=== PATIENT | male | born 1960 | race Caucasian/White ===

== ENCOUNTER 2016-02-14 21:49 | Inpatient (IN) | payer OTHER ==
[2016-02-14] MEDS ORDERED: ALBUTEROL SO4 2.5/IPRATROPIUM 0.5 INH SOL 3 ML VIAL.NEB. NEB ONE ×2 (21:53→22:20)
--- NOTE | 2016-02-14 22:08 | PDOC ---
History of Present Illness - General History Source: Patient, EMS Exam Limitations: No Limitations - History of Present Illness Initial Comments: 02/14/16 22:11 The patient is a 55 year old male, with a significant past medical history of CHF, a-fib, "blood clot on heart", CAD, ASHD, Non-ischemic CMP, cardiomegaly, diabetes, diverticulitis, CKD, CRI, HTN, HLD and cirrhosis, who presents to the emergency department with shortness of breath and urinary retention for a couple of days. He notes that the shortness of breath has been worsening. On route EMS administered 3 duonebs. He notes that he has been compliant with his diuretics. The patient denies chest pain, headache and dizziness. Denies fever, chills, nausea, vomit, diarrhea and constipation. Denies dysuria, frequency and hematuria. Allergies: Ciprofloxacine Past surgical history: Right foot debridement Social history: No alcohol, tobacco or drug use reported Cardiology - Dr. Ho <Mario Alberto Martins - Last Filed: 02/14/16 22:11> - General History Source: Patient <Randa Carteran - Last Filed: 02/14/16 22:50> - General Chief Complaint: Respiratory Distress Stated Complaint: S.O.B. Time Seen by Provider: 02/14/16 22:05 Past History <Mario Alberto Martins - Last Filed: 02/14/16 22:11> - Past Medical History Anemia: No Asthma: No Cancer: No Cardiac Disorders: Yes (a-fib, "blood clot on heart", CAD, ASHD, Non-ichemic CMP , cardiomegaly) CVA: Yes (/15(ischemic), 5/15(leftside occipital hemmorrage)-right peripheral impair) COPD: No CHF: Yes Dementia: No Diabetes: Yes (IDDM) GI Disorders: Yes (DIVERTICULOSIS, spleenic abcess) Disorders: Yes (CKD, CRI) HTN: Yes Hypercholesterolemia: Yes Liver Disease: Yes (CIRRHOSIS) Suicide Attempt (Hx): No Seizures: No Thyroid Disease: No - Surgical History Orthopedic Surgery: Yes (RT FOOT debridements) - Immunization History Immunization Up to Date: Yes - Psycho/Social/Smoking Cessation Hx Anxiety: No Suicidal Ideation: No Smoking History: Never smoked Have you smoked in the past 12 months: No Hx Alcohol Use: Yes (socailly) Drug/Substance Use Hx: No Substance Use Type: None Hx Substance Use Treatment: No <Mario Alberto Carter - Last Filed: 02/14/16 22:50> - Past Medical History Allergies/Adverse Reactions: Allergies Allergy/AdvReac Type Severity Reaction Status Date / Time ciprofloxacin [From Cipro] Allergy Severe Rash Verified 02/14/16 22:01 ciprofloxacin HCl Allergy Severe Rash Verified 02/14/16 22:01 [From Cipro] Home Medications: Ambulatory Orders Insulin (Novolog) [Novolog Flexpen -] 4 units SQ AC #1 pen 09/07/14 Atorvastatin Ca [Lipitor] 10 mg PO HS #30 tablet 02/26/15 Hydralazine HCl [Apresoline -] 100 mg PO TID #90 tablet 02/26/15 Insulin (Levemir) [Levemir Vial] 28 units SQ HS #7 ml 02/26/15 Isosorbide Mononitrate [Imdur -] 60 mg PO BID #60 tab.sr.24h 02/26/15 Metoprolol Succinate [Toprol XL -] 150 mg PO BID #60 tab.sr.24h 02/26/15 Amlodipine Besylate [Norvasc -] 5 mg PO DAILY #30 tablet 10/29/15 Apixaban [Eliquis -] 5 mg PO BID #60 tablet 10/29/15 Amoxicillin/Potassium Clav [Augmentin 875-125 Tablet] 1 each PO BID #8 tablet Clindamycin [Cleocin -] 300 mg PO Q6HPO #16 capsule 12/20/15 Torsemide [Demadex] 60 mg PO DAILY #90 tablet 12/20/15 Review of Systems - Review of Systems Able to Perform ROS?: Yes Comments:: 02/14/16 22:11 GENERAL/CONSTITUTIONAL: No fever or chills. No weakness. HEAD, EYES, EARS, NOSE AND THROAT: No change in vision. No ear pain or discharge. No sore throat. CARDIOVASCULAR: +Shortness of breath. No chest pain RESPIRATORY: No cough, wheezing, or hemoptysis. GASTROINTESTINAL: No nausea, vomiting, diarrhea or constipation. GENITOURINARY: +Urinary retention. No dysuria, frequency MUSCULOSKELETAL: No joint or muscle swelling or pain. No neck or back pain. SKIN: No rash NEUROLOGIC: No headache, vertigo, loss of consciousness, or change in strength/ sensation. ENDOCRINE: No increased thirst. No abnormal weight change HEMATOLOGIC/LYMPHATIC: No anemia, easy bleeding, or history of blood clots. ALLERGIC/IMMUNOLOGIC: No hives or skin allergy. <Mario Alberto Martins - Last Filed: 02/14/16 22:11> *Physical Exam - Vital Signs Last Vital Signs Temp Pulse Resp BP Pulse Ox 97.6 F 122 H 30 H 166/144 96 02/14/16 22:01 02/14/16 22:01 02/14/16 22:01 02/14/16 22:01 02/14/16 22:01 - Physical Exam Comments: 02/14/16 22:11 GENERAL: Awake, alert, and fully oriented, in no acute distress HEAD: No signs of trauma, normocephalic, atraumatic EYES: PERRLA, EOMI, sclera anicteric, conjunctiva clear ENT: Auricles normal inspection, hearing grossly normal, nares patent, oropharynx clear without exudates. Moist mucosa NECK: Normal ROM, supple, no lymphadenopathy, JVD, or masses LUNGS: +Wheezing, crackles. Speaks full sentences HEART: +Tachycardia. Normal S1 and S2, no murmurs, rubs or gallops, peripheral pulses normal and equal bilaterally. ABDOMEN: Soft, distended and obese. Nontender, normoactive bowel sounds. No guarding, no rebound. No masses EXTREMITIES: +Lower extremity 2+ pitting edema bilaterally. Normal range of motion. No clubbing or cyanosis. NEUROLOGICAL: Cranial nerves II through XII grossly intact. Normal speech, no focal sensorimotor deficits SKIN: Warm, Dry, normal turgor, no rashes or lesions noted. <Mario Alberto Martins - Last Filed: 02/14/16 22:11> - Vital Signs Last Vital Signs Temp Pulse Resp BP Pulse Ox 97.6 F 122 H 30 H 166/144 96 02/14/16 22:01 02/14/16 22:01 02/14/16 22:01 02/14/16 22:01 02/14/16 22:01 <Mario Alberto Carter - Last Filed: 02/14/16 22:50> ED Treatment Course - LABORATORY CBC & Chemistry Diagram: 02/14/16 22:10 02/14/16 22:10 <Mario Alberto Carter - Last Filed: 02/14/16 22:50> *DC/Admit/Observation/Transfer - Attestations Scribe Attestion: 02/14/16 22:12 Documentation prepared by Mario Alberto Martins, acting as medical artist for Mario Alberto Carter DO <Mario Alberto Martins - Last Filed: 02/14/16 22:11> - Discharge Dispostion Admit: Yes <Mario Alberto Carter - Last Filed: 02/14/16 22:50> Diagnosis at time of Disposition: atrial fibrillation CHF (congestive heart failure) Qualifiers: Congestive heart failure type: unspecified congestive heart failure type Congestive heart failure chronicity: acute on chronic Qualified Code(s): I50.9 - Heart failure, unspecified - Discharge Dispostion Condition at time of disposition: Stable - Referrals Referrals: Mika Ho MD [Primary Care Provider] -
[2016-02-14] MEDS ORDERED: FUROSEMIDE 40 MG/4 ML INJECTABLE VIAL IVPUSH ONE ×2 (22:13→23:45)
[2016-02-14] MEDS ORDERED: FUROSEMIDE 40 MG/4 ML INJECTABLE VIAL ONE ×2 (22:20→23:51)
[2016-02-14 22:25] LABS: BASOPHIL 1.1 % (0-2.0); EOSINOPHIL 2.3 % (0-4.5); MCH 27.2 pg (25.7-33.7); MEAN CELL VOLUME 87.9 fl (80-96); MEAN PLT VOLUME 8.1 fl (7.5-11.1); NEUTROPHILS 74.4 % (42.8-82.8); PLATELET COUNT 220 K/MM3 (134-434); RDW 17.8 % (11.9-15.9); WHITE BLOOD COUNT 9.9 K/mm3 (4.0-10.0)
[2016-02-14 22:35] LABS: INR 1.37 (0.82-1.09); PROTHROMBIN TIME (PATIENT) 15.2 SEC (9.98-11.88)
[2016-02-14 22:46] LABS: ALBUMIN 2.5 g/dl (3.4-5.0); BILIRUBIN,TOTAL 0.7 mg/dL (0.2-1.0); CALCIUM 7.8 mg/dL (8.5-10.1); CREATININE 2.6 mg/dL (0.7-1.3); TOT PROT 6.8 g/dl (6.4-8.2)
[2016-02-14 22:47] LABS: MAGNESIUM 2.2 mg/dL (1.8-2.4)
[2016-02-14] MEDS ORDERED: dilTIAZem HCL 50 MG/10 ML - 10 ML VIAL IVPUSH ONE (23:20)
[2016-02-14] MEDS ORDERED: dilTIAZem HCL 125 MG/25 ML - 25 ML VIAL ONE (23:29)
[2016-02-15 00:41] LABS: PH,URINE 5.5 (5.0-8.0); URINE APPEARANCE CLEAR; URINE BILIRUBIN NEGATIVE (NEGATIVE); URINE COLOR LT. YELLOW; URINE GLUCOSE (UA) NEGATIVE (NEGATIVE); URINE KETONE NEGATIVE (NEGATIVE); URINE LEUK ESTERASE NEGATIVE (NEGATIVE); URINE NITRITE NEGATIVE (NEGATIVE); URINE UROBILINOGEN 0.2 E.U/dl E.U./dl (0.2-1.0)
[2016-02-15 00:52] LABS: URINE BLOOD 2+ (NEGATIVE); URINE PROTEIN 2+ (NEGATIVE)
[2016-02-15] MEDS ORDERED: dilTIAZem HCL 50 MG/10 ML - 10 ML VIAL IVPUSH ONE (00:56)
[2016-02-15 01:17] LABS: URINE BACTERIA RARE /hpf (NONE SEEN); URINE MUCUS RARE; URINE RBC 1 /hpf (0-3); URINE WBC 2 /hpf (3-5)
[2016-02-15] MEDS ORDERED: FUROSEMIDE 40 MG/4 ML INJECTABLE VIAL IVPUSH ONE (02:07)
[2016-02-15] MEDS ORDERED: ACETAMINOPHEN 325 MG TABLET (FP) PO PRN (02:20)
[2016-02-15] MEDS ORDERED: FUROSEMIDE 40 MG/4 ML INJECTABLE VIAL ONE (02:21)
[2016-02-15] MEDS ORDERED: KETOROLAC TROMETHAMINE 30 MG/1 ML VIAL IVPUSH ONE (02:54)
[2016-02-15] MEDS ORDERED: KETOROLAC TROMETHAMINE 30 MG/1 ML VIAL ONE (02:57)
[2016-02-15] MEDS ORDERED: NITROGLYCERIN 2% OINTMENT - 1GM PACKET TD ONE (03:46)
[2016-02-15 03:59] LABS: TROPONIN I 0.14 ng/ml (0.00-0.05)
[2016-02-15] MEDS ORDERED: ENALAPRILAT DIHYDRATE 2.5 MG/2 ML VIAL IVPB ONE ×2 (04:08→04:09)
[2016-02-15 06:23] VITALS: BMI 48.0
[2016-02-15] MEDS: hydrALAZINE HCL 50 MG TABLET (FP) PO SCH ×3 (06:35→21:28)
[2016-02-15] MEDS: INSULIN (NOVOLOG) ASPART 100 UNITS/ML 10ML VIAL SQ SCH ×3 (06:35→18:04)
[2016-02-15] MEDS ORDERED: METOPROLOL SUCCINATE 100 MG TAB.SR.24H (FP) PO ONE ×2 (08:53→21:20)
[2016-02-15] MEDS ORDERED: METOPROLOL SUCCINATE 50 MG TAB.SR.24H (FP) ONE ×2 (08:54→21:20)
--- NOTE | 2016-02-15 09:12 | CONSULT ---
Cardiology Consult (text) - Consultation Consultation Note: CC: sob HPI: 55 yo with h/o afib with prior ?embolic CVA 05/2014 ([facility]) right visual field cut , syncope 09/19 with ICH at that time vs other entity on MRI and recurrent syncope 12/2015 (unclear etiology), Non-ischemic cardiomyopathy dx 07/2013 at [facility], HTN, HPL, Rt carotid stenosis, IDDM, RLE cellulitis s/p debridement , MSSA bacteremia 10/2015, DAMIAN not on home cpap, ckd, who presents with sob. +worsening dyspnea and orthopnea for the past month. + abdominal distension, pannus edema and weight gain. Last d/c weight 355 lbs, now 384 lbs. Has been adherent with torsemide 60 mg/ day, but states over the past month has not been making much urine. States erythema/edema of lower extremities is stable. + dizziness worsening lately, difficulty with ambulation due to dizziness has been very sedentary recently. No transient neurologic symptoms. s/p duobnebs No cp, palps, claudication, bleeding. No f/c/s, n/v/d, visual disturbances, nasal congestion, headache. Sees dr cohen for cardio but very poor f/u and med compliance. Past Medical History: per hpi Past Surgical History: per hpi Social hx: Former smoker, no etoh or illicits Family Disease History: Heart Disease: Mother ([place] 60's) ros: per hpi Home Medications - Allergies Allergies/Adverse Reactions: Allergies Allergy/AdvReac Type Severity Reaction Status Date / Time ciprofloxacin [From Cipro] Allergy Severe Rash Verified 02/24/15 08:23 ciprofloxacin HCl Allergy Severe Rash Verified 02/24/15 08:23 [From Cipro] Ambulatory Orders Insulin (Novolog) [Novolog Flexpen -] 4 units SQ AC #1 pen 09/07/14 Atorvastatin Ca [Lipitor] 10 mg PO HS #30 tablet 02/26/15 Hydralazine HCl [Apresoline -] 100 mg PO TID #90 tablet 02/26/15 Insulin (Levemir) [Levemir Vial] 28 units SQ HS #7 ml 02/26/15 Isosorbide Mononitrate [Imdur -] 60 mg PO BID #60 tab.sr.24h 02/26/15 Metoprolol Succinate [Toprol XL -] 150 mg PO BID #60 tab.sr.24h 02/26/15 Amlodipine Besylate [Norvasc -] 5 mg PO DAILY #30 tablet 10/29/15 Apixaban [Eliquis -] 5 mg PO BID #60 tablet 10/29/15 Torsemide [Demadex] 60 mg PO DAILY #90 tablet 12/20/15 Current Medications Acetaminophen (Tylenol -) 650 mg PO Q6H PRN PRN Reason: FEVER OR PAIN Albuterol/Ipratropium (Duoneb -) 1 amp NEB Q4H PRN PRN Reason: SHORTNESS OF BREATH Amlodipine Besylate (Norvasc -) 5 mg PO DAILY [facility] Apixaban (Eliquis -) 5 mg PO BID [facility] Atorvastatin Calcium (Lipitor -) 10 mg PO HS [facility] Hydralazine HCl (Apresoline -) 100 mg PO TID [facility] Last Admin: 02/15/16 06:35 Dose: 100 mg Insulin Aspart (Novolog Vial) 4 units SQ TIDAC [facility] Last Admin: 02/15/16 06:35 Dose: 4 units Insulin Detemir (Levemir Vial) 28 units SQ HS [facility] Isosorbide Mononitrate (Imdur -) 60 mg PO BID [facility] Metoprolol Succinate 100 mg/ (Metoprolol Succinate 50 mg) 150 mg PO BID [facility] Torsemide (Demadex -) 60 mg PO DAILY [facility] Vital Signs - 24 hr 02/14/16 02/14/16 02/14/16 22:01 23:02 23:30 Temperature 97.6 F Pulse Rate 122 H Pulse Rate [ 145 H Right Radial] Respiratory 30 H 22 Rate Blood Pressure 166/144 Blood Pressure 196/135 [Left Arm] O2 Sat by Pulse 96 97 100 Oximetry (%) 02/15/16 02/15/16 02/15/16 00:11 01:11 02:07 Temperature Pulse Rate Pulse Rate [ 128 H 133 H 119 H Right Radial] Respiratory 20 22 22 Rate Blood Pressure Blood Pressure 169/132 195/135 162/120 [Left Arm] O2 Sat by Pulse 100 100 100 Oximetry (%) 02/15/16 02/15/16 02/15/16 03:46 04:03 04:50 Temperature Pulse Rate Pulse Rate [ 108 H 97 H 114 H Right Radial] Respiratory 20 20 20 Rate Blood Pressure Blood Pressure 162/121 148/116 124/100 [Left Arm] O2 Sat by Pulse 97 98 99 Oximetry (%) 02/15/16 02/15/16 06:23 06:25 Temperature 98 F Pulse Rate 112 H Pulse Rate [ Right Radial] Respiratory 20 Rate Blood Pressure 127/83 Blood Pressure [Left Arm] O2 Sat by Pulse 99 97 Oximetry (%) Intake & Output 02/13/16 02/14/16 02/15/16 02/16/16 07:59 07:59 07:59 07:59 Intake Total 250 Balance 250 Weight 384 lb 5 oz Constitutional: Yes: No Distress, Obese Eyes: No: Sclera Icterus HENT: No: Nasal Congestion Respiratory: Yes: bibasilar rales. No: Accessory Muscle Use Gastrointestinal: Yes: Normal Bowel Sounds. obese No: Distention, Hepatomegaly, Palpable Mass, tenderness Cardiovascular: Yes: Irregular Rate and Rhythm JVD: tds Carotid Bruit: No PMI: Non-Displaced Heart Sounds: Yes: nl, S1, S2. No: Gallop Murmur: No: Systolic Murmur, Diastolic Murmur Musculoskeletal: Yes: Other (No kyphosis) Extremities: erythema and skin excoriations Edema: trace to LE, erythema and edema of dependent pannus. Peripheral Pulses: 2+ Left Carotid, 2+ Right Carotid, diminshed dp/pt Integumentary: No: Jaundice diaphoresis Neurological: Yes: Alert, Oriented (x3) Psychiatric: No: Agitated CBC, BMP 02/14/16 22:10 02/15/16 03:05 Laboratory Tests 12/11/15 02/14/16 02/14/16 16:00 22:10 22:10 INR 1.37 H Magnesium Total Bilirubin 0.7 D AST 67 H D ALT 60 D Alkaline Phosphatase 197 H D Creatine Kinase Creatine Kinase Index CK-MB (CK-2) Troponin I B-Natriuretic Peptide 65695.80 H Albumin 2.5 L 02/14/16 02/15/16 22:10 03:05 INR Magnesium 2.2 Total Bilirubin AST ALT Alkaline Phosphatase Creatine Kinase 523 H D Creatine Kinase Index 1.7 CK-MB (CK-2) 8.920 H Troponin I 0.14 H D B-Natriuretic Peptide 79344.15 H Albumin EKG: afib, VR 118 bpm. RAD. No acute ischemic changes. Similar to priors except for rate. tele: afib, HR 110's. . CXR: Mild bilateral increased interstitial lung markings, limited evaluation of left lung base (underexposure). Echo 10/2015: Moderately decreased LV function (global). Nl RV size/fn. 1+ MR. mild-mod TR. mild ao dilation. Trivial effusion. cath 06/2013: 60-70 rpl1, 80-90 d1, subtotal om1 MIBI 08/2014 (pers): no STs; no ischemia seen; predominantly fixed medium-sized inferior/basal inferolat/apico-inferior defect c/w diaphragm attenuation; EF 46% 55 yo with h/o afib with prior ?embolic CVA 05/2014 ([facility]) right visual field cut , syncope 09/19 with ICH at that time vs other entity on MRI and recurrent syncope 12/2015 (unclear etiology), Non-ischemic cardiomyopathy dx 07/2013 at [facility], HTN, HPL, Rt carotid stenosis, IDDM, RLE cellulitis s/p debridement , MSSA bacteremia 10/2015, DAMIAN not on home cpap, ckd, who presents with sob/ RVR. acute systolic HF exacerbation, NICM - Last d/c weight 355 lbs and discharged on torsemide 60 qd. In past was diuresed with IV lasix 80 iv bid, would initiate. Close monitoring of creatinine which has been labile with diuresis in past. (Needs follow up labs today) - Exacerbation may be related to RVR on presentation. - Daily standing weights, strict i/o's and daily bmp. -cont home LV dysfxn regimen: bb, imdur/hydralazine (not on kaylan/arb 2/2 ckd) - worsened dizziness, ? poor cardiac output vs. uncontrolled weights vs. orthostasis. Reevaluate symptoms with diuresis and improved heart rate control. - repeat echo. 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 Contrast enhancing lesion seen 06/19 and the prior heme on MRI were in same location and was thought to be most likely 2/2 post CVA hemorrhagic conversion (i.e. without hi risk for recurrent ICH). Less likely low-grade glioma, which would have very low risk of bleeding if AC resumed--hence the recs at that time were for usual AC considerations for his afib, no special precautions (pt failed repeatedly to f/u with neuro as outpatient, and then worsening renal fxn made him hi risk for morena when here last time). -warfarin changed to eliquis on past admits due to pt's repeated refusal to f/u with cardiology or have reliable INRs and make rec'd coumadin dose change, with worrisome CHADS-VASC 6 = estimated risk 9-10%/year, and hence concern he will stroke again on warfarin. - Now, however, with worsened renal function. Would transition to heparin drip until direction of renal function is clarified. -Currently not rate controlled, but just received first dose of home toprol this morning. Con't home regimen toprol 150 mg bid, and monitor for improvement in rate control. cad : -managed medically, no angina/ACS/ischemia since -Here with mild elevation in troponin in setting of elevated CK, HF exacerbation and CKD. Would trend enzymes. If has upward trend, would consider stress testing to risk stratify and treatment as NSTEMI. Repeat echo. - continue home statin, bb, imdur, hydralazine - Con't to defer ASA as pt with stable CAD in past and also on AC (and ? incr'd risk for ICH) R carotid stenosis: -ADRIENNE with PSV in high 200s cm/sec here, suspicious for >70% stenosis per radiology report -vascular surgery c/s on prior admit felt stenosis is at MOST 70% (deferred further imaging with contrast due to low GFR). Recommended deferring CEA unless imaging suggested >80% stenosis, or if he developed symptoms/acute cerebrovascular event. Syncope, ? CVA/TIA (recurrent) - Previously pt had episodes of orthostatic hypotension sec to bp meds and diuretics. - similar symptoms at time of possible hemorrhagic CVA in 2014 (collapsed at home then), see discussion below. - had transient neurologic symptoms (speech disturbance) in 12/2015 but not thought to have had TIA per neuro. - Now with recurrent dizziness, but without neurologic symptoms/deficits. Con' t to monitor. CKD: - prior baseline creat ranged 1.5-2.2. s/p GILLES 10/21--went home with creat 2.8 and in 12/2015 creatine stable around 2.5-2.6, possible new baseline. - monitor with diuresis. htn: - h/o recurrent orthostatic hypotension symptoms and falls at home had complicated aggressive tx targets in the past. - Hypertensive on presentation. Would resume home regimen amlodipine 5 mg/day, Hydralazine 100 mg PO TID, Isosorbide Mononitrate 60 mg PO BID, Metoprolol Succinate 150 mg PO BID and monitor. thoracic aorta aneurysm: - mod dilated aortic root (mild on most recent echo) - cont BB as doing morbid obesity, ? DAMIAN: -suspected DAMIAN, positive study in past but he has refused f/u or tx. bipap per pmd.
[2016-02-15] MEDS ORDERED: TORSEMIDE 20 MG TABLET (FP) PO SCH (10:00)
[2016-02-15] MEDS ORDERED: METOPROLOL SUCCINATE 100 MG TAB.SR.24H (FP) PO SCH (10:00)
[2016-02-15] MEDS ORDERED: APIXABAN 5 MG TABLET PO SCH (10:00)
[2016-02-15] MEDS: ISOSORBIDE MONONITRATE 60 MG TAB.SR.24H (FP) PO SCH ×2 (10:06→21:29)
[2016-02-15] MEDS: amLODIPine BESYLATE 5 MG TABLET (FP) PO SCH (10:06)
[2016-02-15] MEDS: METOPROLOL SUCCINATE 100 MG, METOPROLOL SUCCINATE 50 MG PO SCH ×2 (10:06→21:28)
[2016-02-15] MEDS: ALBUTEROL SO4 2.5/IPRATROPIUM 0.5 INH SOL 3 ML VIAL.NEB. NEB PRN (15:16)
[2016-02-15] MEDS: FUROSEMIDE 40 MG/4 ML INJECTABLE VIAL IVPUSH SCH (15:44)
[2016-02-15 16:50] LABS: ALBUMIN 2.3 g/dl (3.4-5.0); BILIRUBIN,TOTAL 0.8 mg/dL (0.2-1.0); CALCIUM 7.3 mg/dL (8.5-10.1); CREATININE 2.7 mg/dL (0.7-1.3); TOT PROT 6.5 g/dl (6.4-8.2)
[2016-02-15 16:52] LABS: TROPONIN I 0.15 ng/ml (0.00-0.05)
--- NOTE | 2016-02-15 17:37 | HP ---
Admitting History and Physical - Primary Care Physician PCP: Seamus Calderon - Admission Chief Complaint: sob History of Present Illness: The patient is a 55 year old male, with a significant past medical history of CHF, a-fib, "blood clot on heart", CAD, ASHD, Non-ischemic CMP, cardiomegaly, diabetes, diverticulitis, CKD, CRI, HTN, HLD and cirrhosis, who presents to the emergency department with shortness of breath and urinary retention for a couple of days. He notes that the shortness of breath has been worsening. On route EMS administered 3 duonebs. He notes that he has been compliant with his diuretics. - Past Medical History HEAD OF ACQUISITIONS: Yes: CVA (On 06/02/14 while in [facility]; right visual field cut), Other (hemorrhagic post. circualtion cerebral infarction while on anticoagulation therapy.) Cardiovascular: Yes: AFIB (Last dose Xarelto about two weeks ago; on heparin drip thru 06/11/14), CHF (Systolic), HTN, Hyperlipdemia, Other (Non-ischemic cardiomyopathy diagnosed 07/19 at [facility]) Pulmonary: Yes: Sleep Apnea (Not on home CPAP) Renal/: Yes: Renal Inusuff Infectious Disease: Yes: Other (right foot abcess) Endocrine: Yes: Diabetes Mellitus - Past Surgical History Past Surgical History: Yes: None - Smoking History Smoking history: Never smoked Have you smoked in the past 12 months: No - Alcohol/Substance Use Hx Alcohol Use: Yes (SOCIALLY) History of Substance Use: reports: None Home Medications - Allergies Allergies/Adverse Reactions: Allergies Allergy/AdvReac Type Severity Reaction Status Date / Time ciprofloxacin [From Cipro] Allergy Severe Rash Verified 02/14/16 22:01 ciprofloxacin HCl Allergy Severe Rash Verified 02/14/16 22:01 [From Cipro] - Home Medications Home Medications: Ambulatory Orders Insulin (Novolog) [Novolog Flexpen -] 4 units SQ AC #1 pen 09/07/14 Atorvastatin Ca [Lipitor] 10 mg PO HS #30 tablet 02/26/15 Hydralazine HCl [Apresoline -] 100 mg PO TID #90 tablet 02/26/15 Insulin (Levemir) [Levemir Vial] 28 units SQ HS #7 ml 02/26/15 Isosorbide Mononitrate [Imdur -] 60 mg PO BID #60 tab.sr.24h 02/26/15 Metoprolol Succinate [Toprol XL -] 150 mg PO BID #60 tab.sr.24h 02/26/15 Amlodipine Besylate [Norvasc -] 5 mg PO DAILY #30 tablet 10/29/15 Apixaban [Eliquis -] 5 mg PO BID #60 tablet 10/29/15 Torsemide [Demadex] 60 mg PO DAILY #90 tablet 12/20/15 Family Disease History - Family Disease History Family Disease History: Heart Disease: Mother ([place] 60's) Review of Systems - Review of Systems Respiratory: reports: SOB Physical Examination Vital Signs: Vital Signs Temperature 98.4 F 02/15/16 14:20 Pulse Rate 106 H 02/15/16 14:20 Respiratory Rate 18 02/15/16 14:20 Blood Pressure 140/70 02/15/16 14:20 O2 Sat by Pulse Oximetry (%) 95 02/15/16 09:00 Constitutional: Yes: No Distress Neck: Yes: Supple Cardiovascular: Yes: Regular Rate and Rhythm Respiratory: Yes: Rhonchi Gastrointestinal: Yes: Normal Bowel Sounds Edema: LLE: 1+, RLE: 1+ Neurological: Yes: Alert, Oriented Labs: CBC, BMP 02/15/16 15:45 Problem List - Problems (1) CHF (congestive heart failure) Assessment/Plan: on diuretic continue other meds Code(s): I50.9 - HEART FAILURE, UNSPECIFIED Qualifiers: Congestive heart failure type: unspecified congestive heart failure type Congestive heart failure chronicity: acute on chronic Qualified Code(s ): I50.9 - Heart failure, unspecified (2) Hyperlipemia Assessment/Plan: on meds stable Code(s): E78.5 - HYPERLIPIDEMIA, UNSPECIFIED (3) Uncontrolled diabetes mellitus Assessment/Plan: on insulin, bgms will check hgb a1c Code(s): E11.65 - TYPE 2 DIABETES MELLITUS WITH HYPERGLYCEMIA (4) atrial fibrillation Assessment/Plan: on anticoagulation (5) Acute on chronic renal failure Code(s): N17.9 - ACUTE KIDNEY FAILURE, UNSPECIFIED N18.9 - CHRONIC KIDNEY DISEASE, UNSPECIFIED Assessment/Plan Laboratory Tests 02/14/16 02/14/16 02/14/16 22:10 22:10 22:10 WBC 9.9 D RBC 5.14 D Hgb 14.0 D Hct 45.2 D MCV 87.9 MCHC 31.0 L RDW 17.8 H Plt Count 220 MPV 8.1 Neutrophils % 74.4 Lymphocytes % 11.6 D Monocytes % 10.6 H Eosinophils % 2.3 D Basophils % 1.1 INR 1.37 H Sodium 137 Potassium 4.2 D Chloride 103 Carbon Dioxide 25 D Anion Gap 9 BUN 40 H D Creatinine 2.6 H Creat Clearance w eGFR 25.95 POC Glucometer Random Glucose 175 H Calcium 7.8 L Magnesium Total Bilirubin 0.7 D AST 67 H D ALT 60 D Alkaline Phosphatase 197 H D Creatine Kinase Creatine Kinase Index CK-MB (CK-2) CK-MB (CK-2) Rel Index Troponin I B-Natriuretic Peptide Total Protein 6.8 Albumin 2.5 L Urine Color Urine Appearance Urine pH Ur Specific [place] Urine Protein Urine Glucose (UA) Urine Ketones Urine Blood Urine Nitrite Urine Bilirubin Urine Urobilinogen Ur Leukocyte Esterase Urine RBC Urine WBC Ur Epithelial Cells Urine Bacteria Urine Mucus 02/14/16 02/15/16 02/15/16 22:10 00:02 03:05 WBC RBC Hgb Hct MCV MCHC RDW Plt Count MPV Neutrophils % Lymphocytes % Monocytes % Eosinophils % Basophils % INR Sodium Potassium Chloride Carbon Dioxide Anion Gap BUN Creatinine Creat Clearance w eGFR POC Glucometer Random Glucose Calcium Magnesium 2.2 Total Bilirubin AST ALT Alkaline Phosphatase Creatine Kinase 523 H D Creatine Kinase Index 1.7 CK-MB (CK-2) 8.920 H CK-MB (CK-2) Rel Index Troponin I 0.14 H D B-Natriuretic Peptide 02021.15 H Total Protein Albumin Urine Color Lt. yellow Urine Appearance Clear Urine pH 5.5 Ur Specific [place] 1.025 Urine Protein 2+ H Urine Glucose (UA) Negative Urine Ketones Negative Urine Blood 2+ H Urine Nitrite Negative Urine Bilirubin Negative Urine Urobilinogen 0.2 e.u/dl Ur Leukocyte Esterase Negative Urine RBC 1 Urine WBC 2 Ur Epithelial Cells Rare Urine Bacteria Rare Urine Mucus Rare 02/15/16 02/15/16 02/15/16 03:05 03:05 06:11 WBC RBC Hgb Hct MCV MCHC RDW Plt Count MPV Neutrophils % Lymphocytes % Monocytes % Eosinophils % Basophils % INR Sodium Potassium 4.0 Chloride Carbon Dioxide Anion Gap BUN Creatinine Creat Clearance w eGFR POC Glucometer 138 Random Glucose Calcium Magnesium Total Bilirubin AST ALT Alkaline Phosphatase Creatine Kinase Creatine Kinase Index CK-MB (CK-2) CK-MB (CK-2) Rel Index Cancelled Troponin I B-Natriuretic Peptide Total Protein Albumin Urine Color Urine Appearance Urine pH Ur Specific [place] Urine Protein Urine Glucose (UA) Urine Ketones Urine Blood Urine Nitrite Urine Bilirubin Urine Urobilinogen Ur Leukocyte Esterase Urine RBC Urine WBC Ur Epithelial Cells Urine Bacteria Urine Mucus 02/15/16 02/15/16 02/15/16 11:41 15:45 15:45 WBC RBC Hgb Hct MCV MCHC RDW Plt Count MPV Neutrophils % Lymphocytes % Monocytes % Eosinophils % Basophils % INR Sodium 139 Potassium 3.9 Chloride 103 Carbon Dioxide 26 Anion Gap 10 BUN 40 H Creatinine 2.7 H Creat Clearance w eGFR 24.84 POC Glucometer 118 Random Glucose 138 H D Calcium 7.3 L Magnesium Total Bilirubin 0.8 AST 61 H ALT 50 Alkaline Phosphatase 170 H Creatine Kinase 523 H Creatine Kinase Index CK-MB (CK-2) CK-MB (CK-2) Rel Index Cancelled Troponin I 0.15 H B-Natriuretic Peptide Total Protein 6.5 Albumin 2.3 L Urine Color Urine Appearance Urine pH Ur Specific [place] Urine Protein Urine Glucose (UA) Urine Ketones Urine Blood Urine Nitrite Urine Bilirubin Urine Urobilinogen Ur Leukocyte Esterase Urine RBC Urine WBC Ur Epithelial Cells Urine Bacteria Urine Mucus 02/15/16 18:27 WBC RBC Hgb Hct MCV MCHC RDW Plt Count MPV Neutrophils % Lymphocytes % Monocytes % Eosinophils % Basophils % INR Sodium Potassium Chloride Carbon Dioxide Anion Gap BUN Creatinine Creat Clearance w eGFR POC Glucometer 165 Random Glucose Calcium Magnesium Total Bilirubin AST ALT Alkaline Phosphatase Creatine Kinase Creatine Kinase Index CK-MB (CK-2) CK-MB (CK-2) Rel Index Troponin I B-Natriuretic Peptide Total Protein Albumin Urine Color Urine Appearance Urine pH Ur Specific [place] Urine Protein Urine Glucose (UA) Urine Ketones Urine Blood Urine Nitrite Urine Bilirubin Urine Urobilinogen Ur Leukocyte Esterase Urine RBC Urine WBC Ur Epithelial Cells Urine Bacteria Urine Mucus Active Medications Generic Name Dose Route Start Last Admin Trade Name Freq PRN Reason Stop Dose Admin Acetaminophen 650 mg 02/15/16 02:20 Tylenol - PO Q6H PRN FEVER OR PAIN Albuterol/Ipratropium 1 amp 02/15/16 02:22 02/15/16 15:16 Duoneb - NEB 1 amp Q4H PRN Administration SHORTNESS OF BREATH Amlodipine Besylate 5 mg 02/15/16 10:00 02/15/16 10:06 Norvasc - PO 5 mg DAILY ANURADHA Administration Atorvastatin Calcium 10 mg 02/15/16 22:00 Lipitor - PO HS ANURADHA Furosemide 80 mg 02/15/16 14:00 02/15/16 15:44 Lasix Injection - IVPUSH 80 mg BID@0600,1400 ANURADHA Administration Heparin Sodium (Porcine) 1,000 unit 02/15/16 18:13 Heparin - IVPUSH PRN PRN Heparin Heparin Sodium (Porcine) 5,000 unit 02/15/16 18:13 Heparin - IVPUSH PRN PRN Heparin Hydralazine HCl 100 mg 02/15/16 06:00 02/15/16 15:44 Apresoline - PO 100 mg TID [facility] Administration Heparin Sodium (Porcine) 25, 500 mls @ 20 mls/hr 02/15/16 18:15 000 unit/ Sodium Chloride IV TITR [facility] Protocol 1,000 UNIT/HR Insulin Aspart 4 units 02/15/16 07:00 02/15/16 11:43 Novolog Vial SQ Not Given TIDAC [facility] Insulin Detemir 28 units 02/15/16 22:00 Levemir Vial SQ HS [facility] Isosorbide Mononitrate 60 mg 02/15/16 10:00 02/15/16 10:06 Imdur - PO 60 mg BID ANURADHA Administration Metoprolol Succinate 100 mg/ 150 mg 02/15/16 10:00 02/15/16 10:06 Metoprolol Succinate 50 mg PO 150 mg BID ANURADHA Administration 1.chf on diuretics and cardiac meds 2.uncontrolled dm on insulin will check hgba1c 3.afib on iv heparin 4.ckd monitor renal function 5.htn 6.morbid obesity [place] on bipap at night
--- NOTE | 2016-02-15 18:10 | EKG ---
Test Reason : Blood Pressure : / mmHG Vent. Rate : 118 BPM Atrial Rate : 202 BPM P-R Int : 000 ms QRS Dur : 096 ms QT Int : 352 ms P-R-T Axes : 000 165 102 degrees QTc Int : 493 ms ATRIAL FIBRILLATION WITH RAPID VENTRICULAR RESPONSE POOR R WAVE PROGRESSION WHEN COMPARED WITH ECG OF 11-DEC-2015 15:55, VENT. RATE HAS INCREASED Confirmed by JAZ COKER MD ([id number]) on 02/15/2016 6:09:39 PM Referred By: Confirmed By:JAZ COKER MD
[2016-02-15] MEDS: INSULIN DETEMIR 100 UNITS/ML MDV SQ SCH (21:26)
[2016-02-15] MEDS: ATORVASTATIN CA 10 MG TABLET (FP) PO SCH (21:28)
[2016-02-15 23:24] LABS: INR 1.47 (0.82-1.09); PROTHROMBIN TIME (PATIENT) 16.3 SEC (9.98-11.88)
[2016-02-15 23:26] LABS: ACTIVATED PTT 33.3 SECONDS (26.9-34.4)
[2016-02-16] MEDS: HEPARIN - 25,000 UNIT in SODIUM CHLORIDE 495 ML IV SCH ×2 (00:47→14:40)
[2016-02-16] MEDS: hydrALAZINE HCL 50 MG TABLET (FP) PO SCH ×3 (06:40→21:57)
[2016-02-16] MEDS: FUROSEMIDE 40 MG/4 ML INJECTABLE VIAL IVPUSH SCH ×2 (06:43→15:46)
[2016-02-16] MEDS: INSULIN (NOVOLOG) ASPART 100 UNITS/ML 10ML VIAL SQ SCH ×3 (06:44→18:47)
[2016-02-16 08:20] LABS: ALBUMIN 2.4 g/dl (3.4-5.0); BILIRUBIN,TOTAL 0.9 mg/dL (0.2-1.0); CALCIUM 7.4 mg/dL (8.5-10.1); CREATININE 2.9 mg/dL (0.7-1.3); TOT PROT 6.6 g/dl (6.4-8.2)
[2016-02-16] MEDS: ALBUTEROL SO4 2.5/IPRATROPIUM 0.5 INH SOL 3 ML VIAL.NEB. NEB PRN ×3 (08:58→17:42)
[2016-02-16 09:53] LABS: TROPONIN I 0.14 ng/ml (0.00-0.05)
--- NOTE | 2016-02-16 10:17 | PN ---
Progress Note (short form) - Note Progress Note: s: still sob but better, no cp palps dizzy o: Vital Signs Period Temp Pulse Resp BP Sys/Perez Pulse Ox Last 24 Hr 97.9 F-98.5 F 101-120 18-20 104-140/68-98 95 Constitutional: Yes: No Distress, Obese Eyes: No: Sclera Icterus Respiratory: Yes: bibasilar rales. No: Accessory Muscle Use Gastrointestinal: Yes: Normal Bowel Sounds. obese No: Distention, Hepatomegaly, Palpable Mass, tenderness Cardiovascular: Yes: Irregular Rate and Rhythm JVD: tds Heart Sounds: Yes: nl, S1, S2. No: Gallop Murmur: No: Systolic Murmur, Diastolic Murmur Extremities: erythema and skin excoriations Edema: trace LE, erythema and edema Integumentary: No: Jaundice diaphoresis Neurological: Yes: Alert, Oriented (x3) Psychiatric: No: Agitated Current Medications Generic Name Dose Route Start Last Admin Trade Name Freq PRN Reason Stop Dose Admin Acetaminophen 650 mg 02/15/16 02:20 Tylenol - PO Q6H PRN FEVER OR PAIN Albuterol/Ipratropium 1 amp 02/15/16 02:22 02/16/16 08:58 Duoneb - NEB 1 amp Q4H PRN Administration SHORTNESS OF BREATH Amlodipine Besylate 5 mg 02/15/16 10:00 02/15/16 10:06 Norvasc - PO 5 mg DAILY ANURADHA Administration Atorvastatin Calcium 10 mg 02/15/16 22:00 02/15/16 21:28 Lipitor - PO 10 mg HS ANURADHA Administration Furosemide 80 mg 02/15/16 14:00 02/16/16 06:43 Lasix Injection - IVPUSH 80 mg BID@0600,1400 ANURADHA Administration Heparin Sodium (Porcine) 1,000 unit 02/15/16 18:13 Heparin - IVPUSH PRN PRN Heparin Heparin Sodium (Porcine) 5,000 unit 02/15/16 18:13 Heparin - IVPUSH PRN PRN Heparin Hydralazine HCl 100 mg 02/15/16 06:00 02/16/16 06:40 Apresoline - PO 100 mg TID ANURADHA Administration Heparin Sodium (Porcine) 25, 500 mls @ 20 mls/hr 02/15/16 18:15 02/16/16 00:47 000 unit/ Sodium Chloride IV 20 mls/hr TITR ANURADHA Administration Protocol 1,000 UNIT/HR Insulin Aspart 4 units 02/15/16 07:00 02/16/16 06:44 Novolog Vial SQ Not Given TIDAC ANURADHA Insulin Detemir 28 units 02/15/16 22:00 02/15/16 21:26 Levemir Vial SQ 28 unit HS ANURADHA Administration Isosorbide Mononitrate 60 mg 02/15/16 10:00 02/15/16 21:29 Imdur - PO 60 mg BID ANURADHA Administration Metoprolol Succinate 100 mg/ 150 mg 02/15/16 10:00 02/15/16 21:28 Metoprolol Succinate 50 mg PO 150 mg BID ANURADHA Administration CBC, BMP 02/14/16 22:10 02/16/16 05:35 EKG: afib, VR 118 bpm. RAD. No acute ischemic changes. Similar to priors except for rate. tele: afib, HR controlled CXR: Mild bilateral increased interstitial lung markings, limited evaluation of left lung base (underexposure). Echo 10/2015: Moderately decreased LV function (global). Nl RV size/fn. 1+ MR. mild-mod TR. mild ao dilation. Trivial effusion. cath 06/2013: 60-70 rpl1, 80-90 d1, subtotal om1 MIBI 08/2014 (pers): no STs; no ischemia seen; predominantly fixed medium-sized inferior/basal inferolat/apico-inferior defect c/w diaphragm attenuation; EF 46% a/p: 55 yo with h/o afib with prior ?embolic CVA 05/2014 ([facility]) right visual field cut, syncope 09/19 with ICH at that time vs other entity on MRI and recurrent syncope 12/2015 (unclear etiology), Non-ischemic cardiomyopathy dx 2013 at [facility], HTN, HPL, Rt carotid stenosis, IDDM, RLE cellulitis s/p debridement, MSSA bacteremia 10/2015, DAMIAN not on home cpap, ckd, who presents with sob/RVR. acute systolic HF exacerbation, NICM - Last d/c weight 355 lbs and discharged on torsemide 60 qd. Here with vol overload again, in past was diuresed with IV lasix 80 iv bid, cont same for now. - Exacerbation may be related to RVR on presentation. - Daily standing weights, strict i/o's and daily bmp. - cont home LV dysfxn regimen: bb, imdur/hydralazine (not on kaylan/arb 2/2 ckd) - worsened dizziness, ? poor cardiac output vs. uncontrolled weights vs. orthostasis. Reevaluate symptoms with diuresis and improved heart rate control. - repeat echo Afib, h/o ischemic cva 05/20, - hemorrhagic CVA 06/19 (Imaging read as ICH or mass lesion): - case discussed with neuro in detail on prior admissions. Contrast enhancing lesion seen 06/19 and the prior heme on MRI were in same location and was thought to be most likely 2/2 post CVA hemorrhagic conversion (i.e. without hi risk for recurrent ICH). Less likely low-grade glioma, which would have very low risk of bleeding if AC resumed--hence the recs at that time were for usual AC considerations for his afib, no special precautions (pt failed repeatedly to f/u with neuro as outpatient, and then worsening renal fxn made him hi risk for morena when here last time). -warfarin changed to eliquis on past admits due to pt's repeated refusal to f/u with cardiology or have reliable INRs and make rec'd coumadin dose change, with worrisome CHADS-VASC 6 = estimated risk 9-10%/year, and hence concern he will stroke again on warfarin. - Now, however, with worsened renal function. Would transition to heparin drip until direction of renal function is clarified. - Con't home regimen toprol 150 mg bid, rate improved on tele overnight cad: -managed medically, no angina/ACS/ischemia since -Here with borderline elevation in troponin, flat trend, likely not acs, instead due to HF exacerbation and gilles/CKD. - continue home statin, bb, imdur, hydralazine - Con't to defer ASA as pt with stable CAD in past and also on AC (and ? incr'd risk for ICH) R carotid stenosis: -ADRIENNE with PSV in high 200s cm/sec here, suspicious for >70% stenosis per radiology report -vascular surgery c/s on prior admit felt stenosis is at MOST 70% (deferred further imaging with contrast due to low GFR). Recommended deferring CEA unless imaging suggested >80% stenosis, or if he developed symptoms/acute cerebrovascular event. Syncope, ? CVA/TIA (recurrent) - Previously pt had episodes of orthostatic hypotension sec to bp meds and diuretics. - similar symptoms at time of possible hemorrhagic CVA in 2014 (collapsed at home then), see discussion below. - had transient neurologic symptoms (speech disturbance) in 12/2015 but not thought to have had TIA per neuro. - Now with recurrent dizziness, but without neurologic symptoms/deficits. Con' t to monitor. CKD: - prior baseline creat ranged 1.5-2.2. s/p GILLES 10/21--went home with creat 2.8 and in 12/2015 creatine stable around 2.5-2.6, possible new baseline. - monitor with diuresis. htn: - h/o recurrent orthostatic hypotension symptoms and falls at home had complicated aggressive tx targets in the past. - cont home regimen amlodipine 5 mg/day, Hydralazine 100 mg PO TID, Isosorbide Mononitrate 60 mg PO BID, Metoprolol Succinate 150 mg PO BID and monitor. thoracic aorta aneurysm: - mod dilated aortic root (mild on most recent echo) - cont BB, bp control as doing morbid obesity, ? DAMIAN: -suspected DAMIAN, positive study in past but he has refused f/u or tx.
[2016-02-16] MEDS ORDERED: METOPROLOL SUCCINATE 100 MG TAB.SR.24H (FP) PO ONE ×2 (10:59→21:51)
[2016-02-16] MEDS ORDERED: METOPROLOL SUCCINATE 50 MG TAB.SR.24H (FP) ONE ×2 (10:59→21:52)
[2016-02-16] MEDS: METOPROLOL SUCCINATE 100 MG, METOPROLOL SUCCINATE 50 MG PO SCH ×2 (11:03→21:57)
[2016-02-16] MEDS: ISOSORBIDE MONONITRATE 60 MG TAB.SR.24H (FP) PO SCH ×2 (11:04→21:57)
[2016-02-16] MEDS: amLODIPine BESYLATE 5 MG TABLET (FP) PO SCH (11:04)
--- NOTE | 2016-02-16 11:23 | CONSULT ---
Consult - text type - Consultation Consultation Note: Renal Consult for CKD/Fluid Overload This is a 55 year old Gentleman with PMhx of CKD stage 4, CHF, Hypertension, DM , Afib, Intra-cranial hemorrhage, Obstructive sleep apnea who presented with complaints of sob and urinary retention with BUN/Cr of 41/2.9. Pt states that he continues to have sob at this time. + Non-productive cough. No fever or chills. No N/V/D. States that he feels like is is retaining urine in his bladder. Denies any history of BPH. Pt currently on IV lasix. PMhx: as above Allergies: NKDA Family Hx: NC Social Hx: NO T/A/D ROS: as per HPI, all other pertinent ros negative Home Meds: Medication Instructions Recorded Insulin (Novolog) [Novolog Flexpen 4 units SQ AC #1 pen 09/07/14 -] Atorvastatin Ca [Lipitor] 10 mg PO HS #30 tablet 02/26/15 Hydralazine HCl [Apresoline -] 100 mg PO TID #90 tablet 02/26/15 Insulin (Levemir) [Levemir Vial] 28 units SQ HS #7 ml 02/26/15 Isosorbide Mononitrate [Imdur -] 60 mg PO BID #60 tab.sr.24h 02/26/15 Metoprolol Succinate [Toprol XL -] 150 mg PO BID #60 tab.sr.24h 02/26/15 Amlodipine Besylate [Norvasc -] 5 mg PO DAILY #30 tablet 10/29/15 Apixaban [Eliquis -] 5 mg PO BID #60 tablet 10/29/15 Torsemide [Demadex] 60 mg PO DAILY #90 tablet 12/20/15 Vital Signs Temperature 97.9 F 02/16/16 02:00 Pulse Rate 120 H 02/16/16 11:03 Respiratory Rate 20 02/16/16 06:00 Blood Pressure 104/68 02/16/16 08:37 O2 Sat by Pulse Oximetry (%) 94 L 02/16/16 11:03 Intake & Output 02/13/16 02/14/16 02/15/16 02/16/16 23:59 23:59 23:59 23:59 Intake Total 950 Output Total 300 Balance 650 Weight 420 lb 384 lb 5 oz 283 lb 12.8 oz Gen: NAD, on NC. Awake and alert HEENT: NC/AT, MMM, No JVD CVS: RRR, No M/R Lungs: CTA, no rales or wheeze Abd: Soft NT/ND Ext: 2+ edema in LE, + erythema. No tenderness : No overt bladder distension Neuro: AAOx3, no focal defects CBC, BMP 02/14/16 22:10 02/16/16 05:35 Laboratory Tests 02/15/16 00:02 Urine Protein 2+ H Urine Blood 2+ H Current Medications Acetaminophen (Tylenol -) 650 mg PO Q6H PRN PRN Reason: FEVER OR PAIN Albuterol/Ipratropium (Duoneb -) 1 amp NEB Q4H PRN PRN Reason: SHORTNESS OF BREATH Last Admin: 02/16/16 08:58 Dose: 1 amp Amlodipine Besylate (Norvasc -) 5 mg PO DAILY [facility] Last Admin: 02/16/16 11:04 Dose: 5 mg Atorvastatin Calcium (Lipitor -) 10 mg PO HS [facility] Last Admin: 02/15/16 21:28 Dose: 10 mg Furosemide (Lasix Injection -) 80 mg IVPUSH BID@0600,1400 [facility] Last Admin: 02/16/16 06:43 Dose: 80 mg Heparin Sodium (Porcine) (Heparin -) 1,000 unit IVPUSH PRN PRN PRN Reason: Heparin Heparin Sodium (Porcine) (Heparin -) 5,000 unit IVPUSH PRN PRN PRN Reason: Heparin Hydralazine HCl (Apresoline -) 100 mg PO TID [facility] Last Admin: 02/16/16 06:40 Dose: 100 mg Heparin Sodium (Porcine) 25, (000 unit/ Sodium Chloride) 500 mls @ 20 mls/hr IV TITR ANURADHA; 1,000 UNIT/HR PRN Reason: Protocol Last Admin: 02/16/16 00:47 Dose: 20 mls/hr Insulin Aspart (Novolog Vial) 4 units SQ TIDAC [facility] Last Admin: 02/16/16 06:44 Dose: Not Given Insulin Detemir (Levemir Vial) 28 units SQ HS [facility] Last Admin: 02/15/16 21:26 Dose: 28 unit Isosorbide Mononitrate (Imdur -) 60 mg PO BID [facility] Last Admin: 02/16/16 11:04 Dose: 60 mg Metoprolol Succinate 100 mg/ (Metoprolol Succinate 50 mg) 150 mg PO BID ANURADHA Last Admin: 02/16/16 11:03 Dose: 150 mg A/P 55 year old Gentleman with PMhx of CKD stage 4, CHF, Hypertension, DM, Intra- cranial hemorrhage, Obstructive sleep apnea who presented with complaints of sob and urinary retention with BUN/Cr of 41/2.9. #Worsening CKD in setting of CHF/DM Cr near the same values that he had been in 2016 Check bladder scan to r/o retention No overt uremia, electrolytes imbalance to warrant dialysis at this time continue IV diuretics as per Cardiology Trend BUN/Cr and electrolytes Dose all meds for Cr Cl ~25 avoid IV contrast, NSAIDS, Fleet enemas pt would benifit from DENISSE/ARB but will likely decrease GFR. Can attempt to start once off IV diuretics #Acute Systolic HF/Afib continue diuretics as per cardiology on Heparin gtt for A/C #Insulin dependent DM Check Hgb A1C continue insulin #Hypertension BP acceptable on Imdur, Metoprolol, amlodipine Thank you Will follow Steven Wyatt DO
[2016-02-16] MEDS: HEPARIN NA (PORCINE) 5,000 UNITS/ML 1ML VIAL IVPUSH PRN (14:41)
--- NOTE | 2016-02-16 19:07 | PN ---
Progress Note, Physician - Current Medication List Current Medications: Active Medications Acetaminophen (Tylenol -) 650 mg PO Q6H PRN PRN Reason: FEVER OR PAIN Albuterol/Ipratropium (Duoneb -) 1 amp NEB Q4H PRN PRN Reason: SHORTNESS OF BREATH Last Admin: 02/16/16 17:42 Dose: 1 amp Amlodipine Besylate (Norvasc -) 5 mg PO DAILY [facility] Last Admin: 02/16/16 11:04 Dose: 5 mg Atorvastatin Calcium (Lipitor -) 10 mg PO HS [facility] Last Admin: 02/15/16 21:28 Dose: 10 mg Furosemide (Lasix Injection -) 80 mg IVPUSH BID@0600,1400 [facility] Last Admin: 02/16/16 15:46 Dose: 80 mg Heparin Sodium (Porcine) (Heparin -) 1,000 unit IVPUSH PRN PRN PRN Reason: Heparin Heparin Sodium (Porcine) (Heparin -) 5,000 unit IVPUSH PRN PRN PRN Reason: Heparin Last Admin: 02/16/16 14:41 Dose: 5,000 unit Hydralazine HCl (Apresoline -) 100 mg PO TID [facility] Last Admin: 02/16/16 14:39 Dose: 100 mg Heparin Sodium (Porcine) 25, (000 unit/ Sodium Chloride) 500 mls @ 20 mls/hr IV TITR [facility]URADHA; 1,000 UNIT/HR PRN Reason: Protocol Last Admin: 02/16/16 14:40 Dose: 23 mls/hr Insulin Aspart (Novolog Vial) 4 units SQ TIDAC [facility] Last Admin: 02/16/16 18:47 Dose: Not Given Insulin Detemir (Levemir Vial) 28 units SQ HS [facility] Last Admin: 02/15/16 21:26 Dose: 28 unit Isosorbide Mononitrate (Imdur -) 60 mg PO BID [facility] Last Admin: 02/16/16 11:04 Dose: 60 mg Metoprolol Succinate 100 mg/ (Metoprolol Succinate 50 mg) 150 mg PO BID [facility] Last Admin: 02/16/16 11:03 Dose: 150 mg - Objective Vital Signs: Vital Signs Temperature 99.2 F 02/16/16 16:07 Pulse Rate 106 H 02/16/16 16:07 Respiratory Rate 20 02/16/16 16:07 Blood Pressure 130/82 02/16/16 16:07 O2 Sat by Pulse Oximetry (%) 94 L 02/16/16 11:03 Constitutional: Yes: No Distress HENT: Yes: Atraumatic Neck: Yes: Supple Cardiovascular: Yes: Regular Rate and Rhythm Respiratory: Yes: CTA Bilaterally Gastrointestinal: Yes: Normal Bowel Sounds Extremities: Yes: WNL Neurological: Yes: Alert, Oriented Labs: CBC, BMP 02/16/16 05:35 INR, PTT INR 1.47 (0.82-1.09) H 02/15/16 23:00 Problem List - Problems (1) CHF (congestive heart failure) Code(s): I50.9 - HEART FAILURE, UNSPECIFIED Qualifiers: Congestive heart failure type: unspecified congestive heart failure type Congestive heart failure chronicity: acute on chronic Qualified Code(s ): I50.9 - Heart failure, unspecified (2) Hyperlipemia Code(s): E78.5 - HYPERLIPIDEMIA, UNSPECIFIED (3) Uncontrolled diabetes mellitus Code(s): E11.65 - TYPE 2 DIABETES MELLITUS WITH HYPERGLYCEMIA (5) Acute on chronic renal failure Code(s): N17.9 - ACUTE KIDNEY FAILURE, UNSPECIFIED N18.9 - CHRONIC KIDNEY DISEASE, UNSPECIFIED Assessment/Plan 1.chf on diuretics and cardiac meds 2.uncontrolled dm on insulin will check hgba1c 3.afib on iv heparin 4.ckd monitor renal function 5.htn 6.morbid obesity [place] on bipap at night dvt ppx
[2016-02-16] MEDS: ATORVASTATIN CA 10 MG TABLET (FP) PO SCH (21:58)
[2016-02-16] MEDS: INSULIN DETEMIR 100 UNITS/ML MDV SQ SCH (21:58)
[2016-02-17] MEDS: ALBUTEROL SO4 2.5/IPRATROPIUM 0.5 INH SOL 3 ML VIAL.NEB. NEB PRN (00:42)
[2016-02-17] MEDS ORDERED: DEXTROSE 50%-WATER 50 ML VIAL IVPUSH ONE (02:00)
[2016-02-17] MEDS ORDERED: ALBUTEROL SO4 0.083% IH SOL 2.5 MG/3 ML VIAL.NEB. NEB ONE (02:01)
--- NOTE | 2016-02-17 02:07 | HOSP ---
Addendum entered and electronically signed by India Brown RES 02/17/16 06: 10: patient feels better after after lasix Addendum entered and electronically signed by India Brown RES 02/17/16 03: 18: upon reassessing patient, glucose 130 but symptoms persist. will order trop, abg , cxr and lasix 40 iv as well a s bipap. this may be CHF exaerbation fluid overload complication Original Note: Subjective - Review of Symptoms Events since last encounter: patient lethargic and diaphoretic Subjective: pateint foind to be lethargic and diaphoretic, not complaining of any sob, cough , chest pain, palpitations,, h/a, abd pain, n/v, dizziness. afebrile and hemodynamically stable. O2 sat 998% on supplemental o2 2L. RRR, no evente on tele aside from baseline sinus tach and occasional PVC. EKG obtained no change from baseline. fingerstick glucose 60. apaprently patient given 10 U a few hours ago for glucose >400. gave him 2 cups of juice with sugar, repeat glucose 63, symptoms remain. will give 1 amp D50. General: Yes: Fatigue HEENT: No: Head Aches, Visual Changes Pulmonary: No: Dyspnea, Cough, Pleuritic Chest Pain Cardiovascular: No: Chest Pain, Palpitations, Light Headedness Gastrointestinal: No: Nausea, Vomiting, Abdominal Pain, Diarrhea, Constipation Musculoskeletal: No: Back Pain Neurological: No: Weakness, Numbness, Confusion Physical Examination Vital Signs: Vital Signs Temperature 98.5 F 02/16/16 21:00 Pulse Rate 107 H 02/16/16 21:00 Respiratory Rate 18 02/16/16 21:00 Blood Pressure 120/84 02/16/16 21:00 O2 Sat by Pulse Oximetry (%) 96 02/16/16 22:00 Constitutional: Yes: Calm, Diaphoresis, Obese Eyes: Yes: PERRL HENT: Yes: Atraumatic, Normocephalic Neck: Yes: Supple Cardiovascular: Yes: Tachycardia, S1, S2, Other (regular rythm) Respiratory: Yes: Rhonchi (diffuse) Gastrointestinal: Yes: Normal Bowel Sounds, Soft, Abdomen, Obese Labs: CBC, BMP 02/16/16 05:35 Hospitalist Encounter Assessment: lethargy and diaphoresis -likely due to hypoglycemia gluc=63; prior gluc >400 -ekg unchanged from prior -no acute events on TELE -i amp d50 -albuterol neb stat -supplemental O2 venturi mask Visit type - Emergency Visit Emergency Visit: No - New Patient This patient is new to me today: Yes Date on this admission: 02/17/16 - Critical Care Critical Care patient: No
[2016-02-17] MEDS ORDERED: FUROSEMIDE 40 MG/4 ML INJECTABLE VIAL IVPUSH ONE ×2 (03:03→03:05)
[2016-02-17 03:17] LABS: ARTERIAL BLOOD GAS BASE EXCESS -1.7 meq/l (-2-2); ARTERIAL BLOOD GAS HCO3 25.7 meq/L (22-26); ARTERIAL BLOOD GAS pH 7.28 (7.35-7.45)
--- NOTE | 2016-02-17 03:17 | HOSP ---
Subjective - Review of Symptoms Subjective: Pt. seen at bedside for shortness of breath and diaphoresis Physical: VS: Vital Signs Period Temp Pulse Resp BP Sys/Perez Pulse Ox Last 24 Hr 98.0 F-99.2 F 101-120 18-20 104-150/68-98 94-96 GEN: Mild distress CARD: IRRR S1, S2 RESP: Coarse Bilateral Crackles all Kelly ABD: BSX4 EXT: +3 Pitting Edema, erythmatous, bilateral and equal in size A/P.) Acute systolic Congestive Heart Failure Exacerbation - Lasix 40 Stat - BIPAP - ABG - Repeat CXR - Troponin/ EKG- Reviewed prolonged QtC 523 - Will Monitor closely for respiratory changes Physical Examination Vital Signs: Vital Signs Temperature 98.5 F 02/16/16 21:00 Pulse Rate 107 H 02/16/16 21:00 Respiratory Rate 18 02/16/16 21:00 Blood Pressure 120/84 02/16/16 21:00 O2 Sat by Pulse Oximetry (%) 96 02/16/16 22:00 Labs: CBC, BMP 02/16/16 05:35
[2016-02-17 03:19] LABS: ALLENS TEST POSITIVE; ART PUNCT SITE RIGHT RADIAL; LPM/O2% 100%; PT. ON O2? YES; TYPE OF O2 NON REBREATHER
[2016-02-17 03:20] LABS: ARTERIAL BLD GAS O2 SATURATION 99.7 % (90-98.9)
[2016-02-17] MEDS: hydrALAZINE HCL 50 MG TABLET (FP) PO SCH ×4 (06:26→22:07)
[2016-02-17] MEDS: FUROSEMIDE 40 MG/4 ML INJECTABLE VIAL IVPUSH SCH ×2 (06:27→14:52)
[2016-02-17] MEDS: INSULIN (NOVOLOG) ASPART 100 UNITS/ML 10ML VIAL SQ SCH ×3 (06:28→17:26)
[2016-02-17 07:39] LABS: BASOPHIL 0.6 % (0-2.0); MCH 27.7 pg (25.7-33.7); MCHC 31.3 g/dl (32.0-35.9); MEAN CELL VOLUME 88.4 fl (80-96); MEAN PLT VOLUME 7.8 fl (7.5-11.1); NEUTROPHILS 78.2 % (42.8-82.8); PLATELET COUNT 208 K/MM3 (134-434); RDW 17.7 % (11.9-15.9); WHITE BLOOD COUNT 7.9 K/mm3 (4.0-10.0)
[2016-02-17 08:20] LABS: ALBUMIN 2.5 g/dl (3.4-5.0); BILIRUBIN,TOTAL 0.8 mg/dL (0.2-1.0); CALCIUM 7.4 mg/dL (8.5-10.1); CREATININE 2.8 mg/dL (0.7-1.3); MAGNESIUM 2.1 mg/dL (1.8-2.4); PHOSPHOROUS 4.9 mg/dL (2.5-4.9); TOT PROT 6.8 g/dl (6.4-8.2)
[2016-02-17 08:23] LABS: TROPONIN I 0.09 ng/ml (0.00-0.05)
[2016-02-17] MEDS ORDERED: METOPROLOL SUCCINATE 50 MG TAB.SR.24H (FP) ONE ×2 (09:01→21:56)
[2016-02-17] MEDS ORDERED: METOPROLOL SUCCINATE 100 MG TAB.SR.24H (FP) PO ONE ×2 (09:01→21:56)
--- NOTE | 2016-02-17 10:05 | PN ---
Progress Note (short form) - Note Progress Note: s: overnight had sob, improved after iv lasix, this AM feeling better, mild sob. no cp palps dizzy o: Vital Signs Period Temp Pulse Resp BP Sys/Perez Pulse Ox Last 24 Hr 98.0 F-99.2 F 100-120 18-24 120-150/70-84 94-98 Constitutional: Yes: No Distress, Obese Eyes: No: Sclera Icterus Respiratory: Yes: bibasilar rales. No: Accessory Muscle Use Gastrointestinal: Yes: Normal Bowel Sounds. obese No: Distention, Hepatomegaly, Palpable Mass, tenderness Cardiovascular: Yes: Irregular Rate and Rhythm JVD: tds Heart Sounds: Yes: nl, S1, S2. No: Gallop Murmur: No: Systolic Murmur, Diastolic Murmur Extremities: erythema and skin excoriations Edema: trace LE, erythema and edema Integumentary: No: Jaundice diaphoresis Neurological: Yes: Alert, Oriented (x3) Psychiatric: No: Agitated Current Medications Generic Name Dose Route Start Last Admin Trade Name Freq PRN Reason Stop Dose Admin Acetaminophen 650 mg 02/15/16 02:20 Tylenol - PO Q6H PRN FEVER OR PAIN Albuterol/Ipratropium 1 amp 02/15/16 02:22 02/17/16 00:42 Duoneb - NEB 1 amp Q4H PRN Administration SHORTNESS OF BREATH Amlodipine Besylate 5 mg 02/15/16 10:00 02/16/16 11:04 Norvasc - PO 5 mg DAILY [facility] Administration Atorvastatin Calcium 10 mg 02/15/16 22:00 02/16/16 21:58 Lipitor - PO 10 mg HS [facility] Administration Furosemide 80 mg 02/15/16 14:00 02/17/16 06:27 Lasix Injection - IVPUSH 40 mg BID@0600,1400 [facility] Administration Heparin Sodium (Porcine) 1,000 unit 02/15/16 18:13 Heparin - IVPUSH PRN PRN Heparin Heparin Sodium (Porcine) 5,000 unit 02/15/16 18:13 02/16/16 14:41 Heparin - IVPUSH 5,000 unit PRN PRN Administration Heparin Hydralazine HCl 100 mg 02/15/16 06:00 02/17/16 06:51 Apresoline - PO 100 mg TID [facility] Administration Heparin Sodium (Porcine) 25, 500 mls @ 20 mls/hr 02/15/16 18:15 02/16/16 14:40 000 unit/ Sodium Chloride IV 23 mls/hr TITR [facility]UR[facility] Administration Protocol 1,000 UNIT/HR Insulin Aspart 4 units 02/15/16 07:00 02/17/16 06:28 Novolog Vial SQ Not Given TIDAC [facility] Insulin Detemir 28 units 02/15/16 22:00 02/16/16 21:58 Levemir Vial SQ 28 unit HS [facility] Administration Isosorbide Mononitrate 60 mg 02/15/16 10:00 02/16/16 21:57 Imdur - PO 60 mg BID [facility] Administration Metoprolol Succinate 100 mg/ 150 mg 02/15/16 10:00 02/16/16 21:57 Metoprolol Succinate 50 mg PO 150 mg BID [facility] Administration CBC, BMP 02/17/16 05:35 02/17/16 05:35 tele: afib, HR controlled CXR: Mild bilateral increased interstitial lung markings, limited evaluation of left lung base (underexposure). Echo 10/2015: Moderately decreased LV function (global). Nl RV size/fn. 1+ MR. mild-mod TR. mild ao dilation. Trivial effusion. echo 02/2016: tds; mod-sev dec lvef, global hk, nl rv, mod kortney, mild-mod tr, rvsp 30-40, ao root 4.5 cm cath 06/2013: 60-70 rpl1, 80-90 d1, subtotal om1 MIBI 08/2014 (pers): no STs; no ischemia seen; predominantly fixed medium-sized inferior/basal inferolat/apico-inferior defect c/w diaphragm attenuation; EF 46% a/p: 55 yo with h/o afib with prior ?embolic CVA 05/2014 ([facility]) right visual field cut, syncope 09/19 with ICH at that time vs other entity on MRI and recurrent syncope 12/2015 (unclear etiology), Non-ischemic cardiomyopathy dx 2013 at [facility], HTN, HPL, Rt carotid stenosis, IDDM, RLE cellulitis s/p debridement, MSSA bacteremia 10/2015, DAMIAN not on home cpap, ckd, who presents with sob/RVR. acute systolic HF exacerbation, NICM - Last d/c weight 355 lbs and discharged on torsemide 60 qd. Here with vol overload again, in past was diuresed with IV lasix 80 iv bid, cont same for now , cr stable, sob better. Overnight had sob that resolved with additional iv lasix. No signs acs and cxr w/o sig chf now. - Exacerbation may be related to RVR on presentation. - Daily standing weights, strict i/o's and daily bmp. - cont home LV dysfxn regimen: bb, imdur/hydralazine (not on kaylan/arb 2/2 ckd) - worsened dizziness, ? poor cardiac output vs. uncontrolled weights vs. orthostasis. Reevaluate symptoms with diuresis and improved heart rate control. 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 Contrast enhancing lesion seen 06/19 and the prior heme on MRI were in same location and was thought to be most likely 2/2 post CVA hemorrhagic conversion (i.e. without hi risk for recurrent ICH). Less likely low-grade glioma, which would have very low risk of bleeding if AC resumed--hence the recs at that time were for usual AC considerations for his afib, no special precautions (pt failed repeatedly to f/u with neuro as outpatient, and then worsening renal fxn made him hi risk for morena when here last time). -warfarin changed to eliquis on past admits due to pt's repeated refusal to f/u with cardiology or have reliable INRs and make rec'd coumadin dose change, with worrisome CHADS-VASC 6 = estimated risk 9-10%/year, and hence concern he will stroke again on warfarin. - Now, however, with worsened renal function. Would cont heparin drip until renal function stabilizes back to his baseline. - Con't home regimen toprol 150 mg bid, rate controlled on tele. cad: -managed medically, no angina/ACS/ischemia since -Here with borderline elevation in troponin, flat trend, likely not acs, instead due to HF exacerbation and gilles/CKD. - continue home statin, bb, imdur, hydralazine - Con't to defer ASA as pt with stable CAD in past and also on AC (and ? incr'd risk for ICH) R carotid stenosis: -ADRIENNE with PSV in high 200s cm/sec here, suspicious for >70% stenosis per radiology report -vascular surgery c/s on prior admit felt stenosis is at MOST 70% (deferred further imaging with contrast due to low GFR). Recommended deferring CEA unless imaging suggested >80% stenosis, or if he developed symptoms/acute cerebrovascular event. Syncope, ? CVA/TIA (recurrent) - Previously pt had episodes of orthostatic hypotension sec to bp meds and diuretics. - similar symptoms at time of possible hemorrhagic CVA in 2014 (collapsed at home then), see discussion below. - had transient neurologic symptoms (speech disturbance) in 12/2015 but not thought to have had TIA per neuro. - Now with recurrent dizziness, but without neurologic symptoms/deficits. Con' t to monitor. CKD: - prior baseline creat ranged 1.5-2.2. s/p GILLES 10/21--went home with creat 2.8 and in 12/2015 creatine stable around 2.5-2.6, possible new baseline. - monitor with diuresis htn: - h/o recurrent orthostatic hypotension symptoms and falls at home had complicated aggressive tx targets in the past. - cont home regimen amlodipine 5 mg/day, Hydralazine 100 mg PO TID, Isosorbide Mononitrate 60 mg PO BID, Metoprolol Succinate 150 mg PO BID and monitor. thoracic aorta aneurysm: - mod dilated aortic root, chronic finding - cont BB, bp control as doing morbid obesity, ? DAMIAN: -suspected DAMIAN, positive study in past but he has refused f/u or tx.
[2016-02-17] MEDS: HEPARIN NA (PORCINE) 5,000 UNITS/ML 1ML VIAL IVPUSH PRN ×3 (10:27→22:31)
[2016-02-17] MEDS: METOPROLOL SUCCINATE 100 MG, METOPROLOL SUCCINATE 50 MG PO SCH ×2 (10:28→22:08)
[2016-02-17] MEDS: amLODIPine BESYLATE 5 MG TABLET (FP) PO SCH (10:28)
[2016-02-17] MEDS: ISOSORBIDE MONONITRATE 60 MG TAB.SR.24H (FP) PO SCH ×2 (10:28→22:08)
[2016-02-17] MEDS: HEPARIN - 25,000 UNIT in SODIUM CHLORIDE 495 ML IV SCH ×3 (10:29→22:29)
--- NOTE | 2016-02-17 16:36 | EKG ---
Test Reason : Blood Pressure : / mmHG Vent. Rate : 100 BPM Atrial Rate : 111 BPM P-R Int : 000 ms QRS Dur : 106 ms QT Int : 406 ms P-R-T Axes : 000 159 155 degrees QTc Int : 523 ms ATRIAL FIBRILLATION WITH PREMATURE VENTRICULAR OR ABERRANTLY CONDUCTED COMPLEXES RIGHT AXIS DEVIATION PROLONGED QT ABNORMAL ECG WHEN COMPARED WITH ECG OF 14-FEB-2016 22:06, NO SIGNIFICANT CHANGE WAS FOUND Confirmed by BETH RUIZ MD ([id number]) on 02/17/2016 4:35:53 PM Referred By: Confirmed By:BETH RUIZ MD
--- NOTE | 2016-02-17 18:14 | PN ---
Progress Note (short form) - Note Progress Note: Renal Follow up for CKD/Volume Overload Pt seen and examined at the bedside overnight events noted pt reports shortness of breath is improved no chest pain good urine output Vital Signs Temperature 98.0 F 02/17/16 17:00 Pulse Rate 98 H 02/17/16 17:00 Respiratory Rate 18 02/17/16 17:00 Blood Pressure 127/84 02/17/16 17:00 O2 Sat by Pulse Oximetry (%) 96 02/17/16 09:00 Intake & Output 02/14/16 02/15/16 02/16/16 02/17/16 23:59 23:59 23:59 23:59 Intake Total 950 840 Output Total 300 500 800 Balance 650 340 -800 Weight 420 lb 384 lb 5 oz 383 lb 12.8 oz Gen: NAD, on NC. Awake and alert HEENT: NC/AT, MMM, No JVD CVS: RRR, No M/R Lungs: CTA, no rales or wheeze Abd: Soft NT/ND Ext: 2+ edema in LE, + erythema. No tenderness : No overt bladder distension Neuro: AAOx3, no focal defects CBC, BMP 02/17/16 05:35 02/17/16 05:35 Laboratory Tests 02/17/16 02/17/16 02/17/16 05:35 12:30 12:30 Calcium 7.4 L Phosphorus 4.9 Magnesium 2.1 Albumin 2.5 L U Random Total Protein Ur Random Sodium 72 Ur Random Urea Nitrogn Urine Creatinine 27.4 02/17/16 02/17/16 12:30 12:30 Calcium Phosphorus Magnesium Albumin U Random Total Protein 97 H Ur Random Sodium Ur Random Urea Nitrogn 292 Urine Creatinine Current Medications Acetaminophen (Tylenol -) 650 mg PO Q6H PRN PRN Reason: FEVER OR PAIN Albuterol/Ipratropium (Duoneb -) 1 amp NEB Q4H PRN PRN Reason: SHORTNESS OF BREATH Last Admin: 02/17/16 00:42 Dose: 1 amp Amlodipine Besylate (Norvasc -) 5 mg PO DAILY [facility] Last Admin: 02/17/16 10:28 Dose: 5 mg Atorvastatin Calcium (Lipitor -) 10 mg PO HS [facility] Last Admin: 02/16/16 21:58 Dose: 10 mg Furosemide (Lasix Injection -) 80 mg IVPUSH BID@0600,1400 [facility] Last Admin: 02/17/16 14:52 Dose: 80 mg Heparin Sodium (Porcine) (Heparin -) 1,000 unit IVPUSH PRN PRN PRN Reason: Heparin Last Admin: 02/17/16 16:49 Dose: 1,000 unit Heparin Sodium (Porcine) (Heparin -) 5,000 unit IVPUSH PRN PRN PRN Reason: Heparin Last Admin: 02/16/16 14:41 Dose: 5,000 unit Hydralazine HCl (Apresoline -) 100 mg PO TID [facility] Last Admin: 02/17/16 14:52 Dose: 100 mg Heparin Sodium (Porcine) 25, (000 unit/ Sodium Chloride) 500 mls @ 20 mls/hr IV TITR ANURADHA; 1,000 UNIT/HR PRN Reason: Protocol Last Admin: 02/17/16 16:50 Dose: 27 mls/hr Insulin Aspart (Novolog Vial) 4 units SQ TIDAC [facility] Last Admin: 02/17/16 17:26 Dose: 4 units Insulin Detemir (Levemir Vial) 28 units SQ HS [facility] Last Admin: 02/16/16 21:58 Dose: 28 unit Isosorbide Mononitrate (Imdur -) 60 mg PO BID [facility] Last Admin: 02/17/16 10:28 Dose: 60 mg Metoprolol Succinate 100 mg/ (Metoprolol Succinate 50 mg) 150 mg PO BID [facility] Last Admin: 02/17/16 10:28 Dose: 150 mg A/P 55 year old Gentleman with PMhx of CKD stage 4, CHF, Hypertension, DM, Intra- cranial hemorrhage, Obstructive sleep apnea who presented with complaints of sob and urinary retention with BUN/Cr of 41/2.9. #Worsening CKD in setting of CHF/DM Renal function stable at this time UA with 2+ protein, UPCR is 3.5 Proteinuria likey from DM but will check SPEP/UPEP, ANNETTA Renal US pending Agree with continue Lasix IV BID Trend daily weights, BUN/Cr, electrolytes #Acute Systolic HF/Afib continue diuretics as per cardiology on Heparin gtt for A/C #Insulin dependent DM Check Hgb A1C continue insulin #Hypertension BP acceptable on Imdur, Metoprolol, amlodipine Thank you Will follow Steven Wyatt DO
--- NOTE | 2016-02-17 19:43 | PN ---
Progress Note, Physician History of Present Illness: stable last night events noted - Current Medication List Current Medications: Active Medications Acetaminophen (Tylenol -) 650 mg PO Q6H PRN PRN Reason: FEVER OR PAIN Albuterol/Ipratropium (Duoneb -) 1 amp NEB Q4H PRN PRN Reason: SHORTNESS OF BREATH Last Admin: 02/17/16 00:42 Dose: 1 amp Amlodipine Besylate (Norvasc -) 5 mg PO DAILY [facility] Last Admin: 02/17/16 10:28 Dose: 5 mg Atorvastatin Calcium (Lipitor -) 10 mg PO HS [facility] Last Admin: 02/16/16 21:58 Dose: 10 mg Furosemide (Lasix Injection -) 80 mg IVPUSH BID@0600,1400 [facility] Last Admin: 02/17/16 14:52 Dose: 80 mg Heparin Sodium (Porcine) (Heparin -) 1,000 unit IVPUSH PRN PRN PRN Reason: Heparin Last Admin: 02/17/16 16:49 Dose: 1,000 unit Heparin Sodium (Porcine) (Heparin -) 5,000 unit IVPUSH PRN PRN PRN Reason: Heparin Last Admin: 02/16/16 14:41 Dose: 5,000 unit Hydralazine HCl (Apresoline -) 100 mg PO TID [facility] Last Admin: 02/17/16 14:52 Dose: 100 mg Heparin Sodium (Porcine) 25, (000 unit/ Sodium Chloride) 500 mls @ 20 mls/hr IV TITR ANURADHA; 1,000 UNIT/HR PRN Reason: Protocol Last Admin: 02/17/16 16:50 Dose: 27 mls/hr Insulin Aspart (Novolog Vial) 4 units SQ TIDAC [facility] Last Admin: 02/17/16 17:26 Dose: 4 units Insulin Detemir (Levemir Vial) 28 units SQ HS [facility] Last Admin: 02/16/16 21:58 Dose: 28 unit Isosorbide Mononitrate (Imdur -) 60 mg PO BID [facility] Last Admin: 02/17/16 10:28 Dose: 60 mg Metoprolol Succinate 100 mg/ (Metoprolol Succinate 50 mg) 150 mg PO BID [facility] Last Admin: 02/17/16 10:28 Dose: 150 mg - Objective Vital Signs: Vital Signs Temperature 97.9 F 02/17/16 15:19 Pulse Rate 98 H 02/17/16 15:19 Respiratory Rate 22 02/17/16 15:19 Blood Pressure 143/84 02/17/16 15:19 O2 Sat by Pulse Oximetry (%) 96 02/17/16 09:00 Constitutional: Yes: No Distress HENT: Yes: Atraumatic Neck: Yes: Supple Cardiovascular: Yes: Regular Rate and Rhythm Respiratory: Yes: CTA Bilaterally Gastrointestinal: Yes: Normal Bowel Sounds Extremities: Yes: WNL Neurological: Yes: Alert, Oriented Labs: CBC, BMP 02/17/16 05:35 02/17/16 05:35 INR, PTT INR 1.47 (0.82-1.09) H 02/15/16 23:00 Problem List - Problems (1) CHF (congestive heart failure) Code(s): I50.9 - HEART FAILURE, UNSPECIFIED Qualifiers: Congestive heart failure type: unspecified congestive heart failure type Congestive heart failure chronicity: acute on chronic Qualified Code(s ): I50.9 - Heart failure, unspecified (2) Hyperlipemia Code(s): E78.5 - HYPERLIPIDEMIA, UNSPECIFIED (3) Uncontrolled diabetes mellitus Code(s): E11.65 - TYPE 2 DIABETES MELLITUS WITH HYPERGLYCEMIA (5) Acute on chronic renal failure Code(s): N17.9 - ACUTE KIDNEY FAILURE, UNSPECIFIED N18.9 - CHRONIC KIDNEY DISEASE, UNSPECIFIED Assessment/Plan 1.chf on diuretics and cardiac meds 2.uncontrolled dm on insulin will check hgba1c 3.afib on iv heparin 4.ckd monitor renal function 5.htn 6.morbid obesity [place] on bipap at night sob resolved, pt clinically better
[2016-02-17] MEDS: ATORVASTATIN CA 10 MG TABLET (FP) PO SCH (22:08)
[2016-02-17] MEDS: INSULIN DETEMIR 100 UNITS/ML MDV SQ SCH (22:08)
[2016-02-18] MEDS: INSULIN (NOVOLOG) ASPART 100 UNITS/ML 10ML VIAL SQ SCH ×3 (06:26→17:32)
[2016-02-18] MEDS: FUROSEMIDE 40 MG/4 ML INJECTABLE VIAL IVPUSH SCH ×2 (06:33→13:45)
[2016-02-18] MEDS: hydrALAZINE HCL 50 MG TABLET (FP) PO SCH ×3 (06:33→22:20)
[2016-02-18 07:05] LABS: BASOPHIL 0.4 % (0-2.0); EOSINOPHIL 1.2 % (0-4.5); MCH 28.4 pg (25.7-33.7); MCHC 32.5 g/dl (32.0-35.9); MEAN CELL VOLUME 87.6 fl (80-96); MEAN PLT VOLUME 8.3 fl (7.5-11.1); NEUTROPHILS 65.9 % (42.8-82.8); PLATELET COUNT 203 K/MM3 (134-434); RDW 17.2 % (11.9-15.9); WHITE BLOOD COUNT 8.1 K/mm3 (4.0-10.0)
[2016-02-18 07:20] LABS: ALBUMIN 2.5 g/dl (3.4-5.0); CALCIUM 7.5 mg/dL (8.5-10.1); CREATININE 2.9 mg/dL (0.7-1.3)
[2016-02-18 07:22] LABS: BILIRUBIN,TOTAL 0.7 mg/dL (0.2-1.0); TOT PROT 6.5 g/dl (6.4-8.2)
[2016-02-18 09:05] LABS: MAGNESIUM 2.1 mg/dL (1.8-2.4); PHOSPHOROUS 4.5 mg/dL (2.5-4.9)
[2016-02-18] MEDS ORDERED: METOPROLOL SUCCINATE 50 MG TAB.SR.24H (FP) ONE ×2 (09:53→22:16)
[2016-02-18] MEDS ORDERED: METOPROLOL SUCCINATE 100 MG TAB.SR.24H (FP) PO ONE ×2 (09:53→22:16)
[2016-02-18] MEDS: ISOSORBIDE MONONITRATE 60 MG TAB.SR.24H (FP) PO SCH ×2 (10:02→22:20)
[2016-02-18] MEDS: METOPROLOL SUCCINATE 100 MG, METOPROLOL SUCCINATE 50 MG PO SCH ×2 (10:02→22:20)
[2016-02-18] MEDS: HEPARIN - 25,000 UNIT in SODIUM CHLORIDE 495 ML IV SCH (10:03)
[2016-02-18] MEDS: amLODIPine BESYLATE 5 MG TABLET (FP) PO SCH (10:03)
[2016-02-18] MEDS: ALBUTEROL SO4 2.5/IPRATROPIUM 0.5 INH SOL 3 ML VIAL.NEB. NEB PRN ×2 (10:45→22:05)
--- NOTE | 2016-02-18 11:28 | PN ---
Progress Note (short form) - Note Progress Note: s: mild sob but improving. no cp palps dizzy o: Vital Signs Period Temp Pulse Resp BP Sys/Perez Pulse Ox Last 24 Hr 97.4 F-98.0 F 68-98 18-22 104-153/49-84 96-98 Constitutional: Yes: No Distress, Obese Eyes: No: Sclera Icterus Respiratory: Yes: bibasilar rales. No: Accessory Muscle Use Gastrointestinal: Yes: Normal Bowel Sounds. obese No: Distention, Hepatomegaly, Palpable Mass, tenderness Cardiovascular: Yes: Irregular Rate and Rhythm JVD: tds Heart Sounds: Yes: nl, S1, S2. No: Gallop Murmur: No: Systolic Murmur, Diastolic Murmur Extremities: erythema and skin excoriations Edema: trace LE, erythema and edema Integumentary: No: Jaundice diaphoresis Neurological: Yes: Alert, Oriented (x3) Psychiatric: No: Agitated Current Medications Generic Name Dose Route Start Last Admin Trade Name Freq PRN Reason Stop Dose Admin Acetaminophen 650 mg 02/15/16 02:20 Tylenol - PO Q6H PRN FEVER OR PAIN Albuterol/Ipratropium 1 amp 02/15/16 02:22 02/17/16 00:42 Duoneb - NEB 1 amp Q4H PRN Administration SHORTNESS OF BREATH Amlodipine Besylate 5 mg 02/15/16 10:00 02/18/16 10:03 Norvasc - PO 5 mg DAILY ANURADHA Administration Apixaban 5 mg 02/18/16 11:30 Eliquis - PO BID ANURADHA Atorvastatin Calcium 10 mg 02/15/16 22:00 02/17/16 22:08 Lipitor - PO 10 mg HS ANURADHA Administration Furosemide 80 mg 02/15/16 14:00 02/18/16 06:33 Lasix Injection - IVPUSH 80 mg BID@0600,1400 ANURADHA Administration Hydralazine HCl 100 mg 02/15/16 06:00 02/18/16 06:33 Apresoline - PO 100 mg TID ANURADHA Administration Insulin Aspart 4 units 02/15/16 07:00 02/18/16 06:26 Novolog Vial SQ Not Given TIDAC ANURADHA Insulin Detemir 28 units 02/15/16 22:00 02/17/16 22:08 Levemir Vial SQ Not Given HS ANURADHA Isosorbide Mononitrate 60 mg 02/15/16 10:00 02/18/16 10:02 Imdur - PO 60 mg BID ANURADHA Administration Metoprolol Succinate 100 mg/ 150 mg 02/15/16 10:00 02/18/16 10:02 Metoprolol Succinate 50 mg PO 150 mg BID ANURADHA Administration CBC, BMP 02/18/16 05:35 02/18/16 05:35 tele: afib, HR controlled, nsvt 5 beats CXR: Mild bilateral increased interstitial lung markings, limited evaluation of left lung base (underexposure). Echo 10/2015: Moderately decreased LV function (global). Nl RV size/fn. 1+ MR. mild-mod TR. mild ao dilation. Trivial effusion. echo 02/2016: tds; mod-sev dec lvef, global hk, nl rv, mod kortney, mild-mod tr, rvsp 30-40, ao root 4.5 cm cath 06/2013: 60-70 rpl1, 80-90 d1, subtotal om1 MIBI 08/2014 (pers): no STs; no ischemia seen; predominantly fixed medium-sized inferior/basal inferolat/apico-inferior defect c/w diaphragm attenuation; EF 46% a/p: 55 yo with h/o afib with prior ?embolic CVA 05/2014 ([facility]) right visual field cut, syncope 09/19 with ICH at that time vs other entity on MRI and recurrent syncope 12/2015 (unclear etiology), Non-ischemic cardiomyopathy dx 2013 at [facility], HTN, HPL, Rt carotid stenosis, IDDM, RLE cellulitis s/p debridement, MSSA bacteremia 10/2015, DAMIAN not on home cpap, ckd, who presents with sob/RVR. acute systolic HF exacerbation, NICM - Last d/c weight 355 lbs and discharged on torsemide 60 qd. Here with vol overload again on IV lasix 80 iv bid, cont same for now, cr stable, sob improving - now that cr stable will dc hep gtt and change back to home eliquis to avoid excess ivfs while diuresing - Daily standing weights, strict i/o's and daily bmp. 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 Contrast enhancing lesion seen 06/19 and the prior heme on MRI were in same location and was thought to be most likely 2/2 post CVA hemorrhagic conversion (i.e. without hi risk for recurrent ICH). Less likely low-grade glioma, which would have very low risk of bleeding if AC resumed--hence the recs at that time were for usual AC considerations for his afib, no special precautions (pt failed repeatedly to f/u with neuro as outpatient, and then worsening renal fxn made him hi risk for morena when here last time). -warfarin changed to eliquis on past admits due to pt's repeated refusal to f/u with cardiology or have reliable INRs and make rec'd coumadin dose change, with worrisome CHADS-VASC 6 = estimated risk 9-10%/year, and hence concern he will stroke again on warfarin. - now that cr stable will dc hep gtt and change back to home eliquis to avoid excess ivfs while diuresing - Con't home regimen toprol 150 mg bid, rate controlled on tele. cad: -managed medically, no angina/ACS/ischemia since -Here with borderline elevation in troponin, flat trend, likely not acs, instead due to HF exacerbation and gilles/CKD. - continue home statin, bb, imdur, hydralazine - Con't to defer ASA as pt with stable CAD in past and also on AC (and ? incr'd risk for ICH) R carotid stenosis: -ADRIENNE with PSV in high 200s cm/sec here, suspicious for >70% stenosis per radiology report -vascular surgery c/s on prior admit felt stenosis is at MOST 70% (deferred further imaging with contrast due to low GFR). Recommended deferring CEA unless imaging suggested >80% stenosis, or if he developed symptoms/acute cerebrovascular event. Syncope, ? CVA/TIA (recurrent) - Previously pt had episodes of orthostatic hypotension sec to bp meds and diuretics. - similar symptoms at time of possible hemorrhagic CVA in 2014 (collapsed at home then), see discussion below. - had transient neurologic symptoms (speech disturbance) in 12/2015 but not thought to have had TIA per neuro. - Now with recurrent dizziness, but without neurologic symptoms/deficits. Con' t to monitor. CKD: - prior baseline creat ranged 1.5-2.2. s/p GILLES 10/21--went home with creat 2.8 and in 12/2015 creatine stable around 2.5-2.6, possible new baseline. - monitor with diuresis htn: - h/o recurrent orthostatic hypotension symptoms and falls at home had complicated aggressive tx targets in the past. - cont home regimen amlodipine 5 mg/day, Hydralazine 100 mg PO TID, Isosorbide Mononitrate 60 mg PO BID, Metoprolol Succinate 150 mg PO BID and monitor. thoracic aorta aneurysm: - mod dilated aortic root, chronic finding - cont BB, bp control as doing morbid obesity, ? DAMIAN: -suspected DAMIAN, positive study in past but he has refused f/u or tx.
[2016-02-18] MEDS: APIXABAN 5 MG TABLET PO SCH ×2 (11:54→22:20)
--- NOTE | 2016-02-18 12:23 | PN ---
Progress Note (short form) - Note Progress Note: Renal Follow up for CKD/Volume Overload Pt seen and examined at the bedside says he feels better today had mild sob no chest pain LE swelling feels better Vital Signs Temperature 98 F 02/18/16 09:00 Pulse Rate 92 H 02/18/16 10:20 Respiratory Rate 18 02/18/16 09:00 Blood Pressure 104/52 02/18/16 09:00 O2 Sat by Pulse Oximetry (%) 98 02/18/16 10:20 Intake & Output 02/15/16 02/16/16 02/17/16 02/18/16 23:59 23:59 23:59 23:59 Intake Total 950 840 600 620 Output Total 598 610 4001 Balance 650 340 -600 620 Weight 384 lb 5 oz 383 lb 12.8 oz 383 lb 9.6 oz Gen: NAD, on NC. Awake and alert CVS: RRR, No M/R Lungs: CTA, no rales or wheeze Abd: Soft NT/ND Ext: 2+ edema in LE, + erythema. No tenderness CBC, BMP 02/18/16 05:35 02/18/16 05:35 Current Medications Acetaminophen (Tylenol -) 650 mg PO Q6H PRN PRN Reason: FEVER OR PAIN Albuterol/Ipratropium (Duoneb -) 1 amp NEB Q4H PRN PRN Reason: SHORTNESS OF BREATH Last Admin: 02/17/16 00:42 Dose: 1 amp Amlodipine Besylate (Norvasc -) 5 mg PO DAILY [facility] Last Admin: 02/18/16 10:03 Dose: 5 mg Apixaban (Eliquis -) 5 mg PO BID [facility] Last Admin: 02/18/16 11:54 Dose: 5 mg Atorvastatin Calcium (Lipitor -) 10 mg PO HS [facility] Last Admin: 02/17/16 22:08 Dose: 10 mg Furosemide (Lasix Injection -) 80 mg IVPUSH BID@0600,1400 [facility] Last Admin: 02/18/16 06:33 Dose: 80 mg Hydralazine HCl (Apresoline -) 100 mg PO TID [facility] Last Admin: 02/18/16 06:33 Dose: 100 mg Insulin Aspart (Novolog Vial) 4 units SQ TIDAC [facility] Last Admin: 02/18/16 11:53 Dose: 4 units Insulin Detemir (Levemir Vial) 28 units SQ HS [facility] Last Admin: 02/17/16 22:08 Dose: Not Given Isosorbide Mononitrate (Imdur -) 60 mg PO BID [facility] Last Admin: 02/18/16 10:02 Dose: 60 mg Metoprolol Succinate 100 mg/ (Metoprolol Succinate 50 mg) 150 mg PO BID [facility] Last Admin: 02/18/16 10:02 Dose: 150 mg A/P 55 year old Gentleman with PMhx of CKD stage 4, CHF, Hypertension, DM, Intra- cranial hemorrhage, Obstructive sleep apnea who presented with complaints of sob and urinary retention with BUN/Cr of 41/2.9. #Worsening CKD in setting of CHF/DM Renal function stable at this time UA with 2+ protein, UPCR is 3.5 Proteinuria likey from DM, SPEP/ANNETTA collected - results pending continue Lasix IV BID Trend daily weights, BUN/Cr, electrolytes #Acute Systolic HF/Afib continue diuretics as per cardiology on Heparin gtt for A/C #Insulin dependent DM Check Hgb A1C continue insulin #Hypertension BP acceptable on Imdur, Metoprolol, amlodipine Thank you Will follow Steven Wyatt DO
--- NOTE | 2016-02-18 19:39 | PN ---
Progress Note, Physician - Current Medication List Current Medications: Active Medications Acetaminophen (Tylenol -) 650 mg PO Q6H PRN PRN Reason: FEVER OR PAIN Albuterol/Ipratropium (Duoneb -) 1 amp NEB Q4H PRN PRN Reason: SHORTNESS OF BREATH Last Admin: 02/18/16 10:45 Dose: 1 amp Amlodipine Besylate (Norvasc -) 5 mg PO DAILY [facility] Last Admin: 02/18/16 10:03 Dose: 5 mg Apixaban (Eliquis -) 5 mg PO BID [facility] Last Admin: 02/18/16 11:54 Dose: 5 mg Atorvastatin Calcium (Lipitor -) 10 mg PO HS [facility] Last Admin: 02/17/16 22:08 Dose: 10 mg Furosemide (Lasix Injection -) 80 mg IVPUSH BID@0600,1400 [facility] Last Admin: 02/18/16 13:45 Dose: 80 mg Hydralazine HCl (Apresoline -) 100 mg PO TID [facility] Last Admin: 02/18/16 13:46 Dose: 100 mg Insulin Aspart (Novolog Vial) 4 units SQ TIDAC [facility] Last Admin: 02/18/16 17:32 Dose: Not Given Insulin Detemir (Levemir Vial) 28 units SQ [facility] Last Admin: 02/17/16 22:08 Dose: Not Given Isosorbide Mononitrate (Imdur -) 60 mg PO BID [facility] Last Admin: 02/18/16 10:02 Dose: 60 mg Metoprolol Succinate 100 mg/ (Metoprolol Succinate 50 mg) 150 mg PO BID [facility] Last Admin: 02/18/16 10:02 Dose: 150 mg - Objective Vital Signs: Vital Signs Temperature 98.2 F 02/18/16 15:30 Pulse Rate 96 H 02/18/16 15:30 Respiratory Rate 20 02/18/16 15:30 Blood Pressure 133/66 02/18/16 15:30 O2 Sat by Pulse Oximetry (%) 98 02/18/16 10:20 Labs: CBC, BMP 02/18/16 05:35 02/18/16 05:35 INR, PTT INR 1.47 (0.82-1.09) H 02/15/16 23:00
[2016-02-18] MEDS: ATORVASTATIN CA 10 MG TABLET (FP) PO SCH (22:20)
[2016-02-18] MEDS: INSULIN DETEMIR 100 UNITS/ML MDV SQ SCH (22:23)
[2016-02-19] MEDS: INSULIN (NOVOLOG) ASPART 100 UNITS/ML 10ML VIAL SQ SCH ×3 (06:51→18:05)
[2016-02-19] MEDS: FUROSEMIDE 40 MG/4 ML INJECTABLE VIAL IVPUSH SCH ×2 (06:51→13:51)
[2016-02-19] MEDS: hydrALAZINE HCL 50 MG TABLET (FP) PO SCH ×3 (06:51→22:02)
[2016-02-19 08:11] LABS: BASOPHIL 0.9 % (0-2.0); EOSINOPHIL 2.2 % (0-4.5); MCHC 32.1 g/dl (32.0-35.9); MEAN CELL VOLUME 87.1 fl (80-96); MEAN PLT VOLUME 8.2 fl (7.5-11.1); NEUTROPHILS 65.4 % (42.8-82.8); PLATELET COUNT 215 K/MM3 (134-434); RDW 17.2 % (11.9-15.9); WHITE BLOOD COUNT 8.5 K/mm3 (4.0-10.0)
[2016-02-19] MEDS ORDERED: METOPROLOL SUCCINATE 100 MG TAB.SR.24H (FP) PO ONE ×2 (10:07→21:31)
[2016-02-19] MEDS ORDERED: METOPROLOL SUCCINATE 50 MG TAB.SR.24H (FP) ONE ×2 (10:07→21:32)
[2016-02-19] MEDS: ISOSORBIDE MONONITRATE 60 MG TAB.SR.24H (FP) PO SCH ×2 (10:16→22:02)
[2016-02-19] MEDS: amLODIPine BESYLATE 5 MG TABLET (FP) PO SCH (10:16)
[2016-02-19] MEDS: APIXABAN 5 MG TABLET PO SCH ×2 (10:16→22:02)
[2016-02-19] MEDS: METOPROLOL SUCCINATE 100 MG, METOPROLOL SUCCINATE 50 MG PO SCH ×2 (10:16→22:03)
[2016-02-19 12:16] LABS: ALBUMIN 2.6 g/dl (3.4-5.0); BILIRUBIN,TOTAL 0.7 mg/dL (0.2-1.0); CREATININE 3.1 mg/dL (0.7-1.3); TOT PROT 6.7 g/dl (6.4-8.2)
--- NOTE | 2016-02-19 13:00 | PN ---
Progress Note, Physician History of Present Illness: Breathing improved Diuresing Tele: Afib at 81 - Current Medication List Current Medications: Active Medications Acetaminophen (Tylenol -) 650 mg PO Q6H PRN PRN Reason: FEVER OR PAIN Albuterol/Ipratropium (Duoneb -) 1 amp NEB Q4H PRN PRN Reason: SHORTNESS OF BREATH Last Admin: 02/18/16 22:05 Dose: 1 amp Amlodipine Besylate (Norvasc -) 5 mg PO DAILY [facility] Last Admin: 02/19/16 10:16 Dose: 5 mg Apixaban (Eliquis -) 5 mg PO BID [facility] Last Admin: 02/19/16 10:16 Dose: 5 mg Atorvastatin Calcium (Lipitor -) 10 mg PO [facility] Last Admin: 02/18/16 22:20 Dose: 10 mg Furosemide (Lasix Injection -) 80 mg IVPUSH BID@0600,1400 [facility] Last Admin: 02/19/16 06:51 Dose: 80 mg Hydralazine HCl (Apresoline -) 100 mg PO TID [facility] Last Admin: 02/19/16 06:51 Dose: 100 mg Insulin Aspart (Novolog Vial) 4 units SQ TIDAC [facility] Last Admin: 02/19/16 06:51 Dose: Not Given Insulin Detemir (Levemir Vial) 28 units SQ [facility] Last Admin: 02/18/16 22:23 Dose: Not Given Isosorbide Mononitrate (Imdur -) 60 mg PO BID [facility] Last Admin: 02/19/16 10:16 Dose: 60 mg Metoprolol Succinate 100 mg/ (Metoprolol Succinate 50 mg) 150 mg PO BID [facility] Last Admin: 02/19/16 10:16 Dose: 150 mg - Objective Vital Signs: Vital Signs Temperature 97.4 F L 02/19/16 01:00 Pulse Rate 70 02/19/16 05:00 Respiratory Rate 20 02/19/16 05:00 Blood Pressure 120/65 02/19/16 05:00 O2 Sat by Pulse Oximetry (%) 97 02/18/16 21:00 Constitutional: Yes: Well Nourished Eyes: Yes: WNL HENT: Yes: WNL Neck: Yes: WNL Cardiovascular: Yes: Pulse Irregular Respiratory: Yes: WNL Gastrointestinal: Yes: WNL Edema: Yes Edema: LLE: 2+, RLE: 2+ Labs: CBC, BMP 02/19/16 05:35 02/19/16 10:20 INR, PTT INR 1.47 (0.82-1.09) H 02/15/16 23:00 Assessment/Plan a/p: 55 yo with h/o afib with prior ?embolic 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 acute systolic HF exacerbation, NICM - Last d/c weight 355 lbs and discharged on torsemide 60 qd. Here with vol overload again on IV lasix 80 iv bid, cont same for now, cr stable, sob improving - now that cr stable will dc hep gtt and change back to home eliquis to avoid excess ivfs while diuresing - Daily standing weights, strict i/o's and daily bmp. 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 Contrast enhancing lesion seen 06/19 and the prior heme on MRI were in same location and was thought to be most likely 2/2 post CVA hemorrhagic conversion (i.e. without hi risk for recurrent ICH). Less likely low-grade glioma, which would have very low risk of bleeding if AC resumed--hence the recs at that time were for usual AC considerations for his afib, no special precautions (pt failed repeatedly to f/u with neuro as outpatient, and then worsening renal fxn made him hi risk for morena when here last time). -warfarin changed to eliquis on past admits due to pt's repeated refusal to f/u with cardiology or have reliable INRs and make rec'd coumadin dose change, with worrisome CHADS-VASC 6 = estimated risk 9-10%/year, and hence concern he will stroke again on warfarin. - now that cr stable on Eliquis - Con't home regimen toprol 150 mg bid, rate controlled on tele. cad: -managed medically, no angina/ACS/ischemia since -Here with borderline elevation in troponin, flat trend, likely not acs, instead due to HF exacerbation and gilles/CKD. - continue home statin, bb, imdur, hydralazine - Con't to defer ASA as pt with stable CAD in past and also on AC (and ? incr'd risk for ICH) R carotid stenosis: -ADRIENNE with PSV in high 200s cm/sec here, suspicious for >70% stenosis per radiology report -vascular surgery c/s on prior admit felt stenosis is at MOST 70% (deferred further imaging with contrast due to low GFR). Recommended deferring CEA unless imaging suggested >80% stenosis, or if he developed symptoms/acute cerebrovascular event. Syncope, ? CVA/TIA (recurrent) - Previously pt had episodes of orthostatic hypotension sec to bp meds and diuretics. - similar symptoms at time of possible hemorrhagic CVA in 2014 (collapsed at home then), see discussion below. - had transient neurologic symptoms (speech disturbance) in 12/2015 but not thought to have had TIA per neuro. - Now with recurrent dizziness, but without neurologic symptoms/deficits. Con' t to monitor. CKD: - prior baseline creat ranged 1.5-2.2. s/p GILLES 10/21--went home with creat 2.8 and in 12/2015 creatine stable around 2.5-2.6, possible new baseline. - monitor with diuresis htn: - h/o recurrent orthostatic hypotension symptoms and falls at home had complicated aggressive tx targets in the past. - cont home regimen amlodipine 5 mg/day, Hydralazine 100 mg PO TID, Isosorbide Mononitrate 60 mg PO BID, Metoprolol Succinate 150 mg PO BID and monitor. thoracic aorta aneurysm: - mod dilated aortic root, chronic finding - cont BB, bp control as doing morbid obesity, ? DAMIAN: -suspected DAMIAN, positive study in past but he has refused f/u or tx.
--- NOTE | 2016-02-19 14:01 | PN ---
Progress Note (short form) - Note Progress Note: Renal Follow up for CKD/Volume Overload Pt seen and examined at the bedside still has sob and jacome Vital Signs Temperature 97.0 F L 02/19/16 09:00 Pulse Rate 88 02/19/16 09:00 Respiratory Rate 18 02/19/16 09:00 Blood Pressure 144/79 02/19/16 09:00 O2 Sat by Pulse Oximetry (%) 97 02/18/16 21:00 Intake & Output 02/16/16 02/17/16 02/18/16 02/19/16 23:59 23:59 23:59 23:59 Intake Total 679 858 2649 Output Total 500 1200 1300 Balance 340 -600 -80 Weight 383 lb 12.8 oz 383 lb 9.6 oz 384 lb Gen: NAD, on NC. Awake and alert CVS: RRR, No M/R Lungs: CTA, no rales or wheeze Abd: Soft NT/ND Ext: 2+ edema in LE, + erythema. No tenderness CBC, BMP 02/19/16 05:35 02/19/16 10:20 Laboratory Tests 02/19/16 05:35 Sodium 134 L Potassium 3.8 Chloride 101 Carbon Dioxide 24 Anion Gap 9 BUN 49 H Creatinine 3.1 H Current Medications Acetaminophen (Tylenol -) 650 mg PO Q6H PRN PRN Reason: FEVER OR PAIN Albuterol/Ipratropium (Duoneb -) 1 amp NEB Q4H PRN PRN Reason: SHORTNESS OF BREATH Last Admin: 02/18/16 22:05 Dose: 1 amp Amlodipine Besylate (Norvasc -) 5 mg PO DAILY [facility] Last Admin: 02/19/16 10:16 Dose: 5 mg Apixaban (Eliquis -) 5 mg PO BID [facility] Last Admin: 02/19/16 10:16 Dose: 5 mg Atorvastatin Calcium (Lipitor -) 10 mg PO HS [facility] Last Admin: 02/18/16 22:20 Dose: 10 mg Furosemide (Lasix Injection -) 80 mg IVPUSH BID@0600,1400 [facility] Last Admin: 02/19/16 13:51 Dose: 80 mg Hydralazine HCl (Apresoline -) 100 mg PO TID [facility] Last Admin: 02/19/16 13:51 Dose: 100 mg Insulin Aspart (Novolog Vial) 4 units SQ TIDAC [facility] Last Admin: 02/19/16 13:52 Dose: Not Given Insulin Detemir (Levemir Vial) 28 units SQ HS [facility] Last Admin: 02/18/16 22:23 Dose: Not Given Isosorbide Mononitrate (Imdur -) 60 mg PO BID [facility] Last Admin: 02/19/16 10:16 Dose: 60 mg Metoprolol Succinate 100 mg/ (Metoprolol Succinate 50 mg) 150 mg PO BID [facility] Last Admin: 02/19/16 10:16 Dose: 150 mg A/P 55 year old Gentleman with PMhx of CKD stage 4, CHF, Hypertension, DM, Intra- cranial hemorrhage, Obstructive sleep apnea who presented with complaints of sob and urinary retention with BUN/Cr of 41/2.9. #Worsening CKD in setting of CHF/DM BUN/cr slightly elevated continue lasix as pt is still volume overlaoded trend bUN/Cr #Acute Systolic HF/Afib continue diuretics as per cardiology on Heparin gtt for A/C #Hypertension BP acceptable on Imdur, Metoprolol, amlodipine Thank you Will follow Steven Wyatt DO
--- NOTE | 2016-02-19 16:13 | PN ---
Progress Note, Physician History of Present Illness: stable, no jacome or so - Current Medication List Current Medications: Active Medications Acetaminophen (Tylenol -) 650 mg PO Q6H PRN PRN Reason: FEVER OR PAIN Albuterol/Ipratropium (Duoneb -) 1 amp NEB Q4H PRN PRN Reason: SHORTNESS OF BREATH Last Admin: 02/18/16 22:05 Dose: 1 amp Amlodipine Besylate (Norvasc -) 5 mg PO DAILY [facility] Last Admin: 02/19/16 10:16 Dose: 5 mg Apixaban (Eliquis -) 5 mg PO BID [facility] Last Admin: 02/19/16 10:16 Dose: 5 mg Atorvastatin Calcium (Lipitor -) 10 mg PO HS [facility] Last Admin: 02/18/16 22:20 Dose: 10 mg Furosemide (Lasix Injection -) 80 mg IVPUSH BID@0600,1400 [facility] Last Admin: 02/19/16 13:51 Dose: 80 mg Hydralazine HCl (Apresoline -) 100 mg PO TID [facility] Last Admin: 02/19/16 13:51 Dose: 100 mg Insulin Aspart (Novolog Vial) 4 units SQ TIDAC [facility] Last Admin: 02/19/16 13:52 Dose: Not Given Insulin Detemir (Levemir Vial) 28 units SQ [facility] Last Admin: 02/18/16 22:23 Dose: Not Given Isosorbide Mononitrate (Imdur -) 60 mg PO BID [facility] Last Admin: 02/19/16 10:16 Dose: 60 mg Metoprolol Succinate 100 mg/ (Metoprolol Succinate 50 mg) 150 mg PO BID [facility] Last Admin: 02/19/16 10:16 Dose: 150 mg - Objective Vital Signs: Vital Signs Temperature 98.1 F 02/19/16 14:11 Pulse Rate 86 02/19/16 14:11 Respiratory Rate 20 02/19/16 14:11 Blood Pressure 123/74 02/19/16 14:11 O2 Sat by Pulse Oximetry (%) 97 02/18/16 21:00 Constitutional: Yes: No Distress Eyes: Yes: Conjunctiva Clear Cardiovascular: Yes: Regular Rate and Rhythm Respiratory: Yes: CTA Bilaterally Gastrointestinal: Yes: Normal Bowel Sounds Extremities: Yes: WNL Neurological: Yes: Alert, Oriented Labs: CBC, BMP 02/19/16 05:35 02/19/16 10:20 INR, PTT INR 1.47 (0.82-1.09) H 02/15/16 23:00 Problem List - Problems (1) CHF (congestive heart failure) Code(s): I50.9 - HEART FAILURE, UNSPECIFIED Qualifiers: Congestive heart failure type: unspecified congestive heart failure type Congestive heart failure chronicity: acute on chronic Qualified Code(s ): I50.9 - Heart failure, unspecified (2) Hyperlipemia Code(s): E78.5 - HYPERLIPIDEMIA, UNSPECIFIED (3) Uncontrolled diabetes mellitus Code(s): E11.65 - TYPE 2 DIABETES MELLITUS WITH HYPERGLYCEMIA (5) Acute on chronic renal failure Code(s): N17.9 - ACUTE KIDNEY FAILURE, UNSPECIFIED N18.9 - CHRONIC KIDNEY DISEASE, UNSPECIFIED Assessment/Plan 1.chf on diuretics and cardiac meds 2.uncontrolled dm on insulin will check hgba1c 3.afib on iv heparin 4.ckd monitor renal function..cr getting worse slowly 5.htn 6.morbid obesity [place] on bipap at night sob resolved, pt clinically better
[2016-02-19] MEDS: ALBUTEROL SO4 2.5/IPRATROPIUM 0.5 INH SOL 3 ML VIAL.NEB. NEB PRN (21:50)
[2016-02-19] MEDS: INSULIN DETEMIR 100 UNITS/ML MDV SQ SCH (22:03)
[2016-02-19] MEDS: ATORVASTATIN CA 10 MG TABLET (FP) PO SCH (22:03)
[2016-02-20] MEDS: INSULIN (NOVOLOG) ASPART 100 UNITS/ML 10ML VIAL SQ SCH ×3 (06:44→17:26)
[2016-02-20] MEDS: hydrALAZINE HCL 50 MG TABLET (FP) PO SCH ×3 (06:44→23:03)
[2016-02-20] MEDS: FUROSEMIDE 40 MG/4 ML INJECTABLE VIAL IVPUSH SCH ×2 (06:44→13:41)
[2016-02-20 08:05] LABS: BASOPHIL 0.4 % (0-2.0); EOSINOPHIL 2.8 % (0-4.5); MCH 27.8 pg (25.7-33.7); MCHC 31.9 g/dl (32.0-35.9); MEAN CELL VOLUME 87.3 fl (80-96); MEAN PLT VOLUME 8.2 fl (7.5-11.1); NEUTROPHILS 70.4 % (42.8-82.8); PLATELET COUNT 227 K/MM3 (134-434); RDW 17.3 % (11.9-15.9); WHITE BLOOD COUNT 9.2 K/mm3 (4.0-10.0)
[2016-02-20 08:16] LABS: CALCIUM 8.1 mg/dL (8.5-10.1); CREATININE 3.3 mg/dL (0.7-1.3); MAGNESIUM 2.3 mg/dL (1.8-2.4); PHOSPHOROUS 4.9 mg/dL (2.5-4.9)
[2016-02-20] MEDS ORDERED: METOPROLOL SUCCINATE 100 MG TAB.SR.24H (FP) PO ONE ×2 (08:59→23:01)
[2016-02-20] MEDS ORDERED: METOPROLOL SUCCINATE 50 MG TAB.SR.24H (FP) ONE ×2 (08:59→23:02)
[2016-02-20] MEDS: ISOSORBIDE MONONITRATE 60 MG TAB.SR.24H (FP) PO SCH ×2 (09:52→23:03)
[2016-02-20] MEDS: APIXABAN 5 MG TABLET PO SCH ×2 (09:52→23:03)
[2016-02-20] MEDS: amLODIPine BESYLATE 5 MG TABLET (FP) PO SCH (09:53)
[2016-02-20] MEDS: METOPROLOL SUCCINATE 100 MG, METOPROLOL SUCCINATE 50 MG PO SCH ×2 (09:53→23:03)
--- NOTE | 2016-02-20 11:17 | PN ---
Progress Note, Physician Chief Complaint: No events overnight Tele: Afib at 83 Breathing improving - Current Medication List Current Medications: Active Medications Acetaminophen (Tylenol -) 650 mg PO Q6H PRN PRN Reason: FEVER OR PAIN Albuterol/Ipratropium (Duoneb -) 1 amp NEB Q4H PRN PRN Reason: SHORTNESS OF BREATH Last Admin: 02/19/16 21:50 Dose: 1 amp Amlodipine Besylate (Norvasc -) 5 mg PO DAILY [facility] Last Admin: 02/20/16 09:53 Dose: 5 mg Apixaban (Eliquis -) 5 mg PO BID [facility] Last Admin: 02/20/16 09:52 Dose: 5 mg Atorvastatin Calcium (Lipitor -) 10 mg PO HS [facility] Last Admin: 02/19/16 22:03 Dose: 10 mg Furosemide (Lasix Injection -) 80 mg IVPUSH BID@0600,1400 [facility] Last Admin: 02/20/16 06:44 Dose: 80 mg Hydralazine HCl (Apresoline -) 100 mg PO TID [facility] Last Admin: 02/20/16 06:44 Dose: 100 mg Insulin Aspart (Novolog Vial) 4 units SQ TIDAC [facility] Last Admin: 02/20/16 06:44 Dose: Not Given Insulin Detemir (Levemir Vial) 28 units SQ [facility] Last Admin: 02/19/16 22:03 Dose: Not Given Isosorbide Mononitrate (Imdur -) 60 mg PO BID [facility] Last Admin: 02/20/16 09:52 Dose: 60 mg Metoprolol Succinate 100 mg/ (Metoprolol Succinate 50 mg) 150 mg PO BID [facility] Last Admin: 02/20/16 09:53 Dose: 150 mg - Objective Vital Signs: Vital Signs Temperature 97 F L 02/20/16 10:00 Pulse Rate 89 02/20/16 10:00 Respiratory Rate 18 02/20/16 10:00 Blood Pressure 109/61 02/20/16 10:00 O2 Sat by Pulse Oximetry (%) 95 02/19/16 21:00 Constitutional: Yes: No Distress, Calm Eyes: Yes: WNL HENT: Yes: WNL, Rhinnorhea Cardiovascular: Yes: Pulse Irregular Respiratory: Yes: Regular, CTA Bilaterally Gastrointestinal: Yes: WNL Extremities: Yes: WNL Edema: Yes Edema: LLE: 1+, RLE: 1+ Labs: CBC, BMP 02/20/16 05:35 02/20/16 05:35 INR, PTT INR 1.47 (0.82-1.09) H 02/15/16 23:00 Assessment/Plan a/p: 55 yo with h/o afib with prior ?embolic CVA 05/2014 ([facility]) right visual field cut, syncope 09/19 with ICH at that time vs other entity on MRI and recurrent syncope 12/2015 (unclear etiology), Non-ischemic cardiomyopathy dx 2013 at [facility], HTN, HPL, Rt carotid stenosis, IDDM, RLE cellulitis s/p debridement, MSSA bacteremia 10/2015, DAMIAN not on home cpap, ckd, who presents with sob/RVR. acute systolic HF exacerbation, NICM - Last d/c weight 355 lbs and discharged on torsemide 60 qd. Here with vol overload again on IV lasix 80 iv bid, cont same for now, cr stable, sob improving - now that cr stable will dc hep gtt and change back to home eliquis to avoid excess ivfs while diuresing - Daily standing weights, strict i/o's and daily bmp. 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 Contrast enhancing lesion seen 06/19 and the prior heme on MRI were in same location and was thought to be most likely 2/2 post CVA hemorrhagic conversion (i.e. without hi risk for recurrent ICH). Less likely low-grade glioma, which would have very low risk of bleeding if AC resumed--hence the recs at that time were for usual AC considerations for his afib, no special precautions (pt failed repeatedly to f/u with neuro as outpatient, and then worsening renal fxn made him hi risk for morena when here last time). -warfarin changed to eliquis on past admits due to pt's repeated refusal to f/u with cardiology or have reliable INRs and make rec'd coumadin dose change, with worrisome CHADS-VASC 6 = estimated risk 9-10%/year, and hence concern he will stroke again on warfarin. - now that cr stable on Eliquis - Con't home regimen toprol 150 mg bid, rate controlled on tele. cad: -managed medically, no angina/ACS/ischemia since -Here with borderline elevation in troponin, flat trend, likely not acs, instead due to HF exacerbation and gilles/CKD. - continue home statin, bb, imdur, hydralazine - Con't to defer ASA as pt with stable CAD in past and also on AC (and ? incr'd risk for ICH) R carotid stenosis: -ADRIENNE with PSV in high 200s cm/sec here, suspicious for >70% stenosis per radiology report -vascular surgery c/s on prior admit felt stenosis is at MOST 70% (deferred further imaging with contrast due to low GFR). Recommended deferring CEA unless imaging suggested >80% stenosis, or if he developed symptoms/acute cerebrovascular event. Syncope, ? CVA/TIA (recurrent) - Previously pt had episodes of orthostatic hypotension sec to bp meds and diuretics. - similar symptoms at time of possible hemorrhagic CVA in 2014 (collapsed at home then), see discussion below. - had transient neurologic symptoms (speech disturbance) in 12/2015 but not thought to have had TIA per neuro. - Now with recurrent dizziness, but without neurologic symptoms/deficits. Con' t to monitor. CKD: - prior baseline creat ranged 1.5-2.2. s/p GILLES 10/21--went home with creat 2.8 and in 12/2015 creatine stable around 2.5-2.6, possible new baseline. - monitor with diuresis htn: - h/o recurrent orthostatic hypotension symptoms and falls at home had complicated aggressive tx targets in the past. - cont home regimen amlodipine 5 mg/day, Hydralazine 100 mg PO TID, Isosorbide Mononitrate 60 mg PO BID, Metoprolol Succinate 150 mg PO BID and monitor. thoracic aorta aneurysm: - mod dilated aortic root, chronic finding - cont BB, bp control as doing morbid obesity, ? DAMIAN: -suspected DAMIAN, positive study in past but he has refused f/u or tx.
--- NOTE | 2016-02-20 14:08 | PN ---
Progress Note, Physician History of Present Illness: stable, no jacome or sob - Current Medication List Current Medications: Active Medications Acetaminophen (Tylenol -) 650 mg PO Q6H PRN PRN Reason: FEVER OR PAIN Albuterol/Ipratropium (Duoneb -) 1 amp NEB Q4H PRN PRN Reason: SHORTNESS OF BREATH Last Admin: 02/19/16 21:50 Dose: 1 amp Amlodipine Besylate (Norvasc -) 5 mg PO DAILY [facility] Last Admin: 02/20/16 09:53 Dose: 5 mg Apixaban (Eliquis -) 5 mg PO BID [facility] Last Admin: 02/20/16 09:52 Dose: 5 mg Atorvastatin Calcium (Lipitor -) 10 mg PO [facility] Last Admin: 02/19/16 22:03 Dose: 10 mg Furosemide (Lasix Injection -) 80 mg IVPUSH BID@0600,1400 [facility] Last Admin: 02/20/16 13:41 Dose: 80 mg Hydralazine HCl (Apresoline -) 100 mg PO TID [facility] Last Admin: 02/20/16 13:41 Dose: 100 mg Insulin Aspart (Novolog Vial) 4 units SQ TIDAC [facility] Last Admin: 02/20/16 12:16 Dose: Not Given Insulin Detemir (Levemir Vial) 28 units SQ [facility] Last Admin: 02/19/16 22:03 Dose: Not Given Isosorbide Mononitrate (Imdur -) 60 mg PO BID [facility] Last Admin: 02/20/16 09:52 Dose: 60 mg Metoprolol Succinate 100 mg/ (Metoprolol Succinate 50 mg) 150 mg PO BID [facility] Last Admin: 02/20/16 09:53 Dose: 150 mg - Objective Vital Signs: Vital Signs Temperature 97 F L 02/20/16 10:00 Pulse Rate 89 02/20/16 10:00 Respiratory Rate 18 02/20/16 10:00 Blood Pressure 109/61 02/20/16 10:00 O2 Sat by Pulse Oximetry (%) 94 L 02/20/16 09:00 Constitutional: Yes: No Distress HENT: Yes: Atraumatic Neck: Yes: Supple Cardiovascular: Yes: Regular Rate and Rhythm Respiratory: Yes: CTA Bilaterally Gastrointestinal: Yes: Normal Bowel Sounds Extremities: Yes: WNL Neurological: Yes: Alert, Oriented Labs: CBC, BMP 02/20/16 05:35 02/20/16 05:35 INR, PTT INR 1.47 (0.82-1.09) H 02/15/16 23:00 Problem List - Problems (1) CHF (congestive heart failure) Code(s): I50.9 - HEART FAILURE, UNSPECIFIED Qualifiers: Congestive heart failure type: unspecified congestive heart failure type Congestive heart failure chronicity: acute on chronic Qualified Code(s ): I50.9 - Heart failure, unspecified (2) Hyperlipemia Code(s): E78.5 - HYPERLIPIDEMIA, UNSPECIFIED (3) Uncontrolled diabetes mellitus Code(s): E11.65 - TYPE 2 DIABETES MELLITUS WITH HYPERGLYCEMIA (5) Acute on chronic renal failure Code(s): N17.9 - ACUTE KIDNEY FAILURE, UNSPECIFIED N18.9 - CHRONIC KIDNEY DISEASE, UNSPECIFIED Assessment/Plan 1.chf on diuretics and cardiac meds 2.uncontrolled dm on insulin will check hgba1c 3.afib on iv heparin 4.ckd monitor renal function..cr getting worse slowly 5.htn 6.morbid obesity [place] on bipap at night sob resolved, pt clinically better
[2016-02-20] MEDS: ALBUTEROL SO4 2.5/IPRATROPIUM 0.5 INH SOL 3 ML VIAL.NEB. NEB PRN (22:40)
[2016-02-20] MEDS: INSULIN DETEMIR 100 UNITS/ML MDV SQ SCH (23:00)
[2016-02-20] MEDS: ATORVASTATIN CA 10 MG TABLET (FP) PO SCH (23:03)
[2016-02-21] MEDS: hydrALAZINE HCL 50 MG TABLET (FP) PO SCH ×3 (06:45→22:14)
[2016-02-21] MEDS: FUROSEMIDE 40 MG/4 ML INJECTABLE VIAL IVPUSH SCH ×2 (07:22→14:37)
[2016-02-21] MEDS: INSULIN (NOVOLOG) ASPART 100 UNITS/ML 10ML VIAL SQ SCH ×3 (07:23→17:38)
[2016-02-21 07:46] LABS: MCH 27.9 pg (25.7-33.7); MCHC 32.2 g/dl (32.0-35.9); MEAN CELL VOLUME 86.5 fl (80-96); MEAN PLT VOLUME 8.3 fl (7.5-11.1); PLATELET COUNT 215 K/MM3 (134-434); RDW 16.9 % (11.9-15.9); WHITE BLOOD COUNT 9.6 K/mm3 (4.0-10.0)
[2016-02-21 08:14] LABS: CALCIUM 8.2 mg/dL (8.5-10.1); MAGNESIUM 2.2 mg/dL (1.8-2.4)
[2016-02-21] MEDS ORDERED: METOPROLOL SUCCINATE 50 MG TAB.SR.24H (FP) ONE ×2 (08:42→21:23)
[2016-02-21] MEDS ORDERED: METOPROLOL SUCCINATE 100 MG TAB.SR.24H (FP) PO ONE ×2 (08:42→21:23)
[2016-02-21] MEDS: ISOSORBIDE MONONITRATE 60 MG TAB.SR.24H (FP) PO SCH ×2 (09:25→22:14)
[2016-02-21] MEDS: amLODIPine BESYLATE 5 MG TABLET (FP) PO SCH (09:25)
[2016-02-21] MEDS: APIXABAN 5 MG TABLET PO SCH ×2 (09:25→22:14)
[2016-02-21] MEDS: METOPROLOL SUCCINATE 100 MG, METOPROLOL SUCCINATE 50 MG PO SCH ×2 (09:26→22:15)
--- NOTE | 2016-02-21 10:03 | PN ---
Progress Note (short form) - Note Progress Note: Renal Follow up for CKD/Volume Overload Pt seen and examined at the bedside no acute complaints feels better + CALDERON no chest pain Vital Signs Temperature 98.4 F 02/21/16 06:00 Pulse Rate 85 02/21/16 06:00 Respiratory Rate 20 02/21/16 06:00 Blood Pressure 138/75 02/21/16 06:00 O2 Sat by Pulse Oximetry (%) 92 L 02/20/16 21:00 Intake & Output 02/18/16 02/19/16 02/20/16 02/21/16 23:59 23:59 23:59 23:59 Intake Total 1220 Output Total 1300 2250 Balance -80 -2250 Weight 383 lb 9.6 oz 384 lb 380 lb 9.6 oz 376 lb Gen: NAD, on NC. Awake and alert CVS: RRR, No M/R Lungs: CTA, no rales or wheeze Abd: Soft NT/ND Ext: 2+ edema in LE, + erythema. No tenderness CBC, BMP 02/21/16 05:35 02/21/16 05:35 Current Medications Acetaminophen (Tylenol -) 650 mg PO Q6H PRN PRN Reason: FEVER OR PAIN Albuterol/Ipratropium (Duoneb -) 1 amp NEB Q4H PRN PRN Reason: SHORTNESS OF BREATH Last Admin: 02/20/16 22:40 Dose: 1 amp Amlodipine Besylate (Norvasc -) 5 mg PO DAILY [facility] Last Admin: 02/21/16 09:25 Dose: 5 mg Apixaban (Eliquis -) 5 mg PO BID [facility] Last Admin: 02/21/16 09:25 Dose: 5 mg Atorvastatin Calcium (Lipitor -) 10 mg PO HS [facility] Last Admin: 02/20/16 23:03 Dose: 10 mg Furosemide (Lasix Injection -) 80 mg IVPUSH BID@0600,1400 [facility] Last Admin: 02/21/16 07:22 Dose: 80 mg Hydralazine HCl (Apresoline -) 100 mg PO TID [facility] Last Admin: 02/21/16 06:45 Dose: 100 mg Insulin Aspart (Novolog Vial) 4 units SQ TIDAC [facility] Last Admin: 02/21/16 07:23 Dose: Not Given Insulin Detemir (Levemir Vial) 28 units SQ HS [facility] Last Admin: 02/20/16 23:00 Dose: Not Given Isosorbide Mononitrate (Imdur -) 60 mg PO BID [facility] Last Admin: 02/21/16 09:25 Dose: 60 mg Metoprolol Succinate 100 mg/ (Metoprolol Succinate 50 mg) 150 mg PO BID [facility] Last Admin: 02/21/16 09:26 Dose: 150 mg A/P 55 year old Gentleman with PMhx of CKD stage 4, CHF, Hypertension, DM, Intra- cranial hemorrhage, Obstructive sleep apnea who presented with complaints of sob and urinary retention with BUN/Cr of 41/2.9. #Worsening CKD in setting of CHF/DM Renal function essentially unchanged this admission despite being worse then baseline could continue IV lasix to acheive evolemia trend BUN/cr, electrolytes #Acute Systolic HF/Afib continue diuretics as per cardiology no on Eliquis #Hypertension BP acceptable on Imdur, Metoprolol, amlodipine Thank you Will follow Steven Wyatt DO
[2016-02-21] MEDS: ALBUTEROL SO4 2.5/IPRATROPIUM 0.5 INH SOL 3 ML VIAL.NEB. NEB PRN (10:35)
--- NOTE | 2016-02-21 12:13 | PN ---
Progress Note, Physician History of Present Illness: No events Feels breathing is getting better Tele: Afib at 89/min - Current Medication List Current Medications: Active Medications Acetaminophen (Tylenol -) 650 mg PO Q6H PRN PRN Reason: FEVER OR PAIN Albuterol/Ipratropium (Duoneb -) 1 amp NEB Q4H PRN PRN Reason: SHORTNESS OF BREATH Last Admin: 02/21/16 10:35 Dose: 1 amp Amlodipine Besylate (Norvasc -) 5 mg PO DAILY [facility] Last Admin: 02/21/16 09:25 Dose: 5 mg Apixaban (Eliquis -) 5 mg PO BID [facility] Last Admin: 02/21/16 09:25 Dose: 5 mg Atorvastatin Calcium (Lipitor -) 10 mg PO [facility] Last Admin: 02/20/16 23:03 Dose: 10 mg Furosemide (Lasix Injection -) 80 mg IVPUSH BID@0600,1400 [facility] Last Admin: 02/21/16 07:22 Dose: 80 mg Hydralazine HCl (Apresoline -) 100 mg PO TID [facility] Last Admin: 02/21/16 06:45 Dose: 100 mg Insulin Aspart (Novolog Vial) 4 units SQ TIDAC [facility] Last Admin: 02/21/16 11:55 Dose: Not Given Insulin Detemir (Levemir Vial) 28 units SQ [facility] Last Admin: 02/20/16 23:00 Dose: Not Given Isosorbide Mononitrate (Imdur -) 60 mg PO BID [facility] Last Admin: 02/21/16 09:25 Dose: 60 mg Metoprolol Succinate 100 mg/ (Metoprolol Succinate 50 mg) 150 mg PO BID [facility] Last Admin: 02/21/16 09:26 Dose: 150 mg - Objective Vital Signs: Vital Signs Temperature 97.8 F 02/21/16 10:00 Pulse Rate 94 H 02/21/16 10:35 Respiratory Rate 18 02/21/16 10:00 Blood Pressure 160/100 02/21/16 10:00 O2 Sat by Pulse Oximetry (%) 95 02/21/16 10:35 Constitutional: Yes: No Distress Eyes: Yes: WNL HENT: Yes: WNL Neck: Yes: WNL Cardiovascular: Yes: WNL, Pulse Irregular Respiratory: Yes: WNL Gastrointestinal: Yes: WNL Edema: Yes Edema: LLE: 2+, RLE: 2+ Labs: CBC, BMP 02/21/16 05:35 02/21/16 05:35 INR, PTT INR 1.47 (0.82-1.09) H 02/15/16 23:00 Assessment/Plan a/p: 55 yo with h/o afib with prior ?embolic 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 acute systolic HF exacerbation, NICM - Here with vol overload again on IV lasix 80 iv bid, cont same for now, cr stable at 3, sob improving - Daily standing weights, strict i/o's and daily bmp. 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 Contrast enhancing lesion seen 06/19 and the prior heme on MRI were in same location and was thought to be most likely 2/2 post CVA hemorrhagic conversion (i.e. without hi risk for recurrent ICH). Less likely low-grade glioma, which would have very low risk of bleeding if AC resumed--hence the recs at that time were for usual AC considerations for his afib, no special precautions (pt failed repeatedly to f/u with neuro as outpatient, and then worsening renal fxn made him hi risk for morena when here last time). -warfarin changed to eliquis on past admits due to pt's repeated refusal to f/u with cardiology or have reliable INRs and make rec'd coumadin dose change, with worrisome CHADS-VASC 6 = estimated risk 9-10%/year, and hence concern he will stroke again on warfarin. - now that cr stable on Eliquis 5 (Has low CrCl but Weight >60kg) - Con't home regimen toprol 150 mg bid, rate controlled on tele. cad: -managed medically, no angina/ACS/ischemia since -Here with borderline elevation in troponin, flat trend, likely not acs, instead due to HF exacerbation and gilles/CKD. - continue home statin, bb, imdur, hydralazine - Con't to defer ASA as pt with stable CAD in past and also on AC (and ? incr'd risk for ICH) R carotid stenosis: -ADRIENNE with PSV in high 200s cm/sec here, suspicious for >70% stenosis per radiology report -vascular surgery c/s on prior admit felt stenosis is at MOST 70% (deferred further imaging with contrast due to low GFR). Recommended deferring CEA unless imaging suggested >80% stenosis, or if he developed symptoms/acute cerebrovascular event. Syncope, ? CVA/TIA (recurrent) - Previously pt had episodes of orthostatic hypotension sec to bp meds and diuretics. - similar symptoms at time of possible hemorrhagic CVA in 2014 (collapsed at home then), see discussion below. - had transient neurologic symptoms (speech disturbance) in 12/2015 but not thought to have had TIA per neuro. - Now with recurrent dizziness, but without neurologic symptoms/deficits. Con' t to monitor. CKD: - prior baseline creat ranged 1.5-2.2. s/p GILLES 10/21--went home with creat 2.8 and in 12/2015 creatine stable around 2.5-2.6, possible new baseline. - currently 3, continue to monitor with diuresis
--- NOTE | 2016-02-21 19:05 | PN ---
Progress Note, Physician History of Present Illness: stable, no jacome or sob - Current Medication List Current Medications: Active Medications Acetaminophen (Tylenol -) 650 mg PO Q6H PRN PRN Reason: FEVER OR PAIN Albuterol/Ipratropium (Duoneb -) 1 amp NEB Q4H PRN PRN Reason: SHORTNESS OF BREATH Last Admin: 02/21/16 10:35 Dose: 1 amp Amlodipine Besylate (Norvasc -) 5 mg PO DAILY [facility] Last Admin: 02/21/16 09:25 Dose: 5 mg Apixaban (Eliquis -) 5 mg PO BID [facility] Last Admin: 02/21/16 09:25 Dose: 5 mg Atorvastatin Calcium (Lipitor -) 10 mg PO [facility] Last Admin: 02/20/16 23:03 Dose: 10 mg Furosemide (Lasix Injection -) 80 mg IVPUSH BID@0600,1400 [facility] Last Admin: 02/21/16 14:37 Dose: 80 mg Hydralazine HCl (Apresoline -) 100 mg PO TID [facility] Last Admin: 02/21/16 14:37 Dose: 100 mg Insulin Aspart (Novolog Vial) 4 units SQ TIDAC [facility] Last Admin: 02/21/16 17:38 Dose: Not Given Insulin Detemir (Levemir Vial) 28 units SQ [facility] Last Admin: 02/20/16 23:00 Dose: Not Given Isosorbide Mononitrate (Imdur -) 60 mg PO BID [facility] Last Admin: 02/21/16 09:25 Dose: 60 mg Metoprolol Succinate 100 mg/ (Metoprolol Succinate 50 mg) 150 mg PO BID [facility] Last Admin: 02/21/16 09:26 Dose: 150 mg - Objective Vital Signs: Vital Signs Temperature 97.9 F 02/21/16 17:00 Pulse Rate 82 02/21/16 17:00 Respiratory Rate 20 02/21/16 17:00 Blood Pressure 156/102 02/21/16 17:00 O2 Sat by Pulse Oximetry (%) 95 02/21/16 10:35 Constitutional: Yes: No Distress HENT: Yes: Atraumatic Neck: Yes: Supple Cardiovascular: Yes: Regular Rate and Rhythm Respiratory: Yes: CTA Bilaterally Gastrointestinal: Yes: Normal Bowel Sounds Extremities: Yes: WNL Neurological: Yes: Alert, Oriented Labs: CBC, BMP 02/21/16 05:35 02/21/16 05:35 INR, PTT INR 1.47 (0.82-1.09) H 02/15/16 23:00 Problem List - Problems (1) CHF (congestive heart failure) Code(s): I50.9 - HEART FAILURE, UNSPECIFIED Qualifiers: Congestive heart failure type: unspecified congestive heart failure type Congestive heart failure chronicity: acute on chronic Qualified Code(s ): I50.9 - Heart failure, unspecified (2) Hyperlipemia Code(s): E78.5 - HYPERLIPIDEMIA, UNSPECIFIED (3) Uncontrolled diabetes mellitus Code(s): E11.65 - TYPE 2 DIABETES MELLITUS WITH HYPERGLYCEMIA (5) Acute on chronic renal failure Code(s): N17.9 - ACUTE KIDNEY FAILURE, UNSPECIFIED N18.9 - CHRONIC KIDNEY DISEASE, UNSPECIFIED Assessment/Plan 1.chf on diuretics and cardiac meds 2.uncontrolled dm on insulin will check hgba1c 3.afib on iv heparin 4.ckd monitor renal function..cr better today 5.htn 6.morbid obesity [place] on bipap at night sob resolved, pt clinically better
[2016-02-21] MEDS: INSULIN DETEMIR 100 UNITS/ML MDV SQ SCH (22:14)
[2016-02-21] MEDS: ATORVASTATIN CA 10 MG TABLET (FP) PO SCH (22:15)
[2016-02-22 00:07] LABS: A/G RATIO 0.6 (0.7-1.7); ALBUMIN 2.5 g/dL (2.9-4.4); GLOBULIN, TOTAL 3.9 g/dL (2.2-3.9); M-SPIKE Not Observed g/dL (Not Observed); TOTAL PROTEIN 6.4 g/dL (6.0-8.5)
[2016-02-22] MEDS: INSULIN (NOVOLOG) ASPART 100 UNITS/ML 10ML VIAL SQ SCH ×3 (06:24→17:17)
[2016-02-22] MEDS: hydrALAZINE HCL 50 MG TABLET (FP) PO SCH ×3 (06:28→21:48)
[2016-02-22] MEDS: FUROSEMIDE 40 MG/4 ML INJECTABLE VIAL IVPUSH SCH ×2 (06:28→14:50)
[2016-02-22] MEDS ORDERED: METOPROLOL SUCCINATE 50 MG TAB.SR.24H (FP) ONE ×2 (08:19→21:10)
[2016-02-22] MEDS ORDERED: METOPROLOL SUCCINATE 100 MG TAB.SR.24H (FP) PO ONE ×2 (08:19→21:10)
[2016-02-22 08:35] LABS: CALCIUM 8.5 mg/dL (8.5-10.1); CREATININE 2.8 mg/dL (0.7-1.3)
--- NOTE | 2016-02-22 09:22 | PN ---
Progress Note (short form) - Note Progress Note: CC: systolic HF exacerbation S: No events. SOB still not at baseline. Still with improvement with nebs. no cp, palps, dizziness. Current Medications Acetaminophen (Tylenol -) 650 mg PO Q6H PRN PRN Reason: FEVER OR PAIN Albuterol/Ipratropium (Duoneb -) 1 amp NEB Q4H PRN PRN Reason: SHORTNESS OF BREATH Last Admin: 02/21/16 10:35 Dose: 1 amp Amlodipine Besylate (Norvasc -) 5 mg PO DAILY [facility] Last Admin: 02/21/16 09:25 Dose: 5 mg Apixaban (Eliquis -) 5 mg PO BID [facility] Last Admin: 02/21/16 22:14 Dose: 5 mg Atorvastatin Calcium (Lipitor -) 10 mg PO HS [facility] Last Admin: 02/21/16 22:15 Dose: 10 mg Furosemide (Lasix Injection -) 80 mg IVPUSH BID@0600,1400 [facility] Last Admin: 02/22/16 06:28 Dose: 80 mg Hydralazine HCl (Apresoline -) 100 mg PO TID [facility] Last Admin: 02/22/16 06:28 Dose: 100 mg Insulin Aspart (Novolog Vial) 4 units SQ TIDAC [facility] Last Admin: 02/22/16 06:24 Dose: Not Given Insulin Detemir (Levemir Vial) 28 units SQ HS [facility] Last Admin: 02/21/16 22:14 Dose: Not Given Isosorbide Mononitrate (Imdur -) 60 mg PO BID [facility] Last Admin: 02/21/16 22:14 Dose: 60 mg Metoprolol Succinate 100 mg/ (Metoprolol Succinate 50 mg) 150 mg PO BID [facility] Last Admin: 02/21/16 22:15 Dose: 150 mg - Objective Vital Signs: Vital Signs - 24 hr 02/21/16 02/21/16 02/21/16 10:00 10:35 14:35 Temperature 97.8 F 98 F Pulse Rate 80 94 H 89 Respiratory 18 20 Rate Blood Pressure 160/100 141/78 O2 Sat by Pulse 95 Oximetry (%) 02/21/16 02/21/16 02/22/16 17:00 21:00 01:00 Temperature 97.9 F 98.0 F 97.8 F Pulse Rate 82 86 95 H Respiratory 20 20 20 Rate Blood Pressure 156/102 134/70 127/63 O2 Sat by Pulse 92 L Oximetry (%) 02/22/16 06:00 Temperature 98.0 F Pulse Rate 86 Respiratory 20 Rate Blood Pressure 135/70 O2 Sat by Pulse Oximetry (%) Constitutional: Yes: No Distress Eyes: Yes: WNL HENT: Yes: WNL Neck: Yes: WNL Cardiovascular: Yes: WNL, Pulse Irregular Respiratory: Yes: diffuse exp wheezes. Gastrointestinal: Yes: WNL Edema: trace LE erythema. Labs: CBC, BMP 02/21/16 05:35 02/22/16 05:35 tele: afib, HR controlled CXR: Mild bilateral increased interstitial lung markings, limited evaluation of left lung base (underexposure). Echo 10/2015: Moderately decreased LV function (global). Nl RV size/fn. 1+ MR. mild-mod TR. mild ao dilation. Trivial effusion. echo 02/2016: tds; mod-sev dec lvef, global hk, nl rv, mod kortney, mild-mod tr, rvsp 30-40, ao root 4.5 cm cath 06/2013: 60-70 rpl1, 80-90 d1, subtotal om1 MIBI 08/2014 (pers): no STs; no ischemia seen; predominantly fixed medium-sized inferior/basal inferolat/apico-inferior defect c/w diaphragm attenuation; EF 46% Assessment/Plan a/p: 55 yo with h/o afib with prior ?embolic CVA 05/2014 ([facility]) right visual field cut, syncope 09/19 with ICH at that time vs other entity on MRI and recurrent syncope 12/2015 (unclear etiology), Non-ischemic cardiomyopathy dx 2013 at [facility], HTN, HPL, Rt carotid stenosis, IDDM, RLE cellulitis s/p debridement, MSSA bacteremia 10/2015, DAMIAN not on home cpap, ckd, who presents with sob/RVR. acute systolic HF exacerbation, NICM - Here with vol overload again on IV lasix 80 iv bid, cont same for now, cr improving, sob improving. - Daily standing weights, strict i/o's and daily bmp. 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 Contrast enhancing lesion seen 06/19 and the prior heme on MRI were in same location and was thought to be most likely 2/2 post CVA hemorrhagic conversion (i.e. without hi risk for recurrent ICH). Less likely low-grade glioma, which would have very low risk of bleeding if AC resumed--hence the recs at that time were for usual AC considerations for his afib, no special precautions (pt failed repeatedly to f/u with neuro as outpatient, and then worsening renal fxn made him hi risk for morena when here last time). -warfarin changed to eliquis on past admits due to pt's repeated refusal to f/u with cardiology or have reliable INRs and make rec'd coumadin dose change, with worrisome CHADS-VASC 6 = estimated risk 9-10%/year, and hence concern he will stroke again on warfarin. - Had been switched to heparin drip due to renal function, now back on eliquis to avoid extra volume while diuresing. Con't Eliquis 5 (Has low CrCl but Weight >60kg) - Con't home regimen toprol 150 mg bid, rate controlled on tele. cad: -managed medically, no angina/ACS/ischemia since -Here with borderline elevation in troponin, flat trend, likely not acs, instead due to HF exacerbation and gilles/CKD. - continue home statin, bb, imdur, hydralazine - Con't to defer ASA as pt with stable CAD in past and also on AC (and ? incr'd risk for ICH) R carotid stenosis: -ADRIENNE with PSV in high 200s cm/sec here, suspicious for >70% stenosis per radiology report -vascular surgery c/s on prior admit felt stenosis is at MOST 70% (deferred further imaging with contrast due to low GFR). Recommended deferring CEA unless imaging suggested >80% stenosis, or if he developed symptoms/acute cerebrovascular event. Syncope, ? CVA/TIA (recurrent) - Previously pt had episodes of orthostatic hypotension sec to bp meds and diuretics. - similar symptoms at time of possible hemorrhagic CVA in 2014 (collapsed at home then), see discussion below. - had transient neurologic symptoms (speech disturbance) in 12/2015 but not thought to have had TIA per neuro. - Now with recurrent dizziness, but without neurologic symptoms/deficits. Improved with diuresis. Ao dilation - Con't bb. Routine outpatient surveillance CKD: - prior baseline creat ranged 1.5-2.2. s/p GILLES 10/21--went home with creat 2.8 and in 12/2015 creatine stable around 2.5-2.6, possible new baseline. - continue to monitor with diuresis
[2016-02-22] MEDS: amLODIPine BESYLATE 5 MG TABLET (FP) PO SCH (10:20)
[2016-02-22] MEDS: ISOSORBIDE MONONITRATE 60 MG TAB.SR.24H (FP) PO SCH ×2 (10:20→21:49)
[2016-02-22] MEDS: APIXABAN 5 MG TABLET PO SCH ×2 (10:20→22:20)
[2016-02-22] MEDS: METOPROLOL SUCCINATE 100 MG, METOPROLOL SUCCINATE 50 MG PO SCH ×2 (10:20→21:48)
--- NOTE | 2016-02-22 12:47 | PN ---
Progress Note (short form) - Note Progress Note: Renal Follow up for CKD/Volume Overload Pt seen and examined at the bedside feels better breathing not at baseline yet Vital Signs Temperature 98.2 F 02/22/16 10:00 Pulse Rate 96 H 02/22/16 12:13 Respiratory Rate 16 02/22/16 10:00 Blood Pressure 146/96 02/22/16 10:00 O2 Sat by Pulse Oximetry (%) 96 02/22/16 12:13 Intake & Output 02/19/16 02/20/16 02/21/16 02/22/16 23:59 23:59 23:59 23:59 Intake Total 400 0 Output Total 2250 800 600 Balance -2250 -400 -600 Weight 384 lb 380 lb 9.6 oz 376 lb 369 lb 8 oz Gen: NAD, on NC. Awake and alert CVS: RRR, No M/R Lungs: CTA, no rales or wheeze Abd: Soft NT/ND Ext: 2+ edema in LE, + erythema. No tenderness CBC, BMP 02/21/16 05:35 02/22/16 05:35 Current Medications Acetaminophen (Tylenol -) 650 mg PO Q6H PRN PRN Reason: FEVER OR PAIN Albuterol/Ipratropium (Duoneb -) 1 amp NEB Q4H PRN PRN Reason: SHORTNESS OF BREATH Last Admin: 02/21/16 10:35 Dose: 1 amp Amlodipine Besylate (Norvasc -) 5 mg PO DAILY [facility] Last Admin: 02/22/16 10:20 Dose: 5 mg Apixaban (Eliquis -) 5 mg PO BID [facility] Last Admin: 02/22/16 10:20 Dose: 5 mg Atorvastatin Calcium (Lipitor -) 10 mg PO HS [facility] Last Admin: 02/21/16 22:15 Dose: 10 mg Furosemide (Lasix Injection -) 80 mg IVPUSH BID@0600,1400 [facility] Last Admin: 02/22/16 06:28 Dose: 80 mg Hydralazine HCl (Apresoline -) 100 mg PO TID [facility] Last Admin: 02/22/16 06:28 Dose: 100 mg Insulin Aspart (Novolog Vial) 4 units SQ TIDAC [facility] Last Admin: 02/22/16 12:10 Dose: Not Given Insulin Detemir (Levemir Vial) 28 units SQ [facility] Last Admin: 02/21/16 22:14 Dose: Not Given Isosorbide Mononitrate (Imdur -) 60 mg PO BID [facility] Last Admin: 02/22/16 10:20 Dose: 60 mg Metoprolol Succinate 100 mg/ (Metoprolol Succinate 50 mg) 150 mg PO BID [facility] Last Admin: 02/22/16 10:20 Dose: 150 mg A/P 55 year old Gentleman with PMhx of CKD stage 4, CHF, Hypertension, DM, Intra- cranial hemorrhage, Obstructive sleep apnea who presented with complaints of sob and urinary retention with BUN/Cr of 41/2.9. #Worsening CKD in setting of CHF/DM Renal function stable continue IV lasix BID trend renal function and electrolytes #Acute Systolic HF/Afib continue diuretics as per cardiology no on Eliquis #Hypertension BP acceptable on Imdur, Metoprolol, amlodipine Steven Wyatt DO
--- NOTE | 2016-02-22 19:43 | PN ---
Progress Note, Physician History of Present Illness: stable, no jacome or sob - Current Medication List Current Medications: Active Medications Acetaminophen (Tylenol -) 650 mg PO Q6H PRN PRN Reason: FEVER OR PAIN Albuterol/Ipratropium (Duoneb -) 1 amp NEB Q4H PRN PRN Reason: SHORTNESS OF BREATH Last Admin: 02/21/16 10:35 Dose: 1 amp Amlodipine Besylate (Norvasc -) 5 mg PO DAILY [facility] Last Admin: 02/22/16 10:20 Dose: 5 mg Apixaban (Eliquis -) 5 mg PO BID [facility] Last Admin: 02/22/16 10:20 Dose: 5 mg Atorvastatin Calcium (Lipitor -) 10 mg PO HS [facility] Last Admin: 02/21/16 22:15 Dose: 10 mg Furosemide (Lasix Injection -) 80 mg IVPUSH BID@0600,1400 [facility] Last Admin: 02/22/16 14:50 Dose: 80 mg Hydralazine HCl (Apresoline -) 100 mg PO TID [facility] Last Admin: 02/22/16 14:50 Dose: 100 mg Insulin Aspart (Novolog Vial) 4 units SQ TIDAC [facility] Last Admin: 02/22/16 17:17 Dose: Not Given Insulin Detemir (Levemir Vial) 28 units SQ [facility] Last Admin: 02/21/16 22:14 Dose: Not Given Isosorbide Mononitrate (Imdur -) 60 mg PO BID [facility] Last Admin: 02/22/16 10:20 Dose: 60 mg Metoprolol Succinate 100 mg/ (Metoprolol Succinate 50 mg) 150 mg PO BID [facility] Last Admin: 02/22/16 10:20 Dose: 150 mg - Objective Vital Signs: Vital Signs Temperature 97.5 F L 02/22/16 14:00 Pulse Rate 97 H 02/22/16 15:30 Respiratory Rate 18 02/22/16 14:00 Blood Pressure 155/87 02/22/16 15:30 O2 Sat by Pulse Oximetry (%) 97 02/22/16 15:00 Constitutional: Yes: No Distress HENT: Yes: Atraumatic Cardiovascular: Yes: Regular Rate and Rhythm Respiratory: Yes: CTA Bilaterally Gastrointestinal: Yes: Normal Bowel Sounds Extremities: Yes: WNL Neurological: Yes: Alert, Oriented Labs: CBC, BMP 02/21/16 05:35 02/22/16 05:35 INR, PTT INR 1.47 (0.82-1.09) H 02/15/16 23:00 Problem List - Problems (1) CHF (congestive heart failure) Code(s): I50.9 - HEART FAILURE, UNSPECIFIED Qualifiers: Congestive heart failure type: unspecified congestive heart failure type Congestive heart failure chronicity: acute on chronic Qualified Code(s ): I50.9 - Heart failure, unspecified (2) Hyperlipemia Code(s): E78.5 - HYPERLIPIDEMIA, UNSPECIFIED (3) Uncontrolled diabetes mellitus Code(s): E11.65 - TYPE 2 DIABETES MELLITUS WITH HYPERGLYCEMIA (5) Acute on chronic renal failure Code(s): N17.9 - ACUTE KIDNEY FAILURE, UNSPECIFIED N18.9 - CHRONIC KIDNEY DISEASE, UNSPECIFIED Assessment/Plan 1.chf on diuretics and cardiac meds 2.uncontrolled dm on insulin will check hgba1c 3.afib on iv heparin 4.ckd monitor renal function..cr better today 5.htn 6.morbid obesity [place] on bipap at night sob resolved, pt clinically better
[2016-02-22] MEDS ORDERED: PT OWN MED DRAWER 7, Y5N ONE (21:11)
[2016-02-22] MEDS: INSULIN DETEMIR 100 UNITS/ML MDV SQ SCH (21:29)
[2016-02-22] MEDS: ATORVASTATIN CA 10 MG TABLET (FP) PO SCH (21:49)
[2016-02-23] MEDS: FUROSEMIDE 40 MG/4 ML INJECTABLE VIAL IVPUSH SCH ×2 (06:01→15:14)
[2016-02-23] MEDS: hydrALAZINE HCL 50 MG TABLET (FP) PO SCH ×3 (06:01→21:41)
[2016-02-23] MEDS: INSULIN (NOVOLOG) ASPART 100 UNITS/ML 10ML VIAL SQ SCH ×3 (06:12→17:54)
[2016-02-23 08:00] LABS: CALCIUM 8.4 mg/dL (8.5-10.1); MAGNESIUM 2.2 mg/dL (1.8-2.4)
[2016-02-23 08:01] LABS: CREATININE 2.9 mg/dL (0.7-1.3)
[2016-02-23] MEDS ORDERED: METOPROLOL SUCCINATE 50 MG TAB.SR.24H (FP) ONE ×2 (10:53→21:07)
[2016-02-23] MEDS ORDERED: METOPROLOL SUCCINATE 100 MG TAB.SR.24H (FP) PO ONE ×2 (10:53→21:07)
[2016-02-23] MEDS ORDERED: PT OWN MED DRAWER 7, Y5N ONE ×2 (10:53→21:08)
[2016-02-23] MEDS: ISOSORBIDE MONONITRATE 60 MG TAB.SR.24H (FP) PO SCH ×2 (10:55→21:42)
[2016-02-23] MEDS: METOPROLOL SUCCINATE 100 MG, METOPROLOL SUCCINATE 50 MG PO SCH ×2 (10:55→21:42)
[2016-02-23] MEDS: amLODIPine BESYLATE 5 MG TABLET (FP) PO SCH (10:55)
[2016-02-23] MEDS: APIXABAN 5 MG TABLET PO SCH ×2 (10:56→21:41)
--- NOTE | 2016-02-23 12:00 | PN ---
Progress Note (short form) - Note Progress Note: s: sob and le edema improving. no cp palps dizzy o: Vital Signs Period Temp Pulse Resp BP Sys/Perez Pulse Ox Last 24 Hr 97.2 F-97.9 F 84-100 18-20 127-155/68-114 93-97 Constitutional: Yes: No Distress, Obese Eyes: No: Sclera Icterus Respiratory: Yes: bibasilar rales. No: Accessory Muscle Use Gastrointestinal: Yes: Normal Bowel Sounds. obese No: Distention, Hepatomegaly, Palpable Mass, tenderness Cardiovascular: Yes: Irregular Rate and Rhythm JVD: tds Heart Sounds: Yes: nl, S1, S2. No: Gallop Murmur: No: Systolic Murmur, Diastolic Murmur Extremities: erythema and skin excoriations Edema: trace LE, erythema and edema Integumentary: No: Jaundice diaphoresis Neurological: Yes: Alert, Oriented (x3) Psychiatric: No: Agitated Current Medications Generic Name Dose Route Start Last Admin Trade Name Freq PRN Reason Stop Dose Admin Acetaminophen 650 mg 02/15/16 02:20 Tylenol - PO Q6H PRN FEVER OR PAIN Albuterol/Ipratropium 1 amp 02/15/16 02:22 02/21/16 10:35 Duoneb - NEB 1 amp Q4H PRN Administration SHORTNESS OF BREATH Amlodipine Besylate 5 mg 02/15/16 10:00 02/23/16 10:55 Norvasc - PO 5 mg DAILY [facility] Administration Apixaban 5 mg 02/18/16 12:00 02/23/16 10:56 Eliquis - PO 5 mg BID [facility] Administration Atorvastatin Calcium 10 mg 02/15/16 22:00 02/22/16 21:49 Lipitor - PO 10 mg HS [facility] Administration Furosemide 80 mg 02/15/16 14:00 02/23/16 06:01 Lasix Injection - IVPUSH 80 mg BID@0600,1400 [facility] Administration Hydralazine HCl 100 mg 02/15/16 06:00 02/23/16 06:01 Apresoline - PO 100 mg TID [facility] Administration Insulin Aspart 4 units 02/15/16 07:00 02/23/16 06:12 Novolog Vial SQ Not Given TIDAC [facility] Insulin Detemir 28 units 02/15/16 22:02/22/16 21:29 Levemir Vial SQ Not Given HS [facility] Isosorbide Mononitrate 60 mg 02/15/16 10:00 02/23/16 10:55 Imdur - PO 60 mg BID [facility] Administration Metoprolol Succinate 100 mg/ 150 mg 02/15/16 10:00 02/23/16 10:55 Metoprolol Succinate 50 mg PO 150 mg BID [facility] Administration CBC, BMP 02/21/16 05:35 02/23/16 05:35 Echo 10/2015: Moderately decreased LV function (global). Nl RV size/fn. 1+ MR. mild-mod TR. mild ao dilation. Trivial effusion. echo 02/2016: tds; mod-sev dec lvef, global hk, nl rv, mod kortney, mild-mod tr, rvsp 30-40, ao root 4.5 cm cath 06/2013: 60-70 rpl1, 80-90 d1, subtotal om1 MIBI 08/2014 (pers): no STs; no ischemia seen; predominantly fixed medium-sized inferior/basal inferolat/apico-inferior defect c/w diaphragm attenuation; EF 46% a/p: 55 yo with h/o afib with prior ?embolic CVA 05/2014 ([facility]) right visual field cut, syncope 09/19 with ICH at that time vs other entity on MRI and recurrent syncope 12/2015 (unclear etiology), Non-ischemic cardiomyopathy dx 2013 at [facility], HTN, HPL, Rt carotid stenosis, IDDM, RLE cellulitis s/p debridement, MSSA bacteremia 10/2015, DAMIAN not on home cpap, ckd, who presents with sob/RVR. acute systolic HF exacerbation, NICM - Here with vol overload, on IV lasix 80 iv bid, cont same for now, wt improving , sob improving, cr stable - Daily standing weights, strict i/o's and daily bmp. 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 Contrast enhancing lesion seen 06/19 and the prior heme on MRI were in same location and was thought to be most likely 2/2 post CVA hemorrhagic conversion (i.e. without hi risk for recurrent ICH). Less likely low-grade glioma, which would have very low risk of bleeding if AC resumed--hence the recs at that time were for usual AC considerations for his afib, no special precautions (pt failed repeatedly to f/u with neuro as outpatient, and then worsening renal fxn made him hi risk for morena when here last time). -warfarin changed to eliquis on past admits due to pt's repeated refusal to f/u with cardiology or have reliable INRs and make rec'd coumadin dose change, with worrisome CHADS-VASC 6 = estimated risk 9-10%/year, and hence concern he will stroke again on warfarin. - Had been switched to heparin drip due to renal function, now back on eliquis to avoid extra volume while diuresing. Con't Eliquis 5 (Has low CrCl but Weight >60kg) - Con't home regimen toprol 150 mg bid, rate controlled cad: -managed medically, no angina/ACS/ischemia since -Here with borderline elevation in troponin, flat trend, likely not acs, instead due to HF exacerbation and gilles/CKD. - continue home statin, bb, imdur, hydralazine - Con't to defer ASA as pt with stable CAD in past and also on AC (and ? incr'd risk for ICH) R carotid stenosis: -ADRIENNE with PSV in high 200s cm/sec here, suspicious for >70% stenosis per radiology report -vascular surgery c/s on prior admit felt stenosis is at MOST 70% (deferred further imaging with contrast due to low GFR). Recommended deferring CEA unless imaging suggested >80% stenosis, or if he developed symptoms/acute cerebrovascular event. Syncope, ? CVA/TIA (recurrent) - Previously pt had episodes of orthostatic hypotension sec to bp meds and diuretics. - similar symptoms at time of possible hemorrhagic CVA in 2014 (collapsed at home then), see discussion below. - had transient neurologic symptoms (speech disturbance) in 12/2015 but not thought to have had TIA per neuro. - Now with recurrent dizziness, but without neurologic symptoms/deficits. Improved with diuresis. Ao dilation - Con't bb. Routine outpatient surveillance CKD: - prior baseline creat ranged 1.5-2.2. s/p GILLES 10/21--went home with creat 2.8 and in 12/2015 creatine stable around 2.5-2.6, possible new baseline. - continue to monitor with diuresis
--- NOTE | 2016-02-23 13:26 | PN ---
Progress Note (short form) - Note Progress Note: Renal Follow up for CKD/Volume Overload Pt seen and examined at the bedside no complaints reports some wheezing no [place]DERON Vital Signs Temperature 97.2 F L 02/23/16 05:02 Pulse Rate 84 02/23/16 10:26 Respiratory Rate 20 02/23/16 05:02 Blood Pressure 143/93 02/23/16 05:02 O2 Sat by Pulse Oximetry (%) 93 L 02/23/16 10:44 Intake & Output 02/20/16 02/21/16 02/22/16 02/23/16 23:59 23:59 23:59 23:59 Intake Total 400 240 50 Output Total 2250 800 600 300 Balance -2250 -400 -360 -250 Weight 380 lb 9.6 oz 376 lb 369 lb 8 oz 359 lb 6 oz Gen: NAD, on NC. Awake and alert CVS: RRR, No M/R Lungs: CTA, no rales or wheeze Abd: Soft NT/ND Ext: 1+ edema in LE, + erythema. No tenderness CBC, BMP 02/21/16 05:35 02/23/16 05:35 Current Medications Acetaminophen (Tylenol -) 650 mg PO Q6H PRN PRN Reason: FEVER OR PAIN Albuterol/Ipratropium (Duoneb -) 1 amp NEB Q4H PRN PRN Reason: SHORTNESS OF BREATH Last Admin: 02/21/16 10:35 Dose: 1 amp Amlodipine Besylate (Norvasc -) 5 mg PO DAILY [facility] Last Admin: 02/23/16 10:55 Dose: 5 mg Apixaban (Eliquis -) 5 mg PO BID [facility] Last Admin: 02/23/16 10:56 Dose: 5 mg Atorvastatin Calcium (Lipitor -) 10 mg PO HS [facility] Last Admin: 02/22/16 21:49 Dose: 10 mg Furosemide (Lasix Injection -) 80 mg IVPUSH BID@0600,1400 [facility] Last Admin: 02/23/16 06:01 Dose: 80 mg Hydralazine HCl (Apresoline -) 100 mg PO TID [facility] Last Admin: 02/23/16 06:01 Dose: 100 mg Insulin Aspart (Novolog Vial) 4 units SQ TIDAC [facility] Last Admin: 02/23/16 06:12 Dose: Not Given Insulin Detemir (Levemir Vial) 28 units SQ [facility] Last Admin: 02/22/16 21:29 Dose: Not Given Isosorbide Mononitrate (Imdur -) 60 mg PO BID [facility] Last Admin: 02/23/16 10:55 Dose: 60 mg Metoprolol Succinate 100 mg/ (Metoprolol Succinate 50 mg) 150 mg PO BID [facility] Last Admin: 02/23/16 10:55 Dose: 150 mg A/P 55 year old Gentleman with PMhx of CKD stage 4, CHF, Hypertension, DM, Intra- cranial hemorrhage, Obstructive sleep apnea who presented with complaints of sob and urinary retention with BUN/Cr of 41/2.9. #CKD in setting of CHF/DM with nephrotic proteinuria Renal function stable while on IV diuretics ANNETTA negative, SPEP negative for M-spike continue lasix as per cardiology continue to trend renal function and electrolytes can consider addition of DENISSE and ARB once of IV lasix #Acute Systolic HF/Afib continue diuretics as per cardiology no on Eliquis #Hypertension BP acceptable on Imdur, Metoprolol, amlodipine Steven Wyatt DO
[2016-02-23 14:16] LABS: GAMMA GLOBULIN % 22.4 % (.); M-SPIKE, % Not Observed % (Not Observed)
[2016-02-23] MEDS ORDERED: INSULIN (NOVOLOG) ASPART 100 UNITS/ML 10ML VIAL ONE (17:52)
--- NOTE | 2016-02-23 18:22 | PN ---
Progress Note, Physician History of Present Illness: stable, no jacome or sob - Current Medication List Current Medications: Active Medications Acetaminophen (Tylenol -) 650 mg PO Q6H PRN PRN Reason: FEVER OR PAIN Albuterol/Ipratropium (Duoneb -) 1 amp NEB Q4H PRN PRN Reason: SHORTNESS OF BREATH Last Admin: 02/21/16 10:35 Dose: 1 amp Amlodipine Besylate (Norvasc -) 5 mg PO DAILY [facility] Last Admin: 02/23/16 10:55 Dose: 5 mg Apixaban (Eliquis -) 5 mg PO BID [facility] Last Admin: 02/23/16 10:56 Dose: 5 mg Atorvastatin Calcium (Lipitor -) 10 mg PO HS [facility] Last Admin: 02/22/16 21:49 Dose: 10 mg Furosemide (Lasix Injection -) 80 mg IVPUSH BID@0600,1400 [facility] Last Admin: 02/23/16 15:14 Dose: 80 mg Hydralazine HCl (Apresoline -) 100 mg PO TID [facility] Last Admin: 02/23/16 15:08 Dose: 100 mg Insulin Aspart (Novolog Vial) 4 units SQ TIDAC [facility] Last Admin: 02/23/16 17:54 Dose: 4 units Insulin Detemir (Levemir Vial) 28 units SQ [facility] Last Admin: 02/22/16 21:29 Dose: Not Given Isosorbide Mononitrate (Imdur -) 60 mg PO BID [facility] Last Admin: 02/23/16 10:55 Dose: 60 mg Metoprolol Succinate 100 mg/ (Metoprolol Succinate 50 mg) 150 mg PO BID [facility] Last Admin: 02/23/16 10:55 Dose: 150 mg - Objective Vital Signs: Vital Signs Temperature 98.7 F 02/23/16 18:10 Pulse Rate 85 02/23/16 18:10 Respiratory Rate 20 02/23/16 18:10 Blood Pressure 107/61 02/23/16 18:10 O2 Sat by Pulse Oximetry (%) 92 L 02/23/16 18:08 Constitutional: Yes: No Distress Eyes: Yes: Occular Prosthesis Neck: Yes: Supple Cardiovascular: Yes: Regular Rate and Rhythm Respiratory: Yes: Rhonchi Gastrointestinal: Yes: Normal Bowel Sounds Extremities: Yes: WNL Neurological: Yes: Alert, Oriented Labs: CBC, BMP 02/21/16 05:35 02/23/16 05:35 INR, PTT INR 1.47 (0.82-1.09) H 02/15/16 23:00 Problem List - Problems (1) CHF (congestive heart failure) Code(s): I50.9 - HEART FAILURE, UNSPECIFIED Qualifiers: Congestive heart failure type: unspecified congestive heart failure type Congestive heart failure chronicity: acute on chronic Qualified Code(s ): I50.9 - Heart failure, unspecified (2) Hyperlipemia Code(s): E78.5 - HYPERLIPIDEMIA, UNSPECIFIED (3) Uncontrolled diabetes mellitus Code(s): E11.65 - TYPE 2 DIABETES MELLITUS WITH HYPERGLYCEMIA (5) Acute on chronic renal failure Code(s): N17.9 - ACUTE KIDNEY FAILURE, UNSPECIFIED N18.9 - CHRONIC KIDNEY DISEASE, UNSPECIFIED Assessment/Plan 1.chf on diuretics and cardiac meds 2.uncontrolled dm on insulin will check hgba1c 3.afib on iv heparin 4.ckd monitor renal function..cr better today 5.htn 6.morbid obesity [place] on bipap at night sob resolved, pt clinically better DC PLANNING NEED TO IF WE CAN SWITCH HIM TO PO DIURETIC AND DC HOME
[2016-02-23] MEDS: ATORVASTATIN CA 10 MG TABLET (FP) PO SCH (21:42)
[2016-02-23] MEDS: INSULIN DETEMIR 100 UNITS/ML MDV SQ SCH (21:43)
[2016-02-24] MEDS: FUROSEMIDE 40 MG/4 ML INJECTABLE VIAL IVPUSH SCH ×2 (06:24→14:53)
[2016-02-24] MEDS: hydrALAZINE HCL 50 MG TABLET (FP) PO SCH ×3 (06:26→22:23)
[2016-02-24] MEDS: INSULIN (NOVOLOG) ASPART 100 UNITS/ML 10ML VIAL SQ SCH ×3 (06:27→17:40)
[2016-02-24 07:19] LABS: BASOPHIL 0.8 % (0-2.0); EOSINOPHIL 3.5 % (0-4.5); MCH 27.8 pg (25.7-33.7); MCHC 32.1 g/dl (32.0-35.9); MEAN CELL VOLUME 86.6 fl (80-96); MEAN PLT VOLUME 8.8 fl (7.5-11.1); NEUTROPHILS 72.4 % (42.8-82.8); PLATELET COUNT 250 K/MM3 (134-434); RDW 17.5 % (11.9-15.9); WHITE BLOOD COUNT 11.5 K/mm3 (4.0-10.0)
[2016-02-24 07:39] LABS: CALCIUM 8.4 mg/dL (8.5-10.1); CREATININE 2.7 mg/dL (0.7-1.3); MAGNESIUM 2.2 mg/dL (1.8-2.4); PHOSPHOROUS 3.5 mg/dL (2.5-4.9)
[2016-02-24] MEDS ORDERED: METOPROLOL SUCCINATE 100 MG TAB.SR.24H (FP) PO ONE ×2 (09:27→20:39)
[2016-02-24] MEDS ORDERED: METOPROLOL SUCCINATE 50 MG TAB.SR.24H (FP) ONE ×2 (09:27→20:39)
[2016-02-24] MEDS: METOPROLOL SUCCINATE 100 MG, METOPROLOL SUCCINATE 50 MG PO SCH ×2 (09:36→22:23)
[2016-02-24] MEDS: ISOSORBIDE MONONITRATE 60 MG TAB.SR.24H (FP) PO SCH ×2 (09:37→22:22)
[2016-02-24] MEDS: amLODIPine BESYLATE 5 MG TABLET (FP) PO SCH (09:37)
[2016-02-24] MEDS: APIXABAN 5 MG TABLET PO SCH ×2 (09:37→22:22)
--- NOTE | 2016-02-24 11:17 | PN ---
Progress Note (short form) - Note Progress Note: s: sob and le edema improving. no cp palps dizzy o: Vital Signs Period Temp Pulse Resp BP Sys/Perez Pulse Ox Last 24 Hr 98.1 F-98.8 F 83-96 20-20 107-142/61-77 90-93 Constitutional: Yes: No Distress, Obese Eyes: No: Sclera Icterus Respiratory: Yes: bibasilar rales. No: Accessory Muscle Use Gastrointestinal: Yes: Normal Bowel Sounds. obese No: Distention, Hepatomegaly, Palpable Mass, tenderness Cardiovascular: Yes: Irregular Rate and Rhythm JVD: tds Heart Sounds: Yes: nl, S1, S2. No: Gallop Murmur: No: Systolic Murmur, Diastolic Murmur Extremities: erythema and skin excoriations Edema: trace LE, erythema and edema Integumentary: No: Jaundice diaphoresis Neurological: Yes: Alert, Oriented (x3) Psychiatric: No: Agitated Current Medications Generic Name Dose Route Start Last Admin Trade Name Freq PRN Reason Stop Dose Admin Acetaminophen 650 mg 02/15/16 02:20 Tylenol - PO Q6H PRN FEVER OR PAIN Albuterol/Ipratropium 1 amp 02/15/16 02:22 02/21/16 10:35 Duoneb - NEB 1 amp Q4H PRN Administration SHORTNESS OF BREATH Amlodipine Besylate 5 mg 02/15/16 10:00 02/24/16 09:37 Norvasc - PO 5 mg DAILY ANURADHA Administration Apixaban 5 mg 02/18/16 12:00 02/24/16 09:37 Eliquis - PO 5 mg BID ANURADHA Administration Atorvastatin Calcium 10 mg 02/15/16 22:00 02/23/16 21:42 Lipitor - PO 10 mg HS ANURADHA Administration Furosemide 80 mg 02/15/16 14:00 02/24/16 06:24 Lasix Injection - IVPUSH 80 mg BID@0600,1400 ANURADHA Administration Hydralazine HCl 100 mg 02/15/16 06:00 02/24/16 06:26 Apresoline - PO 100 mg TID ANURADHA Administration Insulin Aspart 4 units 02/15/16 07:00 02/24/16 06:27 Novolog Vial SQ Not Given TIDAC [facility] Insulin Detemir 28 units 02/15/16 22:00 02/23/16 21:43 Levemir Vial SQ Not Given HS ANURADHA Isosorbide Mononitrate 60 mg 02/15/16 10:00 02/24/16 09:37 Imdur - PO 60 mg BID ANURADHA Administration Metoprolol Succinate 100 mg/ 150 mg 02/15/16 10:00 02/24/16 09:36 Metoprolol Succinate 50 mg PO 150 mg BID ANURADHA Administration CBC, BMP 02/24/16 06:00 02/24/16 06:00 Echo 10/2015: Moderately decreased LV function (global). Nl RV size/fn. 1+ MR. mild-mod TR. mild ao dilation. Trivial effusion. echo 02/2016: tds; mod-sev dec lvef, global hk, nl rv, mod kortney, mild-mod tr, rvsp 30-40, ao root 4.5 cm cath 06/2013: 60-70 rpl1, 80-90 d1, subtotal om1 MIBI 08/2014 (pers): no STs; no ischemia seen; predominantly fixed medium-sized inferior/basal inferolat/apico-inferior defect c/w diaphragm attenuation; EF 46% a/p: 55 yo with h/o afib with prior ?embolic CVA 05/2014 ([facility]) right visual field cut, syncope 09/19 with ICH at that time vs other entity on MRI and recurrent syncope 12/2015 (unclear etiology), Non-ischemic cardiomyopathy dx 2013 at [facility], HTN, HPL, Rt carotid stenosis, IDDM, RLE cellulitis s/p debridement, MSSA bacteremia 10/2015, DAMIAN not on home cpap, ckd, who presents with sob/RVR. acute systolic HF exacerbation, NICM - Here with vol overload, on IV lasix 80 iv bid, cont same for now, wt improving , sob improving, cr stable. Appears to be approaching baseline wt, if wt w/o sig change tomorrow will change to po diuretic. - Daily standing weights, strict i/o's and daily bmp. 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 Contrast enhancing lesion seen 06/19 and the prior heme on MRI were in same location and was thought to be most likely 2/2 post CVA hemorrhagic conversion (i.e. without hi risk for recurrent ICH). Less likely low-grade glioma, which would have very low risk of bleeding if AC resumed--hence the recs at that time were for usual AC considerations for his afib, no special precautions (pt failed repeatedly to f/u with neuro as outpatient, and then worsening renal fxn made him hi risk for morena when here last time). -warfarin changed to eliquis on past admits due to pt's repeated refusal to f/u with cardiology or have reliable INRs and make rec'd coumadin dose change, with worrisome CHADS-VASC 6 = estimated risk 9-10%/year, and hence concern he will stroke again on warfarin. - Had been switched to heparin drip due to renal function, now back on eliquis to avoid extra volume while diuresing. Con't Eliquis 5 (Has low CrCl but Weight >60kg) - Con't home regimen toprol 150 mg bid, rate controlled cad: -managed medically, no angina/ACS/ischemia since -Here with borderline elevation in troponin, flat trend, likely not acs, instead due to HF exacerbation and gilles/CKD. - continue home statin, bb, imdur, hydralazine - Con't to defer ASA as pt with stable CAD in past and also on AC (and ? incr'd risk for ICH) R carotid stenosis: -ADRIENNE with PSV in high 200s cm/sec here, suspicious for >70% stenosis per radiology report -vascular surgery c/s on prior admit felt stenosis is at MOST 70% (deferred further imaging with contrast due to low GFR). Recommended deferring CEA unless imaging suggested >80% stenosis, or if he developed symptoms/acute cerebrovascular event. Syncope, ? CVA/TIA (recurrent) - Previously pt had episodes of orthostatic hypotension sec to bp meds and diuretics. - similar symptoms at time of possible hemorrhagic CVA in 2014 (collapsed at home then), see discussion below. - had transient neurologic symptoms (speech disturbance) in 12/2015 but not thought to have had TIA per neuro. - Now with recurrent dizziness, but without neurologic symptoms/deficits. Improved with diuresis. Ao dilation - Con't bb. Routine outpatient surveillance CKD: - prior baseline creat ranged 1.5-2.2. s/p GILLES 10/21--went home with creat 2.8 and in 12/2015 creatine stable around 2.5-2.6, possible new baseline. - continue to monitor with diuresis
--- NOTE | 2016-02-24 14:42 | PN ---
Progress Note (short form) - Note Progress Note: Renal Follow up for CKD/Volume Overload Pt seen and examined at the bedside no complaints denies any sob or chest pain Vital Signs Temperature 98.8 F 02/24/16 09:40 Pulse Rate 83 02/24/16 10:30 Respiratory Rate 20 02/24/16 09:40 Blood Pressure 115/71 02/24/16 09:40 O2 Sat by Pulse Oximetry (%) 93 L 02/24/16 10:30 Intake & Output 02/21/16 02/22/16 02/23/16 02/24/16 23:59 23:59 23:59 23:59 Intake Total 400 240 570 50 Output Total 800 600 300 Balance -400 -360 270 50 Weight 376 lb 369 lb 8 oz 359 lb 6 oz 359 lb 14.4 oz Gen: NAD, on NC. Awake and alert CVS: RRR, No M/R Lungs: CTA, no rales or wheeze Abd: Soft NT/ND Ext: 1+ edema in LE, + erythema. No tenderness CBC, BMP 02/24/16 06:00 02/24/16 06:00 Current Medications Acetaminophen (Tylenol -) 650 mg PO Q6H PRN PRN Reason: FEVER OR PAIN Albuterol/Ipratropium (Duoneb -) 1 amp NEB Q4H PRN PRN Reason: SHORTNESS OF BREATH Last Admin: 02/21/16 10:35 Dose: 1 amp Amlodipine Besylate (Norvasc -) 5 mg PO DAILY [facility] Last Admin: 02/24/16 09:37 Dose: 5 mg Apixaban (Eliquis -) 5 mg PO BID [facility] Last Admin: 02/24/16 09:37 Dose: 5 mg Atorvastatin Calcium (Lipitor -) 10 mg PO HS [facility] Last Admin: 02/23/16 21:42 Dose: 10 mg Furosemide (Lasix Injection -) 80 mg IVPUSH BID@0600,1400 [facility] Last Admin: 02/24/16 06:24 Dose: 80 mg Hydralazine HCl (Apresoline -) 100 mg PO TID [facility] Last Admin: 02/24/16 06:26 Dose: 100 mg Insulin Aspart (Novolog Vial) 4 units SQ TIDAC [facility] Last Admin: 02/24/16 12:06 Dose: 4 units Insulin Detemir (Levemir Vial) 28 units SQ HS [facility] Last Admin: 02/23/16 21:43 Dose: Not Given Isosorbide Mononitrate (Imdur -) 60 mg PO BID [facility] Last Admin: 02/24/16 09:37 Dose: 60 mg Metoprolol Succinate 100 mg/ (Metoprolol Succinate 50 mg) 150 mg PO BID [facility] Last Admin: 02/24/16 09:36 Dose: 150 mg A/P 55 year old Gentleman with PMhx of CKD stage 4, CHF, Hypertension, DM, Intra- cranial hemorrhage, Obstructive sleep apnea who presented with complaints of sob and urinary retention with BUN/Cr of 41/2.9. #CKD in setting of CHF/DM with nephrotic proteinuria Renal function stable/slighly improved volume status much improved and weight is stable over the past 48 hours can resume Torsemide 60mg Daily (home dose) ANNETTA negative, No m-spike noted on SPEP Proteinuria likely due to Diabetic Nephropathy would benefit form DENISSE/ARB if renal function stable can reacess as outpatient #Acute Systolic HF/Afib consider changing diuretics to Torsemide 60mg Daily #Hypertension BP acceptable on Imdur, Metoprolol, amlodipine Pt to follow up in our office for management of ckd as outpatient Steven Wyatt DO
--- NOTE | 2016-02-24 16:28 | PN ---
Progress Note, Physician History of Present Illness: feeling good - Current Medication List Current Medications: Active Medications Acetaminophen (Tylenol -) 650 mg PO Q6H PRN PRN Reason: FEVER OR PAIN Albuterol/Ipratropium (Duoneb -) 1 amp NEB Q4H PRN PRN Reason: SHORTNESS OF BREATH Last Admin: 02/21/16 10:35 Dose: 1 amp Amlodipine Besylate (Norvasc -) 5 mg PO DAILY [facility] Last Admin: 02/24/16 09:37 Dose: 5 mg Apixaban (Eliquis -) 5 mg PO BID [facility] Last Admin: 02/24/16 09:37 Dose: 5 mg Atorvastatin Calcium (Lipitor -) 10 mg PO HS [facility] Last Admin: 02/23/16 21:42 Dose: 10 mg Furosemide (Lasix Injection -) 80 mg IVPUSH BID@0600,1400 [facility] Last Admin: 02/24/16 14:53 Dose: 80 mg Hydralazine HCl (Apresoline -) 100 mg PO TID [facility] Last Admin: 02/24/16 14:53 Dose: 100 mg Insulin Aspart (Novolog Vial) 4 units SQ TIDAC [facility] Last Admin: 02/24/16 12:06 Dose: 4 units Insulin Detemir (Levemir Vial) 28 units SQ [facility] Last Admin: 02/23/16 21:43 Dose: Not Given Isosorbide Mononitrate (Imdur -) 60 mg PO BID [facility] Last Admin: 02/24/16 09:37 Dose: 60 mg Metoprolol Succinate 100 mg/ (Metoprolol Succinate 50 mg) 150 mg PO BID [facility] Last Admin: 02/24/16 09:36 Dose: 150 mg - Objective Vital Signs: Vital Signs Temperature 98.4 F 02/24/16 14:55 Pulse Rate 77 02/24/16 14:55 Respiratory Rate 20 02/24/16 14:55 Blood Pressure 140/68 02/24/16 14:55 O2 Sat by Pulse Oximetry (%) 93 L 02/24/16 10:30 Constitutional: Yes: No Distress HENT: Yes: Atraumatic Neck: Yes: Supple Cardiovascular: Yes: Regular Rate and Rhythm Respiratory: Yes: CTA Bilaterally Gastrointestinal: Yes: Normal Bowel Sounds Extremities: Yes: WNL Neurological: Yes: Alert, Oriented Labs: CBC, BMP 02/24/16 06:00 02/24/16 06:00 INR, PTT INR 1.47 (0.82-1.09) H 02/15/16 23:00 Problem List - Problems (1) CHF (congestive heart failure) Code(s): I50.9 - HEART FAILURE, UNSPECIFIED Qualifiers: Congestive heart failure type: unspecified congestive heart failure type Congestive heart failure chronicity: acute on chronic Qualified Code(s ): I50.9 - Heart failure, unspecified (2) Hyperlipemia Code(s): E78.5 - HYPERLIPIDEMIA, UNSPECIFIED (3) Uncontrolled diabetes mellitus Code(s): E11.65 - TYPE 2 DIABETES MELLITUS WITH HYPERGLYCEMIA (5) Acute on chronic renal failure Code(s): N17.9 - ACUTE KIDNEY FAILURE, UNSPECIFIED N18.9 - CHRONIC KIDNEY DISEASE, UNSPECIFIED Assessment/Plan 1.chf on diuretics and cardiac meds 2.uncontrolled dm on insulin will check hgba1c 3.afib on iv heparin 4.ckd monitor renal function..cr better today 5.htn 6.morbid obesity [place] on bipap at night sob resolved, pt clinically better DC PLANNING NEED TO KNOW IF WE CAN SWITCH HIM TO PO DIURETIC AND DC HOME
[2016-02-24] MEDS: ATORVASTATIN CA 10 MG TABLET (FP) PO SCH (22:21)
[2016-02-24] MEDS: INSULIN DETEMIR 100 UNITS/ML MDV SQ SCH (22:24)
[2016-02-25] MEDS: hydrALAZINE HCL 50 MG TABLET (FP) PO SCH ×2 (06:00→14:51)
[2016-02-25] MEDS: INSULIN (NOVOLOG) ASPART 100 UNITS/ML 10ML VIAL SQ SCH ×3 (06:10→12:28)
[2016-02-25] MEDS ORDERED: METOPROLOL SUCCINATE 50 MG TAB.SR.24H (FP) ONE (09:36)
[2016-02-25] MEDS ORDERED: METOPROLOL SUCCINATE 100 MG TAB.SR.24H (FP) PO ONE (09:36)
[2016-02-25] MEDS: APIXABAN 5 MG TABLET PO SCH (09:43)
[2016-02-25] MEDS: amLODIPine BESYLATE 5 MG TABLET (FP) PO SCH (09:44)
[2016-02-25] MEDS: METOPROLOL SUCCINATE 100 MG, METOPROLOL SUCCINATE 50 MG PO SCH (09:44)
[2016-02-25] MEDS: ISOSORBIDE MONONITRATE 60 MG TAB.SR.24H (FP) PO SCH (09:45)
[2016-02-25] MEDS ORDERED: TORSEMIDE 20 MG TABLET (FP) PO SCH (10:00)
--- NOTE | 2016-02-25 12:04 | PN ---
Progress Note (short form) - Note Progress Note: s: no cp palps dizzy sob; feels at baseline, ready to go home o: Vital Signs Period Temp Pulse Resp BP Sys/Perez Pulse Ox Last 24 Hr 98.2 F-98.7 F 77-91 20-20 116-152/63-92 93-97 Constitutional: Yes: No Distress, Obese Eyes: No: Sclera Icterus Respiratory: Yes: bibasilar rales. No: Accessory Muscle Use Gastrointestinal: Yes: Normal Bowel Sounds. obese No: Distention, Hepatomegaly, Palpable Mass, tenderness Cardiovascular: Yes: Irregular Rate and Rhythm JVD: tds Heart Sounds: Yes: nl, S1, S2. No: Gallop Murmur: No: Systolic Murmur, Diastolic Murmur Extremities: erythema and skin excoriations Edema: no le edema Integumentary: No: Jaundice diaphoresis Neurological: Yes: Alert, Oriented (x3) Psychiatric: No: Agitated Current Medications Generic Name Dose Route Start Last Admin Trade Name Freq PRN Reason Stop Dose Admin Acetaminophen 650 mg 02/15/16 02:20 Tylenol - PO Q6H PRN FEVER OR PAIN Albuterol/Ipratropium 1 amp 02/15/16 02:22 02/21/16 10:35 Duoneb - NEB 1 amp Q4H PRN Administration SHORTNESS OF BREATH Amlodipine Besylate 5 mg 02/15/16 10:00 02/25/16 09:44 Norvasc - PO 5 mg DAILY ANURADHA Administration Apixaban 5 mg 02/18/16 12:00 02/25/16 09:43 Eliquis - PO 5 mg BID ANURADHA Administration Atorvastatin Calcium 10 mg 02/15/16 22:00 02/24/16 22:21 Lipitor - PO 10 mg HS ANURADHA Administration Hydralazine HCl 100 mg 02/15/16 06:00 02/25/16 06:00 Apresoline - PO 100 mg TID ANURADHA Administration Insulin Aspart 4 units 02/15/16 07:00 02/25/16 06:10 Novolog Vial SQ 4 units TIDAC ANURADHA Administration Insulin Detemir 28 units 02/15/16 22:00 02/24/16 22:24 Levemir Vial SQ 28 unit HS ANURADHA Administration Isosorbide Mononitrate 60 mg 02/15/16 10:00 02/25/16 09:45 Imdur - PO 60 mg BID ANURADHA Administration Metoprolol Succinate 100 mg/ 150 mg 02/15/16 10:00 02/25/16 09:44 Metoprolol Succinate 50 mg PO 150 mg BID ANURADHA Administration Torsemide 60 mg 02/25/16 10:00 02/25/16 09:40 Demadex - PO Not Given DAILY ANURADHA CBC, BMP 02/24/16 06:00 02/24/16 06:00 Echo 10/2015: Moderately decreased LV function (global). Nl RV size/fn. 1+ MR. mild-mod TR. mild ao dilation. Trivial effusion. echo 02/2016: tds; mod-sev dec lvef, global hk, nl rv, mod kortney, mild-mod tr, rvsp 30-40, ao root 4.5 cm cath 06/2013: 60-70 rpl1, 80-90 d1, subtotal om1 MIBI 08/2014 (pers): no STs; no ischemia seen; predominantly fixed medium-sized inferior/basal inferolat/apico-inferior defect c/w diaphragm attenuation; EF 46% a/p: 55 yo with h/o afib with prior ?embolic CVA 05/2014 ([facility]) right visual field cut, syncope 09/19 with ICH at that time vs other entity on MRI and recurrent syncope 12/2015 (unclear etiology), Non-ischemic cardiomyopathy dx 2013 at [facility], HTN, HPL, Rt carotid stenosis, IDDM, RLE cellulitis s/p debridement, MSSA bacteremia 10/2015, DAMIAN not on home cpap, ckd, who presents with sob/RVR. 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 Contrast enhancing lesion seen 06/19 and the prior heme on MRI were in same location and was thought to be most likely 2/2 post CVA hemorrhagic conversion (i.e. without hi risk for recurrent ICH). Less likely low-grade glioma, which would have very low risk of bleeding if AC resumed--hence the recs at that time were for usual AC considerations for his afib, no special precautions (pt failed repeatedly to f/u with neuro as outpatient, and then worsening renal fxn made him hi risk for morena when here last time). -warfarin changed to eliquis on past admits due to pt's repeated refusal to f/u with cardiology or have reliable INRs and make rec'd coumadin dose change, with worrisome CHADS-VASC 6 = estimated risk 9-10%/year, and hence concern he will stroke again on warfarin. - Had been switched to heparin drip due to renal function, now back on eliquis to avoid extra volume while diuresing. Con't Eliquis 5 (Has low CrCl but Weight >60kg) - Con't home regimen toprol 150 mg bid, rate controlled cad: -managed medically, no angina/ACS/ischemia since -Here with borderline elevation in troponin, flat trend, likely not acs, instead due to HF exacerbation and gilles/CKD. - continue home statin, bb, imdur, hydralazine - Con't to defer ASA as pt with stable CAD in past and also on AC (and ? incr'd risk for ICH) R carotid stenosis: -ADRIENNE with PSV in high 200s cm/sec here, suspicious for >70% stenosis per radiology report -vascular surgery c/s on prior admit felt stenosis is at MOST 70% (deferred further imaging with contrast due to low GFR). Recommended deferring CEA unless imaging suggested >80% stenosis, or if he developed symptoms/acute cerebrovascular event. Syncope, ? CVA/TIA (recurrent) - Previously pt had episodes of orthostatic hypotension sec to bp meds and diuretics. - similar symptoms at time of possible hemorrhagic CVA in 2014 (collapsed at home then), see discussion below. - had transient neurologic symptoms (speech disturbance) in 12/2015 but not thought to have had TIA per neuro. - Now with recurrent dizziness, but without neurologic symptoms/deficits. Improved with diuresis. Ao dilation - Con't bb. Routine outpatient surveillance CKD: - prior baseline creat ranged 1.5-2.2. s/p GILLES 10/21--went home with creat 2.8 and in 12/2015 creatine stable around 2.5-2.6, possible new baseline. - continue to monitor with diuresis cardiac hou stable for dc, pt instructed to f/u with cardiology
--- NOTE | 2016-02-25 12:28 | PN ---
Progress Note (short form) - Note Progress Note: Renal Follow up for CKD/Volume Overload Pt seen and examined at the bedside no complaints for discharge home today Vital Signs Temperature 98.7 F 02/25/16 09:49 Pulse Rate 86 02/25/16 09:49 Respiratory Rate 20 02/25/16 09:49 Blood Pressure 116/63 02/25/16 09:49 O2 Sat by Pulse Oximetry (%) 97 02/25/16 10:48 Intake & Output 02/22/16 02/23/16 02/24/16 02/25/16 23:59 23:59 23:59 23:59 Intake Total 240 570 50 Output Total 386 315 9085 400 Balance -360 270 -950 -400 Weight 369 lb 8 oz 359 lb 6 oz 359 lb 14.4 oz 349 lb 1.6 oz Gen: NAD, on NC. Awake and alert CVS: RRR, No M/R Lungs: CTA, no rales or wheeze Abd: Soft NT/ND Ext: 1+ edema in LE, + erythema. No tenderness CBC, BMP 02/24/16 06:00 02/24/16 06:00 Current Medications Acetaminophen (Tylenol -) 650 mg PO Q6H PRN PRN Reason: FEVER OR PAIN Albuterol/Ipratropium (Duoneb -) 1 amp NEB Q4H PRN PRN Reason: SHORTNESS OF BREATH Last Admin: 02/21/16 10:35 Dose: 1 amp Amlodipine Besylate (Norvasc -) 5 mg PO DAILY [facility] Last Admin: 02/25/16 09:44 Dose: 5 mg Apixaban (Eliquis -) 5 mg PO BID [facility] Last Admin: 02/25/16 09:43 Dose: 5 mg Atorvastatin Calcium (Lipitor -) 10 mg PO HS [facility] Last Admin: 02/24/16 22:21 Dose: 10 mg Hydralazine HCl (Apresoline -) 100 mg PO TID [facility] Last Admin: 02/25/16 06:00 Dose: 100 mg Insulin Aspart (Novolog Vial) 4 units SQ TIDAC [facility] Last Admin: 02/25/16 06:10 Dose: 4 units Insulin Detemir (Levemir Vial) 28 units SQ [facility] Last Admin: 02/24/16 22:24 Dose: 28 unit Isosorbide Mononitrate (Imdur -) 60 mg PO BID [facility] Last Admin: 02/25/16 09:45 Dose: 60 mg Metoprolol Succinate 100 mg/ (Metoprolol Succinate 50 mg) 150 mg PO BID [facility] Last Admin: 02/25/16 09:44 Dose: 150 mg Torsemide (Demadex -) 60 mg PO DAILY [facility] Last Admin: 02/25/16 09:40 Dose: Not Given A/P 55 year old Gentleman with PMhx of CKD stage 4, CHF, Hypertension, DM, Intra- cranial hemorrhage, Obstructive sleep apnea who presented with complaints of sob and urinary retention with BUN/Cr of 41/2.9. #CKD in setting of CHF/DM with nephrotic proteinuria Renal function and volume status improved ok for discharge on oral torsemide to follow up in our office for CKD follow up #Acute Systolic HF/Afib on Oral torsemide #Hypertension BP acceptable on Imdur, Metoprolol, amlodipine Steven Wyatt DO
[2016-02-25 17:09] VITALS: BP 143/76; PULSE 95; TEMP 98.7
--- NOTE | 2016-02-25 17:30 | DS ---
Physical Examination Vital Signs: Vital Signs Temperature 98.7 F 02/25/16 17:08 Pulse Rate 95 H 02/25/16 17:08 Respiratory Rate 20 02/25/16 17:08 Blood Pressure 143/76 02/25/16 17:08 O2 Sat by Pulse Oximetry (%) 94 L 02/25/16 17:28 Constitutional: Yes: No Distress HENT: Yes: Atraumatic Neck: Yes: Supple Cardiovascular: Yes: Regular Rate and Rhythm Respiratory: Yes: CTA Bilaterally Gastrointestinal: Yes: Normal Bowel Sounds Extremities: Yes: WNL Neurological: Yes: Alert, Oriented Labs: CBC, BMP 02/24/16 06:00 02/24/16 06:00 Discharge Summary Reason For Visit: AFIB/CHF Current Active Problems CHF (congestive heart failure) (Acute) History of CVA with residual deficit (Chronic) Hyperlipemia (Chronic) Splenic abscess (Chronic) Uncontrolled diabetes mellitus (Chronic) atrial fibrillation (Chronic) - Instructions Referrals: Mika Ho MD [Primary Care Provider] - Disposition: HOME - Home Medications Comprehensive Discharge Medication List: Ambulatory Orders Insulin (Novolog) [Novolog Flexpen -] 4 units SQ AC #1 pen 09/07/14 Atorvastatin Ca [Lipitor] 10 mg PO HS #30 tablet 02/26/15 Hydralazine HCl [Apresoline -] 100 mg PO TID #90 tablet 02/26/15 Insulin (Levemir) [Levemir Vial] 28 units SQ HS #7 ml 02/26/15 Isosorbide Mononitrate [Imdur -] 60 mg PO BID #60 tab.sr.24h 02/26/15 Metoprolol Succinate [Toprol XL -] 150 mg PO BID #60 tab.sr.24h 02/26/15 Amlodipine Besylate [Norvasc -] 5 mg PO DAILY #30 tablet 10/29/15 Apixaban [Eliquis -] 5 mg PO BID #60 tablet 10/29/15 Torsemide [Demadex -] 60 mg PO DAILY #90 tablet 12/20/15 stable to be dc home continue home meds
== END 2016-02-25 17:50 | disposition home or self-care (01) | DRG 194 ==
LOC: JER 21:49 → UNDOADMIN 23:37 → JERBED 23:37 → J4W 02-15 06:04 → J7W 02-22 13:29
PROVIDERS: ADMIT Internal Medicine; ATTEND Internal Medicine
PROC: 5A09457 Assistance with Respiratory Ventilation, 24-96 Consecutive Hours, Continuous Positive Airway Pressure (ICD-10-PCS; principal; 2016-02-17)
DX: I13.0 Hypertensive heart and chronic kidney disease with heart failure and stage 1 through stage 4 chronic kidney disease, or unspecified chronic kidney disease (principal); I25.10 Atherosclerotic heart disease of native coronary artery without angina pectoris; I48.91 Unspecified atrial fibrillation; E11.9 Type 2 diabetes mellitus without complications; E78.5 Hyperlipidemia, unspecified; I71.2 Thoracic aortic aneurysm, without rupture; I65.21 Occlusion and stenosis of right carotid artery; I42.8 Other cardiomyopathies; G47.39 Other sleep apnea; E11.65 Type 2 diabetes mellitus with hyperglycemia; E66.01 Morbid (severe) obesity due to excess calories; Z68.41 Body mass index [BMI] 40.0-44.9, adult; Z71.3 Dietary counseling and surveillance; R33.8 Other retention of urine; N18.9 Chronic kidney disease, unspecified; I50.21 Acute systolic (congestive) heart failure; N17.9 Acute kidney failure, unspecified; L03.115 Cellulitis of right lower limb; Z86.73 Personal history of transient ischemic attack (TIA), and cerebral infarction without residual deficits; Z79.4 Long term (current) use of insulin
CPT/HCPCS: 36415; 36600; 71010-TC; 80048; 80053; 81003; 81015; 82550; 82553; 82570; 82803; 83735; 83880; 84100; 84132; 84155; 84156; 84157; 84165; 84300; 84484; 84540; 85025; 85027; 85610; 85730; 86038; 93005; 93010; 93306-TC; 94640; 94660; 99284-25; J1644

== ENCOUNTER 2016-03-26 01:25 | Inpatient (IN) | payer OTHER ==
[2016-03-26 01:48] LABS: EOSINOPHIL 2.3 % (0-4.5)
[2016-03-26 01:50] VITALS: BMI 42.5
[2016-03-26 01:51] LABS: BASOPHIL 1.3 % (0-2.0); MCH 28.1 pg (25.7-33.7); MCHC 32.3 g/dl (32.0-35.9); MEAN CELL VOLUME 86.9 fl (80-96); MEAN PLT VOLUME 7.8 fl (7.5-11.1); NEUTROPHILS 79.9 % (42.8-82.8); PLATELET COUNT 217 K/MM3 (134-434); RDW 17.9 % (11.9-15.9); WHITE BLOOD COUNT 14.9 K/mm3 (4.0-10.0)
[2016-03-26 02:00] LABS: INR 1.21 (0.82-1.09); PROTHROMBIN TIME (PATIENT) 13.4 SEC (9.98-11.88)
[2016-03-26 02:10] LABS: ALBUMIN 2.5 g/dl (3.4-5.0); BILIRUBIN,TOTAL 0.9 mg/dL (0.2-1.0); CREATININE 2.2 mg/dL (0.7-1.3); TOT PROT 6.8 g/dl (6.4-8.2)
[2016-03-26 02:13] LABS: TROPONIN I 0.09 ng/ml (0.00-0.05)
[2016-03-26] MEDS ORDERED: FUROSEMIDE 40 MG/4 ML INJECTABLE VIAL IVPUSH ONE (02:54)
--- NOTE | 2016-03-26 02:54 | PDOC ---
[id number] No Limitations - History of Present Illness Initial Comments: 03/26/16 03:03 The patient is a 55 year old male with a significant past medical history of diabetes, CHF, AFib, arteriosclerotic heart disease, cardiomegaly, diverticulitis, chronic renal insufficiency, chronic kidney disease, hypertension, and hyperlipidemia, presenting to the Emergency Department with chest pain and urinary retention. The patient reports that about 5 hours ago he started to experience a stiffness in his chest. He admits that he has previously had similar pain. He also reports that his urination started to slow down yesterday, and that he has not been able to urinate today. He states that he is on water pills. He admits that he has previously had similar urinary retention. The patient denies dysuria, or hematuria. Patient denies nausea, vomiting, and diarrhea. Patient denies palpitations, diaphoresis, and shortness of breath. Patient denies fever, chills, and cough. Scrap Hooker: Dr. Ho <Rama Alvarez - Last Filed: 03/26/16 03:03> <Lizeth Arriola - Last Filed: 03/26/16 21:37> - General Chief Complaint: Shortness of Breath Stated Complaint: CHEST TIGHTNESS, SOB Time Seen by Provider: 03/26/16 02:02 Past History <Rama Alvarez - Last Filed: 03/26/16 03:03> - Past Medical History Anemia: No Asthma: No Cancer: No Cardiac Disorders: Yes (a-fib, "blood clot on heart", CAD, ASHD, Non-ichemic CMP , cardiomegaly) CVA: Yes (05/20(ischemic), 06/19(leftside occipital hemmorrage)-right peripheral impair) COPD: No CHF: Yes Dementia: No Diabetes: Yes (IDDM) GI Disorders: Yes (DIVERTICULOSIS, spleenic abcess) Disorders: Yes (CKD, CRI) HTN: Yes Hypercholesterolemia: Yes Liver Disease: Yes (CIRRHOSIS) Suicide Attempt (Hx): No Seizures: No Thyroid Disease: No - Surgical History Orthopedic Surgery: Yes (RT FOOT debridements) - Immunization History Immunization Up to Date: Yes - Psycho/Social/Smoking Cessation Hx Anxiety: No Suicidal Ideation: No Smoking History: Never smoked Have you smoked in the past 12 months: No Hx Alcohol Use: Yes (SOCIALLY) Drug/Substance Use Hx: No Substance Use Type: None Hx Substance Use Treatment: No <Lizeth Arriola - Last Filed: 03/26/16 21:37> - Past Medical History Allergies/Adverse Reactions: Allergies Allergy/AdvReac Type Severity Reaction Status Date / Time ciprofloxacin [From Cipro] Allergy Severe Rash Verified 03/26/16 01:37 ciprofloxacin HCl Allergy Severe Rash Verified 03/26/16 01:37 [From Cipro] Home Medications: Ambulatory Orders Insulin (Novolog) [Novolog Flexpen -] 4 units SQ AC #1 pen 09/07/14 Atorvastatin Ca [Lipitor] 10 mg PO HS #30 tablet 02/26/15 Hydralazine HCl [Apresoline -] 100 mg PO TID #90 tablet 02/26/15 Insulin (Levemir) [Levemir Vial] 28 units SQ HS #7 ml 02/26/15 Isosorbide Mononitrate [Imdur -] 60 mg PO BID #60 tab.sr.24h 02/26/15 Metoprolol Succinate [Toprol XL -] 150 mg PO BID #60 tab.sr.24h 02/26/15 Amlodipine Besylate [Norvasc -] 5 mg PO DAILY #30 tablet 10/29/15 Apixaban [Eliquis -] 5 mg PO BID #60 tablet 10/29/15 Torsemide [Demadex -] 60 mg PO DAILY #90 tablet 12/20/15 Review of Systems - Review of Systems Able to Perform ROS?: Yes Comments:: 03/26/16 03:03 GENERAL/CONSTITUTIONAL: No fever or chills. No weakness. HEAD, EYES, EARS, NOSE AND THROAT: No change in vision. No ear pain or discharge. No sore throat. CARDIOVASCULAR: + chest tightness. No shortness of breath. RESPIRATORY: No cough, wheezing, or hemoptysis. GASTROINTESTINAL: No nausea, vomiting, diarrhea or constipation. GENITOURINARY: + urinary retention. No dysuria, frequency, or hematuria. MUSCULOSKELETAL: No joint or muscle swelling or pain. No neck or back pain. SKIN: No rash NEUROLOGIC: No headache, vertigo, loss of consciousness, or change in strength/ sensation. ENDOCRINE: No increased thirst. No abnormal weight change. HEMATOLOGIC/LYMPHATIC: No anemia, easy bleeding, or history of blood clots. ALLERGIC/IMMUNOLOGIC: No hives or skin allergy. <Rama Alvarez - Last Filed: 03/26/16 03:03> *Physical Exam - Vital Signs Last Vital Signs Temp Pulse Resp BP Pulse Ox 97.8 F 111 H 28 H 148/115 97 03/26/16 01:37 03/26/16 01:37 03/26/16 01:37 03/26/16 01:37 03/26/16 01:37 - Physical Exam Comments: 03/26/16 03:04 GENERAL: Very obese. Awake, alert, and fully oriented, in no acute distress HEAD: No signs of trauma EYES: Limited vision in right visual field (chronic). PERRLA, EOMI, sclera anicteric, conjunctiva clear ENT: Auricles normal inspection, hearing grossly normal, nares patent, oropharynx clear without exudates. Moist mucosa NECK: Normal ROM, supple, no lymphadenopathy, JVD, or masses LUNGS: Breath sounds equal, clear to auscultation bilaterally. No wheezes, and no crackles HEART: Regular rate and rhythm, normal S1 and S2, no murmurs, rubs or gallops ABDOMEN: RUQ tenderness to palpation. Soft, normoactive bowel sounds. No guarding, no rebound. No masses EXTREMITIES: 2+ pitting edema and rash to shins bilaterally. Normal range of motion. No clubbing or cyanosis. NEUROLOGICAL: Cranial nerves II through XII grossly intact. Normal speech, normal gait SKIN: Warm, Dry, lesions noted. <Rama Alvarez - Last Filed: 03/26/16 03:03> - Vital Signs Last Vital Signs Temp Pulse Resp BP Pulse Ox 97.8 F 111 H 28 H 148/115 97 03/26/16 01:37 03/26/16 01:37 03/26/16 01:37 03/26/16 01:37 03/26/16 01:37 <Lizeth Arriola - Last Filed: 03/26/16 21:37> ED Treatment Course - LABORATORY CBC & Chemistry Diagram: 03/26/16 01:42 03/26/16 01:42 - ADDITIONAL ORDERS Additional order review: Laboratory Results 03/26/16 03/26/16 01:42 01:42 INR 1.21 H Sodium 137 Potassium 3.7 Chloride 104 Carbon Dioxide 22 D Anion Gap 11 BUN 32 H D Creatinine 2.2 H Creat Clearance w eGFR 31.47 Random Glucose 202 H D Calcium 8.0 L Total Bilirubin 0.9 D AST 20 D ALT 12 D Alkaline Phosphatase 169 H D Creatine Kinase 129 Troponin I 0.09 H B-Natriuretic Peptide 32350.04 H Total Protein 6.8 Albumin 2.5 L 03/26/16 01:42 RBC 4.76 MCV 86.9 MCHC 32.3 RDW 17.9 H MPV 7.8 D Neutrophils % 79.9 Lymphocytes % 10.3 Monocytes % 6.2 Eosinophils % 2.3 Basophils % 1.3 <Rama Alvarez - Last Filed: 03/26/16 03:03> - LABORATORY CBC & Chemistry Diagram: 03/26/16 08:30 03/26/16 08:30 - ADDITIONAL ORDERS Additional order review: Laboratory Results 03/26/16 03/26/16 01:42 01:42 INR 1.21 H Sodium 137 Potassium 3.7 Chloride 104 Carbon Dioxide 22 D Anion Gap 11 BUN 32 H D Creatinine 2.2 H Creat Clearance w eGFR 31.47 Random Glucose 202 H D Calcium 8.0 L Total Bilirubin 0.9 D AST 20 D ALT 12 D Alkaline Phosphatase 169 H D Creatine Kinase 129 Troponin I 0.09 H B-Natriuretic Peptide 62376.04 H Total Protein 6.8 Albumin 2.5 L 03/26/16 01:42 RBC 4.76 MCV 86.9 MCHC 32.3 RDW 17.9 H MPV 7.8 D Neutrophils % 79.9 Lymphocytes % 10.3 Monocytes % 6.2 Eosinophils % 2.3 Basophils % 1.3 - RADIOLOGY Radiology Studies Ordered: Category Date Time Status CHEST X-RAY PORTABLE* [RAD] Stat Radiology 03/26/16 02:06 Ordered <Lizeth Arriola - Last Filed: 03/26/16 21:37> Medical Decision Making - Medical Decision Making 03/26/16 21:30 Pt comes with worsening SOB; states that he can't breathe at home. He has CHF exacerbation. Chronic renal issues, + troponin secondary to the elevated BUN/ Cr. Pt has CXR that is consistent with pulm HTN. Pt is afebrile; Pt has no chest pain. He is dehydrated, as he has not been eating well. States that he usually eats healthfully and limits his sodium intake, but ate a handful of pizza bites that were very salty and feels that it was enough to result in CHF exacerbation. Pt received Diltiazem IVP for rapid afib; gentle hydration for worsening BUN/CR and tachycardia. Also received 80mg lasix IVP and he has been urinating and appears more comfortable that he did on arrival. His oxygen saturation is excellent on 2 L NC. Pt will be admitted to the telemetry unit for rapid afib; SOB; CHF exacerbation ; r/o GA, etc. <Lizeth Arriola - Last Filed: 03/26/16 21:37> *DC/Admit/Observation/Transfer - Attestations Scribe Attestion: 03/26/16 03:07 Documentation prepared by Rama Alvarez, acting as lead medical technologist for Lizeth Arriola MD. <Rama Alvarez - Last Filed: 03/26/16 03:03> - Discharge Dispostion Admit: Yes <Lizeth Arriola - Last Filed: 03/26/16 21:37> Diagnosis at time of Disposition: atrial fibrillation, CHF (congestive heart failure), Pulmonary hypertension, Dyspnea on exertion, Shortness of breath, Acute renal failure - Referrals
[2016-03-26] MEDS ORDERED: SODIUM CHLORIDE 0.9% 500 ML INFUS.BAG IV ONE (02:55)
[2016-03-26] MEDS ORDERED: dilTIAZem HCL 50 MG/10 ML - 10 ML VIAL IVPUSH ONE (02:56)
[2016-03-26] MEDS ORDERED: dilTIAZem HCL 125 MG/25 ML - 25 ML VIAL ONE (03:06)
[2016-03-26] MEDS ORDERED: FUROSEMIDE 40 MG/4 ML INJECTABLE VIAL ONE ×2 (03:06→14:03)
[2016-03-26] MEDS ORDERED: SODIUM CHLORIDE 250 ML IV STA (04:33)
--- NOTE | 2016-03-26 05:12 | HP ---
CHIEF COMPLAINT: SOB, Chest Pain, Difficulty Urinating PCP: Dr. Yamile Will HISTORY OF PRESENT ILLNESS: This is a 55 y/o male with a past medical history of DM, CHF, Afib (on Eliquis) , ASHD, Cardiomegaly, CVA (R- residual), CKD, HTN, HLD, Cirrhosis. Who presents to the emergency department with difficulty breathing, L-sided chest pain, increased swelling to his lower legs since 8pm last night. Patient also reports a decrease in urine flow since Sunday, then doubling up on his Torsemide with no relief. Patient reports recent admission last month for CHF. Patient reports improvement in his breathing since getting the IV diuretics in the ED, currently denies CP. Patient denies fever, chills, cough, AP, N/V,D, constipation. ER course was notable for: (1) Chest Xray- Fluid Overload (2) BNP (3) EKG Afib with RVR 111 bpm given Cardizem in ED rate now 90's Recent Travel: None PAST MEDICAL HISTORY: See HPI PAST SURGICAL HISTORY: None Social History: Smoking: Never Alcohol: Former Drugs: None Family History: Mother: Heart Disease (In 60's) Allergies ciprofloxacin [From Cipro] Allergy (Severe, Verified 03/26/16 01:37) Rash ciprofloxacin HCl [From Cipro] Allergy (Severe, Verified 03/26/16 01:37) Rash HOME MEDICATIONS: Home Medications Medication Instructions Recorded Insulin (Novolog) [Novolog Flexpen 4 units SQ AC #1 pen 09/07/14 -] Atorvastatin Ca [Lipitor] 10 mg PO HS #30 tablet 02/26/15 Hydralazine HCl [Apresoline -] 100 mg PO TID #90 tablet 02/26/15 Insulin (Levemir) [Levemir Vial] 28 units SQ HS #7 ml 02/26/15 Isosorbide Mononitrate [Imdur -] 60 mg PO BID #60 tab.sr.24h 02/26/15 Metoprolol Succinate [Toprol XL -] 150 mg PO BID #60 tab.sr.24h 02/26/15 Amlodipine Besylate [Norvasc -] 5 mg PO DAILY #30 tablet 10/29/15 Apixaban [Eliquis -] 5 mg PO BID #60 tablet 10/29/15 Torsemide [Demadex -] 60 mg PO DAILY #90 tablet 12/20/15 REVIEW OF SYSTEMS CONSTITUTIONAL: Absent: fever, chills, diaphoresis, generalized weakness, malaise, loss of appetite, weight change HEENT: Absent: rhinorrhea, nasal congestion, throat pain, throat swelling, difficulty swallowing, mouth swelling, ear pain, eye pain, visual changes CARDIOVASCULAR: chest pain Absent: syncope, palpitations, irregular heart rate, lightheadedness, peripheral edema RESPIRATORY: shortness of breath, dyspnea with exertion, orthopnea, Absent: cough, wheezing, stridor, hemoptysis GASTROINTESTINAL: Absent: abdominal pain, abdominal distension, nausea, vomiting, diarrhea, constipation, melena, hematochezia GENITOURINARY: oliguria Absent: dysuria, frequency, urgency, hesitancy, hematuria, flank pain, genital pain MUSCULOSKELETAL: Absent: myalgia, arthralgia, joint swelling, back pain, neck pain SKIN: Absent: rash, itching, pallor HEMATOLOGIC/IMMUNOLOGIC: Absent: easy bleeding, easy bruising, lymphadenopathy, frequent infections ENDOCRINE: Absent: unexplained weight gain, unexplained weight loss, heat intolerance, cold intolerance NEUROLOGIC: Absent: headache, focal weakness or paresthesias, dizziness, unsteady gait, seizure, mental status changes, bladder or bowel incontinence PSYCHIATRIC: Absent: anxiety, depression, suicidal or homicidal ideation, hallucinations. PHYSICAL EXAMINATION Vital Signs - 24 hr 03/26/16 01:37 Temperature 97.8 F Pulse Rate 111 H Respiratory 28 H Rate Blood Pressure 148/115 O2 Sat by Pulse 97 Oximetry (%) GENERAL: Awake, alert, and fully oriented, Morbidly Obese, in no acute distress. HEAD: Normal with no signs of trauma. EYES: Pupils equal, round and reactive to light, extraocular movements intact, sclera anicteric, conjunctiva clear. No lid lag. EARS, NOSE, THROAT: Ears normal, nares patent, oropharynx clear without exudates. Moist mucous membranes. NECK: Normal range of motion, supple without lymphadenopathy, JVD, or masses. LUNGS: Breath sounds diminished bilaterally at bases. No wheezes, and no crackles. No accessory muscle use. HEART: Irregular rate and rhythm, normal S1 and S2 without murmur, rub or gallop. ABDOMEN: Soft, obese nontender, not distended, normoactive bowel sounds, no guarding, no rebound, no masses. No hepatomegaly or splenomegaly. MUSCULOSKELETAL: Normal range of motion at all joints. No bony deformities or tenderness. No CVA tenderness. UPPER EXTREMITIES: 2+ pulses, warm, well-perfused. No cyanosis. No clubbing. Cap refill <2 seconds. No peripheral edema. LOWER EXTREMITIES: 2+ pulses, warm, well-perfused. No calf tenderness. +2 peripheral edema bilaterally . NEUROLOGICAL: Cranial nerves II-XII intact. Normal speech. Gait not observed. PSYCHIATRIC: Cooperative. Good eye contact. Appropriate mood and affect. SKIN: Warm, dry, normal turgor, no rashes. Erythema to both lower legs, scabbed , diabetic ulcers noted to right toes #2,#3 noted. Laboratory Results - last 24 hr 03/26/16 03/26/16 03/26/16 01:42 01:42 01:42 WBC 14.9 H RBC 4.76 Hgb 13.4 Hct 41.4 MCV 86.9 MCHC 32.3 RDW 17.9 H Plt Count 217 MPV 7.8 D Neutrophils % 79.9 Lymphocytes % 10.3 Monocytes % 6.2 Eosinophils % 2.3 Basophils % 1.3 INR 1.21 H Sodium 137 Potassium 3.7 Chloride 104 Carbon Dioxide 22 D Anion Gap 11 BUN 32 H D Creatinine 2.2 H Creat Clearance w eGFR 31.47 Random Glucose 202 H D Calcium 8.0 L Total Bilirubin 0.9 D AST 20 D ALT 12 D Alkaline Phosphatase 169 H D Creatine Kinase 129 Troponin I 0.09 H B-Natriuretic Peptide 12507.04 H Total Protein 6.8 Albumin 2.5 L ASSESSMENT/PLAN: This is a 55 y/o male with a PMHx of: CHF, Afib (Eliquis), CHF, ASHD, Cardiomegaly, DM, CKD,HTN, HLD, CVA (R- sided residual), Cirrhosis. Presents to the ED with Difficulty Breathing, Chest Pain. Admitted for Acute CHF Exacerbation, Chest Pain, Afib w RVR for further evaluation of their emergent condition. Plan: 1. CHF Exacerbation - Acute on Chronic HF - Tele monitoring - Lasix given in ED - Appreciate Cardiology Consult - Continue Lasix IV - Strict INOs - Daily Weights - Continue home meds 2. Chest Pain - Tele Monitoring - Trop I slightly elevated - Serial Enzymes - EKG reviewed - Asa 3. Afib With RVR - Continue Eliquis - [id number] Score 5 - Continue home meds 4. CKD - Cr 2.2 at baseline - Monitor renal function - Consider Nephrology Consult 5. HTN - Continue home meds 6. HLD - continue home med 7. CVA - Continue to monitor and treat with interventions accordingly - Fall precautions 8. Diabetes Mellitus - BGMs - ISS 9. FEN - Fluid Restriction < 1L - Replete lytes prn - Low Na, 1800 ADA Diet 10 DVT prophylaxis - Continue Eliquis Code Status: Full Code Problem List - Problem (1) Acute exacerbation of CHF (congestive heart failure) Code(s): I50.9 - HEART FAILURE, UNSPECIFIED (2) Systolic and diastolic CHF, acute on chronic Code(s): I50.43 - ACUTE ON CHRONIC COMBINED SYSTOLIC AND DIASTOLIC HRT FAIL (3) Acute on chronic renal failure Code(s): N17.9 - ACUTE KIDNEY FAILURE, UNSPECIFIED N18.9 - CHRONIC KIDNEY DISEASE, UNSPECIFIED (4) CKD (chronic kidney disease) Code(s): N18.9 - CHRONIC KIDNEY DISEASE, UNSPECIFIED (5) Pulmonary hypertension Code(s): I27.2 - OTHER SECONDARY PULMONARY HYPERTENSION (6) History of CVA with residual deficit Code(s): I69.30 - UNSPECIFIED SEQUELAE OF CEREBRAL INFARCTION (7) Diabetes mellitus Code(s): E11.9 - TYPE 2 DIABETES MELLITUS WITHOUT COMPLICATIONS (8) Gout Code(s): M10.9 - GOUT, UNSPECIFIED (9) Hypertension Code(s): I10 - ESSENTIAL (PRIMARY) HYPERTENSION (10) Insulin dependent diabetes mellitus Code(s): E11.9 - TYPE 2 DIABETES MELLITUS WITHOUT COMPLICATIONS Z79.4 - [employer] (CURRENT) USE OF INSULIN (11) DVT prophylaxis Code(s): [id number] - Visit type - Emergency Visit Emergency Visit: Yes ED Registration Date: 03/26/16 Care time: The patient presented to the Emergency Department on the above date and was hospitalized for further evaluation of their emergent condition. - New Patient This patient is new to me today: Yes Date on this admission: 03/26/16 - Critical Care Critical Care patient: No
[2016-03-26 08:56] LABS: BASOPHIL 0.2 % (0-2.0); EOSINOPHIL 2.1 % (0-4.5); MCH 28.4 pg (25.7-33.7); MCHC 32.4 g/dl (32.0-35.9); MEAN CELL VOLUME 87.7 fl (80-96); MEAN PLT VOLUME 7.8 fl (7.5-11.1); NEUTROPHILS 78.3 % (42.8-82.8); PLATELET COUNT 214 K/MM3 (134-434); RDW 18.2 % (11.9-15.9); WHITE BLOOD COUNT 12.9 K/mm3 (4.0-10.0)
[2016-03-26 09:21] LABS: MAGNESIUM 1.9 mg/dL (1.8-2.4)
[2016-03-26 09:27] LABS: CREATININE 2.4 mg/dL (0.7-1.3); PHOSPHOROUS 3.4 mg/dL (2.5-4.9); TROPONIN I 0.1 ng/ml (0.00-0.05)
[2016-03-26] MEDS: ISOSORBIDE MONONITRATE 60 MG TAB.SR.24H (FP) PO SCH ×2 (09:43→21:57)
[2016-03-26] MEDS: APIXABAN 5 MG TABLET PO SCH ×2 (09:43→21:57)
[2016-03-26] MEDS: amLODIPine BESYLATE 5 MG TABLET (FP) PO SCH (09:44)
[2016-03-26] MEDS: METOPROLOL SUCCINATE 100 MG TAB.SR.24H (FP) PO SCH ×2 (09:47→21:58)
[2016-03-26 10:02] LABS: URINE APPEARANCE CLEAR; URINE BILIRUBIN NEGATIVE (NEGATIVE); URINE BLOOD NEGATIVE (NEGATIVE); URINE COLOR LTYELLOW; URINE GLUCOSE (UA) 1+ (NEGATIVE); URINE KETONE NEGATIVE (NEGATIVE); URINE LEUK ESTERASE NEGATIVE (NEGATIVE); URINE NITRITE NEGATIVE (NEGATIVE); URINE PROTEIN 3+ (NEGATIVE); URINE UROBILINOGEN NEGATIVE E.U./dl (0.2-1.0)
[2016-03-26 10:12] LABS: URINE HYALINE CAST 1 /lpf; URINE RBC 1 /hpf (0-3); URINE WBC 1 /hpf (3-5)
--- NOTE | 2016-03-26 11:15 | CON.CARD ---
Cardiology Consult (text) - Consultation Consultation Note: CC: sob HPI: 55 yo with h/o afib with prior ?embolic CVA 05/2014 ([facility]) right visual field cut, syncope 09/19 with ICH at that time vs other entity on MRI and recurrent syncope 12/2015 (unclear etiology), Non-ischemic cardiomyopathy dx 2013 at [facility], HTN, HPL, Rt carotid stenosis, IDDM, RLE cellulitis s/p debridement, MSSA bacteremia 10/2015, DAMIAN not on home cpap, ckd, who presents with sob. Admitted here last month for chf and diuresed and discharged home. [place] well at home for past month then yesterday noticed he was not making much urine so took extra diuretic dose but still no improvement and felt sob so came to ER. Past 30 days had been feeling well until this. No cp, palps, dizzy, loc , pnd, orthopnea. LE edema had been stable, a little worse past 2 days per pt. Sees dr cohen for cardio but poor f/u, compliance. Past Medical History: per hpi Past Surgical History: per hpi Social hx: Former smoker, no etoh or illicits Family Disease History: Heart Disease: Mother (in 60's) ros: per hpi; no fever, nvd, cough, nasal congestion, river, vision changes, muscle pain, gib, hematuria, dysuria meds: Home Medications Medication Instructions Recorded Insulin (Novolog) [Novolog Flexpen 4 units SQ AC #1 pen 09/07/14 -] Atorvastatin Ca [Lipitor] 10 mg PO HS #30 tablet 02/26/15 Hydralazine HCl [Apresoline -] 100 mg PO TID #90 tablet 02/26/15 Insulin (Levemir) [Levemir Vial] 28 units SQ HS #7 ml 02/26/15 Isosorbide Mononitrate [Imdur -] 60 mg PO BID #60 tab.sr.24h 02/26/15 Metoprolol Succinate [Toprol XL -] 150 mg PO BID #60 tab.sr.24h 02/26/15 Amlodipine Besylate [Norvasc -] 5 mg PO DAILY #30 tablet 10/29/15 Apixaban [Eliquis -] 5 mg PO BID #60 tablet 10/29/15 Torsemide [Demadex -] 60 mg PO DAILY #90 tablet 12/20/15 pe: Vital Signs Period Temp Pulse Resp BP Sys/Perez Pulse Ox Last 24 Hr 97.8 F-98.0 F 108-113 19-28 148-158/89-115 97-100 Constitutional: Yes: No Distress, Obese Eyes: No: Sclera Icterus HENT: No: Nasal Congestion Respiratory: cta bl nl eff No: Accessory Muscle Use Gastrointestinal: Yes: Normal Bowel Sounds. obese No: Distention, Hepatomegaly, Palpable Mass, tenderness Cardiovascular: Yes: Irregular Rate and Rhythm JVD: tds Carotid Bruit: No PMI: Non-Displaced Heart Sounds: Yes: nl, S1, S2. No: Gallop Murmur: No: Systolic Murmur, Diastolic Murmur Edema: trace LE bl, erythema of shins bl Peripheral Pulses: pos dp pt no carotid bruits Integumentary: No: Jaundice diaphoresis Neurological: Yes: Alert, Oriented (x3) Psychiatric: No: Agitated Laboratory Last Values WBC 12.9 K/mm3 (4.0-10.0) H 03/26/16 08:30 RBC 4.74 M/mm3 (4.00-5.60) 03/26/16 08:30 Hgb 13.5 GM/dL (11.7-16.9) 03/26/16 08:30 Hct 41.6 % (35.4-49) 03/26/16 08:30 MCV 87.7 fl (80-96) 03/26/16 08:30 MCHC 32.4 g/dl (32.0-35.9) 03/26/16 08:30 RDW 18.2 % (11.9-15.9) H 03/26/16 08:30 Plt Count 214 K/MM3 (134-434) 03/26/16 08:30 MPV 7.8 fl (7.5-11.1) 03/26/16 08:30 Neutrophils % 78.3 % (42.8-82.8) 03/26/16 08:30 Lymphocytes % 12.8 % (8-40) D 03/26/16 08:30 Monocytes % 6.6 % (3.8-10.2) 03/26/16 08:30 Eosinophils % 2.1 % (0-4.5) 03/26/16 08:30 Basophils % 0.2 % (0-2.0) 03/26/16 08:30 INR 1.21 (0.82-1.09) H 03/26/16 01:42 Sodium 139 mmol/L (136-145) 03/26/16 08:30 Potassium 3.5 mmol/L (3.5-5.1) 03/26/16 08:30 Chloride 104 mmol/L (98-107) 03/26/16 08:30 Carbon Dioxide 25 mmol/L (21-32) 03/26/16 08:30 Anion Gap 10 (8-16) 03/26/16 08:30 BUN 33 mg/dL (7-18) H 03/26/16 08:30 Creatinine 2.4 mg/dL (0.7-1.3) H 03/26/16 08:30 Creat Clearance w eGFR 31.47 (>60) 03/26/16 01:42 Random Glucose 181 mg/dL (74-106) H 03/26/16 08:30 Hemoglobin A1c % 8.4 % (4.8-6.0) H D 03/26/16 08:30 Calcium 8.0 mg/dL (8.5-10.1) L 03/26/16 08:30 Phosphorus 3.4 mg/dL (2.5-4.9) 03/26/16 08:30 Magnesium 1.9 mg/dL (1.8-2.4) 03/26/16 08:30 Total Bilirubin 0.9 mg/dL (0.2-1.0) D 03/26/16 01:42 AST 20 U/L (15-37) D 03/26/16 01:42 ALT 12 U/L (12-78) D 03/26/16 01:42 Alkaline Phosphatase 169 U/L (45-117) H D 03/26/16 01:42 Creatine Kinase 112 IU/L (39-308) 03/26/16 08:30 Troponin I 0.10 ng/ml (0.00-0.05) H 03/26/16 08:30 B-Natriuretic Peptide 13525.04 pg/ml (5-125) H 03/26/16 01:42 Total Protein 6.8 g/dl (6.4-8.2) 03/26/16 01:42 Albumin 2.5 g/dl (3.4-5.0) L 03/26/16 01:42 Triglycerides 104 mg/dL (35-160) D 03/26/16 08:30 Cholesterol 142 mg/dL (50-200) D 03/26/16 08:30 Total LDL Cholesterol 104 mg/dL (5-100) H D 03/26/16 08:30 HDL Cholesterol 38 mg/dL (40-60) L D 03/26/16 08:30 Urine Color Ltyellow 03/26/16 09:40 Urine Appearance Clear 03/26/16 09:40 Urine pH 5.0 (5.0-8.0) 03/26/16 09:40 Ur Specific [place] 1.008 (1.001-1.035) 03/26/16 09:40 Urine Protein 3+ (NEGATIVE) H 03/26/16 09:40 Urine Glucose (UA) 1+ (NEGATIVE) H 03/26/16 09:40 Urine Ketones Negative (NEGATIVE) 03/26/16 09:40 Urine Blood Negative (NEGATIVE) 03/26/16 09:40 Urine Nitrite Negative (NEGATIVE) 03/26/16 09:40 Urine Bilirubin Negative (NEGATIVE) 03/26/16 09:40 Urine Urobilinogen Negative E.U./dl (0.2-1.0) 03/26/16 09:40 Ur Leukocyte Esterase Negative (NEGATIVE) 03/26/16 09:40 Urine RBC 1 /hpf (0-3) 03/26/16 09:40 Urine WBC 1 /hpf (3-5) 03/26/16 09:40 Hyaline Casts 1 /lpf 03/26/16 09:40 EKG 03/25/16: afib, vr 111, nonspecific tw changes, no st changes CXR: congestion, infiltrates Echo 10/2015: Moderately decreased LV function (global). Nl RV size/fn. 1+ MR. mild-mod TR. mild ao dilation. Trivial effusion. cath 06/2013: 60-70 rpl1, 80-90 d1, subtotal om1 MIBI 08/2014 (pers): no STs; no ischemia seen; predominantly fixed medium-sized inferior/basal inferolat/apico-inferior defect c/w diaphragm attenuation; EF 46% a/p: 55 yo with h/o afib with prior ?embolic CVA 05/2014 ([facility]) right visual field cut, syncope 09/19 with ICH at that time vs other entity on MRI and recurrent syncope 12/2015 (unclear etiology), Non-ischemic cardiomyopathy dx 2013 at [facility], HTN, HPL, Rt carotid stenosis, IDDM, RLE cellulitis s/p debridement, MSSA bacteremia 10/2015, DAMIAN not on home cpap, ckd, who presents with sob. sob, possible acute systolic HF exacerbation, NICM - admitted last month for chf and diuresed to wt in 340s. Had been feeling well for a whole month on torsemide 60 until day before admit when he noticed decreased UOP and sob. Here in ER his wt is at baseline and does not appear grossly vol overloaded. Can continue with trial of iv lasix 80 bid which has diruesed him well in past. If no improvement with lasix would consider alternative diagnosis, infection w/u. 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 Contrast enhancing lesion seen 06/19 and the prior heme on MRI were in same location and was thought to be most likely 2/2 post CVA hemorrhagic conversion (i.e. without hi risk for recurrent ICH). Less likely low-grade glioma, which would have very low risk of bleeding if AC resumed--hence the recs at that time were for usual AC considerations for his afib, no special precautions (pt failed repeatedly to f/u with neuro as outpatient, and then worsening renal fxn made him hi risk for morena when here last time). -warfarin changed to eliquis on past admits due to pt's repeated refusal to f/u with cardiology or have reliable INRs and make rec'd coumadin dose change, with worrisome CHADS-VASC 6 = estimated risk 9-10%/year, and hence concern he will stroke again on warfarin. - now on eliquis - Con't home regimen toprol 150 mg bid, rate controlled, monitor on tele cad: -managed medically, no angina/ACS/ischemia since -Here with borderline elevation in troponin, flat trend, consistent with prior baseline values. no signs acs, instead likely due to CHF and CKD. -continue home statin, bb, imdur, hydralazine -con't to defer ASA as pt with stable CAD in past and also on AC R carotid stenosis: -ADRIENNE with PSV in high 200s cm/sec here, suspicious for >70% stenosis per radiology report -vascular surgery c/s on prior admit felt stenosis is at MOST 70% (deferred further imaging with contrast due to low GFR). Recommended deferring CEA unless imaging suggested >80% stenosis, or if he developed symptoms/acute cerebrovascular event. Syncope, ? CVA/TIA (recurrent) - Previously pt had episodes of orthostatic hypotension sec to bp meds and diuretics. - similar symptoms at time of possible hemorrhagic CVA in 2014 (collapsed at home then), see discussion below. - had transient neurologic symptoms (speech disturbance) in 12/2015 but not thought to have had TIA per neuro. - Now with recurrent dizziness, but without neurologic symptoms/deficits. Improved with diuresis. Ao dilation - Con't bb. Routine outpatient surveillance CKD: - baseline cr 2.5-2.6 - stable, continue to monitor with diuresis
[2016-03-26] MEDS ORDERED: FUROSEMIDE 40 MG/4 ML INJECTABLE VIAL IVPUSH SCH (14:00)
[2016-03-26] MEDS: FUROSEMIDE 40 MG/4 ML INJECTABLE VIAL IVPUSH SCH (14:02)
[2016-03-26] MEDS: hydrALAZINE HCL 50 MG TABLET (FP) PO SCH ×2 (14:02→21:57)
[2016-03-26 14:52] LABS: TROPONIN I 0.09 ng/ml (0.00-0.05)
--- NOTE | 2016-03-26 15:48 | PN ---
Physical Exam: SUBJECTIVE: Patient seen and examined sitting on edge of bed. Complaining of SOB. Has been urinating since given lasix in ED. OBJECTIVE: Vital Signs Period Temp Pulse Resp BP Sys/Perez Pulse Ox Last 24 Hr 98.0 F 106-113 18-20 147-158/72-111 95-100 GENERAL: The patient is awake, alert, and fully oriented, in no acute distress. HEAD: Normal with no signs of trauma. EYES: PERRL, extraocular movements intact, sclera anicteric, conjunctiva clear. No ptosis. LUNGS: Decreased breath sounds RLL, no rhonchi, no wheezing no accessory muscle use. HEART: Irregular, S1, S2 without murmur, rub or gallop. ABDOMEN: Soft, nontender, nondistended, normoactive bowel sounds, no guarding, no rebound EXTREMITIES: 2+ pulses, warm, well-perfused, no edema. Fungal toenails. NEUROLOGICAL: Cranial nerves II through XII grossly intact. Normal speech, gait not observed. PSYCH: Normal mood, normal affect. SKIN: Warm, dry, normal turgor, no rashes or lesions noted Laboratory Results - last 24 hr 03/26/16 03/26/16 03/26/16 08:30 08:30 08:30 WBC 12.9 H RBC 4.74 Hgb 13.5 Hct 41.6 MCV 87.7 MCHC 32.4 RDW 18.2 H Plt Count 214 MPV 7.8 Neutrophils % 78.3 Lymphocytes % 12.8 D Monocytes % 6.6 Eosinophils % 2.1 Basophils % 0.2 Sodium 139 Potassium 3.5 Chloride 104 Carbon Dioxide 25 Anion Gap 10 BUN 33 H Creatinine 2.4 H Random Glucose 181 H Hemoglobin A1c % 8.4 H D Calcium 8.0 L Phosphorus 3.4 Magnesium 1.9 Creatine Kinase 112 Troponin I 0.10 H Triglycerides 104 D Cholesterol 142 D Total LDL Cholesterol 104 H D HDL Cholesterol 38 L D Urine Color Urine Appearance Urine pH Ur Specific [place] Urine Protein Urine Glucose (UA) Urine Ketones Urine Blood Urine Nitrite Urine Bilirubin Urine Urobilinogen Ur Leukocyte Esterase Urine RBC Urine WBC Hyaline Casts 03/26/16 03/26/16 09:40 14:20 WBC RBC Hgb Hct MCV MCHC RDW Plt Count MPV Neutrophils % Lymphocytes % Monocytes % Eosinophils % Basophils % Sodium Potassium Chloride Carbon Dioxide Anion Gap BUN Creatinine Random Glucose Hemoglobin A1c % Calcium Phosphorus Magnesium Creatine Kinase 106 Troponin I 0.09 H Triglycerides Cholesterol Total LDL Cholesterol HDL Cholesterol Urine Color Ltyellow Urine Appearance Clear Urine pH 5.0 Ur Specific [place] 1.008 Urine Protein 3+ H Urine Glucose (UA) 1+ H Urine Ketones Negative Urine Blood Negative Urine Nitrite Negative Urine Bilirubin Negative Urine Urobilinogen Negative Ur Leukocyte Esterase Negative Urine RBC 1 Urine WBC 1 Hyaline Casts 1 Active Medications Generic Name Dose Route Start Last Admin Trade Name Brianna PRN Reason Stop Dose Admin Amlodipine Besylate 5 mg 03/26/16 10:00 03/26/16 09:44 Norvasc - PO 5 mg DAILY ANURADHA Administration Apixaban 5 mg 03/26/16 10:00 03/26/16 09:43 Eliquis - PO 5 mg BID ANURADHA Administration Atorvastatin Calcium 10 mg 03/26/16 22:00 Lipitor - PO HS ANURADHA Furosemide 80 mg 03/26/16 14:00 03/26/16 14:02 Lasix Injection - IVPUSH 80 mg BID@0600,1400 ANURADHA Administration Hydralazine HCl 100 mg 03/26/16 14:00 03/26/16 14:02 Apresoline - PO 100 mg TID ANURADHA Administration Isosorbide Mononitrate 60 mg 03/26/16 10:00 03/26/16 09:43 Imdur - PO 60 mg BID ANURADHA Administration Metoprolol Succinate 150 mg 03/26/16 10:00 03/26/16 09:47 Toprol Xl - PO 150 mg BID ANURADHA Administration Imaging EKG 03/25/16: afib, vr 111, nonspecific tw changes, no st changes CXR 03/26/16: progressive congestive changes, possible infiltrates Echo 10/2015: Moderately decreased LV function (global). Nl RV size/fn. 1+ MR. mild-mod TR. mild ao dilation. Trivial effusion. Cath 06/2013: 60-70 rpl1, 80-90 d1, subtotal om1 MIBI 08/2014 (pers): no STs; no ischemia seen; predominantly fixed medium-sized inferior/basal inferolat/apico-inferior defect c/w diaphragm attenuation; EF 46% ASSESSMENT/PLAN The patient is a 54 year-old man with a PMH of HTN, HLD, atrial fibrillation, CVA (05/2013), ICH, right carotid artery stenosis, systolic heart failure, NICM , IDDM, chronic kidney disease, cervical spine DDD, DAMIAN, and gout. Admitted for SOB, decreased UOP, and bilateral LE edema. Acute on chronic systolic heart failure NICM --CXR shows progressive congestive changes since last admission in February 2016 --lasix IV 80mg BID --daily weights, strict I&Os --continue Toprol XL, amlodipine, hydralazine, isosorbide Bacterial Pneumonia --CXR shows RLL infiltrate --afebrile, but mild leukocytosis --start Zosyn (day #1) and IV clinda (day #1) Atrial fib on anticoagulation --rate 110's; continue Toprol XL, amlodipine --high CHADS-VASC score of 6 and patient's CVA in 05/2013 occurred while off a/c for a surgical procedure; of concern is that patient likely had ICH in 2014; nevertheless, decision has been made by treating team during previous admissions to continue patient on anticoagulation; continue Eliquis h/o CVA --ischemic CVA 05/2013 --possible hemorrhagic CVA 06/19 CAD --flat trending troponins --continue Lipitor, Toprol XL, isosorbide, hydralazine --no ASA Right carotid artery stenosis --vascular surgery c/s on prior admit, no surgical intervention --continue Lipitor CKD --Cr 2.4 which is baseline --avoid ACEI/ARB --monitor closely while diuresing Onychomycosis --Nystatin cream between toes F/E/N Fluids: PO intake adequate Electrolytes: replete as indicated Nutrition: low sodium DVT prophylaxis: on Eliquis, oob, ambulation Dispo: continues to require inpatient care. Full Code. Visit type - Emergency Visit Emergency Visit: Yes ED Registration Date: 03/26/16 Care time: The patient presented to the Emergency Department on the above date and was hospitalized for further evaluation of their emergent condition. - New Patient This patient is new to me today: Yes Date on this admission: 03/26/16 - Critical Care Critical Care patient: No
--- NOTE | 2016-03-26 17:10 | CONSULT ---
Consult Consult Specialty:: infectious diseases Reason for Consultation:: pna - History of Present Illness Chief Complaint: sob History of Present Illness: 55 y/o male with a past medical history of DM, CHF, Afib (on Eliquis), ASHD, Cardiomegaly, CVA (R- residual), CKD, HTN, HLD, Cirrhosis. Who presents to the emergency department with difficulty breathing, L-sided chest pain, increased swelling to his lower legs since 8pm last night. Patient also reports a decrease in urine flow since Sunday, then doubling up on his Torsemide with no relief. Patient reports recent admission last month for CHF patient was given iv diuretics in the ER according to the patient cardiology evaluated the patient and according to them his symptoms were not due to chf that was what the patient was told patient known to me from previous admission patient feels better now but still sob - History Source History Provided By: Patient Limitations to Obtaining History: No Limitations - Past Medical History [employer]: Yes: CVA (On 06/02/14 while in [facility]; right visual field cut), Other (hemorrhagic post. circualtion cerebral infarction while on anticoagulation therapy.) Cardio/Vascular: Yes: AFIB (Last dose Xarelto about two weeks ago; on heparin drip thru 06/11/14), CHF (Systolic), HTN, Hyperlipdemia, Other (Non-ischemic cardiomyopathy diagnosed 07/19 at [facility]) Pulmonary: Yes: Sleep Apnea (Not on home CPAP) Renal/: Yes: Renal Inusuff Infectious Disease: Yes: Other (right foot abcess) Endocrine: Yes: Diabetes Mellitus - Past Surgical History Past Surgical History: Yes: None - Alcohol/Substance Use Hx Alcohol Use: Yes (SOCIALLY) History of Substance Use: reports: None - Smoking History Smoking history: Never smoked Have you smoked in the past 12 months: No Home Medications - Allergies Allergies/Adverse Reactions: Allergies Allergy/AdvReac Type Severity Reaction Status Date / Time ciprofloxacin [From Cipro] Allergy Severe Rash Verified 03/26/16 01:37 ciprofloxacin HCl Allergy Severe Rash Verified 03/26/16 01:37 [From Cipro] - Home Medications Home Medications: Ambulatory Orders Insulin (Novolog) [Novolog Flexpen -] 4 units SQ AC #1 pen 09/07/14 Atorvastatin Ca [Lipitor] 10 mg PO HS #30 tablet 02/26/15 Hydralazine HCl [Apresoline -] 100 mg PO TID #90 tablet 02/26/15 Insulin (Levemir) [Levemir Vial] 28 units SQ HS #7 ml 02/26/15 Isosorbide Mononitrate [Imdur -] 60 mg PO BID #60 tab.sr.24h 02/26/15 Metoprolol Succinate [Toprol XL -] 150 mg PO BID #60 tab.sr.24h 02/26/15 Amlodipine Besylate [Norvasc -] 5 mg PO DAILY #30 tablet 10/29/15 Apixaban [Eliquis -] 5 mg PO BID #60 tablet 10/29/15 Torsemide [Demadex -] 60 mg PO DAILY #90 tablet 12/20/15 Family Disease History - Family Disease History Family Disease History: Heart Disease: Mother ([place] 60's) Review of Systems - Review of Systems Constitutional: reports: No Symptoms Eyes: reports: No Symptoms HENT: reports: No Symptoms Neck: reports: No Symptoms Cardiovascular: reports: Shortness of Breath Respiratory: reports: SOB, SOB on Exertion Gastrointestinal: reports: No Symptoms Genitourinary: reports: No Symptoms Musculoskeletal: reports: No Symptoms Integumentary: reports: No Symptoms Neurological: reports: No Symptoms Endocrine: reports: No Symptoms Hematology/Lymphatic: reports: No Symptoms Psychiatric: reports: No Symptoms Physical Exam Vital Signs: Vital Signs Temperature 98.0 F 03/26/16 09:12 Pulse Rate 106 H 03/26/16 12:23 Respiratory Rate 18 03/26/16 12:23 Blood Pressure 147/72 03/26/16 12:23 O2 Sat by Pulse Oximetry (%) 95 03/26/16 12:23 Constitutional: Yes: Mild Distress, Obese Eyes: Yes: Conjunctiva Clear HENT: Yes: Atraumatic Neck: Yes: Supple, Trachea Midline Cardiovascular: Yes: Pulse Irregular Respiratory: Yes: Regular, Poor Air Entry (on both lower lobes) Musculoskeletal: Yes: WNL Extremities: Yes: WNL Neurological: Yes: Alert, Oriented Psychiatric: Yes: Alert, Oriented Labs: CBC, BMP 03/26/16 08:30 03/26/16 08:30 Imaging - Results Chest X-ray: Report Reviewed, Image Reviewed Assessment/Plan 1. CHF Exacerbation 2. Chest Pain 3. Afib With RVR 4. CKD 5. HTN 6. HLD 7. CVA 8 PNA after looking at the xray and cardiac thought process i think patient has pna plan will start patient on abx will see how patient does rst as per cardio and pul
[2016-03-26] MEDS ORDERED: PIPERACILLIN/TAZOB 3.375 GM/50 ML PRE-DOCKED IVPB SCH (18:00)
[2016-03-26] MEDS ORDERED: CLINDAMYCIN IVPB 300 MG in DEXTROSE 5%-WATER - 48 ML IVPB SCH (18:00)
[2016-03-26] MEDS: PIPERACILLIN/TAZOB 3.375 GM 50 ML IVPB SCH (18:29)
[2016-03-26] MEDS: CLINDAMYCIN 300 MG PREMIX IVPB 50 ML IVPB SCH (18:54)
[2016-03-26] MEDS: ATORVASTATIN CA 10 MG TABLET (FP) PO SCH (21:58)
[2016-03-26] MEDS: NYSTATIN 100,000 UNIT/GM TOPICAL CREAM 15 GM TUBE TP SCH (22:00)
--- NOTE | 2016-03-27 00:41 | EKG ---
Test Reason : Blood Pressure : / mmHG Vent. Rate : 111 BPM Atrial Rate : 129 BPM P-R Int : 000 ms QRS Dur : 104 ms QT Int : 392 ms P-R-T Axes : 000 256 155 degrees QTc Int : 533 ms ATRIAL FIBRILLATION WITH RAPID VENTRICULAR RESPONSE NONSPECIFIC T WAVE ABNORMALITY PROLONGED QT ABNORMAL ECG WHEN COMPARED WITH ECG OF 17-FEB-2016 01:39, NO SIGNIFICANT CHANGE WAS FOUND Confirmed by JAZ COKER MD ([id number]) on 03/27/2016 12:41:35 AM Referred By: Confirmed By:JAZ COKER MD
[2016-03-27] MEDS: CLINDAMYCIN 300 MG PREMIX IVPB 50 ML IVPB SCH ×3 (01:00→18:28)
[2016-03-27] MEDS: PIPERACILLIN/TAZOB 3.375 GM 50 ML IVPB SCH ×3 (01:19→18:28)
[2016-03-27] MEDS: hydrALAZINE HCL 50 MG TABLET (FP) PO SCH ×3 (06:14→21:13)
[2016-03-27] MEDS: FUROSEMIDE 40 MG/4 ML INJECTABLE VIAL IVPUSH SCH ×2 (06:14→13:26)
[2016-03-27 07:14] LABS: BASOPHIL 0.8 % (0-2.0); EOSINOPHIL 2.7 % (0-4.5); MCH 28.2 pg (25.7-33.7); MCHC 32.3 g/dl (32.0-35.9); MEAN CELL VOLUME 87.2 fl (80-96); PLATELET COUNT 219 K/MM3 (134-434); WHITE BLOOD COUNT 13.1 K/mm3 (4.0-10.0)
[2016-03-27 07:42] LABS: ALBUMIN 2.5 g/dl (3.4-5.0); PHOSPHOROUS 4.3 mg/dL (2.5-4.9)
[2016-03-27 07:44] LABS: BILIRUBIN,TOTAL 1.5 mg/dL (0.2-1.0); CALCIUM 8.2 mg/dL (8.5-10.1); CREATININE 2.6 mg/dL (0.7-1.3); MAGNESIUM 2.1 mg/dL (1.8-2.4); TOT PROT 6.5 g/dl (6.4-8.2)
--- NOTE | 2016-03-27 09:49 | PN ---
Progress Note (short form) - Note Progress Note: s: no cp palps dizzy; sob present but better today o: Vital Signs Period Temp Pulse Resp BP Sys/Perez Pulse Ox Last 24 Hr 97.4 F-98.4 F 90-110 18-18 111-151/67-90 95-96 Constitutional: Yes: No Distress, Obese Eyes: No: Sclera Icterus Respiratory: cta bl nl eff No: Accessory Muscle Use Gastrointestinal: Yes: Normal Bowel Sounds. obese No: Distention, Hepatomegaly, Palpable Mass, tenderness Cardiovascular: Yes: Irregular Rate and Rhythm JVD: tds Heart Sounds: Yes: nl, S1, S2. No: Gallop Murmur: No: Systolic Murmur, Diastolic Murmur Edema: trace LE bl, erythema of shins bl Integumentary: No: Jaundice diaphoresis Neurological: Yes: Alert, Oriented (x3) Psychiatric: No: Agitated Current Medications Generic Name Dose Route Start Last Admin Trade Name Freq PRN Reason Stop Dose Admin Amlodipine Besylate 5 mg 03/26/16 10:00 03/26/16 09:44 Norvasc - PO 5 mg DAILY ANURADHA Administration Apixaban 5 mg 03/26/16 10:00 03/26/16 21:57 Eliquis - PO 5 mg BID ANURADHA Administration Atorvastatin Calcium 10 mg 03/26/16 22:00 03/26/16 21:58 Lipitor - PO 10 mg HS ANURADHA Administration Furosemide 80 mg 03/26/16 14:00 03/27/16 06:14 Lasix Injection - IVPUSH 80 mg BID@0600,1400 ANURADHA Administration Hydralazine HCl 100 mg 03/26/16 14:00 03/27/16 06:14 Apresoline - PO 100 mg TID ANURADHA Administration Piperacillin Sod/Tazobactam Sod 50 mls @ 100 mls/hr 03/26/16 18:00 03/27/16 01: 19 Zosyn 3.375gm Ivpb (Pre-Docked) IVPB 100 mls/hr Q8H-IV ANURADHA Administration Protocol Clindamycin Phosphate 50 mls @ 100 mls/hr 03/26/16 18:00 03/27/16 01:00 Cleocin 300 Mg Premix Ivpb IVPB 100 mls/hr Q8H-IV ANURADHA Administration Isosorbide Mononitrate 60 mg 03/26/16 10:00 03/26/16 21:57 Imdur - PO 60 mg BID ANURADHA Administration Metoprolol Succinate 150 mg 03/26/16 10:00 03/26/16 21:58 Toprol Xl - PO 150 mg BID ANURADHA Administration Nystatin 1 applic 03/26/16 22:00 03/26/16 22:00 Mycostatin Cream - TP 1 applic BID ANURADHA Administration CBC, BMP 03/27/16 05:35 03/27/16 05:35 EKG 03/25/16: afib, vr 111, nonspecific tw changes, no st changes CXR: congestion, infiltrates Echo 10/2015: Moderately decreased LV function (global). Nl RV size/fn. 1+ MR. mild-mod TR. mild ao dilation. Trivial effusion. cath 06/2013: 60-70 rpl1, 80-90 d1, subtotal om1 MIBI 08/2014 (pers): no STs; no ischemia seen; predominantly fixed medium-sized inferior/basal inferolat/apico-inferior defect c/w diaphragm attenuation; EF 46% tele: afib, rate controlled a/p: 55 yo with h/o afib with prior ?embolic CVA 05/2014 ([facility]) right visual field cut, syncope 09/19 with ICH at that time vs other entity on MRI and recurrent syncope 12/2015 (unclear etiology), Non-ischemic cardiomyopathy dx 2013 at [facility], HTN, HPL, Rt carotid stenosis, IDDM, RLE cellulitis s/p debridement, MSSA bacteremia 10/2015, DAMIAN not on home cpap, ckd, who presents with sob. sob, acute systolic HF exacerbation (NICM), PNA - admitted last month for chf and diuresed to wt in 340s. Had been feeling well for a whole month on torsemide 60 until day before admit when he noticed decreased UOP and sob. Here in ER his wt is at baseline and does not appear grossly vol overloaded. Can continue with trial of iv lasix 80 bid which has diruesed him well in past. Also getting abx for PNA. 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 Contrast enhancing lesion seen 06/19 and the prior heme on MRI were in same location and was thought to be most likely 2/2 post CVA hemorrhagic conversion (i.e. without hi risk for recurrent ICH). Less likely low-grade glioma, which would have very low risk of bleeding if AC resumed--hence the recs at that time were for usual AC considerations for his afib, no special precautions (pt failed repeatedly to f/u with neuro as outpatient, and then worsening renal fxn made him hi risk for morena when here last time). -warfarin changed to eliquis on past admits due to pt's repeated refusal to f/u with cardiology or have reliable INRs and make rec'd coumadin dose change, with worrisome CHADS-VASC 6 = estimated risk 9-10%/year, and hence concern he will stroke again on warfarin. - now on eliquis - Con't home regimen toprol 150 mg bid, rate controlled, monitor on tele cad: -managed medically, no angina/ACS/ischemia since -Here with borderline elevation in troponin, flat trend, consistent with prior baseline values. no signs acs, instead likely due to CHF and CKD. -continue home statin, bb, imdur, hydralazine -con't to defer ASA as pt with stable CAD in past and also on AC R carotid stenosis: -ADRIENNE with PSV in high 200s cm/sec here, suspicious for >70% stenosis per radiology report -vascular surgery c/s on prior admit felt stenosis is at MOST 70% (deferred further imaging with contrast due to low GFR). Recommended deferring CEA unless imaging suggested >80% stenosis, or if he developed symptoms/acute cerebrovascular event. Syncope, ? CVA/TIA (recurrent) - Previously pt had episodes of orthostatic hypotension sec to bp meds and diuretics. - similar symptoms at time of possible hemorrhagic CVA in 2014 (collapsed at home then), see discussion below. - had transient neurologic symptoms (speech disturbance) in 12/2015 but not thought to have had TIA per neuro. - Now with recurrent dizziness, but without neurologic symptoms/deficits. Improved with diuresis. Ao dilation - Con't bb. Routine outpatient surveillance CKD: - baseline cr 2.5-2.6 - stable, continue to monitor with diuresis
[2016-03-27] MEDS: METOPROLOL SUCCINATE 100 MG TAB.SR.24H (FP) PO SCH ×2 (10:45→21:00)
[2016-03-27] MEDS: amLODIPine BESYLATE 5 MG TABLET (FP) PO SCH (10:45)
[2016-03-27] MEDS: NYSTATIN 100,000 UNIT/GM TOPICAL CREAM 15 GM TUBE TP SCH ×2 (10:46→21:13)
[2016-03-27] MEDS: APIXABAN 5 MG TABLET PO SCH ×2 (10:46→21:00)
[2016-03-27] MEDS: ISOSORBIDE MONONITRATE 60 MG TAB.SR.24H (FP) PO SCH ×2 (10:46→21:00)
--- NOTE | 2016-03-27 13:08 | PN ---
Progress Note, Physician History of Present Illness: still sob but feels much better - Current Medication List Current Medications: Active Medications Amlodipine Besylate (Norvasc -) 5 mg PO DAILY [facility] Last Admin: 03/27/16 10:45 Dose: 5 mg Apixaban (Eliquis -) 5 mg PO BID [facility] Last Admin: 03/27/16 10:46 Dose: 5 mg Atorvastatin Calcium (Lipitor -) 10 mg PO HS [facility] Last Admin: 03/26/16 21:58 Dose: 10 mg Furosemide (Lasix Injection -) 80 mg IVPUSH BID@0600,1400 [facility] Last Admin: 03/27/16 06:14 Dose: 80 mg Hydralazine HCl (Apresoline -) 100 mg PO TID [facility] Last Admin: 03/27/16 06:14 Dose: 100 mg Piperacillin Sod/Tazobactam Sod (Zosyn 3.375gm Ivpb (Pre-Docked)) 50 mls @ 100 mls/hr IVPB Q8H-IV [facility] PRN Reason: Protocol Last Admin: 03/27/16 10:45 Dose: 100 mls/hr Clindamycin Phosphate (Cleocin 300 Mg Premix Ivpb) 50 mls @ 100 mls/hr IVPB Q8H -IV [facility] Last Admin: 03/27/16 10:45 Dose: 100 mls/hr Isosorbide Mononitrate (Imdur -) 60 mg PO BID [facility] Last Admin: 03/27/16 10:46 Dose: 60 mg Metoprolol Succinate (Toprol Xl -) 150 mg PO BID [facility] Last Admin: 03/27/16 10:45 Dose: 150 mg Nystatin (Mycostatin Cream -) 1 applic TP BID [facility] Last Admin: 03/27/16 10:46 Dose: 1 applic - Objective Vital Signs: Vital Signs Temperature 97.5 F L 03/27/16 10:00 Pulse Rate 105 H 03/27/16 10:00 Respiratory Rate 18 03/27/16 10:00 Blood Pressure 124/55 03/27/16 10:00 O2 Sat by Pulse Oximetry (%) 96 03/26/16 21:00 Constitutional: Yes: No Distress, Calm Cardiovascular: Yes: Pulse Irregular Respiratory: Yes: Regular, Poor Air Entry Gastrointestinal: Yes: Normal Bowel Sounds, Soft Edema: LLE: 1+, RLE: 1+ Neurological: Yes: Alert, Oriented Psychiatric: Yes: Alert Labs: CBC, BMP 03/27/16 05:35 03/27/16 05:35 INR, PTT INR 1.21 (0.82-1.09) H 03/26/16 01:42 Assessment/Plan 1. CHF Exacerbation 2. Chest Pain 3. Afib With RVR 4. CKD 5. HTN 6. HLD 7. CVA 8 PNA 9 leukocytosis plan continue abx wbc still on higher side once patient is stable will deescalate incentive jackson
--- NOTE | 2016-03-27 13:16 | PN ---
Physical Exam: SUBJECTIVE: Patient seen and examined at bedside. AAOx3. Pt. states that he feels like he is breathing better today and he is able to lie down at a 50 degree angle. Pt. states he is able to walk down the hallway without becoming SOB. Pt. states he is making "a lot" of urine. No other complaints at this time. Denies chest pain, SOB, dyspnea OBJECTIVE: Vital Signs Period Temp Pulse Resp BP Sys/Perez Pulse Ox Last 24 Hr 97.4 F-98.4 F 90-110 18-18 111-151/55-90 96 GENERAL: The patient is awake, alert, and fully oriented, in no acute distress. HEAD: Normal with no signs of trauma. EYES: PERRL, extraocular movements intact, sclera anicteric, conjunctiva clear. No ptosis. ENT: Ears normal, nares patent, oropharynx clear without exudates, moist mucous membranes. NECK: Trachea midline, full range of motion, supple. LUNGS: Breath sounds diminished at the bases. No wheezes, no crackles, no accessory muscle use. HEART: Irregular rate and rhythm, S1, S2 without murmur, rub or gallop. ABDOMEN: Soft, nontender, nondistended, normoactive bowel sounds, no guarding, no rebound, no hepatosplenomegaly, no masses. EXTREMITIES: 2+ pulses, warm, well-perfused, 2+ pitting edema. NEUROLOGICAL: Cranial nerves II through XII grossly intact. Normal speech, gait not observed. PSYCH: Normal mood, normal affect. SKIN: Warm, dry, normal turgor, no rashes or lesions noted Laboratory Results - last 24 hr 03/26/16 03/27/16 03/27/16 14:20 05:35 05:35 WBC 13.1 H RBC 4.60 Hgb 13.0 Hct 40.1 MCV 87.2 MCHC 32.3 RDW 18.0 H Plt Count 219 MPV 8.0 Neutrophils % 79.0 Lymphocytes % 9.1 D Monocytes % 8.4 Eosinophils % 2.7 Basophils % 0.8 D Sodium 140 Potassium 3.4 L Chloride 102 Carbon Dioxide 27 Anion Gap 11 BUN 37 H Creatinine 2.6 H Creat Clearance w eGFR 25.95 Random Glucose 135 H D Calcium 8.2 L Phosphorus 4.3 D Magnesium 2.1 Total Bilirubin 1.5 H D AST 17 ALT 11 L Alkaline Phosphatase 148 H Creatine Kinase 106 Troponin I 0.09 H Total Protein 6.5 Albumin 2.5 L Active Medications Generic Name Dose Route Start Last Admin Trade Name Brianna PRN Reason Stop Dose Admin Amlodipine Besylate 5 mg 03/26/16 10:00 03/27/16 10:45 Norvasc - PO 5 mg DAILY ANURADHA Administration Apixaban 5 mg 03/26/16 10:00 03/27/16 10:46 Eliquis - PO 5 mg BID ANURADHA Administration Atorvastatin Calcium 10 mg 03/26/16 22:00 03/26/16 21:58 Lipitor - PO 10 mg HS ANURADHA Administration Furosemide 80 mg 03/26/16 14:00 03/27/16 06:14 Lasix Injection - IVPUSH 80 mg BID@0600,1400 ANURADHA Administration Hydralazine HCl 100 mg 03/26/16 14:00 03/27/16 06:14 Apresoline - PO 100 mg TID ANURADHA Administration Piperacillin Sod/Tazobactam Sod 50 mls @ 100 mls/hr 03/26/16 18:00 03/27/16 10: 45 Zosyn 3.375gm Ivpb (Pre-Docked) IVPB 100 mls/hr Q8H-IV ANURADHA Administration Protocol Clindamycin Phosphate 50 mls @ 100 mls/hr 03/26/16 18:00 03/27/16 10:45 Cleocin 300 Mg Premix Ivpb IVPB 100 mls/hr Q8H-IV ANURADHA Administration Isosorbide Mononitrate 60 mg 03/26/16 10:00 03/27/16 10:46 Imdur - PO 60 mg BID ANRUADHA Administration Metoprolol Succinate 150 mg 03/26/16 10:00 03/27/16 10:45 Toprol Xl - PO 150 mg BID ANURADHA Administration Nystatin 1 applic 03/26/16 22:00 03/27/16 10:46 Mycostatin Cream - TP 1 applic BID ANURADHA Administration ASSESSMENT/PLAN: Pt. is a 55 y/o male who has a PMH of IDDM, CHF, Afib, CAD, CVA (Ischemic 05/20, hemorrhagic (?) 06/19), CKD, renal insufficiency, HTN, hyperlipidemia, cirrhosis who was admitted on 03/26/16 for PNA and CHF exacerbation. Acute on chronic systolic heart failure -- clinically improved, less SOB, resolving lower extremity edema; will follow elevated bili 1.5 likely secondary to hepatocongestion -- Continue with high dose Lasix for diuresis, aware of mild bump in Cr 2.4-->2.6 but still at baseline function -- Continue with amlodipine, metoprolol, hydralazine -- Sodium restricted diet -- Daily weights -- Strict I&O's Atrial Fibrillation on Anticoagulation -- rate in 100s, continue with Metoprolol for rate control -- CHADS-VASc2 score 6. High risk for future event. -- Given history of stroke while off anticoagulation, will continue anticoagulation and monitor. Continue Eliquis for anticoagulation. CAD --flat trending troponins likely secondary to CHF --continue Torpol XL, amlodipine, Lipitor --per cardiology, no indication for ASA at this time since CAD stable and on a/c HTN --continue Toprol, amlodipine, hydralazine. Hyperlipidemia -- Continue atorvastatin Bacterial hospital acquired pneumonia -- Pt. has been admitted to the hospital within the past month. -- CXR shows RLL pneumonia, mild leukocytosis of 13.1 today. -- Will treat with broad spectrum antibiotics to cover hospital acquired pneumonia. -- Continue with IV Clindamycin (day 2) and IV Zosyn (day 2) IDDM -- Random glucose this morning 135 -- Re-started on home dose Levemir 28units -- Novolog sliding scale coverage -- Finger sticks at night and before meals. CKD -- BUN is 37 up from, Cr is 2.6 up from 2.4 yesterday -- Baseline Cr is 2.5-2.6 -- Will continue with diuresis at this time. Hypkalemia --repleted History of ischemic CVA (05/20), possible hemorrhagic stroke (06/19) --stable, no acute issues F/E/N 1. Fluids PO as tolerated 2. Replenish electrolytes as needed 3. Low salt diet DVT prophlyaxis: Pt is on Eliquis, OOB with walking Dispo: Pt. continues to require inpatient care. Full code status. Visit type - Emergency Visit Emergency Visit: Yes ED Registration Date: 03/26/16 Care time: The patient presented to the Emergency Department on the above date and was hospitalized for further evaluation of their emergent condition. - New Patient This patient is new to me today: Yes Date on this admission: 03/27/16 - Critical Care Critical Care patient: No
--- NOTE | 2016-03-27 14:07 | CONSULT ---
Consult Consult Specialty:: Nephrology ( Drs. Aragon/ Edmundo) Reason for Consultation:: Many thanks for this consult referral. 55 y/o male with very complex medical problems, admitted with chest pain and the finding of Plneumonia. He has long standing hx of DM2, CHF, Hypertension, A Fib, CKD3, CVA , with right sided weakness, Hyperlipidemia. The patient has never been seen by a Rig Site Engineer in the past. Has profound Hematuria. - History Source History Provided By: Patient, Medical Record - Past Medical History LANDSCAPER: Yes: CVA (On 06/02/14 while in [facility]; right visual field cut), Other (hemorrhagic post. circualtion cerebral infarction while on anticoagulation therapy.) Cardio/Vascular: Yes: AFIB (Last dose Xarelto about two weeks ago; on heparin drip thru 06/11/14), CHF (Systolic), HTN, Hyperlipdemia, Other (Non-ischemic cardiomyopathy diagnosed 07/19 at [facility]) Pulmonary: Yes: Sleep Apnea (Not on home CPAP) Renal/: Yes: Renal Failure, Renal Inusuff, Other (Frequent urination) Infectious Disease: Yes: Other (right foot abcess) Endocrine: Yes: Diabetes Mellitus - Alcohol/Substance Use Hx Alcohol Use: Yes (SOCIALLY) History of Substance Use: reports: None - Smoking History Smoking history: Never smoked Have you smoked in the past 12 months: No - Social History Usual Living Arrangement: Alone ADL: Independent Home Medications - Allergies Allergies/Adverse Reactions: Allergies Allergy/AdvReac Type Severity Reaction Status Date / Time ciprofloxacin [From Cipro] Allergy Severe Rash Verified 03/26/16 01:37 ciprofloxacin HCl Allergy Severe Rash Verified 03/26/16 01:37 [From Cipro] - Home Medications Home Medications: Ambulatory Orders Insulin (Novolog) [Novolog Flexpen -] 4 units SQ AC #1 pen 09/07/14 Atorvastatin Ca [Lipitor] 10 mg PO HS #30 tablet 02/26/15 Hydralazine HCl [Apresoline -] 100 mg PO TID #90 tablet 02/26/15 Insulin (Levemir) [Levemir Vial] 28 units SQ HS #7 ml 02/26/15 Isosorbide Mononitrate [Imdur -] 60 mg PO BID #60 tab.sr.24h 02/26/15 Metoprolol Succinate [Toprol XL -] 150 mg PO BID #60 tab.sr.24h 02/26/15 Amlodipine Besylate [Norvasc -] 5 mg PO DAILY #30 tablet 10/29/15 Apixaban [Eliquis -] 5 mg PO BID #60 tablet 10/29/15 Torsemide [Demadex -] 60 mg PO DAILY #90 tablet 12/20/15 Family Disease History - Family Disease History Family Disease History: Heart Disease: Mother ([place] 60's) Review of Systems - Review of Systems Constitutional: reports: Weakness Cardiovascular: reports: Chest Pain, Edema, Palpitations, Shortness of Breath Respiratory: reports: Cough, Orthopnea, Snoring, Wheezing Gastrointestinal: reports: Bloating Genitourinary: reports: Frequency, Other (Nocturia) Physical Exam Vital Signs: Vital Signs Temperature 97.5 F L 03/27/16 10:00 Pulse Rate 105 H 03/27/16 10:00 Respiratory Rate 18 03/27/16 10:00 Blood Pressure 124/55 03/27/16 10:00 O2 Sat by Pulse Oximetry (%) 96 03/26/16 21:00 Constitutional: Yes: Well Nourished, Calm HENT: Yes: Atraumatic, Normocephalic Neck: Yes: Trachea Midline Cardiovascular: Yes: Pulse Irregular, S1, S2, S4 Respiratory: Yes: Diminished, Poor Air Entry Gastrointestinal: Yes: Soft, Abdomen, Obese Musculoskeletal: Yes: Back Pain, Joint Stiffness, Joint Swelling Extremities: Yes: Erythema (Both LE) Edema: Yes Edema: LLE: 2+, RLE: 2+ Neurological: Yes: Alert, Oriented Psychiatric: Yes: Alert, Oriented Labs: CBC, BMP 03/27/16 05:35 03/27/16 05:35 Problem List - Problems (1) Acute exacerbation of CHF (congestive heart failure) Code(s): I50.9 - HEART FAILURE, UNSPECIFIED (2) Acute renal failure Code(s): N17.9 - ACUTE KIDNEY FAILURE, UNSPECIFIED (3) CHF (congestive heart failure) Code(s): I50.9 - HEART FAILURE, UNSPECIFIED Qualifiers: (4) Shortness of breath Code(s): R06.02 - SHORTNESS OF BREATH (5) Acute on chronic renal failure Code(s): N17.9 - ACUTE KIDNEY FAILURE, UNSPECIFIED N18.9 - CHRONIC KIDNEY DISEASE, UNSPECIFIED (6) Anasarca Code(s): R60.1 - GENERALIZED EDEMA (7) Atrial fibrillation Code(s): I48.91 - UNSPECIFIED ATRIAL FIBRILLATION (8) Chest pain Code(s): R07.9 - CHEST PAIN, UNSPECIFIED (9) Diabetes mellitus Code(s): E11.9 - TYPE 2 DIABETES MELLITUS WITHOUT COMPLICATIONS (10) Diabetic foot ulcer Code(s): E11.621 - TYPE 2 DIABETES MELLITUS WITH FOOT ULCER L97.509 - NON-PRESSURE CHRONIC ULCER OTH PRT UNSP FOOT W UNSP SEVERITY Qualifiers: Diabetes mellitus type: type 2 Laterality: right Qualified Code(s) : E11.621 - Type 2 diabetes mellitus with foot ulcer; L97.509 - Non-pressure chronic ulcer of other part of unspecified foot with unspecified severity (11) Edema Code(s): R60.9 - EDEMA, UNSPECIFIED (12) Fever and chills Code(s): R50.9 - FEVER, UNSPECIFIED (13) Hypertension Code(s): I10 - ESSENTIAL (PRIMARY) HYPERTENSION (14) Morbid obesity with BMI of 45.0-49.9, adult Code(s): Z68.42 - BODY MASS INDEX (BMI) 45.0-49.9, ADULT (15) New onset atrial fibrillation Code(s): I48.91 - UNSPECIFIED ATRIAL FIBRILLATION (16) Proteinuria Code(s): R80.9 - PROTEINURIA, UNSPECIFIED (17) Systolic CHF, acute on chronic Code(s): I50.23 - ACUTE ON CHRONIC SYSTOLIC (CONGESTIVE) HEART FAILURE (18) Uncontrolled hypertension Code(s): I10 - ESSENTIAL (PRIMARY) HYPERTENSION (19) CKD (chronic kidney disease) Code(s): N18.9 - CHRONIC KIDNEY DISEASE, UNSPECIFIED Assessment/Plan 55 y/o male admitted with Acute chest pain. 1. Known to have coronary artery disease. 2. Congestive heart failute, slowly resoving. 3. Advanced Chronic Kidney disease, most likely due to Microvascular Renal disease ( Diabetes/ Hypertension) 4. Acute superimposed Renal failure can not be ruled out due to unstable hemodynamic factors. 5. Urinary frequency and marked nocturia. Need to r/o outlet obstruction. 6. Mild Hypokalemia may be diuretic mediated. Plan: Basic w/u as ordered. Renal and Pelvic imaging. Will monitor the renal functions closely. Will give oral KCl supplements. Will also check Serum Mg. Thanks again. Veronique Aragon MD
[2016-03-27] MEDS: POTASSIUM CHLORIDE TABS 20 MEQ TABLET.ER (FP) PO SCH ×2 (14:24→21:00)
[2016-03-27] MEDS ORDERED: PT OWN MED DRAWER 7, Y5N ONE (18:19)
[2016-03-27] MEDS: INSULIN SLIDING SCALE (NOVOLOG) 1 VIAL SQ SCH ×2 (18:28→21:03)
[2016-03-27] MEDS: ATORVASTATIN CA 10 MG TABLET (FP) PO SCH (21:00)
[2016-03-27] MEDS: INSULIN DETEMIR 100 UNITS/ML MDV SQ SCH (21:12)
[2016-03-28] MEDS ORDERED: PT OWN MED DRAWER 7, Y5N ONE (01:03)
[2016-03-28] MEDS: CLINDAMYCIN 300 MG PREMIX IVPB 50 ML IVPB SCH ×3 (01:07→17:10)
[2016-03-28] MEDS: PIPERACILLIN/TAZOB 3.375 GM 50 ML IVPB SCH ×3 (01:07→17:10)
[2016-03-28] MEDS: INSULIN SLIDING SCALE (NOVOLOG) 1 VIAL SQ SCH ×4 (06:19→21:36)
[2016-03-28] MEDS: FUROSEMIDE 40 MG/4 ML INJECTABLE VIAL IVPUSH SCH (06:20)
[2016-03-28] MEDS: hydrALAZINE HCL 50 MG TABLET (FP) PO SCH ×3 (06:20→21:36)
[2016-03-28 07:14] LABS: BASOPHIL 0.8 % (0-2.0); EOSINOPHIL 3.4 % (0-4.5); MCH 28.8 pg (25.7-33.7); MCHC 32.8 g/dl (32.0-35.9); MEAN CELL VOLUME 87.6 fl (80-96); NEUTROPHILS 75.2 % (42.8-82.8); PLATELET COUNT 225 K/MM3 (134-434); RDW 18.1 % (11.9-15.9); WHITE BLOOD COUNT 13.6 K/mm3 (4.0-10.0)
[2016-03-28 08:12] LABS: ALBUMIN 2.5 g/dl (3.4-5.0); FREE T4 1.27 ng/dl (0.76-1.16); MAGNESIUM 2.1 mg/dL (1.8-2.4)
[2016-03-28 08:28] LABS: PHOSPHOROUS 4.6 mg/dL (2.5-4.9); TOT PROT 6.2 g/dl (6.4-8.2)
[2016-03-28] MEDS: ISOSORBIDE MONONITRATE 60 MG TAB.SR.24H (FP) PO SCH ×2 (09:14→21:35)
[2016-03-28] MEDS: APIXABAN 5 MG TABLET PO SCH ×2 (09:14→21:36)
[2016-03-28] MEDS: METOPROLOL SUCCINATE 100 MG TAB.SR.24H (FP) PO SCH ×2 (09:14→21:35)
[2016-03-28] MEDS: NYSTATIN 100,000 UNIT/GM TOPICAL CREAM 15 GM TUBE TP SCH ×2 (09:15→21:36)
[2016-03-28] MEDS: amLODIPine BESYLATE 5 MG TABLET (FP) PO SCH (09:15)
[2016-03-28] MEDS: TAMSULOSIN HCL 0.4 MG CAP.ER.24H (FP) PO SCH (11:34)
--- NOTE | 2016-03-28 11:59 | PN ---
Progress Note (short form) - Note Progress Note: CC: sob s: no cp palps dizzy; sob back to baseline. orthopnea resolved. no bleeding o: Current Medications Amlodipine Besylate (Norvasc -) 5 mg PO DAILY [facility] Last Admin: 03/28/16 09:15 Dose: 5 mg Apixaban (Eliquis -) 5 mg PO BID [facility] Last Admin: 03/28/16 09:14 Dose: 5 mg Atorvastatin Calcium (Lipitor -) 10 mg PO HS [facility] Last Admin: 03/27/16 21:00 Dose: 10 mg Furosemide (Lasix Injection -) 80 mg IVPUSH BID@0600,1400 [facility] Last Admin: 03/28/16 06:20 Dose: 80 mg Hydralazine HCl (Apresoline -) 100 mg PO TID [facility] Last Admin: 03/28/16 06:20 Dose: 100 mg Piperacillin Sod/Tazobactam Sod (Zosyn 3.375gm Ivpb (Pre-Docked)) 50 mls @ 100 mls/hr IVPB Q8H-IV [facility] PRN Reason: Protocol Last Admin: 03/28/16 09:14 Dose: 100 mls/hr Clindamycin Phosphate (Cleocin 300 Mg Premix Ivpb) 50 mls @ 100 mls/hr IVPB Q8H -IV [facility] Last Admin: 03/28/16 09:15 Dose: 100 mls/hr Insulin Aspart (Novolog Vial Sliding Scale -) 1 vial SQ ACHS [facility] PRN Reason: Protocol Last Admin: 03/28/16 11:34 Dose: Not Given Insulin Detemir (Levemir Vial) 28 units SQ HS [facility] Last Admin: 03/27/16 21:12 Dose: 28 units Isosorbide Mononitrate (Imdur -) 60 mg PO BID [facility] Last Admin: 03/28/16 09:14 Dose: 60 mg Metoprolol Succinate (Toprol Xl -) 150 mg PO BID [facility] Last Admin: 03/28/16 09:14 Dose: 150 mg Nystatin (Mycostatin Cream -) 1 applic TP BID [facility] Last Admin: 03/28/16 09:15 Dose: 1 applic Tamsulosin HCl (Flomax -) 0.4 mg PO DAILY@0830 [facility] Last Admin: 03/28/16 11:34 Dose: 0.4 mg Vital Signs - 24 hr 03/27/16 03/27/16 03/27/16 14:35 18:00 21:00 Temperature 98.0 F 97.6 F Pulse Rate 98 H 101 H Respiratory 20 19 Rate Blood Pressure 121/68 160/85 O2 Sat by Pulse 96 Oximetry (%) 03/27/16 03/28/16 03/28/16 22:00 01:47 06:00 Temperature 98.8 F 97.4 F L 97 F L Pulse Rate 97 H 102 H 99 H Respiratory 18 18 20 Rate Blood Pressure 132/59 104/54 145/94 O2 Sat by Pulse Oximetry (%) 03/28/16 03/28/16 03/28/16 07:50 08:00 10:59 Temperature 98 F Pulse Rate 94 H 112 H Respiratory 22 22 Rate Blood Pressure 113/85 O2 Sat by Pulse 95 94 L Oximetry (%) Intake & Output 03/26/16 03/27/16 03/28/16 03/29/16 07:59 07:59 07:59 07:59 Intake Total 670 740 245 Output Total 1000 Balance 670 -260 245 Weight 340 lb 340 lb 339 lb 9.6 oz Constitutional: Yes: No Distress, Obese Eyes: No: Sclera Icterus Respiratory: cta bl nl eff No: Accessory Muscle Use Gastrointestinal: Yes: Normal Bowel Sounds. obese No: Distention, Hepatomegaly, Palpable Mass, tenderness Cardiovascular: Yes: Irregular Rate and Rhythm JVD: tds Heart Sounds: Yes: nl, S1, S2. No: Gallop Murmur: No: Systolic Murmur, Diastolic Murmur Edema: trace LE bl, erythema of shins bl Integumentary: No: Jaundice diaphoresis Neurological: Yes: Alert, Oriented (x3) Psychiatric: No: Agitated CBC, BMP 03/28/16 05:35 03/28/16 05:35 Laboratory Tests 03/28/16 05:35 Magnesium 2.1 Total Bilirubin 1.0 D AST 15 ALT 11 L Alkaline Phosphatase 144 H Albumin 2.5 L Free T4 1.27 H EKG 03/25/16: afib, vr 111, nonspecific tw changes, no st changes CXR: congestion, infiltrates repeat CXR 03/28 images and report reviewed. No infiltrates per report ,but by my review with increased markings and fluid in fissure. Difficult to assess bases but may have small bilateral effusion. However, overall improved from CXR on admission. Echo 10/2015: Moderately decreased LV function (global). Nl RV size/fn. 1+ MR. mild-mod TR. mild ao dilation. Trivial effusion. cath 06/2013: 60-70 rpl1, 80-90 d1, subtotal om1 MIBI 08/2014 (pers): no STs; no ischemia seen; predominantly fixed medium-sized inferior/basal inferolat/apico-inferior defect c/w diaphragm attenuation; EF 46% tele: afib, rate controlled 90's- low 100's. Rare brief RVR. no significant pauses. a/p: 55 yo with h/o afib with prior ?embolic CVA 05/2014 ([facility]) right visual field cut, syncope 09/19 with ICH at that time vs other entity on MRI and recurrent syncope 12/2015 (unclear etiology), Non-ischemic cardiomyopathy dx 2013 at [facility], HTN, HPL, Rt carotid stenosis, IDDM, RLE cellulitis s/p debridement, MSSA bacteremia 10/2015, DAMIAN not on home cpap, ckd, who presents with sob. sob, acute systolic HF exacerbation (NICM), PNA - admitted last month for chf and diuresed to wt in 340s. Had been feeling well for a whole month on torsemide 60 until day before admit when he noticed decreased UOP and sob. Here in ER his wt is at baseline and does not appear grossly vol overloaded. Given trial of iv lasix 80 bid which has diruesed him well in past. Also getting abx for PNA. - 03/28: CXR still with possible mild congestion, but significantly improved. LFT's normalizing and creatinine now worsened. Will switch to PO regimen. will try slightly higher dose of torsemide (80 mg daily.) - monitor Cr, daily standing weights and bmp. - cont home LV dysfxn regimen: bb, imdur/hydralazine (not on kaylan/arb 2/2 ckd) - mgm't of pna per pmd/ID. 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 Contrast enhancing lesion seen 06/19 and the prior heme on MRI were in same location and was thought to be most likely 2/2 post CVA hemorrhagic conversion (i.e. without hi risk for recurrent ICH). Less likely low-grade glioma, which would have very low risk of bleeding if AC resumed--hence the recs at that time were for usual AC considerations for his afib, no special precautions (pt failed repeatedly to f/u with neuro as outpatient, and then worsening renal fxn made him hi risk for morena when here last time). -warfarin changed to eliquis on past admits due to pt's repeated refusal to f/u with cardiology or have reliable INRs and make rec'd coumadin dose change, with worrisome CHADS-VASC 6 = estimated risk 9-10%/year, and hence concern he will stroke again on warfarin. - now on eliquis - recurrent episodes of worsening kidney function > 2.5 (eliquis not typically used in this setting). But b/c of limited other options for AC will continue unless renal consult feels that it is unsafe. No signs of bleeding. - Con't home regimen toprol 150 mg bid, rate controlled, monitor on tele cad: -managed medically, no angina/ACS/ischemia since -Here with borderline elevation in troponin, flat trend, consistent with prior baseline values. no signs acs, instead likely due to CHF and CKD. -continue home statin, bb, imdur, hydralazine -con't to defer ASA as pt with stable CAD in past and also on AC R carotid stenosis: -ADRIENNE with PSV in high 200s cm/sec here, suspicious for >70% stenosis per radiology report -vascular surgery c/s on prior admit felt stenosis is at MOST 70% (deferred further imaging with contrast due to low GFR). Recommended deferring CEA unless imaging suggested >80% stenosis, or if he developed symptoms/acute cerebrovascular event. Ao dilation - Con't bb. Routine outpatient surveillance CKD: - baseline cr 2.5-2.6 - slight worsening, diuresis plan as mentioned above. Renal following.
--- NOTE | 2016-03-28 12:19 | PN ---
Physical Exam: SUBJECTIVE: Patient seen and examined bedside. Pt. reports he is feeling much better and that his breathing has improved. OBJECTIVE: Vital Signs Period Temp Pulse Resp BP Sys/Perez Pulse Ox Last 24 Hr 97 F-98.8 F 94-112 18- 104-160/54-94 94-96 GENERAL: The patient is awake, alert, and fully oriented, in no acute distress. HEAD: Normal with no signs of trauma. EYES: PERRL, extraocular movements intact, sclera anicteric, conjunctiva clear. No ptosis. ENT: Ears normal, nares patent, oropharynx clear without exudates, moist mucous membranes. NECK: Trachea midline, full range of motion, supple. LUNGS: RLL breath sounds are distant. Clear to auscultation bilaterally, no wheezes, no crackles, no accessory muscle use. HEART: Irregular rate and rhythm, S1, S2 without murmur, rub or gallop. ABDOMEN: Soft, nontender, nondistended, normoactive bowel sounds, no guarding, no rebound, no hepatosplenomegaly, no masses. EXTREMITIES: 2+ pulses, warm, well-perfused, trace pedal edema. Chronic venous stasis changes. NEUROLOGICAL: Cranial nerves II through XII grossly intact. Normal speech, gait not observed. PSYCH: Normal mood, normal affect. SKIN: Warm, dry, normal turgor, no rashes or lesions noted Laboratory Results - last 24 hr 03/27/16 03/27/16 03/28/16 17:25 21:02 04:58 WBC RBC Hgb Hct MCV MCHC RDW Plt Count MPV Neutrophils % Lymphocytes % Monocytes % Eosinophils % Basophils % Sodium Potassium Chloride Carbon Dioxide Anion Gap BUN Creatinine Creat Clearance w eGFR POC Glucometer 160 189 111 Random Glucose Calcium Phosphorus Magnesium Total Bilirubin AST ALT Alkaline Phosphatase Total Protein Albumin Free T4 03/28/16 03/28/16 03/28/16 05:35 05:35 11:34 WBC 13.6 H RBC 4.50 Hgb 12.9 Hct 39.4 MCV 87.6 MCHC 32.8 RDW 18.1 H Plt Count 225 MPV 8.0 Neutrophils % 75.2 Lymphocytes % 10.5 Monocytes % 10.1 Eosinophils % 3.4 Basophils % 0.8 Sodium 141 Potassium 3.8 Chloride 105 Carbon Dioxide 25 Anion Gap 11 BUN 40 H Creatinine 3.0 H Creat Clearance w eGFR 22.00 POC Glucometer 137 Random Glucose 99 D Calcium 8.0 L Phosphorus 4.6 Magnesium 2.1 Total Bilirubin 1.0 D AST 15 ALT 11 L Alkaline Phosphatase 144 H Total Protein 6.2 L Albumin 2.5 L Free T4 1.27 H Active Medications Generic Name Dose Route Start Last Admin Trade Name Brianna PRN Reason Stop Dose Admin Amlodipine Besylate 5 mg 03/26/16 10:00 03/28/16 09:15 Norvasc - PO 5 mg DAILY ANURADHA Administration Apixaban 5 mg 03/26/16 10:00 03/28/16 09:14 Eliquis - PO 5 mg BID ANURADHA Administration Atorvastatin Calcium 10 mg 03/26/16 22:00 03/27/16 21:00 Lipitor - PO 10 mg HS ANURADHA Administration Furosemide 80 mg 03/26/16 14:00 03/28/16 06:20 Lasix Injection - IVPUSH 80 mg BID@0600,1400 ANURADHA Administration Hydralazine HCl 100 mg 03/26/16 14:00 03/28/16 06:20 Apresoline - PO 100 mg TID ANURADHA Administration Piperacillin Sod/Tazobactam Sod 50 mls @ 100 mls/hr 03/26/16 18:00 03/28/16 09: 14 Zosyn 3.375gm Ivpb (Pre-Docked) IVPB 100 mls/hr Q8H-IV AUNRAD[facility] Administration Protocol Clindamycin Phosphate 50 mls @ 100 mls/hr 03/26/16 18:00 03/28/16 09:15 Cleocin 300 Mg Premix Ivpb IVPB 100 mls/hr Q8H-IV ANURADHA Administration Insulin Aspart 1 vial 03/27/16 16:30 03/28/16 11:34 Novolog Vial Sliding Scale - SQ Not Given ACHS [facility] Protocol Insulin Detemir 28 units 03/27/16 22:00 03/27/16 21:12 Levemir Vial SQ 28 units HS ANURADHA Administration Isosorbide Mononitrate 60 mg 03/26/16 10:00 03/28/16 09:14 Imdur - PO 60 mg BID ANURADHA Administration Metoprolol Succinate 150 mg 03/26/16 10:00 03/28/16 09:14 Toprol Xl - PO 150 mg BID ANURAHDA Administration Nystatin 1 applic 03/26/16 22:00 03/28/16 09:15 Mycostatin Cream - TP 1 applic BID ANURADHA Administration Tamsulosin HCl 0.4 mg 03/28/16 11:15 03/28/16 11:34 Flomax - PO 0.4 mg DAILY@0830 ANURADHA Administration ASSESSMENT/PLAN: Imaging: CXR 03/26/16: Worsening progressive bilateral pulmonary and pleural changes. Large heart. Unfolded aorta CXR 03/28/16: No evidence of active pulmonary disease Pt. is a 55 y/o male who has a PMH of IDDM, CHF, Afib, CAD, CVA (Ischemic 05/20, hemorrhagic (?) 06/19), CKD, renal insufficiency, HTN, hyperlipidemia, cirrhosis who was admitted on 03/26/16 for PNA and CHF exacerbation. Acute on chronic systolic heart failure (NICM) -- Clinically improved, less SOB, resolving lower extremity edema; Bili today is 1.0 down from yesterday (1.5) -- Bump past baseline in Cr, 2.6 --> 3.0 today. Bun 40 up from 35. Cardiology consult appreciated. Will switch IV lasix back to PO torsemide. -- Will continue to monitor kidney function. --Continue with amlodipine, metoprolol, hydralazine. -- Sodium restricted diet -- Daily weights -- Strict I&O's Bacterial hospital acquired pneumonia -- Pt. has been admitted to the hospital within the past month. -- CXR on 03/26/16 shows RLL pneumonia. -- CXR today shows no evidence of active pulmonary disease. -- Will consult with ID to see if we can switch to PO antibiotics at this time, or if we can stop them all together. Pts leukocytosis appears to be chronic. -- Will treat with broad spectrum antibiotics to cover hospital acquired pneumonia. -- Continue with IV Clindamycin (day 2) and IV Zosyn (day 2) Atrial Fibrillation on Anticoagulation -- Rate in 100s, continue with Metoprolol for rate control -- CHADS-VASc2 score 6. High risk for future event. -- Given history of stroke while off anticoagulation, will continue anticoagulation and monitor. Continue Eliquis for anticoagulation. CAD --flat trending troponins likely secondary to CHF --continue Torpol XL, amlodipine, Lipitor --per cardiology, no indication for ASA at this time since CAD stable and on a/c HTN --continue Toprol, amlodipine, hydralazine. Hyperlipidemia -- Continue atorvastatin IDDM -- Random glucose this morning 135 -- Re-started on home dose Levemir 28units -- Novolog sliding scale coverage -- Finger sticks at night and before meals. CKD -- BUN is 40 up from 37, Cr is 3.0 up from 2.6 yesterday. Cr has been trending upward slowly since admission. Possibly d/t lasix, possibly s/e of Zosyn. -- Baseline Cr is 2.5-2.6 -- Will consider diuresis as listed above. -- Will continue to monitor. Hypkalemia -- Repleted History of ischemic CVA (05/20), possible hemorrhagic stroke (06/19) --stable, no acute issues F/E/N 1. Fluids PO as tolerated 2. Replenish electrolytes as needed 3. Low salt diet DVT prophlyaxis: Pt is on Eliquis, OOB with walking Dispo: Pt. continues to require inpatient care. Full code status. Visit type - Emergency Visit Emergency Visit: Yes ED Registration Date: 03/26/16 Care time: The patient presented to the Emergency Department on the above date and was hospitalized for further evaluation of their emergent condition. - New Patient This patient is new to me today: Yes Date on this admission: 03/28/16 - Critical Care Critical Care patient: No - Discharge Referral Referred to [facility] Med P.C.: No
--- NOTE | 2016-03-28 14:35 | PN ---
Progress Note (short form) - Note Progress Note: Renal Follow up for GILLES/CKD Pt seen and examined at the bedside No acute complaints today reports that breathing is much improved no cough, chest pain, fever, chlls, Abd pain Vital Signs Temperature 98 F 03/28/16 07:50 Pulse Rate 112 H 03/28/16 10:59 Respiratory Rate 22 03/28/16 08:00 Blood Pressure 113/85 03/28/16 07:50 O2 Sat by Pulse Oximetry (%) 94 L 03/28/16 10:59 Gen: NAD, awake and alert CVS: RRR NO M/R Lungs: CTA Abd: soft NT/ND, Obese Ezt: Trace to 1+ edema in LE CBC, BMP 03/28/16 05:35 03/28/16 05:35 Laboratory Tests 03/28/16 05:35 Calcium 8.0 L Phosphorus 4.6 Magnesium 2.1 Albumin 2.5 L Current Medications Amlodipine Besylate (Norvasc -) 5 mg PO DAILY [facility] Last Admin: 03/28/16 09:15 Dose: 5 mg Apixaban (Eliquis -) 5 mg PO BID [facility] Last Admin: 03/28/16 09:14 Dose: 5 mg Atorvastatin Calcium (Lipitor -) 10 mg PO HS [facility] Last Admin: 03/27/16 21:00 Dose: 10 mg Hydralazine HCl (Apresoline -) 100 mg PO TID [facility] Last Admin: 03/28/16 14:29 Dose: 100 mg Piperacillin Sod/Tazobactam Sod (Zosyn 3.375gm Ivpb (Pre-Docked)) 50 mls @ 100 mls/hr IVPB Q8H-IV [facility] PRN Reason: Protocol Last Admin: 03/28/16 09:14 Dose: 100 mls/hr Clindamycin Phosphate (Cleocin 300 Mg Premix Ivpb) 50 mls @ 100 mls/hr IVPB Q8H -IV [facility] Last Admin: 03/28/16 09:15 Dose: 100 mls/hr Insulin Aspart (Novolog Vial Sliding Scale -) 1 vial SQ ACHS [facility] PRN Reason: Protocol Last Admin: 03/28/16 11:34 Dose: Not Given Insulin Detemir (Levemir Vial) 28 units SQ HS [facility] Last Admin: 03/27/16 21:12 Dose: 28 units Isosorbide Mononitrate (Imdur -) 60 mg PO BID [facility] Last Admin: 03/28/16 09:14 Dose: 60 mg Metoprolol Succinate (Toprol Xl -) 150 mg PO BID [facility] Last Admin: 03/28/16 09:14 Dose: 150 mg Nystatin (Mycostatin Cream -) 1 applic TP BID [facility] Last Admin: 03/28/16 09:15 Dose: 1 applic Tamsulosin HCl (Flomax -) 0.4 mg PO DAILY@0830 [facility] Last Admin: 03/28/16 11:34 Dose: 0.4 mg Torsemide (Demadex -) 80 mg PO DAILY [facility] A/P 55 year old Gentleman with PMhx of CKD Stage 4, CHF, Afib, CAD, Diverticulitis, HTN, HlD presentd with CP/SOB with BUN/Cr of 55 year old male with a significant past medical history of diabetes, CHF, AFib , arteriosclerotic heart disease, cardiomegaly, diverticulitis, chronic renal insufficiency, chronic kidney disease, hypertension, and hyperlipidemia, presenting to the Emergency Department with chest pain and urinary retention. 32 /2.2. #CKD with Chronic Volume overload and proteinuria Cr up trended to 3 with IV diuresis Volume status is improved now compared to prior admissions Conisder switching Lasix back to Torsemide PO Avoid NSAIDs, Nephrotoxinss #CHF Volume status is improved continue diuretics Trend daily weights Cardiology following #Suspected PNA Continue Emperic Abx Thank you Steven Wyatt DO
--- NOTE | 2016-03-28 15:09 | PN ---
Progress Note, Physician History of Present Illness: patient says doing much better breathing much better feels good - Current Medication List Current Medications: Active Medications Amlodipine Besylate (Norvasc -) 5 mg PO DAILY [facility] Last Admin: 03/28/16 09:15 Dose: 5 mg Apixaban (Eliquis -) 5 mg PO BID [facility] Last Admin: 03/28/16 09:14 Dose: 5 mg Atorvastatin Calcium (Lipitor -) 10 mg PO HS [facility] Last Admin: 03/27/16 21:00 Dose: 10 mg Hydralazine HCl (Apresoline -) 100 mg PO TID [facility] Last Admin: 03/28/16 14:29 Dose: 100 mg Piperacillin Sod/Tazobactam Sod (Zosyn 3.375gm Ivpb (Pre-Docked)) 50 mls @ 100 mls/hr IVPB Q8H-IV [facility] PRN Reason: Protocol Last Admin: 03/28/16 09:14 Dose: 100 mls/hr Clindamycin Phosphate (Cleocin 300 Mg Premix Ivpb) 50 mls @ 100 mls/hr IVPB Q8H -IV [facility] Last Admin: 03/28/16 09:15 Dose: 100 mls/hr Insulin Aspart (Novolog Vial Sliding Scale -) 1 vial SQ ACHS [facility] PRN Reason: Protocol Last Admin: 03/28/16 11:34 Dose: Not Given Insulin Detemir (Levemir Vial) 28 units SQ [facility] Last Admin: 03/27/16 21:12 Dose: 28 units Isosorbide Mononitrate (Imdur -) 60 mg PO BID [facility] Last Admin: 03/28/16 09:14 Dose: 60 mg Metoprolol Succinate (Toprol Xl -) 150 mg PO BID [facility] Last Admin: 03/28/16 09:14 Dose: 150 mg Nystatin (Mycostatin Cream -) 1 applic TP BID [facility] Last Admin: 03/28/16 09:15 Dose: 1 applic Tamsulosin HCl (Flomax -) 0.4 mg PO DAILY@0830 [facility] Last Admin: 03/28/16 11:34 Dose: 0.4 mg Torsemide (Demadex -) 80 mg PO DAILY [facility] - Objective Vital Signs: Vital Signs Temperature 98 F 03/28/16 07:50 Pulse Rate 92 H 03/28/16 14:01 Respiratory Rate 22 03/28/16 14:01 Blood Pressure 113/71 03/28/16 14:01 O2 Sat by Pulse Oximetry (%) 94 L 03/28/16 10:59 Constitutional: Yes: No Distress, Calm Cardiovascular: Yes: Regular Rate and Rhythm Respiratory: Yes: Regular, Poor Air Entry Gastrointestinal: Yes: Normal Bowel Sounds, Soft Musculoskeletal: Yes: WNL Extremities: Yes: WNL Edema: LLE: 1+, RLE: 1+ Integumentary: Yes: WNL Neurological: Yes: Alert, Oriented Psychiatric: Yes: Alert, Oriented Labs: CBC, BMP 03/28/16 05:35 03/28/16 05:35 INR, PTT INR 1.21 (0.82-1.09) H 03/26/16 01:42 Assessment/Plan 1. CHF Exacerbation 2. Chest Pain 3. Afib With RVR 4. CKD 5. HTN 6. HLD 7. CVA 8 PNA 9 leukocytosis plan continue abx wbc still on higher side incentive spior chest physio
[2016-03-28 16:57] LABS: EOSINOPHIL 3.4 % (0-4.5); MCH 28.7 pg (25.7-33.7); MCHC 32.8 g/dl (32.0-35.9); MEAN CELL VOLUME 87.5 fl (80-96); MEAN PLT VOLUME 8.1 fl (7.5-11.1); NEUTROPHILS 74.4 % (42.8-82.8); PLATELET COUNT 256 K/MM3 (134-434); RDW 18.9 % (11.9-15.9); WHITE BLOOD COUNT 12.5 K/mm3 (4.0-10.0)
[2016-03-28 17:33] LABS: URINE CREATININE 34.2 mg/dL
[2016-03-28] MEDS: INSULIN DETEMIR 100 UNITS/ML MDV SQ SCH (21:36)
[2016-03-28] MEDS: ATORVASTATIN CA 10 MG TABLET (FP) PO SCH (21:36)
[2016-03-29] MEDS ORDERED: PT OWN MED DRAWER 7, Y5N ONE ×3 (00:50→17:22)
[2016-03-29] MEDS: PIPERACILLIN/TAZOB 3.375 GM 50 ML IVPB SCH (01:02)
[2016-03-29] MEDS: CLINDAMYCIN 300 MG PREMIX IVPB 50 ML IVPB SCH ×3 (01:02→18:09)
[2016-03-29] MEDS: hydrALAZINE HCL 50 MG TABLET (FP) PO SCH ×3 (06:18→23:10)
[2016-03-29] MEDS: INSULIN SLIDING SCALE (NOVOLOG) 1 VIAL SQ SCH ×3 (06:18→23:10)
[2016-03-29 07:40] LABS: CALCIUM 8.1 mg/dL (8.5-10.1); CREATININE 3.2 mg/dL (0.7-1.3)
[2016-03-29 08:23] LABS: BASOPHIL 0.7 % (0-2.0); EOSINOPHIL 3.5 % (0-4.5); MCH 28.4 pg (25.7-33.7); MCHC 32.1 g/dl (32.0-35.9); MEAN CELL VOLUME 88.3 fl (80-96); MEAN PLT VOLUME 8.2 fl (7.5-11.1); NEUTROPHILS 75.8 % (42.8-82.8); PLATELET COUNT 217 K/MM3 (134-434); RDW 18.3 % (11.9-15.9); WHITE BLOOD COUNT 12.5 K/mm3 (4.0-10.0)
[2016-03-29] MEDS ORDERED: TORSEMIDE 20 MG TABLET (FP) PO SCH (10:00)
--- NOTE | 2016-03-29 10:35 | PN ---
Progress Note (short form) - Note Progress Note: s: no cp palps dizzy; sob resolved, feels well walking in halls o: Vital Signs Period Temp Pulse Resp BP Sys/Perez Pulse Ox Last 24 Hr 98.0 F-98.4 F 83-112 18-22 109-136/56-83 93-95 Constitutional: Yes: No Distress, Obese Eyes: No: Sclera Icterus Respiratory: cta bl nl eff No: Accessory Muscle Use Gastrointestinal: Yes: Normal Bowel Sounds. obese No: Distention, Hepatomegaly, Palpable Mass, tenderness Cardiovascular: Yes: Irregular Rate and Rhythm JVD: tds Heart Sounds: Yes: nl, S1, S2. No: Gallop Murmur: No: Systolic Murmur, Diastolic Murmur Edema: trace LE bl, erythema of shins bl Integumentary: No: Jaundice diaphoresis Neurological: Yes: Alert, Oriented (x3) Psychiatric: No: Agitated Current Medications Generic Name Dose Route Start Last Admin Trade Name Freq PRN Reason Stop Dose Admin Amlodipine Besylate 5 mg 03/26/16 10:00 03/28/16 09:15 Norvasc - PO 5 mg DAILY ANURADHA Administration Apixaban 5 mg 03/26/16 10:00 03/28/16 21:36 Eliquis - PO 5 mg BID ANURADHA Administration Atorvastatin Calcium 10 mg 03/26/16 22:00 03/28/16 21:36 Lipitor - PO 10 mg HS ANURADHA Administration Hydralazine HCl 100 mg 03/26/16 14:00 03/29/16 06:18 Apresoline - PO 100 mg TID ANURADHA Administration Piperacillin Sod/Tazobactam Sod 50 mls @ 100 mls/hr 03/26/16 18:00 03/29/16 01: 02 Zosyn 3.375gm Ivpb (Pre-Docked) IVPB 100 mls/hr Q8H-IV ANURADHA Administration Protocol Clindamycin Phosphate 50 mls @ 100 mls/hr 03/26/16 18:00 03/29/16 01:02 Cleocin 300 Mg Premix Ivpb IVPB 100 mls/hr Q8H-IV ANURADHA Administration Insulin Aspart 1 vial 03/27/16 16:30 03/29/16 06:18 Novolog Vial Sliding Scale - SQ Not Given ACHS ANURADHA Protocol Insulin Detemir 28 units 03/27/16 22:00 03/28/16 21:36 Levemir Vial SQ 28 units HS ANURADHA Administration Isosorbide Mononitrate 60 mg 03/26/16 10:00 03/28/16 21:35 Imdur - PO 60 mg BID ANURADHA Administration Metoprolol Succinate 150 mg 03/26/16 10:00 03/28/16 21:35 Toprol Xl - PO 150 mg BID ANURADHA Administration Nystatin 1 applic 03/26/16 22:00 03/28/16 21:36 Mycostatin Cream - TP 1 applic BID ANURADHA Administration Tamsulosin HCl 0.4 mg 03/28/16 11:15 03/28/16 11:34 Flomax - PO 0.4 mg DAILY@0830 ANURADHA Administration Torsemide 80 mg 03/29/16 10:00 Demadex - PO DAILY ANURADHA CBC, BMP 03/29/16 06:30 03/29/16 05:35 EKG 03/25/16: afib, vr 111, nonspecific tw changes, no st changes CXR: congestion, infiltrates Echo 10/2015: Moderately decreased LV function (global). Nl RV size/fn. 1+ MR. mild-mod TR. mild ao dilation. Trivial effusion. cath 06/2013: 60-70 rpl1, 80-90 d1, subtotal om1 MIBI 08/2014 (pers): no STs; no ischemia seen; predominantly fixed medium-sized inferior/basal inferolat/apico-inferior defect c/w diaphragm attenuation; EF 46% tele: afib, rate controlled a/p: 55 yo with h/o afib with prior ?embolic CVA 05/[address] [facility]) right visual field cut, syncope 09/19 with ICH at that time vs other entity on MRI and recurrent syncope 12/2015 (unclear etiology), Non-ischemic cardiomyopathy dx 2013 at [place], HTN, HPL, Rt carotid stenosis, IDDM, RLE cellulitis s/p debridement, MSSA bacteremia 10/2015, DAMIAN not on home cpap, ckd, who presents with sob. sob, acute systolic HF exacerbation (NICM), PNA - admitted last month for chf and diuresed to wt in 340s. Had been feeling well for a whole month on torsemide 60 until day before admit when he noticed decreased UOP and sob. Here in ER his wt is at baseline and does not appear grossly vol overloaded. Given trial of iv lasix 80 bid which has diruesed him well in past. Also getting abx for PNA. - 03/28: CXR still with possible mild congestion, but significantly improved. LFT's normalizing and creatinine now worsened. Will switch to PO regimen. will try slightly higher dose of torsemide (80 mg daily.) - 03/29: cont po torsemide - cont home LV dysfxn regimen: bb, imdur/hydralazine (not on kaylan/arb 2/2 ckd) - mgm't of pna per pmd/ID. 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 Contrast enhancing lesion seen 06/19 and the prior heme on MRI were in same location and was thought to be most likely 2/2 post CVA hemorrhagic conversion (i.e. without hi risk for recurrent ICH). Less likely low-grade glioma, which would have very low risk of bleeding if AC resumed--hence the recs at that time were for usual AC considerations for his afib, no special precautions (pt failed repeatedly to f/u with neuro as outpatient, and then worsening renal fxn made him hi risk for morena when here last time). -warfarin changed to eliquis on past admits due to pt's repeated refusal to f/u with cardiology or have reliable INRs and make rec'd coumadin dose change, with worrisome CHADS-VASC 6 = estimated risk 9-10%/year, and hence concern he will stroke again on warfarin. - now on eliquis - Con't home regimen toprol 150 mg bid, rate controlled, can dc tele cad: -managed medically, no angina/ACS/ischemia since -Here with borderline elevation in troponin, flat trend, consistent with prior baseline values. no signs acs, instead likely due to CHF and CKD. -continue home statin, bb, imdur, hydralazine -con't to defer ASA as pt with stable CAD in past and also on AC R carotid stenosis: -ADRIENNE with PSV in high 200s cm/sec here, suspicious for >70% stenosis per radiology report -vascular surgery c/s on prior admit felt stenosis is at MOST 70% (deferred further imaging with contrast due to low GFR). Recommended deferring CEA unless imaging suggested >80% stenosis, or if he developed symptoms/acute cerebrovascular event. Ao dilation - Con't bb. Routine outpatient surveillance CKD: - baseline cr 2.5-2.6 - slight worsening with iv lasix here, now off iv diuretic and on po torsemide
[2016-03-29] MEDS: ISOSORBIDE MONONITRATE 60 MG TAB.SR.24H (FP) PO SCH ×2 (10:52→23:11)
[2016-03-29] MEDS: TAMSULOSIN HCL 0.4 MG CAP.ER.24H (FP) PO SCH (10:53)
[2016-03-29] MEDS: APIXABAN 5 MG TABLET PO SCH ×2 (10:53→23:11)
[2016-03-29] MEDS: amLODIPine BESYLATE 5 MG TABLET (FP) PO SCH (10:54)
[2016-03-29] MEDS: METOPROLOL SUCCINATE 100 MG TAB.SR.24H (FP) PO SCH ×2 (10:54→23:10)
[2016-03-29] MEDS ORDERED: INSULIN (NOVOLOG) ASPART 100 UNITS/ML 10ML VIAL ONE (12:23)
--- NOTE | 2016-03-29 13:28 | PN ---
Physical Exam: SUBJECTIVE: Patient seen and examined at bedside. Pt. states he is feeling well and has no complaints. OBJECTIVE: Vital Signs Period Temp Pulse Resp BP Sys/Perez Pulse Ox Last 24 Hr 98.0 F-98.4 F 83-94 18-22 109-136/56-83 93-95 GENERAL: The patient is awake, alert, and fully oriented, in no acute distress. HEAD: Normal with no signs of trauma. EYES: PERRL, extraocular movements intact, sclera anicteric, conjunctiva clear. No ptosis. ENT: Ears normal, nares patent, oropharynx clear without exudates, moist mucous membranes. NECK: Trachea midline, full range of motion, supple. LUNGS: Breath sounds equal, clear to auscultation bilaterally, no wheezes, no crackles, no accessory muscle use. HEART: Irregular rate and rhythm. S1, S2 without murmur, rub or gallop. ABDOMEN: Soft, nontender, nondistended, normoactive bowel sounds, no guarding, no rebound, no hepatosplenomegaly, no masses. EXTREMITIES: 2+ pulses, warm, well-perfused, no edema. NEUROLOGICAL: Cranial nerves II through XII grossly intact. Normal speech, gait not observed. PSYCH: Normal mood, normal affect. SKIN: Warm, dry, normal turgor, no rashes or lesions noted Laboratory Results - last 24 hr 03/28/16 03/28/16 03/28/16 05:35 15:30 16:30 WBC 12.5 H RBC 4.42 Hgb 12.7 Hct 38.7 MCV 87.5 MCHC 32.8 RDW 18.9 H Plt Count 256 MPV 8.1 Neutrophils % 74.4 Lymphocytes % 11.2 Monocytes % 10.0 Eosinophils % 3.4 Basophils % 1.0 Sodium Potassium Chloride Carbon Dioxide Anion Gap BUN Creatinine POC Glucometer Random Glucose Calcium Free T3 2.0 Total T3 81.00 U Random Total Protein 159 H Ur Random Urea Nitrogn 252 Urine Creatinine 34.2 03/28/16 03/28/16 03/29/16 17:09 21:30 05:35 WBC RBC Hgb Hct MCV MCHC RDW Plt Count MPV Neutrophils % Lymphocytes % Monocytes % Eosinophils % Basophils % Sodium 139 Potassium 3.8 Chloride 102 Carbon Dioxide 26 Anion Gap 11 BUN 45 H Creatinine 3.2 H POC Glucometer 152 128 Random Glucose 117 H Calcium 8.1 L Free T3 Total T3 U Random Total Protein Ur Random Urea Nitrogn Urine Creatinine 03/29/16 03/29/16 03/29/16 05:58 06:30 12:19 WBC 12.5 H RBC 4.42 Hgb 12.5 Hct 39.0 MCV 88.3 MCHC 32.1 RDW 18.3 H Plt Count 217 MPV 8.2 Neutrophils % 75.8 Lymphocytes % 10.7 Monocytes % 9.3 Eosinophils % 3.5 Basophils % 0.7 Sodium Potassium Chloride Carbon Dioxide Anion Gap BUN Creatinine POC Glucometer 113 167 Random Glucose Calcium Free T3 Total T3 U Random Total Protein Ur Random Urea Nitrogn Urine Creatinine Active Medications Generic Name Dose Route Start Last Admin Trade Name Freq PRN Reason Stop Dose Admin Amlodipine Besylate 5 mg 03/26/16 10:00 03/29/16 10:54 Norvasc - PO 5 mg DAILY ANURADHA Administration Amoxicillin/Clavulanate Potassium 1 tab 03/29/16 17:30 Augmentin - 875mg Tablet PO BIDWM ANURADHA Apixaban 5 mg 03/26/16 10:00 03/29/16 10:53 Eliquis - PO 5 mg BID ANURADHA Administration Atorvastatin Calcium 10 mg 03/26/16 22:00 03/28/16 21:36 Lipitor - PO 10 mg HS ANURADHA Administration Hydralazine HCl 100 mg 03/26/16 14:00 03/29/16 06:18 Apresoline - PO 100 mg TID ANURADHA Administration Clindamycin Phosphate 50 mls @ 100 mls/hr 03/26/16 18:00 03/29/16 11:11 Cleocin 300 Mg Premix Ivpb IVPB 100 mls/hr Q8H-IV ANURADHA Administration Insulin Aspart 1 vial 03/27/16 16:30 03/29/16 12:24 Novolog Vial Sliding Scale - SQ 2 units ACHS ANURADHA Administration Protocol Insulin Detemir 28 units 03/27/16 22:00 03/28/16 21:36 Levemir Vial SQ 28 units HS ANURADHA Administration Isosorbide Mononitrate 60 mg 03/26/16 10:00 03/29/16 10:52 Imdur - PO 60 mg BID ANURADHA Administration Metoprolol Succinate 150 mg 03/26/16 10:00 03/29/16 10:54 Toprol Xl - PO 150 mg BID ANURADHA Administration Nystatin 1 applic 03/26/16 22:00 03/28/16 21:36 Mycostatin Cream - TP 1 applic BID ANURADHA Administration Tamsulosin HCl 0.4 mg 03/28/16 11:15 03/29/16 10:53 Flomax - PO 0.4 mg DAILY@0830 ANURADHA Administration Torsemide 80 mg 03/29/16 10:00 03/29/16 10:51 Demadex - PO 80 mg DAILY ANURADHA Administration ASSESSMENT/PLAN: Imaging: CXR 03/26/16: Worsening progressive bilateral pulmonary and pleural changes. Large heart. Unfolded aorta CXR 03/28/16: No evidence of active pulmonary disease Pt. is a 55 y/o male who has a PMH of IDDM, CHF, Afib, CAD, CVA (Ischemic 05/20, hemorrhagic (?) 06/19), CKD, renal insufficiency, HTN, hyperlipidemia, cirrhosis who was admitted on 03/26/16 for PNA and CHF exacerbation. Acute on chronic systolic heart failure (NICM) -- Clinically improved, less SOB, resolving lower extremity edema; Bili today is 1.0 down from yesterday (1.5) -- Bump past baseline in Cr, 3.0 --> 3.2 today. Bun 45 up from 40. Pt. has resumed PO torsimide. -- Will d/c zosyn at this time d/t worsening kidney function. Will switch pt. to po Augmentin. -- Will continue to monitor kidney function. -- Continue with amlodipine, metoprolol, hydralazine. -- Sodium restricted diet -- Daily weights -- Strict I&O's Bacterial hospital acquired pneumonia -- Pt. has been admitted to the hospital within the past month. -- CXR on 03/26/16 shows RLL pneumonia. -- CXR today shows no evidence of active pulmonary disease. -- ID following. D/t kidney function, pt switched to all PO antibiotics at this time. Pts leukocytosis appears to be chronic. -- Will treat with broad spectrum antibiotics to cover hospital acquired pneumonia. -- Continue with IV Clindamycin (day 3). D/C IV Zosyn (day 2) d/t worsening kidney function. Will start PO Augmentin. Atrial Fibrillation on Anticoagulation -- Rate in 100s, continue with Metoprolol for rate control -- CHADS-VASc2 score 6. High risk for future event. -- Given history of stroke while off anticoagulation, will continue anticoagulation and monitor. Continue Eliquis for anticoagulation. CAD --flat trending troponins likely secondary to CHF --continue Torpol XL, amlodipine, Lipitor --per cardiology, no indication for ASA at this time since CAD stable and on a/c HTN --continue Toprol, amlodipine, hydralazine. Hyperlipidemia -- Continue atorvastatin IDDM -- Random glucose this morning 135 -- Home dose Levemir 28units -- Novolog sliding scale coverage -- Finger sticks at night and before meals. CKD -- BUN is 45 up from 40, Cr is 3.2 up from 3.0 yesterday. Cr has been trending upward slowly since admission. Possibly d/t lasix, possibly s/e of Zosyn. -- Baseline Cr is 2.5-2.6 -- Will consider diuresis as listed above. Hypkalemia -- Repleted History of ischemic CVA (05/20), possible hemorrhagic stroke (06/19) --stable, no acute issues F/E/N 1. Fluids PO as tolerated 2. Replenish electrolytes as needed 3. Low salt diet DVT prophlyaxis: Pt is on Eliquis, OOB and walking Dispo: Pt. continues to require inpatient care. Full code status. Visit type - Emergency Visit Emergency Visit: Yes ED Registration Date: 03/26/16 Care time: The patient presented to the Emergency Department on the above date and was hospitalized for further evaluation of their emergent condition. - New Patient This patient is new to me today: No - Critical Care Critical Care patient: No - Discharge Referral Referred to [facility] Med P.C.: No
[2016-03-29] MEDS: NYSTATIN 100,000 UNIT/GM TOPICAL CREAM 15 GM TUBE TP SCH ×2 (15:37→23:11)
--- NOTE | 2016-03-29 16:17 | PN ---
Progress Note, Physician History of Present Illness: doing well no issues breathing well - Current Medication List Current Medications: Active Medications Amlodipine Besylate (Norvasc -) 5 mg PO DAILY [facility] Last Admin: 03/29/16 10:54 Dose: 5 mg Amoxicillin/Clavulanate Potassium (Augmentin - 500mg Tablet) 1 tab PO BIDWM [facility] Apixaban (Eliquis -) 5 mg PO BID [facility] Last Admin: 03/29/16 10:53 Dose: 5 mg Atorvastatin Calcium (Lipitor -) 10 mg PO HS [facility] Last Admin: 03/28/16 21:36 Dose: 10 mg Hydralazine HCl (Apresoline -) 100 mg PO TID [facility] Last Admin: 03/29/16 15:36 Dose: 100 mg Clindamycin Phosphate (Cleocin 300 Mg Premix Ivpb) 50 mls @ 100 mls/hr IVPB Q8H -IV [facility] Last Admin: 03/29/16 11:11 Dose: 100 mls/hr Insulin Aspart (Novolog Vial Sliding Scale -) 1 vial SQ [facility] PRN Reason: Protocol Last Admin: 03/29/16 12:24 Dose: 2 units Insulin Detemir (Levemir Vial) 28 units SQ [facility] Last Admin: 03/28/16 21:36 Dose: 28 units Isosorbide Mononitrate (Imdur -) 60 mg PO BID [facility] Last Admin: 03/29/16 10:52 Dose: 60 mg Metoprolol Succinate (Toprol Xl -) 150 mg PO BID [facility] Last Admin: 03/29/16 10:54 Dose: 150 mg Nystatin (Mycostatin Cream -) 1 applic TP BID [facility] Last Admin: 03/29/16 15:37 Dose: 1 applic Tamsulosin HCl (Flomax -) 0.4 mg PO DAILY@0830 [facility] Last Admin: 03/29/16 10:53 Dose: 0.4 mg Torsemide (Demadex -) 80 mg PO DAILY [facility] Last Admin: 03/29/16 10:51 Dose: 80 mg - Objective Vital Signs: Vital Signs Temperature 97.9 F 03/29/16 14:28 Pulse Rate 91 H 03/29/16 14:28 Respiratory Rate 20 03/29/16 14:28 Blood Pressure 98/60 03/29/16 14:28 O2 Sat by Pulse Oximetry (%) 95 03/29/16 08:38 Constitutional: Yes: No Distress, Calm Cardiovascular: Yes: Regular Rate and Rhythm Respiratory: Yes: Regular, Poor Air Entry Gastrointestinal: Yes: Normal Bowel Sounds, Soft Musculoskeletal: Yes: WNL Extremities: Yes: WNL Edema: LLE: Trace, RLE: Trace Integumentary: Yes: WNL Neurological: Yes: Alert, Oriented Psychiatric: Yes: Alert, Oriented Labs: CBC, BMP 03/29/16 06:30 03/29/16 05:35 INR, PTT INR 1.21 (0.82-1.09) H 03/26/16 01:42 Assessment/Plan 1. CHF Exacerbation 2. Chest Pain 3. Afib With RVR 4. CKD 5. HTN 6. HLD 7. CVA 8 PNA 9 leukocytosis plan stop all abx watch the patient
--- NOTE | 2016-03-29 17:07 | PN ---
Progress Note (short form) - Note Progress Note: Renal Follow up for GILLES/CKD Pt seen and examined in the solarium no acute complaints no chest pain or sob LE edema improved Good urine output Vital Signs Temperature 97.9 F 03/29/16 14:28 Pulse Rate 91 H 03/29/16 14:28 Respiratory Rate 20 03/29/16 14:28 Blood Pressure 98/60 03/29/16 14:28 O2 Sat by Pulse Oximetry (%) 95 03/29/16 08:38 Intake & Output 03/26/16 03/27/16 03/28/16 03/29/16 23:59 23:59 23:59 23:59 Intake Total 949 302 3353 380 Output Total 1000 Balance 310 -30 1450 380 Weight 340 lb 340 lb 339 lb 9.6 oz 341 lb 9.6 oz Gen: NAD, awake and alert CVS: RRR NO M/R Lungs: CTA Abd: soft NT/ND, Obese Ezt: Trace to 1+ edema in LE CBC, BMP 03/29/16 06:30 03/29/16 05:35 Current Medications Amlodipine Besylate (Norvasc -) 5 mg PO DAILY [facility] Last Admin: 03/29/16 10:54 Dose: 5 mg Amoxicillin/Clavulanate Potassium (Augmentin - 500mg Tablet) 1 tab PO BIDWM ANURADHA Apixaban (Eliquis -) 5 mg PO BID [facility] Last Admin: 03/29/16 10:53 Dose: 5 mg Atorvastatin Calcium (Lipitor -) 10 mg PO HS [facility] Last Admin: 03/28/16 21:36 Dose: 10 mg Hydralazine HCl (Apresoline -) 100 mg PO TID [facility] Last Admin: 03/29/16 15:36 Dose: 100 mg Clindamycin Phosphate (Cleocin 300 Mg Premix Ivpb) 50 mls @ 100 mls/hr IVPB Q8H -IV [facility] Last Admin: 03/29/16 11:11 Dose: 100 mls/hr Insulin Aspart (Novolog Vial Sliding Scale -) 1 vial SQ ACHS [facility] PRN Reason: Protocol Last Admin: 03/29/16 12:24 Dose: 2 units Insulin Detemir (Levemir Vial) 28 units SQ HS [facility] Last Admin: 03/28/16 21:36 Dose: 28 units Isosorbide Mononitrate (Imdur -) 60 mg PO BID [facility] Last Admin: 03/29/16 10:52 Dose: 60 mg Metoprolol Succinate (Toprol Xl -) 150 mg PO BID [facility] Last Admin: 03/29/16 10:54 Dose: 150 mg Nystatin (Mycostatin Cream -) 1 applic TP BID [facility] Last Admin: 03/29/16 15:37 Dose: 1 applic Tamsulosin HCl (Flomax -) 0.4 mg PO DAILY@0830 [facility] Last Admin: 03/29/16 10:53 Dose: 0.4 mg Torsemide (Demadex -) 80 mg PO DAILY [facility] Last Admin: 03/29/16 10:51 Dose: 80 mg A/P 55 year old Gentleman with PMhx of CKD Stage 4, CHF, Afib, CAD, Diverticulitis, HTN, HlD presentd with CP/SOB with BUN/Cr of 55 year old male with a significant past medical history of diabetes, CHF, AFib , arteriosclerotic heart disease, cardiomegaly, diverticulitis, chronic renal insufficiency, chronic kidney disease, hypertension, and hyperlipidemia, presenting to the Emergency Department with chest pain and urinary retention. 32 /2.2. #CKD with Chronic Volume overload and proteinuria Cr contining to uptrend pt now off IV diuretics, on oral torsemide if BUN/Cr worsen by tomorrow dayna would consider hold diuretics for one day and then resuing at home dose or lower as volume status is significantly improved no indication for dialysis Trend BUN/Cr #CHF Volume status is improved continue diuretics as per cardiology Trend daily weights Cardiology following #Suspected PNA Continue Emperic Abx Thank you Steven Wyatt DO
[2016-03-29] MEDS ORDERED: AMOX TR/POT CLAV 875MG/125MG TABLETS (FP) PO SCH ×2 (17:30→22:00)
[2016-03-29] MEDS: AMOX TR/POT CLAV 500MG/125MG TABLETS (FP) PO SCH (18:09)
[2016-03-29] MEDS: ATORVASTATIN CA 10 MG TABLET (FP) PO SCH (23:11)
[2016-03-29] MEDS: INSULIN DETEMIR 100 UNITS/ML MDV SQ SCH (23:11)
[2016-03-30] MEDS ORDERED: PT OWN MED DRAWER 7, Y5N ONE ×3 (02:16→16:40)
[2016-03-30] MEDS: CLINDAMYCIN 300 MG PREMIX IVPB 50 ML IVPB SCH ×2 (02:23→09:45)
[2016-03-30] MEDS: INSULIN SLIDING SCALE (NOVOLOG) 1 VIAL SQ SCH ×4 (06:18→21:36)
[2016-03-30] MEDS: hydrALAZINE HCL 50 MG TABLET (FP) PO SCH ×3 (06:20→21:31)
[2016-03-30 08:10] LABS: CREATININE 3.4 mg/dL (0.7-1.3); MAGNESIUM 2.3 mg/dL (1.8-2.4); PHOSPHOROUS 5.7 mg/dL (2.5-4.9)
[2016-03-30] MEDS: AMOX TR/POT CLAV 500MG/125MG TABLETS (FP) PO SCH (09:40)
[2016-03-30] MEDS: TAMSULOSIN HCL 0.4 MG CAP.ER.24H (FP) PO SCH (09:40)
[2016-03-30] MEDS: ISOSORBIDE MONONITRATE 60 MG TAB.SR.24H (FP) PO SCH ×2 (09:40→21:31)
[2016-03-30] MEDS: METOPROLOL SUCCINATE 100 MG TAB.SR.24H (FP) PO SCH ×2 (09:40→21:32)
[2016-03-30] MEDS: APIXABAN 5 MG TABLET PO SCH ×2 (09:40→21:32)
[2016-03-30] MEDS: amLODIPine BESYLATE 5 MG TABLET (FP) PO SCH (09:40)
[2016-03-30] MEDS: NYSTATIN 100,000 UNIT/GM TOPICAL CREAM 15 GM TUBE TP SCH ×2 (09:41→21:37)
--- NOTE | 2016-03-30 10:18 | PN ---
Progress Note (short form) - Note Progress Note: s: no cp palps dizzy; sob resolved, feels well walking in halls o: Vital Signs Period Temp Pulse Resp BP Sys/Perez Pulse Ox Last 24 Hr 97.7 F-98.8 F 86-93 18-20 98-132/60-85 96-98 Constitutional: Yes: No Distress, Obese Eyes: No: Sclera Icterus Respiratory: cta bl nl eff No: Accessory Muscle Use Gastrointestinal: Yes: Normal Bowel Sounds. obese No: Distention, Hepatomegaly, Palpable Mass, tenderness Cardiovascular: Yes: Irregular Rate and Rhythm JVD: tds Heart Sounds: Yes: nl, S1, S2. No: Gallop Murmur: No: Systolic Murmur, Diastolic Murmur Edema: trace LE bl, erythema of shins bl Integumentary: No: Jaundice diaphoresis Neurological: Yes: Alert, Oriented (x3) Psychiatric: No: Agitated Current Medications Generic Name Dose Route Start Last Admin Trade Name Freq PRN Reason Stop Dose Admin Amlodipine Besylate 5 mg 03/26/16 10:00 03/30/16 09:40 Norvasc - PO 5 mg DAILY ANURADHA Administration Amoxicillin/Clavulanate Potassium 1 tab 03/29/16 17:30 03/30/16 09:40 Augmentin - 500mg Tablet PO 1 tab BIDWM ANURADHA Administration Apixaban 5 mg 03/26/16 10:00 03/30/16 09:40 Eliquis - PO 5 mg BID ANURADHA Administration Atorvastatin Calcium 10 mg 03/26/16 22:00 03/29/16 23:11 Lipitor - PO 10 mg HS ANURADHA Administration Hydralazine HCl 100 mg 03/26/16 14:00 03/30/16 06:20 Apresoline - PO 100 mg TID ANURADHA Administration Clindamycin Phosphate 50 mls @ 100 mls/hr 03/26/16 18:00 03/30/16 09:45 Cleocin 300 Mg Premix Ivpb IVPB 100 mls/hr Q8H-IV ANURADHA Administration Insulin Aspart 1 vial 03/27/16 16:30 03/30/16 06:18 Novolog Vial Sliding Scale - SQ Not Given ACHS ANURADHA Protocol Insulin Detemir 28 units 03/27/16 22:00 03/29/16 23:11 Levemir Vial SQ 28 units HS ANURADHA Administration Isosorbide Mononitrate 60 mg 03/26/16 10:00 03/30/16 09:40 Imdur - PO 60 mg BID ANURADHA Administration Metoprolol Succinate 150 mg 03/26/16 10:00 03/30/16 09:40 Toprol Xl - PO 150 mg BID ANURADHA Administration Nystatin 1 applic 03/26/16 22:00 03/30/16 09:41 Mycostatin Cream - TP 1 applic BID ANURADHA Administration Tamsulosin HCl 0.4 mg 03/28/16 11:15 03/30/16 09:40 Flomax - PO 0.4 mg DAILY@0830 ANURADHA Administration CBC, BMP 03/29/16 06:30 03/30/16 05:35 EKG 03/25/16: afib, vr 111, nonspecific tw changes, no st changes CXR: congestion, infiltrates Echo 10/2015: Moderately decreased LV function (global). Nl RV size/fn. 1+ MR. mild-mod TR. mild ao dilation. Trivial effusion. 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 sob, acute systolic HF exacerbation (NICM), PNA - admitted last month for chf and diuresed to wt in 340s. Had been feeling well for a whole month on torsemide 60 until day before admit when he noticed decreased UOP and sob. Here in ER his wt is at baseline and does not appear grossly vol overloaded. Given trial of iv lasix 80 bid which has diruesed him well in past. Also getting abx for PNA. - 03/28: CXR still with possible mild congestion, but significantly improved. LFT's normalizing and creatinine now worsened. Will switch to PO regimen. will try slightly higher dose of torsemide (80 mg daily.) - 03/29: cont po torsemide - 03/30: cr rising again so will hold torsemide for now (did not get today). Monitor cr, when back to baseline will resume prior torsemide 60 mg po qd - cont home LV dysfxn regimen: bb, imdur/hydralazine (not on kaylan/arb 2/2 ckd) - mgm't of pna per pmd/ID. 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 Contrast enhancing lesion seen 06/19 and the prior heme on MRI were in same location and was thought to be most likely 2/2 post CVA hemorrhagic conversion (i.e. without hi risk for recurrent ICH). Less likely low-grade glioma, which would have very low risk of bleeding if AC resumed--hence the recs at that time were for usual AC considerations for his afib, no special precautions (pt failed repeatedly to f/u with neuro as outpatient, and then worsening renal fxn made him hi risk for morena when here last time). -warfarin changed to eliquis on past admits due to pt's repeated refusal to f/u with cardiology or have reliable INRs and make rec'd coumadin dose change, with worrisome CHADS-VASC 6 = estimated risk 9-10%/year, and hence concern he will stroke again on warfarin. - now on eliquis - Con't home regimen toprol 150 mg bid, rate controlled, can dc tele cad: -managed medically, no angina/ACS/ischemia since -Here with borderline elevation in troponin, flat trend, consistent with prior baseline values. no signs acs, instead likely due to CHF and CKD. -continue home statin, bb, imdur, hydralazine -con't to defer ASA as pt with stable CAD in past and also on AC R carotid stenosis: -ADRIENNE with PSV in high 200s cm/sec here, suspicious for >70% stenosis per radiology report -vascular surgery c/s on prior admit felt stenosis is at MOST 70% (deferred further imaging with contrast due to low GFR). Recommended deferring CEA unless imaging suggested >80% stenosis, or if he developed symptoms/acute cerebrovascular event. Ao dilation - Con't bb. Routine outpatient surveillance CKD: - baseline cr 2.5-2.6 - plan as above - renal following as well
--- NOTE | 2016-03-30 12:32 | PN ---
Physical Exam: SUBJECTIVE: Patient seen and examined bedside. Pt. reports he feels well and has no current complaints. OBJECTIVE: Vital Signs Period Temp Pulse Resp BP Sys/Perez Pulse Ox Last 24 Hr 97.7 F-98.8 F 86-93 18-20 98-132/60-85 96-98 GENERAL: The patient is awake, alert, and fully oriented, in no acute distress. HEAD: Normal with no signs of trauma. EYES: PERRL, extraocular movements intact, sclera anicteric, conjunctiva clear. No ptosis. ENT: Ears normal, nares patent, oropharynx clear without exudates, moist mucous membranes. NECK: Trachea midline, full range of motion, supple. LUNGS: Breath sounds equal, mild bibasilar crackles. No wheezes, no accessory muscle use. HEART: Irregular rate and rhythm, S1, S2 without murmur, rub or gallop. ABDOMEN: Soft, nontender, nondistended, normoactive bowel sounds, no guarding, no rebound, no hepatosplenomegaly, no masses. EXTREMITIES: 2+ pulses, warm, well-perfused, no edema. NEUROLOGICAL: Cranial nerves II through XII grossly intact. Normal speech, gait not observed. PSYCH: Normal mood, normal affect. SKIN: Warm, dry, normal turgor, no rashes or lesions noted Laboratory Results - last 24 hr 03/29/16 03/29/16 03/29/16 12:19 17:16 23:06 Sodium Potassium Chloride Carbon Dioxide Anion Gap BUN Creatinine POC Glucometer 167 145 158 Random Glucose Calcium Phosphorus Magnesium 03/30/16 03/30/16 03/30/16 05:35 06:17 11:10 Sodium 140 Potassium 4.0 Chloride 103 Carbon Dioxide 25 Anion Gap 12 BUN 51 H Creatinine 3.4 H POC Glucometer 106 131 Random Glucose 106 Calcium 8.0 L Phosphorus 5.7 H D Magnesium 2.3 Active Medications Generic Name Dose Route Start Last Admin Trade Name Freq PRN Reason Stop Dose Admin Amlodipine Besylate 5 mg 03/26/16 10:00 03/30/16 09:40 Norvasc - PO 5 mg DAILY ANURADHA Administration Amoxicillin/Clavulanate Potassium 1 tab 03/29/16 17:30 03/30/16 09:40 Augmentin - 500mg Tablet PO 1 tab BIDWM ANURADHA Administration Apixaban 5 mg 03/26/16 10:00 03/30/16 09:40 Eliquis - PO 5 mg BID ANURADHA Administration Atorvastatin Calcium 10 mg 03/26/16 22:00 03/29/16 23:11 Lipitor - PO 10 mg HS ANURADHA Administration Hydralazine HCl 100 mg 03/26/16 14:00 03/30/16 06:20 Apresoline - PO 100 mg TID ANURADHA Administration Clindamycin Phosphate 50 mls @ 100 mls/hr 03/26/16 18:00 03/30/16 09:45 Cleocin 300 Mg Premix Ivpb IVPB 100 mls/hr Q8H-IV ANURADHA Administration Insulin Aspart 1 vial 03/27/16 16:30 03/30/16 06:18 Novolog Vial Sliding Scale - SQ Not Given [facility] Protocol Insulin Detemir 28 units 03/27/16 22:00 03/29/16 23:11 Levemir Vial SQ 28 units HS ANURADHA Administration Isosorbide Mononitrate 60 mg 03/26/16 10:00 03/30/16 09:40 Imdur - PO 60 mg BID ANURADHA Administration Metoprolol Succinate 150 mg 03/26/16 10:00 03/30/16 09:40 Toprol Xl - PO 150 mg BID ANURADHA Administration Nystatin 1 applic 03/26/16 22:00 03/30/16 09:41 Mycostatin Cream - TP 1 applic BID ANURADHA Administration Tamsulosin HCl 0.4 mg 03/28/16 11:15 03/30/16 09:40 Flomax - PO 0.4 mg DAILY@0830 ANURADHA Administration ASSESSMENT/PLAN: Imaging: CXR 03/26/16: Worsening progressive bilateral pulmonary and pleural changes. Large heart. Unfolded aorta CXR 03/28/16: No evidence of active pulmonary disease Pt. is a 55 y/o male who has a PMH of IDDM, CHF, Afib, CAD, CVA (Ischemic 05/20, hemorrhagic (?) 06/19), CKD, renal insufficiency, HTN, hyperlipidemia, cirrhosis who was admitted on 03/26/16 for PNA and CHF exacerbation. Acute on chronic systolic heart failure (NICM) -- Clinically improved, less SOB, resolving lower extremity edema. -- Creatinine continues to rise; Per cardiology, holding PO torsimide. Cr, 3.2--> 3.4 today. Bun 50 up from 45. -- Continue with amlodipine, metoprolol, hydralazine. -- Daily weights up 4 kgs today. Fluid restrict, 1L per 24 hrs. Bacterial hospital acquired pneumonia -- Pt. is afebrile; leukocytosis appears to be chronic -- Course of zosyn completed (3 days). -- IV Clindamycin switched to PO clindamycin. Discussed with Dr. Anderson, will continue clinamycin through 04/01/16. Stopped PO Augmentin 500. Atrial Fibrillation on Anticoagulation -- Rate controlled, continue with Metoprolol. -- CHADS-VASc2 score 6. High risk for future event. -- Continue Eliquis for anticoagulation. CAD --flat trending troponins likely secondary to CHF --continue Torpol XL, amlodipine, Lipitor --per cardiology, no indication for ASA at this time since CAD stable and on a/c HTN --continue Toprol, amlodipine, hydralazine. Hyperlipidemia -- Continue atorvastatin IDDM -- Continue Home dose Levemir 28units -- Novolog sliding scale coverage CKD -- Baseline Cr is 2.5-2.6, 2.8 on admission; steadily trending up. 3.4 today. -- All diuretics on hold -- Renal following Hypokalemia -- Resolved History of ischemic CVA (05/20), possible hemorrhagic stroke (06/19) --stable, no acute issues F/E/N 1. Fluids: 1L daily fluid restriction 2. Replenish electrolytes as needed 3. Low salt diet DVT prophlyaxis: Pt is on Eliquis, OOB with walking Dispo: Pt. continues to require inpatient care. Full code status. Visit type - Emergency Visit Emergency Visit: Yes ED Registration Date: 03/26/16 Care time: The patient presented to the Emergency Department on the above date and was hospitalized for further evaluation of their emergent condition. - New Patient This patient is new to me today: No - Critical Care Critical Care patient: No - Discharge Referral Referred to [facility] Med P.C.: No
--- NOTE | 2016-03-30 13:52 | PN ---
Progress Note (short form) - Note Progress Note: Renal Follow up for GILLES/CKD Pt seen and examined at the bedside no acute complaints no sob, chest pain able to ambulate w/o difficulty Diuretics held this am Vital Signs Temperature 97.9 F 03/30/16 05:00 Pulse Rate 86 03/30/16 05:00 Respiratory Rate 19 03/30/16 05:00 Blood Pressure 132/71 03/30/16 05:00 O2 Sat by Pulse Oximetry (%) 98 03/30/16 06:00 Intake & Output 03/27/16 03/28/16 03/29/16 03/30/16 23:59 23:59 23:59 23:59 Intake Total 970 1450 860 550 Output Total 1000 Balance -30 1450 860 550 Weight 340 lb 339 lb 9.6 oz 341 lb 9.6 oz 349 lb 8 oz Gen: NAD, awake and alert CVS: RRR NO M/R Lungs: CTA Abd: soft NT/ND, Obese Ezt: Trace to 1+ edema in LE CBC, BMP 03/29/16 06:30 03/30/16 05:35 Laboratory Tests 03/30/16 05:35 Calcium 8.0 L Phosphorus 5.7 H D Magnesium 2.3 Current Medications Amlodipine Besylate (Norvasc -) 5 mg PO DAILY [facility] Last Admin: 03/30/16 09:40 Dose: 5 mg Amoxicillin/Clavulanate Potassium (Augmentin - 500mg Tablet) 1 tab PO BIDWM ANURADHA Last Admin: 03/30/16 09:40 Dose: 1 tab Apixaban (Eliquis -) 5 mg PO BID ANURADHA Last Admin: 03/30/16 09:40 Dose: 5 mg Atorvastatin Calcium (Lipitor -) 10 mg PO HS [facility] Last Admin: 03/29/16 23:11 Dose: 10 mg Hydralazine HCl (Apresoline -) 100 mg PO TID [facility] Last Admin: 03/30/16 06:20 Dose: 100 mg Clindamycin Phosphate (Cleocin 300 Mg Premix Ivpb) 50 mls @ 100 mls/hr IVPB Q8H -IV ANURADHA Last Admin: 03/30/16 09:45 Dose: 100 mls/hr Insulin Aspart (Novolog Vial Sliding Scale -) 1 vial SQ ACHS [facility] PRN Reason: Protocol Last Admin: 03/30/16 12:30 Dose: Not Given Insulin Detemir (Levemir Vial) 28 units SQ HS [facility] Last Admin: 03/29/16 23:11 Dose: 28 units Isosorbide Mononitrate (Imdur -) 60 mg PO BID [facility] Last Admin: 03/30/16 09:40 Dose: 60 mg Metoprolol Succinate (Toprol Xl -) 150 mg PO BID [facility] Last Admin: 03/30/16 09:40 Dose: 150 mg Nystatin (Mycostatin Cream -) 1 applic TP BID [facility] Last Admin: 03/30/16 09:41 Dose: 1 applic Tamsulosin HCl (Flomax -) 0.4 mg PO DAILY@0830 [facility] Last Admin: 03/30/16 09:40 Dose: 0.4 mg A/P 55 year old Gentleman with PMhx of CKD Stage 4, CHF, Afib, CAD, Diverticulitis, HTN, HlD presentd with CP/SOB with BUN/Cr of 55 year old male with a significant past medical history of diabetes, CHF, AFib , arteriosclerotic heart disease, cardiomegaly, diverticulitis, chronic renal insufficiency, chronic kidney disease, hypertension, and hyperlipidemia, presenting to the Emergency Department with chest pain and urinary retention. 32 /2.2. #CKD with Chronic Volume overload and proteinuria Renal function worsening with aggressive diuretics hold diuretics today trend renal function pt will need maintenance diureitcs but at lower dose #CHF Volume status is improved holding diuretics at the present time Trend daily weights Cardiology following #Suspected PNA Continue Emperic Abx #Hyperphosphatemia low phos diet Thank you Steven Wyatt DO
--- NOTE | 2016-03-30 15:34 | PN ---
Progress Note, Physician History of Present Illness: doing well no issues breathing well creatinine still high - Current Medication List Current Medications: Active Medications Amlodipine Besylate (Norvasc -) 5 mg PO DAILY [facility] Last Admin: 03/30/16 09:40 Dose: 5 mg Amoxicillin/Clavulanate Potassium (Augmentin - 500mg Tablet) 1 tab PO BIDWM [facility] Last Admin: 03/30/16 09:40 Dose: 1 tab Apixaban (Eliquis -) 5 mg PO BID [facility] Last Admin: 03/30/16 09:40 Dose: 5 mg Atorvastatin Calcium (Lipitor -) 10 mg PO HS [facility] Last Admin: 03/29/16 23:11 Dose: 10 mg Hydralazine HCl (Apresoline -) 100 mg PO TID [facility] Last Admin: 03/30/16 14:42 Dose: 100 mg Clindamycin Phosphate (Cleocin 300 Mg Premix Ivpb) 50 mls @ 100 mls/hr IVPB Q8H -IV [facility] Last Admin: 03/30/16 09:45 Dose: 100 mls/hr Insulin Aspart (Novolog Vial Sliding Scale -) 1 vial SQ [facility] PRN Reason: Protocol Last Admin: 03/30/16 12:30 Dose: Not Given Insulin Detemir (Levemir Vial) 28 units SQ [facility] Last Admin: 03/29/16 23:11 Dose: 28 units Isosorbide Mononitrate (Imdur -) 60 mg PO BID [facility] Last Admin: 03/30/16 09:40 Dose: 60 mg Metoprolol Succinate (Toprol Xl -) 150 mg PO BID [facility] Last Admin: 03/30/16 09:40 Dose: 150 mg Nystatin (Mycostatin Cream -) 1 applic TP BID [facility] Last Admin: 03/30/16 09:41 Dose: 1 applic Tamsulosin HCl (Flomax -) 0.4 mg PO DAILY@0830 [facility] Last Admin: 03/30/16 09:40 Dose: 0.4 mg - Objective Vital Signs: Vital Signs Temperature 97.9 F 03/30/16 05:00 Pulse Rate 86 03/30/16 05:00 Respiratory Rate 19 03/30/16 05:00 Blood Pressure 132/71 03/30/16 05:00 O2 Sat by Pulse Oximetry (%) 98 03/30/16 06:00 Constitutional: Yes: No Distress, Calm Cardiovascular: Yes: Regular Rate and Rhythm Respiratory: Yes: Regular, CTA Bilaterally Gastrointestinal: Yes: Normal Bowel Sounds, Soft Musculoskeletal: Yes: WNL Extremities: Yes: WNL Neurological: Yes: Alert, Oriented Psychiatric: Yes: Alert Labs: CBC, BMP 03/29/16 06:30 03/30/16 05:35 INR, PTT INR 1.21 (0.82-1.09) H 03/26/16 01:42 Assessment/Plan 1. CHF Exacerbation 2. Chest Pain 3. Afib With RVR 4. CKD 5. HTN 6. HLD 7. CVA 8 PNA 9 leukocytosis plan stable off of abx continue to monitor renal renal on board
[2016-03-30] MEDS ORDERED: CLINDAMYCIN HCL 150 MG CAPSULE (FP) PO ONE (20:00)
[2016-03-30] MEDS: ATORVASTATIN CA 10 MG TABLET (FP) PO SCH (21:31)
[2016-03-30] MEDS: INSULIN DETEMIR 100 UNITS/ML MDV SQ SCH (21:32)
[2016-03-31] MEDS ORDERED: PT OWN MED DRAWER 7, Y5N ONE ×2 (05:41→11:36)
[2016-03-31] MEDS: hydrALAZINE HCL 50 MG TABLET (FP) PO SCH ×3 (05:45→21:15)
[2016-03-31] MEDS: INSULIN SLIDING SCALE (NOVOLOG) 1 VIAL SQ SCH ×5 (06:08→21:16)
[2016-03-31 07:52] LABS: CALCIUM 7.8 mg/dL (8.5-10.1); CREATININE 3.5 mg/dL (0.7-1.3); MAGNESIUM 2.4 mg/dL (1.8-2.4); PHOSPHOROUS 5.7 mg/dL (2.5-4.9)
[2016-03-31] MEDS: amLODIPine BESYLATE 5 MG TABLET (FP) PO SCH (09:34)
[2016-03-31] MEDS: METOPROLOL SUCCINATE 100 MG TAB.SR.24H (FP) PO SCH ×2 (09:34→21:15)
[2016-03-31] MEDS: APIXABAN 5 MG TABLET PO SCH ×2 (09:35→21:30)
[2016-03-31] MEDS: TAMSULOSIN HCL 0.4 MG CAP.ER.24H (FP) PO SCH (09:35)
[2016-03-31] MEDS: NYSTATIN 100,000 UNIT/GM TOPICAL CREAM 15 GM TUBE TP SCH ×2 (09:35→21:31)
[2016-03-31] MEDS: ISOSORBIDE MONONITRATE 60 MG TAB.SR.24H (FP) PO SCH ×2 (09:35→21:16)
--- NOTE | 2016-03-31 11:02 | PN ---
Progress Note (short form) - Note Progress Note: s: no cp palps dizzy; sob resolved, feels well walking in halls o: Vital Signs Period Temp Pulse Resp BP Sys/Perez Pulse Ox Last 24 Hr 97.0 F-98 F 81-93 18-20 105-126/45-81 96-98 Constitutional: Yes: No Distress, Obese Eyes: No: Sclera Icterus Respiratory: cta bl nl eff No: Accessory Muscle Use Gastrointestinal: Yes: Normal Bowel Sounds. obese No: Distention, Hepatomegaly, Palpable Mass, tenderness Cardiovascular: Yes: Irregular Rate and Rhythm JVD: tds Heart Sounds: Yes: nl, S1, S2. No: Gallop Murmur: No: Systolic Murmur, Diastolic Murmur Edema: trace LE bl, erythema of shins bl Integumentary: No: Jaundice diaphoresis Neurological: Yes: Alert, Oriented (x3) Psychiatric: No: Agitated Current Medications Generic Name Dose Route Start Last Admin Trade Name Freq PRN Reason Stop Dose Admin Amlodipine Besylate 5 mg 03/26/16 10:00 03/31/16 09:34 Norvasc - PO 5 mg DAILY ANURADHA Administration Apixaban 5 mg 03/26/16 10:00 03/31/16 09:35 Eliquis - PO 5 mg BID ANURADHA Administration Atorvastatin Calcium 10 mg 03/26/16 22:00 03/30/16 21:31 Lipitor - PO 10 mg HS ANURADHA Administration Clindamycin HCl 300 mg 03/31/16 08:00 Cleocin - PO 04/01/16 22:01 TID ANURADHA Hydralazine HCl 100 mg 03/26/16 14:00 03/31/16 05:45 Apresoline - PO 100 mg TID ANURADHA Administration Insulin Aspart 1 vial 03/27/16 16:30 03/31/16 06:08 Novolog Vial Sliding Scale - SQ Not Given [facility] Protocol Insulin Detemir 28 units 03/27/16 22:00 03/30/16 21:32 Levemir Vial SQ 28 units HS ANURADHA Administration Isosorbide Mononitrate 60 mg 03/26/16 10:00 03/31/16 09:35 Imdur - PO 60 mg BID ANURADHA Administration Metoprolol Succinate 150 mg 03/26/16 10:00 03/31/16 09:34 Toprol Xl - PO 150 mg BID ANURADHA Administration Nystatin 1 applic 03/26/16 22:00 03/31/16 09:35 Mycostatin Cream - TP 1 applic BID ANURADHA Administration Tamsulosin HCl 0.4 mg 03/28/16 11:15 03/31/16 09:35 Flomax - PO 0.4 mg DAILY@0830 ANURADHA Administration CBC, BMP 03/29/16 06:30 03/31/16 05:35 EKG 03/25/16: afib, vr 111, nonspecific tw changes, no st changes CXR: congestion, infiltrates Echo 10/2015: Moderately decreased LV function (global). Nl RV size/fn. 1+ MR. mild-mod TR. mild ao dilation. Trivial effusion. cath 06/2013: 60-70 rpl1, 80-90 d1, subtotal om1 MIBI 08/2014 (pers): no STs; no ischemia seen; predominantly fixed medium-sized inferior/basal inferolat/apico-inferior defect c/w diaphragm attenuation; EF 46% tele: afib, rate controlled a/p: 55 yo with h/o afib with prior ?embolic CVA 05/2014 ([facility]) right visual field cut, syncope 09/19 with ICH at that time vs other entity on MRI and recurrent syncope 12/2015 (unclear etiology), Non-ischemic cardiomyopathy dx 2013 at [facility], HTN, HPL, Rt carotid stenosis, IDDM, RLE cellulitis s/p debridement, MSSA bacteremia 10/2015, DAMIAN not on home cpap, ckd, who presents with sob. sob, acute systolic HF exacerbation (NICM), PNA - admitted last month for chf and diuresed to wt in 340s. Had been feeling well for a whole month on torsemide 60 until day before admit when he noticed decreased UOP and sob. Here in ER his wt is at baseline and does not appear grossly vol overloaded. Given trial of iv lasix 80 bid which has diruesed him well in past. Also getting abx for PNA. - 03/28: CXR still with possible mild congestion, but significantly improved. LFT's normalizing and creatinine now worsened. Will switch to PO regimen. will try slightly higher dose of torsemide (80 mg daily.) - 03/29: cont po torsemide - 03/30-: cr remains elevated so will cont to hold diuretic for now. Monitor cr, when back to baseline will resume prior torsemide 60 mg po qd - cont home LV dysfxn regimen: bb, imdur/hydralazine (not on kaylan/arb 2/2 ckd) - mgm't of pna per pmd/ID. 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 Contrast enhancing lesion seen 06/19 and the prior heme on MRI were in same location and was thought to be most likely 2/2 post CVA hemorrhagic conversion (i.e. without hi risk for recurrent ICH). Less likely low-grade glioma, which would have very low risk of bleeding if AC resumed--hence the recs at that time were for usual AC considerations for his afib, no special precautions (pt failed repeatedly to f/u with neuro as outpatient, and then worsening renal fxn made him hi risk for morena when here last time). -warfarin changed to eliquis on past admits due to pt's repeated refusal to f/u with cardiology or have reliable INRs and make rec'd coumadin dose change, with worrisome CHADS-VASC 6 = estimated risk 9-10%/year, and hence concern he will stroke again on warfarin. - now on eliquis - Con't home regimen toprol 150 mg bid, rate controlled, can dc tele cad: -managed medically, no angina/ACS/ischemia since -Here with borderline elevation in troponin, flat trend, consistent with prior baseline values. no signs acs, instead likely due to CHF and CKD. -continue home statin, bb, imdur, hydralazine -con't to defer ASA as pt with stable CAD in past and also on AC R carotid stenosis: -ADRIENNE with PSV in high 200s cm/sec here, suspicious for >70% stenosis per radiology report -vascular surgery c/s on prior admit felt stenosis is at MOST 70% (deferred further imaging with contrast due to low GFR). Recommended deferring CEA unless imaging suggested >80% stenosis, or if he developed symptoms/acute cerebrovascular event. Ao dilation - Con't bb. Routine outpatient surveillance CKD: - baseline cr 2.5-2.6 - plan as above - renal following as well
[2016-03-31] MEDS: CLINDAMYCIN HCL 150 MG CAPSULE (FP) PO SCH ×3 (11:54→21:15)
--- NOTE | 2016-03-31 12:40 | PN ---
Progress Note (short form) - Note Progress Note: Renal Follow up for GILLES/CKD Pt seen and examined at the bedside no acute complaints no sob or chest pain weight remain elevated Vital Signs Temperature 97.5 F L 03/31/16 06:00 Pulse Rate 74 03/31/16 11:38 Respiratory Rate 18 03/31/16 06:00 Blood Pressure 105/45 03/31/16 06:00 O2 Sat by Pulse Oximetry (%) 96 03/31/16 11:38 Intake & Output 03/28/16 03/29/16 03/30/16 03/31/16 23:59 23:59 23:59 23:59 Intake Total 6666 698 4173 130 Balance 5851 934 0156 130 Weight 339 lb 9.6 oz 341 lb 9.6 oz 347 lb 348 lb 3.2 oz Gen: NAD, awake and alert CVS: RRR NO M/R Lungs: CTA Abd: soft NT/ND, Obese Ezt: Trace to 1+ edema in LE CBC, BMP 03/29/16 06:30 03/31/16 05:35 Current Medications Amlodipine Besylate (Norvasc -) 5 mg PO DAILY [facility] Last Admin: 03/31/16 09:34 Dose: 5 mg Apixaban (Eliquis -) 5 mg PO BID [facility] Last Admin: 03/31/16 09:35 Dose: 5 mg Atorvastatin Calcium (Lipitor -) 10 mg PO HS [facility] Last Admin: 03/30/16 21:31 Dose: 10 mg Clindamycin HCl (Cleocin -) 300 mg PO TID [facility] Stop: 04/01/16 22:01 Last Admin: 03/31/16 11:54 Dose: 300 mg Hydralazine HCl (Apresoline -) 100 mg PO TID [facility] Last Admin: 03/31/16 05:45 Dose: 100 mg Insulin Aspart (Novolog Vial Sliding Scale -) 1 vial SQ [facility] PRN Reason: Protocol Last Admin: 03/31/16 11:54 Dose: Not Given Insulin Detemir (Levemir Vial) 28 units SQ [facility] Last Admin: 03/30/16 21:32 Dose: 28 units Isosorbide Mononitrate (Imdur -) 60 mg PO BID [facility] Last Admin: 03/31/16 09:35 Dose: 60 mg Metoprolol Succinate (Toprol Xl -) 150 mg PO BID [facility] Last Admin: 03/31/16 09:34 Dose: 150 mg Nystatin (Mycostatin Cream -) 1 applic TP BID [facility] Last Admin: 03/31/16 09:35 Dose: 1 applic Tamsulosin HCl (Flomax -) 0.4 mg PO DAILY@0830 [facility] Last Admin: 03/31/16 09:35 Dose: 0.4 mg A/P 55 year old Gentleman with PMhx of CKD Stage 4, CHF, Afib, CAD, Diverticulitis, HTN, HlD presentd with CP/SOB with BUN/Cr of 55 year old male with a significant past medical history of diabetes, CHF, AFib , arteriosclerotic heart disease, cardiomegaly, diverticulitis, chronic renal insufficiency, chronic kidney disease, hypertension, and hyperlipidemia, presenting to the Emergency Department with chest pain and urinary retention. 32 /2.2. #CKD with Chronic Volume overload and proteinuria Renal function worse then baseline continue to hold diuretics at this time #CHF Volume status is improved holding diuretics at the present time, restart with improvement in renal function Trend daily weights Cardiology following #Suspected PNA Continue Emperic Abx #Hyperphosphatemia low phos diet Thank you Steven Wyatt DO
--- NOTE | 2016-03-31 14:18 | PN ---
Physical Exam: SUBJECTIVE: Patient seen and examined bedside. Pt. states that he is feeling well this morning. Reports feeling short of breath while sleeping last night while laying down. He was able to catch his breath after sitting for a period of time wearing O2. He was able to return to bed to sleep the rest of the evening. Currently denying SOB, wheezing, dyspnea. He denies SOB with walking. OBJECTIVE: Vital Signs Period Temp Pulse Resp BP Sys/Perez Pulse Ox Last 24 Hr 97.0 F-98 F 74-93 18-20 105-137/45-92 95-98 GENERAL: The patient is awake, alert, and fully oriented, in no acute distress. HEAD: Normal with no signs of trauma. EYES: PERRL, extraocular movements intact, sclera anicteric, conjunctiva clear. No ptosis. ENT: Ears normal, nares patent, oropharynx clear without exudates, moist mucous membranes. NECK: Trachea midline, full range of motion, supple. LUNGS: Breath sounds equal, clear to auscultation bilaterally, no wheezes, no crackles, no accessory muscle use. HEART: Irregular rate and rhythm, S1, S2 without murmur, rub or gallop. ABDOMEN: Soft, nontender, nondistended, normoactive bowel sounds, no guarding, no rebound, no hepatosplenomegaly, no masses. EXTREMITIES: Trace-1+ pedal edema. 2+ pulses, warm, well-perfused.. NEUROLOGICAL: Cranial nerves II through XII grossly intact. Normal speech, gait not observed. PSYCH: Normal mood, normal affect. SKIN: Warm, dry, normal turgor, no rashes or lesions noted Laboratory Results - last 24 hr 03/30/16 03/30/16 03/31/16 16:36 21:28 05:35 Sodium 139 Potassium 4.3 Chloride 103 Carbon Dioxide 24 Anion Gap 12 BUN 57 H Creatinine 3.5 H POC Glucometer 186 150 Random Glucose 109 H Calcium 7.8 L Phosphorus 5.7 H Magnesium 2.4 03/31/16 03/31/16 05:39 11:39 Sodium Potassium Chloride Carbon Dioxide Anion Gap BUN Creatinine POC Glucometer 129 120 Random Glucose Calcium Phosphorus Magnesium Active Medications Generic Name Dose Route Start Last Admin Trade Name Freq PRN Reason Stop Dose Admin Amlodipine Besylate 5 mg 03/26/16 10:00 03/31/16 09:34 Norvasc - PO 5 mg DAILY ANURADHA Administration Apixaban 5 mg 03/26/16 10:00 03/31/16 09:35 Eliquis - PO 5 mg BID ANURADHA Administration Atorvastatin Calcium 10 mg 03/26/16 22:00 03/30/16 21:31 Lipitor - PO 10 mg HS ANURADHA Administration Clindamycin HCl 300 mg 03/31/16 08:00 03/31/16 11:54 Cleocin - PO 04/01/16 22:01 300 mg TID ANURADHA Administration Hydralazine HCl 100 mg 03/26/16 14:00 03/31/16 05:45 Apresoline - PO 100 mg TID ANURADHA Administration Insulin Aspart 1 vial 03/27/16 16:30 03/31/16 11:54 Novolog Vial Sliding Scale - SQ Not Given [facility] Protocol Insulin Detemir 28 units 03/27/16 22:00 03/30/16 21:32 Levemir Vial SQ 28 units HS ANURADHA Administration Isosorbide Mononitrate 60 mg 03/26/16 10:00 03/31/16 09:35 Imdur - PO 60 mg BID ANURADHA Administration Metoprolol Succinate 150 mg 03/26/16 10:00 03/31/16 09:34 Toprol Xl - PO 150 mg BID ANURADHA Administration Nystatin 1 applic 03/26/16 22:00 03/31/16 09:35 Mycostatin Cream - TP 1 applic BID ANURADHA Administration Tamsulosin HCl 0.4 mg 03/28/16 11:15 03/31/16 09:35 Flomax - PO 0.4 mg DAILY@0830 ANURADHA Administration ASSESSMENT/PLAN: Imaging: CXR 03/26/16: Worsening progressive bilateral pulmonary and pleural changes. Large heart. Unfolded aorta CXR 03/28/16: No evidence of active pulmonary disease Pt. is a 55 y/o male who has a PMH of IDDM, CHF, Afib, CAD, CVA (Ischemic 05/20, hemorrhagic (?) 06/19), CKD, renal insufficiency, HTN, hyperlipidemia, cirrhosis who was admitted on 03/26/16 for PNA and CHF exacerbation. Acute on chronic systolic heart failure (NICM) -- Clinically improved, less SOB, trace lower extremity edema. -- Creatinine continues to rise; Per renal, holding PO torsimide (day 2). Cr , 3.4--> 3.5 today. Bun 57 up from 45. -- Continue with amlodipine, metoprolol, hydralazine. -- Daily weights up .5 kgs today. 157 kgs --> 157.5kgs today. Continue to fluid restrict, 1L per 24 hrs. CKD -- Baseline Cr is 2.5-2.6, 2.8 on admission; steadily trending up. 3.5 today. -- All diuretics on hold -- Renal following -- Can consider discharge when Cr. begins to drop. Bacterial hospital acquired pneumonia -- Pt. is afebrile; leukocytosis appears to be chronic -- Course of zosyn completed (3 days). -- Continue PO clindamycin (day 6). Discussed with Dr. Anderson, will continue clinamycin through 04/01/16. Atrial Fibrillation on Anticoagulation -- Rate well controlled in the 70's, continue with Metoprolol. -- CHADS-VASc2 score 6. High risk for future event. -- Continue Eliquis for anticoagulation. CAD --flat trending troponins likely secondary to CHF --continue Torpol XL, amlodipine, Lipitor --per cardiology, no indication for ASA at this time since CAD stable and on a/c HTN --continue Toprol, amlodipine, hydralazine. Hyperlipidemia -- Continue atorvastatin IDDM -- Continue Home dose Levemir 28units -- Novolog sliding scale coverage Hypokalemia -- Resolved History of ischemic CVA (05/20), possible hemorrhagic stroke (06/19) --stable, no acute issues F/E/N 1. Fluids: 1L daily fluid restriction 2. Replenish electrolytes as needed 3. Low salt diet DVT prophlyaxis: Pt is on Eliquis, OOB with walking Dispo: Pt. continues to require inpatient care. Full code status. Visit type - Emergency Visit Emergency Visit: Yes ED Registration Date: 03/26/16 Care time: The patient presented to the Emergency Department on the above date and was hospitalized for further evaluation of their emergent condition. - New Patient This patient is new to me today: No - Critical Care Critical Care patient: No - Discharge Referral Referred to [facility] Med P.C.: No
--- NOTE | 2016-03-31 16:48 | PN ---
Progress Note, Physician History of Present Illness: patient with resp issues difficulty breathing on ventimask now feels better - Current Medication List Current Medications: Active Medications Amlodipine Besylate (Norvasc -) 5 mg PO DAILY [facility] Last Admin: 03/31/16 09:34 Dose: 5 mg Apixaban (Eliquis -) 5 mg PO BID [facility] Last Admin: 03/31/16 09:35 Dose: 5 mg Atorvastatin Calcium (Lipitor -) 10 mg PO [facility] Last Admin: 03/30/16 21:31 Dose: 10 mg Clindamycin HCl (Cleocin -) 300 mg PO TID [facility] Stop: 04/01/16 22:01 Last Admin: 03/31/16 14:37 Dose: Not Given Hydralazine HCl (Apresoline -) 100 mg PO TID [facility] Last Admin: 03/31/16 15:09 Dose: 100 mg Insulin Aspart (Novolog Vial Sliding Scale -) 1 vial SQ [facility] PRN Reason: Protocol Last Admin: 03/31/16 11:54 Dose: Not Given Insulin Detemir (Levemir Vial) 28 units SQ [facility] Last Admin: 03/30/16 21:32 Dose: 28 units Isosorbide Mononitrate (Imdur -) 60 mg PO BID [facility] Last Admin: 03/31/16 09:35 Dose: 60 mg Metoprolol Succinate (Toprol Xl -) 150 mg PO BID [facility] Last Admin: 03/31/16 09:34 Dose: 150 mg Nystatin (Mycostatin Cream -) 1 applic TP BID [facility] Last Admin: 03/31/16 09:35 Dose: 1 applic Tamsulosin HCl (Flomax -) 0.4 mg PO DAILY@0830 [facility] Last Admin: 03/31/16 09:35 Dose: 0.4 mg - Objective Vital Signs: Vital Signs Temperature 97.8 F 03/31/16 15:17 Pulse Rate 84 03/31/16 15:17 Respiratory Rate 22 03/31/16 15:17 Blood Pressure 141/68 03/31/16 15:17 O2 Sat by Pulse Oximetry (%) 96 03/31/16 11:38 Constitutional: Yes: No Distress, Calm, Obese Cardiovascular: Yes: Regular Rate and Rhythm Respiratory: Yes: Regular, On Venti-Mask, Poor Air Entry Gastrointestinal: Yes: Normal Bowel Sounds, Soft Extremities: Yes: WNL Edema: LLE: Trace, RLE: Trace Neurological: Yes: Alert, Oriented Labs: CBC, BMP 03/29/16 06:30 03/31/16 05:35 INR, PTT INR 1.21 (0.82-1.09) H 03/26/16 01:42 Assessment/Plan 1. CHF Exacerbation 2. Chest Pain 3. Afib With RVR 4. CKD 5. HTN 6. HLD 7. CVA 8 PNA 9 leukocytosis plan continue to monitor resp status pul on board close watch
[2016-03-31] MEDS: PIPERACILLIN/TAZOB 3.375 GM 50 ML IVPB SCH (18:50)
[2016-03-31] MEDS: ATORVASTATIN CA 10 MG TABLET (FP) PO SCH (21:15)
[2016-03-31] MEDS: INSULIN DETEMIR 100 UNITS/ML MDV SQ SCH (21:17)
[2016-04-01] MEDS: CLINDAMYCIN HCL 150 MG CAPSULE (FP) PO SCH ×2 (05:52→14:32)
[2016-04-01] MEDS: hydrALAZINE HCL 50 MG TABLET (FP) PO SCH ×3 (05:52→21:58)
[2016-04-01] MEDS: INSULIN SLIDING SCALE (NOVOLOG) 1 VIAL SQ SCH ×4 (06:00→22:00)
[2016-04-01 08:12] LABS: CALCIUM 8.3 mg/dL (8.5-10.1); CREATININE 3.4 mg/dL (0.7-1.3); MAGNESIUM 2.5 mg/dL (1.8-2.4); PHOSPHOROUS 5.3 mg/dL (2.5-4.9)
[2016-04-01] MEDS: TAMSULOSIN HCL 0.4 MG CAP.ER.24H (FP) PO SCH (08:43)
[2016-04-01] MEDS ORDERED: PT OWN MED DRAWER 7, Y5N ONE (09:03)
[2016-04-01] MEDS: METOPROLOL SUCCINATE 100 MG TAB.SR.24H (FP) PO SCH ×2 (09:04→21:59)
[2016-04-01] MEDS: amLODIPine BESYLATE 5 MG TABLET (FP) PO SCH (09:04)
[2016-04-01] MEDS: ISOSORBIDE MONONITRATE 60 MG TAB.SR.24H (FP) PO SCH ×2 (09:04→21:59)
[2016-04-01] MEDS: NYSTATIN 100,000 UNIT/GM TOPICAL CREAM 15 GM TUBE TP SCH ×2 (09:04→22:00)
[2016-04-01] MEDS: APIXABAN 5 MG TABLET PO SCH ×2 (09:04→21:59)
--- NOTE | 2016-04-01 11:04 | PN ---
Physical Exam: SUBJECTIVE: Patient seen and examined OBJECTIVE: Vital Signs Period Temp Pulse Resp BP Sys/Perez Pulse Ox Last 24 Hr 97.8 F-98.5 F 74-91 18-22 119-141/68-80 95-98 GENERAL: The patient is awake, alert, and fully oriented, in no acute distress. HEAD: Normal with no signs of trauma. EYES: PERRL, extraocular movements intact, sclera anicteric, conjunctiva clear. No ptosis. ENT: Ears normal, nares patent, oropharynx clear without exudates, moist mucous membranes. NECK: Trachea midline, full range of motion, supple. LUNGS: Breath sounds equal, clear to auscultation bilaterally, no wheezes, no crackles, no accessory muscle use. HEART: Regular rate and rhythm, S1, S2 without murmur, rub or gallop. ABDOMEN: Soft, nontender, nondistended, normoactive bowel sounds, no guarding, no rebound, no hepatosplenomegaly, no masses. EXTREMITIES: 2+ pulses, warm, well-perfused, no edema. NEUROLOGICAL: Cranial nerves II through XII grossly intact. Normal speech, gait not observed. PSYCH: Normal mood, normal affect. SKIN: Warm, dry, normal turgor, no rashes or lesions noted Laboratory Results - last 24 hr 03/31/16 03/31/16 03/31/16 11:39 16:52 21:13 Sodium Potassium Chloride Carbon Dioxide Anion Gap BUN Creatinine POC Glucometer 120 162 120 Random Glucose Calcium Phosphorus Magnesium 04/01/16 04/01/16 05:47 06:00 Sodium 136 Potassium 4.2 Chloride 102 Carbon Dioxide 25 Anion Gap 9 BUN 58 H Creatinine 3.4 H POC Glucometer 101 Random Glucose 92 Calcium 8.3 L Phosphorus 5.3 H Magnesium 2.5 H Active Medications Generic Name Dose Route Start Last Admin Trade Name Freq PRN Reason Stop Dose Admin Amlodipine Besylate 5 mg 03/26/16 10:00 04/01/16 09:04 Norvasc - PO 5 mg DAILY ANURADHA Administration Apixaban 5 mg 03/26/16 10:00 04/01/16 09:04 Eliquis - PO 5 mg BID ANURADHA Administration Atorvastatin Calcium 10 mg 03/26/16 22:00 03/31/16 21:15 Lipitor - PO 10 mg HS ANURADHA Administration Clindamycin HCl 300 mg 03/31/16 08:00 04/01/16 05:52 Cleocin - PO 04/01/16 22:01 300 mg TID ANURADHA Administration Hydralazine HCl 100 mg 03/26/16 14:00 04/01/16 05:52 Apresoline - PO 100 mg TID ANURADHA Administration Insulin Aspart 1 vial 03/27/16 16:30 04/01/16 06:00 Novolog Vial Sliding Scale - SQ Not Given ACHS COUNT INCLUDES [facility] Protocol Insulin Detemir 28 units 03/27/16 22:00 03/31/16 21:17 Levemir Vial SQ 28 units HS ANURADHA Administration Isosorbide Mononitrate 60 mg 03/26/16 10:00 04/01/16 09:04 Imdur - PO 60 mg BID ANURADHA Administration Metoprolol Succinate 150 mg 03/26/16 10:00 04/01/16 09:04 Toprol Xl - PO 150 mg BID ANURADHA Administration Nystatin 1 applic 03/26/16 22:00 04/01/16 09:04 Mycostatin Cream - TP 1 applic BID [facility] Administration Tamsulosin HCl 0.4 mg 03/28/16 11:15 04/01/16 08:43 Flomax - PO 0.4 mg DAILY@0830 [facility] Administration ASSESSMENT/PLAN:
--- NOTE | 2016-04-01 11:16 | PN ---
Progress Note (short form) - Note Progress Note: Renal Follow up for GILLES/CKD Pt seen and examined at the bedside overnight events noted, SOB last night, improved with O2 no chest pain has not ambulated this am Vital Signs Temperature 98.0 F 03/31/16 22:00 Pulse Rate 91 H 03/31/16 22:00 Respiratory Rate 18 03/31/16 22:00 Blood Pressure 119/74 03/31/16 22:00 O2 Sat by Pulse Oximetry (%) 98 04/01/16 00:25 Intake & Output 03/29/16 03/30/16 03/31/16 04/01/16 23:59 23:59 23:59 23:59 Intake Total 860 1280 130 Balance 860 1280 130 Weight 341 lb 9.6 oz 347 lb 348 lb 3.2 oz 349 lb 4.8 oz Gen: NAD, awake and alert CVS: RRR NO M/R Lungs: CTA Abd: soft NT/ND, Obese Ezt: Trace to 1+ edema in LE CBC, BMP 03/29/16 06:30 04/01/16 06:00 Current Medications Amlodipine Besylate (Norvasc -) 5 mg PO DAILY [facility] Last Admin: 04/01/16 09:04 Dose: 5 mg Apixaban (Eliquis -) 5 mg PO BID [facility] Last Admin: 04/01/16 09:04 Dose: 5 mg Atorvastatin Calcium (Lipitor -) 10 mg PO HS [facility] Last Admin: 03/31/16 21:15 Dose: 10 mg Clindamycin HCl (Cleocin -) 300 mg PO TID [facility] Stop: 04/01/16 22:01 Last Admin: 04/01/16 05:52 Dose: 300 mg Hydralazine HCl (Apresoline -) 100 mg PO TID [facility] Last Admin: 04/01/16 05:52 Dose: 100 mg Insulin Aspart (Novolog Vial Sliding Scale -) 1 vial SQ [facility] PRN Reason: Protocol Last Admin: 04/01/16 06:00 Dose: Not Given Insulin Detemir (Levemir Vial) 28 units SQ HS [facility] Last Admin: 03/31/16 21:17 Dose: 28 units Isosorbide Mononitrate (Imdur -) 60 mg PO BID [facility] Last Admin: 04/01/16 09:04 Dose: 60 mg Metoprolol Succinate (Toprol Xl -) 150 mg PO BID [facility] Last Admin: 04/01/16 09:04 Dose: 150 mg Nystatin (Mycostatin Cream -) 1 applic TP BID [facility] Last Admin: 04/01/16 09:04 Dose: 1 applic Tamsulosin HCl (Flomax -) 0.4 mg PO DAILY@0830 [facility] Last Admin: 04/01/16 08:43 Dose: 0.4 mg A/P 55 year old male with a significant past medical history of diabetes, CHF, AFib , arteriosclerotic heart disease, cardiomegaly, diverticulitis, chronic renal insufficiency, chronic kidney disease, hypertension, and hyperlipidemia, presenting to the Emergency Department with chest pain. #CKD with Chronic Volume overload and proteinuria Renal function stable the last 34 hours pt with sob yesterday can restart diuretics as needed per cardiology trend BUN/cr #CHF Volume status is improved Trend daily weights Cardiology following #Suspected PNA Continue Emperic Abx #Hyperphosphatemia low phos diet Thank you Steven Wyatt DO
[2016-04-01] MEDS ORDERED: INSULIN (NOVOLOG) ASPART 100 UNITS/ML 10ML VIAL ONE (12:15)
--- NOTE | 2016-04-01 14:23 | PN ---
Progress Note, Physician History of Present Illness: stable no complaints - Current Medication List Current Medications: Active Medications Amlodipine Besylate (Norvasc -) 5 mg PO DAILY [facility] Last Admin: 04/01/16 09:04 Dose: 5 mg Apixaban (Eliquis -) 5 mg PO BID [facility] Last Admin: 04/01/16 09:04 Dose: 5 mg Atorvastatin Calcium (Lipitor -) 10 mg PO HS [facility] Last Admin: 03/31/16 21:15 Dose: 10 mg Hydralazine HCl (Apresoline -) 100 mg PO TID [facility] Last Admin: 04/01/16 14:14 Dose: 100 mg Insulin Aspart (Novolog Vial Sliding Scale -) 1 vial SQ [facility] PRN Reason: Protocol Last Admin: 04/01/16 12:20 Dose: Not Given Insulin Detemir (Levemir Vial) [address] [facility] Last Admin: 03/31/16 21:17 Dose: 28 units Isosorbide Mononitrate (Imdur -) 60 mg PO BID [facility] Last Admin: 04/01/16 09:04 Dose: 60 mg Metoprolol Succinate (Toprol Xl -) 150 mg PO BID [facility] Last Admin: 04/01/16 09:04 Dose: 150 mg Nystatin (Mycostatin Cream -) 1 applic TP BID [facility] Last Admin: 04/01/16 09:04 Dose: 1 applic Tamsulosin HCl (Flomax -) 0.4 mg PO DAILY@0830 [facility] Last Admin: 04/01/16 08:43 Dose: 0.4 mg - Objective Vital Signs: Vital Signs Temperature 98.0 F 04/01/16 10:00 Pulse Rate 85 04/01/16 10:00 Respiratory Rate 20 04/01/16 10:00 Blood Pressure 131/71 04/01/16 10:00 O2 Sat by Pulse Oximetry (%) 98 04/01/16 00:25 Constitutional: Yes: No Distress, Calm, Obese Cardiovascular: Yes: Regular Rate and Rhythm Respiratory: Yes: Regular, Poor Air Entry Musculoskeletal: Yes: WNL Extremities: Yes: WNL Neurological: Yes: Alert, Oriented Psychiatric: Yes: Alert Labs: CBC, BMP 03/29/16 06:30 04/01/16 06:00 INR, PTT INR 1.21 (0.82-1.09) H 03/26/16 01:42 Assessment/Plan 1. CHF Exacerbation 2. Chest Pain 3. Afib With RVR 4. CKD 5. HTN 6. HLD 7. CVA 8 PNA 9 leukocytosis plan continue to monitor resp status pul on board close watch will stop clinda
--- NOTE | 2016-04-01 16:48 | PN ---
Physical Exam: SUBJECTIVE: Patient seen and examined. He was walking around his room, in no acute respiratory distress. He denies any chest pain or shortness of breath. States he has orthopnea, wears oxygen for sleep. OBJECTIVE: Vital Signs Period Temp Pulse Resp BP Sys/Perez Pulse Ox Last 24 Hr 97.5 F-98.0 F 80-91 18-20 113-141/54-80 94-98 ENERAL: The patient is awake, alert, and fully oriented, in no acute distress. HEAD: Normal with no signs of trauma. EYES: PERRL, extraocular movements intact, sclera anicteric, conjunctiva clear. No ptosis. ENT: Ears normal, nares patent, oropharynx clear without exudates, moist mucous membranes. NECK: Trachea midline, full range of motion, supple. LUNGS: Breath sounds equal, clear to auscultation bilaterally, no wheezes, no crackles, no accessory muscle use. HEART: Irregular rate and rhythm, S1, S2 without murmur, rub or gallop. ABDOMEN: Soft, nontender, nondistended, normoactive bowel sounds, no guarding, no rebound, no hepatosplenomegaly, no masses. EXTREMITIES: Non pitting bilateral lower extremity edema NEUROLOGICAL: Normal speech, gait not observed PSYCH: Normal mood, normal affect. SKIN: Warm, dry, normal turgor, no rashes or lesions noted Laboratory Results - last 24 hr 03/31/16 03/31/16 04/01/16 16:52 21:13 05:47 Sodium Potassium Chloride Carbon Dioxide Anion Gap BUN Creatinine POC Glucometer 162 120 101 Random Glucose Calcium Phosphorus Magnesium 04/01/16 04/01/16 06:00 12:19 Sodium 136 Potassium 4.2 Chloride 102 Carbon Dioxide 25 Anion Gap 9 BUN 58 H Creatinine 3.4 H POC Glucometer 125 Random Glucose 92 Calcium 8.3 L Phosphorus 5.3 H Magnesium 2.5 H Active Medications Generic Name Dose Route Start Last Admin Trade Name Freq PRN Reason Stop Dose Admin Amlodipine Besylate 5 mg 03/26/16 10:00 04/01/16 09:04 Norvasc - PO 5 mg DAILY ANURADHA Administration Apixaban 5 mg 03/26/16 10:00 04/01/16 09:04 Eliquis - PO 5 mg BID ANURADHA Administration Atorvastatin Calcium 10 mg 03/26/16 22:00 03/31/16 21:15 Lipitor - PO 10 mg HS ANURADHA Administration Hydralazine HCl 100 mg 03/26/16 14:00 04/01/16 14:14 Apresoline - PO 100 mg TID ANURADHA Administration Insulin Aspart 1 vial 03/27/16 16:30 04/01/16 12:20 Novolog Vial Sliding Scale - SQ Not Given ACHS [facility] Protocol Insulin Detemir 28 units 03/27/16 22:00 03/31/16 21:17 Levemir Vial SQ 28 units HS ANURADHA Administration Isosorbide Mononitrate 60 mg 03/26/16 10:00 04/01/16 09:04 Imdur - PO 60 mg BID ANURADHA Administration Metoprolol Succinate 150 mg 03/26/16 10:00 04/01/16 09:04 Toprol Xl - PO 150 mg BID ANURADHA Administration Nystatin 1 applic 03/26/16 22:00 04/01/16 09:04 Mycostatin Cream - TP 1 applic BID ANURADHA Administration Tamsulosin HCl 0.4 mg 03/28/16 11:15 04/01/16 08:43 Flomax - PO 0.4 mg DAILY@0830 ANURADHA Administration ASSESSMENT/PLAN: Patient is a 55 year old male with a significant paost medical history of diabetes mellitus, CHF, Afib, CAD, CVA (Ischemic 05/20, hemorrhagic? 06/19), CKD, renal insufficiency, HTN, hyperlipidemia, cirrhosis who was admitted on 03/26/16 for pneumonia and CHF exacerbation. Imaging: Chest xray 03/26/16: Worsening progressive bilateral pulmonary and pleural changes. Large heart. Unfolded aorta Chest xray 03/28/16: No evidence of active pulmonary disease Cardiology: Systolic Heart Failure - Acute on chronic Assessment/Plan: Improved, tolerating room air Continues to have bilateral non pitting edema on lower extremities. Creatinine continues to be elevated, 2.2>3.4 renal following, Torsemide on hold Continue Amlodopine, Metoprolol and Hydralizine On 1 liter fluid restriction : Chronic Kidney Disease Assessment/Plan: Baseline creatinine is ~ 2.5, continues to trend up Diuretics currently on hold Renal following Pneumonia - improving Assessment/Plan: Patient remains afebrile WBC 12.5 which appears to be chronic leukocytosis? Completed Zosyn, Clindamycin stopped by ID Atrial Fibrillation Assessment/Plan: Rate control with Metoprolol On Eliquis for anticoagulation Elevated Troponins Assessment/Plan: Troponins peaked at 0.10 on 03/26/16, likely secondary to CHF continue Torpol XL, amlodipine, Lipitor Cardiology following Hypertension Assessment/Plan: On Toprol, Amlodopine, hydralazine. Hyperlipidemia Assessment/Plan: Continue atorvastatin Endocrine: Assessment/Plan: Continue Home dose Levemir 28units Novolog sliding scale coverage Neuro: Assessment/Plan: History of ischemic CVA and possible hemorrhagic stroke Stable, monitor F.E.N. Fluids:1L daily fluid restriction Electrolytes: Phos 5.3, trending down. mag 2.5, monitor Nutrition: low salt diet Prophylaxis: DVT: On Eliquis GI: Protonix Disposition: Pt. continues to require inpatient care. Full code. Visit type - Emergency Visit Emergency Visit: Yes ED Registration Date: 03/26/16 Care time: The patient presented to the Emergency Department on the above date and was hospitalized for further evaluation of their emergent condition. - New Patient This patient is new to me today: Yes Date on this admission: 04/01/16 - Critical Care Critical Care patient: No - Discharge Referral Referred to [facility] No
[2016-04-01] MEDS: ATORVASTATIN CA 10 MG TABLET (FP) PO SCH (21:59)
[2016-04-01] MEDS: INSULIN DETEMIR 100 UNITS/ML MDV SQ SCH (22:00)
[2016-04-02] MEDS: hydrALAZINE HCL 50 MG TABLET (FP) PO SCH ×2 (06:34→14:18)
[2016-04-02] MEDS: INSULIN SLIDING SCALE (NOVOLOG) 1 VIAL SQ SCH ×2 (06:35→11:56)
[2016-04-02 07:54] LABS: BASOPHIL 1.2 % (0-2.0); EOSINOPHIL 2.5 % (0-4.5); MCH 28.9 pg (25.7-33.7); MCHC 32.8 g/dl (32.0-35.9); MEAN PLT VOLUME 8.2 fl (7.5-11.1); NEUTROPHILS 76.9 % (42.8-82.8); PLATELET COUNT 217 K/MM3 (134-434); RDW 18.1 % (11.9-15.9); WHITE BLOOD COUNT 11.6 K/mm3 (4.0-10.0)
[2016-04-02 08:19] LABS: ALBUMIN 2.7 g/dl (3.4-5.0); BILIRUBIN,TOTAL 0.7 mg/dL (0.2-1.0); CALCIUM 8.1 mg/dL (8.5-10.1); CREATININE 3.4 mg/dL (0.7-1.3); MAGNESIUM 2.7 mg/dL (1.8-2.4); PHOSPHOROUS 5.5 mg/dL (2.5-4.9); TOT PROT 6.6 g/dl (6.4-8.2)
[2016-04-02] MEDS: TAMSULOSIN HCL 0.4 MG CAP.ER.24H (FP) PO SCH (08:25)
[2016-04-02] MEDS ORDERED: PT OWN MED DRAWER 7, Y5N ONE (10:31)
[2016-04-02] MEDS: APIXABAN 5 MG TABLET PO SCH (10:38)
[2016-04-02] MEDS: METOPROLOL SUCCINATE 100 MG TAB.SR.24H (FP) PO SCH (10:38)
[2016-04-02] MEDS: ISOSORBIDE MONONITRATE 60 MG TAB.SR.24H (FP) PO SCH (10:38)
[2016-04-02] MEDS: amLODIPine BESYLATE 5 MG TABLET (FP) PO SCH (10:38)
[2016-04-02] MEDS: NYSTATIN 100,000 UNIT/GM TOPICAL CREAM 15 GM TUBE TP SCH (10:39)
[2016-04-02] MEDS ORDERED: INSULIN (NOVOLOG) ASPART 100 UNITS/ML 10ML VIAL ONE (11:54)
--- NOTE | 2016-04-02 14:33 | PN ---
Progress Note, Physician History of Present Illness: doing well no resp issues walking around without any issues - Current Medication List Current Medications: Active Medications Amlodipine Besylate (Norvasc -) 5 mg PO DAILY [facility] Last Admin: 04/02/16 10:38 Dose: 5 mg Apixaban (Eliquis -) 5 mg PO BID [facility] Last Admin: 04/02/16 10:38 Dose: 5 mg Atorvastatin Calcium (Lipitor -) 10 mg PO [facility] Last Admin: 04/01/16 21:59 Dose: 10 mg Hydralazine HCl (Apresoline -) 100 mg PO TID [facility] Last Admin: 04/02/16 14:18 Dose: 100 mg Insulin Aspart (Novolog Vial Sliding Scale -) 1 vial SQ [facility] PRN Reason: Protocol Last Admin: 04/02/16 11:56 Dose: Not Given Insulin Detemir (Levemir Vial) 28 units SQ [facility] Last Admin: 04/01/16 22:00 Dose: 28 units Isosorbide Mononitrate (Imdur -) 60 mg PO BID [facility] Last Admin: 04/02/16 10:38 Dose: 60 mg Metoprolol Succinate (Toprol Xl -) 150 mg PO BID [facility] Last Admin: 04/02/16 10:38 Dose: 150 mg Nystatin (Mycostatin Cream -) 1 applic TP BID [facility] Last Admin: 04/02/16 10:39 Dose: 1 applic Tamsulosin HCl (Flomax -) 0.4 mg PO DAILY@0830 [facility] Last Admin: 04/02/16 08:25 Dose: 0.4 mg - Objective Vital Signs: Vital Signs Temperature 98.9 F 04/02/16 07:20 Pulse Rate 70 04/02/16 11:23 Respiratory Rate 18 04/02/16 07:20 Blood Pressure 123/71 04/02/16 07:20 O2 Sat by Pulse Oximetry (%) 94 L 04/02/16 11:23 Constitutional: Yes: No Distress, Calm Cardiovascular: Yes: Regular Rate and Rhythm Respiratory: Yes: Regular, CTA Bilaterally Gastrointestinal: Yes: Normal Bowel Sounds, Soft Musculoskeletal: Yes: WNL Extremities: Yes: WNL Neurological: Yes: Alert, Oriented Psychiatric: Yes: Alert Labs: CBC, BMP 04/02/16 07:00 04/02/16 07:00 INR, PTT INR 1.21 (0.82-1.09) H 03/26/16 01:42 Assessment/Plan 1. CHF Exacerbation 2. Chest Pain 3. Afib With RVR 4. CKD 5. HTN 6. HLD 7. CVA 8 PNA 9 leukocytosis plan continue to monitor resp status pul on board close watch continue to monitor renal
[2016-04-02 14:46] VITALS: BP 134/78; PULSE 81; TEMP 97.5
--- NOTE | 2016-04-02 15:36 | DS ---
Physical Exam: SUBJECTIVE: Patient seen and examined OBJECTIVE: Vital Signs Period Temp Pulse Resp BP Sys/Perez Pulse Ox Last 24 Hr 97.5 F-98.9 F 70-86 18-20 123-134/71-78 94-94 PHYSICAL EXAM GENERAL: The patient is awake, alert, and fully oriented, in no acute distress. HEAD: Normal with no signs of trauma. EYES: PERRL, extraocular movements intact, sclera anicteric, conjunctiva clear. ENT: Ears normal, nares patent, oropharynx clear without exudates, moist mucous membranes. NECK: Trachea midline, full range of motion, supple. LUNGS: Breath sounds equal, clear to auscultation bilaterally, no wheezes, no crackles, no accessory muscle use. HEART: Regular rate and rhythm, S1, S2 without murmur, rub or gallop. ABDOMEN: Soft, nontender, nondistended, normoactive bowel sounds, no guarding, no rebound, no hepatosplenomegaly, no masses. EXTREMITIES: 2+ pulses, warm, well-perfused, no edema. NEUROLOGICAL: Cranial nerves II through XII grossly intact. Normal speech, gait not observed. PSYCH: Normal mood, normal affect. SKIN: Warm, dry, normal turgor, no rashes or lesions noted. LABS Laboratory Results - last 24 hr 04/01/16 04/01/16 04/02/16 17:35 21:57 06:34 WBC RBC Hgb Hct MCV MCHC RDW Plt Count MPV Neutrophils % Lymphocytes % Monocytes % Eosinophils % Basophils % Sodium Potassium Chloride Carbon Dioxide Anion Gap BUN Creatinine Creat Clearance w eGFR POC Glucometer 143 158 92 Random Glucose Calcium Phosphorus Magnesium Total Bilirubin AST ALT Alkaline Phosphatase Total Protein Albumin 04/02/16 04/02/16 04/02/16 07:00 07:00 11:56 WBC 11.6 H RBC 4.47 Hgb 12.9 Hct 39.4 MCV 88.0 MCHC 32.8 RDW 18.1 H Plt Count 217 MPV 8.2 Neutrophils % 76.9 Lymphocytes % 10.7 Monocytes % 8.7 Eosinophils % 2.5 Basophils % 1.2 Sodium 138 Potassium 4.4 Chloride 103 Carbon Dioxide 26 Anion Gap 9 BUN 63 H Creatinine 3.4 H Creat Clearance w eGFR 19.04 POC Glucometer 94 Random Glucose 99 Calcium 8.1 L Phosphorus 5.5 H Magnesium 2.7 H Total Bilirubin 0.7 D AST 14 L ALT 12 Alkaline Phosphatase 126 H Total Protein 6.6 Albumin 2.7 L Date of Admission:03/26/16 Date of Discharge: 04/02/16 Imaging: Chest xray 03/26/16: Worsening progressive bilateral pulmonary and pleural changes. Large heart. Unfolded aorta Chest xray 03/28/16: No evidence of active pulmonary disease EKG 03/25/16: afib, vr 111, nonspecific tw changes, no st changes CXR 03/26/16: progressive congestive changes, possible infiltrates Echo 10/2015: Moderately decreased LV function (global). Nl RV size/fn. 1+ MR. mild-mod TR. mild ao dilation. Trivial effusion. Cath 06/2013: 60-70 rpl1, 80-90 d1, subtotal om1 MIBI 08/2014 (pers): no STs; no ischemia seen; predominantly fixed medium-sized inferior/basal inferolat/apico-inferior defect c/w diaphragm attenuation; EF 46% Patient is a 55 year old male with a significant past medical history of diabetes mellitus, CHF, Afib, CAD, CVA (Ischemic 05/20, hemorrhagic 06/19), CKD, renal insufficiency, HTN, hyperlipidemia, cirrhosis who was admitted on 03/26/16 for pneumonia and CHF exacerbation. Acute on chronic systolic heart failure (NICM) --CXR on admission showed progressive congestive changes since last admission in February 2016 --was aggressively diuresed with IV lasix, then switched to home dose torsemide CKD -- Cr is 2.2 on admission; steadily trended up and then stabilized at 3.4 even off diuretics; may be new baseline Bacterial hospital acquired pneumonia --initial CXR showed RLL infiltrate --received Zosyn x 3 days, PO clinda x 7 days Atrial Fibrillation on Anticoagulation -- Rate well controlled in the 70's, continued metoprolol. -- Continued Eliquis for anticoagulation. CAD --flat trending troponins likely secondary to CHF --continued Torpol XL, amlodipine, Lipitor --per cardiology, no indication for ASA at this time since CAD stable and on a/c HTN --continued Toprol, amlodipine, hydralazine. Hyperlipidemia -- Continued atorvastatin IDDM -- Continued Home dose Levemir 28units -- Novolog sliding scale coverage Hypokalemia -- Resolved History of ischemic CVA (4/), possible hemorrhagic stroke (5) --stable, no acute issues Minutes to complete discharge: 35 Discharge Summary Reason For Visit: A-FIB, CHF, PULMONARY HYPERTENSION Current Active Problems Acute exacerbation of CHF (congestive heart failure) (Acute) Acute renal failure (Acute) CHF (congestive heart failure) (Acute) Dyspnea on exertion (Acute) Pulmonary hypertension (Acute) Shortness of breath (Acute) History of CVA with residual deficit (Chronic) Hyperlipemia (Chronic) Splenic abscess (Chronic) Uncontrolled diabetes mellitus (Chronic) atrial fibrillation (Chronic) Condition: Improved - Instructions Diet, Activity, Other Instructions: Resume taking torsemide 60mg daily. Be sure to follow up with Dr. Ho and Dr. Wyatt within one week of your discharge. Return to the emergency department for any new or worsening symptoms. Referrals: Mika Ho MD [Primary Care Provider] - 1 Week Steven Wyatt MD [Staff Physician] - 1 Week Disposition: HOME - Home Medications Comprehensive Discharge Medication List: Ambulatory Orders Insulin (Novolog) [Novolog Flexpen -] 4 units SQ AC #1 pen 09/07/14 Atorvastatin Ca [Lipitor] 10 mg PO HS #30 tablet 02/26/15 Hydralazine HCl [Apresoline -] 100 mg PO TID #90 tablet 02/26/15 Insulin (Levemir) [Levemir Vial] 28 units SQ HS #7 ml 02/26/15 Isosorbide Mononitrate [Imdur -] 60 mg PO BID #60 tab.sr.24h 02/26/15 Metoprolol Succinate [Toprol XL -] 150 mg PO BID #60 tab.sr.24h 02/26/15 Amlodipine Besylate [Norvasc -] 5 mg PO DAILY #30 tablet 10/29/15 Apixaban [Eliquis -] 5 mg PO BID #60 tablet 10/29/15 Torsemide [Demadex -] 60 mg PO DAILY #90 tablet 12/20/15 Tamsulosin HCl [Flomax -] 0.4 mg PO DAILY@0830 cap.er.24h 04/02/16 This patient is new to me today: No Emergency Visit: Yes ED Registration Date: 03/26/16 Care time: The patient presented to the Emergency Department on the above date and was hospitalized for further evaluation of their emergent condition. Critical Care patient: No - Discharge Referral Referred to [facility] No
== END 2016-04-02 16:10 | disposition home or self-care (01) | DRG 194 ==
LOC: JER 01:25 → JERBED 04:59 → J4W 17:30 → J8W 03-31 18:00
PROVIDERS: ADMIT Internal Medicine; ATTEND Nurse Practitioner Acute Care
DX: I50.23 Acute on chronic systolic (congestive) heart failure (principal); I27.2 Other secondary pulmonary hypertension; Z86.73 Personal history of transient ischemic attack (TIA), and cerebral infarction without residual deficits; Z79.4 Long term (current) use of insulin; M10.9 Gout, unspecified; E78.5 Hyperlipidemia, unspecified; E11.65 Type 2 diabetes mellitus with hyperglycemia; R07.9 Chest pain, unspecified; D72.829 Elevated white blood cell count, unspecified; J18.9 Pneumonia, unspecified organism; I25.10 Atherosclerotic heart disease of native coronary artery without angina pectoris; N17.9 Acute kidney failure, unspecified; E83.39 Other disorders of phosphorus metabolism; I42.9 Cardiomyopathy, unspecified; E87.6 Hypokalemia; I13.0 Hypertensive heart and chronic kidney disease with heart failure and stage 1 through stage 4 chronic kidney disease, or unspecified chronic kidney disease; N18.9 Chronic kidney disease, unspecified; I48.91 Unspecified atrial fibrillation; E66.01 Morbid (severe) obesity due to excess calories; Z68.41 Body mass index [BMI] 40.0-44.9, adult; E87.70 Fluid overload, unspecified
CPT/HCPCS: 36415; 71010-TC; 71020-TC; 76775-TC; 76856-TC; 80048; 80053; 80061; 81003; 81015; 82550; 82570; 83036; 83721; 83735; 83880; 84100; 84156; 84439; 84480; 84481; 84484; 84540; 85025; 85610; 87086; 93005; 93010; 94761; 99285-25

== ENCOUNTER 2016-05-05 17:46 | Inpatient (IN) | payer OTHER ==
[2016-05-05] MEDS ORDERED: ASPIRIN 81 MG CHEWABLE TABLETS PO ONE (18:27)
[2016-05-05] MEDS ORDERED: ASPIRIN COATED 81 MG TABLET.EC ONE (18:43)
[2016-05-05] MEDS ORDERED: ASPIRIN 81 MG CHEWABLE TABLETS ONE ×2 (18:46→18:47)
[2016-05-05 18:48] LABS: BASOPHIL 0.9 % (0-2.0); EOSINOPHIL 2.7 % (0-4.5); MCH 29.1 pg (25.7-33.7); MCHC 33.4 g/dl (32.0-35.9); MEAN PLT VOLUME 7.8 fl (7.5-11.1); PLATELET COUNT 272 K/MM3 (134-434); RDW 17.9 % (11.9-15.9); WHITE BLOOD COUNT 14.2 K/mm3 (4.0-10.0)
[2016-05-05 19:04] LABS: INR 1.33 (0.82-1.09); PROTHROMBIN TIME (PATIENT) 14.7 SEC (9.98-11.88)
[2016-05-05 19:06] LABS: ACTIVATED PTT 29.9 SECONDS (26.9-34.4)
--- NOTE | 2016-05-05 19:07 | PDOC ---
History of Present Illness - General History Source: Patient, Old Records Exam Limitations: No Limitations - History of Present Illness Initial Comments: 05/05/16 19:48 The patient is a 55 year old male, with a significant past medical history of hypertension, hyperlipidemia, diabetes, atrial fibrillation (on Eliquis), cardiomegaly, coronary artery disease, CHF, CVA, diverticulitis, chronic renal insufficiency and cirrhosis, who presents to the emergency department with intermittent sharp midsternal chest pain since earlier today. The patient reports that episodes of chest pain last a couple of minutes. The patient additionally reports that over the past 3 days, he has been experiencing increasingly lower extremity edema and worsening dyspnea on exertion despite compliance with 60 mg Lasix daily. The patient additionally reports that he has been urinating less. The patient denies fever, chills, nausea, vomiting, diarrhea or any recent illnesses. Allergies: Ciprofloxacin, Ciprofloxacin HCl. Past Surgical History: Orthopedic Surgeries. Social History: Non smoker. Reports social alcohol use. Denies drug use. 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 <Elda Syed - Last Filed: 05/05/16 19:48> - General History Source: Patient Exam Limitations: No Limitations <Henry Zhang - Last Filed: 05/05/16 20:26> - General Chief Complaint: Chest Pain Stated Complaint: CHEST PAIN,SOB Time Seen by Provider: 05/05/16 18:10 Past History <Elda Syed - Last Filed: 05/05/16 19:48> - Past Medical History Anemia: No Asthma: No Cancer: No Cardiac Disorders: Yes (a-fib, "blood clot on heart", CAD, ASHD, Non-ichemic CMP , cardiomegaly) CVA: Yes (05/20(ischemic), 06/19(leftside occipital hemmorrage)-right peripheral impair) COPD: No CHF: Yes Dementia: No Diabetes: Yes (IDDM) GI Disorders: Yes (DIVERTICULOSIS, spleenic abcess) Disorders: Yes (CKD, CRI) HTN: Yes Hypercholesterolemia: Yes Liver Disease: Yes (CIRRHOSIS) Suicide Attempt (Hx): No Seizures: No Thyroid Disease: No - Surgical History Orthopedic Surgery: Yes (RT FOOT debridements) - Immunization History Immunization Up to Date: Yes - Psycho/Social/Smoking Cessation Hx Anxiety: No Suicidal Ideation: No Smoking History: Never smoked Have you smoked in the past 12 months: No Hx Alcohol Use: Yes (SOCIALLY) Drug/Substance Use Hx: No Substance Use Type: None Hx Substance Use Treatment: No <Henry Zhang - Last Filed: 05/05/16 20:26> - Past Medical History Allergies/Adverse Reactions: Allergies Allergy/AdvReac Type Severity Reaction Status Date / Time ciprofloxacin [From Cipro] Allergy Severe Rash Verified 05/05/16 17:48 ciprofloxacin HCl Allergy Severe Rash Verified 05/05/16 17:48 [From Cipro] Home Medications: Ambulatory Orders Insulin (Novolog) [Novolog Flexpen -] 4 units SQ AC #1 pen 09/07/14 Atorvastatin Ca [Lipitor] 10 mg PO HS #30 tablet 02/26/15 Hydralazine HCl [Apresoline -] 100 mg PO TID #90 tablet 02/26/15 Insulin (Levemir) [Levemir Vial] 28 units SQ HS #7 ml 02/26/15 Isosorbide Mononitrate [Imdur -] 60 mg PO BID #60 tab.sr.24h 02/26/15 Metoprolol Succinate [Toprol XL -] 150 mg PO BID #60 tab.sr.24h 02/26/15 Amlodipine Besylate [Norvasc -] 5 mg PO DAILY #30 tablet 10/29/15 Apixaban [Eliquis -] 5 mg PO BID #60 tablet 10/29/15 Torsemide [Demadex -] 60 mg PO DAILY #90 tablet 12/20/15 Tamsulosin HCl [Flomax -] 0.4 mg PO DAILY@0830 cap.er.24h 04/02/16 Review of Systems - Review of Systems Able to Perform ROS?: Yes Comments:: 05/05/16 19:40 GENERAL/CONSTITUTIONAL: No fever or chills. No weakness. HEAD, EYES, EARS, NOSE AND THROAT: No change in vision. No ear pain or discharge. No sore throat. CARDIOVASCULAR: +Chest pain, shortness of breath. RESPIRATORY: No cough, wheezing, or hemoptysis. GASTROINTESTINAL: No nausea, vomiting, diarrhea or constipation. GENITOURINARY: +Oliguria. No dysuria or frequency. MUSCULOSKELETAL: No joint or muscle swelling or pain. No neck or back pain. EXTREMITY: +Bilateral lower extremity edema. SKIN: No rash. NEUROLOGIC: No headache, vertigo, loss of consciousness, or change in strength/ sensation. ENDOCRINE: No increased thirst. No abnormal weight change. HEMATOLOGIC/LYMPHATIC: No anemia, easy bleeding, or history of blood clots. ALLERGIC/IMMUNOLOGIC: No hives or skin allergy. <Elda Syed - Last Filed: 05/05/16 19:48> *Physical Exam - Vital Signs Last Vital Signs Temp Pulse Resp BP Pulse Ox 97.9 F 129 H 23 153/126 98 05/05/16 17:48 05/05/16 17:48 05/05/16 17:48 05/05/16 17:48 05/05/16 18:00 - Physical Exam Comments: 05/05/16 19:23 GENERAL: Obese. Awake, alert, and fully oriented, in no acute distress. HEAD: No signs of trauma. EYES: PERRLA, EOMI, sclera anicteric, conjunctiva clear. ENT: Auricles normal inspection, hearing grossly normal, nares patent, oropharynx clear without exudates. Moist mucosa. NECK: Normal ROM, supple, no lymphadenopathy, JVD, or masses. LUNGS: Breath sounds equal, clear to auscultation bilaterally. No wheezes, and no crackles. HEART: Irregularly irregular, tachycardic. Normal S1 and S2, no murmurs, rubs or gallops. ABDOMEN: Soft, nontender, normoactive bowel sounds. No guarding, no rebound. No masses. EXTREMITIES: 2+ pitting edema, bilaterally. Normal range of motion. No clubbing or cyanosis. No cords, erythema, or tenderness. NEUROLOGICAL: Cranial nerves II through XII intact. Normal speech, normal gait. SKIN: Warm, dry, normal turgor, no rashes or lesions noted. <Elda Syed - Last Filed: 05/05/16 19:48> - Vital Signs Last Vital Signs Temp Pulse Resp BP Pulse Ox 97.9 F 129 H 23 153/126 98 05/05/16 17:48 05/05/16 17:48 05/05/16 17:48 05/05/16 17:48 05/05/16 18:00 <Henry Zhang - Last Filed: 05/05/16 20:26> Heart Score/ECG Review - History History: Slightly suspicious - Electrocardiogram EKG: Non specific repolarization disturbance - Age Age: 45-65 - Risk Factors Based on the list above the patient has:: >/=3 risk factors or Hx atherosclerotic disease #1 ECG reviewed & interpreted by me at: 18:00 05/05/16 19:14 Atrial fibrillation 128, indeterminate axis, pulmonary disease pattern, nonspecific ST and T wave pattern, no WENDY/STD, QTC 578 msec <Henry Zhang - Last Filed: 05/05/16 20:26> ED Treatment Course - LABORATORY CBC & Chemistry Diagram: 05/05/16 16:42 05/05/16 16:42 - ADDITIONAL ORDERS Additional order review: 05/05/16 16:42 RBC 4.64 MCV 87.0 MCHC 33.4 RDW 17.9 H MPV 7.8 Neutrophils % 78.0 Lymphocytes % 10.8 Monocytes % 7.6 Eosinophils % 2.7 Basophils % 0.9 - Medications Given in the ED: ED Medications Discontinued Medications Generic Name Dose Route Start Last Admin Trade Name Freq PRN Reason Stop Dose Admin Aspirin 324 mg 05/05/16 18:27 05/05/16 18:48 Asa - PO 05/05/16 18:28 324 mg ONCE ONE Administration Metoprolol Tartrate 5 mg 05/05/16 19:09 05/05/16 19:15 Lopressor Injection - IVPUSH 05/05/16 19:10 5 mg ONCE ONE Administration <Elda Syed - Last Filed: 05/05/16 19:48> - LABORATORY CBC & Chemistry Diagram: 05/05/16 16:42 05/05/16 16:42 - ADDITIONAL ORDERS Additional order review: 05/05/16 16:42 RBC 4.64 MCV 87.0 MCHC 33.4 RDW 17.9 H MPV 7.8 Neutrophils % 78.0 Lymphocytes % 10.8 Monocytes % 7.6 Eosinophils % 2.7 Basophils % 0.9 - RADIOLOGY Radiology Studies Ordered: Category Date Time Status CHEST X-RAY PORTABLE* [RAD] Stat Radiology 05/05/16 18:11 Completed - Medications Given in the ED: ED Medications Discontinued Medications Generic Name Dose Route Start Last Admin Trade Name Freq PRN Reason Stop Dose Admin Aspirin 324 mg 05/05/16 18:27 03/31/17 18:48 Asa - PO 05/05/16 18:28 324 mg ONCE ONE Administration <Henry Zhang - Last Filed: 05/05/16 20:26> Medical Decision Making - Medical Decision Making 05/05/16 19:24 EXAM: RAD/CHEST X-PORTABLE Reviewed By: Dr. Michael Lim IMPRESSION: Moderate cardiomegaly without evidence of acute lung disease. <Elda Syed - Last Filed: 05/05/16 19:48> - Critical Care Time Total Critical Care Time (minutes): 35 Critical Care Statement: The care of this patient involved high complexity decision making to prevent further life threatening deterioration of the patient 's condition and/or to evalute & treat vital organ system(s) failure or risk of failure. - Medical Decision Making 05/05/16 19:15 A portion of this note was documented by scribe services under my direction. I have reviewed the details of the note, within reason, and agree with the documentation with the following case summary and management plan written by me. Patient treated in the ED. Nursing notes are reviewed and incorporated into the medical decision-making. Vital signs reviewed. Peripheral IV access obtained by the nurse, laboratory studies are drawn and sent, reviewed and interpreted by myself. Vital Signs Temp Pulse Resp BP Pulse Ox 97.9 F 129 H 23 153/126 98 05/05/16 17:48 05/05/16 17:48 05/05/16 17:48 05/05/16 17:48 05/05/16 18:00 55 year old male with pmh of cirrhoisis, DM, CHF, afib on eliquis, CAD, cardiomegaly, diverticulitis, CRI, HTN, HLD presents with intermittent sharp midsternal chest pain today that would last several minutes. Noticed in the last 3 days, that he was developing increasingly lower extremity edema, worsening dyspnea on exertion despite taking 60 mg lasix daily. States that he has been urinating less. Denies recent illnesses, fevers, chills. Thinks it may be fluid overload. Differential includes acute on chronic renal failure, CHF, ACS, metabolic disarray. Will obtain chest xray, labs, including troponin and BNP. Give aspirin. Admit the patient for further workup. Patient follows up with Dr. Ho. 05/05/16 20:24 CBC, BMP 05/05/16 16:42 05/05/16 16:42 CMP Sodium 138 mmol/L (136-145) 05/05/16 16:42 Potassium 3.6 mmol/L (3.5-5.1) 05/05/16 16:42 Chloride 99 mmol/L (98-107) 05/05/16 16:42 Carbon Dioxide 25 mmol/L (21-32) 05/05/16 16:42 Anion Gap 14 (8-16) 05/05/16 16:42 BUN 33 mg/dL (7-18) H D 05/05/16 16:42 Creatinine 2.5 mg/dL (0.7-1.3) H D 05/05/16 16:42 Creat Clearance w eGFR 27.15 (>60) 05/05/16 16:42 Random Glucose 249 mg/dL (74-106) H D 05/05/16 16:42 Calcium 8.2 mg/dL (8.5-10.1) L 05/05/16 16:42 Magnesium 2.2 mg/dL (1.8-2.4) 05/05/16 16:42 Total Bilirubin 1.6 mg/dL (0.2-1.0) H D 05/05/16 16:42 AST 26 U/L (15-37) D 05/05/16 16:42 ALT 15 U/L (12-78) D 05/05/16 16:42 Alkaline Phosphatase 205 U/L (45-117) H D 05/05/16 16:42 Creatine Kinase 278 IU/L (39-308) D 05/05/16 16:42 Creatine Kinase Index 2.9 % (0.0-5.0) 05/05/16 16:42 CK-MB (CK-2) 8.046 ng/ml (0.5-3.6) H 05/05/16 16:42 CK-MB (CK-2) Rel Index Cancelled 05/05/16 16:42 Troponin I 0.10 ng/ml (0.00-0.05) H 05/05/16 16:42 B-Natriuretic Peptide 35333.10 pg/ml (5-125) H 05/05/16 18:26 Total Protein 6.9 g/dl (6.4-8.2) 05/05/16 16:42 Albumin 2.6 g/dl (3.4-5.0) L 05/05/16 16:42 TSH 2.85 uIU/ml (0.358-3.74) D 05/05/16 16:42 Trop elevation (is likely secondary to CRI and elevated BNP). 60 mg IV lasix ordered. Aspirin given. Pt's HR improved with IV lopressor. Case discussed with Dr. Silveira, she accepts to telemetry admission. <Henry Zhang - Last Filed: 05/05/16 20:26> *DC/Admit/Observation/Transfer - Attestations Scribe Attestion: 05/05/16 19:22 Documentation prepared by Elda Syed, acting as medical attendant for Henry Zhang MD. <Elda Syed - Last Filed: 05/05/16 19:48> - Discharge Dispostion Admit: Yes <Henry Zhang - Last Filed: 05/05/16 20:26> Diagnosis at time of Disposition: atrial fibrillation CHF (congestive heart failure) Qualifiers: Congestive heart failure type: unspecified congestive heart failure type Congestive heart failure chronicity: unspecified congestive heart failure chronicity Qualified Code(s): I50.9 - Heart failure, unspecified - Discharge Dispostion Condition at time of disposition: Fair - Referrals Referrals: Mika Ho MD [Primary Care Provider] -
[2016-05-05] MEDS ORDERED: METOPROLOL TARTRATE 5 MG/5 ML VIAL IVPUSH ONE ×2 (19:09→19:55)
[2016-05-05] MEDS ORDERED: METOPROLOL TARTRATE 5 MG/5 ML VIAL ONE ×2 (19:13→20:25)
[2016-05-05 19:14] LABS: ALBUMIN 2.6 g/dl (3.4-5.0); CALCIUM 8.2 mg/dL (8.5-10.1); CREATININE 2.5 mg/dL (0.7-1.3); MAGNESIUM 2.2 mg/dL (1.8-2.4)
[2016-05-05 19:23] LABS: BILIRUBIN,TOTAL 1.6 mg/dL (0.2-1.0); THYROID STIMULATING HORMONE 2.85 uIU/ml (0.358-3.74); TOT PROT 6.9 g/dl (6.4-8.2); TROPONIN I 0.1 ng/ml (0.00-0.05)
[2016-05-05] MEDS ORDERED: FUROSEMIDE 40 MG/4 ML INJECTABLE VIAL IVPB ONE (19:54)
[2016-05-05] MEDS ORDERED: FUROSEMIDE 40 MG/4 ML INJECTABLE VIAL ONE (20:25)
[2016-05-05] MEDS: METOPROLOL SUCCINATE 100 MG TAB.SR.24H (FP) PO SCH (22:46)
[2016-05-05] MEDS: APIXABAN 5 MG TABLET PO SCH (22:46)
[2016-05-05] MEDS: ATORVASTATIN CA 10 MG TABLET (FP) PO SCH (22:46)
[2016-05-05] MEDS: INSULIN DETEMIR 100 UNITS/ML MDV SQ SCH (22:47)
[2016-05-05] MEDS: ISOSORBIDE MONONITRATE 60 MG TAB.SR.24H (FP) PO SCH (22:47)
[2016-05-05] MEDS: hydrALAZINE HCL 50 MG TABLET (FP) PO SCH (22:47)
--- NOTE | 2016-05-05 22:50 | HP ---
CHIEF COMPLAINT: SOB, Chest Pain PCP: Teletype Installer: Dr. Ho HISTORY OF PRESENT ILLNESS: This is a 55 y/o male with a past medical history of Afib (on Eliquis), CAD, CHF , CVA (05/20 Ischemic, 06/19 L- Occipital Hemorrhage), HTN, HLD, IDDM, CKD, Cirrhosis, Diverticulitis. Who presents to the ED with sharp intermittent midsternal chest pain x today, B/L lower extremity edema, erythema, and SOB x 3 days. Patient reports noting a decrease in his urine flow, increasing his Lasix dosage. Patient states" my left lower leg is usually swollen, but both legs hurt when I walk" Patient denies fever, cough, dizziness, AP, N/V/D, constipation. ER course was notable for: (1) BNP 22551 (2) Cr 2.5 (3) EKG Afib with RVR 129 Lopressor 5mg x2 rate control 100's (4) Trop I 0.10 Recent Travel: None PAST MEDICAL HISTORY: See HPI PAST SURGICAL HISTORY: Social History: Smoking: Never Alcohol: Socially Drugs: Denies Lives Independently Family History: Allergies ciprofloxacin [From Cipro] Allergy (Severe, Verified 05/05/16 17:48) Rash ciprofloxacin HCl [From Cipro] Allergy (Severe, Verified 05/05/16 17:48) Rash HOME MEDICATIONS: Home Medications Medication Instructions Recorded Insulin (Novolog) [Novolog Flexpen 4 units SQ AC #1 pen 09/07/14 -] Atorvastatin Ca [Lipitor] 10 mg PO HS #30 tablet 02/26/15 Hydralazine HCl [Apresoline -] 100 mg PO TID #90 tablet 02/26/15 Insulin (Levemir) [Levemir Vial] 28 units SQ HS #7 ml 02/26/15 Isosorbide Mononitrate [Imdur -] 60 mg PO BID #60 tab.sr.24h 02/26/15 Metoprolol Succinate [Toprol XL -] 150 mg PO BID #60 tab.sr.24h 02/26/15 Amlodipine Besylate [Norvasc -] 5 mg PO DAILY #30 tablet 10/29/15 Apixaban [Eliquis -] 5 mg PO BID #60 tablet 10/29/15 Torsemide [Demadex -] 60 mg PO DAILY #90 tablet 12/20/15 Tamsulosin HCl [Flomax -] 0.4 mg PO DAILY@0830 cap.er.24h 04/02/16 REVIEW OF SYSTEMS CONSTITUTIONAL: Absent: fever, chills, diaphoresis, generalized weakness, malaise, loss of appetite, weight change HEENT: Absent: rhinorrhea, nasal congestion, throat pain, throat swelling, difficulty swallowing, mouth swelling, ear pain, eye pain, visual changes CARDIOVASCULAR: chest pain, peripheral edema Absent: syncope, palpitations, irregular heart rate, lightheadedness RESPIRATORY: shortness of breath Absent: cough, dyspnea with exertion, orthopnea, wheezing, stridor, hemoptysis GASTROINTESTINAL: Absent: abdominal pain, abdominal distension, nausea, vomiting, diarrhea, constipation, melena, hematochezia GENITOURINARY: Absent: dysuria, frequency, urgency, hesitancy, hematuria, flank pain, genital pain MUSCULOSKELETAL: Absent: myalgia, arthralgia, joint swelling, back pain, neck pain SKIN: Absent: rash, itching, pallor HEMATOLOGIC/IMMUNOLOGIC: Absent: easy bleeding, easy bruising, lymphadenopathy, frequent infections ENDOCRINE: Absent: unexplained weight gain, unexplained weight loss, heat intolerance, cold intolerance NEUROLOGIC: Absent: headache, focal weakness or paresthesias, dizziness, unsteady gait, seizure, mental status changes, bladder or bowel incontinence PSYCHIATRIC: Absent: anxiety, depression, suicidal or homicidal ideation, hallucinations. PHYSICAL EXAMINATION Vital Signs - 24 hr 05/05/16 05/05/16 05/05/16 20:32 20:33 21:17 Temperature 98.0 F Pulse Rate 118 H Pulse Rate [ 118 H 107 H Apical] Respiratory 20 20 Rate Blood Pressure 162/118 Blood Pressure 166/115 138/87 [Left Arm] O2 Sat by Pulse 100 100 Oximetry (%) GENERAL: Obese, Awake, alert, and fully oriented, in no acute distress. HEAD: Normal with no signs of trauma. EYES: Pupils equal, round and reactive to light, extraocular movements intact, sclera anicteric, conjunctiva clear. No lid lag. EARS, NOSE, THROAT: Ears normal, nares patent, oropharynx clear without exudates. Moist mucous membranes. NECK: Normal range of motion, supple without lymphadenopathy, JVD, or masses. LUNGS: Breath sounds equal, clear to auscultation bilaterally. No wheezes, and no crackles. No accessory muscle use. HEART: Irregular rate and rhythm, normal S1 and S2 without murmur, rub or gallop. ABDOMEN: Soft, nontender, not distended, normoactive bowel sounds, no guarding, no rebound, no masses. No hepatomegaly or splenomegaly. MUSCULOSKELETAL: Normal range of motion at all joints. No bony deformities or tenderness. No CVA tenderness. UPPER EXTREMITIES: 2+ pulses, warm, well-perfused. No cyanosis. No clubbing. No peripheral edema. LOWER EXTREMITIES: 2+ pulses, warm, well-perfused. No calf tenderness. R > L +2 pitting peripheral edema. NEUROLOGICAL: Cranial nerves II-XII intact. Normal speech. Normal gait. PSYCHIATRIC: Cooperative. Good eye contact. Appropriate mood and affect. SKIN: Warm, dry, normal turgor, no rashes. +erythema venous stasis ulcers bilateral LE, +erythematous, scabbed wound to left knee noted, normal capillary refill. Laboratory Results - last 24 hr 05/05/16 05/05/16 05/05/16 00:30 00:30 16:42 WBC 14.2 H RBC 4.64 Hgb 13.5 Hct 40.4 MCV 87.0 MCHC 33.4 RDW 17.9 H Plt Count 272 D MPV 7.8 Neutrophils % 78.0 Lymphocytes % 10.8 Monocytes % 7.6 Eosinophils % 2.7 Basophils % 0.9 INR PTT (Actin FS) Sodium Potassium Chloride Carbon Dioxide Anion Gap BUN Creatinine Creat Clearance w eGFR POC Glucometer Random Glucose Calcium Magnesium Total Bilirubin AST ALT Alkaline Phosphatase Creatine Kinase 247 D Creatine Kinase Index 2.8 CK-MB (CK-2) 6.838 H CK-MB (CK-2) Rel Index Cancelled Troponin I 0.11 H B-Natriuretic Peptide Total Protein Albumin TSH 05/05/16 05/05/16 05/05/16 16:42 16:42 16:42 WBC RBC Hgb Hct MCV MCHC RDW Plt Count MPV Neutrophils % Lymphocytes % Monocytes % Eosinophils % Basophils % INR 1.33 H PTT (Actin FS) 29.9 Sodium 138 Potassium 3.6 Chloride 99 Carbon Dioxide 25 Anion Gap 14 BUN 33 H D Creatinine 2.5 H D Creat Clearance w eGFR 27.15 POC Glucometer Random Glucose 249 H D Calcium 8.2 L Magnesium 2.2 Total Bilirubin 1.6 H D AST 26 D ALT 15 D Alkaline Phosphatase 205 H D Creatine Kinase 278 Creatine Kinase Index 2.9 CK-MB (CK-2) 8.046 H CK-MB (CK-2) Rel Index Cancelled Troponin I 0.10 H B-Natriuretic Peptide Total Protein 6.9 Albumin 2.6 L TSH 2.85 D 05/05/16 05/05/16 18:26 22:30 WBC RBC Hgb Hct MCV MCHC RDW Plt Count MPV Neutrophils % Lymphocytes % Monocytes % Eosinophils % Basophils % INR PTT (Actin FS) Sodium Potassium Chloride Carbon Dioxide Anion Gap BUN Creatinine Creat Clearance w eGFR POC Glucometer 216 Random Glucose Calcium Magnesium Total Bilirubin AST ALT Alkaline Phosphatase Creatine Kinase Creatine Kinase Index CK-MB (CK-2) CK-MB (CK-2) Rel Index Troponin I B-Natriuretic Peptide 73372.10 H Total Protein Albumin TSH Laboratory Results - last 24 hr 05/05/16 22:30 POC Glucometer 216 ASSESSMENT/PLAN: 55 y/o male with a PMHx of: HTN, HLD, IDDM, Afib (on Eliquis) CAD, CHF, CVA ( Ischemic, 5/ L Occipital Hemorrhage, Diverticulitis, CKD, Cirrhosis. Admitted to Telemetry for Afib with RVR, Acute on Chronic HF for further evaluation of their emergent condition. Problem List - Problem (1) atrial fibrillation Assessment/Plan: - With RVR - Lopressor IV given in ED- rate 100-110s - Tele monitoring - Appreciate Cardiology Consult - [id number] - Continue Eliquis - BB (2) Acute exacerbation of CHF (congestive heart failure) Assessment/Plan: - Likely secondary to Renal Insufficiency - Tele monitoring - Chest Xray- moderate CM, without acute lung disease - Continue home meds - Strict INOs - Daily Weights - Appreciate Cardiology Consult - Last Echo (02/16/16)- LV grossly normal, LVSF mod-severely reduced, LA, RA mod dilated, trace-mild MR, mild-mod TR, RVSP elevated 30-40mmHg, Mod aortic root dilatation Code(s): I50.9 - HEART FAILURE, UNSPECIFIED (3) Systolic and diastolic CHF, acute on chronic Assessment/Plan: - See Above Code(s): I50.43 - ACUTE ON CHRONIC COMBINED SYSTOLIC AND DIASTOLIC HRT FAIL (4) Dyspnea on exertion Assessment/Plan: - See Above Code(s): R06.09 - OTHER FORMS OF DYSPNEA (5) Acute on chronic renal failure Assessment/Plan: - Cr at baseline 2.5-2.6 - Monitor BMP - Renal US- 03/2016 no hydronephrosis, no obstruction - Bladder scan in am - Consider nephrology consult if condition worsens - Avoid nephrotoxic drugs Code(s): N17.9 - ACUTE KIDNEY FAILURE, UNSPECIFIED N18.9 - CHRONIC KIDNEY DISEASE, UNSPECIFIED (6) Lower extremity edema Assessment/Plan: - Likely secondary to HF vs CKD vs DVT - Wells Score 2 - Duplex of B/L r/o DVT in am Code(s): R60.0 - LOCALIZED EDEMA (7) CAD (coronary artery disease) Assessment/Plan: - Continue meds - EKG reviewed - Cardiac Enzyme neg x1 - Serial enzymes - Appreciate Cardiology Consult Code(s): I25.10 - ATHSCL HEART DISEASE OF [place] CORONARY ARTERY W/O ANG PCTRS (8) Diabetes mellitus Assessment/Plan: - Controlled - BGMs - ISS - 1800 ADA Diet - HgbA1C in am Code(s): E11.9 - TYPE 2 DIABETES MELLITUS WITHOUT COMPLICATIONS (9) Hypertension Assessment/Plan: - Monitor BP - Continue home meds - Low Na Diet Code(s): I10 - ESSENTIAL (PRIMARY) HYPERTENSION (10) DVT prophylaxis Assessment/Plan: - OOB - Continue Eliquis Code(s): [id number] - Visit type - Emergency Visit Emergency Visit: Yes ED Registration Date: 05/05/16 Care time: The patient presented to the Emergency Department on the above date and was hospitalized for further evaluation of their emergent condition. - New Patient This patient is new to me today: Yes Date on this admission: 05/05/16 - Critical Care Critical Care patient: No
[2016-05-05] MEDS ORDERED: TETANUS AND DIPHTHERIA TOXOID 0.5 ML DISP.SYRIN IM ONE (23:29)
[2016-05-06 01:17] LABS: TROPONIN I 0.11 ng/ml (0.00-0.05)
[2016-05-06 04:25] VITALS: BMI 43.2
[2016-05-06] MEDS: hydrALAZINE HCL 50 MG TABLET (FP) PO SCH ×3 (06:20→22:15)
[2016-05-06] MEDS: INSULIN (NOVOLOG) ASPART 100 UNITS/ML 10ML VIAL SQ SCH ×3 (06:23→16:33)
[2016-05-06 08:06] LABS: BASOPHIL 0.8 % (0-2.0); EOSINOPHIL 3.7 % (0-4.5); MCH 28.6 pg (25.7-33.7); MCHC 32.3 g/dl (32.0-35.9); MEAN CELL VOLUME 88.5 fl (80-96); MEAN PLT VOLUME 8.1 fl (7.5-11.1); NEUTROPHILS 72.9 % (42.8-82.8); PLATELET COUNT 252 K/MM3 (134-434); RDW 18.4 % (11.9-15.9); WHITE BLOOD COUNT 13.9 K/mm3 (4.0-10.0)
[2016-05-06] MEDS: TAMSULOSIN HCL 0.4 MG CAP.ER.24H (FP) PO SCH (08:38)
[2016-05-06 09:00] LABS: CALCIUM 8.3 mg/dL (8.5-10.1); MAGNESIUM 2.2 mg/dL (1.8-2.4)
[2016-05-06] MEDS: ISOSORBIDE MONONITRATE 60 MG TAB.SR.24H (FP) PO SCH ×2 (09:00→22:16)
[2016-05-06] MEDS: APIXABAN 5 MG TABLET PO SCH ×2 (09:00→22:16)
[2016-05-06] MEDS: amLODIPine BESYLATE 5 MG TABLET (FP) PO SCH (09:00)
[2016-05-06] MEDS: METOPROLOL SUCCINATE 100 MG TAB.SR.24H (FP) PO SCH ×2 (09:00→23:54)
[2016-05-06 09:06] LABS: CREATININE 2.7 mg/dL (0.7-1.3); PHOSPHOROUS 4.1 mg/dL (2.5-4.9); TROPONIN I 0.1 ng/ml (0.00-0.05)
[2016-05-06] MEDS ORDERED: TORSEMIDE 20 MG TABLET (FP) PO SCH (10:00)
--- NOTE | 2016-05-06 10:07 | CON.CARD ---
Cardiology Consult (text) - Consultation Consultation Note: CC: sob, le edema HPI: 55 yo with h/o afib with prior ?embolic CVA 05/2014 ([facility]) right visual field cut, syncope 09/19 with ICH at that time vs other entity on MRI and recurrent syncope 12/2015 (unclear etiology), Non-ischemic cardiomyopathy dx 2013 at [facility], HTN, HPL, Rt carotid stenosis, IDDM, RLE cellulitis s/p debridement, MSSA bacteremia 10/2015, DAMIAN not on home cpap, ckd, who presents with sob, le edema. Frequent admits for chf, has poor outpt f/u so frequently re -accumulate volume w/o contacting outpt cardio. Has been taking torsemide 60 qd but still developed le edema and sob/jacome. No cp, palps, dizzy, loc, pnd, orthopnea. Sees dr cohen for cardio but poor f/u, compliance. Past Medical History: per hpi Past Surgical History: per hpi Social hx: Former smoker, no etoh or illicits Family Disease History: Heart Disease: Mother (in 60's) ros: per hpi; no fever, nvd, cough, nasal congestion, river, vision changes, muscle pain, gib, hematuria, dysuria meds: Home Medications Medication Instructions Recorded Insulin (Novolog) [Novolog Flexpen 4 units SQ AC #1 pen 09/07/14 -] Atorvastatin Ca [Lipitor] 10 mg PO HS #30 tablet 02/26/15 Hydralazine HCl [Apresoline -] 100 mg PO TID #90 tablet 02/26/15 Insulin (Levemir) [Levemir Vial] 28 units SQ HS #7 ml 02/26/15 Isosorbide Mononitrate [Imdur -] 60 mg PO BID #60 tab.sr.24h 02/26/15 Metoprolol Succinate [Toprol XL -] 150 mg PO BID #60 tab.sr.24h 02/26/15 Amlodipine Besylate [Norvasc -] 5 mg PO DAILY #30 tablet 10/29/15 Apixaban [Eliquis -] 5 mg PO BID #60 tablet 10/29/15 Torsemide [Demadex -] 60 mg PO DAILY #90 tablet 12/20/15 Tamsulosin HCl [Flomax -] 0.4 mg PO DAILY@0830 cap.er.24h 02/26/17 pe: Vital Signs Period Temp Pulse Resp BP Sys/Perez Pulse Ox Last 24 Hr 97.5 F-99.0 F 98-129 20-23 114-166/39-126 95-100 Constitutional: Yes: No Distress, Obese Eyes: No: Sclera Icterus HENT: No: Nasal Congestion Respiratory: cta bl nl eff No: Accessory Muscle Use Gastrointestinal: Yes: Normal Bowel Sounds. obese No: Distention, Hepatomegaly, Palpable Mass, tenderness Cardiovascular: Yes: Irregular Rate and Rhythm JVD: tds Carotid Bruit: No PMI: Non-Displaced Heart Sounds: Yes: nl, S1, S2. No: Gallop Murmur: No: Systolic Murmur, Diastolic Murmur Edema: 1+ LE bl, erythema of shins bl Peripheral Pulses: pos dp pt no carotid bruits Integumentary: No: Jaundice diaphoresis Neurological: Yes: Alert, Oriented (x3) Psychiatric: No: Agitated Laboratory Last Values WBC 13.9 K/mm3 (4.0-10.0) H 05/06/16 06:07 RBC 4.41 M/mm3 (4.00-5.60) 05/06/16 06:07 Hgb 12.6 GM/dL (11.7-16.9) 05/06/16 06:07 Hct 39.0 % (35.4-49) 05/06/16 06:07 MCV 88.5 fl (80-96) 05/06/16 06:07 MCHC 32.3 g/dl (32.0-35.9) 05/06/16 06:07 RDW 18.4 % (11.9-15.9) H 05/06/16 06:07 Plt Count 252 K/MM3 (134-434) 05/06/16 06:07 MPV 8.1 fl (7.5-11.1) 05/06/16 06:07 Neutrophils % 72.9 % (42.8-82.8) 05/06/16 06:07 Lymphocytes % 14.1 % (8-40) D 05/06/16 06:07 Monocytes % 8.5 % (3.8-10.2) 05/06/16 06:07 Eosinophils % 3.7 % (0-4.5) 05/06/16 06:07 Basophils % 0.8 % (0-2.0) 05/06/16 06:07 INR 1.33 (0.82-1.09) H 05/05/16 16:42 PTT (Actin FS) 29.9 SECONDS (26.9-34.4) 05/05/16 16:42 Sodium 140 mmol/L (136-145) 05/06/16 06:07 Potassium 3.3 mmol/L (3.5-5.1) L 05/06/16 06:07 Chloride 100 mmol/L (98-107) 05/06/16 06:07 Carbon Dioxide 27 mmol/L (21-32) 05/06/16 06:07 Anion Gap 13 (8-16) 05/06/16 06:07 BUN 40 mg/dL (7-18) H D 05/06/16 06:07 Creatinine 2.7 mg/dL (0.7-1.3) H 05/06/16 06:07 Creat Clearance w eGFR 27.15 (>60) 05/05/16 16:42 POC Glucometer 134 UNITS (()) 05/06/16 05:21 Random Glucose 125 mg/dL (74-106) H D 05/06/16 06:07 Calcium 8.3 mg/dL (8.5-10.1) L 05/06/16 06:07 Phosphorus 4.1 mg/dL (2.5-4.9) D 05/06/16 06:07 Magnesium 2.2 mg/dL (1.8-2.4) 05/06/16 06:07 Total Bilirubin 1.6 mg/dL (0.2-1.0) H D 05/05/16 16:42 AST 26 U/L (15-37) D 05/05/16 16:42 ALT 15 U/L (12-78) D 05/05/16 16:42 Alkaline Phosphatase 205 U/L (45-117) H D 05/05/16 16:42 Creatine Kinase 228 IU/L (39-308) 05/06/16 06:07 Creatine Kinase Index 2.8 % (0.0-5.0) 05/05/16 23:55 CK-MB (CK-2) 6.838 ng/ml (0.5-3.6) H 05/05/16 23:55 CK-MB (CK-2) Rel Index 2.6 % (0.0-5.0) 05/06/16 06:07 Troponin I 0.10 ng/ml (0.00-0.05) H 05/06/16 06:07 B-Natriuretic Peptide 73327.10 pg/ml (5-125) H 05/05/16 18:26 Total Protein 6.9 g/dl (6.4-8.2) 05/05/16 16:42 Albumin 2.6 g/dl (3.4-5.0) L 05/05/16 16:42 TSH 2.85 uIU/ml (0.358-3.74) D 05/05/16 16:42 EKG 05/05/16: afib, vr 128, nonspecific tw changes, no st changes, no sig change prior CXR: no chf Echo 10/2015: Moderately decreased LV function (global). Nl RV size/fn. 1+ MR. mild-mod TR. mild ao dilation. Trivial effusion. cath 06/2013: 60-70 rpl1, 80-90 d1, subtotal om1 MIBI 08/2014 (pers): no STs; no ischemia seen; predominantly fixed medium-sized inferior/basal inferolat/apico-inferior defect c/w diaphragm attenuation; EF 46% tele: afib, rate controlled a/p: 55 yo with h/o afib with prior ?embolic CVA 05/2014 ([facility]) right visual field cut, syncope 09/19 with ICH at that time vs other entity on MRI and recurrent syncope 12/2015 (unclear etiology), Non-ischemic cardiomyopathy dx 2013 at [facility], HTN, HPL, Rt carotid stenosis, IDDM, RLE cellulitis s/p debridement, MSSA bacteremia 10/2015, DAMIAN not on home cpap, ckd, who presents with sob, le edema. sob, le edema, acute systolic HF exacerbation, NICM: -Frequent admits for chf, has poor outpt f/u so frequently re-accumulates volume w/o contacting outpt cardio. Was on torsemide 60 qd at home. -dry wt on dc usually around 340 lbs -currently wt above this, with some worse le edema as well, no signs pulm edema -will start lasix 80 iv bid which diureses him well in past, daily wts/chemistry - cont home LV dysfxn regimen: bb, imdur/hydralazine (not on kaylan/arb 2/2 ckd) Afib, h/o ischemic cva 05/20, - hemorrhagic CVA 06/19 (Imaging read as ICH or mass lesion): - case discussed with neuro in detail on prior admissions. Contrast enhancing lesion seen 06/19 and the prior heme on MRI were in same location and was thought to be most likely 2/2 post CVA hemorrhagic conversion (i.e. without hi risk for recurrent ICH). Less likely low-grade glioma, which would have very low risk of bleeding if AC resumed--hence the recs at that time were for usual AC considerations for his afib, no special precautions (pt failed repeatedly to f/u with neuro as outpatient, and then worsening renal fxn made him hi risk for morena when here last time). -warfarin changed to eliquis on past admits due to pt's repeated refusal to f/u with cardiology or have reliable INRs and make rec'd coumadin dose change, with worrisome CHADS-VASC 6 = estimated risk 9-10%/year, and hence concern he will stroke again on warfarin. - now on eliquis - Con't home regimen toprol 150 mg bid, rate controlled on tele cad: -managed medically, no angina/ACS/ischemia since -Here with borderline elevation in troponin, flat trend, consistent with prior baseline values. no signs acs, instead likely due to CHF and CKD. -continue home statin, bb, imdur, hydralazine -con't to defer ASA as pt with stable CAD in past and also on AC R carotid stenosis: -ADRIENNE with PSV in high 200s cm/sec here, suspicious for >70% stenosis per radiology report -vascular surgery c/s on prior admit felt stenosis is at MOST 70% (deferred further imaging with contrast due to low GFR). Recommended deferring CEA unless imaging suggested >80% stenosis, or if he developed symptoms/acute cerebrovascular event. Ao dilation - Con't bb. Routine outpatient surveillance CKD: - baseline cr 2.5-2.6 - currently near baseline, monitor with iv lasix
[2016-05-06] MEDS ORDERED: POTASSIUM CHLORIDE TABS 20 MEQ TABLET.ER (FP) PO ONE ×2 (12:09→21:30)
--- NOTE | 2016-05-06 13:02 | PN ---
Progress Note (short form) - Note Progress Note: Subjective: The patient was seen and examined at the bedside, he reports his breathing has improved. He states he has had b/l lower extremity erythema for ~ 1 week. He also reports b/l lower extremity pain, awaiting b/l extremity doppler. Leukocytosis, afebrile. F/u ID consult for possible cellulitis Current Medications Generic Name Dose Route Start Last Admin Trade Name Freq PRN Reason Stop Dose Admin Amlodipine Besylate 5 mg 05/06/16 10:00 05/06/16 09:00 Norvasc - PO 5 mg DAILY ANURADHA Administration Apixaban 5 mg 05/05/16 22:00 05/06/16 09:00 Eliquis - PO 5 mg BID ANURADHA Administration Atorvastatin Calcium 10 mg 05/05/16 22:00 05/05/16 22:46 Lipitor - PO 10 mg HS ANURADHA Administration Furosemide 80 mg 05/06/16 14:00 Lasix Injection - IVPUSH BID@0600,1400 ANURADHA Hydralazine HCl 100 mg 05/05/16 22:00 05/06/16 06:20 Apresoline - PO 100 mg TID ANURADHA Administration Insulin Aspart 4 units 05/06/16 07:00 05/06/16 11:25 Novolog Vial SQ 4 units TIDAC ANURADHA Administration Insulin Detemir 28 units 05/05/16 22:00 05/05/16 22:47 Levemir Vial SQ 28 units HS ANURADHA Administration Isosorbide Mononitrate 60 mg 05/05/16 22:00 05/06/16 09:00 Imdur - PO 60 mg BID ANURADHA Administration Metoprolol Succinate 150 mg 05/05/16 22:00 05/06/16 09:00 Toprol Xl - PO 150 mg BID ANURADHA Administration Tamsulosin HCl 0.4 mg 05/06/16 08:30 05/06/16 08:38 Flomax - PO 0.4 mg DAILY@0830 ANURADHA Administration Objective: Vital Signs Period Temp Pulse Resp BP Sys/Perez Pulse Ox Last 24 Hr 97.5 F-99.0 F 98-129 20-23 114-166/39-126 95-100 Physical Exam: General: Morbidly obese Lungs: CTA bilaterally Heart: Irregular rate and rhythm Abd: Soft, non-tender, non-distended. Normoactive bowel sounds Ext: 1+ B/l lower extremity edema, b/l [place] extremity erythema, mid calf to ankles. Left knee abrasion Neuro: CN 2-12 intact CBCD WBC 13.9 K/mm3 (4.0-10.0) H 05/06/16 06:07 RBC 4.41 M/mm3 (4.00-5.60) 05/06/16 06:07 Hgb 12.6 GM/dL (11.7-16.9) 05/06/16 06:07 Hct 39.0 % (35.4-49) 05/06/16 06:07 MCV 88.5 fl (80-96) 05/06/16 06:07 MCHC 32.3 g/dl (32.0-35.9) 05/06/16 06:07 RDW 18.4 % (11.9-15.9) H 05/06/16 06:07 Plt Count 252 K/MM3 (134-434) 05/06/16 06:07 MPV 8.1 fl (7.5-11.1) 05/06/16 06:07 CMP Sodium 140 mmol/L (136-145) 05/06/16 06:07 Potassium 3.3 mmol/L (3.5-5.1) L 05/06/16 06:07 Chloride 100 mmol/L (98-107) 05/06/16 06:07 Carbon Dioxide 27 mmol/L (21-32) 05/06/16 06:07 Anion Gap 13 (8-16) 05/06/16 06:07 BUN 40 mg/dL (7-18) H D 05/06/16 06:07 Creatinine 2.7 mg/dL (0.7-1.3) H 05/06/16 06:07 Creat Clearance w eGFR 27.15 (>60) 05/05/16 16:42 Random Glucose 125 mg/dL (74-106) H D 05/06/16 06:07 Calcium 8.3 mg/dL (8.5-10.1) L 05/06/16 06:07 Total Bilirubin 1.6 mg/dL (0.2-1.0) H D 05/05/16 16:42 AST 26 U/L (15-37) D 05/05/16 16:42 ALT 15 U/L (12-78) D 05/05/16 16:42 Alkaline Phosphatase 205 U/L (45-117) H D 05/05/16 16:42 Total Protein 6.9 g/dl (6.4-8.2) 05/05/16 16:42 Albumin 2.6 g/dl (3.4-5.0) L 05/05/16 16:42 CARDIAC ENZYMES Creatine Kinase 228 IU/L (39-308) 05/06/16 06:07 Troponin I 0.10 ng/ml (0.00-0.05) H 05/06/16 06:07 Assessment: This is a 55 year old male with PMHx of A.fib (on eliquis), CAD, CHF , 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 Plan: 1) Cardiology: chest pain - Borderline elevation in troponin, trending down - No current signs of ACS - Continue Lipitor - Continue Norvasc - Continue Imdur - Continue hydralazine - Appreciate cardiology consult Acute systolic heart failure exacerbation - worsening b/l lower extremity edema - Started on Lasix 80mg IVP bid - Daily weights - Strict I&O A.fib - Continue Eliquis - Rate controlled on Metoprolol XL - Appreciate cardiology consult 2) : CKD - Cr 2.7, at baseline - Continue to monitor - F/u outpatient cloth mender upon discharge 3) Vascular: B/l lower extremity edema, erythema - F/u b/l lower extremity doppler - Patient reports erythema began 1 week ago - Leukocytosis present - F/u ID consult for possible cellulitis 4) Endocrine: IDDM - BGM ACHS - Novolog 4u sq tidac - Levemir 28u sq qhs 5) F/E/N: - Diabetic low sodium diet - Monitor electrolytes 6) Prophylaxis: - On Eliquis - OOB ambulating 7) Dispo: - Requires continued inpatient care CODE STATUS: FULL CODE Visit type - Emergency Visit Emergency Visit: Yes ED Registration Date: 05/05/16 Care time: The patient presented to the Emergency Department on the above date and was hospitalized for further evaluation of their emergent condition. - New Patient This patient is new to me today: Yes Date on this admission: 05/06/16 - Critical Care Critical Care patient: No
[2016-05-06] MEDS: FUROSEMIDE 40 MG/4 ML INJECTABLE VIAL IVPUSH SCH (14:23)
--- NOTE | 2016-05-06 16:55 | CONSULT ---
Consult Consult Specialty:: infectious diseases Referred by:: Ute Reason for Consultation:: cellulitis of bilateral ext - History of Present Illness Chief Complaint: anuria History of Present Illness: 55 y/o male with a past medical history of Afib , CAD, CHF, CVA , HTN, HLD, IDDM , CKD, Cirrhosis, Diverticulitis. Who presents to the ED with sharp intermittent midsternal chest pain x today, B/L lower extremity edema, erythema , and SOB x 3 days. Patient reports noting a decrease in his urine flow, increasing his Lasix dosage. patient was c/o of pain in the leg and more in the left leg since last time patient was discharged - History Source History Provided By: Patient Limitations to Obtaining History: No Limitations - Past Medical History ACCOUNTS RECEIVABLE COLLECTOR: Yes: CVA (On 06/02/14 while in [facility]; right visual field cut), Other (hemorrhagic post. circualtion cerebral infarction while on anticoagulation therapy.) Cardio/Vascular: Yes: AFIB (Last dose Xarelto about two weeks ago; on heparin drip thru 06/11/14), CHF (Systolic), HTN, Hyperlipdemia, Other (Non-ischemic cardiomyopathy diagnosed 07/19 at [facility]) Pulmonary: Yes: Sleep Apnea (Not on home CPAP) Renal/: Yes: Renal Failure, Renal Inusuff, Other (Frequent urination) Infectious Disease: Yes: Other (right foot abcess) Endocrine: Yes: Diabetes Mellitus - Past Surgical History Past Surgical History: Yes: None - Alcohol/Substance Use Hx Alcohol Use: Yes (SOCIALLY) History of Substance Use: reports: None - Smoking History Smoking history: Never smoked Have you smoked in the past 12 months: No - Social History Usual Living Arrangement: Alone ADL: Independent Home Medications - Allergies Allergies/Adverse Reactions: Allergies Allergy/AdvReac Type Severity Reaction Status Date / Time ciprofloxacin [From Cipro] Allergy Severe Rash Verified 05/05/16 17:48 ciprofloxacin HCl Allergy Severe Rash Verified 05/05/16 17:48 [From Cipro] - Home Medications Home Medications: Ambulatory Orders Insulin (Novolog) [Novolog Flexpen -] 4 units SQ AC #1 pen 09/07/14 Atorvastatin Ca [Lipitor] 10 mg PO HS #30 tablet 02/26/15 Hydralazine HCl [Apresoline -] 100 mg PO TID #90 tablet 02/26/15 Insulin (Levemir) [Levemir Vial] 28 units SQ HS #7 ml 02/26/15 Isosorbide Mononitrate [Imdur -] 60 mg PO BID #60 tab.sr.24h 02/26/15 Metoprolol Succinate [Toprol XL -] 150 mg PO BID #60 tab.sr.24h 02/26/15 Amlodipine Besylate [Norvasc -] 5 mg PO DAILY #30 tablet 10/29/15 Apixaban [Eliquis -] 5 mg PO BID #60 tablet 10/29/15 Torsemide [Demadex -] 60 mg PO DAILY #90 tablet 12/20/15 Tamsulosin HCl [Flomax -] 0.4 mg PO DAILY@0830 cap.er.24h 04/02/16 Family Disease History - Family Disease History Family Disease History: Heart Disease: Mother ([place] 60's) Review of Systems - Review of Systems Constitutional: reports: No Symptoms Eyes: reports: No Symptoms HENT: reports: No Symptoms Neck: reports: No Symptoms Cardiovascular: reports: Chest Pain, Other Respiratory: reports: No Symptoms Gastrointestinal: reports: No Symptoms Genitourinary: reports: Other (decreased urine outpurt) Musculoskeletal: reports: Other Integumentary: reports: Change in Color, Erythema Neurological: reports: No Symptoms Psychiatric: reports: No Symptoms Physical Exam Vital Signs: Vital Signs Temperature 97.7 F 05/06/16 14:32 Pulse Rate 96 H 05/06/16 14:32 Respiratory Rate 20 05/06/16 14:32 Blood Pressure 123/68 05/06/16 14:32 O2 Sat by Pulse Oximetry (%) 96 05/06/16 09:30 Constitutional: Yes: Well Nourished, Mild Distress, Obese Cardiovascular: Yes: Pulse Irregular Respiratory: Yes: Regular, CTA Bilaterally Gastrointestinal: Yes: Normal Bowel Sounds, Soft Musculoskeletal: Yes: Other Extremities: Yes: Erythema, Other Integumentary: Yes: Erythema (bilateral ext cellulitis) Neurological: Yes: Alert, Oriented Psychiatric: Yes: Alert, Oriented Labs: CBC, BMP 05/06/16 06:07 05/06/16 06:07 Imaging - Results Chest X-ray: Report Reviewed, Image Reviewed Assessment/Plan Problem List - Problem (1) atrial fibrillation (2) Acute exacerbation of CHF (congestive heart failure) Code(s): I50.9 - HEART FAILURE, UNSPECIFIED (3) Systolic and diastolic CHF, acute on chronic Code(s): I50.43 - ACUTE ON CHRONIC COMBINED SYSTOLIC AND DIASTOLIC HRT FAIL (4) Dyspnea on exertion Code(s): R06.09 - OTHER FORMS OF DYSPNEA (5) Acute on chronic renal failure Code(s): N17.9 - ACUTE KIDNEY FAILURE, UNSPECIFIED N18.9 - CHRONIC KIDNEY DISEASE, UNSPECIFIED (6) Lower extremity edema Code(s): R60.0 - LOCALIZED EDEMA (7) CAD (coronary artery disease) Code(s): I25.10 - ATHSCL HEART DISEASE OF [place] CORONARY ARTERY W/O ANG PCTRS (8) Diabetes mellitus Code(s): E11.9 - TYPE 2 DIABETES MELLITUS WITHOUT COMPLICATIONS (9) Hypertension Code(s): I10 - ESSENTIAL (PRIMARY) HYPERTENSION bilateral cellulitis of the legs plan elevation of the legs started patient on unasyn will monitor rest as per primary
[2016-05-06] MEDS: AMPICILLIN NA/SULBACTAM NA 3 GM in SODIUM CHLORIDE 100 ML IVPB SCH (18:22)
[2016-05-06 19:28] LABS: CALCIUM 7.9 mg/dL (8.5-10.1); CREATININE 2.9 mg/dL (0.7-1.3)
[2016-05-06] MEDS: INSULIN DETEMIR 100 UNITS/ML MDV SQ SCH (22:16)
[2016-05-06] MEDS: ATORVASTATIN CA 10 MG TABLET (FP) PO SCH (22:16)
[2016-05-07] MEDS: AMPICILLIN NA/SULBACTAM NA 3 GM in SODIUM CHLORIDE 100 ML IVPB SCH ×3 (02:30→17:25)
[2016-05-07] MEDS: FUROSEMIDE 40 MG/4 ML INJECTABLE VIAL IVPUSH SCH (06:43)
[2016-05-07] MEDS: hydrALAZINE HCL 50 MG TABLET (FP) PO SCH ×3 (06:43→22:20)
[2016-05-07] MEDS: INSULIN (NOVOLOG) ASPART 100 UNITS/ML 10ML VIAL SQ SCH ×3 (06:43→16:43)
[2016-05-07 08:19] LABS: BASOPHIL 0.4 % (0-2.0); EOSINOPHIL 1.7 % (0-4.5); MCH 29.1 pg (25.7-33.7); MCHC 32.9 g/dl (32.0-35.9); MEAN CELL VOLUME 88.3 fl (80-96); NEUTROPHILS 79.6 % (42.8-82.8); PLATELET COUNT 244 K/MM3 (134-434); RDW 18.9 % (11.9-15.9)
[2016-05-07] MEDS: TAMSULOSIN HCL 0.4 MG CAP.ER.24H (FP) PO SCH (08:23)
[2016-05-07 09:01] LABS: ALBUMIN 2.5 g/dl (3.4-5.0); CALCIUM 7.7 mg/dL (8.5-10.1); CREATININE 2.9 mg/dL (0.7-1.3)
[2016-05-07 09:03] LABS: BILIRUBIN,TOTAL 1.2 mg/dL (0.2-1.0); TOT PROT 6.4 g/dl (6.4-8.2)
--- NOTE | 2016-05-07 09:26 | PN ---
Progress Note (short form) - Note Progress Note: Subjective: The patient was seen and examined at the bedside, he reports feeling better, however his states intermittent dizziness. Hydralazine and Norvasc held this AM as BP low. B/l lower extremity erythema improving on Unasyn Current Medications Generic Name Dose Route Start Last Admin Trade Name Raphaelq PRN Reason Stop Dose Admin Amlodipine Besylate 5 mg 05/06/16 10:00 05/06/16 09:00 Norvasc - PO 5 mg DAILY ANURADHA Administration Apixaban 5 mg 05/05/16 22:00 05/06/16 22:16 Eliquis - PO 5 mg BID ANURADHA Administration Atorvastatin Calcium 10 mg 05/05/16 22:00 05/06/16 22:16 Lipitor - PO 10 mg HS ANURADHA Administration Furosemide 80 mg 05/06/16 14:00 05/07/16 06:43 Lasix Injection - IVPUSH 80 mg BID@0600,1400 ANURADHA Administration Hydralazine HCl 100 mg 05/05/16 22:00 05/07/16 06:43 Apresoline - PO Not Given TID ANURADHA Ampicillin Sodium/Sulbactam 100 mls @ 200 mls/hr 05/06/16 18:00 05/07/16 02:30 Sodium 3 gm/ Sodium Chloride IVPB 200 mls/hr Q8H-IV ANURADHA Administration Insulin Aspart 4 units 05/06/16 07:00 05/07/16 06:43 Novolog Vial SQ 4 units TIDAC ANURADHA Administration Insulin Detemir 28 units 05/05/16 22:00 05/06/16 22:16 Levemir Vial SQ 28 units HS ANURADHA Administration Isosorbide Mononitrate 60 mg 05/05/16 22:00 05/06/16 22:16 Imdur - PO 60 mg BID ANURADHA Administration Metoprolol Succinate 150 mg 05/05/16 22:00 05/06/16 23:54 Toprol Xl - PO 150 mg BID ANURADHA Administration Tamsulosin HCl 0.4 mg 05/06/16 08:30 05/07/16 08:23 Flomax - PO 0.4 mg DAILY@0830 ANURADHA Administration Objective: Vital Signs Period Temp Pulse Resp BP Sys/Perez Pulse Ox Last 24 Hr 97.7 F-99.3 F 92-106 18-22 90-124/47-80 95-96 Physical Exam: General: Morbidly obese Lungs: CTA bilaterally Heart: Irregular rate and rhythm Abd: Soft, non-tender, non-distended. Normoactive bowel sounds Ext: 1+ B/l lower extremity edema, b/l [place] extremity erythema, improving. Left knee abrasion Neuro: CN 2-12 intact CBCD WBC 14.0 K/mm3 (4.0-10.0) H 05/07/16 06:02 RBC 4.12 M/mm3 (4.00-5.60) 05/07/16 06:02 Hgb 12.0 GM/dL (11.7-16.9) 05/07/16 06:02 Hct 36.4 % (35.4-49) 05/07/16 06:02 MCV 88.3 fl (80-96) 05/07/16 06:02 MCHC 32.9 g/dl (32.0-35.9) 05/07/16 06:02 RDW 18.9 % (11.9-15.9) H 05/07/16 06:02 Plt Count 244 K/MM3 (134-434) 05/07/16 06:02 MPV 8.0 fl (7.5-11.1) 05/07/16 06:02 CMP Sodium 140 mmol/L (136-145) 05/07/16 06:02 Potassium 3.7 mmol/L (3.5-5.1) 05/07/16 06:02 Chloride 102 mmol/L (98-107) 05/07/16 06:02 Carbon Dioxide 26 mmol/L (21-32) 05/07/16 06:02 Anion Gap 12 (8-16) 05/07/16 06:02 BUN 45 mg/dL (7-18) H 05/07/16 06:02 Creatinine 2.9 mg/dL (0.7-1.3) H 05/07/16 06:02 Creat Clearance w eGFR 22.88 (>60) 05/07/16 06:02 Random Glucose 127 mg/dL (74-106) H D 05/07/16 06:02 Calcium 7.7 mg/dL (8.5-10.1) L 05/07/16 06:02 Total Bilirubin 1.2 mg/dL (0.2-1.0) H D 05/07/16 06:02 AST 23 U/L (15-37) 05/07/16 06:02 ALT 13 U/L (12-78) 05/07/16 06:02 Alkaline Phosphatase 171 U/L (45-117) H 05/07/16 06:02 Total Protein 6.4 g/dl (6.4-8.2) 05/07/16 06:02 Albumin 2.5 g/dl (3.4-5.0) L 05/07/16 06:02 CARDIAC ENZYMES Creatine Kinase 228 IU/L (39-308) 05/06/16 06:07 Troponin I 0.10 ng/ml (0.00-0.05) H 05/06/16 06:07 Assessment: This is a 55 year old male with PMHx of A.fib (on eliquis), CAD, CHF , 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 Plan: 1) Cardiology: chest pain - Borderline elevation in troponin, trended down - No current signs of ACS - Continue Lipitor - Continue Norvasc (held AM dose 2/2 BP) - Continue Imdur - Continue hydralazine (held AM dose 2/2 BP) - Appreciate cardiology consult Acute systolic heart failure exacerbation - B/l lower extremity edema improving - Started on Lasix 80mg IVP bid - Daily weights - Strict I&O A.fib - Continue Eliquis - Rate controlled on Metoprolol XL - Appreciate cardiology consult 2) : CKD - Cr 2.9, ~ baseline - Continue to monitor - F/u outpatient clinical technologist upon discharge 3) ID: B/l lower extremity edema, erythema, cellulitis - B/l lower extremity doppler negative for DVT - Leukocytosis - Started on Unasyn - Appreciate ID consult 4) Endocrine: IDDM - BGM ACHS - Novolog 4u sq tidac - Levemir 28u sq qhs 5) F/E/N: - Diabetic low sodium diet - Monitor electrolytes 6) Prophylaxis: - On Eliquis - OOB ambulating 7) Dispo: - Requires continued inpatient care CODE STATUS: FULL CODE Visit type - Emergency Visit Emergency Visit: Yes ED Registration Date: 05/05/16 Care time: The patient presented to the Emergency Department on the above date and was hospitalized for further evaluation of their emergent condition. - New Patient This patient is new to me today: No - Critical Care Critical Care patient: No
[2016-05-07] MEDS: APIXABAN 5 MG TABLET PO SCH ×2 (10:29→22:26)
[2016-05-07] MEDS: METOPROLOL SUCCINATE 100 MG TAB.SR.24H (FP) PO SCH (10:30)
[2016-05-07] MEDS: ISOSORBIDE MONONITRATE 60 MG TAB.SR.24H (FP) PO SCH ×2 (10:30→22:20)
[2016-05-07] MEDS: amLODIPine BESYLATE 5 MG TABLET (FP) PO SCH (10:30)
--- NOTE | 2016-05-07 14:22 | PN ---
Progress Note (short form) - Note Progress Note: CC: sob, le edema S: Today states he had been having chronic poor PO intake for the past few weeks when feeling unwell from LE erythema/cellulitis. Then had a drop in UOP and so increased dose of torsemide from 40 mg daily to 80mg bid with worsened UOP. Today states sob improved, still with minimal uop. no cp, palps. + dizziness persists. Sees dr cohen for cardio but poor f/u, compliance. Current Medications Amlodipine Besylate (Norvasc -) 5 mg PO DAILY [facility] Last Admin: 05/07/16 10:30 Dose: Not Given Apixaban (Eliquis -) 5 mg PO BID [facility] Last Admin: 05/07/16 10:29 Dose: 5 mg Atorvastatin Calcium (Lipitor -) 10 mg PO HS [facility] Last Admin: 05/06/16 22:16 Dose: 10 mg Hydralazine HCl (Apresoline -) 100 mg PO TID [facility] Last Admin: 05/07/16 06:43 Dose: Not Given Ampicillin Sodium/Sulbactam (Sodium 3 gm/ Sodium Chloride) 100 mls @ 200 mls/ hr IVPB Q8H-IV [facility] Last Admin: 05/07/16 10:33 Dose: 200 mls/hr Insulin Aspart (Novolog Vial) 4 units SQ TIDAC [facility] Last Admin: 05/07/16 11:52 Dose: 4 units Insulin Detemir (Levemir Vial) 28 units SQ HS [facility] Last Admin: 05/06/16 22:16 Dose: 28 units Isosorbide Mononitrate (Imdur -) 60 mg PO BID [facility] Last Admin: 05/07/16 10:30 Dose: 60 mg Metoprolol Succinate (Toprol Xl -) 150 mg PO BID [facility] Last Admin: 05/07/16 10:30 Dose: 150 mg Tamsulosin HCl (Flomax -) 0.4 mg PO DAILY@0830 [facility] Last Admin: 05/07/16 08:23 Dose: 0.4 mg Vital Signs - 24 hr 05/06/16 05/06/16 05/06/16 14:32 17:00 20:00 Temperature 97.7 F 98.0 F 98.6 F Pulse Rate 96 H 103 H 106 H Respiratory 20 18 20 Rate Blood Pressure 123/68 124/80 90/54 O2 Sat by Pulse Oximetry (%) 05/06/16 05/07/16 05/07/16 21:00 02:01 06:00 Temperature 99.3 F 97.9 F Pulse Rate 99 H 92 H Respiratory 20 20 20 Rate Blood Pressure 106/70 101/64 O2 Sat by Pulse 95 Oximetry (%) 05/07/16 08:29 Temperature 97.8 F Pulse Rate 100 H Respiratory 20 Rate Blood Pressure 115/60 O2 Sat by Pulse Oximetry (%) Intake & Output 05/05/16 05/06/16 05/07/16 05/08/16 07:59 07:59 07:59 07:59 Intake Total 460 Output Total 900 Balance -440 Weight 354 lb 353 lb 12.8 oz Constitutional: Yes: No Distress, Obese Eyes: No: Sclera Icterus HENT: No: Nasal Congestion Respiratory: cta bl nl eff No: Accessory Muscle Use Gastrointestinal: Yes: Normal Bowel Sounds. obese No: Distention, Hepatomegaly, Palpable Mass, tenderness Cardiovascular: Yes: Irregular Rate and Rhythm JVD: tds Carotid Bruit: No PMI: Non-Displaced Heart Sounds: Yes: nl, S1, S2. No: Gallop Murmur: No: Systolic Murmur, Diastolic Murmur Edema: trace LE bl, erythema of shins bl Peripheral Pulses: pos dp pt no carotid bruits Integumentary: No: Jaundice diaphoresis Neurological: Yes: Alert, Oriented (x3) Psychiatric: No: Agitated CBC, BMP 05/07/16 06:02 05/07/16 06:02 Laboratory Tests 05/05/16 05/05/16 05/07/16 16:42 16:42 06:02 INR 1.33 H Total Bilirubin 1.6 H D 1.2 H D AST 26 D 23 ALT 15 D 13 Alkaline Phosphatase 205 H D 171 H Albumin 2.5 L EKG 05/05/16: afib, vr 128, nonspecific tw changes, no st changes, no sig change prior CXR: no chf Echo 10/2015: Moderately decreased LV function (global). Nl RV size/fn. 1+ MR. mild-mod TR. mild ao dilation. Trivial effusion. cath 06/2013: 60-70 rpl1, 80-90 d1, subtotal om1 MIBI 08/2014 (pers): no STs; no ischemia seen; predominantly fixed medium-sized inferior/basal inferolat/apico-inferior defect c/w diaphragm attenuation; EF 46% tele: afib, rate controlled, 5b nsvt x 1 a/p: 55 yo with h/o afib with prior ?embolic CVA 05/2014 ([facility]) right visual field cut, syncope 09/19 with ICH at that time vs other entity on MRI and recurrent syncope 12/2015 (unclear etiology), Non-ischemic cardiomyopathy dx 2013 at [facility], HTN, HPL, Rt carotid stenosis, IDDM, RLE cellulitis s/p debridement, MSSA bacteremia 10/2015, DAMIAN not on home cpap, ckd, who presents with sob, le edema. sob, le edema, acute systolic HF exacerbation, NICM: -Frequent admits for chf, has poor outpt f/u so frequently re-accumulates volume w/o contacting outpt cardio. Was on torsemide 60 qd at home. -dry wt on dc usually around 340-370 lbs -Initially appeared volume overloaded with some worse le edema and diuresed with lasix 80 iv bid which diureses him well in past, daily wts/chemistry. Weight trending down, but creatinine worsening - 05/07: pannus edema and LE edema appears close to baseline. Would decrease diuretic dose back to 40 mg daily and check orthostatics. 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 Contrast enhancing lesion seen 06/19 and the prior heme on MRI were in same location and was thought to be most likely 2/2 post CVA hemorrhagic conversion (i.e. without hi risk for recurrent ICH). Less likely low-grade glioma, which would have very low risk of bleeding if AC resumed--hence the recs at that time were for usual AC considerations for his afib, no special precautions (pt failed repeatedly to f/u with neuro as outpatient, and then worsening renal fxn made him hi risk for morena when here last time). -warfarin changed to eliquis on past admits due to pt's repeated refusal to f/u with cardiology or have reliable INRs and make rec'd coumadin dose change, with worrisome CHADS-VASC 6 = estimated risk 9-10%/year, and hence concern he will stroke again on warfarin. - now on eliquis - Con't home regimen toprol 150 mg bid, rate controlled on tele - 05/07 5-b nsvt. electrolyte repletion prn. monitor for recurrence cad: -managed medically, no angina/ACS/ischemia since -Here with borderline elevation in troponin, flat trend, consistent with prior baseline values. no signs acs, instead likely due to CHF and CKD. -continue home statin, bb, imdur, hydralazine -con't to defer ASA as pt with stable CAD in past and also on AC R carotid stenosis: -ADRIENNE with PSV in high 200s cm/sec here, suspicious for >70% stenosis per radiology report -vascular surgery c/s on prior admit felt stenosis is at MOST 70% (deferred further imaging with contrast due to low GFR). Recommended deferring CEA unless imaging suggested >80% stenosis, or if he developed symptoms/acute cerebrovascular event. Ao dilation - Con't bb. Routine outpatient surveillance CKD: - baseline cr 2.5-2.6 - worsened with diuresis, / may be overdiuresed - decreasing diuretic dose DAMIAN not on home cpap - CPAP as needed.
[2016-05-07] MEDS ORDERED: POTASSIUM CHLORIDE TABS 20 MEQ TABLET.ER (FP) PO ONE (14:25)
[2016-05-07] MEDS ORDERED: PT OWN MED DRAWER 7, Y5N ONE (17:16)
--- NOTE | 2016-05-07 17:47 | PN ---
Progress Note, Physician History of Present Illness: not feeling well patient felt very dizzy and sat in [place] breathing issues still not good urine output - Current Medication List Current Medications: Active Medications Amlodipine Besylate (Norvasc -) 5 mg PO DAILY [facility] Last Admin: 05/07/16 10:30 Dose: Not Given Apixaban (Eliquis -) 5 mg PO BID [facility] Last Admin: 05/07/16 10:29 Dose: 5 mg Atorvastatin Calcium (Lipitor -) 10 mg PO [facility] Last Admin: 05/06/16 22:16 Dose: 10 mg Hydralazine HCl (Apresoline -) 100 mg PO TID [facility] Last Admin: 05/07/16 14:20 Dose: Not Given Ampicillin Sodium/Sulbactam (Sodium 3 gm/ Sodium Chloride) 100 mls @ 200 mls/ hr IVPB Q8H-IV [facility] Last Admin: 05/07/16 17:25 Dose: 200 mls/hr Insulin Aspart (Novolog Vial) 4 units SQ TIDAC [facility] Last Admin: 05/07/16 16:43 Dose: 4 units Insulin Detemir (Levemir Vial) 28 units SQ [facility] Last Admin: 05/06/16 22:16 Dose: 28 units Isosorbide Mononitrate (Imdur -) 60 mg PO BID [facility] Last Admin: 05/07/16 10:30 Dose: 60 mg Metoprolol Succinate (Toprol Xl -) 150 mg PO BID [facility] Last Admin: 05/07/16 10:30 Dose: 150 mg Tamsulosin HCl (Flomax -) 0.4 mg PO DAILY@0830 [facility] Last Admin: 05/07/16 08:23 Dose: 0.4 mg Torsemide (Demadex -) 40 mg PO DAILY [facility] - Objective Vital Signs: Vital Signs Temperature 98 F 05/07/16 14:38 Pulse Rate 91 H 05/07/16 14:38 Respiratory Rate 18 05/07/16 14:38 Blood Pressure 105/75 05/07/16 14:38 O2 Sat by Pulse Oximetry (%) 96 05/07/16 09:00 Constitutional: Yes: Mild Distress Cardiovascular: Yes: S1, S2 Respiratory: Yes: Regular, Poor Air Entry, Rhonchi Gastrointestinal: Yes: Normal Bowel Sounds, Soft Musculoskeletal: Yes: Other Extremities: Yes: Erythema (starting to improve), Other Integumentary: Yes: Erythema (improving) Neurological: Yes: Alert, Oriented Psychiatric: Yes: Alert Labs: CBC, BMP 05/07/16 06:02 05/07/16 06:02 INR, PTT INR 1.33 (0.82-1.09) H 05/05/16 16:42 Assessment/Plan Problem List - Problem (1) atrial fibrillation (2) Acute exacerbation of CHF (congestive heart failure) Code(s): I50.9 - HEART FAILURE, UNSPECIFIED (3) Systolic and diastolic CHF, acute on chronic Code(s): I50.43 - ACUTE ON CHRONIC COMBINED SYSTOLIC AND DIASTOLIC HRT FAIL (4) Dyspnea on exertion Code(s): R06.09 - OTHER FORMS OF DYSPNEA (5) Acute on chronic renal failure Code(s): N17.9 - ACUTE KIDNEY FAILURE, UNSPECIFIED N18.9 - CHRONIC KIDNEY DISEASE, UNSPECIFIED (6) Lower extremity edema Code(s): R60.0 - LOCALIZED EDEMA (7) CAD (coronary artery disease) Code(s): I25.10 - ATHSCL HEART DISEASE OF [place] CORONARY ARTERY W/O ANG PCTRS (8) Diabetes mellitus Code(s): E11.9 - TYPE 2 DIABETES MELLITUS WITHOUT COMPLICATIONS (9) Hypertension Code(s): I10 - ESSENTIAL (PRIMARY) HYPERTENSION bilateral cellulitis of the legs plan elevation of the legs continue unasyn will monitor rest as per primary cardiology input
[2016-05-07] MEDS: INSULIN DETEMIR 100 UNITS/ML MDV SQ SCH (22:26)
[2016-05-07] MEDS: ATORVASTATIN CA 10 MG TABLET (FP) PO SCH (22:26)
[2016-05-07 22:49] LABS: TROPONIN I 0.07 ng/ml (0.00-0.05)
--- NOTE | 2016-05-08 00:02 | HOSP ---
Subjective - Review of Symptoms Events since last encounter: Pt c/o chest tightness/squeezing feeling in midsternum. Started 1 hour before I saw him and it has been constant. Denies any radiating pain but does state that he also feels nauseous over the last hour as well. Denies any palpitations, light-headedness at this time but states he had a syncopal event earlier today. On physical exam pt was aaox3, in no acute distress, heart sounds irregularly irregular, no murmurs appreciated. Vital Signs Temperature 97.7 F 05/07/16 17:00 Pulse Rate 104 H 05/07/16 17:00 Respiratory Rate 20 05/07/16 20:17 Blood Pressure 124/64 05/07/16 17:00 O2 Sat by Pulse Oximetry (%) 95 05/07/16 20:17 Laboratory Tests 05/07/16 22:10 Creatine Kinase 185 CK-MB (CK-2) 3.687 H Troponin I 0.07 H D a/p -chest pain -ekg stat - no changes from baseline ekg, no st changes noted -cardiac profile shows down trending trop and ck-mb Physical Examination Vital Signs: Vital Signs Temperature 97.7 F 05/07/16 17:00 Pulse Rate 104 H 05/07/16 17:00 Respiratory Rate 20 05/07/16 20:17 Blood Pressure 124/64 05/07/16 17:00 O2 Sat by Pulse Oximetry (%) 95 05/07/16 20:17 Labs: CBC, BMP 05/07/16 06:02 05/07/16 06:02 Visit type - Emergency Visit Emergency Visit: Yes ED Registration Date: 05/05/16 Care time: The patient presented to the Emergency Department on the above date and was hospitalized for further evaluation of their emergent condition. - New Patient This patient is new to me today: Yes Date on this admission: 05/11/16 - Critical Care Critical Care patient: No
[2016-05-08] MEDS: METOPROLOL SUCCINATE 100 MG TAB.SR.24H (FP) PO SCH ×3 (00:16→21:45)
[2016-05-08] MEDS ORDERED: PT OWN MED DRAWER 7, Y5N ONE (02:21)
[2016-05-08] MEDS: AMPICILLIN NA/SULBACTAM NA 3 GM in SODIUM CHLORIDE 100 ML IVPB SCH ×3 (02:30→17:13)
--- NOTE | 2016-05-08 05:50 | HOSP ---
[id number] the patient is reporting increased SOB, L- sided chest pain x am Orders placed for Stat- EKG, Chest Xray, ABG, CE EKG reviewed no change compared to prior study Chest Xray image- vascular congestion ABG-pending Cardiac Enzymes- negative Continue Diuretics, will endorse to Day Team Pulmonary: Yes: Dyspnea Cardiovascular: Yes: Chest Pain Physical Examination Vital Signs: Vital Signs Temperature 97.6 F 05/08/16 02:33 Pulse Rate 104 H 05/08/16 02:33 Respiratory Rate 18 05/08/16 02:33 Blood Pressure 101/56 05/08/16 02:33 O2 Sat by Pulse Oximetry (%) 95 05/07/16 20:17 Constitutional: Yes: Moderate Distress Cardiovascular: Yes: Pulse Irregular, S1, S2 Respiratory: Yes: On Nasal O2, Rhonchi Psychiatric: Yes: WNL, Alert, Oriented Labs: CBC, BMP 05/07/16 06:02 05/07/16 06:02 Troponin, BNP 05/07/16 22:10 Troponin I 0.07 H D Intake & Output 05/05/16 05/06/16 05/07/16 05/08/16 23:59 23:59 23:59 23:59 Intake Total 360 630 Output Total 600 700 Balance -240 -70 Weight 161.025 kg 160.572 kg 160.481 kg Current Medications Generic Name Dose Route Start Last Admin Trade Name Freq PRN Reason Stop Dose Admin Amlodipine Besylate 5 mg 05/06/16 10:00 05/07/16 10:30 Norvasc - PO Not Given DAILY [facility] Apixaban 5 mg 05/05/16 22:00 05/07/16 22:26 Eliquis - PO 5 mg BID [facility] Administration Atorvastatin Calcium 10 mg 05/05/16 22:00 05/07/16 22:26 Lipitor - PO 10 mg HS [facility] Administration Hydralazine HCl 100 mg 05/05/16 22:00 05/07/16 22:20 Apresoline - PO Not Given TID [facility] Ampicillin Sodium/Sulbactam 100 mls @ 200 mls/hr 05/06/16 18:00 05/07/16 17:25 Sodium 3 gm/ Sodium Chloride IVPB 200 mls/hr Q8H-IV [facility] Administration Insulin Aspart 4 units 05/06/16 07:00 05/07/16 16:43 Novolog Vial SQ 4 units TIDAC [facility] Administration Insulin Detemir 28 units 05/05/16 22:00 05/07/16 22:26 Levemir Vial SQ 28 units HS [facility] Administration Isosorbide Mononitrate 60 mg 05/05/16 22:00 05/07/16 22:20 Imdur - PO Not Given BID [facility] Metoprolol Succinate 150 mg 05/05/16 22:00 05/08/16 00:16 Toprol Xl - PO Not Given BID [facility] Tamsulosin HCl 0.4 mg 05/06/16 08:30 05/07/16 08:23 Flomax - PO 0.4 mg DAILY@0830 [facility] Administration Torsemide 40 mg 05/08/16 10:00 Demadex - PO DAILY [facility]
[2016-05-08 06:07] LABS: ARTERIAL BLD GAS O2 SATURATION 97.9 % (90-98.9); ARTERIAL BLOOD GAS BASE EXCESS -1.3 meq/l (-2-2)
[2016-05-08 06:13] LABS: ALLENS TEST POSITIVE; ART PUNCT SITE LEFT RADIAL; ARTERIAL BLOOD GAS pH 7.47 (7.35-7.45); LPM/O2% 2 LPM; PT. ON O2? YES; TYPE OF O2 NASAL O2
[2016-05-08] MEDS: INSULIN (NOVOLOG) ASPART 100 UNITS/ML 10ML VIAL SQ SCH ×3 (06:49→17:13)
[2016-05-08] MEDS: hydrALAZINE HCL 50 MG TABLET (FP) PO SCH ×3 (07:00→21:45)
[2016-05-08 07:57] LABS: MCH 28.6 pg (25.7-33.7); MCHC 32.1 g/dl (32.0-35.9); MEAN CELL VOLUME 89.3 fl (80-96); PLATELET COUNT 246 K/MM3 (134-434); RDW 18.7 % (11.9-15.9); WHITE BLOOD COUNT 13.9 K/mm3 (4.0-10.0)
[2016-05-08 08:17] LABS: ALBUMIN 2.7 g/dl (3.4-5.0); BILIRUBIN,TOTAL 1.3 mg/dL (0.2-1.0); CALCIUM 7.9 mg/dL (8.5-10.1); CREATININE 3.6 mg/dL (0.7-1.3)
--- NOTE | 2016-05-08 08:21 | PN ---
Progress Note, Physician - Current Medication List Current Medications: Active Medications Amlodipine Besylate (Norvasc -) 5 mg PO DAILY [facility] Last Admin: 05/07/16 10:30 Dose: Not Given Apixaban (Eliquis -) 5 mg PO BID [facility] Last Admin: 05/07/16 22:26 Dose: 5 mg Atorvastatin Calcium (Lipitor -) [address] [facility] Last Admin: 05/07/16 22:26 Dose: 10 mg Hydralazine HCl (Apresoline -) 100 mg PO TID [facility] Last Admin: 05/07/16 22:20 Dose: Not Given Ampicillin Sodium/Sulbactam (Sodium 3 gm/ Sodium Chloride) 100 mls @ 200 mls/ hr IVPB Q8H-IV [facility] Last Admin: 05/08/16 02:30 Dose: 200 mls/hr Insulin Aspart (Novolog Vial) 4 units SQ TIDAC [facility] Last Admin: 05/08/16 06:49 Dose: 4 units Insulin Detemir (Levemir Vial) [address] [facility] Last Admin: 05/07/16 22:26 Dose: 28 units Isosorbide Mononitrate (Imdur -) 60 mg PO BID [facility] Last Admin: 05/07/16 22:20 Dose: Not Given Metoprolol Succinate (Toprol Xl -) 150 mg PO BID [facility] Last Admin: 05/08/16 00:16 Dose: Not Given Tamsulosin HCl (Flomax -) 0.4 mg PO DAILY@0830 [facility] Last Admin: 05/07/16 08:23 Dose: 0.4 mg Torsemide (Demadex -) 40 mg PO DAILY [facility] - Objective Vital Signs: Vital Signs Temperature 97.8 F 05/07/16 20:00 Pulse Rate 90 05/08/16 00:30 Respiratory Rate 20 05/08/16 00:30 Blood Pressure 100/56 05/08/16 00:30 O2 Sat by Pulse Oximetry (%) 99 05/08/16 06:41 Labs: CBC, BMP 05/08/16 06:00 INR, PTT INR 1.33 (0.82-1.09) H 05/05/16 16:42 Assessment/Plan Echo 10/2015: Moderately decreased LV function (global). Nl RV size/fn. 1+ MR. mild-mod TR. mild ao dilation. Trivial effusion. cath 06/2013: 60-70 rpl1, 80-90 d1, subtotal om1 MIBI 08/2014 (pers): no STs; no ischemia seen; predominantly fixed medium-sized inferior/basal inferolat/apico-inferior defect c/w diaphragm attenuation; EF 46% a/p: 55 yo with h/o afib with prior ?embolic CVA 05/2014 ([facility]) right visual field cut, syncope 09/19 with ICH at that time vs other entity on MRI and recurrent syncope 12/2015 (unclear etiology), Non-ischemic cardiomyopathy dx 2013 at [facility], HTN, HPL, Rt carotid stenosis, IDDM, RLE cellulitis s/p debridement, MSSA bacteremia 10/2015, DAMIAN not on home cpap, ckd, who presents with sob, le edema. PT DOES NOT SEE ANY MD IN OFFICE, REFUSES CARDIOLOGY F/U REPEATEDLY FOR SEVERAL YEARS acute systolic HF exacerbation, NICM: -frequent admits for chf, has poor outpt f/u so frequently re-accumulates volume w/o contacting outpt cardio. Was on torsemide 60 qd at home. -wt on prior recent hosp discharge after admits for inpt diuresis has been 349- 355 lbs -when here 03/24 his wt went up from 339-349 in 4 days prior to discharge--was likely already retaining fluid at that time -pt has also had several hospital presentations in [place] due to overdiuresis, sometimes in the setting of GI issues or active infection -currently on torsemide 60mg qd at home -initially felt to be vol overloaded here with worsened edema, renal fxn worsened with diuresis (lasix 80 iv bid) -05/07 received lasix 80 iv x 1, changed to torsemide 40 po qd -05/08: bun/creat cont to rise -wt has increased here from 354 --> 360 in 48 hrs -earlier this am pt c/o'd sob and L cp--received lasix 80 iv x 1 -today's CXR appears more congested than prior -prior bnp range 4K-20K, currently high end of range (18K) -clearly pt in CHF based on cxr and sx's -renal fxn may be worsening low-output state (at risk for RV failure as well sec to untreated DAMIAN/pulm HTN), i.e. "cold and wet"--vs worsening sec to active CHF decompensation (i.e. cardiorenal syndrome)--vs ? sec to infection (being treated for cellulitis) -will start milrinone-assisted diuresis x 24 hr trial and recheck labs in am -check repeat echo -cont nitrates for cardiorenal syndrome/renal vein decompression - cont home LV dysfxn regimen of bb, hydralazine (not on kaylan/arb 2/2 ckd) Afib, h/o ischemic cva 05/20, - hemorrhagic CVA 06/19 (Imaging read as ICH or mass lesion): - prior AC decisions very complicated--see prior admit notes for details - ultimately decided risk:benefit ratio for pt was best with eliquis--cont same - Con't home regimen toprol 150 mg bid, rate controlled on tele cad: -managed medically, no angina/ACS/ischemia since -Here with borderline elevation in troponin, flat trend, consistent with prior baseline values. no signs acs, instead likely due to CHF and CKD. -continue home statin, bb, imdur, hydralazine -con't to defer ASA as pt with stable CAD in past and also on AC R carotid stenosis: -ADRIENEN with PSV in high 200s cm/sec here, suspicious for >70% stenosis per radiology report -previous inpt vascular surgery eval felt stenosis is at MOST 70% (deferred further imaging with contrast due to low GFR). Recommended deferring CEA unless imaging suggested >80% stenosis, or if he developed symptoms/acute cerebrovascular event. Ao dilation - Con't bb. - ideally should have outpt monitoring but repeatedly refuses office f/u [place] on CKD: - baseline cr 2.5-2.6 - now worsening, as disc'd above DAMIAN not on home cpap - repeatedly has refused treatment
[2016-05-08] MEDS: APIXABAN 5 MG TABLET PO SCH ×2 (09:00→21:44)
[2016-05-08] MEDS: TORSEMIDE 20 MG TABLET (FP) PO SCH (09:00)
[2016-05-08] MEDS: TAMSULOSIN HCL 0.4 MG CAP.ER.24H (FP) PO SCH (09:00)
[2016-05-08] MEDS: ISOSORBIDE MONONITRATE 60 MG TAB.SR.24H (FP) PO SCH ×2 (09:01→21:44)
[2016-05-08] MEDS: amLODIPine BESYLATE 5 MG TABLET (FP) PO SCH (09:01)
[2016-05-08 09:03] LABS: TROPONIN I 0.08 ng/ml (0.00-0.05)
--- NOTE | 2016-05-08 09:12 | PN ---
Progress Note (short form) - Note Progress Note: Subjective: The patient was seen and examined at the bedside, he reports feeling better, however his states intermittent dizziness. Hydralazine and Norvasc held this AM as BP low. Dizziness yesterday which has resolved today. Patient reported chest pain and shortness of breath overnight. Repeat trop 0.07. EKG with no changes Patient placed on bipap overnight, hx of DAMIAN but is non-compliant at home Chest x-ray this AM appears more congested, started on Torsemide Current Medications Generic Name Dose Route Start Last Admin Trade Name Freq PRN Reason Stop Dose Admin Amlodipine Besylate 5 mg 05/06/16 10:00 05/08/16 09:01 Norvasc - PO 5 mg DAILY ANURADHA Administration Apixaban 5 mg 05/05/16 22:00 05/08/16 09:00 Eliquis - PO 5 mg BID ANURADHA Administration Atorvastatin Calcium 10 mg 05/05/16 22:00 05/07/16 22:26 Lipitor - PO 10 mg HS ANURADHA Administration Hydralazine HCl 100 mg 05/05/16 22:00 05/07/16 22:20 Apresoline - PO Not Given TID ANURADHA Ampicillin Sodium/Sulbactam 100 mls @ 200 mls/hr 05/06/16 18:00 05/08/16 02:30 Sodium 3 gm/ Sodium Chloride IVPB 200 mls/hr Q8H-IV ANURADHA Administration Insulin Aspart 4 units 05/06/16 07:00 05/08/16 06:49 Novolog Vial SQ 4 units TIDAC ANURADHA Administration Insulin Detemir 28 units 05/05/16 22:00 05/07/16 22:26 Levemir Vial SQ 28 units HS ANURADHA Administration Isosorbide Mononitrate 60 mg 05/05/16 22:00 05/08/16 09:01 Imdur - PO 60 mg BID ANURADHA Administration Metoprolol Succinate 150 mg 05/05/16 22:00 05/08/16 09:00 Toprol Xl - PO 150 mg BID ANURADHA Administration Tamsulosin HCl 0.4 mg 05/06/16 08:30 05/08/16 09:00 Flomax - PO 0.4 mg DAILY@0830 ANURADHA Administration Torsemide 40 mg 05/08/16 10:00 05/08/16 09:00 Demadex - PO 40 mg DAILY ANURADHA Administration Objective: Vital Signs Period Temp Pulse Resp BP Sys/Perez Pulse Ox Last 24 Hr 97.7 F-98 F 80-104 18-20 95-124/56-75 95-99 Physical Exam: General: Morbidly obese Lungs: CTA bilaterally Heart: Irregular rate and rhythm Abd: Soft, non-tender, non-distended. Normoactive bowel sounds Ext: 1+ B/l lower extremity edema, b/l [place] extremity erythema, improving. Left knee abrasion Neuro: CN 2-12 intact CBCD WBC 13.9 K/mm3 (4.0-10.0) H 05/08/16 06:00 RBC 4.38 M/mm3 (4.00-5.60) 05/08/16 06:00 Hgb 12.5 GM/dL (11.7-16.9) 05/08/16 06:00 Hct 39.1 % (35.4-49) 05/08/16 06:00 MCV 89.3 fl (80-96) 05/08/16 06:00 MCHC 32.1 g/dl (32.0-35.9) 05/08/16 06:00 RDW 18.7 % (11.9-15.9) H 05/08/16 06:00 Plt Count 246 K/MM3 (134-434) 05/08/16 06:00 MPV 8.0 fl (7.5-11.1) 05/08/16 06:00 CMP Sodium 136 mmol/L (136-145) 05/08/16 06:00 Potassium 4.2 mmol/L (3.5-5.1) 05/08/16 06:00 Chloride 99 mmol/L (98-107) 05/08/16 06:00 Carbon Dioxide 25 mmol/L (21-32) 05/08/16 06:00 Anion Gap 12 (8-16) 05/08/16 06:00 BUN 55 mg/dL (7-18) H D 05/08/16 06:00 Creatinine 3.6 mg/dL (0.7-1.3) H D 05/08/16 06:00 Creat Clearance w eGFR 17.83 (>60) 05/08/16 06:00 Random Glucose 125 mg/dL (74-106) H 05/08/16 06:00 Calcium 7.9 mg/dL (8.5-10.1) L 05/08/16 06:00 Total Bilirubin 1.3 mg/dL (0.2-1.0) H 05/08/16 06:00 AST 24 U/L (15-37) 05/08/16 06:00 ALT 16 U/L (12-78) D 05/08/16 06:00 Alkaline Phosphatase 182 U/L (45-117) H 05/08/16 06:00 Total Protein 7.0 g/dl (6.4-8.2) 05/08/16 06:00 Albumin 2.7 g/dl (3.4-5.0) L 05/08/16 06:00 CARDIAC ENZYMES Creatine Kinase 208 IU/L (39-308) 05/08/16 06:00 Troponin I 0.08 ng/ml (0.00-0.05) H 05/08/16 06:00 Assessment: This is a 55 year old male with PMHx of A.fib (on eliquis), CAD, CHF , 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 Plan: 1) Cardiology: chest pain - Borderline elevation in troponin, trended down - No current signs of ACS - Continue Lipitor - Continue Norvasc - Continue Imdur - Continue hydralazine - Appreciate cardiology consult Acute systolic heart failure exacerbation - B/l lower extremity edema improving - Started on Torsemide this AM - Bipap at night, DAMIAN but is non-compliant at home - F/u repeat ECHO - Daily weights - Strict I&O A.fib - Continue Eliquis - Rate controlled on Metoprolol XL - Appreciate cardiology consult Dizziness - F/u carotid dopplers 2) : CKD - Cr 3.6, worsening from baseline - Continue to monitor - F/u nephrology consult 3) ID: B/l lower extremity edema, erythema, cellulitis - B/l lower extremity doppler negative for DVT - Leukocytosis - Started on Unasyn - Appreciate ID consult 4) Endocrine: IDDM - BGM ACHS - Novolog 4u sq tidac - Levemir 28u sq qhs 5) F/E/N: - Diabetic low sodium diet - Monitor electrolytes 6) Prophylaxis: - On Eliquis - OOB ambulating 7) Dispo: - Requires continued inpatient care CODE STATUS: FULL CODE Visit type - Emergency Visit Emergency Visit: Yes ED Registration Date: 05/05/16 Care time: The patient presented to the Emergency Department on the above date and was hospitalized for further evaluation of their emergent condition. - New Patient This patient is new to me today: No - Critical Care Critical Care patient: No
--- NOTE | 2016-05-08 12:38 | CONSULT ---
Consult - text type - Consultation Consultation Note: Renal Consult for GILLES/CKD Stage 3 wit Volume Overload This is a 55 year old Gentleman with PMhx of CKD stage 4 with nephrotic proteinuria (Negative ANNETTA, SPEP), DM Type 2, CHF, CAD, CVA, HLD, Obesity, Afib on Eliquis who presented with 3 day history of decreased urine output, LE swelling and SOB and found to have acute CHF and noted to have Cr rise from 2.9 to 3.6 as an inpatient. Pt s/p recent admission for fluid overload and Cr on discharge was 3.4 and weight was 350lbs. Pt reports that his LE swelling has improved s/p IV lasix. Continues to have orthopnea, CALDERON and SOB at rest. No cough. NO fever or chills. NO N/V/D. NO NSAID or contrast exposure. Pt reports that he is voiding but volume is less then usual. PMhx: as above Allergies: Cipro Family Hx: NC Social Hx: NO T/A/D ROS: as per HPI, all other pertinent ros negative Home Meds: Home Medications Medication Instructions Recorded Insulin (Novolog) [Novolog Flexpen 4 units SQ AC #1 pen 09/07/14 -] Atorvastatin Ca [Lipitor] 10 mg PO HS #30 tablet 02/26/15 Hydralazine HCl [Apresoline -] 100 mg PO TID #90 tablet 02/26/15 Insulin (Levemir) [Levemir Vial] 28 units SQ HS #7 ml 02/26/15 Isosorbide Mononitrate [Imdur -] 60 mg PO BID #60 tab.sr.24h 02/26/15 Metoprolol Succinate [Toprol XL -] 150 mg PO BID #60 tab.sr.24h 02/26/15 Amlodipine Besylate [Norvasc -] 5 mg PO DAILY #30 tablet 10/29/15 Apixaban [Eliquis -] 5 mg PO BID #60 tablet 10/29/15 Torsemide [Demadex -] 60 mg PO DAILY #90 tablet 12/20/15 Tamsulosin HCl [Flomax -] 0.4 mg PO DAILY@0830 cap.er.24h 04/02/16 Vital Signs Temperature 97.8 F 05/08/16 08:36 Pulse Rate 80 05/08/16 08:36 Respiratory Rate 18 05/08/16 08:36 Blood Pressure 113/59 05/08/16 08:36 O2 Sat by Pulse Oximetry (%) 93 L 05/08/16 10:40 Intake & Output 05/05/16 05/06/16 05/07/16 05/08/16 23:59 23:59 23:59 23:59 Intake Total 360 630 450 Output Total 600 700 200 Balance -240 -70 250 Weight 355 lb 354 lb 353 lb 12.8 oz 360 lb 2 oz Gen: NAD, on Room air HEENT: NC/AT, NO JVD, Neck supple CVS: RRR, No M/R Lungs: Dec BS throughout the lung person, no rales Abd: soft NT/ND, Obese Ext: No edema, clubbing or cyanosis : no overt bladder distension Neuro: AAOX3, no focal defects CBC, BMP 05/08/16 06:00 05/08/16 06:00 Laboratory Tests 05/08/16 06:00 Calcium 7.9 L Total Bilirubin 1.3 H Alkaline Phosphatase 182 H Creatine Kinase 208 CK-MB (CK-2) 4.027 H Troponin I 0.08 H Albumin 2.7 L Current Medications Amlodipine Besylate (Norvasc -) 5 mg PO DAILY [facility] Last Admin: 05/08/16 09:01 Dose: 5 mg Apixaban (Eliquis -) 5 mg PO BID [facility] Last Admin: 05/08/16 09:00 Dose: 5 mg Atorvastatin Calcium (Lipitor -) 10 mg PO HS [facility] Last Admin: 05/07/16 22:26 Dose: 10 mg Hydralazine HCl (Apresoline -) 100 mg PO TID [facility] Last Admin: 05/07/16 22:20 Dose: Not Given Ampicillin Sodium/Sulbactam (Sodium 3 gm/ Sodium Chloride) 100 mls @ 200 mls/ hr IVPB Q8H-IV [facility] Last Admin: 05/08/16 10:10 Dose: 200 mls/hr Insulin Aspart (Novolog Vial) 4 units SQ TIDAC [facility] Last Admin: 05/08/16 12:36 Dose: 4 units Insulin Detemir (Levemir Vial) 28 units SQ HS [facility] Last Admin: 05/07/16 22:26 Dose: 28 units Isosorbide Mononitrate (Imdur -) 60 mg PO BID [facility] Last Admin: 05/08/16 09:01 Dose: 60 mg Metoprolol Succinate (Toprol Xl -) 150 mg PO BID [facility] Last Admin: 05/08/16 09:00 Dose: 150 mg Tamsulosin HCl (Flomax -) 0.4 mg PO DAILY@0830 [facility] Last Admin: 05/08/16 09:00 Dose: 0.4 mg Torsemide (Demadex -) 40 mg PO DAILY [facility] Last Admin: 05/08/16 09:00 Dose: 40 mg A/P 55 year old Gentleman with PMhx of CKD stage 4 with nephrotic proteinuria ( Negative ANNETTA, SPEP), DM Type 2, CHF, CAD, CVA, HLD, Obesity, Afib on Eliquis who presented with 3 day history of decreased urine output, LE swelling and SOB and found to have acute CHF and noted to have Cr rise from 2.9 to 3.6 as an inpatient. #CKD Stage 3 with proteinuria and volume overload Renal function slightly worse then prior admission pt reports decreased urine output and response to oral lasix Weights about the same and piror discharge but pt continues to have symptoms Given low output state and continued symptoms he will need further diuresis as per cardiology agree with tiral of milirone as per cardiology Check Urine studies for FeUrea, FeNa, UPCR Check bladder US to r/o retention dose all meds for Cr Cl less then 15 no acute indication for dialysis at this time #Acute CHF Continue diuretics as per cardiology Trend daily weights hold off DENISSE/ARB given low GFR #BPH Continue Flomax Bladder scan, can consider reepat US of kidney and bladder if retention seen on bladde scan #Hypertension no BP is marginal hold amlodpine continue imdur for CHF Thank you Will follow Steven Wyatt DO
--- NOTE | 2016-05-08 16:08 | PN ---
Progress Note, Physician History of Present Illness: patient looks much better says he is passing urine breathing much better legs improving - Current Medication List Current Medications: Active Medications Apixaban (Eliquis -) 5 mg PO BID [facility] Last Admin: 05/08/16 09:00 Dose: 5 mg Atorvastatin Calcium (Lipitor -) 10 mg PO HS [facility] Last Admin: 05/07/16 22:26 Dose: 10 mg Hydralazine HCl (Apresoline -) 100 mg PO TID [facility] Last Admin: 05/08/16 14:33 Dose: 100 mg Ampicillin Sodium/Sulbactam (Sodium 3 gm/ Sodium Chloride) 100 mls @ 200 mls/ hr IVPB Q8H-IV [facility] Last Admin: 05/08/16 10:10 Dose: 200 mls/hr Insulin Aspart (Novolog Vial) 4 units SQ TIDAC [facility] Last Admin: 05/08/16 12:36 Dose: 4 units Insulin Detemir (Levemir Vial) 28 units SQ [facility] Last Admin: 05/07/16 22:26 Dose: 28 units Isosorbide Mononitrate (Imdur -) 60 mg PO BID [facility] Last Admin: 05/08/16 09:01 Dose: 60 mg Metoprolol Succinate (Toprol Xl -) 150 mg PO BID [facility] Last Admin: 05/08/16 09:00 Dose: 150 mg Tamsulosin HCl (Flomax -) 0.4 mg PO DAILY@0830 [facility] Last Admin: 05/08/16 09:00 Dose: 0.4 mg Torsemide (Demadex -) 40 mg PO DAILY [facility] Last Admin: 05/08/16 09:00 Dose: 40 mg - Objective Vital Signs: Vital Signs Temperature 97.7 F 05/08/16 15:20 Pulse Rate 99 H 05/08/16 15:20 Respiratory Rate 18 05/08/16 08:36 Blood Pressure 130/90 05/08/16 15:20 O2 Sat by Pulse Oximetry (%) 97 05/08/16 14:05 Constitutional: Yes: No Distress, Calm Cardiovascular: Yes: S1, S2 Respiratory: Yes: Regular, Poor Air Entry Gastrointestinal: Yes: Normal Bowel Sounds, Soft Musculoskeletal: Yes: Other Extremities: Yes: Erythema (resolving), Other Integumentary: Yes: Erythema (resolving) Neurological: Yes: Alert, Oriented Psychiatric: Yes: Alert, Oriented Labs: CBC, BMP 04/03/17 06:00 05/08/16 06:00 INR, PTT INR 1.33 (0.82-1.09) H 05/05/16 16:42 Assessment/Plan Problem List - Problem (1) atrial fibrillation (2) Acute exacerbation of CHF (congestive heart failure) Code(s): I50.9 - HEART FAILURE, UNSPECIFIED (3) Systolic and diastolic CHF, acute on chronic Code(s): I50.43 - ACUTE ON CHRONIC COMBINED SYSTOLIC AND DIASTOLIC HRT FAIL (4) Dyspnea on exertion Code(s): R06.09 - OTHER FORMS OF DYSPNEA (5) Acute on chronic renal failure Code(s): N17.9 - ACUTE KIDNEY FAILURE, UNSPECIFIED N18.9 - CHRONIC KIDNEY DISEASE, UNSPECIFIED (6) Lower extremity edema Code(s): R60.0 - LOCALIZED EDEMA (7) CAD (coronary artery disease) Code(s): I25.10 - ATHSCL HEART DISEASE OF [place] CORONARY ARTERY W/O ANG PCTRS (8) Diabetes mellitus Code(s): E11.9 - TYPE 2 DIABETES MELLITUS WITHOUT COMPLICATIONS (9) Hypertension Code(s): I10 - ESSENTIAL (PRIMARY) HYPERTENSION bilateral cellulitis of the legs plan elevation of the legs continue unasyn probably by will switch to oral
--- NOTE | 2016-05-08 21:26 | PN ---
Progress Note (short form) - Note Progress Note: CC: sob, le edema S: Dizziness improving. episode of sob overnight and this am (with associated chest heaviness), sx's resolved with cpap. states he has never slept so well or felt as good since using the cpap and wants to continue using it. no sob, palps, Sees dr cohen for cardio but poor f/u, compliance. Current Medications Apixaban (Eliquis -) 5 mg PO BID [facility] Last Admin: 05/08/16 09:00 Dose: 5 mg Atorvastatin Calcium (Lipitor -) 10 mg PO HS [facility] Last Admin: 05/07/16 22:26 Dose: 10 mg Hydralazine HCl (Apresoline -) 100 mg PO TID [facility] Last Admin: 05/08/16 14:33 Dose: 100 mg Ampicillin Sodium/Sulbactam (Sodium 3 gm/ Sodium Chloride) 100 mls @ 200 mls/ hr IVPB Q8H-IV [facility] Last Admin: 05/08/16 17:13 Dose: 200 mls/hr Insulin Aspart (Novolog Vial) 4 units SQ TIDAC [facility] Last Admin: 05/08/16 17:13 Dose: 4 units Insulin Detemir (Levemir Vial) 28 units SQ HS [facility] Last Admin: 05/07/16 22:26 Dose: 28 units Isosorbide Mononitrate (Imdur -) 60 mg PO BID [facility] Last Admin: 05/08/16 09:01 Dose: 60 mg Metoprolol Succinate (Toprol Xl -) 150 mg PO BID [facility] Last Admin: 05/08/16 09:00 Dose: 150 mg Tamsulosin HCl (Flomax -) 0.4 mg PO DAILY@0830 [facility] Last Admin: 05/08/16 09:00 Dose: 0.4 mg Torsemide (Demadex -) 40 mg PO DAILY [facility] Last Admin: 05/08/16 09:00 Dose: 40 mg Vital Signs - 24 hr 05/07/16 05/08/16 05/08/16 22:00 00:30 06:41 Temperature Pulse Rate 102 H 90 Respiratory 20 20 Rate Blood Pressure 96/56 100/56 O2 Sat by Pulse 99 Oximetry (%) 05/08/16 05/08/16 05/08/16 08:00 08:36 10:40 Temperature 97.8 F Pulse Rate 80 Respiratory 22 18 Rate Blood Pressure 113/59 O2 Sat by Pulse 94 L 93 L Oximetry (%) 05/08/16 05/08/16 05/08/16 14:05 15:20 18:00 Temperature 97.7 F 97.8 F Pulse Rate 99 H 97 H Respiratory 19 Rate Blood Pressure 130/90 108/66 O2 Sat by Pulse 97 Oximetry (%) Intake & Output 05/06/16 05/07/16 05/08/16 05/09/16 07:59 07:59 07:59 07:59 Intake Total 460 630 450 Output Total 900 400 375 Balance -440 230 75 Weight 354 lb 353 lb 12.8 oz 360 lb 2 oz Constitutional: Yes: No Distress, Obese Eyes: No: Sclera Icterus HENT: No: Nasal Congestion Respiratory: cta bl nl eff No: Accessory Muscle Use Gastrointestinal: Yes: Normal Bowel Sounds. obese No: Distention, Hepatomegaly, Palpable Mass, tenderness Cardiovascular: Yes: Irregular Rate and Rhythm JVD: tds Carotid Bruit: No PMI: Non-Displaced Heart Sounds: Yes: nl, S1, S2. No: Gallop Murmur: No: Systolic Murmur, Diastolic Murmur Edema: trace LE bl, erythema of shins bl Peripheral Pulses: pos dp pt no carotid bruits Integumentary: No: Jaundice diaphoresis Neurological: Yes: Alert, Oriented (x3) Psychiatric: No: Agitated CBC, BMP 05/08/16 06:00 05/08/16 06:00 EKG 05/05/16: afib, vr 128, nonspecific tw changes, no st changes, no sig change prior CXR: no chf Echo 10/2015: Moderately decreased LV function (global). Nl RV size/fn. 1+ MR. mild-mod TR. mild ao dilation. Trivial effusion. 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 sob, le edema, acute systolic HF exacerbation, NICM: -Frequent admits for chf, has poor outpt f/u so frequently re-accumulates volume w/o contacting outpt cardio. Was on torsemide 60 qd at home. -dry wt on dc usually around 340-370 lbs -Initially appeared volume overloaded with some worse le edema and diuresed with lasix 80 iv bid which diureses him well in past, daily wts/chemistry. Weight trending down, but creatinine worsening - 4/2: pannus edema and LE edema appears close to baseline. Would decrease diuretic dose back to 40 mg daily and check orthostatics. - 05/08: torsemide 40 mg daily today, monitor for signs of reaccumulation of fluid. 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 Contrast enhancing lesion seen 06/19 and the prior heme on MRI were in same location and was thought to be most likely 2/2 post CVA hemorrhagic conversion (i.e. without hi risk for recurrent ICH). Less likely low-grade glioma, which would have very low risk of bleeding if AC resumed--hence the recs at that time were for usual AC considerations for his afib, no special precautions (pt failed repeatedly to f/u with neuro as outpatient, and then worsening renal fxn made him hi risk for morena when here last time). -warfarin changed to eliquis on past admits due to pt's repeated refusal to f/u with cardiology or have reliable INRs and make rec'd coumadin dose change, with worrisome CHADS-VASC 6 = estimated risk 9-10%/year, and hence concern he will stroke again on warfarin. - now on eliquis - Con't home regimen toprol 150 mg bid, rate controlled on tele - 05/07 5-b nsvt. electrolyte repletion prn. monitor for recurrence cad: -managed medically, no angina/ACS/ischemia since -Here with borderline elevation in troponin, flat trend, consistent with prior baseline values. no signs acs, instead likely due to CHF and CKD. -continue home statin, bb, imdur, hydralazine -con't to defer ASA as pt with stable CAD in past and also on AC R carotid stenosis: -ADRIENNE with PSV in high 200s cm/sec here, suspicious for >70% stenosis per radiology report -vascular surgery c/s on prior admit felt stenosis is at MOST 70% (deferred further imaging with contrast due to low GFR). Recommended deferring CEA unless imaging suggested >80% stenosis, or if he developed symptoms/acute cerebrovascular event. Ao dilation - Con't bb. Routine outpatient surveillance CKD: - baseline cr 2.5-2.6 - worsened with diuresis, 4/2 may be overdiuresed - decreasing diuretic dose as above DAMIAN not on home cpap - episode of sob/chest heaviness overnight and this morning likely 2/2 to not having cpap. con't CPAP qhs and as needed.
[2016-05-08] MEDS: ATORVASTATIN CA 10 MG TABLET (FP) PO SCH (21:44)
[2016-05-08] MEDS: INSULIN DETEMIR 100 UNITS/ML MDV SQ SCH (21:47)
--- NOTE | 2016-05-08 22:43 | EKG ---
Test Reason : Blood Pressure : / mmHG Vent. Rate : 128 BPM Atrial Rate : 122 BPM P-R Int : 000 ms QRS Dur : 098 ms QT Int : 396 ms P-R-T Axes : 000 -12 152 degrees QTc Int : 578 ms ATRIAL FIBRILLATION WITH RAPID VENTRICULAR RESPONSE WITH PREMATURE VENTRICULAR OR ABERRANTLY CONDUCTED COMPLEXES NONSPECIFIC ST AND T WAVE ABNORMALITY ABNORMAL ECG WHEN COMPARED WITH ECG OF 26-MAR-2016 01:35, NO SIGNIFICANT CHANGE WAS FOUND Confirmed by ADAMA RAINES MD ([id number]) on 05/08/2016 10:42:55 PM Referred By: Confirmed By:ADAMA RAINES MD
[2016-05-09] MEDS: AMPICILLIN NA/SULBACTAM NA 3 GM in SODIUM CHLORIDE 100 ML IVPB SCH ×3 (01:15→17:14)
[2016-05-09] MEDS: hydrALAZINE HCL 50 MG TABLET (FP) PO SCH ×3 (06:04→21:32)
[2016-05-09] MEDS: INSULIN (NOVOLOG) ASPART 100 UNITS/ML 10ML VIAL SQ SCH ×3 (06:19→17:02)
[2016-05-09 07:25] LABS: BASOPHIL 0.7 % (0-2.0); EOSINOPHIL 2.7 % (0-4.5); MCH 29.2 pg (25.7-33.7); MCHC 32.5 g/dl (32.0-35.9); MEAN CELL VOLUME 89.6 fl (80-96); NEUTROPHILS 76.8 % (42.8-82.8); PLATELET COUNT 219 K/MM3 (134-434); RDW 19.2 % (11.9-15.9); WHITE BLOOD COUNT 13.1 K/mm3 (4.0-10.0)
[2016-05-09 07:55] LABS: ALBUMIN 2.5 g/dl (3.4-5.0); CALCIUM 7.7 mg/dL (8.5-10.1); CREATININE 3.7 mg/dL (0.7-1.3); MAGNESIUM 2.5 mg/dL (1.8-2.4); PHOSPHOROUS 6.6 mg/dL (2.5-4.9)
[2016-05-09 07:58] LABS: TOT PROT 6.1 g/dl (6.4-8.2)
[2016-05-09] MEDS: TAMSULOSIN HCL 0.4 MG CAP.ER.24H (FP) PO SCH (08:21)
[2016-05-09] MEDS: TORSEMIDE 20 MG TABLET (FP) PO SCH (09:16)
[2016-05-09] MEDS: METOPROLOL SUCCINATE 100 MG TAB.SR.24H (FP) PO SCH ×2 (09:16→21:33)
[2016-05-09] MEDS: ISOSORBIDE MONONITRATE 60 MG TAB.SR.24H (FP) PO SCH ×2 (09:16→21:32)
[2016-05-09] MEDS: APIXABAN 5 MG TABLET PO SCH ×2 (09:16→21:32)
--- NOTE | 2016-05-09 12:13 | PN ---
Progress Note (short form) - Note Progress Note: Renal Follow up for GILLES on CKD Pt seen and examined at the bedside reports that his breathing is much better and leg swelling is improved no chest pain, abd pain reports good urine output Vital Signs Temperature 98 F 05/09/16 10:00 Pulse Rate 87 05/09/16 11:28 Respiratory Rate 20 05/09/16 10:00 Blood Pressure 120/60 05/09/16 10:00 O2 Sat by Pulse Oximetry (%) 97 05/09/16 11:28 Intake & Output 05/06/16 05/07/16 05/08/16 05/09/16 23:59 23:59 23:59 23:59 Intake Total 360 630 790 220 Output Total 600 700 575 Balance -240 -70 215 220 Weight 354 lb 353 lb 12.8 oz 360 lb 2 oz 326 lb 2 oz Gen: NAD, on Room air CVS: RRR, No M/R Lungs: Dec BS throughout the lung person, no rales Abd: soft NT/ND, Obese Ext: No edema, clubbing or cyanosis CBC, BMP 05/09/16 05:35 05/09/16 05:35 Laboratory Tests 05/09/16 05:35 Calcium 7.7 L Phosphorus 6.6 H D Magnesium 2.5 H Albumin 2.5 L Current Medications Apixaban (Eliquis -) 5 mg PO BID [facility] Last Admin: 05/09/16 09:16 Dose: 5 mg Atorvastatin Calcium (Lipitor -) 10 mg PO HS [facility] Last Admin: 05/08/16 21:44 Dose: 10 mg Hydralazine HCl (Apresoline -) 100 mg PO TID [facility] Last Admin: 05/09/16 06:04 Dose: 100 mg Ampicillin Sodium/Sulbactam (Sodium 3 gm/ Sodium Chloride) 100 mls @ 200 mls/ hr IVPB Q8H-IV [facility] Last Admin: 05/09/16 09:15 Dose: 200 mls/hr Insulin Aspart (Novolog Vial) 4 units SQ TIDAC [facility] Last Admin: 05/09/16 11:42 Dose: Not Given Insulin Detemir (Levemir Vial) 28 units SQ HS [facility] Last Admin: 05/08/16 21:47 Dose: 28 units Isosorbide Mononitrate (Imdur -) 60 mg PO BID [facility] Last Admin: 05/09/16 09:16 Dose: 60 mg Metoprolol Succinate (Toprol Xl -) 150 mg PO BID [facility] Last Admin: 05/09/16 09:16 Dose: 150 mg Tamsulosin HCl (Flomax -) 0.4 mg PO DAILY@0830 [facility] Last Admin: 05/09/16 08:21 Dose: 0.4 mg A/P 55 year old Gentleman with PMhx of CKD stage 4 with nephrotic proteinuria ( Negative ANNETTA, SPEP), DM Type 2, CHF, CAD, CVA, HLD, Obesity, Afib on Eliquis who presented with 3 day history of decreased urine output, LE swelling and SOB and found to have acute CHF and noted to have Cr rise from 2.9 to 3.6 as an inpatient. #GILLES on CKD Stage 3 ? Overdiuresis vs. Cardio-Renal Syndrome Urine studies indicate pre-renal state that can be seen in volume depletion and CRS Cr remains elevated and pt reports that SOB is resolved and LE edema is improved not currently on diuretics at this time after initially being on IV Lasix Check Bladder scan to r/o retention Trend BUN/Cr #Nephrotic Range Proteinuria Likely from underlying DM but cannot r/o FSGS serologic work up has been negative will need diuretics to prevent volume accumulation #Acute CHF Cardiology following Titrating diuretics based on renal function Steven Wyatt DO
--- NOTE | 2016-05-09 13:24 | PN ---
Progress Note (short form) - Note Progress Note: CC: sob, le edema S: Transitioned to po torsemide yesterday from IV. Dizziness improving. ambulating this morning. no cp, palps, sob. Sees dr cohen for cardio but poor f/u, compliance. Current Medications Apixaban (Eliquis -) 5 mg PO BID [facility] Last Admin: 05/09/16 09:16 Dose: 5 mg Atorvastatin Calcium (Lipitor -) 10 mg PO HS [facility] Last Admin: 05/08/16 21:44 Dose: 10 mg Hydralazine HCl (Apresoline -) 100 mg PO TID [facility] Last Admin: 05/09/16 13:04 Dose: 100 mg Ampicillin Sodium/Sulbactam (Sodium 3 gm/ Sodium Chloride) 100 mls @ 200 mls/ hr IVPB Q8H-IV [facility] Last Admin: 05/09/16 09:15 Dose: 200 mls/hr Insulin Aspart (Novolog Vial) 4 units SQ TIDAC [facility] Last Admin: 05/09/16 11:42 Dose: Not Given Insulin Detemir (Levemir Vial) 28 units SQ [facility] Last Admin: 05/08/16 21:47 Dose: 28 units Isosorbide Mononitrate (Imdur -) 60 mg PO BID [facility] Last Admin: 05/09/16 09:16 Dose: 60 mg Metoprolol Succinate (Toprol Xl -) 150 mg PO BID [facility] Last Admin: 05/09/16 09:16 Dose: 150 mg Tamsulosin HCl (Flomax -) 0.4 mg PO DAILY@0830 [facility] Last Admin: 05/09/16 08:21 Dose: 0.4 mg Vital Signs - 24 hr 05/08/16 05/08/16 05/08/16 14:05 15:20 18:00 Temperature 97.7 F 97.8 F Pulse Rate 99 H 97 H Respiratory 19 Rate Blood Pressure 130/90 108/66 O2 Sat by Pulse 97 Oximetry (%) 05/08/16 05/08/16 05/09/16 21:00 21:31 00:03 Temperature 97.5 F L Pulse Rate 87 Respiratory 22 Rate Blood Pressure 100/77 O2 Sat by Pulse 99 98 Oximetry (%) 05/09/16 05/09/16 05/09/16 02:05 05:30 05:39 Temperature 97 F L 97.4 F L Pulse Rate 90 81 Respiratory 22 20 Rate Blood Pressure 110/68 114/58 O2 Sat by Pulse 98 Oximetry (%) 05/09/16 05/09/16 05/09/16 09:00 10:00 10:20 Temperature 98 F Pulse Rate 86 Respiratory 20 Rate Blood Pressure 120/60 O2 Sat by Pulse 94 L 97 Oximetry (%) 05/09/16 11:28 Temperature Pulse Rate 87 Respiratory Rate Blood Pressure O2 Sat by Pulse 97 Oximetry (%) Intake & Output 05/07/16 05/08/16 05/09/16 05/10/16 07:59 07:59 07:59 07:59 Intake Total 460 630 910 Output Total 900 400 575 Balance -440 230 335 Weight 353 lb 12.8 oz 360 lb 2 oz 326 lb 2 oz Constitutional: Yes: No Distress, Obese Eyes: No: Sclera Icterus HENT: No: Nasal Congestion Respiratory: cta bl nl eff No: Accessory Muscle Use Gastrointestinal: Yes: Normal Bowel Sounds. obese No: Distention, Hepatomegaly, Palpable Mass, tenderness Cardiovascular: Yes: Irregular Rate and Rhythm JVD: tds Carotid Bruit: No PMI: Non-Displaced Heart Sounds: Yes: nl, S1, S2. No: Gallop Murmur: No: Systolic Murmur, Diastolic Murmur Edema: trace LE bl, erythema of shins bl Peripheral Pulses: pos dp pt no carotid bruits Integumentary: No: Jaundice diaphoresis Neurological: Yes: Alert, Oriented (x3) Psychiatric: No: Agitated CBC, BMP 05/09/16 05:35 05/09/16 05:35 EKG 05/05/16: afib, vr 128, nonspecific tw changes, no st changes, no sig change prior CXR: no chf Echo 10/2015: Moderately decreased LV function (global). Nl RV size/fn. 1+ MR. mild-mod TR. mild ao dilation. Trivial effusion. cath 06/2013: 60-70 rpl1, 80-90 d1, subtotal om1 MIBI 08/2014 (pers): no STs; no ischemia seen; predominantly fixed medium-sized inferior/basal inferolat/apico-inferior defect c/w diaphragm attenuation; EF 46% tele: afib, rate controlled, a/p: 55 yo with h/o afib with prior ?embolic CVA 05/2014 ([facility]) right visual field cut, syncope 09/19 with ICH at that time vs other entity on MRI and recurrent syncope 12/2015 (unclear etiology), Non-ischemic cardiomyopathy dx 2013 at [facility], HTN, HPL, Rt carotid stenosis, IDDM, RLE cellulitis s/p debridement, MSSA bacteremia 10/2015, DAMIAN not on home cpap, ckd, who presents with sob, le edema. sob, le edema, acute systolic HF exacerbation, NICM: -Frequent admits for chf, has poor outpt f/u so frequently re-accumulates volume w/o contacting outpt cardio. Was on torsemide 60 qd at home. -dry wt on dc usually around 340-370 lbs -Initially appeared volume overloaded with some worse le edema and diuresed with lasix 80 iv bid which diureses him well in past, daily wts/chemistry. Weight trending down, but creatinine worsening - /: pannus edema and LE edema appears close to baseline. Would decrease diuretic dose back to 40 mg daily and check orthostatics. - 05/08: creatinine not yet improving on decreased diuretics although patient symptomatically better, dizziness improving, able to amulate. Stopped torsemide this morning. Con't close monitoring of daily bmp and standing weights. 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 Contrast enhancing lesion seen 06/19 and the prior heme on MRI were in same location and was thought to be most likely 2/2 post CVA hemorrhagic conversion (i.e. without hi risk for recurrent ICH). Less likely low-grade glioma, which would have very low risk of bleeding if AC resumed--hence the recs at that time were for usual AC considerations for his afib, no special precautions (pt failed repeatedly to f/u with neuro as outpatient, and then worsening renal fxn made him hi risk for morena when here last time). -warfarin changed to eliquis on past admits due to pt's repeated refusal to f/u with cardiology or have reliable INRs and make rec'd coumadin dose change, with worrisome CHADS-VASC 6 = estimated risk 9-10%/year, and hence concern he will stroke again on warfarin. - now on eliquis - Con't home regimen toprol 150 mg bid, rate controlled on tele - 05/07 5-b nsvt. electrolyte repletion prn. monitor for recurrence cad: -managed medically, no angina/ACS/ischemia since -Here with borderline elevation in troponin, flat trend, consistent with prior baseline values. no signs acs, instead likely due to CHF and CKD. -continue home statin, bb, imdur, hydralazine -con't to defer ASA as pt with stable CAD in past and also on AC R carotid stenosis: -ADRIENNE with PSV in high 200s cm/sec here, suspicious for >70% stenosis per radiology report -vascular surgery c/s on prior admit felt stenosis is at MOST 70% (deferred further imaging with contrast due to low GFR). Recommended deferring CEA unless imaging suggested >80% stenosis, or if he developed symptoms/acute cerebrovascular event. Ao dilation - Con't bb. Routine outpatient surveillance CKD: - baseline cr 2.5-2.6 - worsened with diuresis, 4/2 may be overdiuresed - decreasing diuretic dose DAMIAN not on home cpap - CPAP as needed.
--- NOTE | 2016-05-09 13:54 | PN ---
Progress Note, Physician History of Present Illness: patient continues to improve no new issues legs looking better - Current Medication List Current Medications: Active Medications Apixaban (Eliquis -) 5 mg PO BID [facility] Last Admin: 05/09/16 09:16 Dose: 5 mg Atorvastatin Calcium (Lipitor -) 10 mg PO HS [facility] Last Admin: 05/08/16 21:44 Dose: 10 mg Hydralazine HCl (Apresoline -) 100 mg PO TID [facility] Last Admin: 05/09/16 13:04 Dose: 100 mg Ampicillin Sodium/Sulbactam (Sodium 3 gm/ Sodium Chloride) 100 mls @ 200 mls/ hr IVPB Q8H-IV [facility] Last Admin: 05/09/16 09:15 Dose: 200 mls/hr Insulin Aspart (Novolog Vial) 4 units SQ TIDAC [facility] Last Admin: 05/09/16 11:42 Dose: Not Given Insulin Detemir (Levemir Vial) 28 units SQ [facility] Last Admin: 05/08/16 21:47 Dose: 28 units Isosorbide Mononitrate (Imdur -) 60 mg PO BID [facility] Last Admin: 05/09/16 09:16 Dose: 60 mg Metoprolol Succinate (Toprol Xl -) 150 mg PO BID [facility] Last Admin: 05/09/16 09:16 Dose: 150 mg Tamsulosin HCl (Flomax -) 0.4 mg PO DAILY@0830 [facility] Last Admin: 05/09/16 08:21 Dose: 0.4 mg - Objective Vital Signs: Vital Signs Temperature 98 F 05/09/16 10:00 Pulse Rate 87 05/09/16 11:28 Respiratory Rate 20 05/09/16 10:00 Blood Pressure 120/60 05/09/16 10:00 O2 Sat by Pulse Oximetry (%) 97 05/09/16 11:28 Constitutional: Yes: No Distress Neck: Yes: Supple Cardiovascular: Yes: Regular Rate and Rhythm Respiratory: Yes: Regular, CTA Bilaterally Gastrointestinal: Yes: Normal Bowel Sounds, Soft Musculoskeletal: Yes: Other Extremities: Yes: Erythema Neurological: Yes: Alert, Oriented Psychiatric: Yes: Alert Labs: CBC, BMP 05/09/16 05:35 05/09/16 05:35 INR, PTT INR 1.33 (0.82-1.09) H 05/05/16 16:42 Assessment/Plan Problem List - Problem (1) atrial fibrillation (2) Acute exacerbation of CHF (congestive heart failure) Code(s): I50.9 - HEART FAILURE, UNSPECIFIED (3) Systolic and diastolic CHF, acute on chronic Code(s): I50.43 - ACUTE ON CHRONIC COMBINED SYSTOLIC AND DIASTOLIC HRT FAIL (4) Dyspnea on exertion Code(s): R06.09 - OTHER FORMS OF DYSPNEA (5) Acute on chronic renal failure Code(s): N17.9 - ACUTE KIDNEY FAILURE, UNSPECIFIED N18.9 - CHRONIC KIDNEY DISEASE, UNSPECIFIED (6) Lower extremity edema Code(s): R60.0 - LOCALIZED EDEMA (7) CAD (coronary artery disease) Code(s): I25.10 - ATHSCL HEART DISEASE OF [place] CORONARY ARTERY W/O ANG PCTRS (8) Diabetes mellitus Code(s): E11.9 - TYPE 2 DIABETES MELLITUS WITHOUT COMPLICATIONS (9) Hypertension Code(s): I10 - ESSENTIAL (PRIMARY) HYPERTENSION bilateral cellulitis of the legs plan elevation of the legs continue unasyn will switch to oral on rest ct monitoring
--- NOTE | 2016-05-09 15:13 | PN ---
Physical Exam: SUBJECTIVE: Patient seen and examined. Feeling much better. Only mild SOB when laying flat, which improves with BiPAP. States legs and edema much improved as well. OBJECTIVE: Vital Signs - 24 hr 3 05/08/16 05/08/16 05/08/16 15:20 18:00 21:00 Temperature 97.7 F 97.8 F Pulse Rate 99 H 97 H Respiratory 19 Rate Blood Pressure 130/90 108/66 O2 Sat by Pulse 99 Oximetry (%) 3 05/08/16 05/09/16 05/09/16 21:31 00:03 02:05 Temperature 97.5 F L 97 F L Pulse Rate 87 90 Respiratory 22 22 Rate Blood Pressure 100/77 110/68 O2 Sat by Pulse 98 Oximetry (%) 05/09/16 05/09/16 05/09/16 05:30 05:39 09:00 Temperature 97.4 F L Pulse Rate 81 Respiratory 20 Rate Blood Pressure 114/58 O2 Sat by Pulse 98 94 L Oximetry (%) 05/09/16 05/09/16 05/09/16 10:00 10:20 11:28 Temperature 98 F Pulse Rate 86 87 Respiratory 20 Rate Blood Pressure 120/60 O2 Sat by Pulse 97 97 Oximetry (%) 3 05/09/16 14:00 Temperature 98.6 F Pulse Rate 91 H Respiratory 20 Rate Blood Pressure 135/64 O2 Sat by Pulse Oximetry (%) GENERAL: The patient is awake, alert, and fully oriented, in no acute distress. HEAD: Normal with no signs of trauma. EYES: PERRL, extraocular movements intact, sclera anicteric, conjunctiva clear. No ptosis. ENT: Ears normal, nares patent, oropharynx clear without exudates, moist mucous membranes. NECK: Trachea midline, full range of motion, supple. LUNGS: Breath sounds equal, clear to auscultation bilaterally, no wheezes, no crackles, no accessory muscle use. HEART: Regular rate and rhythm, S1, S2 without murmur, rub or gallop. ABDOMEN: Soft, nontender, nondistended, normoactive bowel sounds, no guarding, no rebound, no hepatosplenomegaly, no masses. EXTREMITIES: 2+ pulses, warm, well-perfused, tr edema bilat lower extremities, pannus with tr-1+ edema which patient states is baseline. NEUROLOGICAL: Cranial nerves II through XII grossly intact. Normal speech, gait not observed. PSYCH: Normal mood, normal affect. SKIN: Warm, dry, normal turgor, no rashes or lesions noted Laboratory Results - last 24 hr 3 05/08/16 05/08/16 05/09/16 16:45 21:50 05:35 WBC RBC Hgb Hct MCV MCHC RDW Plt Count MPV Neutrophils % Lymphocytes % Monocytes % Eosinophils % Basophils % Sodium 138 Potassium 3.7 Chloride 98 Carbon Dioxide 24 Anion Gap 16 BUN 61 H Creatinine 3.7 H Creat Clearance w eGFR 17.27 POC Glucometer 116 Random Glucose 73 L D Lactic Acid Calcium 7.7 L Phosphorus 6.6 H D Magnesium 2.5 H Total Bilirubin 1.0 D AST 25 ALT 12 D Alkaline Phosphatase 160 H Total Protein 6.1 L Albumin 2.5 L Ur Random Sodium Ur Random Urea Nitrogn 548 Urine Creatinine 3 05/09/16 05/09/16 05/09/16 05/09/16 05:35 05:35 05:56 11:39 WBC 13.1 H RBC 4.27 Hgb 12.5 Hct 38.3 MCV 89.6 MCHC 32.5 RDW 19.2 H Plt Count 219 MPV 8.0 Neutrophils % 76.8 Lymphocytes % 9.6 Monocytes % 10.2 Eosinophils % 2.7 Basophils % 0.7 Sodium Potassium Chloride Carbon Dioxide Anion Gap BUN Creatinine Creat Clearance w eGFR POC Glucometer 91 108 Random Glucose Lactic Acid 0.633 Calcium Phosphorus Magnesium Total Bilirubin AST ALT Alkaline Phosphatase Total Protein Albumin Ur Random Sodium Ur Random Urea Nitrogn Urine Creatinine Active Medications 3 Generic Name Dose Route Start Last Admin Trade Name Raphaelq PRN Reason Stop Dose Admin Apixaban 5 mg 05/05/16 22:00 05/09/16 09:16 Eliquis - PO 5 mg BID ANURADHA Administration Atorvastatin Calcium 10 mg 05/05/16 22:00 05/08/16 21:44 Lipitor - PO 10 mg HS ANURADHA Administration Hydralazine HCl 100 mg 05/05/16 22:00 05/09/16 13:04 Apresoline - PO 100 mg TID ANURADHA Administration Ampicillin Sodium/Sulbactam 100 mls @ 200 mls/hr 05/06/16 18:00 05/09/16 09:15 Sodium 3 gm/ Sodium Chloride IVPB 200 mls/hr Q8H-IV ANURADHA Administration Insulin Aspart 4 units 05/06/16 07:00 05/09/16 11:42 Novolog Vial SQ Not Given TIDAC ANURADHA Insulin Detemir 28 units 05/05/16 22:00 05/08/16 21:47 Levemir Vial SQ 28 units HS ANURADHA Administration Isosorbide Mononitrate 60 mg 05/05/16 22:00 05/09/16 09:16 Imdur - PO 60 mg BID ANURADHA Administration Metoprolol Succinate 150 mg 05/05/16 22:00 05/09/16 09:16 Toprol Xl - PO 150 mg BID ANURADHA Administration Tamsulosin HCl 0.4 mg 05/06/16 08:30 05/09/16 08:21 Flomax - PO 0.4 mg DAILY@0830 ANURADHA Administration ASSESSMENT/PLAN: This is a 55 year old male with PMHx of A.fib (on eliquis), CAD, CHF, CVA ( ischemic 05/20, 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 He has been admitted for LE cellulitis and ACS r/o. Chest pain - resolved, mild elevation in troponin likely CHF and CKD, not ACS. - cont medical management, Statin, BB, imdur, hydralazine Acute sytolic HF exacerbation, NICM - appears back to his baseline fluid/volume status, currently off diuretics. - cont BB, imdur/hydralazine - not on DENISSE/ARB due to CKD - cont daily weights. Afib - rate controlled, cont toprol - cont eliquis for CVA PPX dizziness - carotid dopplers without hemodynamically significant stenosis. cellulitis -cont unasyn through as per ID; improving with same. CKD - Cr 3.7, continues to worsen - bladder scan as per renal - cont to monitor urine output and BUN/Cr. IDDM - cont levemir and novolog DAMIAN - cont bipap, encouraged to utilize at home as well (states he has home machine) FEN - tolerating po liquids - cont to monitor BMP - Diabetic/low sodium diet Dispo: Pt continues to require inpatient care. Visit type - Emergency Visit Emergency Visit: Yes ED Registration Date: 03/31/17 Care time: The patient presented to the Emergency Department on the above date and was hospitalized for further evaluation of their emergent condition. - New Patient This patient is new to me today: Yes Date on this admission: 05/09/16 - Critical Care Critical Care patient: No - Discharge Referral Referred to [facility] No
--- NOTE | 2016-05-09 17:43 | EKG ---
Test Reason : Blood Pressure : / mmHG Vent. Rate : 093 BPM Atrial Rate : 074 BPM P-R Int : 000 ms QRS Dur : 102 ms QT Int : 432 ms P-R-T Axes : 000 170 103 degrees QTc Int : 537 ms ATRIAL FIBRILLATION RIGHT AXIS DEVIATION INCOMPLETE RIGHT BUNDLE BRANCH BLOCK ABNORMAL ECG WHEN COMPARED WITH ECG OF 05-MAY-2016 17:59, T WAVE VARIATION Confirmed by JAZ COKER MD ([id number]) on 05/09/2016 5:42:59 PM Referred By: Confirmed By:JAZ COKER MD
[2016-05-09] MEDS: INSULIN DETEMIR 100 UNITS/ML MDV SQ SCH (21:32)
[2016-05-09] MEDS: ATORVASTATIN CA 10 MG TABLET (FP) PO SCH (21:32)
[2016-05-10] MEDS ORDERED: PT OWN MED DRAWER 7, Y5N ONE (01:41)
[2016-05-10] MEDS: AMPICILLIN NA/SULBACTAM NA 3 GM in SODIUM CHLORIDE 100 ML IVPB SCH ×3 (02:06→17:16)
[2016-05-10] MEDS: hydrALAZINE HCL 50 MG TABLET (FP) PO SCH ×3 (06:09→21:31)
[2016-05-10] MEDS: INSULIN (NOVOLOG) ASPART 100 UNITS/ML 10ML VIAL SQ SCH ×3 (06:09→17:14)
[2016-05-10 08:33] LABS: CALCIUM 7.6 mg/dL (8.5-10.1); CREATININE 3.5 mg/dL (0.7-1.3); MAGNESIUM 2.6 mg/dL (1.8-2.4)
[2016-05-10] MEDS: ISOSORBIDE MONONITRATE 60 MG TAB.SR.24H (FP) PO SCH ×2 (09:32→21:31)
[2016-05-10] MEDS: TAMSULOSIN HCL 0.4 MG CAP.ER.24H (FP) PO SCH (09:32)
[2016-05-10] MEDS: APIXABAN 5 MG TABLET PO SCH ×2 (09:32→21:31)
[2016-05-10] MEDS: METOPROLOL SUCCINATE 100 MG TAB.SR.24H (FP) PO SCH ×2 (09:32→21:31)
--- NOTE | 2016-05-10 10:39 | PN ---
Progress Note (short form) - Note Progress Note: s: no cp sob palps dizzy; feels tired today o: Vital Signs Period Temp Pulse Resp BP Sys/Perez Pulse Ox Last 24 Hr 97.3 F-98.6 F 80-102 20-20 108-135/64-83 93-98 Constitutional: Yes: No Distress, Obese Eyes: No: Sclera Icterus HENT: No: Nasal Congestion Respiratory: cta bl nl eff No: Accessory Muscle Use Gastrointestinal: Yes: Normal Bowel Sounds. obese No: Distention, Hepatomegaly, Palpable Mass, tenderness Cardiovascular: Yes: Irregular Rate and Rhythm JVD: tds Heart Sounds: Yes: nl, S1, S2. No: Gallop Murmur: No: Systolic Murmur, Diastolic Murmur Edema: trace LE bl, erythema of shins bl Integumentary: No: Jaundice diaphoresis Neurological: Yes: Alert, Oriented (x3) Psychiatric: No: Agitated Current Medications Generic Name Dose Route Start Last Admin Trade Name Freq PRN Reason Stop Dose Admin Apixaban 5 mg 05/05/16 22:00 05/10/16 09:32 Eliquis - PO 5 mg BID ANURADHA Administration Atorvastatin Calcium 10 mg 05/05/16 22:00 05/09/16 21:32 Lipitor - PO 10 mg HS ANURADHA Administration Hydralazine HCl 100 mg 05/05/16 22:00 05/10/16 06:09 Apresoline - PO 100 mg TID ANURADHA Administration Ampicillin Sodium/Sulbactam 100 mls @ 200 mls/hr 05/06/16 18:00 05/10/16 09:44 Sodium 3 gm/ Sodium Chloride IVPB 200 mls/hr Q8H-IV ANURADHA Administration Insulin Aspart 4 units 05/09/16 18:02 05/10/16 06:09 Novolog Vial SQ 4 units TIDAC ANURADHA Administration Insulin Detemir 28 units 05/05/16 22:00 05/09/16 21:32 Levemir Vial SQ 28 units HS ANURADHA Administration Isosorbide Mononitrate 60 mg 05/05/16 22:00 05/10/16 09:32 Imdur - PO 60 mg BID ANURADHA Administration Metoprolol Succinate 150 mg 05/05/16 22:00 05/10/16 09:32 Toprol Xl - PO 150 mg BID ANURADHA Administration Tamsulosin HCl 0.4 mg 05/06/16 08:30 05/10/16 09:32 Flomax - PO 0.4 mg DAILY@0830 ANURADHA Administration CBC, BMP 05/09/16 05:35 05/10/16 05:35 EKG 05/05/16: afib, vr 128, nonspecific tw changes, no st changes, no sig change prior CXR: no chf Echo 10/2015: Moderately decreased LV function (global). Nl RV size/fn. 1+ MR. mild-mod TR. mild ao dilation. Trivial effusion. cath 06/2013: 60-70 rpl1, 80-90 d1, subtotal om1 MIBI 08/2014 (pers): no STs; no ischemia seen; predominantly fixed medium-sized inferior/basal inferolat/apico-inferior defect c/w diaphragm attenuation; EF 46% tele: afib, rate controlled a/p: 55 yo with h/o afib with prior ?embolic CVA 05/2014 ([facility]) right visual field cut, syncope 09/19 with ICH at that time vs other entity on MRI and recurrent syncope 12/2015 (unclear etiology), Non-ischemic cardiomyopathy dx 2013 at [facility], HTN, HPL, Rt carotid stenosis, IDDM, RLE cellulitis s/p debridement, MSSA bacteremia 10/2015, DAMIAN not on home cpap, ckd, who presents with sob, le edema. sob, le edema, acute systolic HF exacerbation, NICM: -Frequent admits for chf, has poor outpt f/u so frequently re-accumulates volume w/o contacting outpt cardio. Was on torsemide 60 qd at home. -dry wt on dc usually around 340-370 lbs -Initially appeared volume overloaded with some worse le edema and diuresed with lasix 80 iv bid which diureses him well in past, daily wts/chemistry. Weight trending down, but creatinine worsening - 4/2: pannus edema and LE edema appears close to baseline. Would decrease diuretic dose back to 40 mg daily and check orthostatics. - /3: creatinine not yet improving on decreased diuretics although patient symptomatically better, dizziness improving, able to ambulate. Stopped torsemide this morning. Con't close monitoring of daily bmp and standing weights. - 05/10: cr improving while holding diuretic, likely be able to resume po torsemide tomorrow - cont home LV dysfxn regimen: bb, imdur/hydralazine (not on kaylan/arb 2/2 ckd) Afib, h/o ischemic cva 05/20, - hemorrhagic CVA 06/19 (Imaging read as ICH or mass lesion): - case discussed with neuro in detail on prior admissions. Contrast enhancing lesion seen 06/19 and the prior heme on MRI were in same location and was thought to be most likely 2/2 post CVA hemorrhagic conversion (i.e. without hi risk for recurrent ICH). Less likely low-grade glioma, which would have very low risk of bleeding if AC resumed--hence the recs at that time were for usual AC considerations for his afib, no special precautions (pt failed repeatedly to f/u with neuro as outpatient, and then worsening renal fxn made him hi risk for morena when here last time). -warfarin changed to eliquis on past admits due to pt's repeated refusal to f/u with cardiology or have reliable INRs and make rec'd coumadin dose change, with worrisome CHADS-VASC 6 = estimated risk 9-10%/year, and hence concern he will stroke again on warfarin. - now on eliquis - Con't home regimen toprol 150 mg bid, rate controlled on tele cad: -managed medically, no angina/ACS/ischemia since -Here with borderline elevation in troponin, flat trend, consistent with prior baseline values. no signs acs, instead likely due to CHF and CKD. -continue home statin, bb, imdur, hydralazine -con't to defer ASA as pt with stable CAD in past and also on AC R carotid stenosis: -ADRIENNE with PSV in high 200s cm/sec here, suspicious for >70% stenosis per radiology report -vascular surgery c/s on prior admit felt stenosis is at MOST 70% (deferred further imaging with contrast due to low GFR). Recommended deferring CEA unless imaging suggested >80% stenosis, or if he developed symptoms/acute cerebrovascular event. Ao dilation - Con't bb. Routine outpatient surveillance CKD: - baseline cr 2.5-2.6 - worsened with diuresis, 4/2 may be overdiuresed - decreasing diuretic dose as above DAMIAN not on home cpap - CPAP as needed.
--- NOTE | 2016-05-10 11:45 | PN ---
Progress Note (short form) - Note Progress Note: Renal Follow up for GILLES on CKD Pt seen and examined at the bedside states that breathing is at his baseline no sob or chest pain LE swelling also improved weights increased Vital Signs Temperature 98 F 05/10/16 10:00 Pulse Rate 96 H 05/10/16 10:00 Respiratory Rate 20 05/10/16 10:00 Blood Pressure 110/66 05/10/16 10:00 O2 Sat by Pulse Oximetry (%) 94 L 05/10/16 09:00 Intake & Output 05/07/16 05/08/16 05/09/16 05/10/16 23:59 23:59 23:59 23:59 Intake Total 630 790 220 Output Total 700 575 Balance -70 215 220 Weight 353 lb 12.8 oz 360 lb 2 oz 362 lb 2 oz 365 lb 4 oz Gen: NAD, on Room air CVS: RRR, No M/R Lungs: Dec BS throughout the lung person, no rales Abd: soft NT/ND, Obese Ext: No edema, clubbing or cyanosis CBC, BMP 05/09/16 05:35 05/10/16 05:35 Laboratory Tests 05/10/16 05:35 Calcium 7.6 L Phosphorus 6.0 H Magnesium 2.6 H Current Medications Apixaban (Eliquis -) 5 mg PO BID [facility] Last Admin: 05/10/16 09:32 Dose: 5 mg Atorvastatin Calcium (Lipitor -) 10 mg PO HS [facility] Last Admin: 05/09/16 21:32 Dose: 10 mg Hydralazine HCl (Apresoline -) 100 mg PO TID [facility] Last Admin: 05/10/16 06:09 Dose: 100 mg Ampicillin Sodium/Sulbactam (Sodium 3 gm/ Sodium Chloride) 100 mls @ 200 mls/ hr IVPB Q8H-IV [facility] Last Admin: 05/10/16 09:44 Dose: 200 mls/hr Insulin Aspart (Novolog Vial) 4 units SQ TIDAC [facility] Last Admin: 05/10/16 11:40 Dose: 4 units Insulin Detemir (Levemir Vial) 28 units SQ HS [facility] Last Admin: 05/09/16 21:32 Dose: 28 units Isosorbide Mononitrate (Imdur -) 60 mg PO BID [facility] Last Admin: 05/10/16 09:32 Dose: 60 mg Metoprolol Succinate (Toprol Xl -) 150 mg PO BID [facility] Last Admin: 05/10/16 09:32 Dose: 150 mg Tamsulosin HCl (Flomax -) 0.4 mg PO DAILY@0830 [facility] Last Admin: 05/10/16 09:32 Dose: 0.4 mg A/P 55 year old Gentleman with PMhx of CKD stage 4 with nephrotic proteinuria ( Negative ANNETTA, SPEP), DM Type 2, CHF, CAD, CVA, HLD, Obesity, Afib on Eliquis who presented with 3 day history of decreased urine output, LE swelling and SOB and found to have acute CHF and noted to have Cr rise from 2.9 to 3.6 as an inpatient. #GILLES on CKD Stage 4 Renal function with mild improvement off IV diuretics agree that he can most likely resume oral Toresemide tomorrow Trend BUN/Cr #Nephrotic Range Proteinuria Likely from underlying DM but cannot r/o FSGS serologic work up has been negative will need diuretics to prevent volume accumulation #Acute CHF Cardiology following Titrating diuretics based on renal function Steven Wyatt DO
--- NOTE | 2016-05-10 16:37 | PN ---
Physical Exam: SUBJECTIVE: Patient seen and examined. C/o feeling tired and weak today. Reports that he did not sleep well last night. No specific complaints. Denies CP , SOB. OBJECTIVE: Vital Signs - 24 hr 3 05/09/16 05/09/16 05/10/16 05/10/16 17:55 21:00 02:03 06:00 Temperature 97.6 F 98.2 F 97.3 F L 97.9 F Pulse Rate 80 94 H 96 H 102 H Respiratory 20 20 20 20 Rate Blood Pressure 108/74 133/82 118/83 117/73 O2 Sat by Pulse 93 L Oximetry (%) 3 05/10/16 05/10/16 05/10/16 05/10/16 09:00 10:00 10:45 13:48 Temperature 98 F 97.9 F Pulse Rate 96 H 87 89 Respiratory 20 20 Rate Blood Pressure 110/66 128/51 O2 Sat by Pulse 94 L 97 Oximetry (%) GENERAL: The patient is awake, alert, and fully oriented, in no acute distress. HEAD: Normal with no signs of trauma. EYES: PERRL, extraocular movements intact, sclera anicteric, conjunctiva clear. No ptosis. ENT: Ears normal, nares patent, oropharynx clear without exudates, moist mucous membranes. NECK: Trachea midline, full range of motion, supple. LUNGS: Breath sounds equal, clear to auscultation bilaterally, no wheezes, no crackles, no accessory muscle use. HEART: Regular rate and rhythm, S1, S2 without murmur, rub or gallop. ABDOMEN: Soft, nontender, nondistended, normoactive bowel sounds, no guarding, no rebound, no hepatosplenomegaly, no masses. EXTREMITIES: 2+ pulses, warm, well-perfused, 1+edema b/l LE and pannus, + erythema / hemosiderin staining bilat lower legs, no excessive warmth or discharge NEUROLOGICAL: Cranial nerves II through XII grossly intact. Normal speech, gait not observed. PSYCH: Normal mood, normal affect. SKIN: Warm, dry, normal turgor, no rashes or lesions noted Laboratory Results - last 24 hr 3 05/09/16 05/09/16 05/10/16 16:59 21:31 05:35 Sodium 137 Potassium 3.7 Chloride 97 L Carbon Dioxide 25 Anion Gap 15 BUN 64 H Creatinine 3.5 H POC Glucometer 133 157 Random Glucose 94 D Calcium 7.6 L Phosphorus 6.0 H Magnesium 2.6 H 3 05/10/16 05/10/16 05/10/16 05:55 11:38 15:47 Sodium Potassium Chloride Carbon Dioxide Anion Gap BUN Creatinine POC Glucometer 99 133 161 Random Glucose Calcium Phosphorus Magnesium Active Medications 3 Generic Name Dose Route Start Last Admin Trade Name Freq PRN Reason Stop Dose Admin Apixaban 5 mg 05/05/16 22:00 05/10/16 09:32 Eliquis - PO 5 mg BID ANURADHA Administration Atorvastatin Calcium 10 mg 05/05/16 22:00 05/09/16 21:32 Lipitor - PO 10 mg HS ANURADHA Administration Hydralazine HCl 100 mg 05/05/16 22:00 05/10/16 13:28 Apresoline - PO 100 mg TID ANURADHA Administration Ampicillin Sodium/Sulbactam 100 mls @ 200 mls/hr 05/06/16 18:00 05/10/16 09:44 Sodium 3 gm/ Sodium Chloride IVPB 200 mls/hr Q8H-IV ANURADHA Administration Insulin Aspart 4 units 05/09/16 18:02 05/10/16 11:40 Novolog Vial SQ 4 units TIDAC ANURADHA Administration Insulin Detemir 28 units 05/05/16 22:00 05/09/16 21:32 Levemir Vial SQ 28 units HS ANURADHA Administration Isosorbide Mononitrate 60 mg 05/05/16 22:00 05/10/16 09:32 Imdur - PO 60 mg BID ANURADHA Administration Metoprolol Succinate 150 mg 05/05/16 22:00 05/10/16 09:32 Toprol Xl - PO 150 mg BID ANURADHA Administration Tamsulosin HCl 0.4 mg 05/06/16 08:30 05/10/16 09:32 Flomax - PO 0.4 mg DAILY@0830 ANURADHA Administration ASSESSMENT/PLAN: This is a 55 year old male with PMHx of A.fib (on eliquis), CAD, CHF, CVA ( ischemic 05/20, 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 He has been admitted for LE cellulitis and ACS r/o. Chest pain - resolved, mild elevation in troponin likely CHF and CKD, not ACS. - cont medical management, Statin, BB, imdur, hydralazine Acute sytolic HF exacerbation, NICM - appears back to his baseline fluid/volume status, currently off diuretics. - cont BB, imdur/hydralazine - not on DENISSE/ARB due to CKD - cont daily weights. trending up, restart torsemide in am if Cr continuing to improve Afib - rate controlled, cont toprol - cont eliquis for CVA PPX dizziness - improved - carotid dopplers without hemodynamically significant stenosis. cellulitis -cont unasyn through as per ID; improving with same. CKD - Cr 3.5, slight improvement - renal / bladder sono essentially WNL, PVR 38 - cont to monitor urine output and BUN/Cr. - hyperphosphatemia present. low phosphorous diet. IDDM - FSBS well controlled. cont levemir and novolog DAMIAN - cont bipap, encouraged to utilize at home as well (states he has home machine) FEN - tolerating po liquids - cont to monitor BMP - Diabetic/low sodium/ low phos diet Dispo: Pt continues to require inpatient care. Visit type - Emergency Visit Emergency Visit: Yes ED Registration Date: 05/05/16 Care time: The patient presented to the Emergency Department on the above date and was hospitalized for further evaluation of their emergent condition. - New Patient This patient is new to me today: No - Critical Care Critical Care patient: No - Discharge Referral Referred to [facility] Med [facility].C.: No
[2016-05-10] MEDS: ATORVASTATIN CA 10 MG TABLET (FP) PO SCH (21:31)
[2016-05-10] MEDS: INSULIN DETEMIR 100 UNITS/ML MDV SQ SCH (21:31)
[2016-05-11] MEDS ORDERED: PT OWN MED DRAWER 7, Y5N ONE ×2 (01:43→08:47)
[2016-05-11] MEDS: AMPICILLIN NA/SULBACTAM NA 3 GM in SODIUM CHLORIDE 100 ML IVPB SCH ×2 (01:59→09:19)
[2016-05-11] MEDS: INSULIN (NOVOLOG) ASPART 100 UNITS/ML 10ML VIAL SQ SCH ×3 (06:10→17:21)
[2016-05-11] MEDS: hydrALAZINE HCL 50 MG TABLET (FP) PO SCH ×3 (06:10→21:17)
[2016-05-11 08:08] LABS: BASOPHIL 0.7 % (0-2.0); EOSINOPHIL 2.5 % (0-4.5); MCH 29.1 pg (25.7-33.7); MCHC 32.7 g/dl (32.0-35.9); MEAN PLT VOLUME 8.3 fl (7.5-11.1); PLATELET COUNT 222 K/MM3 (134-434); RDW 18.9 % (11.9-15.9); WHITE BLOOD COUNT 12.7 K/mm3 (4.0-10.0)
[2016-05-11 08:29] LABS: CALCIUM 7.6 mg/dL (8.5-10.1); CREATININE 3.5 mg/dL (0.7-1.3); MAGNESIUM 2.7 mg/dL (1.8-2.4); PHOSPHOROUS 6.2 mg/dL (2.5-4.9)
[2016-05-11] MEDS: ISOSORBIDE MONONITRATE 60 MG TAB.SR.24H (FP) PO SCH ×2 (09:20→21:18)
[2016-05-11] MEDS: APIXABAN 5 MG TABLET PO SCH ×2 (09:20→21:18)
[2016-05-11] MEDS: TAMSULOSIN HCL 0.4 MG CAP.ER.24H (FP) PO SCH (09:20)
[2016-05-11] MEDS: METOPROLOL SUCCINATE 100 MG TAB.SR.24H (FP) PO SCH ×2 (09:20→21:18)
--- NOTE | 2016-05-11 12:01 | PN ---
Progress Note (short form) - Note Progress Note: Subjective: The patient was seen and examined at the bedside, he reports feeling better today. Denies any dizziness. Restarted on Torsemide today Monitor kidney function Current Medications Generic Name Dose Route Start Last Admin Trade Name Brianna PRN Reason Stop Dose Admin Apixaban 5 mg 05/05/16 22:00 05/11/16 09:20 Eliquis - PO 5 mg BID ANURADHA Administration Atorvastatin Calcium 10 mg 05/05/16 22:00 05/10/16 21:31 Lipitor - PO 10 mg HS ANURADHA Administration Hydralazine HCl 100 mg 05/05/16 22:00 05/11/16 06:10 Apresoline - PO 100 mg TID ANURADHA Administration Ampicillin Sodium/Sulbactam 100 mls @ 200 mls/hr 05/06/16 18:00 05/11/16 09:19 Sodium 3 gm/ Sodium Chloride IVPB 200 mls/hr Q8H-IV ANURADHA Administration Insulin Aspart 4 units 05/09/16 18:02 05/11/16 06:10 Novolog Vial SQ Not Given TIDAC [facility] Insulin Detemir 28 units 05/05/16 22:00 05/10/16 21:31 Levemir Vial SQ 28 units HS ANURADHA Administration Isosorbide Mononitrate 60 mg 05/05/16 22:00 05/11/16 09:20 Imdur - PO 60 mg BID ANURADHA Administration Metoprolol Succinate 150 mg 05/05/16 22:00 05/11/16 09:20 Toprol Xl - PO 150 mg BID ANURADHA Administration Tamsulosin HCl 0.4 mg 05/06/16 08:30 05/11/16 09:20 Flomax - PO 0.4 mg DAILY@0830 ANURADHA Administration Torsemide 40 mg 05/11/16 10:00 Demadex - PO DAILY [facility] Objective: Vital Signs Period Temp Pulse Resp BP Sys/Perez Pulse Ox Last 24 Hr 97.3 F-98 F 78-92 20-22 119-135/51-90 95-96 Physical Exam: General: Morbidly obese Lungs: CTA bilaterally Heart: Irregular rate and rhythm Abd: Soft, non-tender, non-distended. Normoactive bowel sounds Ext: 1+ B/l lower extremity edema, b/l [place] extremity erythema, improving. Left knee abrasion Neuro: CN 2-12 intact CBCD WBC 12.7 K/mm3 (4.0-10.0) H 05/11/16 05:50 RBC 4.33 M/mm3 (4.00-5.60) 05/11/16 05:50 Hgb 12.6 GM/dL (11.7-16.9) 05/11/16 05:50 Hct 38.5 % (35.4-49) 05/11/16 05:50 MCV 89.0 fl (80-96) 05/11/16 05:50 MCHC 32.7 g/dl (32.0-35.9) 05/11/16 05:50 RDW 18.9 % (11.9-15.9) H 05/11/16 05:50 Plt Count 222 K/MM3 (134-434) 05/11/16 05:50 MPV 8.3 fl (7.5-11.1) 05/11/16 05:50 CMP Sodium 139 mmol/L (136-145) 05/11/16 05:50 Potassium 3.9 mmol/L (3.5-5.1) 05/11/16 05:50 Chloride 101 mmol/L (98-107) 05/11/16 05:50 Carbon Dioxide 23 mmol/L (21-32) 05/11/16 05:50 Anion Gap 15 (8-16) 05/11/16 05:50 BUN 65 mg/dL (7-18) H 05/11/16 05:50 Creatinine 3.5 mg/dL (0.7-1.3) H 05/11/16 05:50 Creat Clearance w eGFR 17.27 (>60) 05/09/16 05:35 Random Glucose 93 mg/dL (74-106) 05/11/16 05:50 Calcium 7.6 mg/dL (8.5-10.1) L 05/11/16 05:50 Total Bilirubin 1.0 mg/dL (0.2-1.0) D 05/09/16 05:35 AST 25 U/L (15-37) 05/09/16 05:35 ALT 12 U/L (12-78) D 05/09/16 05:35 Alkaline Phosphatase 160 U/L (45-117) H 05/09/16 05:35 Total Protein 6.1 g/dl (6.4-8.2) L 05/09/16 05:35 Albumin 2.5 g/dl (3.4-5.0) L 05/09/16 05:35 CARDIAC ENZYMES Creatine Kinase 208 IU/L (39-308) 05/08/16 06:00 Troponin I 0.08 ng/ml (0.00-0.05) H 05/08/16 06:00 Assessment: This is a 55 year old male with PMHx of A.fib (on eliquis), CAD, CHF , 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 Plan: 1) Cardiology: chest pain - Borderline elevation in troponin, trended down - No current signs of ACS - Continue Lipitor - Continue Imdur - Continue hydralazine - Appreciate cardiology consult Acute systolic heart failure exacerbation - B/l lower extremity edema improving - Started on Torsemide this AM - Bipap at night, DAMIAN but is non-compliant at home - Repeat ECHO reviewed - Daily weights - Strict I&O A.fib - Continue Eliquis - Rate controlled on Metoprolol XL - Appreciate cardiology consult Dizziness - Carotid dopplers reviewed 2) : CKD - Cr 3.5, worsening from baseline - Continue to monitor - Appreciate nephrology consult 3) ID: B/l lower extremity edema, erythema, cellulitis - B/l lower extremity doppler negative for DVT - Leukocytosis - Continue Unasyn - Appreciate ID consult 4) Endocrine: IDDM - BGM ACHS - Novolog 4u sq tidac - Levemir 28u sq qhs 5) F/E/N: - Diabetic low sodium diet - Monitor electrolytes 6) Prophylaxis: - On Eliquis - OOB ambulating 7) Dispo: - Requires continued inpatient care CODE STATUS: FULL CODE Visit type - Emergency Visit Emergency Visit: Yes ED Registration Date: 05/05/16 Care time: The patient presented to the Emergency Department on the above date and was hospitalized for further evaluation of their emergent condition. - New Patient This patient is new to me today: No - Critical Care Critical Care patient: No
--- NOTE | 2016-05-11 12:10 | PN ---
Progress Note (short form) - Note Progress Note: s: no cp sob palps dizzy o: Vital Signs Period Temp Pulse Resp BP Sys/Perez Pulse Ox Last 24 Hr 97.3 F-98 F 78-92 20-22 119-135/51-90 95-96 Constitutional: Yes: No Distress, Obese Eyes: No: Sclera Icterus HENT: No: Nasal Congestion Respiratory: cta bl nl eff No: Accessory Muscle Use Gastrointestinal: Yes: Normal Bowel Sounds. obese No: Distention, Hepatomegaly, Palpable Mass, tenderness Cardiovascular: Yes: Irregular Rate and Rhythm JVD: tds Heart Sounds: Yes: nl, S1, S2. No: Gallop Murmur: No: Systolic Murmur, Diastolic Murmur Edema: trace LE bl, erythema of shins bl Integumentary: No: Jaundice diaphoresis Neurological: Yes: Alert, Oriented (x3) Psychiatric: No: Agitated Current Medications Generic Name Dose Route Start Last Admin Trade Name Freq PRN Reason Stop Dose Admin Apixaban 5 mg 05/05/16 22:00 05/11/16 09:20 Eliquis - PO 5 mg BID ANURADHA Administration Atorvastatin Calcium 10 mg 05/05/16 22:00 05/10/16 21:31 Lipitor - PO 10 mg HS ANURADHA Administration Hydralazine HCl 100 mg 05/05/16 22:00 05/11/16 06:10 Apresoline - PO 100 mg TID ANURADHA Administration Ampicillin Sodium/Sulbactam 100 mls @ 200 mls/hr 05/06/16 18:00 05/11/16 09:19 Sodium 3 gm/ Sodium Chloride IVPB 200 mls/hr Q8H-IV ANURADHA Administration Insulin Aspart 4 units 05/09/16 18:02 05/11/16 06:10 Novolog Vial SQ Not Given TIDAC ANURADHA Insulin Detemir 28 units 05/05/16 22:00 05/10/16 21:31 Levemir Vial SQ 28 units HS ANURADHA Administration Isosorbide Mononitrate 60 mg 05/05/16 22:00 05/11/16 09:20 Imdur - PO 60 mg BID ANURADHA Administration Metoprolol Succinate 150 mg 05/05/16 22:00 05/11/16 09:20 Toprol Xl - PO 150 mg BID ANURADHA Administration Tamsulosin HCl 0.4 mg 05/06/16 08:30 05/11/16 09:20 Flomax - PO 0.4 mg DAILY@0830 ANURADHA Administration Torsemide 40 mg 05/11/16 10:00 Demadex - PO DAILY ANURADHA CBC, BMP 05/11/16 05:50 05/11/16 05:50 EKG 05/05/16: afib, vr 128, nonspecific tw changes, no st changes, no sig change prior CXR: no chf Echo 10/2015: Moderately decreased LV function (global). Nl RV size/fn. 1+ MR. mild-mod TR. mild ao dilation. Trivial effusion. cath 06/2013: 60-70 rpl1, 80-90 d1, subtotal om1 MIBI 08/2014 (pers): no STs; no ischemia seen; predominantly fixed medium-sized inferior/basal inferolat/apico-inferior defect c/w diaphragm attenuation; EF 46% tele: afib, rate controlled a/p: 55 yo with h/o afib with prior ?embolic CVA 05/2014 ([facility]) right visual field cut, syncope 09/19 with ICH at that time vs other entity on MRI and recurrent syncope 12/2015 (unclear etiology), Non-ischemic cardiomyopathy dx 2013 at [facility], HTN, HPL, Rt carotid stenosis, IDDM, RLE cellulitis s/p debridement, MSSA bacteremia 10/2015, DAMIAN not on home cpap, ckd, who presents with sob, le edema. sob, le edema, acute systolic HF exacerbation, NICM: -Frequent admits for chf, has poor outpt f/u so frequently re-accumulates volume w/o contacting outpt cardio. Was on torsemide 60 qd at home. -dry wt on dc usually around 340-370 lbs -Initially appeared volume overloaded with some worse le edema and diuresed with lasix 80 iv bid which diureses him well in past, daily wts/chemistry. Weight trending down, but creatinine worsening - 4/2: pannus edema and LE edema appears close to baseline. Would decrease diuretic dose back to 40 mg daily and check orthostatics. - 4/3: creatinine not yet improving on decreased diuretics although patient symptomatically better, dizziness improving, able to ambulate. Stopped torsemide this morning. Con't close monitoring of daily bmp and standing weights. - 4/5: cr improving while holding diuretic, likely be able to resume po torsemide tomorrow - 05/11: cr stable, wt rising, will resume torsemide 40 po qd - cont home LV dysfxn regimen: bb, imdur/hydralazine (not on kaylan/arb 2/2 ckd) Afib, h/o ischemic cva 05/20, - hemorrhagic CVA 06/19 (Imaging read as ICH or mass lesion): - case discussed with neuro in detail on prior admissions. Contrast enhancing lesion seen 06/19 and the prior heme on MRI were in same location and was thought to be most likely 2/2 post CVA hemorrhagic conversion (i.e. without hi risk for recurrent ICH). Less likely low-grade glioma, which would have very low risk of bleeding if AC resumed--hence the recs at that time were for usual AC considerations for his afib, no special precautions (pt failed repeatedly to f/u with neuro as outpatient, and then worsening renal fxn made him hi risk for morena when here last time). -warfarin changed to eliquis on past admits due to pt's repeated refusal to f/u with cardiology or have reliable INRs and make rec'd coumadin dose change, with worrisome CHADS-VASC 6 = estimated risk 9-10%/year, and hence concern he will stroke again on warfarin. - now on eliquis - Con't home regimen toprol 150 mg bid, rate controlled on tele cad: -managed medically, no angina/ACS/ischemia since -Here with borderline elevation in troponin, flat trend, consistent with prior baseline values. no signs acs, instead likely due to CHF and CKD. -continue home statin, bb, imdur, hydralazine -con't to defer ASA as pt with stable CAD in past and also on AC R carotid stenosis: -ADRIENNE with PSV in high 200s cm/sec here, suspicious for >70% stenosis per radiology report -vascular surgery c/s on prior admit felt stenosis is at MOST 70% (deferred further imaging with contrast due to low GFR). Recommended deferring CEA unless imaging suggested >80% stenosis, or if he developed symptoms/acute cerebrovascular event. Ao dilation - Con't bb. Routine outpatient surveillance CKD: - worsened with diuresis, 4/2 may be overdiuresed - decreasing diuretic dose as above DAMIAN not on home cpap - CPAP as needed.
[2016-05-11] MEDS: TORSEMIDE 20 MG TABLET (FP) PO SCH (12:13)
--- NOTE | 2016-05-11 14:33 | PN ---
Progress Note (short form) - Note Progress Note: Renal Follow up for GILLES on CKD Pt seen and examined at the bedside no acute complaints laying in bed flat with CPAP no chest pain or acute sob able to ambulate Vital Signs Temperature 98 F 05/11/16 10:00 Pulse Rate 78 05/11/16 10:27 Respiratory Rate 22 05/11/16 10:00 Blood Pressure 130/58 05/11/16 10:00 O2 Sat by Pulse Oximetry (%) 96 05/11/16 10:27 Intake & Output 05/08/16 05/09/16 05/10/16 05/11/16 23:59 23:59 23:59 23:59 Intake Total 790 220 550 100 Output Total 575 400 Balance 215 220 150 100 Weight 360 lb 2 oz 362 lb 2 oz 365 lb 4 oz 367 lb 8 oz Gen: NAD, on Room air CVS: RRR, No M/R Lungs: Dec BS throughout the lung person, no rales Abd: soft NT/ND, Obese Ext: No edema, clubbing or cyanosis CBC, BMP 05/11/16 05:50 05/11/16 05:50 Laboratory Tests 05/11/16 05:50 Calcium 7.6 L Phosphorus 6.2 H Magnesium 2.7 H Current Medications Apixaban (Eliquis -) 5 mg PO BID COUNTS [facility]CLUDE 234 BEDS AT [facility] Last Admin: 05/11/16 09:20 Dose: 5 mg Atorvastatin Calcium (Lipitor -) 10 mg PO HS COUNTS INCLUDE 234 BEDS AT THE [facility] Last Admin: 05/10/16 21:31 Dose: 10 mg Hydralazine HCl (Apresoline -) 100 mg PO TID COUNTS [facility]CLUDE 234 BEDS AT THE [facility] Last Admin: 05/11/16 06:10 Dose: 100 mg Ampicillin Sodium/Sulbactam (Sodium 3 gm/ Sodium Chloride) 100 mls @ 200 mls/ hr IVPB Q8H-IV COUNTS [facility]CLUDE 234 BEDS AT THE [facility] Last Admin: 05/11/16 09:19 Dose: 200 mls/hr Insulin Aspart (Novolog Vial) 4 units SQ TIDAC COUNTS [facility]CLUDE 234 BEDS AT THE [facility] Last Admin: 05/11/16 12:18 Dose: 4 units Insulin Detemir (Levemir Vial) 28 units SQ HS COUNTS INCLUDE 234 BEDS AT THE [facility] Last Admin: 05/10/16 21:31 Dose: 28 units Isosorbide Mononitrate (Imdur -) 60 mg PO BID COUNTS [facility]CLUDE 234 BEDS AT [facility] Last Admin: 05/11/16 09:20 Dose: 60 mg Metoprolol Succinate (Toprol Xl -) 150 mg PO BID COUNTS [facility]CLUDE 234 BEDS AT [facility] Last Admin: 05/11/16 09:20 Dose: 150 mg Tamsulosin HCl (Flomax -) 0.4 mg PO DAILY@0830 COUNTS [facility]CLUDE 234 BEDS AT [facility] Last Admin: 05/11/16 09:20 Dose: 0.4 mg Torsemide (Demadex -) 40 mg PO DAILY COUNTS INCLUDE 234 BEDS AT THE [facility] Last Admin: 05/11/16 12:13 Dose: 40 mg A/P 55 year old Gentleman with PMhx of CKD stage 4 with nephrotic proteinuria ( Negative ANNETTA, SPEP), DM Type 2, CHF, CAD, CVA, HLD, Obesity, Afib on Eliquis who presented with 3 day history of decreased urine output, LE swelling and SOB and found to have acute CHF and noted to have Cr rise from 2.9 to 3.6 as an inpatient. #GILLES on CKD Stage 4 Renal function stable Restarted Toresemide today trend BUN/Cr and electrolytes #Nephrotic Range Proteinuria Likely from underlying DM but cannot r/o FSGS serologic work up has been negative continue diuretics for management of edema #Acute CHF Cardiology following Titrating diuretics based on renal function Steven Wyatt DO
--- NOTE | 2016-05-11 16:49 | PN ---
Progress Note, Physician History of Present Illness: patient stable doing well no issues - Current Medication List Current Medications: Active Medications Apixaban (Eliquis -) 5 mg PO BID [facility] Last Admin: 05/11/16 09:20 Dose: 5 mg Atorvastatin Calcium (Lipitor -) 10 mg PO HS [facility] Last Admin: 05/10/16 21:31 Dose: 10 mg Hydralazine HCl (Apresoline -) 100 mg PO TID [facility] Last Admin: 05/11/16 15:44 Dose: 100 mg Ampicillin Sodium/Sulbactam (Sodium 3 gm/ Sodium Chloride) 100 mls @ 200 mls/ hr IVPB Q8H-IV [facility] Last Admin: 05/11/16 09:19 Dose: 200 mls/hr Insulin Aspart (Novolog Vial) 4 units SQ TIDAC [facility] Last Admin: 05/11/16 12:18 Dose: 4 units Insulin Detemir (Levemir Vial) 28 units SQ HS [facility] Last Admin: 05/10/16 21:31 Dose: 28 units Isosorbide Mononitrate (Imdur -) 60 mg PO BID [facility] Last Admin: 05/11/16 09:20 Dose: 60 mg Metoprolol Succinate (Toprol Xl -) 150 mg PO BID [facility] Last Admin: 05/11/16 09:20 Dose: 150 mg Tamsulosin HCl (Flomax -) 0.4 mg PO DAILY@0830 [facility] Last Admin: 05/11/16 09:20 Dose: 0.4 mg Torsemide (Demadex -) 40 mg PO DAILY [facility] Last Admin: 05/11/16 12:13 Dose: 40 mg - Objective Vital Signs: Vital Signs Temperature 98.6 F 05/11/16 15:39 Pulse Rate 96 H 05/11/16 15:39 Respiratory Rate 20 05/11/16 15:39 Blood Pressure 113/62 05/11/16 15:39 O2 Sat by Pulse Oximetry (%) 96 05/11/16 10:27 Constitutional: Yes: No Distress, Calm Cardiovascular: Yes: S1, S2 Respiratory: Yes: On Nasal O2, Poor Air Entry, Other (use of bipap) Gastrointestinal: Yes: Normal Bowel Sounds, Soft Musculoskeletal: Yes: Other Extremities: Yes: Erythema, Other Integumentary: Yes: Erythema (resolving) Neurological: Yes: Alert, Oriented Psychiatric: Yes: Alert Labs: CBC, BMP 05/11/16 05:50 05/11/16 05:50 INR, PTT INR 1.33 (0.82-1.09) H 05/05/16 16:42 Assessment/Plan Problem List - Problem (1) atrial fibrillation (2) Acute exacerbation of CHF (congestive heart failure) Code(s): I50.9 - HEART FAILURE, UNSPECIFIED (3) Systolic and diastolic CHF, acute on chronic Code(s): I50.43 - ACUTE ON CHRONIC COMBINED SYSTOLIC AND DIASTOLIC HRT FAIL (4) Dyspnea on exertion Code(s): R06.09 - OTHER FORMS OF DYSPNEA (5) Acute on chronic renal failure Code(s): N17.9 - ACUTE KIDNEY FAILURE, UNSPECIFIED N18.9 - CHRONIC KIDNEY DISEASE, UNSPECIFIED (6) Lower extremity edema Code(s): R60.0 - LOCALIZED EDEMA (7) CAD (coronary artery disease) Code(s): I25.10 - ATHSCL HEART DISEASE OF [place] CORONARY ARTERY W/O ANG PCTRS (8) Diabetes mellitus Code(s): E11.9 - TYPE 2 DIABETES MELLITUS WITHOUT COMPLICATIONS (9) Hypertension Code(s): I10 - ESSENTIAL (PRIMARY) HYPERTENSION bilateral cellulitis of the legs plan elevation of the legs changed to oral augmentin rest ct current mgt
[2016-05-11] MEDS: AMOX TR/POT CLAV 500MG/125MG TABLETS (FP) PO SCH (17:21)
[2016-05-11] MEDS: ATORVASTATIN CA 10 MG TABLET (FP) PO SCH (21:18)
[2016-05-11] MEDS: INSULIN DETEMIR 100 UNITS/ML MDV SQ SCH (21:21)
[2016-05-12] MEDS: INSULIN (NOVOLOG) ASPART 100 UNITS/ML 10ML VIAL SQ SCH ×2 (06:59→12:30)
[2016-05-12] MEDS: hydrALAZINE HCL 50 MG TABLET (FP) PO SCH (06:59)
[2016-05-12 07:39] LABS: MCH 29.3 pg (25.7-33.7); MCHC 32.7 g/dl (32.0-35.9); MEAN CELL VOLUME 89.4 fl (80-96); MEAN PLT VOLUME 8.3 fl (7.5-11.1); PLATELET COUNT 229 K/MM3 (134-434); RDW 18.8 % (11.9-15.9); WHITE BLOOD COUNT 11.4 K/mm3 (4.0-10.0)
[2016-05-12 07:50] LABS: CALCIUM 7.7 mg/dL (8.5-10.1); COCKROFT - GAULT 55.59; CREATININE 3.5 mg/dL (0.7-1.3); MAGNESIUM 2.7 mg/dL (1.8-2.4); PHOSPHOROUS 6.4 mg/dL (2.5-4.9)
[2016-05-12 09:15] VITALS: BP 124/95; PULSE 79; TEMP 98.4
[2016-05-12] MEDS: ISOSORBIDE MONONITRATE 60 MG TAB.SR.24H (FP) PO SCH (09:20)
[2016-05-12] MEDS: TORSEMIDE 20 MG TABLET (FP) PO SCH (09:20)
[2016-05-12] MEDS: APIXABAN 5 MG TABLET PO SCH (09:20)
[2016-05-12] MEDS: METOPROLOL SUCCINATE 100 MG TAB.SR.24H (FP) PO SCH (09:20)
[2016-05-12] MEDS: AMOX TR/POT CLAV 500MG/125MG TABLETS (FP) PO SCH (09:20)
[2016-05-12] MEDS: TAMSULOSIN HCL 0.4 MG CAP.ER.24H (FP) PO SCH (09:20)
--- NOTE | 2016-05-12 09:49 | PN ---
Progress Note (short form) - Note Progress Note: Subjective: The patient was seen and examined at the bedside, he reports feeling better today. Denies any dizziness. Current Medications Generic Name Dose Route Start Last Admin Trade Name Brianna PRN Reason Stop Dose Admin Amoxicillin/Clavulanate Potassium 1 tab 05/11/16 17:30 05/12/16 09:20 Augmentin - 500mg Tablet PO 1 tab BID@0800,1730 ANURADHA Administration Apixaban 5 mg 05/05/16 22:00 05/12/16 09:20 Eliquis - PO 5 mg BID ANURADHA Administration Atorvastatin Calcium 10 mg 05/05/16 22:00 05/11/16 21:18 Lipitor - PO 10 mg HS ANURADHA Administration Hydralazine HCl 100 mg 05/05/16 22:00 05/12/16 06:59 Apresoline - PO 100 mg TID ANURADHA Administration Insulin Aspart 4 units 05/09/16 18:02 05/12/16 06:59 Novolog Vial SQ 4 units TIDAC ANURADHA Administration Insulin Detemir 28 units 05/05/16 22:00 05/11/16 21:21 Levemir Vial SQ 28 units HS ANURADHA Administration Isosorbide Mononitrate 60 mg 05/05/16 22:00 05/12/16 09:20 Imdur - PO 60 mg BID ANURADHA Administration Metoprolol Succinate 150 mg 05/05/16 22:00 05/12/16 09:20 Toprol Xl - PO 150 mg BID ANURADHA Administration Tamsulosin HCl 0.4 mg 05/06/16 08:30 05/12/16 09:20 Flomax - PO 0.4 mg DAILY@0830 ANURADHA Administration Torsemide 40 mg 05/11/16 10:00 05/12/16 09:20 Demadex - PO 40 mg DAILY ANURADHA Administration Objective: Vital Signs Period Temp Pulse Resp BP Sys/Perez Pulse Ox Last 24 Hr 97.3 F-98.6 F 68-96 20-22 105-130/58-95 94-98 Physical Exam: General: Morbidly obese Lungs: CTA bilaterally Heart: Irregular rate and rhythm Abd: Soft, non-tender, non-distended. Normoactive bowel sounds Ext: 1+ B/l lower extremity edema, b/l [place] extremity erythema, improving. Left knee abrasion Neuro: CN 2-12 intact CBCD WBC 11.4 K/mm3 (4.0-10.0) H 05/12/16 05:35 RBC 4.28 M/mm3 (4.00-5.60) 05/12/16 05:35 Hgb 12.5 GM/dL (11.7-16.9) 05/12/16 05:35 Hct 38.3 % (35.4-49) 05/12/16 05:35 MCV 89.4 fl (80-96) 05/12/16 05:35 MCHC 32.7 g/dl (32.0-35.9) 05/12/16 05:35 RDW 18.8 % (11.9-15.9) H 05/12/16 05:35 Plt Count 229 K/MM3 (134-434) 05/12/16 05:35 MPV 8.3 fl (7.5-11.1) 05/12/16 05:35 CMP Sodium 138 mmol/L (136-145) 05/12/16 05:35 Potassium 3.8 mmol/L (3.5-5.1) 05/12/16 05:35 Chloride 100 mmol/L (98-107) 05/12/16 05:35 Carbon Dioxide 26 mmol/L (21-32) 05/12/16 05:35 Anion Gap 12 (8-16) 05/12/16 05:35 BUN 70 mg/dL (7-18) H 05/12/16 05:35 Creatinine 3.5 mg/dL (0.7-1.3) H 05/12/16 05:35 Creat Clearance w eGFR 17.27 (>60) 05/09/16 05:35 Random Glucose 103 mg/dL (74-106) 05/12/16 05:35 Calcium 7.7 mg/dL (8.5-10.1) L 05/12/16 05:35 Total Bilirubin 1.0 mg/dL (0.2-1.0) D 05/09/16 05:35 AST 25 U/L (15-37) 05/09/16 05:35 ALT 12 U/L (12-78) D 05/09/16 05:35 Alkaline Phosphatase 160 U/L (45-117) H 05/09/16 05:35 Total Protein 6.1 g/dl (6.4-8.2) L 05/09/16 05:35 Albumin 2.5 g/dl (3.4-5.0) L 05/09/16 05:35 CARDIAC ENZYMES Creatine Kinase 208 IU/L (39-308) 05/08/16 06:00 Troponin I 0.08 ng/ml (0.00-0.05) H 05/08/16 06:00 Assessment: This is a 55 year old male with PMHx of A.fib (on eliquis), CAD, CHF , 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 Plan: 1) Cardiology: chest pain - Borderline elevation in troponin, trended down - No current signs of ACS - Continue Lipitor - Continue Imdur - Continue hydralazine - Appreciate cardiology consult Acute systolic heart failure exacerbation - B/l lower extremity edema improving - Continue Torsemide - Bipap at night, DAMIAN but is non-compliant at home - Repeat ECHO reviewed - Daily weights - Strict I&O A.fib - Continue Eliquis - Rate controlled on Metoprolol XL - Appreciate cardiology consult Dizziness - Carotid dopplers reviewed 2) : CKD - Cr 3.5, worsening from baseline, but stable - Continue to monitor - Appreciate nephrology consult 3) ID: B/l lower extremity edema, erythema, cellulitis - B/l lower extremity doppler negative for DVT - Leukocytosis - Continue Unasyn - Appreciate ID consult 4) Endocrine: IDDM - BGM ACHS - Novolog 4u sq tidac - Levemir 28u sq qhs 5) F/E/N: - Diabetic low sodium diet - Monitor electrolytes 6) Prophylaxis: - On Eliquis - OOB ambulating 7) Dispo: - Possible discharge today pending duration of abx per ID CODE STATUS: FULL CODE Visit type - Emergency Visit Emergency Visit: Yes ED Registration Date: 05/05/16 Care time: The patient presented to the Emergency Department on the above date and was hospitalized for further evaluation of their emergent condition. - New Patient This patient is new to me today: No - Critical Care Critical Care patient: No
--- NOTE | 2016-05-12 12:20 | PN ---
Progress Note (short form) - Note Progress Note: s: no cp sob palps dizzy; feels well walking around [place] o: Vital Signs Period Temp Pulse Resp BP Sys/Perez Pulse Ox Last 24 Hr 97.3 F-98.6 F 68-96 20-20 105-130/62-95 94-98 Constitutional: Yes: No Distress, Obese Eyes: No: Sclera Icterus HENT: No: Nasal Congestion Respiratory: cta bl nl eff No: Accessory Muscle Use Gastrointestinal: Yes: Normal Bowel Sounds. obese No: Distention, Hepatomegaly, Palpable Mass, tenderness Cardiovascular: Yes: Irregular Rate and Rhythm JVD: tds Heart Sounds: Yes: nl, S1, S2. No: Gallop Murmur: No: Systolic Murmur, Diastolic Murmur Edema: trace LE bl, erythema of shins bl Integumentary: No: Jaundice diaphoresis Neurological: Yes: Alert, Oriented (x3) Psychiatric: No: Agitated Current Medications Generic Name Dose Route Start Last Admin Trade Name Freq PRN Reason Stop Dose Admin Amoxicillin/Clavulanate Potassium 1 tab 05/11/16 17:30 05/12/16 09:20 Augmentin - 500mg Tablet PO 1 tab BID@0800,1730 ANURADHA Administration Apixaban 5 mg 05/05/16 22:00 05/12/16 09:20 Eliquis - PO 5 mg BID ANURADHA Administration Atorvastatin Calcium 10 mg 05/05/16 22:00 05/11/16 21:18 Lipitor - PO 10 mg HS ANURADHA Administration Hydralazine HCl 100 mg 05/05/16 22:00 05/12/16 06:59 Apresoline - PO 100 mg TID ANURADHA Administration Insulin Aspart 4 units 05/09/16 18:02 05/12/16 06:59 Novolog Vial SQ 4 units TIDAC ANURADHA Administration Insulin Detemir 28 units 05/05/16 22:00 05/11/16 21:21 Levemir Vial SQ 28 units HS ANURADHA Administration Isosorbide Mononitrate 60 mg 05/05/16 22:00 05/12/16 09:20 Imdur - PO 60 mg BID ANURADHA Administration Metoprolol Succinate 150 mg 05/05/16 22:00 05/12/16 09:20 Toprol Xl - PO 150 mg BID ANURADHA Administration Tamsulosin HCl 0.4 mg 05/06/16 08:30 05/12/16 09:20 Flomax - PO 0.4 mg DAILY@0830 ANURADHA Administration Torsemide 40 mg 05/11/16 10:00 05/12/16 09:20 Demadex - PO 40 mg DAILY ANURADHA Administration CBC, BMP 05/12/16 05:35 05/12/16 05:35 EKG 05/05/16: afib, vr 128, nonspecific tw changes, no st changes, no sig change prior CXR: no chf Echo 10/2015: Moderately decreased LV function (global). Nl RV size/fn. 1+ MR. mild-mod TR. mild ao dilation. Trivial effusion. 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 sob, le edema, acute systolic HF exacerbation, NICM: -Frequent admits for chf, has poor outpt f/u so frequently re-accumulates volume w/o contacting outpt cardio. Was on torsemide 60 qd at home. -dry wt on dc usually around 340-370 lbs -Initially appeared volume overloaded with some worse le edema and diuresed with lasix 80 iv bid which diureses him well in past, daily wts/chemistry. Weight trending down, but creatinine worsening - 4/2: pannus edema and LE edema appears close to baseline. Would decrease diuretic dose back to 40 mg daily and check orthostatics. - 4/3: creatinine not yet improving on decreased diuretics although patient symptomatically better, dizziness improving, able to ambulate. Stopped torsemide this morning. Con't close monitoring of daily bmp and standing weights. - 05/10: cr improving while holding diuretic, likely be able to resume po torsemide tomorrow - 05/11: cr stable, wt rising, will resume torsemide 40 po qd - 05/12: cr stable, wt down, cont po torsemide 40 qd - cont home LV dysfxn regimen: bb, imdur/hydralazine (not on kaylan/arb 2/2 ckd) Afib, h/o ischemic cva 05/20, - hemorrhagic CVA 06/19 (Imaging read as ICH or mass lesion): - case discussed with neuro in detail on prior admissions. Contrast enhancing lesion seen 06/19 and the prior heme on MRI were in same location and was thought to be most likely 2/2 post CVA hemorrhagic conversion (i.e. without hi risk for recurrent ICH). Less likely low-grade glioma, which would have very low risk of bleeding if AC resumed--hence the recs at that time were for usual AC considerations for his afib, no special precautions (pt failed repeatedly to f/u with neuro as outpatient, and then worsening renal fxn made him hi risk for morena when here last time). -warfarin changed to eliquis on past admits due to pt's repeated refusal to f/u with cardiology or have reliable INRs and make rec'd coumadin dose change, with worrisome CHADS-VASC 6 = estimated risk 9-10%/year, and hence concern he will stroke again on warfarin. - now on eliquis - Con't home regimen toprol 150 mg bid, rate controlled on tele cad: -managed medically, no angina/ACS/ischemia since -Here with borderline elevation in troponin, flat trend, consistent with prior baseline values. no signs acs, instead likely due to CHF and CKD. -continue home statin, bb, imdur, hydralazine -con't to defer ASA as pt with stable CAD in past and also on AC R carotid stenosis: -ADRIENNE with PSV in high 200s cm/sec here, suspicious for >70% stenosis per radiology report -vascular surgery c/s on prior admit felt stenosis is at MOST 70% (deferred further imaging with contrast due to low GFR). Recommended deferring CEA unless imaging suggested >80% stenosis, or if he developed symptoms/acute cerebrovascular event. Ao dilation - Con't bb. Routine outpatient surveillance CKD: - worsened with diuresis, 4/2 may be overdiuresed - decreasing diuretic dose as above DAMIAN not on home cpap - CPAP as needed. cardiac hou stable for dc
--- NOTE | 2016-05-12 12:31 | DS ---
[id number] Rate 20 05/12/16 09:14 Blood Pressure 124/95 05/12/16 09:14 O2 Sat by Pulse Oximetry (%) 96 05/12/16 11:16 Findings/Remarks: Physical Exam: General: Morbidly obese Lungs: CTA bilaterally Heart: Irregular rate and rhythm Abd: Soft, non-tender, non-distended. Normoactive bowel sounds Ext: 1+ B/l lower extremity edema, b/l [place] extremity erythema, improving. Left knee abrasion Neuro: CN 2-12 intact Labs: CBC, BMP 05/12/16 05:35 05/12/16 05:35 Discharge Summary Reason For Visit: ATRIAL FIBRILLATION Current Active Problems CHF (congestive heart failure) (Acute) Lower extremity edema (Acute) History of CVA with residual deficit (Chronic) Hyperlipemia (Chronic) Splenic abscess (Chronic) Uncontrolled diabetes mellitus (Chronic) atrial fibrillation (Chronic) Hospital Course: This is a 55 year old male with PMHx of A.fib (on eliquis), CAD, CHF, CVA ( ischemic 05/20, 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 Plan: 1) Cardiology: chest pain - Borderline elevation in troponin, trended down - No current signs of ACS - Continue Lipitor - Continue Imdur - Continue hydralazine - Appreciate cardiology consult Acute systolic heart failure exacerbation - B/l lower extremity edema improving - Continue Torsemide - Bipap at night, DAMIAN but is non-compliant at home - Repeat ECHO reviewed - Daily weights - Strict I&O A.fib - Continue Eliquis - Rate controlled on Metoprolol XL - Appreciate cardiology consult Dizziness - Carotid dopplers reviewed 2) : CKD - Cr 3.5, worsening from baseline, but stable - Continue to monitor - Appreciate nephrology consult 3) ID: B/l lower extremity edema, erythema, cellulitis - B/l lower extremity doppler negative for DVT - Leukocytosis - Switched Unasyn to Augmentin - Appreciate ID consult 4) Endocrine: IDDM - BGM ACHS - Novolog 4u sq tidac - Levemir 28u sq qhs Condition: Improved - Instructions Diet, Activity, Other Instructions: Please return to the ED with new, persistent, or worsening symptoms. Please follow-up with providers as indicated. Referrals: Mika Ho MD [Primary Care Provider] - (Please follow-up with Dr. Drake ( cardiology) within 2-3 days) Steven Wyatt MD [Staff Physician] - (Please follow-up with nephrology within 1 week to have your kidney function checked) Tai Anderson MD [Staff Physician] - (Please follow-up with infectious disease within 1 week to have your cellulitis reassessed) Zuhair Briseno MD [Staff Physician] - 1 Week Yohan Blood MD [Staff Physician] - (Please follow-up with Dr. Blood as an outpatient for sleep studies) Disposition: HOME - Home Medications Comprehensive Discharge Medication List: Ambulatory Orders Insulin (Novolog) [Novolog Flexpen -] 4 units SQ AC #1 pen 09/07/14 Atorvastatin Ca [Lipitor] 10 mg PO HS #30 tablet 02/26/15 Hydralazine HCl [Apresoline -] 100 mg PO TID #90 tablet 02/26/15 Insulin (Levemir) [Levemir Vial] 28 units SQ HS #7 ml 02/26/15 Isosorbide Mononitrate [Imdur -] 60 mg PO BID #60 tab.sr.24h 02/26/15 Metoprolol Succinate [Toprol XL -] 150 mg PO BID #60 tab.sr.24h 02/26/15 Apixaban [Eliquis -] 5 mg PO BID #60 tablet 10/29/15 Tamsulosin HCl [Flomax -] 0.4 mg PO DAILY@0830 cap.er.24h 04/02/16 Amox-Tr/K Cl [Augmentin 500-125mg Tablet -] 1 tab PO BID@0800,1730 #7 tablet 08/21 Torsemide [Demadex -] 40 mg PO DAILY #30 tablet 05/12/16 This patient is new to me today: No Emergency Visit: Yes ED Registration Date: 05/05/16 Care time: The patient presented to the Emergency Department on the above date and was hospitalized for further evaluation of their emergent condition. Critical Care patient: No - Discharge Referral Referred to [facility] No
--- NOTE | 2016-05-12 16:02 | PN ---
Progress Note (short form) - Note Progress Note: Renal Follow up for GILLES on CKD Pt seen and examined at the bedside before discharge feels well to be discharged home today Vital Signs Temperature 98.4 F 05/12/16 09:14 Pulse Rate 79 05/12/16 09:14 Respiratory Rate 20 05/12/16 09:14 Blood Pressure 124/95 05/12/16 09:14 O2 Sat by Pulse Oximetry (%) 96 05/12/16 11:16 Intake & Output 05/09/16 05/10/16 05/11/16 05/12/16 23:59 23:59 23:59 23:59 Intake Total 220 550 500 450 Output Total 400 950 400 Balance 220 150 -450 50 Weight 362 lb 2 oz 365 lb 4 oz 367 lb 8 oz 355 lb Gen: NAD, on Room air CVS: RRR, No M/R Lungs: Dec BS throughout the lung person, no rales Abd: soft NT/ND, Obese Ext: No edema, clubbing or cyanosis CBC, BMP 05/12/16 05:35 05/12/16 05:35 A/P 55 year old Gentleman with PMhx of CKD stage 4 with nephrotic proteinuria ( Negative ANNETTA, SPEP), DM Type 2, CHF, CAD, CVA, HLD, Obesity, Afib on Eliquis who presented with 3 day history of decreased urine output, LE swelling and SOB and found to have acute CHF and noted to have Cr rise from 2.9 to 3.6 as an inpatient. #GILLES on CKD Stage 4 Renal function stable To follow up in the office next week for monitoring of renal function #Nephrotic Range Proteinuria Likely from underlying DM but cannot r/o FSGS serologic work up has been negative continue diuretics for management of edema #Acute CHF continue oral diuretics trend daily weights low salt diet Steven Wyatt DO
--- NOTE | 2016-05-16 07:16 | PN ---
Progress Note, Physician History of Present Illness: patient stable doing well no issuesfeels much better breathing well - Objective Vital Signs: Vital Signs Temperature 98.4 F 05/12/16 09:14 Pulse Rate 79 05/12/16 09:14 Respiratory Rate 20 05/12/16 09:14 Blood Pressure 124/95 05/12/16 09:14 O2 Sat by Pulse Oximetry (%) 96 05/12/16 11:16 Constitutional: Yes: No Distress, Calm, Obese Neck: Yes: Supple Cardiovascular: Yes: S1, S2 Respiratory: Yes: Regular, Poor Air Entry (bases) Gastrointestinal: Yes: Normal Bowel Sounds, Soft Extremities: Yes: Erythema (resolving) Integumentary: Yes: Erythema (resolving) Neurological: Yes: Alert, Oriented Psychiatric: Yes: Alert, Oriented Labs: CBC, BMP 05/12/16 05:35 05/12/16 05:35 INR, PTT INR 1.33 (0.82-1.09) H 05/05/16 16:42 Assessment/Plan Problem List - Problem (1) atrial fibrillation (2) Acute exacerbation of CHF (congestive heart failure) Code(s): I50.9 - HEART FAILURE, UNSPECIFIED (3) Systolic and diastolic CHF, acute on chronic Code(s): I50.43 - ACUTE ON CHRONIC COMBINED SYSTOLIC AND DIASTOLIC HRT FAIL (4) Dyspnea on exertion Code(s): R06.09 - OTHER FORMS OF DYSPNEA (5) Acute on chronic renal failure Code(s): N17.9 - ACUTE KIDNEY FAILURE, UNSPECIFIED N18.9 - CHRONIC KIDNEY DISEASE, UNSPECIFIED (6) Lower extremity edema Code(s): R60.0 - LOCALIZED EDEMA (7) CAD (coronary artery disease) Code(s): I25.10 - ATHSCL HEART DISEASE OF [place] CORONARY ARTERY W/O ANG PCTRS (8) Diabetes mellitus Code(s): E11.9 - TYPE 2 DIABETES MELLITUS WITHOUT COMPLICATIONS (9) Hypertension Code(s): I10 - ESSENTIAL (PRIMARY) HYPERTENSION bilateral cellulitis of the legs plan elevation of the legs continue oral augmentin rest ct current mgt
== END 2016-05-12 13:53 | disposition home or self-care (01) | DRG 194 ==
LOC: JER 17:46 → JERBED 20:26 → J4W 21:31
PROVIDERS: ADMIT Internal Medicine; ATTEND Registered Nurse
PROC: 5A09557 Assistance with Respiratory Ventilation, Greater than 96 Consecutive Hours, Continuous Positive Airway Pressure (ICD-10-PCS; principal; 2016-05-09)
DX: I50.23 Acute on chronic systolic (congestive) heart failure (principal); I48.91 Unspecified atrial fibrillation; N17.9 Acute kidney failure, unspecified; I13.0 Hypertensive heart and chronic kidney disease with heart failure and stage 1 through stage 4 chronic kidney disease, or unspecified chronic kidney disease; E11.22 Type 2 diabetes mellitus with diabetic chronic kidney disease; E11.65 Type 2 diabetes mellitus with hyperglycemia; N18.4 Chronic kidney disease, stage 4 (severe); G47.33 Obstructive sleep apnea (adult) (pediatric); I25.10 Atherosclerotic heart disease of native coronary artery without angina pectoris; E78.5 Hyperlipidemia, unspecified; Z86.73 Personal history of transient ischemic attack (TIA), and cerebral infarction without residual deficits; I42.9 Cardiomyopathy, unspecified; R07.9 Chest pain, unspecified; Z79.4 Long term (current) use of insulin; L03.116 Cellulitis of left lower limb; L03.115 Cellulitis of right lower limb; I65.21 Occlusion and stenosis of right carotid artery; R42 Dizziness and giddiness; N40.0 Benign prostatic hyperplasia without lower urinary tract symptoms
CPT/HCPCS: 36415; 36600; 71010-TC; 76775-TC; 76856-TC; 80048; 80053; 82550; 82553; 82570; 82803; 83605; 83735; 83880; 84100; 84300; 84443; 84484; 84540; 85025; 85027; 85610; 85730; 93005; 93010; 93306-TC; 93880-TC; 93970-TC; 94660; 99285-25

== ENCOUNTER 2016-05-16 03:06 | Inpatient (IN) | payer OTHER ==
[2016-05-16 04:02] LABS: BASOPHIL 1.5 % (0-2.0); EOSINOPHIL 3.3 % (0-4.5); MCH 28.8 pg (25.7-33.7); MCHC 32.5 g/dl (32.0-35.9); MEAN CELL VOLUME 88.6 fl (80-96); MEAN PLT VOLUME 7.7 fl (7.5-11.1); NEUTROPHILS 79.8 % (42.8-82.8); PLATELET COUNT 232 K/MM3 (134-434); RDW 17.9 % (11.9-15.9)
[2016-05-16 04:03] LABS: URINE APPEARANCE CLEAR; URINE BILIRUBIN NEGATIVE (NEGATIVE); URINE BLOOD NEGATIVE (NEGATIVE); URINE COLOR STRAW; URINE GLUCOSE (UA) 2+ (NEGATIVE); URINE KETONE NEGATIVE (NEGATIVE); URINE NITRITE NEGATIVE (NEGATIVE); URINE UROBILINOGEN NEGATIVE E.U./dl (0.2-1.0)
[2016-05-16 04:04] LABS: URINE LEUK ESTERASE 1+ (NEGATIVE); URINE PROTEIN 2+ (NEGATIVE)
[2016-05-16 04:12] LABS: URINE MUCUS RARE; URINE RBC 1 /hpf (0-3); URINE WBC 2 /hpf (3-5)
[2016-05-16 04:14] LABS: INR 1.5 (0.82-1.09); PROTHROMBIN TIME (PATIENT) 16.6 SEC (9.98-11.88)
[2016-05-16 04:25] LABS: ALBUMIN 2.5 g/dl (3.4-5.0); BILIRUBIN,TOTAL 0.8 mg/dL (0.2-1.0); CALCIUM 7.7 mg/dL (8.5-10.1); COCKROFT - GAULT 81.02; CREATININE 2.3 mg/dL (0.7-1.3); TOT PROT 6.5 g/dl (6.4-8.2)
[2016-05-16 04:27] LABS: TROPONIN I 0.07 ng/ml (0.00-0.05)
[2016-05-16] MEDS ORDERED: FUROSEMIDE 40 MG/4 ML INJECTABLE VIAL IVPUSH ONE (04:33)
--- NOTE | 2016-05-16 04:33 | PDOC ---
History of Present Illness - General History Source: Patient Exam Limitations: No Limitations - History of Present Illness Initial Comments: 05/16/16 04:38 Patient is a 55 year old male with a past medical history of Afib (on Eliquis) , CAD, CHF, CVA (4/15 Ischemic, 5/15 L- Occipital Hemorrhage), HTN, HLD, IDDM, CKD, Cirrhosis, Diverticulitis who presents to the ED with shortness of breath and chest discomfort. Patient was admitted on 05/05 for CHF/Afib and was discharged home on 05/12. Patient states that he has been out of it and needed assistance while at home. He states that he was bed bound. He notes that he has been compliant with all of his medications. Patient denies fever, cough, dizziness, headache, diaphoresis, nausea, vomiting , diarrhea or constipation. <Marsha Abraham - Last Filed: 05/16/16 04:42> - General History Source: Patient <Mario Alberto Carter - Last Filed: 05/16/16 05:52> - General Chief Complaint: Shortness of Breath Stated Complaint: DIFFICULTY BREATHING Time Seen by Provider: 05/16/16 04:31 Past History <Marsha Abraham - Last Filed: 05/16/16 04:42> - Past Medical History Anemia: No Asthma: No Cancer: No Cardiac Disorders: Yes (a-fib, "blood clot on heart", CAD, ASHD, Non-ichemic CMP , cardiomegaly) CVA: Yes (4/15(ischemic), 5/15(leftside occipital hemmorrage)-right peripheral impair) COPD: No CHF: Yes Dementia: No Diabetes: Yes (IDDM) GI Disorders: Yes (DIVERTICULOSIS, spleenic abcess) Disorders: Yes (CKD, CRI) HTN: Yes Hypercholesterolemia: Yes Liver Disease: Yes (CIRRHOSIS) Suicide Attempt (Hx): No Seizures: No Thyroid Disease: No - Surgical History Orthopedic Surgery: Yes (RT FOOT debridements) - Immunization History Immunization Up to Date: Yes - Psycho/Social/Smoking Cessation Hx Anxiety: No Suicidal Ideation: No Smoking History: Smoker current status UNK Have you smoked in the past 12 months: No Hx Alcohol Use: Yes (SOCIALLY) Drug/Substance Use Hx: No Substance Use Type: None Hx Substance Use Treatment: No <Mario Alberto Carter - Last Filed: 05/16/16 05:52> - Past Medical History Allergies/Adverse Reactions: Allergies Allergy/AdvReac Type Severity Reaction Status Date / Time ciprofloxacin [From Cipro] Allergy Severe Rash Verified 05/16/16 03:42 ciprofloxacin HCl Allergy Severe Rash Verified 05/16/16 03:42 [From Cipro] Home Medications: Ambulatory Orders Insulin (Novolog) [Novolog Flexpen -] 4 units SQ AC #1 pen 09/07/14 Atorvastatin Ca [Lipitor] 10 mg PO HS #30 tablet 02/26/15 Hydralazine HCl [Apresoline -] 100 mg PO TID #90 tablet 02/26/15 Insulin (Levemir) [Levemir Vial] 28 units SQ HS #7 ml 02/26/15 Isosorbide Mononitrate [Imdur -] 60 mg PO BID #60 tab.sr.24h 02/26/15 Metoprolol Succinate [Toprol XL -] 150 mg PO BID #60 tab.sr.24h 02/26/15 Apixaban [Eliquis -] 5 mg PO BID #60 tablet 10/29/15 Tamsulosin HCl [Flomax -] 0.4 mg PO DAILY@0830 cap.er.24h 04/02/16 Amox-Tr/K Cl [Augmentin 500-125mg Tablet -] 1 tab PO BID@0800,1730 #7 tablet 08/21 Torsemide [Demadex -] 40 mg PO DAILY #30 tablet 05/12/16 Review of Systems - Review of Systems Able to Perform ROS?: Yes Comments:: 05/16/16 04:39 CONSTITUTIONAL: Absent: fever, chills, diaphoresis, generalized weakness, malaise, loss of appetite HEENT: Absent: rhinorrhea, nasal congestion, throat pain, throat swelling, difficulty swallowing, mouth swelling, ear pain, eye pain, visual Changes CARDIOVASCULAR: Present: chest pressure Absent: chest pain, syncope, palpitations, irregular heart rate, lightheadedness , peripheral edema RESPIRATORY: Present: shortness of breath Absent: cough, dyspnea with exertion, orthopnea, wheezing, stridor, hemoptysis GASTROINTESTINAL: Absent: abdominal pain, abdominal distension, nausea, vomiting, diarrhea, constipation, melena, hematochezia GENITOURINARY: Absent: dysuria, frequency, urgency, hesitancy, hematuria, flank pain, genital pain MUSCULOSKELETAL: Absent: myalgia, arthralgia, joint swelling SKIN: Absent: rash, itching, pallor HEMATOLOGIC/IMMUNOLOGIC: Absent: easy bleeding, easy bruising, lymphadenopathy, frequent infections ENDOCRINE: Absent: unexplained weight gain, unexplained weight loss, heat intolerance, cold intolerance NEUROLOGIC: Absent: headache, focal weakness or paresthesias, dizziness, unsteady gait, seizure, mental status changes, bladder or bowel incontinence PSYCHIATRIC: Absent: anxiety, depression, suicidal or homicidal ideation, hallucinations. <Marsha Abraham - Last Filed: 05/16/16 04:42> *Physical Exam - Vital Signs Last Vital Signs Temp Pulse Resp BP Pulse Ox 98.3 F 115 H 28 H 212/130 96 05/16/16 03:40 05/16/16 03:40 05/16/16 03:40 05/16/16 03:40 05/16/16 03:40 - Physical Exam Comments: 05/16/16 04:39 GENERAL: Well developed, well nourished. Awake and alert. In no acute distress. HEENT: Normocephalic, atraumatic. PERRLA, EOMI. No conjunctival pallor. Sclerae are non -icteric. Moist mucous membranes. Oropharynx is clear. NECK: Supple. Full ROM. No JVD. Carotid pulses 2+ and symmetric, without bruits. No thyromegaly. No lymphadenopathy. CARDIOVASCULAR: +Irregularly irregular rate and rhythm. No murmurs, rubs, or gallops. Distal pulses are 2+ and symmetric. PULMONARY: +Decreased breath sounds. No evidence of respiratory distress. Lungs clear to auscultation bilaterally. No wheezing, rales or rhonchi. ABDOMINAL: +Morbidly obese. Soft. Non-tender. Non-distended. No rebound or guarding. No organomegaly. Normoactive bowel sounds. MUSCULOSKELETAL Normal range of motion at all joints. No bony deformities or tenderness. No CVA tenderness. EXTREMITIES: + +1 edema of LE bilaterally. No cyanosis. No clubbing. No calf tenderness. SKIN: Warm and dry. Normal capillary refill. No rashes. No jaundice. NEUROLOGICAL: +Neurologically intact. Alert, awake, appropriate. Cranial nerves 2-12 intact. No deficits to light touch and temperature in face, upper extremities and lower extremities. No motor deficits in the in face, upper extremities and lower extremities. Normoreflexic in the upper and lower extremities. Normal speech. Toes are downgoing bilaterally. PSYCHIATRIC: Cooperative. Good eye contact. Appropriate mood and affect. <Marsha Abraham - Last Filed: 05/16/16 04:42> - Vital Signs Last Vital Signs Temp Pulse Resp BP Pulse Ox 98.3 F 115 H 28 H 212/130 96 05/16/16 03:40 05/16/16 03:40 05/16/16 03:40 05/16/16 03:40 05/16/16 03:40 <Mario Alberto Carter - Last Filed: 05/16/16 05:52> Heart Score/ECG Review #1 05/16/16 04:42 ECG Impression: Afib with rapid ventricular response Right axis deviation Vent rate 113 bpm <Marsha Abraham - Last Filed: 05/16/16 04:42> ED Treatment Course - LABORATORY CBC & Chemistry Diagram: 05/16/16 03:59 05/16/16 03:59 - ADDITIONAL ORDERS Additional order review: Laboratory Results 05/16/16 05/16/16 05/16/16 03:59 03:59 03:59 INR 1.50 H Sodium 144 Potassium 3.5 Chloride 107 Carbon Dioxide 25 Anion Gap 12 BUN 43 H D Creatinine 2.3 H D Creat Clearance w eGFR 29.89 Random Glucose 186 H D Calcium 7.7 L Total Bilirubin 0.8 AST 22 ALT 13 Alkaline Phosphatase 153 H Creatine Kinase 208 Troponin I 0.07 H B-Natriuretic Peptide 36773.84 H Total Protein 6.5 Albumin 2.5 L Urine Color Straw Urine Appearance Clear Urine pH 7.0 D Ur Specific [place] 1.010 Urine Protein 2+ H Urine Glucose (UA) 2+ H Urine Ketones Negative Urine Blood Negative Urine Nitrite Negative Urine Bilirubin Negative Urine Urobilinogen Negative Ur Leukocyte Esterase 1+ H Urine RBC 1 Urine WBC 2 Ur Epithelial Cells Rare Urine Mucus Rare 05/16/16 03:59 RBC 4.29 MCV 88.6 MCHC 32.5 RDW 17.9 H MPV 7.7 Neutrophils % 79.8 Lymphocytes % 7.8 L Monocytes % 7.6 Eosinophils % 3.3 Basophils % 1.5 <Koziy,Marsha - Last Filed: 05/16/16 04:42> - LABORATORY CBC & Chemistry Diagram: 05/16/16 03:59 05/16/16 03:59 - ADDITIONAL ORDERS Additional order review: Laboratory Results 05/16/16 05/16/16 05/16/16 03:59 03:59 03:59 INR 1.50 H Sodium 144 Potassium 3.5 Chloride 107 Carbon Dioxide 25 Anion Gap 12 BUN 43 H D Creatinine 2.3 H D Creat Clearance w eGFR 29.89 Random Glucose 186 H D Calcium 7.7 L Total Bilirubin 0.8 AST 22 ALT 13 Alkaline Phosphatase 153 H Creatine Kinase 208 Troponin I 0.07 H B-Natriuretic Peptide 92863.84 H Total Protein 6.5 Albumin 2.5 L Urine Color Straw Urine Appearance Clear Urine pH 7.0 D Ur Specific [place] 1.010 Urine Protein 2+ H Urine Glucose (UA) 2+ H Urine Ketones Negative Urine Blood Negative Urine Nitrite Negative Urine Bilirubin Negative Urine Urobilinogen Negative Ur Leukocyte Esterase 1+ H Urine RBC 1 Urine WBC 2 Ur Epithelial Cells Rare Urine Mucus Rare 05/16/16 03:59 RBC 4.29 MCV 88.6 MCHC 32.5 RDW 17.9 H MPV 7.7 Neutrophils % 79.8 Lymphocytes % 7.8 L Monocytes % 7.6 Eosinophils % 3.3 Basophils % 1.5 - RADIOLOGY Radiology Studies Ordered: Category Date Time Status CHEST X-RAY PORTABLE* [RAD] Stat Radiology 05/16/16 03:55 Ordered <Mario Alberto Carter - Last Filed: 05/16/16 05:52> Medical Decision Making - Medical Decision Making 05/16/16 05:51 Dr. Carter: The scribe's documentation has been prepared under my direction and personally reviewed by me in its entirery. I confirm that the note above accurately reflects all work, treatment, procedures, and medical decision making performed by me. <Mario Alberto Carter - Last Filed: 05/16/16 05:52> *DC/Admit/Observation/Transfer - Attestations Scribe Attestion: 05/16/16 04:41 Documentation prepared by FADI Ray, acting as medical intern for Mario Alberto Carter DO. <Marsha Abraham - Last Filed: 05/16/16 04:42> - Discharge Dispostion Admit: Yes <Mario Alberto Carter - Last Filed: 05/16/16 05:52> Diagnosis at time of Disposition: atrial fibrillation Acute exacerbation of CHF (congestive heart failure) Qualifiers: Congestive heart failure type: unspecified congestive heart failure type Qualified Code(s): I50.9 - Heart failure, unspecified - Discharge Dispostion Condition at time of disposition: Stable - Referrals Referrals: Mika Ho MD [Primary Care Provider] -
[2016-05-16] MEDS ORDERED: FUROSEMIDE 40 MG/4 ML INJECTABLE VIAL ONE (05:02)
--- NOTE | 2016-05-16 07:00 | HP ---
CHIEF COMPLAINT: chest pressure HISTORY OF PRESENT ILLNESS: This is a 55 year old male with a past medical history of Afib (on Eliquis), CAD , CHF, CVA (05/20 Ischemic, 06/19 L- Occipital Hemorrhage), HTN, HLD, IDDM, CKD, Cirrhosis, Diverticulitis, splenic abscess who presented to the ED with chest pressure since 10pm on 05/15/16. Pt states he feels like someone is standing on his chest. Pt denies palpitations. He states that he is taking ALL of his medications as prescribed. ER course was notable for: (1) troponin 0.07 (2) BNP 33,526 (3) given lasix 80mg IVP Recent Travel: pt denies PAST MEDICAL HISTORY: Afib (on Eliquis), CAD, CHF, CVA (05/20 Ischemic, 06/19 L- Occipital Hemorrhage), HTN, HLD, IDDM, CKD, Cirrhosis, Diverticulitis, splenic abscess Social History: Smoking: pt denies Alcohol: pt denies Drugs: pt denies Family History: Allergies ciprofloxacin [From Cipro] Allergy (Severe, Verified 05/16/16 03:42) Rash ciprofloxacin HCl [From Cipro] Allergy (Severe, Verified 05/16/16 03:42) Rash HOME MEDICATIONS: 3 Medication Instructions Recorded Insulin (Novolog) [Novolog Flexpen 4 units SQ AC #1 pen 09/07/14 -] Atorvastatin Ca [Lipitor] 10 mg PO HS #30 tablet 02/26/15 Hydralazine HCl [Apresoline -] 100 mg PO TID #90 tablet 02/26/15 Insulin (Levemir) [Levemir Vial] 28 units SQ HS #7 ml 02/26/15 Isosorbide Mononitrate [Imdur -] 60 mg PO BID #60 tab.sr.24h 02/26/15 Metoprolol Succinate [Toprol XL -] 150 mg PO BID #60 tab.sr.24h 02/26/15 Apixaban [Eliquis -] 5 mg PO BID #60 tablet 10/29/15 Tamsulosin HCl [Flomax -] 0.4 mg PO DAILY@0830 cap.er.24h 04/02/16 Amox-Tr/K Cl [Augmentin 500-125mg 1 tab PO BID@0800,1730 #7 tablet 05/12/16 Tablet -] Torsemide [Demadex -] 40 mg PO DAILY #30 tablet 05/12/16 REVIEW OF SYSTEMS CONSTITUTIONAL: Absent: fever, chills, diaphoresis, generalized weakness, malaise, loss of appetite, weight change HEENT: Absent: rhinorrhea, nasal congestion, throat pain, throat swelling, difficulty swallowing, mouth swelling, ear pain, eye pain, visual changes CARDIOVASCULAR: Present: chest pain Absent: syncope, palpitations, irregular heart rate, lightheadedness, peripheral edema RESPIRATORY: Absent: cough, shortness of breath, dyspnea with exertion, orthopnea, wheezing, stridor, hemoptysis GASTROINTESTINAL: Absent: abdominal pain, abdominal distension, nausea, vomiting, diarrhea, constipation, melena, hematochezia GENITOURINARY: Absent: dysuria, frequency, urgency, hesitancy, hematuria, flank pain, genital pain MUSCULOSKELETAL: Absent: myalgia, arthralgia, joint swelling, back pain, neck pain SKIN: Absent: rash, itching, pallor HEMATOLOGIC/IMMUNOLOGIC: Absent: easy bleeding, easy bruising, lymphadenopathy, frequent infections ENDOCRINE: Absent: unexplained weight gain, unexplained weight loss, heat intolerance, cold intolerance NEUROLOGIC: Absent: headache, focal weakness or paresthesias, dizziness, unsteady gait, seizure, mental status changes, bladder or bowel incontinence PSYCHIATRIC: Absent: anxiety, depression, suicidal or homicidal ideation, hallucinations. PHYSICAL EXAMINATION Vital Signs - 24 hr 3 05/16/16 03:40 Temperature 98.3 F Pulse Rate 115 H Respiratory 28 H Rate Blood Pressure 212/130 O2 Sat by Pulse 96 Oximetry (%) GENERAL: Awake, alert, and fully oriented, in no acute distress. HEAD: Normal with no signs of trauma. EYES: Pupils equal, round and reactive to light, extraocular movements intact, sclera anicteric, conjunctiva clear. No lid lag. EARS, NOSE, THROAT: Ears normal, nares patent, oropharynx clear without exudates. Moist mucous membranes. NECK: Normal range of motion, supple without lymphadenopathy, JVD, or masses. LUNGS: Breath sounds equal, clear to auscultation bilaterally. No wheezes, and no crackles. No accessory muscle use. HEART: Regular rate and rhythm, normal S1 and S2 without murmur, rub or gallop. ABDOMEN: Soft, nontender, not distended, normoactive bowel sounds, no guarding, no rebound, no masses. No hepatomegaly or splenomegaly. MUSCULOSKELETAL: Normal range of motion at all joints. No bony deformities or tenderness. No CVA tenderness. UPPER EXTREMITIES: 2+ pulses, warm, well-perfused. No cyanosis. No clubbing. No peripheral edema. LOWER EXTREMITIES: 2+ pulses, warm, well-perfused. No calf tenderness. 1+ peripheral edema B/L. + erythema, hemosiderin staining NEUROLOGICAL: Cranial nerves II-XII intact. Normal speech. Normal gait. PSYCHIATRIC: Cooperative. Good eye contact. Appropriate mood and affect. SKIN: Warm, dry, normal turgor, no rashes or lesions noted, normal capillary refill. Laboratory Results - last 24 hr 3 05/16/16 05/16/16 05/16/16 03:59 03:59 03:59 WBC 14.0 H RBC 4.29 Hgb 12.4 Hct 38.0 MCV 88.6 MCHC 32.5 RDW 17.9 H Plt Count 232 MPV 7.7 Neutrophils % 79.8 Lymphocytes % 7.8 L Monocytes % 7.6 Eosinophils % 3.3 Basophils % 1.5 INR 1.50 H Sodium 144 Potassium 3.5 Chloride 107 Carbon Dioxide 25 Anion Gap 12 BUN 43 H D Creatinine 2.3 H D Creat Clearance w eGFR 29.89 Random Glucose 186 H D Calcium 7.7 L Total Bilirubin 0.8 AST 22 ALT 13 Alkaline Phosphatase 153 H Creatine Kinase 208 CK-MB (CK-2) 4.197 H CK-MB (CK-2) Rel Index Troponin I 0.07 H B-Natriuretic Peptide 24258.84 H Total Protein 6.5 Albumin 2.5 L Urine Color Urine Appearance Urine pH Ur Specific [place] Urine Protein Urine Glucose (UA) Urine Ketones Urine Blood Urine Nitrite Urine Bilirubin Urine Urobilinogen Ur Leukocyte Esterase Urine RBC Urine WBC Ur Epithelial Cells Urine Mucus 3 Urine Color Straw 05/16/16 03:59 Urine Appearance Clear 05/16/16 03:59 Urine pH 7.0 (5.0-8.0) D 05/16/16 03:59 Ur Specific [place] 1.010 (1.001-1.035) 05/16/16 03:59 Urine Protein 2+ (NEGATIVE) H 05/16/16 03:59 Urine Glucose (UA) 2+ (NEGATIVE) H 05/16/16 03:59 Urine Ketones Negative (NEGATIVE) 05/16/16 03:59 Urine Blood Negative (NEGATIVE) 05/16/16 03:59 Urine Nitrite Negative (NEGATIVE) 05/16/16 03:59 Urine Bilirubin Negative (NEGATIVE) 05/16/16 03:59 Ur Leukocyte Esterase 1+ (NEGATIVE) H 05/16/16 03:59 Urine RBC 1 /hpf (0-3) 05/16/16 03:59 Urine WBC 2 /hpf (3-5) 05/16/16 03:59 Ur Epithelial Cells Rare /hpf (FEW) 05/16/16 03:59 Urine Mucus Rare 05/16/16 03:59 ECG: Afib with RVR, rate 113, QTC 515, no acute ST elevation ASSESSMENT/PLAN: 55yM with PMH Afib (on Eliquis), CAD, CHF, CVA (05/20 Ischemic, 06/19 L- Occipital Hemorrhage), HTN, HLD, IDDM, CKD, Cirrhosis, Diverticulitis, splenic abscess presented to the ED with chest pain. Chest pain - troponin 0.07, below pt normal baseline, trend x 2 more - cardiology consult CHF exac - pt voided 3L+ in ED after 80 lasix, doubtful pt truly adhering to med regimen - cardiology consult, will determine diuretic choice Afib with RVR - cont home toprol, If HR consistently >120 would give metoprolol 5mg IVP HTN - cont home medications HLD - cont home medications IDDM - cont home levemir, novolog 4uSC TID - BGM TIDACHS CKD - creatinine 2.3, on DC was 3.5. Cont to monitor DVT PPX - cont home eliquis FEN - defer IVF - repeat BMP tomorrow - low sodium/diabetic diet Dispo: Pt currently requires inpatient management of his emergent condition. Visit type - Emergency Visit Emergency Visit: Yes ED Registration Date: 05/16/16 Care time: The patient presented to the Emergency Department on the above date and was hospitalized for further evaluation of their emergent condition. - New Patient This patient is new to me today: Yes Date on this admission: 05/16/16 - Critical Care Critical Care patient: No
[2016-05-16] MEDS ORDERED: INSULIN REGULAR HUMAN 100 UNITS/ML *VIAL ONE (08:07)
[2016-05-16] MEDS ORDERED: AMOX TR/POT CLAV 500MG/125MG TABLETS (FP) ONE (08:07)
[2016-05-16] MEDS: INSULIN (NOVOLOG) ASPART 100 UNITS/ML 10ML VIAL SQ SCH ×3 (08:09→17:47)
[2016-05-16] MEDS: AMOX TR/POT CLAV 500MG/125MG TABLETS (FP) PO SCH ×2 (08:09→17:47)
[2016-05-16] MEDS ORDERED: TAMSULOSIN HCL 0.4 MG CAP.ER.24H (FP) ONE (08:33)
[2016-05-16] MEDS: TAMSULOSIN HCL 0.4 MG CAP.ER.24H (FP) PO SCH (08:36)
[2016-05-16 09:56] LABS: MCH 28.8 pg (25.7-33.7); MCHC 31.9 g/dl (32.0-35.9); MEAN CELL VOLUME 90.2 fl (80-96); PLATELET COUNT 229 K/MM3 (134-434); RDW 18.4 % (11.9-15.9); WHITE BLOOD COUNT 15.4 K/mm3 (4.0-10.0)
[2016-05-16] MEDS ORDERED: METOPROLOL SUCCINATE 100 MG TAB.SR.24H (FP) PO SCH (10:00)
--- NOTE | 2016-05-16 10:16 | CON.CARD ---
Cardiology Consult (text) - Consultation Consultation Note: CC: sob HPI: 55 yo with h/o afib with prior ?embolic CVA 05/2014 ([facility]) right visual field cut, syncope 09/19 with ICH at that time vs other entity on MRI and recurrent syncope 12/2015 (unclear etiology), Non-ischemic cardiomyopathy dx 2013 at [facility], HTN, HPL, Rt carotid stenosis, IDDM, RLE cellulitis s/p debridement, MSSA bacteremia 10/2015, DAMIAN not on home cpap, ckd, recently discharged from admisstion with sob/elmo. presents with sob and hypertension. Recently discharged on torsemide 40 mg/day d/c weight 355 lbs standing. States on day of discharge felt more sob. When he returned home felt feverish as well. Then with heaviness feeling in chest, no palps. Adherent to anti-hypertensives and torsemide on d/c. No palps, dizzy, loc, pnd, orthopnea. Sees dr cohen for cardio but poor f/u, compliance. Past Medical History: per hpi Past Surgical History: per hpi Social hx: Former smoker, no etoh or illicits Family Disease History: Heart Disease: Mother (in 60's) ros: per hpi; no nvd, cough, nasal congestion, river, vision changes, muscle pain , gib, hematuria, dysuria meds: Ambulatory Orders Insulin (Novolog) [Novolog Flexpen -] 4 units SQ AC #1 pen 09/07/14 Atorvastatin Ca [Lipitor] 10 mg PO HS #30 tablet 02/26/15 Hydralazine HCl [Apresoline -] 100 mg PO TID #90 tablet 02/26/15 Insulin (Levemir) [Levemir Vial] 28 units SQ HS #7 ml 02/26/15 Isosorbide Mononitrate [Imdur -] 60 mg PO BID #60 tab.sr.24h 02/26/15 Metoprolol Succinate [Toprol XL -] 150 mg PO BID #60 tab.sr.24h 02/26/15 Apixaban [Eliquis -] 5 mg PO BID #60 tablet 10/29/15 Tamsulosin HCl [Flomax -] 0.4 mg PO DAILY@0830 cap.er.24h 04/02/16 Amox-Tr/K Cl [Augmentin 500-125mg Tablet -] 1 tab PO BID@0800,1730 #7 tablet 08/21 Torsemide [Demadex -] 40 mg PO DAILY #30 tablet 05/12/16 Current Medications Amoxicillin/Clavulanate Potassium (Augmentin - 500mg Tablet) 1 tab PO BID@0800, 1730 [facility] Last Admin: 05/16/16 08:09 Dose: 1 tab Apixaban (Eliquis -) 5 mg PO BID [facility] Atorvastatin Calcium (Lipitor -) 10 mg PO HS [facility] Hydralazine HCl (Apresoline -) 100 mg PO TID [facility] Insulin Aspart (Novolog Vial) 4 units SQ TIDCM [facility] Last Admin: 05/16/16 08:09 Dose: 4 units Insulin Detemir (Levemir Vial) 28 units SQ HS [facility] Isosorbide Mononitrate (Imdur -) 60 mg PO BID [facility] Metoprolol Succinate (Toprol Xl -) 150 mg PO BID [facility] Tamsulosin HCl (Flomax -) 0.4 mg PO DAILY@0830 [facility] Last Admin: 05/16/16 08:36 Dose: 0.4 mg Torsemide (Demadex -) 40 mg PO DAILY [facility] Vital Signs - 24 hr 05/16/16 05/16/16 03:40 10:02 Temperature 98.3 F 98 F Pulse Rate 115 H Pulse Rate [ 107 H Apical] Respiratory 28 H 20 Rate Blood Pressure 212/130 Blood Pressure 160/105 [Left Arm] O2 Sat by Pulse 96 96 Oximetry (%) Intake & Output 05/14/16 05/15/16 05/16/16 05/17/16 07:59 07:59 07:59 07:59 Weight 340 lb Constitutional: Yes: No Distress, Obese Eyes: No: Sclera Icterus HENT: No: Nasal Congestion Respiratory: poor air movement No: Accessory Muscle Use. audible wheezes Gastrointestinal: Yes: Normal Bowel Sounds. obese No: Distention, Hepatomegaly, Palpable Mass, tenderness Cardiovascular: Yes: Irregular Rate and Rhythm, tachycardic JVD: tds Carotid Bruit: No PMI: Non-Displaced Heart Sounds: Yes: nl, S1, S2. No: Gallop Murmur: No: Systolic Murmur, Diastolic Murmur Edema: 1+ LE bl, erythema of shins bl Peripheral Pulses: pos dp pt no carotid bruits Integumentary: No: Jaundice diaphoresis Neurological: Yes: Alert, Oriented (x3) Psychiatric: No: Agitated CBC, BMP 05/16/16 09:45 Laboratory Tests 05/12/16 05/16/16 05/16/16 05:35 03:59 03:59 INR 1.50 H Creatinine 3.5 H Total Bilirubin 0.8 AST 22 ALT 13 Alkaline Phosphatase 153 H Troponin I 0.07 H B-Natriuretic Peptide 26031.84 H Albumin 2.5 L ekg: afib, rad. no ischemic changes. tele: afib with rvr 120's. CXR: no chf, but poor quality due to extensive soft tissue obscuring view echo 05/2016: mod LVH. sev decreased lv fn. (global). rv not well seen. 1+ mr, mod tr, small effusion. Echo 10/2015: Moderately decreased LV function (global). Nl RV size/fn. 1+ MR. mild-mod TR. mild ao dilation. Trivial effusion. cath 06/2013: 60-70 rpl1, 80-90 d1, subtotal om1 MIBI 08/2014 (pers): no STs; no ischemia seen; predominantly fixed medium-sized inferior/basal inferolat/apico-inferior defect c/w diaphragm attenuation; EF 46% 55 yo with h/o afib with prior ?embolic CVA 05/2014 ([facility]) right visual field cut , syncope 09/19 with ICH at that time vs other entity on MRI and recurrent syncope 12/2015 (unclear etiology), Non-ischemic cardiomyopathy dx 07/2013 at [facility], HTN, HPL, Rt carotid stenosis, IDDM, RLE cellulitis s/p debridement , MSSA bacteremia 10/2015, DAMIAN not on home cpap, ckd, recently discharged from admisstion with sob/elmo. presents with sob and hypertension. HTN - presented with bp 212/130. - resume anti-hypertensives. chest tightness/sob: - likely 2/2 RVR. rate control as below - durga. First set of enzymes neg. ekg without ischemic changes. - abg - monitor for worsened wheezes on metoprolol. 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 Contrast enhancing lesion seen 06/19 and the prior heme on MRI were in same location and was thought to be most likely 2/2 post CVA hemorrhagic conversion (i.e. without hi risk for recurrent ICH). Less likely low-grade glioma, which would have very low risk of bleeding if AC resumed--hence the recs at that time were for usual AC considerations for his afib, no special precautions (pt failed repeatedly to f/u with neuro as outpatient, and then worsening renal fxn made him hi risk for morena when here last time). -warfarin changed to eliquis on past admits due to pt's repeated refusal to f/u with cardiology or have reliable INRs and make rec'd coumadin dose change, with worrisome CHADS-VASC 6 = estimated risk 9-10%/year, and hence concern he will stroke again on warfarin. - now on eliquis - resume home regimen toprol 150 mg bid, and assess need for uptitration - trigger may be infection, with elevated white count and perceived fevers. flu screen. Infectious work up per pmd. cad: -managed medically, -no signs acs, con't r/o ID. -continue home statin, bb, imdur, hydralazine -con't to defer ASA as pt with stable CAD in past and also on AC NICM: - not clear whether this is an acute heart failure exacerbation at this time. Always has LE edema, pannus without edema which is typical for when he is volume overloaded. - Await standing weight and compare to last d/c weight 355 lbs. Lateral CXR for better assessment. - s/p IV lasix in ER with good uop response. R carotid stenosis: -ADRIENNE with PSV in high 200s cm/sec here, suspicious for >70% stenosis per radiology report -vascular surgery c/s on prior admit felt stenosis is at MOST 70% (deferred further imaging with contrast due to low GFR). Recommended deferring CEA unless imaging suggested >80% stenosis, or if he developed symptoms/acute cerebrovascular event. mild Ao dilation - nl size on most recent echo - Con't bb. Routine outpatient surveillance CKD: - improved from last admit. monitor with diuresis. DAMIAN - CPAP qhs
[2016-05-16 10:28] LABS: ALBUMIN 2.7 g/dl (3.4-5.0); BILIRUBIN,TOTAL 0.9 mg/dL (0.2-1.0); CALCIUM 8.1 mg/dL (8.5-10.1); COCKROFT - GAULT 84.7; CREATININE 2.2 mg/dL (0.7-1.3); MAGNESIUM 2.2 mg/dL (1.8-2.4); PHOSPHOROUS 2.8 mg/dL (2.5-4.9)
[2016-05-16 10:31] LABS: TROPONIN I 0.08 ng/ml (0.00-0.05)
[2016-05-16] MEDS: TORSEMIDE 20 MG TABLET (FP) PO SCH (10:59)
[2016-05-16] MEDS: METOPROLOL SUCCINATE 50 MG TAB.SR.24H (FP) PO SCH (10:59)
[2016-05-16] MEDS: ISOSORBIDE MONONITRATE 60 MG TAB.SR.24H (FP) PO SCH (10:59)
[2016-05-16] MEDS: APIXABAN 5 MG TABLET PO SCH (10:59)
[2016-05-16 12:30] LABS: ARTERIAL BLD GAS O2 SATURATION 97.8 % (90-98.9); ARTERIAL BLOOD GAS BASE EXCESS -0.1 meq/l (-2-2); ARTERIAL BLOOD GAS HCO3 23.6 meq/L (22-26); ARTERIAL BLOOD GAS PO2 92.7 mmHg (80-100); ARTERIAL BLOOD GAS pH 7.42 (7.35-7.45)
[2016-05-16 12:37] LABS: ALLENS TEST POSITIVE; ART PUNCT SITE LEFT RADIAL; LPM/O2% 2L; PT. ON O2? YES; TYPE OF O2 NASAL O2
[2016-05-16] MEDS ORDERED: INSULIN (NOVOLOG) ASPART 100 UNITS/ML 10ML VIAL ONE ×2 (12:48→17:41)
--- NOTE | 2016-05-16 13:08 | EKG ---
Test Reason : Blood Pressure : / mmHG Vent. Rate : 113 BPM Atrial Rate : 119 BPM P-R Int : 000 ms QRS Dur : 100 ms QT Int : 376 ms P-R-T Axes : 000 173 103 degrees QTc Int : 515 ms ATRIAL FIBRILLATION WITH RAPID VENTRICULAR RESPONSE RIGHT AXIS DEVIATION ABNORMAL ECG WHEN COMPARED WITH ECG OF 08-MAY-2016 06:19, NO SIGNIFICANT CHANGE WAS FOUND Confirmed by YUDITH YU MD ([id number]) on 05/16/2016 1:07:42 PM Referred By: Confirmed By:YUDITH YU MD
[2016-05-16] MEDS: hydrALAZINE HCL 50 MG TABLET (FP) PO SCH (13:38)
[2016-05-16 16:23] LABS: TROPONIN I 0.08 ng/ml (0.00-0.05)
[2016-05-17] MEDS: APIXABAN 5 MG TABLET PO SCH ×3 (01:35→21:23)
[2016-05-17] MEDS: hydrALAZINE HCL 50 MG TABLET (FP) PO SCH ×4 (01:36→21:23)
[2016-05-17] MEDS: ISOSORBIDE MONONITRATE 60 MG TAB.SR.24H (FP) PO SCH ×3 (01:36→21:23)
[2016-05-17] MEDS: INSULIN DETEMIR 100 UNITS/ML MDV SQ SCH ×2 (02:17→21:23)
[2016-05-17] MEDS: METOPROLOL SUCCINATE 50 MG TAB.SR.24H (FP) PO SCH ×3 (02:26→21:23)
[2016-05-17] MEDS: ATORVASTATIN CA 10 MG TABLET (FP) PO SCH ×2 (02:26→21:23)
--- NOTE | 2016-05-17 03:03 | HOSP ---
Subjective - Review of Symptoms Events since last encounter: called by nurse to see pt for shaking chills Subjective: Pt reports he is freezing. Sudden onset. Was fine earlier in the day. Rectal temp done 100.1. Denies any cough, abdominal pain, dysuria. Reports continued leg pain, not increased from prior. Physical Examination Vital Signs: Vital Signs Temperature 98.1 F 05/17/16 01:30 Pulse Rate 118 H 05/17/16 01:30 Respiratory Rate 16 05/17/16 01:30 Blood Pressure 165/93 05/17/16 01:30 O2 Sat by Pulse Oximetry (%) 100 05/17/16 01:52 Cardiovascular: Yes: Regular Rate and Rhythm, Tachycardia Respiratory: Yes: CTA Bilaterally Gastrointestinal: Yes: Normal Bowel Sounds, Soft, Abdomen, Obese Extremities: Yes: Other (B/L LE erythematous at baseline, not increased from yesterday. no excessive warmth.) Edema: LLE: 1+, RLE: 1+ Labs: CBC, BMP 05/16/16 09:45 05/16/16 09:45 Hospitalist Encounter Assessment: chills, temp 100.1 rectally - blood cultures ordered, u/a urine culture ordered. - cont to monitor temp, if > 100.4 ID consult and restart IV antibiotics.
[2016-05-17 03:56] LABS: URINE APPEARANCE CLEAR; URINE BILIRUBIN NEGATIVE (NEGATIVE); URINE BLOOD NEGATIVE (NEGATIVE); URINE COLOR LTYELLOW; URINE GLUCOSE (UA) 1+ (NEGATIVE); URINE KETONE NEGATIVE (NEGATIVE); URINE NITRITE NEGATIVE (NEGATIVE); URINE UROBILINOGEN NEGATIVE E.U./dl (0.2-1.0)
[2016-05-17 03:58] LABS: URINE LEUK ESTERASE 1+ (NEGATIVE); URINE PROTEIN 3+ (NEGATIVE)
[2016-05-17 04:03] LABS: URINE BACTERIA RARE /hpf (NONE SEEN); URINE RBC 1 /hpf (0-3); URINE WBC 3 /hpf (3-5)
[2016-05-17 04:16] VITALS: BMI 44.2
[2016-05-17 08:04] LABS: BASOPHIL 0.7 % (0-2.0); EOSINOPHIL 1.6 % (0-4.5); MCH 28.9 pg (25.7-33.7); MCHC 32.3 g/dl (32.0-35.9); MEAN CELL VOLUME 89.4 fl (80-96); MEAN PLT VOLUME 8.1 fl (7.5-11.1); NEUTROPHILS 83.4 % (42.8-82.8); PLATELET COUNT 254 K/MM3 (134-434); RDW 17.8 % (11.9-15.9); WHITE BLOOD COUNT 14.5 K/mm3 (4.0-10.0)
[2016-05-17 08:33] LABS: ALBUMIN 2.4 g/dl (3.4-5.0); BILIRUBIN,TOTAL 1.4 mg/dL (0.2-1.0); CALCIUM 7.9 mg/dL (8.5-10.1); COCKROFT - GAULT 93.59; CREATININE 2.1 mg/dL (0.7-1.3); MAGNESIUM 2.1 mg/dL (1.8-2.4); PHOSPHOROUS 3.1 mg/dL (2.5-4.9); TOT PROT 6.3 g/dl (6.4-8.2)
[2016-05-17] MEDS: INSULIN (NOVOLOG) ASPART 100 UNITS/ML 10ML VIAL SQ SCH ×3 (09:24→17:22)
[2016-05-17] MEDS: TAMSULOSIN HCL 0.4 MG CAP.ER.24H (FP) PO SCH (09:24)
[2016-05-17] MEDS: AMOX TR/POT CLAV 500MG/125MG TABLETS (FP) PO SCH (09:24)
[2016-05-17] MEDS: TORSEMIDE 20 MG TABLET (FP) PO SCH (09:25)
--- NOTE | 2016-05-17 09:55 | PN ---
Progress Note (short form) - Note Progress Note: Subjective: The patient was seen and examined at the bedside, he states he is feeling good today The patient reported compliance to all medications at home. Called [facility] pharmacy (where Rx were sent upon discharge on 05/12) and pharmacist reports Torsemide and Augmentin were never picked up by the patient. Current Medications Generic Name Dose Route Start Last Admin Trade Name Freq PRN Reason Stop Dose Admin Amoxicillin/Clavulanate Potassium 1 tab 05/16/16 08:00 05/17/16 09:24 Augmentin - 500mg Tablet PO 1 tab BID@0800,1730 ANURADHA Administration Apixaban 5 mg 05/16/16 10:00 05/17/16 09:25 Eliquis - PO 5 mg BID ANURADHA Administration Atorvastatin Calcium 10 mg 05/16/16 22:00 05/17/16 02:26 Lipitor - PO 10 mg HS ANURADHA Administration Hydralazine HCl 100 mg 05/16/16 14:00 05/17/16 07:06 Apresoline - PO 100 mg TID ANURADHA Administration Insulin Aspart 4 units 05/16/16 08:00 05/17/16 09:24 Novolog Vial SQ 4 units TIDCM ANURADHA Administration Insulin Detemir 28 units 05/16/16 22:00 05/17/16 02:17 Levemir Vial SQ Not Given HS ANURADHA Isosorbide Mononitrate 60 mg 05/16/16 10:00 05/17/16 09:25 Imdur - PO 60 mg BID ANURADHA Administration Metoprolol Succinate 150 mg 05/16/16 10:00 05/17/16 09:25 Toprol Xl - PO 150 mg BID ANURADHA Administration Nystatin 1 applic 05/17/16 10:00 Nystop Powder - TP DAILY ANURADHA Tamsulosin HCl 0.4 mg 05/16/16 08:30 05/17/16 09:24 Flomax - PO 0.4 mg DAILY@0830 ANURADHA Administration Torsemide 40 mg 05/16/16 10:00 05/17/16 09:25 Demadex - PO 40 mg DAILY ANURADHA Administration Objective: Vital Signs Period Temp Pulse Resp BP Sys/Perez Pulse Ox Last 24 Hr 97.0 F-100.1 F 86-118 16-20 128-165/85-115 95-100 Physical Exam: General: Morbidly obese Lungs: CTA bilaterally Heart: Irregular rate and rhythm Abd: Under pannus erythema, malodorous, moist, thick white coating. Soft, non- distended. Normoactive bowel sounds : Scrotal edema Ext: 1+ B/l lower extremity edema, b/l [place] extremity erythema. B/l knee abrasion Neuro: CN 2-12 intact CBCD WBC 14.5 K/mm3 (4.0-10.0) H 05/17/16 06:20 RBC 4.23 M/mm3 (4.00-5.60) 05/17/16 06:20 Hgb 12.2 GM/dL (11.7-16.9) 05/17/16 06:20 Hct 37.8 % (35.4-49) 05/17/16 06:20 MCV 89.4 fl (80-96) 05/17/16 06:20 MCHC 32.3 g/dl (32.0-35.9) 05/17/16 06:20 RDW 17.8 % (11.9-15.9) H 05/17/16 06:20 Plt Count 254 K/MM3 (134-434) 05/17/16 06:20 MPV 8.1 fl (7.5-11.1) 05/17/16 06:20 CMP Sodium 141 mmol/L (136-145) 05/17/16 06:20 Potassium 3.3 mmol/L (3.5-5.1) L 05/17/16 06:20 Chloride 106 mmol/L (98-107) 05/17/16 06:20 Carbon Dioxide 24 mmol/L (21-32) 05/17/16 06:20 Anion Gap 11 (8-16) 05/17/16 06:20 BUN 38 mg/dL (7-18) H 05/17/16 06:20 Creatinine 2.1 mg/dL (0.7-1.3) H 05/17/16 06:20 Creat Clearance w eGFR 33.20 (>60) 05/17/16 06:20 Random Glucose 125 mg/dL (74-106) H D 05/17/16 06:20 Calcium 7.9 mg/dL (8.5-10.1) L 05/17/16 06:20 Total Bilirubin 1.4 mg/dL (0.2-1.0) H D 05/17/16 06:20 AST 19 U/L (15-37) 05/17/16 06:20 ALT 12 U/L (12-78) 05/17/16 06:20 Alkaline Phosphatase 148 U/L (45-117) H 05/17/16 06:20 Total Protein 6.3 g/dl (6.4-8.2) L 05/17/16 06:20 Albumin 2.4 g/dl (3.4-5.0) L 05/17/16 06:20 CARDIAC ENZYMES Creatine Kinase 161 IU/L (39-308) 05/16/16 15:40 Troponin I 0.08 ng/ml (0.00-0.05) H 05/16/16 15:40 Assessment: This is a 55 year old male with PMHx of A.fib (on eliquis), CAD, CHF , 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 Plan: 1) Cardiology: chest pressure - Borderline elevation in troponin - No current signs of ACS - Continue Lipitor - Continue Imdur - Continue hydralazine - Continue Metoprolol - Appreciate cardiology consult Acute systolic heart failure exacerbation - B/l lower extremity edema - Continue Torsemide (patient was not taking torsemide at home) - Bipap at night, DAMIAN but is non-compliant at home - Daily weights - Strict I&O A.fib - Continue Eliquis - Rate controlled on Metoprolol XL - Appreciate cardiology consult 2) : CKD - Improved, Cr 2.1 today (likely 2/2 patient NOT taking torsemide at home) - Continue to monitor 3) ID: B/l lower extremity erythema, luke under pannus - Patient was discharged on 05/12 with Augmentin but did not slat pickler Rx from pharmacy - Discussed with Dr. Anderson, will observe patient off antibiotics - F/u blood cultures - F/u urine culture - Nystatin powder for under pannus - F/u ID consult 4) Endocrine: IDDM - BGM ACHS - Novolog 4u sq tidac - Levemir 28u sq qhs 5) F/E/N: - Diabetic low sodium diet - Monitor electrolytes 6) Prophylaxis: - On Eliquis - OOB ambulating 7) Dispo: - Requires continued inpatient care CODE STATUS: FULL CODE Visit type - Emergency Visit Emergency Visit: Yes ED Registration Date: 05/17/16 Care time: The patient presented to the Emergency Department on the above date and was hospitalized for further evaluation of their emergent condition. - New Patient This patient is new to me today: Yes Date on this admission: 05/17/16 - Critical Care Critical Care patient: No
[2016-05-17] MEDS: NYSTATIN POWDER 100,000 UNITS/GM - 15 GM TOPICAL POWDER TP SCH (10:00)
--- NOTE | 2016-05-17 10:48 | PN ---
Progress Note (short form) - Note Progress Note: s: no cp sob palps dizzy o: Vital Signs Period Temp Pulse Resp BP Sys/Perez Pulse Ox Last 24 Hr 97.0 F-100.1 F 86-118 16-20 128-165/85-115 95-100 Constitutional: Yes: No Distress, Obese Eyes: No: Sclera Icterus Respiratory: cta bl nl eff Gastrointestinal: Yes: Normal Bowel Sounds. obese No: Distention, Hepatomegaly, Palpable Mass, tenderness Cardiovascular: Yes: Irregular Rhythm, nl rate JVD: tds Heart Sounds: Yes: nl, S1, S2. No: Gallop Murmur: No: Systolic Murmur, Diastolic Murmur Edema: no sig le edema, +erythema of shins bl Integumentary: No: Jaundice diaphoresis Neurological: Yes: Alert, Oriented (x3) Psychiatric: No: Agitated Current Medications Generic Name Dose Route Start Last Admin Trade Name Freq PRN Reason Stop Dose Admin Amoxicillin/Clavulanate Potassium 1 tab 05/16/16 08:00 05/17/16 09:24 Augmentin - 500mg Tablet PO 1 tab BID@0800,1730 ANURADHA Administration Apixaban 5 mg 05/16/16 10:00 05/17/16 09:25 Eliquis - PO 5 mg BID ANURADHA Administration Atorvastatin Calcium 10 mg 05/16/16 22:00 05/17/16 02:26 Lipitor - PO 10 mg HS ANURADHA Administration Hydralazine HCl 100 mg 05/16/16 14:00 05/17/16 07:06 Apresoline - PO 100 mg TID ANURADHA Administration Insulin Aspart 4 units 05/16/16 08:00 05/17/16 09:24 Novolog Vial SQ 4 units TIDCM ANURADAH Administration Insulin Detemir 28 units 05/16/16 22:00 05/17/16 02:17 Levemir Vial SQ Not Given HS ANURADHA Isosorbide Mononitrate 60 mg 05/16/16 10:00 05/17/16 09:25 Imdur - PO 60 mg BID ANURADHA Administration Metoprolol Succinate 150 mg 05/16/16 10:00 05/17/16 09:25 Toprol Xl - PO 150 mg BID ANURADHA Administration Nystatin 1 applic 05/17/16 10:00 Nystop Powder - TP DAILY ANURADHA Tamsulosin HCl 0.4 mg 05/16/16 08:30 05/17/16 09:24 Flomax - PO 0.4 mg DAILY@0830 ANURADHA Administration Torsemide 40 mg 05/16/16 10:00 05/17/16 09:25 Demadex - PO 40 mg DAILY ANURADHA Administration CBC, BMP 05/17/16 06:20 05/17/16 06:20 ekg: afib, rad. no ischemic changes. tele: afib, rate controlled CXR: no chf, but poor quality due to extensive soft tissue obscuring view echo 05/2016: mod LVH. sev decreased lv fn. (global). rv not well seen. 1+ mr, mod tr, small effusion. Echo 10/2015: Moderately decreased LV function (global). Nl RV size/fn. 1+ MR. mild-mod TR. mild ao dilation. Trivial effusion. cath 06/2013: 60-70 rpl1, 80-90 d1, subtotal om1 MIBI 08/2014 (pers): no STs; no ischemia seen; predominantly fixed medium-sized inferior/basal inferolat/apico-inferior defect c/w diaphragm attenuation; EF 46% a/p: 55 yo with h/o afib with prior ?embolic CVA 05/2014 ([facility]) right visual field cut, syncope 09/19 with ICH at that time vs other entity on MRI and recurrent syncope 12/2015 (unclear etiology), Non-ischemic cardiomyopathy dx 2013 at [facility], HTN, HPL, Rt carotid stenosis, IDDM, RLE cellulitis s/p debridement, MSSA bacteremia 10/2015, DAMIAN not on home cpap, ckd, recently discharged from admisstion with sob/elmo. presents with sob and hypertension. HTN - presented with bp 212/130. - after resuming anti-hypertensives bp improved chest tightness/sob: - likely 2/2 RVR. rate controlled and feeling better now - borderline troponin x3 consistent with prior baseline values, no indication of acs. ekg without ischemic changes. 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 Contrast enhancing lesion seen 06/19 and the prior heme on MRI were in same location and was thought to be most likely 2/2 post CVA hemorrhagic conversion (i.e. without hi risk for recurrent ICH). Less likely low-grade glioma, which would have very low risk of bleeding if AC resumed--hence the recs at that time were for usual AC considerations for his afib, no special precautions (pt failed repeatedly to f/u with neuro as outpatient, and then worsening renal fxn made him hi risk for morena when here last time). -warfarin changed to eliquis on past admits due to pt's repeated refusal to f/u with cardiology or have reliable INRs and make rec'd coumadin dose change, with worrisome CHADS-VASC 6 = estimated risk 9-10%/year, and hence concern he will stroke again on warfarin. - now on eliquis - resumed home regimen toprol 150 mg bid, HR improved today - trigger may be infection, with elevated white count and fevers. Infectious work up per pmd. cad: -managed medically, -no signs acs, con't r/o SD. -continue home statin, bb, imdur, hydralazine -con't to defer ASA as pt with stable CAD in past and also on AC chronic syst chf, NICM: -stable. wt at baseline in 250s, no chf symptoms -cont po torsemide R carotid stenosis: -ADRIENNE with PSV in high 200s cm/sec here, suspicious for >70% stenosis per radiology report -vascular surgery c/s on prior admit felt stenosis is at MOST 70% (deferred further imaging with contrast due to low GFR). Recommended deferring CEA unless imaging suggested >80% stenosis, or if he developed symptoms/acute cerebrovascular event. mild Ao dilation - nl size on most recent echo - Con't bb. Routine outpatient surveillance CKD: - improved from last admit. DAMIAN - CPAP qhs
--- NOTE | 2016-05-17 13:25 | CONSULT ---
Consult Consult Specialty:: infectious diseases Reason for Consultation:: cellulitis of the legs - History of Present Illness Chief Complaint: sob History of Present Illness: 55 year old male with a past medical history of Afib (on Eliquis), CAD, CHF, CVA (05/20 Ischemic, 06/19 L- Occipital Hemorrhage), HTN, HLD, IDDM, CKD, Cirrhosis, Diverticulitis, splenic abscess who presented to the ED with chest pressure since 10pm on 05/15/16. Pt states he feels like someone is standing on his chest. Pt denies palpitations. He states that he is taking ALL of his medications as prescribed. patient on last admission nwas on iv abx for his cellulitis of the legs which improved and after patient went home he did not take the remaining course of abx now he is abck with sob and leukocytosis also he has developed fungal infection on the groin with some redness of the scrotum - History Source History Provided By: Patient Limitations to Obtaining History: No Limitations - Past Medical History W[employer]: Yes: CVA (On 06/02/14 while in [facility]; right visual field cut), Other (hemorrhagic post. circualtion cerebral infarction while on anticoagulation therapy.) Cardio/Vascular: Yes: AFIB (Last dose Xarelto about two weeks ago; on heparin drip thru 06/11/14), CHF (Systolic), HTN, Hyperlipdemia, Other (Non-ischemic cardiomyopathy diagnosed 07/19 at [facility]) Pulmonary: Yes: Sleep Apnea (Not on home CPAP) Renal/: Yes: Renal Failure, Renal Inusuff, Other (Frequent urination) Infectious Disease: Yes: Other (right foot abcess) Endocrine: Yes: Diabetes Mellitus - Past Surgical History Past Surgical History: Yes: None - Alcohol/Substance Use Hx Alcohol Use: No History of Substance Use: reports: None - Smoking History Smoking history: Never smoked Have you smoked in the past 12 months: No - Social History Usual Living Arrangement: Alone ADL: Independent Home Medications - Allergies Allergies/Adverse Reactions: Allergies Allergy/AdvReac Type Severity Reaction Status Date / Time ciprofloxacin [From Cipro] Allergy Severe Rash Verified 05/16/16 03:42 ciprofloxacin HCl Allergy Severe Rash Verified 05/16/16 03:42 [From Cipro] - Home Medications Home Medications: Ambulatory Orders Insulin (Novolog) [Novolog Flexpen -] 4 units SQ AC #1 pen 09/07/14 Atorvastatin Ca [Lipitor] 10 mg PO HS #30 tablet 02/26/15 Hydralazine HCl [Apresoline -] 100 mg PO TID #90 tablet 02/26/15 Insulin (Levemir) [Levemir Vial] 28 units SQ HS #7 ml 02/26/15 Isosorbide Mononitrate [Imdur -] 60 mg PO BID #60 tab.sr.24h 02/26/15 Metoprolol Succinate [Toprol XL -] 150 mg PO BID #60 tab.sr.24h 02/26/15 Apixaban [Eliquis -] 5 mg PO BID #60 tablet 10/29/15 Tamsulosin HCl [Flomax -] 0.4 mg PO DAILY@0830 cap.er.24h 04/02/16 Amox-Tr/K Cl [Augmentin 500-125mg Tablet -] 1 tab PO BID@0800,1730 #7 tablet 08/21 Torsemide [Demadex -] 40 mg PO DAILY #30 tablet 05/12/16 Family Disease History - Family Disease History Family Disease History: Heart Disease: Mother ([place] 60's) Review of Systems - Review of Systems Constitutional: reports: No Symptoms Eyes: reports: No Symptoms HENT: reports: No Symptoms Neck: reports: No Symptoms Cardiovascular: reports: Shortness of Breath Respiratory: reports: SOB, SOB on Exertion Gastrointestinal: reports: No Symptoms Genitourinary: reports: No Symptoms Musculoskeletal: reports: Other Integumentary: reports: Change in Color, Erythema (groin and pannus region), Rash Neurological: reports: No Symptoms Endocrine: reports: No Symptoms Hematology/Lymphatic: reports: No Symptoms Psychiatric: reports: No Symptoms Physical Exam Vital Signs: Vital Signs Temperature 100.1 F H 05/17/16 03:00 Pulse Rate 114 H 05/17/16 02:30 Respiratory Rate 20 05/17/16 02:30 Blood Pressure 141/95 05/17/16 02:30 O2 Sat by Pulse Oximetry (%) 95 05/17/16 02:30 Constitutional: Yes: Well Nourished, Mild Distress, Obese Eyes: Yes: Conjunctiva Clear HENT: Yes: Atraumatic Neck: Yes: Supple Cardiovascular: Yes: S1, S2 Respiratory: Yes: Regular, Poor Air Entry, Other (crackles) Gastrointestinal: Yes: Normal Bowel Sounds, Soft Musculoskeletal: Yes: WNL Extremities: Yes: WNL Integumentary: Yes: Erythema (groing region) Neurological: Yes: Alert, Oriented Psychiatric: Yes: Alert, Oriented Imaging - Results Chest X-ray: Report Reviewed, Image Reviewed Assessment/Plan a/p: 55 yo with h/o afib with prior ?embolic CVA 05/2014 ([facility]) right visual field cut, syncope 09/19 with ICH at that time vs other entity on MRI and recurrent syncope 12/2015 (unclear etiology), Non-ischemic cardiomyopathy dx 2013 at [facility], HTN, HPL, Rt carotid stenosis, IDDM, RLE cellulitis s/p debridement, MSSA bacteremia 10/2015, DAMIAN not on home cpap, ckd, recently discharged from admisstion with sob/elmo. presents with sob and hypertension. HTN chest tightness/sob: Afib, h/o ischemic cva 05/20, cad: chronic syst chf, NICM: R carotid stenosis: CKD: DAMIAN fungal infection of the groin leukocytosis plan i am going to watch patient for 24 hrs and see how the swelling goes rest continue as per primary team wbc slowly trending down cardio on case
[2016-05-17] MEDS ORDERED: POTASSIUM CHLORIDE TABS 20 MEQ TABLET.ER (FP) PO ONE (13:47)
[2016-05-18] MEDS: hydrALAZINE HCL 50 MG TABLET (FP) PO SCH ×3 (06:18→21:38)
[2016-05-18 07:33] LABS: MCH 29.1 pg (25.7-33.7); MCHC 32.5 g/dl (32.0-35.9); MEAN CELL VOLUME 89.6 fl (80-96); MEAN PLT VOLUME 7.9 fl (7.5-11.1); PLATELET COUNT 224 K/MM3 (134-434); RDW 17.6 % (11.9-15.9); WHITE BLOOD COUNT 13.1 K/mm3 (4.0-10.0)
--- NOTE | 2016-05-18 07:44 | PN ---
Physical Exam: SUBJECTIVE: Patient seen and examined at bedside. OBJECTIVE: Vital Signs Period Temp Pulse Resp BP Sys/Perez Pulse Ox Last 24 Hr 97.8 F-99.5 F 86-103 18-20 119-136/65-90 95 GENERAL: The patient is awake, alert, and fully oriented, in no acute distress. HEAD: Normal with no signs of trauma. EYES: PERRL, extraocular movements intact, sclera anicteric, conjunctiva clear. No ptosis. LUNGS: Breath sounds equal, clear to auscultation bilaterally, no wheezes, no crackles, no accessory muscle use. HEART: Regular rate and rhythm, S1, S2 without murmur, rub or gallop. ABDOMEN: Under pannus skin is red, swollen, exquistely tender, malodorous; + guarding, does not allow full exam EXTREMITIES: venous stasis changes bilaterally, mildly erythematous NEUROLOGICAL: Cranial nerves II through XII grossly intact. Normal speech, gait not observed. Laboratory Results - last 24 hr 05/17/16 05/17/16 05/18/16 17:19 20:46 06:10 WBC RBC Hgb Hct MCV MCHC RDW Plt Count MPV Sodium Potassium Chloride Carbon Dioxide Anion Gap BUN Creatinine Creat Clearance w eGFR POC Glucometer 153 171 130 Random Glucose Calcium Total Bilirubin AST ALT Alkaline Phosphatase Total Protein Albumin 05/18/16 05/18/16 05/18/16 06:30 06:30 12:06 WBC 13.1 H RBC 4.08 Hgb 11.9 Hct 36.5 MCV 89.6 MCHC 32.5 RDW 17.6 H Plt Count 224 MPV 7.9 Sodium 141 Potassium 3.8 Chloride 103 Carbon Dioxide 28 Anion Gap 10 BUN 44 H Creatinine 2.5 H Creat Clearance w eGFR 27.15 POC Glucometer 109 Random Glucose 109 H Calcium 8.2 L Total Bilirubin 1.1 H D AST 18 ALT 12 Alkaline Phosphatase 134 H Total Protein 6.3 L Albumin 2.5 L Active Medications Generic Name Dose Route Start Last Admin Trade Name Freq PRN Reason Stop Dose Admin Apixaban 5 mg 05/16/16 10:00 05/17/16 21:23 Eliquis - PO 5 mg BID ANURADHA Administration Atorvastatin Calcium 10 mg 05/16/16 22:00 05/17/16 21:23 Lipitor - PO 10 mg HS ANURADHA Administration Hydralazine HCl 100 mg 04/11/17 14:00 05/18/16 06:18 Apresoline - PO 100 mg TID ANURADHA Administration Insulin Aspart 4 units 05/16/16 08:00 05/17/16 17:22 Novolog Vial SQ 4 units TIDCM ANURADHA Administration Insulin Detemir 28 units 05/16/16 22:00 05/17/16 21:23 Levemir Vial SQ 28 units HS ANURADHA Administration Isosorbide Mononitrate 60 mg 05/16/16 10:00 05/17/16 21:23 Imdur - PO 60 mg BID ANURADHA Administration Metoprolol Succinate 150 mg 05/16/16 10:00 05/17/16 21:23 Toprol Xl - PO 150 mg BID ANURADHA Administration Nystatin 1 applic 05/17/16 10:00 05/17/16 10:00 Nystop Powder - TP 1 applic DAILY ANURADHA Administration Tamsulosin HCl 0.4 mg 05/16/16 08:30 05/17/16 09:24 Flomax - PO 0.4 mg DAILY@0830 ANURADHA Administration Torsemide 40 mg 05/16/16 10:00 05/17/16 09:25 Demadex - PO 40 mg DAILY ANURADHA Administration ASSESSMENT/PLAN: 55 year-old male with a significant PMH of HTN, HLD, CAD, afib on Eliquis, systolic heart failure, CVA (ischemic 05/20, hemorrhagic 06/19), IDDM, CKD Stage IV, and cirrhosis. Admitted for chest pain, and hypertensive urgency. Chest pain Coronary artery disease --flat trending troponins, CXR unremarkable, ECG not suggestive of acute ischemic event --per cardiology, chest pressure/pain likely secondary to afib with rapid rate; since rate has been controlled, discomfort has resolved --continue Lipitor, metoprolol, imdur, hydralazine; no ASA Hypertensive urgency --BP was 212/130 on arrival; now much better controlled 136/65 --continue metoprolol, hydralazine, torsemide, imdur Atrial fibrillation with RVR --rate-controlled on metoprolol --continue Eliquis Chronic systolic heart failure --continue home dose torsemide Chronic kidney disease Stage 4 --Cr 2.5 which is baseline NIDDM --Levemir --Novolog sliding scale coverage Bilateral lower extremity erythema --patient was discharged on 05/12 with Augmentin but 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 Full Code. Visit type - Emergency Visit Emergency Visit: Yes ED Registration Date: 05/17/16 Care time: The patient presented to the Emergency Department on the above date and was hospitalized for further evaluation of their emergent condition. - New Patient This patient is new to me today: Yes Date on this admission: 05/18/16 - Critical Care Critical Care patient: No
[2016-05-18 08:11] LABS: ALBUMIN 2.5 g/dl (3.4-5.0); CALCIUM 8.2 mg/dL (8.5-10.1)
[2016-05-18 08:15] LABS: BILIRUBIN,TOTAL 1.1 mg/dL (0.2-1.0); COCKROFT - GAULT 78.98; CREATININE 2.5 mg/dL (0.7-1.3); TOT PROT 6.3 g/dl (6.4-8.2)
[2016-05-18] MEDS: TAMSULOSIN HCL 0.4 MG CAP.ER.24H (FP) PO SCH (08:26)
[2016-05-18] MEDS: INSULIN (NOVOLOG) ASPART 100 UNITS/ML 10ML VIAL SQ SCH ×3 (08:26→17:54)
--- NOTE | 2016-05-18 10:29 | PN ---
Progress Note (short form) - Note Progress Note: s: no cp sob palps dizzy o: Vital Signs Period Temp Pulse Resp BP Sys/Perez Pulse Ox Last 24 Hr 97.8 F-99.5 F 86-103 18-20 119-137/65-90 95 Constitutional: Yes: No Distress, Obese Eyes: No: Sclera Icterus Respiratory: cta bl nl eff Gastrointestinal: Yes: Normal Bowel Sounds. obese No: Distention, Hepatomegaly, Palpable Mass, tenderness Cardiovascular: Yes: Irregular Rhythm, nl rate JVD: tds Heart Sounds: Yes: nl, S1, S2. No: Gallop Murmur: No: Systolic Murmur, Diastolic Murmur Edema: no sig le edema, +erythema of shins bl Integumentary: No: Jaundice diaphoresis Neurological: Yes: Alert, Oriented (x3) Psychiatric: No: Agitated Current Medications Generic Name Dose Route Start Last Admin Trade Name Freq PRN Reason Stop Dose Admin Apixaban 5 mg 05/16/16 10:00 05/17/16 21:23 Eliquis - PO 5 mg BID ANURADHA Administration Atorvastatin Calcium 10 mg 05/16/16 22:00 05/17/16 21:23 Lipitor - PO 10 mg HS ANURADHA Administration Hydralazine HCl 100 mg 05/16/16 14:00 05/18/16 06:18 Apresoline - PO 100 mg TID ANURADHA Administration Insulin Aspart 4 units 05/16/16 08:00 05/18/16 08:26 Novolog Vial SQ 4 units TIDCM ANURAHDA Administration Insulin Detemir 28 units 05/16/16 22:00 05/17/16 21:23 Levemir Vial SQ 28 units HS ANURADHA Administration Isosorbide Mononitrate 60 mg 05/16/16 10:00 05/17/16 21:23 Imdur - PO 60 mg BID ANURADHA Administration Metoprolol Succinate 150 mg 05/16/16 10:00 05/17/16 21:23 Toprol Xl - PO 150 mg BID ANURADHA Administration Nystatin 1 applic 05/17/16 10:00 05/17/16 10:00 Nystop Powder - TP 1 applic DAILY ANURADHA Administration Tamsulosin HCl 0.4 mg 05/16/16 08:30 05/18/16 08:26 Flomax - PO 0.4 mg DAILY@0830 ANURADHA Administration Torsemide 40 mg 05/16/16 10:00 05/17/16 09:25 Demadex - PO 40 mg DAILY ANURADHA Administration CBC, BMP 05/18/16 06:30 05/18/16 06:30 ekg: afib, rad. no ischemic changes. tele: afib, rate controlled CXR: no chf, but poor quality due to extensive soft tissue obscuring view echo 05/2016: mod LVH. sev decreased lv fn. (global). rv not well seen. 1+ mr, mod tr, small effusion. Echo 10/2015: Moderately decreased LV function (global). Nl RV size/fn. 1+ MR. mild-mod TR. mild ao dilation. Trivial effusion. cath 06/2013: 60-70 rpl1, 80-90 d1, subtotal om1 MIBI 08/2014 (pers): no STs; no ischemia seen; predominantly fixed medium-sized inferior/basal inferolat/apico-inferior defect c/w diaphragm attenuation; EF 46% a/p: 55 yo with h/o afib with prior ?embolic CVA 05/2014 ([facility]) right visual field cut, syncope 09/19 with ICH at that time vs other entity on MRI and recurrent syncope 12/2015 (unclear etiology), Non-ischemic cardiomyopathy dx 2013 at [facility], HTN, HPL, Rt carotid stenosis, IDDM, RLE cellulitis s/p debridement, MSSA bacteremia 10/2015, DAMIAN not on home cpap, ckd, recently discharged from admisstion with sob/elmo. presents with sob and hypertension. HTN - presented with bp 212/130. - after resuming anti-hypertensives bp improved chest tightness/sob: - likely 2/2 RVR. rate controlled and feeling better now - borderline troponin x3 consistent with prior baseline values, no indication of acs. ekg without ischemic changes. 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 Contrast enhancing lesion seen 06/19 and the prior heme on MRI were in same location and was thought to be most likely 2/2 post CVA hemorrhagic conversion (i.e. without hi risk for recurrent ICH). Less likely low-grade glioma, which would have very low risk of bleeding if AC resumed--hence the recs at that time were for usual AC considerations for his afib, no special precautions (pt failed repeatedly to f/u with neuro as outpatient, and then worsening renal fxn made him hi risk for morena when here last time). -warfarin changed to eliquis on past admits due to pt's repeated refusal to f/u with cardiology or have reliable INRs and make rec'd coumadin dose change, with worrisome CHADS-VASC 6 = estimated risk 9-10%/year, and hence concern he will stroke again on warfarin. - now on eliquis - resumed home regimen toprol 150 mg bid, HR improved today - trigger may be infection, with elevated white count and fevers. Infectious work up per pmd/ID cad: -managed medically, -no signs acs, con't r/o OK. -continue home statin, bb, imdur, hydralazine -con't to defer ASA as pt with stable CAD in past and also on AC chronic syst chf, NICM: -stable. wt near baseline. no chf symptoms -cont po torsemide R carotid stenosis: -ADRIENNE with PSV in high 200s cm/sec here, suspicious for >70% stenosis per radiology report -vascular surgery c/s on prior admit felt stenosis is at MOST 70% (deferred further imaging with contrast due to low GFR). Recommended deferring CEA unless imaging suggested >80% stenosis, or if he developed symptoms/acute cerebrovascular event. mild Ao dilation - nl size on most recent echo - Con't bb. Routine outpatient surveillance CKD: - cr near baseline DAMIAN - CPAP qhs cardiac hou remains stable
[2016-05-18] MEDS: TORSEMIDE 20 MG TABLET (FP) PO SCH (10:32)
[2016-05-18] MEDS: ISOSORBIDE MONONITRATE 60 MG TAB.SR.24H (FP) PO SCH ×2 (10:33→21:39)
[2016-05-18] MEDS: NYSTATIN POWDER 100,000 UNITS/GM - 15 GM TOPICAL POWDER TP SCH (10:33)
[2016-05-18] MEDS: APIXABAN 5 MG TABLET PO SCH ×2 (10:33→21:55)
[2016-05-18] MEDS: METOPROLOL SUCCINATE 50 MG TAB.SR.24H (FP) PO SCH ×2 (10:33→21:39)
--- NOTE | 2016-05-18 15:44 | PN ---
Progress Note, Physician History of Present Illness: patient evaluated, now complaining of pain in the groin and scrotum breathing has improved patient feels much better from his primary condition - Current Medication List Current Medications: Active Medications Apixaban (Eliquis -) 5 mg PO BID [facility] Last Admin: 05/18/16 10:33 Dose: 5 mg Atorvastatin Calcium (Lipitor -) 10 mg PO HS [facility] Last Admin: 05/17/16 21:23 Dose: 10 mg Hydralazine HCl (Apresoline -) 100 mg PO TID [facility] Last Admin: 05/18/16 06:18 Dose: 100 mg Clindamycin Phosphate (Cleocin 600 Mg Premix Ivpb -) 50 mls @ 100 mls/hr IVPB Q8H-IV ANURADHA Piperacillin Sod/Tazobactam (Sod 2.25 gm/ Dextrose) 50 mls @ 100 mls/hr IVPB Q8H-IV [facility] PRN Reason: Protocol Insulin Aspart (Novolog Vial) 4 units SQ TIDCM [facility] Last Admin: 05/18/16 12:18 Dose: 4 units Insulin Detemir (Levemir Vial) 28 units SQ [facility] Last Admin: 05/17/16 21:23 Dose: 28 units Isosorbide Mononitrate (Imdur -) 60 mg PO BID [facility] Last Admin: 05/18/16 10:33 Dose: 60 mg Metoprolol Succinate (Toprol Xl -) 150 mg PO BID [facility] Last Admin: 05/18/16 10:33 Dose: 150 mg Nystatin (Nystop Powder -) 1 applic TP DAILY [facility] Last Admin: 05/18/16 10:33 Dose: 1 applic Tamsulosin HCl (Flomax -) 0.4 mg PO DAILY@0830 [facility] Last Admin: 05/18/16 08:26 Dose: 0.4 mg Torsemide (Demadex -) 40 mg PO DAILY [facility] Last Admin: 05/18/16 10:32 Dose: 40 mg - Objective Vital Signs: Vital Signs Temperature 98.1 F 05/18/16 14:27 Pulse Rate 94 H 05/18/16 14:27 Respiratory Rate 18 05/18/16 14:27 Blood Pressure 161/88 05/18/16 14:27 O2 Sat by Pulse Oximetry (%) 93 L 05/18/16 10:00 Constitutional: Yes: Calm Cardiovascular: Yes: Pulse Irregular, S1, S2 Respiratory: Yes: Poor Air Entry Gastrointestinal: Yes: Normal Bowel Sounds, Soft Genitourinary: Yes: Scrotal Edema (scrotal cellulitis tenderness over the ecrotum) Musculoskeletal: Yes: WNL Extremities: Yes: Other (groin erythema and fungal infection) Edema: LLE: 1+, RLE: 1+ Integumentary: Yes: Erythema (of the scrotum) Wound/Incision: Yes: Clean/Dry Neurological: Yes: Alert, Oriented Psychiatric: Yes: Alert, Oriented Labs: CBC, BMP 05/18/16 06:30 05/18/16 06:30 INR, PTT INR 1.50 (0.82-1.09) H 05/16/16 03:59 Assessment/Plan a/p: 55 yo with h/o afib with prior ?embolic CVA 05/2014 ([facility]) right visual field cut, syncope 09/19 with ICH at that time vs other entity on MRI and recurrent syncope 12/2015 (unclear etiology), Non-ischemic cardiomyopathy dx 2013 at [facility], HTN, HPL, Rt carotid stenosis, IDDM, RLE cellulitis s/p debridement, MSSA bacteremia 10/2015, DAMIAN not on home cpap, ckd, recently discharged from admisstion with sob/elmo. presents with sob and hypertension. HTN chest tightness/sob: Afib, h/o ischemic cva 05/20, cad: chronic syst chf, NICM: R carotid stenosis: CKD: DAMIAN fungal infection of the groin leukocytosis cellulitis of the scrotum patient cellulitits has increased from yesterday now has tenderness over the scrotum plan started on abx stat u/s of the scrotum if patient u/s shows finding do ct scan without contrast very close monitoring
[2016-05-18] MEDS: CLINDAMYCIN 600MG PREMIX IVPB 50 ML IVPB SCH (17:08)
[2016-05-18] MEDS: PIPERACILLIN/TAZOB 2.25 GM 50 ML IVPB SCH (17:54)
[2016-05-18] MEDS: ATORVASTATIN CA 10 MG TABLET (FP) PO SCH (21:39)
[2016-05-18] MEDS: INSULIN DETEMIR 100 UNITS/ML MDV SQ SCH (21:42)
[2016-05-19] MEDS: CLINDAMYCIN 600MG PREMIX IVPB 50 ML IVPB SCH ×3 (02:16→17:25)
[2016-05-19] MEDS: PIPERACILLIN/TAZOB 2.25 GM 50 ML IVPB SCH ×3 (02:45→17:25)
[2016-05-19] MEDS: hydrALAZINE HCL 50 MG TABLET (FP) PO SCH ×3 (06:29→22:11)
[2016-05-19 07:22] LABS: BASOPHIL 0.8 % (0-2.0); EOSINOPHIL 4.6 % (0-4.5); MCH 29.6 pg (25.7-33.7); MCHC 33.2 g/dl (32.0-35.9); MEAN CELL VOLUME 89.2 fl (80-96); MEAN PLT VOLUME 8.2 fl (7.5-11.1); NEUTROPHILS 75.4 % (42.8-82.8); PLATELET COUNT 222 K/MM3 (134-434); RDW 17.6 % (11.9-15.9)
[2016-05-19 07:33] LABS: ALBUMIN 2.5 g/dl (3.4-5.0); CALCIUM 8.1 mg/dL (8.5-10.1)
[2016-05-19 07:37] LABS: BILIRUBIN,TOTAL 0.9 mg/dL (0.2-1.0); COCKROFT - GAULT 76.37; CREATININE 2.6 mg/dL (0.7-1.3); TOT PROT 6.5 g/dl (6.4-8.2)
[2016-05-19] MEDS: INSULIN (NOVOLOG) ASPART 100 UNITS/ML 10ML VIAL SQ SCH ×2 (09:05→13:39)
[2016-05-19] MEDS: TAMSULOSIN HCL 0.4 MG CAP.ER.24H (FP) PO SCH (09:22)
[2016-05-19] MEDS ORDERED: PT OWN MED DRAWER 7, Y5N ONE (09:23)
[2016-05-19] MEDS: TORSEMIDE 20 MG TABLET (FP) PO SCH (09:25)
[2016-05-19] MEDS: APIXABAN 5 MG TABLET PO SCH ×2 (09:25→22:11)
[2016-05-19] MEDS: NYSTATIN POWDER 100,000 UNITS/GM - 15 GM TOPICAL POWDER TP SCH (09:27)
--- NOTE | 2016-05-19 10:57 | PN ---
Progress Note, Physician History of Present Illness: patient starting to improve redness and erythema of the scrotum improving - Current Medication List Current Medications: Active Medications Apixaban (Eliquis -) 5 mg PO BID [facility] Last Admin: 05/19/16 09:25 Dose: 5 mg Atorvastatin Calcium (Lipitor -) 10 mg PO HS [facility] Last Admin: 05/18/16 21:39 Dose: 10 mg Hydralazine HCl (Apresoline -) 100 mg PO TID [facility] Last Admin: 05/19/16 06:29 Dose: 100 mg Clindamycin Phosphate (Cleocin 600 Mg Premix Ivpb -) 50 mls @ 100 mls/hr IVPB Q8H-IV [facility] Last Admin: 05/19/16 09:24 Dose: 100 mls/hr Piperacillin Sod/Tazobactam Sod (Zosyn 2.25gm Ivpb (Pre-Docked)) 50 mls @ 100 mls/hr IVPB Q8H-IV [facility] PRN Reason: Protocol Last Admin: 05/19/16 10:31 Dose: 100 mls/hr Insulin Aspart (Novolog Vial) 4 units SQ TIDCM [facility] Last Admin: 05/19/16 09:05 Dose: 4 units Insulin Detemir (Levemir Vial) 28 units SQ HS [facility] Last Admin: 05/18/16 21:42 Dose: 28 units Isosorbide Mononitrate (Imdur -) 60 mg PO BID [facility] Last Admin: 05/18/16 21:39 Dose: 60 mg Metoprolol Succinate (Toprol Xl -) 150 mg PO BID [facility] Last Admin: 05/18/16 21:39 Dose: 150 mg Nystatin (Nystop Powder -) 1 applic TP DAILY [facility] Last Admin: 05/19/16 09:27 Dose: 1 applic Tamsulosin HCl (Flomax -) 0.4 mg PO DAILY@0830 [facility] Last Admin: 05/19/16 09:22 Dose: 0.4 mg Torsemide (Demadex -) 40 mg PO DAILY [facility] Last Admin: 05/19/16 09:25 Dose: 40 mg - Objective Vital Signs: Vital Signs Temperature 98.5 F 05/19/16 06:00 Pulse Rate 93 H 05/19/16 06:00 Respiratory Rate 18 05/19/16 06:00 Blood Pressure 129/72 05/19/16 06:00 O2 Sat by Pulse Oximetry (%) 95 05/18/16 21:00 Constitutional: Yes: No Distress, Calm, Obese Neck: Yes: Supple, Trachea Midline Cardiovascular: Yes: S1, S2 Respiratory: Yes: Regular, Poor Air Entry Gastrointestinal: Yes: Normal Bowel Sounds, Soft Genitourinary: Yes: Scrotal Edema, Other (scrotal cellulitis resolving) Musculoskeletal: Yes: Other Extremities: Yes: Other Integumentary: Yes: Erythema (groin) Neurological: Yes: Alert, Oriented Psychiatric: Yes: Alert, Oriented Labs: CBC, BMP 05/19/16 05:35 05/19/16 05:35 INR, PTT INR 1.50 (0.82-1.09) H 05/16/16 03:59 - ....Imaging Ultrasound: Report Reviewed, Image Reviewed Assessment/Plan HTN chest tightness/sob: Afib, h/o ischemic cva 05/20, cad: chronic syst chf, NICM: R carotid stenosis: CKD: DAMIAN fungal infection of the groin leukocytosis cellulitis of the scrotum cellulitis improving plan started on abx u/s findings noted very close watch
[2016-05-19] MEDS: ISOSORBIDE MONONITRATE 60 MG TAB.SR.24H (FP) PO SCH ×2 (13:39→22:11)
[2016-05-19] MEDS: METOPROLOL SUCCINATE 50 MG TAB.SR.24H (FP) PO SCH ×2 (13:39→22:11)
[2016-05-19] MEDS: INSULIN SLIDING SCALE (NOVOLOG) 1 VIAL SQ SCH ×2 (17:24→22:13)
--- NOTE | 2016-05-19 18:20 | PN ---
Physical Exam: SUBJECTIVE: Patient seen and examined OBJECTIVE: Vital Signs Period Temp Pulse Resp BP Sys/Perez Pulse Ox Last 24 Hr 97.2 F-98.5 F 82-98 18-20 117-142/51-92 95 GENERAL: The patient is awake, alert, and fully oriented, in no acute distress. HEAD: Normal with no signs of trauma. EYES: PERRL, extraocular movements intact, sclera anicteric, conjunctiva clear. No ptosis. LUNGS: Breath sounds equal, clear to auscultation bilaterally, no wheezes, no crackles, no accessory muscle use. HEART: Regular rate and rhythm, S1, S2 without murmur, rub or gallop. ABDOMEN: Under pannus skin is red, swollen, tender EXTREMITIES: venous stasis changes bilaterally, mildly erythematous NEUROLOGICAL: Cranial nerves II through XII grossly intact. Normal speech, gait not observed Laboratory Results - last 24 hr 05/18/16 05/18/16 05/19/16 17:52 21:25 05:35 WBC 13.0 H RBC 4.00 Hgb 11.8 Hct 35.7 MCV 89.2 MCHC 33.2 RDW 17.6 H Plt Count 222 MPV 8.2 Neutrophils % 75.4 Lymphocytes % 9.5 D Monocytes % 9.7 Eosinophils % 4.6 H D Basophils % 0.8 Sodium Potassium Chloride Carbon Dioxide Anion Gap BUN Creatinine Creat Clearance w eGFR POC Glucometer 130 142 Random Glucose Calcium Magnesium Total Bilirubin AST ALT Alkaline Phosphatase Total Protein Albumin 05/19/16 05/19/16 05/19/16 05:35 06:30 12:19 WBC RBC Hgb Hct MCV MCHC RDW Plt Count MPV Neutrophils % Lymphocytes % Monocytes % Eosinophils % Basophils % Sodium 139 Potassium 3.9 Chloride 104 Carbon Dioxide 25 Anion Gap 10 BUN 49 H Creatinine 2.6 H Creat Clearance w eGFR 25.95 POC Glucometer 90 103 Random Glucose 93 Calcium 8.1 L Magnesium 2.0 Total Bilirubin 0.9 AST 17 ALT 11 L Alkaline Phosphatase 131 H Total Protein 6.5 Albumin 2.5 L 05/19/16 17:15 WBC RBC Hgb Hct MCV MCHC RDW Plt Count MPV Neutrophils % Lymphocytes % Monocytes % Eosinophils % Basophils % Sodium Potassium Chloride Carbon Dioxide Anion Gap BUN Creatinine Creat Clearance w eGFR POC Glucometer 109 Random Glucose Calcium Magnesium Total Bilirubin AST ALT Alkaline Phosphatase Total Protein Albumin Active Medications Generic Name Dose Route Start Last Admin Trade Name Freq PRN Reason Stop Dose Admin Apixaban 5 mg 05/16/16 10:00 05/19/16 09:25 Eliquis - PO 5 mg BID ANURADHA Administration Atorvastatin Calcium 10 mg 05/16/16 22:00 05/18/16 21:39 Lipitor - PO 10 mg HS ANURADHA Administration Hydralazine HCl 50 mg 05/19/16 22:00 Apresoline - PO BID ANURADHA Clindamycin Phosphate 50 mls @ 100 mls/hr 05/18/16 15:45 05/19/16 17:25 Cleocin 600 Mg Premix Ivpb - IVPB 100 mls/hr Q8H-IV ANURADHA Administration Piperacillin Sod/Tazobactam Sod 50 mls @ 100 mls/hr 05/18/16 15:45 05/19/16 17: 25 Zosyn 2.25gm Ivpb (Pre-Docked) IVPB 100 mls/hr Q8H-IV ANURADHA Administration Protocol Insulin Aspart 1 vial 05/19/16 16:30 05/19/16 17:24 Novolog Vial Sliding Scale - SQ Not Given ACHS [facility] Protocol Insulin Detemir 28 units 05/16/16 22:00 05/18/16 21:42 Levemir Vial SQ 28 units HS [facility] Administration Isosorbide Mononitrate 60 mg 05/16/16 10:00 05/19/16 13:39 Imdur - PO 60 mg BID ANURADHA Administration Metoprolol Succinate 150 mg 05/16/16 10:00 05/19/16 13:39 Toprol Xl - PO 150 mg BID ANURADHA Administration Nystatin 1 applic 05/17/16 10:00 05/19/16 09:27 Nystop Powder - TP 1 applic DAILY ANURADHA Administration Tamsulosin HCl 0.4 mg 05/16/16 08:30 05/19/16 09:22 Flomax - PO 0.4 mg DAILY@0830 ANURADHA Administration Torsemide 40 mg 05/16/16 10:00 05/19/16 09:25 Demadex - PO 40 mg DAILY ANURADHA Administration ASSESSMENT/PLAN 55 year-old male with a significant PMH of HTN, HLD, CAD, afib on Eliquis, systolic heart failure, CVA (ischemic 05/20, hemorrhagic 06/19), IDDM, CKD Stage IV, and cirrhosis. Admitted for chest pain, and hypertensive urgency. Chest pain Coronary artery disease --flat trending troponins, CXR unremarkable, ECG not suggestive of acute ischemic event --per cardiology, chest pressure/pain likely secondary to afib with rapid rate; since rate has been controlled, discomfort has resolved --continue Lipitor, metoprolol, imdur, hydralazine; no ASA Hypertensive urgency, resolved --patient has been complaining of some dizziness with ambulation and BP has dropped to lower side; titrating hydralazine down --continue metoprolol, hydralazine, torsemide, imdur Atrial fibrillation with RVR --rate-controlled on metoprolol --continue Eliquis Chronic systolic heart failure --continue torsemide Chronic kidney disease Stage 4 --Cr 2.6 which is ~ baseline NIDDM --Levemir --Novolog sliding scale coverage Bilateral lower extremity erythema --patient was discharged on 05/12 with Augmentin but did not tile picker from pharmacy --observe off antibiotics Lower abdominal/groin cellulitis Acute epididymitis --continue clindamycin (day #2) and Zosyn (day #2) F/E/N Fluids: PO intake adequate Electrolytes: replete as indicated Nutrition: low sodium, diabetic diet DVT prophylaxis: on Eliquis; oob, ambulation Dispo: continues to require inpatient care. Full Code. Visit type - Emergency Visit Emergency Visit: Yes ED Registration Date: 05/17/16 Care time: The patient presented to the Emergency Department on the above date and was hospitalized for further evaluation of their emergent condition. - New Patient This patient is new to me today: No - Critical Care Critical Care patient: No
[2016-05-19] MEDS ORDERED: INSULIN (NOVOLOG) ASPART 100 UNITS/ML 10ML VIAL ONE (21:58)
[2016-05-19] MEDS: INSULIN DETEMIR 100 UNITS/ML MDV SQ SCH (22:11)
[2016-05-19] MEDS: ATORVASTATIN CA 10 MG TABLET (FP) PO SCH (22:11)
[2016-05-20] MEDS: CLINDAMYCIN 600MG PREMIX IVPB 50 ML IVPB SCH ×3 (01:26→18:12)
[2016-05-20] MEDS: PIPERACILLIN/TAZOB 2.25 GM 50 ML IVPB SCH ×3 (02:21→18:56)
[2016-05-20] MEDS: INSULIN SLIDING SCALE (NOVOLOG) 1 VIAL SQ SCH ×4 (06:53→22:27)
[2016-05-20] MEDS: NYSTATIN POWDER 100,000 UNITS/GM - 15 GM TOPICAL POWDER TP SCH (09:52)
[2016-05-20] MEDS: METOPROLOL SUCCINATE 50 MG TAB.SR.24H (FP) PO SCH ×2 (09:52→21:48)
[2016-05-20] MEDS: APIXABAN 5 MG TABLET PO SCH ×2 (09:52→21:46)
[2016-05-20] MEDS: hydrALAZINE HCL 50 MG TABLET (FP) PO SCH ×2 (09:53→21:48)
[2016-05-20] MEDS: TORSEMIDE 20 MG TABLET (FP) PO SCH (09:53)
[2016-05-20] MEDS: TAMSULOSIN HCL 0.4 MG CAP.ER.24H (FP) PO SCH (09:53)
[2016-05-20] MEDS: ISOSORBIDE MONONITRATE 60 MG TAB.SR.24H (FP) PO SCH ×2 (09:53→21:47)
--- NOTE | 2016-05-20 12:52 | PN ---
Progress Note, Physician History of Present Illness: patient feeling much better tenderness decreased redness decreased still cellulitis present - Current Medication List Current Medications: Active Medications Apixaban (Eliquis -) 5 mg PO BID [facility] Last Admin: 05/20/16 09:52 Dose: 5 mg Atorvastatin Calcium (Lipitor -) 10 mg PO HS [facility] Last Admin: 05/19/16 22:11 Dose: 10 mg Hydralazine HCl (Apresoline -) 50 mg PO BID [facility] Last Admin: 05/20/16 09:53 Dose: 50 mg Clindamycin Phosphate (Cleocin 600 Mg Premix Ivpb -) 50 mls @ 100 mls/hr IVPB Q8H-IV [facility] Last Admin: 05/20/16 09:53 Dose: 100 mls/hr Piperacillin Sod/Tazobactam Sod (Zosyn 2.25gm Ivpb (Pre-Docked)) 50 mls @ 100 mls/hr IVPB Q8H-IV [facility] PRN Reason: Protocol Last Admin: 05/20/16 10:55 Dose: 100 mls/hr Insulin Aspart (Novolog Vial Sliding Scale -) 1 vial SQ [facility] PRN Reason: Protocol Last Admin: 05/20/16 12:01 Dose: Not Given Insulin Detemir (Levemir Vial) 28 units SQ [facility] Last Admin: 05/19/16 22:11 Dose: 28 units Isosorbide Mononitrate (Imdur -) 60 mg PO BID [facility] Last Admin: 05/20/16 09:53 Dose: 60 mg Metoprolol Succinate (Toprol Xl -) 150 mg PO BID [facility] Last Admin: 05/20/16 09:52 Dose: 150 mg Nystatin (Nystop Powder -) 1 applic TP DAILY [facility] Last Admin: 05/20/16 09:52 Dose: 1 applic Tamsulosin HCl (Flomax -) 0.4 mg PO DAILY@0830 [facility] Last Admin: 05/20/16 09:53 Dose: 0.4 mg Torsemide (Demadex -) 40 mg PO DAILY [facility] Last Admin: 05/20/16 09:53 Dose: 40 mg - Objective Vital Signs: Vital Signs Temperature 98.2 F 05/20/16 06:15 Pulse Rate 86 05/20/16 06:15 Respiratory Rate 20 05/20/16 06:15 Blood Pressure 140/90 05/20/16 08:04 O2 Sat by Pulse Oximetry (%) 96 05/19/16 22:20 Constitutional: Yes: No Distress, Calm, Obese Cardiovascular: Yes: S1, S2 Respiratory: Yes: Regular, Poor Air Entry Musculoskeletal: Yes: WNL Extremities: Yes: WNL Integumentary: Yes: Erythema, Other Neurological: Yes: Alert, Oriented Labs: CBC, BMP 05/19/16 05:35 05/19/16 05:35 INR, PTT INR 1.50 (0.82-1.09) H 05/16/16 03:59 Assessment/Plan HTN chest tightness/sob: Afib, h/o ischemic cva 05/20, cad: chronic syst chf, NICM: R carotid stenosis: CKD: DAMIAN fungal infection of the groin leukocytosis cellulitis of the scrotum cellulitis improving rt side of the scrotum resolved left side still red but better groin much better now plan continue abx continue to monitor
--- NOTE | 2016-05-20 20:04 | PN ---
Physical Exam: SUBJECTIVE: Patient seen and examined OBJECTIVE: Vital Signs Period Temp Pulse Resp BP Sys/Perez Pulse Ox Last 24 Hr 97.6 F-99.2 F 85-93 18-20 118-155/55-103 96-96 GENERAL: The patient is awake, alert, and fully oriented, in no acute distress. HEAD: Normal with no signs of trauma. EYES: PERRL, extraocular movements intact, sclera anicteric, conjunctiva clear. No ptosis. LUNGS: Breath sounds equal, clear to auscultation bilaterally, no wheezes, no crackles, no accessory muscle use. HEART: Regular rate and rhythm, S1, S2 without murmur, rub or gallop. ABDOMEN: Under pannus erythematous rash entire area extending to groin and upper thighs; scrotum less edematous, ++tenderness EXTREMITIES: venous stasis changes bilaterally, mildly erythematous NEUROLOGICAL: Cranial nerves II through XII grossly intact. Normal speech, gait not observed CBCD WBC 13.0 K/mm3 (4.0-10.0) H 05/19/16 05:35 RBC 4.00 M/mm3 (4.00-5.60) 05/19/16 05:35 Hgb 11.8 GM/dL (11.7-16.9) 05/19/16 05:35 Hct 35.7 % (35.4-49) 05/19/16 05:35 MCV 89.2 fl (80-96) 05/19/16 05:35 MCHC 33.2 g/dl (32.0-35.9) 05/19/16 05:35 RDW 17.6 % (11.9-15.9) H 05/19/16 05:35 Plt Count 222 K/MM3 (134-434) 05/19/16 05:35 MPV 8.2 fl (7.5-11.1) 05/19/16 05:35 CMP Sodium 139 mmol/L (136-145) 05/19/16 05:35 Potassium 3.9 mmol/L (3.5-5.1) 05/19/16 05:35 Chloride 104 mmol/L (98-107) 05/19/16 05:35 Carbon Dioxide 25 mmol/L (21-32) 05/19/16 05:35 Anion Gap 10 (8-16) 05/19/16 05:35 BUN 49 mg/dL (7-18) H 05/19/16 05:35 Creatinine 2.6 mg/dL (0.7-1.3) H 05/19/16 05:35 Creat Clearance w eGFR 25.95 (>60) 05/19/16 05:35 Calcium 8.1 mg/dL (8.5-10.1) L 05/19/16 05:35 Total Bilirubin 0.9 mg/dL (0.2-1.0) 05/19/16 05:35 AST 17 U/L (15-37) 05/19/16 05:35 ALT 11 U/L (12-78) L 05/19/16 05:35 Alkaline Phosphatase 131 U/L (45-117) H 05/19/16 05:35 Total Protein 6.5 g/dl (6.4-8.2) 05/19/16 05:35 Albumin 2.5 g/dl (3.4-5.0) L 05/19/16 05:35 Active Medications Generic Name Dose Route Start Last Admin Trade Name Raphaelq PRN Reason Stop Dose Admin Apixaban 5 mg 05/16/16 10:00 05/20/16 09:52 Eliquis - PO 5 mg BID ANURADHA Administration Atorvastatin Calcium 10 mg 05/16/16 22:00 05/19/16 22:11 Lipitor - PO 10 mg HS ANURADHA Administration Hydralazine HCl 50 mg 05/19/16 22:00 05/20/16 09:53 Apresoline - PO 50 mg BID ANURADHA Administration Clindamycin Phosphate 50 mls @ 100 mls/hr 05/18/16 15:45 05/20/16 18:12 Cleocin 600 Mg Premix Ivpb - IVPB 100 mls/hr Q8H-IV ANURADHA Administration Piperacillin Sod/Tazobactam Sod 50 mls @ 100 mls/hr 05/18/16 15:45 05/20/16 18: 56 Zosyn 2.25gm Ivpb (Pre-Docked) IVPB 100 mls/hr Q8H-IV ANURADHA Administration Protocol Insulin Aspart 1 vial 05/19/16 16:30 05/20/16 18:13 Novolog Vial Sliding Scale - SQ 2 unit ACHS ANURADHA Administration Protocol Insulin Detemir 28 units 05/16/16 22:00 04/14/17 22:11 Levemir Vial SQ 28 units HS ANURADHA Administration Isosorbide Mononitrate 60 mg 05/16/16 10:00 05/20/16 09:53 Imdur - PO 60 mg BID ANURADHA Administration Metoprolol Succinate 150 mg 05/16/16 10:00 05/20/16 09:52 Toprol Xl - PO 150 mg BID ANURADHA Administration Nystatin 1 applic 05/17/16 10:00 05/20/16 09:52 Nystop Powder - TP 1 applic DAILY ANURADHA Administration Tamsulosin HCl 0.4 mg 05/16/16 08:30 05/20/16 09:53 Flomax - PO 0.4 mg DAILY@0830 ANURADHA Administration Torsemide 40 mg 05/16/16 10:00 05/20/16 09:53 Demadex - PO 40 mg DAILY ANURADHA Administration ASSESSMENT/PLAN 55 year-old male with a significant PMH of HTN, HLD, CAD, afib on Eliquis, systolic heart failure, CVA (ischemic 05/20, hemorrhagic 06/19), IDDM, CKD Stage IV, and cirrhosis. Admitted for chest pain, and hypertensive urgency. Chest pain Coronary artery disease --flat trending troponins, CXR unremarkable, ECG not suggestive of acute ischemic event --per cardiology, chest pressure/pain likely secondary to afib with rapid rate; since rate has been controlled, discomfort has resolved --continue Lipitor, metoprolol, imdur, hydralazine; no ASA Hypertensive urgency, resolved --BP better-controlled, less labile --continue metoprolol, hydralazine at lower dose, torsemide, imdur Atrial fibrillation with RVR --rate-controlled on metoprolol --continue Eliquis Chronic systolic heart failure --continue torsemide Chronic kidney disease Stage 4 --Cr 2.6 which is ~ baseline NIDDM --Levemir --Novolog sliding scale coverage Bilateral lower extremity erythema, chronic --patient was discharged on 05/12 with Augmentin but did not pecan picker from pharmacy --started on antibiotics for groin cellulitis, acute epididymitis Lower abdominal/groin cellulitis Acute epididymitis --improving --continue clindamycin (day #3) and Zosyn (day #3) --ID following F/E/N Fluids: PO intake adequate Electrolytes: replete as indicated Nutrition: low sodium, diabetic diet DVT prophylaxis: on Eliquis; oob, ambulation Dispo: continues to require inpatient care. Full Code. Visit type - Emergency Visit Emergency Visit: Yes ED Registration Date: 05/17/16 Care time: The patient presented to the Emergency Department on the above date and was hospitalized for further evaluation of their emergent condition. - New Patient This patient is new to me today: No - Critical Care Critical Care patient: No
[2016-05-20] MEDS ORDERED: PT OWN MED DRAWER 7, Y5N ONE (21:39)
[2016-05-20] MEDS: ATORVASTATIN CA 10 MG TABLET (FP) PO SCH (21:47)
[2016-05-20] MEDS: INSULIN DETEMIR 100 UNITS/ML MDV SQ SCH (21:48)
[2016-05-21] MEDS: CLINDAMYCIN 600MG PREMIX IVPB 50 ML IVPB SCH ×3 (02:35→18:16)
[2016-05-21] MEDS: PIPERACILLIN/TAZOB 2.25 GM 50 ML IVPB SCH ×3 (03:19→18:48)
[2016-05-21] MEDS: INSULIN SLIDING SCALE (NOVOLOG) 1 VIAL SQ SCH ×4 (06:22→21:56)
[2016-05-21 07:30] LABS: BASOPHIL 0.9 % (0-2.0); EOSINOPHIL 5.6 % (0-4.5); MCHC 32.7 g/dl (32.0-35.9); MEAN CELL VOLUME 88.7 fl (80-96); MEAN PLT VOLUME 8.1 fl (7.5-11.1); NEUTROPHILS 71.3 % (42.8-82.8); PLATELET COUNT 209 K/MM3 (134-434); RDW 17.8 % (11.9-15.9); WHITE BLOOD COUNT 12.7 K/mm3 (4.0-10.0)
[2016-05-21 07:56] LABS: ALBUMIN 2.7 g/dl (3.4-5.0); CALCIUM 8.2 mg/dL (8.5-10.1); MAGNESIUM 2.4 mg/dL (1.8-2.4)
[2016-05-21 08:02] LABS: COCKROFT - GAULT 73.22; CREATININE 2.7 mg/dL (0.7-1.3); TOT PROT 6.7 g/dl (6.4-8.2)
[2016-05-21] MEDS: TAMSULOSIN HCL 0.4 MG CAP.ER.24H (FP) PO SCH (08:54)
[2016-05-21] MEDS: ISOSORBIDE MONONITRATE 60 MG TAB.SR.24H (FP) PO SCH ×2 (09:03→21:55)
[2016-05-21] MEDS: METOPROLOL SUCCINATE 50 MG TAB.SR.24H (FP) PO SCH ×2 (09:03→21:55)
[2016-05-21] MEDS: hydrALAZINE HCL 50 MG TABLET (FP) PO SCH ×2 (09:03→21:54)
[2016-05-21] MEDS: TORSEMIDE 20 MG TABLET (FP) PO SCH (09:04)
[2016-05-21] MEDS ORDERED: PT OWN MED DRAWER 7, Y5N ONE (09:06)
[2016-05-21] MEDS: APIXABAN 5 MG TABLET PO SCH ×2 (09:07→21:55)
[2016-05-21] MEDS: NYSTATIN POWDER 100,000 UNITS/GM - 15 GM TOPICAL POWDER TP SCH (09:08)
--- NOTE | 2016-05-21 14:32 | PN ---
Progress Note, Physician History of Present Illness: redness and swelling and erythema improving patient stable tenderness minimal - Current Medication List Current Medications: Active Medications Apixaban (Eliquis -) 5 mg PO BID [facility] Last Admin: 05/21/16 09:07 Dose: 5 mg Atorvastatin Calcium (Lipitor -) 10 mg PO HS [facility] Last Admin: 05/20/16 21:47 Dose: 10 mg Hydralazine HCl (Apresoline -) 50 mg PO BID [facility] Last Admin: 05/21/16 09:03 Dose: 50 mg Clindamycin Phosphate (Cleocin 600 Mg Premix Ivpb -) 50 mls @ 100 mls/hr IVPB Q8H-IV [facility] Last Admin: 05/21/16 09:04 Dose: 100 mls/hr Piperacillin Sod/Tazobactam Sod (Zosyn 2.25gm Ivpb (Pre-Docked)) 50 mls @ 100 mls/hr IVPB Q8H-IV [facility] PRN Reason: Protocol Last Admin: 05/21/16 09:04 Dose: 100 mls/hr Insulin Aspart (Novolog Vial Sliding Scale -) 1 vial SQ [facility] PRN Reason: Protocol Last Admin: 05/21/16 06:22 Dose: Not Given Insulin Detemir (Levemir Vial) 28 units SQ [facility] Last Admin: 05/20/16 21:48 Dose: 28 units Isosorbide Mononitrate (Imdur -) 60 mg PO BID [facility] Last Admin: 05/21/16 09:03 Dose: 60 mg Metoprolol Succinate (Toprol Xl -) 150 mg PO BID [facility] Last Admin: 05/21/16 09:03 Dose: 150 mg Nystatin (Nystop Powder -) 1 applic TP DAILY [facility] Last Admin: 05/21/16 09:08 Dose: 1 applic Tamsulosin HCl (Flomax -) 0.4 mg PO DAILY@0830 [facility] Last Admin: 05/21/16 08:54 Dose: 0.4 mg Torsemide (Demadex -) 40 mg PO DAILY [facility] Last Admin: 05/21/16 09:04 Dose: 40 mg - Objective Vital Signs: Vital Signs Temperature 98.4 F 05/21/16 14:00 Pulse Rate 90 05/21/16 14:00 Respiratory Rate 20 05/21/16 14:00 Blood Pressure 151/71 05/21/16 14:00 O2 Sat by Pulse Oximetry (%) 96 05/20/16 21:00 Constitutional: Yes: No Distress, Calm, Obese Cardiovascular: Yes: S1, S2 Respiratory: Yes: Poor Air Entry Genitourinary: Yes: Scrotal Edema, Other (erythema improving tenderness minimal) Musculoskeletal: Yes: Other Extremities: Yes: Other Neurological: Yes: Alert, Oriented Psychiatric: Yes: Alert, Oriented Labs: CBC, BMP 05/21/16 06:25 05/21/16 06:25 INR, PTT INR 1.50 (0.82-1.09) H 05/16/16 03:59 Assessment/Plan HTN chest tightness/sob: Afib, h/o ischemic cva 05/20, cad: chronic syst chf, NICM: R carotid stenosis: CKD: DAMIAN fungal infection of the groin leukocytosis cellulitis of the scrotum improving plan continue abx continue to monitor
--- NOTE | 2016-05-21 15:47 | PN ---
Physical Exam: SUBJECTIVE: Patient seen and examined at bedside. Feels well. OBJECTIVE: Vital Signs Period Temp Pulse Resp BP Sys/Perez Pulse Ox Last 24 Hr 97.7 F-99.2 F 81-90 18-20 130-154/71-106 96-96 GENERAL: The patient is awake, alert, and fully oriented, in no acute distress. HEAD: Normal with no signs of trauma. EYES: PERRL, extraocular movements intact, sclera anicteric, conjunctiva clear. No ptosis. LUNGS: Breath sounds equal, clear to auscultation bilaterally, no wheezes, no crackles, no accessory muscle use. HEART: Regular rate and rhythm, S1, S2 without murmur, rub or gallop. ABDOMEN: Under pannus erythematous rash entire area extending to groin and upper thighs; scrotum less edematous, ++tenderness EXTREMITIES: venous stasis changes bilaterally, mildly erythematous NEUROLOGICAL: Cranial nerves II through XII grossly intact. Normal speech, gait not observed Laboratory Results - last 24 hr 05/20/16 05/20/16 05/20/16 12:00 18:08 21:44 WBC RBC Hgb Hct MCV MCHC RDW Plt Count MPV Neutrophils % Lymphocytes % Monocytes % Eosinophils % Basophils % Sodium Potassium Chloride Carbon Dioxide Anion Gap BUN Creatinine Creat Clearance w eGFR POC Glucometer 113 157 139 Random Glucose Calcium Magnesium Total Bilirubin AST ALT Alkaline Phosphatase Total Protein Albumin 05/21/16 05/21/16 05/21/16 06:21 06:25 06:25 WBC 12.7 H RBC 4.29 Hgb 12.5 Hct 38.1 MCV 88.7 MCHC 32.7 RDW 17.8 H Plt Count 209 MPV 8.1 Neutrophils % 71.3 Lymphocytes % 11.2 Monocytes % 11.0 H Eosinophils % 5.6 H Basophils % 0.9 Sodium 139 Potassium 4.3 Chloride 103 Carbon Dioxide 25 Anion Gap 11 BUN 48 H Creatinine 2.7 H Creat Clearance w eGFR 24.84 POC Glucometer 77 Random Glucose 70 L D Calcium 8.2 L Magnesium 2.4 Total Bilirubin 1.0 AST 18 ALT 14 D Alkaline Phosphatase 134 H Total Protein 6.7 Albumin 2.7 L 05/21/16 11:54 WBC RBC Hgb Hct MCV MCHC RDW Plt Count MPV Neutrophils % Lymphocytes % Monocytes % Eosinophils % Basophils % Sodium Potassium Chloride Carbon Dioxide Anion Gap BUN Creatinine Creat Clearance w eGFR POC Glucometer 108 Random Glucose Calcium Magnesium Total Bilirubin AST ALT Alkaline Phosphatase Total Protein Albumin Active Medications Generic Name Dose Route Start Last Admin Trade Name Brianna PRN Reason Stop Dose Admin Apixaban 5 mg 05/16/16 10:00 05/21/16 09:07 Eliquis - PO 5 mg BID ANURADHA Administration Atorvastatin Calcium 10 mg 05/16/16 22:00 05/20/16 21:47 Lipitor - PO 10 mg HS ANURADHA Administration Hydralazine HCl 50 mg 05/19/16 22:00 05/21/16 09:03 Apresoline - PO 50 mg BID ANURADHA Administration Clindamycin Phosphate 50 mls @ 100 mls/hr 05/18/16 15:45 05/21/16 09:04 Cleocin 600 Mg Premix Ivpb - IVPB 100 mls/hr Q8H-IV ANURADHA Administration Piperacillin Sod/Tazobactam Sod 50 mls @ 100 mls/hr 05/18/16 15:45 05/21/16 09: 04 Zosyn 2.25gm Ivpb (Pre-Docked) IVPB 100 mls/hr Q8H-IV ANURADHA Administration Protocol Insulin Aspart 1 vial 05/19/16 16:30 05/21/16 14:50 Novolog Vial Sliding Scale - SQ Not Given ACHS [facility] Protocol Insulin Detemir 28 units 05/16/16 22:00 05/20/16 21:48 Levemir Vial SQ 28 units HS ANURADHA Administration Isosorbide Mononitrate 60 mg 05/16/16 10:00 05/21/16 09:03 Imdur - PO 60 mg BID ANURADHA Administration Metoprolol Succinate 150 mg 05/16/16 10:00 05/21/16 09:03 Toprol Xl - PO 150 mg BID ANURADHA Administration Nystatin 1 applic 05/17/16 10:00 05/21/16 09:08 Nystop Powder - TP 1 applic DAILY ANURADHA Administration Tamsulosin HCl 0.4 mg 05/16/16 08:30 05/21/16 08:54 Flomax - PO 0.4 mg DAILY@0830 ANURADHA Administration Torsemide 40 mg 05/16/16 10:00 05/21/16 09:04 Demadex - PO 40 mg DAILY ANURADHA Administration ASSESSMENT/PLAN 55 year-old male with a significant PMH of HTN, HLD, CAD, afib on Eliquis, systolic heart failure, CVA (ischemic 05/20, hemorrhagic 06/19), IDDM, CKD Stage IV, and cirrhosis. Admitted for chest pain, and hypertensive urgency. Chest pain Coronary artery disease --flat trending troponins, CXR unremarkable, ECG not suggestive of acute ischemic event --per cardiology, chest pressure/pain likely secondary to afib with rapid rate; since rate has been controlled, discomfort has resolved --continue Lipitor, metoprolol, imdur, hydralazine; no ASA Hypertensive urgency, resolved --BP better-controlled, less labile; dizziness has resolved with slightly higher BP --continue metoprolol, hydralazine at lower dose, torsemide, imdur Atrial fibrillation with RVR --rate-controlled on metoprolol --continue Eliquis Chronic systolic heart failure --continue torsemide Chronic kidney disease Stage 4 --Cr 2.7, baseline ~2.6 --weight has remained stable NIDDM --Levemir --Novolog sliding scale coverage Bilateral lower extremity erythema, chronic Lower abdominal/groin cellulitis Acute epididymitis --improving --continue clindamycin (day #4) and Zosyn (day #4) --ID following F/E/N Fluids: PO intake adequate Electrolytes: replete as indicated Nutrition: low sodium, diabetic diet DVT prophylaxis: on Eliquis; oob, ambulation Dispo: continues to require inpatient care. Full Code. Visit type - Emergency Visit Emergency Visit: Yes ED Registration Date: 05/17/16 Care time: The patient presented to the Emergency Department on the above date and was hospitalized for further evaluation of their emergent condition. - New Patient This patient is new to me today: No - Critical Care Critical Care patient: No
[2016-05-21] MEDS: ATORVASTATIN CA 10 MG TABLET (FP) PO SCH (21:55)
[2016-05-21] MEDS: INSULIN DETEMIR 100 UNITS/ML MDV SQ SCH (21:57)
--- NOTE | 2016-05-21 22:52 | PN ---
Progress Note (short form) - Note Progress Note: CC: afib with rvr. s: no cp sob palps dizzy. doesn't feel like he's holding on to fluid. o: Current Medications Apixaban (Eliquis -) [address] [facility] Last Admin: 05/21/16 21:55 Dose: 5 mg Atorvastatin Calcium (Lipitor -) [address] [facility] Last Admin: 05/21/16 21:55 Dose: 10 mg Hydralazine HCl (Apresoline -) [address] [facility] Last Admin: 05/21/16 21:54 Dose: 50 mg Clindamycin Phosphate (Cleocin 600 Mg Premix Ivpb -) 50 mls @ 100 mls/hr IVPB Q8H-IV [facility] Last Admin: 05/21/16 18:16 Dose: 100 mls/hr Piperacillin Sod/Tazobactam Sod (Zosyn 2.25gm Ivpb (Pre-Docked)) 50 mls @ 100 mls/hr IVPB Q8H-IV [facility] PRN Reason: Protocol Last Admin: 05/21/16 18:48 Dose: 100 mls/hr Insulin Aspart (Novolog Vial Sliding Scale -) [address] [facility] PRN Reason: Protocol Last Admin: 05/21/16 21:56 Dose: Not Given Insulin Detemir (Levemir Vial) 28 units SQ [facility] Last Admin: 05/21/16 21:57 Dose: 28 units Isosorbide Mononitrate (Imdur -) [address] [facility] Last Admin: 05/21/16 21:55 Dose: 60 mg Metoprolol Succinate (Toprol Xl -) [address] [facility] Last Admin: 05/21/16 21:55 Dose: 150 mg Nystatin (Nystop Powder -) [address] [facility] Last Admin: 05/21/16 09:08 Dose: 1 applic Tamsulosin HCl (Flomax -) 0.4 mg PO DAILY@0830 [facility] Last Admin: 05/21/16 08:54 Dose: 0.4 mg Torsemide (Demadex -) [address] [facility] Last Admin: 05/21/16 09:04 Dose: 40 mg Vital Signs - 24 hr 05/21/16 05/21/16 05/21/16 06:00 09:00 10:00 Temperature 97.7 F 98.1 F Pulse Rate 81 81 Respiratory 20 18 Rate Blood Pressure 147/93 130/81 O2 Sat by Pulse 96 Oximetry (%) 05/21/16 05/21/16 05/21/16 14:00 18:00 21:00 Temperature 98.4 F 98.4 F Pulse Rate 90 83 Respiratory 20 20 20 Rate Blood Pressure 151/71 147/83 O2 Sat by Pulse 95 Oximetry (%) 05/21/16 22:00 Temperature 98.8 F Pulse Rate 81 Respiratory 20 Rate Blood Pressure 140/86 O2 Sat by Pulse Oximetry (%) Intake & Output 05/19/16 05/20/16 05/21/16 05/22/16 07:59 07:59 07:59 07:59 Intake Total 1230 1200 100 Output Total 200 Balance 1230 1200 100 -200 Weight 362 lb 4.8 oz 361 lb 7 oz 360 lb 11.2 oz Constitutional: Yes: No Distress, Obese Eyes: No: Sclera Icterus Respiratory: cta bl nl eff Gastrointestinal: Yes: Normal Bowel Sounds. obese No: Distention, Hepatomegaly, Palpable Mass, tenderness Cardiovascular: Yes: Irregular Rhythm, nl rate JVD: tds Heart Sounds: Yes: nl, S1, S2. No: Gallop Murmur: No: Systolic Murmur, Diastolic Murmur Edema: no sig le edema, +erythema of shins bl Integumentary: No: Jaundice diaphoresis Neurological: Yes: Alert, Oriented (x3) Psychiatric: No: Agitated CBC, BMP 05/21/16 06:25 05/21/16 06:25 ekg: afib, rad. no ischemic changes. tele: afib, rate controlled CXR: no chf, but poor quality due to extensive soft tissue obscuring view echo 05/2016: mod LVH. sev decreased lv fn. (global). rv not well seen. 1+ mr, mod tr, small effusion. Echo 10/2015: Moderately decreased LV function (global). Nl RV size/fn. 1+ MR. mild-mod TR. mild ao dilation. Trivial effusion. cath 06/2013: 60-70 rpl1, 80-90 d1, subtotal om1 MIBI 08/2014 (pers): no STs; no ischemia seen; predominantly fixed medium-sized inferior/basal inferolat/apico-inferior defect c/w diaphragm attenuation; EF 46% a/p: 55 yo with h/o afib with prior ?embolic CVA 05/2014 ([facility]) right visual field cut, syncope 09/19 with ICH at that time vs other entity on MRI and recurrent syncope 12/2015 (unclear etiology), Non-ischemic cardiomyopathy dx 2013 at [facility], HTN, HPL, Rt carotid stenosis, IDDM, RLE cellulitis s/p debridement, MSSA bacteremia 10/2015, DAMIAN not on home cpap, ckd, recently discharged from admisstion with sob/elmo. presents with sob and hypertension. HTN - presented with bp 212/130. - after resuming anti-hypertensives bp improved chest tightness/sob: - likely 2/2 RVR. rate controlled and feeling better now - borderline troponin x3 consistent with prior baseline values, no indication of acs. ekg without ischemic changes. 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 Contrast enhancing lesion seen 06/19 and the prior heme on MRI were in same location and was thought to be most likely 2/2 post CVA hemorrhagic conversion (i.e. without hi risk for recurrent ICH). Less likely low-grade glioma, which would have very low risk of bleeding if AC resumed--hence the recs at that time were for usual AC considerations for his afib, no special precautions (pt failed repeatedly to f/u with neuro as outpatient, and then worsening renal fxn made him hi risk for morena when here last time). -warfarin changed to eliquis on past admits due to pt's repeated refusal to f/u with cardiology or have reliable INRs and make rec'd coumadin dose change, with worrisome CHADS-VASC 6 = estimated risk 9-10%/year, and hence concern he will stroke again on warfarin. - now on eliquis - resumed home regimen toprol 150 mg bid, HR improved today - trigger may be infection, with elevated white count and fevers. mgm't per pmd /ID cad: -managed medically, -no signs acs, con't r/o [place]. -continue home statin, bb, imdur, hydralazine -con't to defer ASA as pt with stable CAD in past and also on AC chronic syst chf, NICM: -stable. wt near baseline. no chf symptoms -cont po torsemide for now, but creatinine slowly worsening since switching to torsemide. does not appear underdiuresed. Will reassess accuracy of weight today and decide tomorrow whether to adjust diuretic regimen. No sx's of dizziness/orthostasis. R carotid stenosis: -ADRIENNE with PSV in high 200s cm/sec here, suspicious for >70% stenosis per radiology report -vascular surgery c/s on prior admit felt stenosis is at MOST 70% (deferred further imaging with contrast due to low GFR). Recommended deferring CEA unless imaging suggested >80% stenosis, or if he developed symptoms/acute cerebrovascular event. mild Ao dilation - nl size on most recent echo - Con't bb. Routine outpatient surveillance CKD: - cr near baseline, but progressively worsening on torsemide. see above discussion DAMIAN - CPAP qhs cardiac hou remains stable
[2016-05-22] MEDS: CLINDAMYCIN 600MG PREMIX IVPB 50 ML IVPB SCH ×3 (01:21→18:31)
[2016-05-22] MEDS: PIPERACILLIN/TAZOB 2.25 GM 50 ML IVPB SCH ×3 (02:08→19:02)
[2016-05-22] MEDS: INSULIN SLIDING SCALE (NOVOLOG) 1 VIAL SQ SCH ×4 (06:59→23:22)
[2016-05-22 08:25] LABS: MCH 28.6 pg (25.7-33.7); MCHC 32.1 g/dl (32.0-35.9); MEAN CELL VOLUME 89.1 fl (80-96); MEAN PLT VOLUME 8.1 fl (7.5-11.1); PLATELET COUNT 204 K/MM3 (134-434); RDW 17.7 % (11.9-15.9); WHITE BLOOD COUNT 12.8 K/mm3 (4.0-10.0)
[2016-05-22 09:06] LABS: ALBUMIN 2.7 g/dl (3.4-5.0); BILIRUBIN,TOTAL 0.8 mg/dL (0.2-1.0); CALCIUM 8.4 mg/dL (8.5-10.1); COCKROFT - GAULT 703.45; CREATININE 2.8 mg/dL (0.7-1.3); TOT PROT 6.9 g/dl (6.4-8.2)
[2016-05-22] MEDS: hydrALAZINE HCL 50 MG TABLET (FP) PO SCH ×2 (09:39→23:22)
[2016-05-22] MEDS: TAMSULOSIN HCL 0.4 MG CAP.ER.24H (FP) PO SCH (09:39)
[2016-05-22] MEDS: TORSEMIDE 20 MG TABLET (FP) PO SCH (09:40)
[2016-05-22] MEDS: METOPROLOL SUCCINATE 50 MG TAB.SR.24H (FP) PO SCH ×2 (09:40→23:21)
[2016-05-22] MEDS ORDERED: PT OWN MED DRAWER 7, Y5N ONE ×2 (09:42→21:16)
[2016-05-22] MEDS: ISOSORBIDE MONONITRATE 60 MG TAB.SR.24H (FP) PO SCH ×2 (09:43→23:21)
[2016-05-22] MEDS: APIXABAN 5 MG TABLET PO SCH ×2 (09:43→23:20)
[2016-05-22] MEDS: NYSTATIN POWDER 100,000 UNITS/GM - 15 GM TOPICAL POWDER TP SCH (09:43)
--- NOTE | 2016-05-22 11:18 | PN ---
Progress Note (short form) - Note Progress Note: Subjective: The patient was seen and examined at the bedside, he reports feeling better today and is ready to be discharged Current Medications Generic Name Dose Route Start Last Admin Trade Name Brianna PRN Reason Stop Dose Admin Apixaban 5 mg 05/16/16 10:00 05/22/16 09:43 Eliquis - PO 5 mg BID ANURADHA Administration Atorvastatin Calcium 10 mg 05/16/16 22:00 05/21/16 21:55 Lipitor - PO 10 mg HS ANURADHA Administration Hydralazine HCl 50 mg 05/19/16 22:00 05/22/16 09:39 Apresoline - PO 50 mg BID ANURADHA Administration Clindamycin Phosphate 50 mls @ 100 mls/hr 05/18/16 15:45 05/22/16 09:39 Cleocin 600 Mg Premix Ivpb - IVPB 100 mls/hr Q8H-IV ANURADHA Administration Piperacillin Sod/Tazobactam Sod 50 mls @ 100 mls/hr 05/18/16 15:45 05/22/16 10: 35 Zosyn 2.25gm Ivpb (Pre-Docked) IVPB 100 mls/hr Q8H-IV ANURADHA Administration Protocol Insulin Aspart 1 vial 05/19/16 16:30 05/22/16 06:59 Novolog Vial Sliding Scale - SQ Not Given ACHS [facility] Protocol Insulin Detemir 28 units 05/16/16 22:00 05/21/16 21:57 Levemir Vial SQ 28 units HS ANURADHA Administration Isosorbide Mononitrate 60 mg 05/16/16 10:00 05/22/16 09:43 Imdur - PO 60 mg BID ANURADHA Administration Metoprolol Succinate 150 mg 05/16/16 10:00 05/22/16 09:40 Toprol Xl - PO 150 mg BID ANURADHA Administration Nystatin 1 applic 05/17/16 10:00 05/22/16 09:43 Nystop Powder - TP 1 applic DAILY ANURADHA Administration Tamsulosin HCl 0.4 mg 05/16/16 08:30 05/22/16 09:39 Flomax - PO 0.4 mg DAILY@0830 ANRU[facility] Administration Torsemide 40 mg 05/16/16 10:00 05/22/16 09:40 Demadex - PO 40 mg DAILY ANURADHA Administration Objective: Vital Signs Period Temp Pulse Resp BP Sys/Perez Pulse Ox Last 24 Hr 97.3 F-98.8 F 81-91 20-20 123-151/71-91 95 Physical Exam: General: Morbidly obese Lungs: CTA bilaterally Heart: Irregular rate and rhythm Abd: Under pannus with mild erythema. Scrotal erythema. Soft, non-distended. Normoactive bowel sounds : Scrotal edema Ext: 1+ B/l lower extremity edema, b/l [place] extremity erythema. B/l knee abrasion Neuro: CN 2-12 intact CBCD WBC 12.8 K/mm3 (4.0-10.0) H 05/22/16 07:55 RBC 4.29 M/mm3 (4.00-5.60) 05/22/16 07:55 Hgb 12.3 GM/dL (11.7-16.9) 05/22/16 07:55 Hct 38.2 % (35.4-49) 05/22/16 07:55 MCV 89.1 fl (80-96) 05/22/16 07:55 MCHC 32.1 g/dl (32.0-35.9) 05/22/16 07:55 RDW 17.7 % (11.9-15.9) H 05/22/16 07:55 Plt Count 204 K/MM3 (134-434) 05/22/16 07:55 MPV 8.1 fl (7.5-11.1) 05/22/16 07:55 CMP Sodium 140 mmol/L (136-145) 05/22/16 07:55 Potassium 4.2 mmol/L (3.5-5.1) 05/22/16 07:55 Chloride 103 mmol/L (98-107) 05/22/16 07:55 Carbon Dioxide 27 mmol/L (21-32) 05/22/16 07:55 Anion Gap 10 (8-16) 05/22/16 07:55 BUN 47 mg/dL (7-18) H 05/22/16 07:55 Creatinine 2.8 mg/dL (0.7-1.3) H 05/22/16 07:55 Creat Clearance w eGFR 23.82 (>60) 05/22/16 07:55 Random Glucose 68 mg/dL (74-106) L 05/22/16 07:55 Calcium 8.4 mg/dL (8.5-10.1) L 05/22/16 07:55 Total Bilirubin 0.8 mg/dL (0.2-1.0) 05/22/16 07:55 AST 17 U/L (15-37) 05/22/16 07:55 ALT 13 U/L (12-78) 05/22/16 07:55 Alkaline Phosphatase 137 U/L (45-117) H 05/22/16 07:55 Total Protein 6.9 g/dl (6.4-8.2) 05/22/16 07:55 Albumin 2.7 g/dl (3.4-5.0) L 05/22/16 07:55 CARDIAC ENZYMES Creatine Kinase 161 IU/L (39-308) 05/16/16 15:40 Troponin I 0.08 ng/ml (0.00-0.05) H 05/16/16 15:40 Assessment: This is a 55 year old male with PMHx of A.fib (on eliquis), CAD, CHF , 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 Plan: 1) Cardiology: chest pressure - Borderline elevation in troponin - No current signs of ACS, EKG with no signs of ischemia - Continue Lipitor - Continue Imdur - Continue hydralazine - Continue Metoprolol - Appreciate cardiology consult Acute systolic heart failure exacerbation - B/l lower extremity edema - Continue Torsemide - Bipap at night, DAMIAN but is non-compliant at home - Daily weights - Strict I&O A.fib - Continue Eliquis - Rate controlled on Metoprolol XL - Appreciate cardiology consult 2) : CKD - Cr 2.8, baseline ~2.6, continue to monitor - Continue to monitor 3) ID: B/l lower extremity erythema, luke under pannus, acute epididymitis - Continue Clindamycin - Continue Zosyn - Improving - Nystatin powder for under pannus - Appreciate ID consult 4) Endocrine: IDDM - BGM ACHS - ISS ACHS - Levemir 28u sq qhs 5) F/E/N: - Diabetic low sodium diet - Monitor electrolytes 6) Prophylaxis: - On Eliquis - OOB ambulating 7) Dispo: - Requires continued inpatient care CODE STATUS: FULL CODE Visit type - Emergency Visit Emergency Visit: Yes ED Registration Date: 05/17/16 Care time: The patient presented to the Emergency Department on the above date and was hospitalized for further evaluation of their emergent condition. - New Patient This patient is new to me today: No - Critical Care Critical Care patient: No
--- NOTE | 2016-05-22 17:42 | PN ---
Progress Note, Physician History of Present Illness: doing much better swelling decreasing erythema much better pain much better - Current Medication List Current Medications: Active Medications Apixaban (Eliquis -) 5 mg PO BID [facility] Last Admin: 05/22/16 09:43 Dose: 5 mg Atorvastatin Calcium (Lipitor -) 10 mg PO HS [facility] Last Admin: 05/21/16 21:55 Dose: 10 mg Hydralazine HCl (Apresoline -) 50 mg PO BID [facility] Last Admin: 05/22/16 09:39 Dose: 50 mg Clindamycin Phosphate (Cleocin 600 Mg Premix Ivpb -) 50 mls @ 100 mls/hr IVPB Q8H-IV [facility] Last Admin: 05/22/16 09:39 Dose: 100 mls/hr Piperacillin Sod/Tazobactam Sod (Zosyn 2.25gm Ivpb (Pre-Docked)) 50 mls @ 100 mls/hr IVPB Q8H-IV [facility] PRN Reason: Protocol Last Admin: 05/22/16 10:35 Dose: 100 mls/hr Insulin Aspart (Novolog Vial Sliding Scale -) 1 vial SQ [facility] PRN Reason: Protocol Last Admin: 05/22/16 16:54 Dose: Not Given Insulin Detemir (Levemir Vial) 28 units SQ [facility] Last Admin: 05/21/16 21:57 Dose: 28 units Isosorbide Mononitrate (Imdur -) 60 mg PO BID [facility] Last Admin: 05/22/16 09:43 Dose: 60 mg Metoprolol Succinate (Toprol Xl -) 150 mg PO BID [facility] Last Admin: 05/22/16 09:40 Dose: 150 mg Nystatin (Nystop Powder -) 1 applic TP DAILY [facility] Last Admin: 05/22/16 09:43 Dose: 1 applic Tamsulosin HCl (Flomax -) 0.4 mg PO DAILY@0830 [facility] Last Admin: 05/22/16 09:39 Dose: 0.4 mg Torsemide (Demadex -) 40 mg PO DAILY [facility] Last Admin: 05/22/16 09:40 Dose: 40 mg - Objective Vital Signs: Vital Signs Temperature 98.1 F 05/22/16 14:34 Pulse Rate 82 05/22/16 14:34 Respiratory Rate 20 05/22/16 14:34 Blood Pressure 121/68 05/22/16 14:34 O2 Sat by Pulse Oximetry (%) 96 05/22/16 09:00 Constitutional: Yes: No Distress, Calm, Obese Cardiovascular: Yes: S1, S2 Respiratory: Yes: Regular, CTA Bilaterally Gastrointestinal: Yes: Normal Bowel Sounds, Soft Genitourinary: Yes: Scrotal Edema (resovling), Other (erythema improving) Musculoskeletal: Yes: Other Extremities: Yes: Other Labs: CBC, BMP 05/22/16 07:55 05/22/16 07:55 INR, PTT INR 1.50 (0.82-1.09) H 05/16/16 03:59 Assessment/Plan HTN chest tightness/sob: Afib, h/o ischemic cva 05/20, cad: chronic syst chf, NICM: R carotid stenosis: CKD: DAMIAN fungal infection of the groin leukocytosis cellulitis of the scrotum improving plan continue abx continue to monitor once patient erythema is resolved we will switch to oral abx
--- NOTE | 2016-05-22 19:08 | PN ---
Progress Note (short form) - Note Progress Note: CC: afib with rvr. s: no cp sob palps dizzy. doesn't feel like he's holding on to fluid. Got his bipap machine today and plans to use this evening. Current Medications Apixaban (Eliquis -) 5 mg PO BID [facility] Last Admin: 05/22/16 09:43 Dose: 5 mg Atorvastatin Calcium (Lipitor -) 10 mg PO HS [facility] Last Admin: 05/21/16 21:55 Dose: 10 mg Hydralazine HCl (Apresoline -) 50 mg PO BID [facility] Last Admin: 05/22/16 09:39 Dose: 50 mg Clindamycin Phosphate (Cleocin 600 Mg Premix Ivpb -) 50 mls @ 100 mls/hr IVPB Q8H-IV [facility] Last Admin: 05/22/16 18:31 Dose: 100 mls/hr Piperacillin Sod/Tazobactam Sod (Zosyn 2.25gm Ivpb (Pre-Docked)) 50 mls @ 100 mls/hr IVPB Q8H-IV [facility] PRN Reason: Protocol Last Admin: 05/22/16 19:02 Dose: 100 mls/hr Insulin Aspart (Novolog Vial Sliding Scale -) 1 vial SQ [facility] PRN Reason: Protocol Last Admin: 05/22/16 16:54 Dose: Not Given Insulin Detemir (Levemir Vial) 28 units SQ [facility] Last Admin: 05/21/16 21:57 Dose: 28 units Isosorbide Mononitrate (Imdur -) 60 mg PO BID [facility] Last Admin: 05/22/16 09:43 Dose: 60 mg Metoprolol Succinate (Toprol Xl -) 150 mg PO BID [facility] Last Admin: 05/22/16 09:40 Dose: 150 mg Nystatin (Nystop Powder -) 1 applic TP DAILY [facility] Last Admin: 05/22/16 09:43 Dose: 1 applic Tamsulosin HCl (Flomax -) 0.4 mg PO DAILY@0830 [facility] Last Admin: 05/22/16 09:39 Dose: 0.4 mg Vital Signs - 24 hr 05/21/16 05/21/16 05/22/16 21:00 22:00 01:22 Temperature 98.8 F 98.5 F Pulse Rate 81 91 H Respiratory 20 20 20 Rate Blood Pressure 140/86 144/91 O2 Sat by Pulse 95 Oximetry (%) 05/22/16 05/22/16 05/22/16 06:00 09:00 10:00 Temperature 97.3 F L 98.4 F Pulse Rate 81 90 Respiratory 20 20 Rate Blood Pressure 123/83 141/91 O2 Sat by Pulse 96 Oximetry (%) 05/22/16 05/22/16 14:34 17:51 Temperature 98.1 F 97.8 F Pulse Rate 82 84 Respiratory 20 20 Rate Blood Pressure 121/68 153/91 O2 Sat by Pulse Oximetry (%) Intake & Output 05/20/16 05/21/16 05/22/16 05/23/16 07:59 07:59 07:59 07:59 Intake Total 1200 100 100 500 Output Total 200 500 Balance 1200 100 -100 0 Weight 361 lb 7 oz 360 lb 11.2 oz 3593 lb 11.2 oz 359 lb 9 oz Constitutional: Yes: No Distress, Obese Eyes: No: Sclera Icterus Respiratory: cta bl nl eff Gastrointestinal: Yes: Normal Bowel Sounds. obese No: Distention, Hepatomegaly, Palpable Mass, tenderness Cardiovascular: Yes: Irregular Rhythm, nl rate JVD: tds Heart Sounds: Yes: nl, S1, S2. No: Gallop Murmur: No: Systolic Murmur, Diastolic Murmur Edema: no sig le edema, +erythema of shins bl Integumentary: No: Jaundice diaphoresis Neurological: Yes: Alert, Oriented (x3) Psychiatric: No: Agitated CBC, BMP 05/22/16 07:55 05/22/16 07:55 ekg: afib, rad. no ischemic changes. former tele: afib, rate controlled CXR: no chf, but poor quality due to extensive soft tissue obscuring view echo 05/2016: mod LVH. sev decreased lv fn. (global). rv not well seen. 1+ mr, mod tr, small effusion. Echo 10/2015: Moderately decreased LV function (global). Nl RV size/fn. 1+ MR. mild-mod TR. mild ao dilation. Trivial effusion. cath 06/2013: 60-70 rpl1, 80-90 d1, subtotal om1 MIBI 08/2014 (pers): no STs; no ischemia seen; predominantly fixed medium-sized inferior/basal inferolat/apico-inferior defect c/w diaphragm attenuation; EF 46% a/p: 55 yo with h/o afib with prior ?embolic CVA 05/2014 ([facility]) right visual field cut, syncope 09/19 with ICH at that time vs other entity on MRI and recurrent syncope 12/2015 (unclear etiology), Non-ischemic cardiomyopathy dx 2013 at [facility], HTN, HPL, Rt carotid stenosis, IDDM, RLE cellulitis s/p debridement, MSSA bacteremia 10/2015, DAMIAN not on home cpap, ckd, recently discharged from admisstion with sob/elmo. presents with sob and hypertension. HTN - presented with bp 212/130. - after resuming anti-hypertensives bp improved. currently reasonable control given prior history of orthostatic hypotension chest tightness/sob: - likely 2/2 RVR. rate controlled and feeling better now - borderline troponin x3 consistent with prior baseline values, no indication of acs. ekg without ischemic changes. 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 Contrast enhancing lesion seen 06/19 and the prior heme on MRI were in same location and was thought to be most likely 2/2 post CVA hemorrhagic conversion (i.e. without hi risk for recurrent ICH). Less likely low-grade glioma, which would have very low risk of bleeding if AC resumed--hence the recs at that time were for usual AC considerations for his afib, no special precautions (pt failed repeatedly to f/u with neuro as outpatient, and then worsening renal fxn made him hi risk for morena when here last time). -warfarin changed to eliquis on past admits due to pt's repeated refusal to f/u with cardiology or have reliable INRs and make rec'd coumadin dose change, with worrisome CHADS-VASC 6 = estimated risk 9-10%/year, and hence concern he will stroke again on warfarin. - now on eliquis - resumed home regimen toprol 150 mg bid, HR improved today - trigger may be infection, with elevated white count and fevers. mgm't per pmd /ID cad: -managed medically, -no signs acs, con't r/o [place]. -continue home statin, bb, imdur, hydralazine -con't to defer ASA as pt with stable CAD in past and also on AC chronic syst chf, NICM: -stable. wt near baseline. no chf symptoms -05/21 cont po torsemide for now, but creatinine slowly worsening since switching to torsemide. does not appear underdiuresed. Will reassess accuracy of weight today and decide tomorrow whether to adjust diuretic regimen. No sx' s of dizziness/orthostasis. - 05/22: creatinine worse again today. weight stable. Will hold torsemide dose tomorrow (already received today), consider need for QOD torsemide regimen as outpatient. Reevaluate weight/renal function on sunday if still here, otherwise d/c on QOD dosing with close cardiology follow up. * NEEDS SCALE AT HOME R carotid stenosis: -ADRIENNE with PSV in high 200s cm/sec here, suspicious for >70% stenosis per radiology report -vascular surgery c/s on prior admit felt stenosis is at MOST 70% (deferred further imaging with contrast due to low GFR). Recommended deferring CEA unless imaging suggested >80% stenosis, or if he developed symptoms/acute cerebrovascular event. mild Ao dilation - nl size on most recent echo - Con't bb. Routine outpatient surveillance CKD: - cr near baseline, but progressively worsening on torsemide. see above discussion DAMIAN - CPAP qhs cardiac hou remains stable
[2016-05-22] MEDS: ATORVASTATIN CA 10 MG TABLET (FP) PO SCH (23:21)
[2016-05-22] MEDS: INSULIN DETEMIR 100 UNITS/ML MDV SQ SCH (23:22)
[2016-05-23] MEDS: CLINDAMYCIN 600MG PREMIX IVPB 50 ML IVPB SCH ×3 (02:19→17:37)
[2016-05-23] MEDS: PIPERACILLIN/TAZOB 2.25 GM 50 ML IVPB SCH ×3 (02:54→17:37)
[2016-05-23] MEDS: INSULIN SLIDING SCALE (NOVOLOG) 1 VIAL SQ SCH ×3 (06:13→16:57)
[2016-05-23 08:16] LABS: MCHC 32.7 g/dl (32.0-35.9); MEAN CELL VOLUME 88.8 fl (80-96); MEAN PLT VOLUME 8.5 fl (7.5-11.1); PLATELET COUNT 184 K/MM3 (134-434); RDW 17.4 % (11.9-15.9); WHITE BLOOD COUNT 13.1 K/mm3 (4.0-10.0)
[2016-05-23 08:36] LABS: ALBUMIN 2.7 g/dl (3.4-5.0); BILIRUBIN,TOTAL 0.9 mg/dL (0.2-1.0); CALCIUM 8.4 mg/dL (8.5-10.1); COCKROFT - GAULT 72.1; CREATININE 2.7 mg/dL (0.7-1.3); TOT PROT 6.7 g/dl (6.4-8.2)
[2016-05-23] MEDS ORDERED: PT OWN MED DRAWER 7, Y5N ONE ×2 (09:22→21:08)
[2016-05-23] MEDS: hydrALAZINE HCL 50 MG TABLET (FP) PO SCH ×2 (09:26→22:06)
[2016-05-23] MEDS: NYSTATIN POWDER 100,000 UNITS/GM - 15 GM TOPICAL POWDER TP SCH (09:27)
[2016-05-23] MEDS: ISOSORBIDE MONONITRATE 60 MG TAB.SR.24H (FP) PO SCH ×2 (09:27→22:06)
[2016-05-23] MEDS: TAMSULOSIN HCL 0.4 MG CAP.ER.24H (FP) PO SCH (09:27)
[2016-05-23] MEDS: APIXABAN 5 MG TABLET PO SCH ×2 (09:27→22:05)
[2016-05-23] MEDS: METOPROLOL SUCCINATE 50 MG TAB.SR.24H (FP) PO SCH ×2 (09:28→22:06)
--- NOTE | 2016-05-23 14:04 | PN ---
Progress Note, Physician History of Present Illness: doing much ebtter still scrotal cellulitis present but improved - Current Medication List Current Medications: Active Medications Apixaban (Eliquis -) 5 mg PO BID [facility] Last Admin: 05/23/16 09:27 Dose: 5 mg Atorvastatin Calcium (Lipitor -) 10 mg PO HS [facility] Last Admin: 05/22/16 23:21 Dose: 10 mg Hydralazine HCl (Apresoline -) 50 mg PO BID [facility] Last Admin: 05/23/16 09:26 Dose: 50 mg Clindamycin Phosphate (Cleocin 600 Mg Premix Ivpb -) 50 mls @ 100 mls/hr IVPB Q8H-IV [facility] Last Admin: 05/23/16 09:26 Dose: 100 mls/hr Piperacillin Sod/Tazobactam Sod (Zosyn 2.25gm Ivpb (Pre-Docked)) 50 mls @ 100 mls/hr IVPB Q8H-IV [facility] PRN Reason: Protocol Last Admin: 05/23/16 09:29 Dose: 100 mls/hr Insulin Aspart (Novolog Vial Sliding Scale -) 1 vial SQ [facility] PRN Reason: Protocol Last Admin: 05/23/16 11:50 Dose: Not Given Insulin Detemir (Levemir Vial) 28 units SQ [facility] Last Admin: 05/22/16 23:22 Dose: 28 units Isosorbide Mononitrate (Imdur -) 60 mg PO BID [facility] Last Admin: 05/23/16 09:27 Dose: 60 mg Metoprolol Succinate (Toprol Xl -) 150 mg PO BID [facility] Last Admin: 05/23/16 09:28 Dose: 150 mg Nystatin (Nystop Powder -) 1 applic TP DAILY [facility] Last Admin: 05/23/16 09:27 Dose: 1 applic Tamsulosin HCl (Flomax -) 0.4 mg PO DAILY@0830 [facility] Last Admin: 05/23/16 09:27 Dose: 0.4 mg - Objective Vital Signs: Vital Signs Temperature 98.9 F 05/23/16 08:46 Pulse Rate 88 05/23/16 09:57 Respiratory Rate 20 05/23/16 08:46 Blood Pressure 139/63 05/23/16 08:46 O2 Sat by Pulse Oximetry (%) 96 05/23/16 09:57 Constitutional: Yes: No Distress, Calm, Obese Cardiovascular: Yes: S1, S2 Respiratory: Yes: Regular, Poor Air Entry Gastrointestinal: Yes: Normal Bowel Sounds, Soft Genitourinary: Yes: Scrotal Edema (minimal), Other (erythema resolving) Musculoskeletal: Yes: WNL Extremities: Yes: WNL Neurological: Yes: Alert, Oriented Psychiatric: Yes: Alert, Oriented Labs: CBC, BMP 05/23/16 06:00 05/23/16 06:00 INR, PTT INR 1.50 (0.82-1.09) H 05/16/16 03:59 Assessment/Plan HTN chest tightness/sob: Afib, h/o ischemic cva 05/20, cad: chronic syst chf, NICM: R carotid stenosis: CKD: DAMIAN fungal infection of the groin leukocytosis cellulitis of the scrotum improving plan continue abx continue to monitor still with some erythema will reevalaute the scrotum tomorrow and see if we can start oral abx
--- NOTE | 2016-05-23 14:18 | PN ---
Progress Note (short form) - Note Progress Note: Subjective: The patient was seen and examined at the bedside, he reports feeling good today. Current Medications Generic Name Dose Route Start Last Admin Trade Name Brianna PRN Reason Stop Dose Admin Apixaban 5 mg 05/16/16 10:00 05/23/16 09:27 Eliquis - PO 5 mg BID ANURADHA Administration Atorvastatin Calcium 10 mg 05/16/16 22:00 05/22/16 23:21 Lipitor - PO 10 mg HS ANURADHA Administration Hydralazine HCl 50 mg 05/19/16 22:00 05/23/16 09:26 Apresoline - PO 50 mg BID ANURADHA Administration Clindamycin Phosphate 50 mls @ 100 mls/hr 05/18/16 15:45 05/23/16 09:26 Cleocin 600 Mg Premix Ivpb - IVPB 100 mls/hr Q8H-IV ANURADHA Administration Piperacillin Sod/Tazobactam Sod 50 mls @ 100 mls/hr 05/18/16 15:45 05/23/16 09: 29 Zosyn 2.25gm Ivpb (Pre-Docked) IVPB 100 mls/hr Q8H-IV ANURADHA Administration Protocol Insulin Aspart 1 vial 05/19/16 16:30 05/23/16 11:50 Novolog Vial Sliding Scale - SQ Not Given ACHS [facility] Protocol Insulin Detemir 28 units 05/16/16 22:00 05/22/16 23:22 Levemir Vial SQ 28 units HS ANURADHA Administration Isosorbide Mononitrate 60 mg 05/16/16 10:00 05/23/16 09:27 Imdur - PO 60 mg BID ANURADHA Administration Metoprolol Succinate 150 mg 05/16/16 10:00 05/23/16 09:28 Toprol Xl - PO 150 mg BID ANURADHA Administration Nystatin 1 applic 05/17/16 10:00 05/23/16 09:27 Nystop Powder - TP 1 applic DAILY ANURADHA Administration Tamsulosin HCl 0.4 mg 05/16/16 08:30 05/23/16 09:27 Flomax - PO 0.4 mg DAILY@0830 ANURADHA Administration Objective: Vital Signs Period Temp Pulse Resp BP Sys/Perez Pulse Ox Last 24 Hr 97.8 F-98.9 F 78-96 18-20 121-164/63-108 96-98 Physical Exam: General: Morbidly obese Lungs: CTA bilaterally Heart: Irregular rate and rhythm Abd: Under pannus with mild erythema. Scrotal erythema. Soft, non-distended. Normoactive bowel sounds : Scrotal edema Ext: 1+ B/l lower extremity edema, b/l [place] extremity erythema. B/l knee abrasion Neuro: CN 2-12 intact CBCD WBC 13.1 K/mm3 (4.0-10.0) H 05/23/16 06:00 RBC 4.22 M/mm3 (4.00-5.60) 05/23/16 06:00 Hgb 12.3 GM/dL (11.7-16.9) 05/23/16 06:00 Hct 37.5 % (35.4-49) 05/23/16 06:00 MCV 88.8 fl (80-96) 05/23/16 06:00 MCHC 32.7 g/dl (32.0-35.9) 05/23/16 06:00 RDW 17.4 % (11.9-15.9) H 05/23/16 06:00 Plt Count 184 K/MM3 (134-434) 05/23/16 06:00 MPV 8.5 fl (7.5-11.1) 05/23/16 06:00 CMP Sodium 140 mmol/L (136-145) 05/23/16 06:00 Potassium 3.9 mmol/L (3.5-5.1) 05/23/16 06:00 Chloride 104 mmol/L (98-107) 05/23/16 06:00 Carbon Dioxide 27 mmol/L (21-32) 05/23/16 06:00 Anion Gap 9 (8-16) 05/23/16 06:00 BUN 45 mg/dL (7-18) H 05/23/16 06:00 Creatinine 2.7 mg/dL (0.7-1.3) H 05/23/16 06:00 Creat Clearance w eGFR 24.84 (>60) 05/23/16 06:00 Random Glucose 67 mg/dL (74-106) L 05/23/16 06:00 Calcium 8.4 mg/dL (8.5-10.1) L 05/23/16 06:00 Total Bilirubin 0.9 mg/dL (0.2-1.0) 05/23/16 06:00 AST 17 U/L (15-37) 05/23/16 06:00 ALT 13 U/L (12-78) 05/23/16 06:00 Alkaline Phosphatase 130 U/L (45-117) H 05/23/16 06:00 Total Protein 6.7 g/dl (6.4-8.2) 05/23/16 06:00 Albumin 2.7 g/dl (3.4-5.0) L 05/23/16 06:00 CARDIAC ENZYMES Creatine Kinase 161 IU/L (39-308) 05/16/16 15:40 Troponin I 0.08 ng/ml (0.00-0.05) H 05/16/16 15:40 Microbiology 05/17/16 03:00 Blood - Peripheral Venous Blood Culture - Final NO GROWTH AFTER 5 DAYS INCUBATION 05/17/16 03:00 Blood - Peripheral Venous Blood Culture - Final NO GROWTH AFTER 5 DAYS INCUBATION 05/19/16 05:20 Urine - Urine Clean Catch Urine Culture - Final 05/17/16 03:00 Urine - Urine Clean Catch Urine Culture - Final Contaminated: Please Repeat Assessment: This is a 55 year old male with PMHx of A.fib (on eliquis), CAD, CHF , 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 Plan: 1) Cardiology: chest pressure - Borderline elevation in troponin - No current signs of ACS, EKG with no signs of ischemia - Continue Lipitor - Continue Imdur - Continue hydralazine - Continue Metoprolol - Appreciate cardiology consult Acute systolic heart failure exacerbation - B/l lower extremity edema - Continue Torsemide qod - Bipap at night, DAMIAN but is non-compliant at home - Daily weights - Strict I&O A.fib - Continue Eliquis - Rate controlled on Metoprolol XL - Appreciate cardiology consult 2) : CKD - Cr 2.7, baseline ~2.6, continue to monitor - Continue to monitor 3) ID: B/l lower extremity erythema, luke under pannus, acute epididymitis - Continue Clindamycin - Continue Zosyn - Improving - Nystatin powder for under pannus - Appreciate ID consult 4) Endocrine: IDDM - BGM ACHS - ISS ACHS - Levemir 28u sq qhs 5) F/E/N: - Diabetic low sodium diet - Monitor electrolytes 6) Prophylaxis: - On Eliquis - OOB ambulating 7) Dispo: - Requires continued inpatient care - Can be discharged once scrotal cellulitis resolved CODE STATUS: FULL CODE Visit type - Emergency Visit Emergency Visit: Yes ED Registration Date: 05/17/16 Care time: The patient presented to the Emergency Department on the above date and was hospitalized for further evaluation of their emergent condition. - New Patient This patient is new to me today: No - Critical Care Critical Care patient: No
--- NOTE | 2016-05-23 15:43 | PN ---
Progress Note (short form) - Note Progress Note: s: no cp sob palps dizzy o: Vital Signs Period Temp Pulse Resp BP Sys/Perez Pulse Ox Last 24 Hr 97.8 F-98.9 F 78-96 18-20 131-164/63-108 96-98 Constitutional: Yes: No Distress, Obese Eyes: No: Sclera Icterus Respiratory: cta bl nl eff Gastrointestinal: Yes: Normal Bowel Sounds. obese No: Distention, Hepatomegaly, Palpable Mass, tenderness Cardiovascular: Yes: Irregular Rhythm, nl rate JVD: tds Heart Sounds: Yes: nl, S1, S2. No: Gallop Murmur: No: Systolic Murmur, Diastolic Murmur Edema: no sig le edema, +erythema of shins bl Integumentary: No: Jaundice diaphoresis Neurological: Yes: Alert, Oriented (x3) Psychiatric: No: Agitated Current Medications Generic Name Dose Route Start Last Admin Trade Name Freq PRN Reason Stop Dose Admin Apixaban 5 mg 05/16/16 10:00 05/23/16 09:27 Eliquis - PO 5 mg BID ANURADHA Administration Atorvastatin Calcium 10 mg 05/16/16 22:00 05/22/16 23:21 Lipitor - PO 10 mg HS ANURADHA Administration Hydralazine HCl 50 mg 05/19/16 22:00 05/23/16 09:26 Apresoline - PO 50 mg BID ANURADHA Administration Clindamycin Phosphate 50 mls @ 100 mls/hr 05/18/16 15:45 05/23/16 09:26 Cleocin 600 Mg Premix Ivpb - IVPB 100 mls/hr Q8H-IV ANURADHA Administration Piperacillin Sod/Tazobactam Sod 50 mls @ 100 mls/hr 05/18/16 15:45 05/23/16 09: 29 Zosyn 2.25gm Ivpb (Pre-Docked) IVPB 100 mls/hr Q8H-IV ANURADHA Administration Protocol Insulin Aspart 1 vial 05/19/16 16:30 05/23/16 11:50 Novolog Vial Sliding Scale - SQ Not Given ACHS [facility] Protocol Insulin Detemir 28 units 05/16/16 22:00 05/22/16 23:22 Levemir Vial SQ 28 units HS ANURADHA Administration Isosorbide Mononitrate 60 mg 05/16/16 10:00 05/23/16 09:27 Imdur - PO 60 mg BID ANURADHA Administration Metoprolol Succinate 150 mg 05/16/16 10:00 05/23/16 09:28 Toprol Xl - PO 150 mg BID ANURADHA Administration Nystatin 1 applic 05/17/16 10:00 05/23/16 09:27 Nystop Powder - TP 1 applic DAILY ANURADHA Administration Tamsulosin HCl 0.4 mg 05/16/16 08:30 05/23/16 09:27 Flomax - PO 0.4 mg DAILY@0830 ANURADHA Administration CBC, BMP 05/23/16 06:00 05/23/16 06:00 echo 05/2016: mod LVH. sev decreased lv fn. (global). rv not well seen. 1+ mr, mod tr, small effusion. Echo 10/2015: Moderately decreased LV function (global). Nl RV size/fn. 1+ MR. mild-mod TR. mild ao dilation. Trivial effusion. cath 06/2013: 60-70 rpl1, 80-90 d1, subtotal om1 MIBI 08/2014 (pers): no STs; no ischemia seen; predominantly fixed medium-sized inferior/basal inferolat/apico-inferior defect c/w diaphragm attenuation; EF 46% a/p: 55 yo with h/o afib with prior ?embolic CVA 05/[address] ([facility]) right visual field cut, syncope 09/19 with ICH at that time vs other entity on MRI and recurrent syncope 12/2015 (unclear etiology), Non-ischemic cardiomyopathy dx 2013 at [facility], HTN, HPL, Rt carotid stenosis, IDDM, RLE cellulitis s/p debridement, MSSA bacteremia 10/2015, DAMIAN not on home cpap, ckd, recently discharged from admisstion with sob/elmo. presents with sob and hypertension. HTN - presented with bp 212/130. - after resuming anti-hypertensives bp improved. currently reasonable control given prior history of orthostatic hypotension chest tightness/sob: - likely 2/2 RVR. rate controlled and feeling better now - borderline troponin x3 consistent with prior baseline values, no indication of acs. ekg without ischemic changes. 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 Contrast enhancing lesion seen 06/19 and the prior heme on MRI were in same location and was thought to be most likely 2/2 post CVA hemorrhagic conversion (i.e. without hi risk for recurrent ICH). Less likely low-grade glioma, which would have very low risk of bleeding if AC resumed--hence the recs at that time were for usual AC considerations for his afib, no special precautions (pt failed repeatedly to f/u with neuro as outpatient, and then worsening renal fxn made him hi risk for morena when here last time). -warfarin changed to eliquis on past admits due to pt's repeated refusal to f/u with cardiology or have reliable INRs and make rec'd coumadin dose change, with worrisome CHADS-VASC 6 = estimated risk 9-10%/year, and hence concern he will stroke again on warfarin. - now on eliquis - resumed home regimen toprol 150 mg bid, HR improved today - trigger may be infection, with elevated white count and fevers. mgm't per pmd /ID cad: -managed medically, -no signs acs, con't r/o [place]. -continue home statin, bb, imdur, hydralazine -con't to defer ASA as pt with stable CAD in past and also on AC chronic syst chf, NICM: -stable. wt near baseline. no chf symptoms -05/21 cont po torsemide for now, but creatinine slowly worsening since switching to torsemide. does not appear underdiuresed. Will reassess accuracy of weight today and decide tomorrow whether to adjust diuretic regimen. No sx' s of dizziness/orthostasis. - 05/22: creatinine worse again today. weight stable. Will hold torsemide dose tomorrow (already received today) - 05/23: resume torsemide 40 po qd starting tomorrow if cr stable. R carotid stenosis: -ADRIENNE with PSV in high 200s cm/sec here, suspicious for >70% stenosis per radiology report -vascular surgery c/s on prior admit felt stenosis is at MOST 70% (deferred further imaging with contrast due to low GFR). Recommended deferring CEA unless imaging suggested >80% stenosis, or if he developed symptoms/acute cerebrovascular event. mild Ao dilation - nl size on most recent echo - Con't bb. Routine outpatient surveillance CKD: - cr near baseline DAMIAN - CPAP qhs cardiac hou remains stable
[2016-05-23] MEDS: ATORVASTATIN CA 10 MG TABLET (FP) PO SCH (22:06)
[2016-05-23] MEDS: INSULIN DETEMIR 100 UNITS/ML MDV SQ SCH (22:07)
[2016-05-24] MEDS: INSULIN SLIDING SCALE (NOVOLOG) 1 VIAL SQ SCH ×5 (00:02→21:01)
[2016-05-24] MEDS: CLINDAMYCIN 600MG PREMIX IVPB 50 ML IVPB SCH ×3 (01:39→17:54)
[2016-05-24] MEDS: PIPERACILLIN/TAZOB 2.25 GM 50 ML IVPB SCH ×3 (01:39→17:02)
[2016-05-24] MEDS ORDERED: PT OWN MED DRAWER 7, Y5N ONE ×2 (09:22→20:04)
[2016-05-24] MEDS: TAMSULOSIN HCL 0.4 MG CAP.ER.24H (FP) PO SCH (09:26)
[2016-05-24] MEDS: METOPROLOL SUCCINATE 50 MG TAB.SR.24H (FP) PO SCH ×2 (09:26→20:59)
[2016-05-24] MEDS: ISOSORBIDE MONONITRATE 60 MG TAB.SR.24H (FP) PO SCH ×2 (09:26→20:59)
[2016-05-24] MEDS: APIXABAN 5 MG TABLET PO SCH ×2 (09:26→20:59)
[2016-05-24] MEDS: hydrALAZINE HCL 50 MG TABLET (FP) PO SCH ×2 (09:26→20:59)
[2016-05-24] MEDS: NYSTATIN POWDER 100,000 UNITS/GM - 15 GM TOPICAL POWDER TP SCH (09:27)
--- NOTE | 2016-05-24 11:12 | PN ---
Progress Note, Physician History of Present Illness: scrotum continues to improve erythema less - Current Medication List Current Medications: Active Medications Apixaban (Eliquis -) 5 mg PO BID [facility] Last Admin: 05/24/16 09:26 Dose: 5 mg Atorvastatin Calcium (Lipitor -) 10 mg PO HS [facility] Last Admin: 05/23/16 22:06 Dose: 10 mg Hydralazine HCl (Apresoline -) 50 mg PO BID [facility] Last Admin: 05/24/16 09:26 Dose: 50 mg Clindamycin Phosphate (Cleocin 600 Mg Premix Ivpb -) 50 mls @ 100 mls/hr IVPB Q8H-IV [facility] Last Admin: 05/24/16 09:27 Dose: 100 mls/hr Piperacillin Sod/Tazobactam Sod (Zosyn 2.25gm Ivpb (Pre-Docked)) 50 mls @ 100 mls/hr IVPB Q8H-IV [facility] PRN Reason: Protocol Last Admin: 05/24/16 09:26 Dose: 100 mls/hr Insulin Aspart (Novolog Vial Sliding Scale -) 1 vial SQ [facility] PRN Reason: Protocol Last Admin: 05/24/16 06:15 Dose: Not Given Insulin Detemir (Levemir Vial) 28 units SQ [facility] Last Admin: 05/23/16 22:07 Dose: 28 units Isosorbide Mononitrate (Imdur -) 60 mg PO BID [facility] Last Admin: 05/24/16 09:26 Dose: 60 mg Metoprolol Succinate (Toprol Xl -) 150 mg PO BID [facility] Last Admin: 05/24/16 09:26 Dose: 150 mg Nystatin (Nystop Powder -) 1 applic TP DAILY [facility] Last Admin: 05/24/16 09:27 Dose: 1 applic Tamsulosin HCl (Flomax -) 0.4 mg PO DAILY@0830 [facility] Last Admin: 05/24/16 09:26 Dose: 0.4 mg - Objective Vital Signs: Vital Signs Temperature 98.2 F 05/24/16 10:00 Pulse Rate 84 05/24/16 10:00 Respiratory Rate 20 05/24/16 10:00 Blood Pressure 143/90 05/24/16 10:00 O2 Sat by Pulse Oximetry (%) 98 05/24/16 09:00 Constitutional: Yes: No Distress, Calm Cardiovascular: Yes: S1, S2 Respiratory: Yes: Regular, CTA Bilaterally, Poor Air Entry Gastrointestinal: Yes: Normal Bowel Sounds, Soft Genitourinary: Yes: Scrotal Edema (minimal,erythema minimal tenderness much less ) Musculoskeletal: Yes: WNL Extremities: Yes: WNL Neurological: Yes: Alert, Oriented Psychiatric: Yes: Alert, Oriented Labs: CBC, BMP 05/23/16 06:00 05/23/16 06:00 INR, PTT INR 1.50 (0.82-1.09) H 05/16/16 03:59 Assessment/Plan HTN chest tightness/sob: Afib, h/o ischemic cva 05/20, cad: chronic syst chf, NICM: R carotid stenosis: CKD: DAMIAN fungal infection of the groin leukocytosis cellulitis of the scrotum improving plan continue abx continue to monitor still with some erythema probably will be able to switch to oral tomorrow
--- NOTE | 2016-05-24 11:44 | PN ---
Progress Note (short form) - Note Progress Note: s: no cp sob palps dizzy o: Vital Signs Period Temp Pulse Resp BP Sys/Perez Pulse Ox Last 24 Hr 98.2 F-98.7 F 84-98 18-22 131-164/76-96 97-98 Constitutional: Yes: No Distress, Obese Eyes: No: Sclera Icterus Respiratory: cta bl nl eff Gastrointestinal: Yes: Normal Bowel Sounds. obese No: Distention, Hepatomegaly, Palpable Mass, tenderness Cardiovascular: Yes: Irregular Rhythm, nl rate JVD: tds Heart Sounds: Yes: nl, S1, S2. No: Gallop Murmur: No: Systolic Murmur, Diastolic Murmur Edema: no sig le edema, +erythema of shins bl Integumentary: No: Jaundice diaphoresis Neurological: Yes: Alert, Oriented (x3) Psychiatric: No: Agitated Current Medications Generic Name Dose Route Start Last Admin Trade Name Freq PRN Reason Stop Dose Admin Apixaban 5 mg 05/16/16 10:00 05/24/16 09:26 Eliquis - PO 5 mg BID ANURADHA Administration Atorvastatin Calcium 10 mg 05/16/16 22:00 05/23/16 22:06 Lipitor - PO 10 mg HS ANURADHA Administration Hydralazine HCl 50 mg 05/19/16 22:00 05/24/16 09:26 Apresoline - PO 50 mg BID ANURADHA Administration Clindamycin Phosphate 50 mls @ 100 mls/hr 05/18/16 15:45 05/24/16 09:27 Cleocin 600 Mg Premix Ivpb - IVPB 100 mls/hr Q8H-IV ANURADHA Administration Piperacillin Sod/Tazobactam Sod 50 mls @ 100 mls/hr 05/18/16 15:45 05/24/16 09: 26 Zosyn 2.25gm Ivpb (Pre-Docked) IVPB 100 mls/hr Q8H-IV ANURADHA Administration Protocol Insulin Aspart 1 vial 05/19/16 16:30 05/24/16 11:14 Novolog Vial Sliding Scale - SQ Not Given ACHS [facility] Protocol Insulin Detemir 28 units 05/16/16 22:00 05/23/16 22:07 Levemir Vial SQ 28 units HS ANURADHA Administration Isosorbide Mononitrate 60 mg 05/16/16 10:00 05/24/16 09:26 Imdur - PO 60 mg BID ANURADHA Administration Metoprolol Succinate 150 mg 05/16/16 10:00 05/24/16 09:26 Toprol Xl - PO 150 mg BID ANURADHA Administration Nystatin 1 applic 05/17/16 10:00 05/24/16 09:27 Nystop Powder - TP 1 applic DAILY AUNRADHA Administration Tamsulosin HCl 0.4 mg 05/16/16 08:30 05/24/16 09:26 Flomax - PO 0.4 mg DAILY@0830 ANURADHA Administration Torsemide 40 mg 05/25/16 10:00 Demadex - PO DAILY ANURADHA CBC, BMP 05/23/16 06:00 05/23/16 06:00 echo 05/2016: mod LVH. sev decreased lv fn. (global). rv not well seen. 1+ mr, mod tr, small effusion. Echo 10/2015: Moderately decreased LV function (global). Nl RV size/fn. 1+ MR. mild-mod TR. mild ao dilation. Trivial effusion. cath 06/2013: 60-70 rpl1, 80-90 d1, subtotal om1 MIBI 08/2014 (pers): no STs; no ischemia seen; predominantly fixed medium-sized inferior/basal inferolat/apico-inferior defect c/w diaphragm attenuation; EF 46% a/p: 55 yo with h/o afib with prior ?embolic CVA 05/2014 ([facility]) right visual field cut, syncope 09/19 with ICH at that time vs other entity on MRI and recurrent syncope 12/2015 (unclear etiology), Non-ischemic cardiomyopathy dx 2013 at [facility], HTN, HPL, Rt carotid stenosis, IDDM, RLE cellulitis s/p debridement, MSSA bacteremia 10/2015, DAMIAN not on home cpap, ckd, recently discharged from admisstion with sob/elom. presents with sob and hypertension. HTN - presented with bp 212/130. - after resuming anti-hypertensives bp improved. currently reasonable control given prior history of orthostatic hypotension chest tightness/sob: - likely 2/2 RVR. rate controlled and feeling better now - borderline troponin x3 consistent with prior baseline values, no indication of acs. ekg without ischemic changes. 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 Contrast enhancing lesion seen 06/19 and the prior heme on MRI were in same location and was thought to be most likely 2/2 post CVA hemorrhagic conversion (i.e. without hi risk for recurrent ICH). Less likely low-grade glioma, which would have very low risk of bleeding if AC resumed--hence the recs at that time were for usual AC considerations for his afib, no special precautions (pt failed repeatedly to f/u with neuro as outpatient, and then worsening renal fxn made him hi risk for morena when here last time). -warfarin changed to eliquis on past admits due to pt's repeated refusal to f/u with cardiology or have reliable INRs and make rec'd coumadin dose change, with worrisome CHADS-VASC 6 = estimated risk 9-10%/year, and hence concern he will stroke again on warfarin. - now on eliquis - resumed home regimen toprol 150 mg bid, HR improved today - trigger may be infection, with elevated white count and fevers. mgm't per pmd /ID cad: -managed medically, -no signs acs, con't r/o [place]. -continue home statin, bb, imdur, hydralazine -con't to defer ASA as pt with stable CAD in past and also on AC chronic syst chf, NICM: -stable. wt near baseline. no chf symptoms -05/21 cont po torsemide for now, but creatinine slowly worsening since switching to torsemide. does not appear underdiuresed. Will reassess accuracy of weight today and decide tomorrow whether to adjust diuretic regimen. No sx' s of dizziness/orthostasis. - 05/22: creatinine worse again today. weight stable. Will hold torsemide dose tomorrow (already received today) -Will now resume home torsemide 40 qd R carotid stenosis: -ADRIENNE with PSV in high 200s cm/sec here, suspicious for >70% stenosis per radiology report -vascular surgery c/s on prior admit felt stenosis is at MOST 70% (deferred further imaging with contrast due to low GFR). Recommended deferring CEA unless imaging suggested >80% stenosis, or if he developed symptoms/acute cerebrovascular event. mild Ao dilation - nl size on most recent echo - Con't bb. Routine outpatient surveillance CKD: - cr near baseline DAMIAN - CPAP qhs
--- NOTE | 2016-05-24 17:14 | PN ---
Progress Note (short form) - Note Progress Note: Subjective: The patient was seen and examined at the bedside, he reports feeling good today. Current Medications Generic Name Dose Route Start Last Admin Trade Name Brianna PRN Reason Stop Dose Admin Apixaban 5 mg 05/16/16 10:00 05/24/16 09:26 Eliquis - PO 5 mg BID ANURADHA Administration Atorvastatin Calcium 10 mg 05/16/16 22:00 05/23/16 22:06 Lipitor - PO 10 mg HS ANURADHA Administration Hydralazine HCl 50 mg 05/19/16 22:00 05/24/16 09:26 Apresoline - PO 50 mg BID ANURADHA Administration Clindamycin Phosphate 50 mls @ 100 mls/hr 05/18/16 15:45 05/24/16 09:27 Cleocin 600 Mg Premix Ivpb - IVPB 100 mls/hr Q8H-IV ANURADHA Administration Piperacillin Sod/Tazobactam Sod 50 mls @ 100 mls/hr 05/18/16 15:45 05/24/16 17: 02 Zosyn 2.25gm Ivpb (Pre-Docked) IVPB 100 mls/hr Q8H-IV ANURADHA Administration Protocol Insulin Aspart 1 vial 05/19/16 16:30 05/24/16 16:55 Novolog Vial Sliding Scale - SQ Not Given ACHS [facility] Protocol Insulin Detemir 28 units 05/16/16 22:00 05/23/16 22:07 Levemir Vial SQ 28 units HS ANURADHA Administration Isosorbide Mononitrate 60 mg 05/16/16 10:00 05/24/16 09:26 Imdur - PO 60 mg BID ANURADHA Administration Metoprolol Succinate 150 mg 05/16/16 10:00 05/24/16 09:26 Toprol Xl - PO 150 mg BID ANURADHA Administration Nystatin 1 applic 05/17/16 10:00 05/24/16 09:27 Nystop Powder - TP 1 applic DAILY ANURADHA Administration Tamsulosin HCl 0.4 mg 05/16/16 08:30 05/24/16 09:26 Flomax - PO 0.4 mg DAILY@0830 ANURADHA Administration Torsemide 40 mg 05/25/16 10:00 Demadex - PO DAILY ANURADHA Objective: Vital Signs Period Temp Pulse Resp BP Sys/Perez Pulse Ox Last 24 Hr 98.2 F-98.7 F 72-98 18-22 134-164/79-96 96-98 Physical Exam: General: Morbidly obese Lungs: CTA bilaterally Heart: Irregular rate and rhythm Abd: Under pannus with mild erythema. Scrotal erythema. Soft, non-distended. Normoactive bowel sounds : Scrotal edema, improving Ext: 1+ B/l lower extremity edema, b/l [place] extremity erythema. B/l knee abrasion Neuro: CN 2-12 intact CBCD WBC 13.1 K/mm3 (4.0-10.0) H 05/23/16 06:00 RBC 4.22 M/mm3 (4.00-5.60) 05/23/16 06:00 Hgb 12.3 GM/dL (11.7-16.9) 05/23/16 06:00 Hct 37.5 % (35.4-49) 05/23/16 06:00 MCV 88.8 fl (80-96) 05/23/16 06:00 MCHC 32.7 g/dl (32.0-35.9) 05/23/16 06:00 RDW 17.4 % (11.9-15.9) H 05/23/16 06:00 Plt Count 184 K/MM3 (134-434) 05/23/16 06:00 MPV 8.5 fl (7.5-11.1) 05/23/16 06:00 CMP Sodium 140 mmol/L (136-145) 05/23/16 06:00 Potassium 3.9 mmol/L (3.5-5.1) 05/23/16 06:00 Chloride 104 mmol/L (98-107) 05/23/16 06:00 Carbon Dioxide 27 mmol/L (21-32) 05/23/16 06:00 Anion Gap 9 (8-16) 05/23/16 06:00 BUN 45 mg/dL (7-18) H 05/23/16 06:00 Creatinine 2.7 mg/dL (0.7-1.3) H 05/23/16 06:00 Creat Clearance w eGFR 24.84 (>60) 05/23/16 06:00 Random Glucose 67 mg/dL (74-106) L 05/23/16 06:00 Calcium 8.4 mg/dL (8.5-10.1) L 05/23/16 06:00 Total Bilirubin 0.9 mg/dL (0.2-1.0) 05/23/16 06:00 AST 17 U/L (15-37) 05/23/16 06:00 ALT 13 U/L (12-78) 05/23/16 06:00 Alkaline Phosphatase 130 U/L (45-117) H 05/23/16 06:00 Total Protein 6.7 g/dl (6.4-8.2) 05/23/16 06:00 Albumin 2.7 g/dl (3.4-5.0) L 05/23/16 06:00 CARDIAC ENZYMES Creatine Kinase 161 IU/L (39-308) 05/16/16 15:40 Troponin I 0.08 ng/ml (0.00-0.05) H 05/16/16 15:40 Microbiology 05/17/16 03:00 Blood - Peripheral Venous Blood Culture - Final NO GROWTH AFTER 5 DAYS INCUBATION 05/17/16 03:00 Blood - Peripheral Venous Blood Culture - Final NO GROWTH AFTER 5 DAYS INCUBATION 05/19/16 05:20 Urine - Urine Clean Catch Urine Culture - Final 05/17/16 03:00 Urine - Urine Clean Catch Urine Culture - Final Contaminated: Please Repeat Assessment: This is a 55 year old male with PMHx of A.fib (on eliquis), CAD, CHF , 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 Plan: 1) Cardiology: chest pressure - Borderline elevation in troponin - No current signs of ACS, EKG with no signs of ischemia - Continue Lipitor - Continue Imdur - Continue hydralazine - Continue Metoprolol - Appreciate cardiology consult Acute systolic heart failure exacerbation - B/l lower extremity edema - Continue Torsemide daily - Bipap at night, DAMIAN but is non-compliant at home - Daily weights - Strict I&O A.fib - Continue Eliquis - Rate controlled on Metoprolol XL - Appreciate cardiology consult 2) : CKD - Cr 2.7, baseline ~2.6, continue to monitor - Continue to monitor 3) ID: B/l lower extremity erythema, luke under pannus, acute epididymitis - Continue Clindamycin - Continue Zosyn - Improving - Can switch to po tomorrow - Nystatin powder for under pannus - Appreciate ID consult 4) Endocrine: IDDM - BGM ACHS - ISS ACHS - Levemir 28u sq qhs 5) F/E/N: - Diabetic low sodium diet - Monitor electrolytes 6) Prophylaxis: - On Eliquis - OOB ambulating 7) Dispo: - Requires continued inpatient care - Can be discharged once scrotal cellulitis resolved CODE STATUS: FULL CODE Visit type - Emergency Visit Emergency Visit: Yes ED Registration Date: 05/17/16 Care time: The patient presented to the Emergency Department on the above date and was hospitalized for further evaluation of their emergent condition. - New Patient This patient is new to me today: No - Critical Care Critical Care patient: No
[2016-05-24] MEDS: ATORVASTATIN CA 10 MG TABLET (FP) PO SCH (20:59)
[2016-05-24] MEDS: INSULIN DETEMIR 100 UNITS/ML MDV SQ SCH (20:59)
[2016-05-25] MEDS: CLINDAMYCIN 600MG PREMIX IVPB 50 ML IVPB SCH ×2 (01:20→10:04)
[2016-05-25] MEDS: PIPERACILLIN/TAZOB 2.25 GM 50 ML IVPB SCH ×2 (02:09→10:03)
[2016-05-25] MEDS: INSULIN SLIDING SCALE (NOVOLOG) 1 VIAL SQ SCH (06:05)
[2016-05-25 07:05] LABS: MCH 29.4 pg (25.7-33.7); MCHC 32.9 g/dl (32.0-35.9); MEAN CELL VOLUME 89.5 fl (80-96); MEAN PLT VOLUME 8.2 fl (7.5-11.1); PLATELET COUNT 178 K/MM3 (134-434); RDW 16.8 % (11.9-15.9); WHITE BLOOD COUNT 11.8 K/mm3 (4.0-10.0)
[2016-05-25 07:29] LABS: ALBUMIN 2.7 g/dl (3.4-5.0); BILIRUBIN,TOTAL 0.7 mg/dL (0.2-1.0); CALCIUM 8.5 mg/dL (8.5-10.1); COCKROFT - GAULT 74.98; CREATININE 2.6 mg/dL (0.7-1.3); TOT PROT 6.5 g/dl (6.4-8.2)
[2016-05-25] MEDS ORDERED: TORSEMIDE 20 MG TABLET (FP) PO SCH (10:00)
[2016-05-25] MEDS ORDERED: PT OWN MED DRAWER 7, Y5N ONE (10:00)
[2016-05-25] MEDS: METOPROLOL SUCCINATE 50 MG TAB.SR.24H (FP) PO SCH (10:03)
[2016-05-25] MEDS: TAMSULOSIN HCL 0.4 MG CAP.ER.24H (FP) PO SCH (10:03)
[2016-05-25] MEDS: hydrALAZINE HCL 50 MG TABLET (FP) PO SCH (10:03)
[2016-05-25] MEDS: ISOSORBIDE MONONITRATE 60 MG TAB.SR.24H (FP) PO SCH (10:03)
[2016-05-25] MEDS: APIXABAN 5 MG TABLET PO SCH (10:03)
[2016-05-25] MEDS: NYSTATIN POWDER 100,000 UNITS/GM - 15 GM TOPICAL POWDER TP SCH (10:05)
--- NOTE | 2016-05-25 12:14 | PN ---
Progress Note (short form) - Note Progress Note: s: no cp sob palps dizzy o: Vital Signs Period Temp Pulse Resp BP Sys/Perez Pulse Ox Last 24 Hr 98.2 F-98.7 F 72-90 20-20 134-151/77-98 94-97 Constitutional: Yes: No Distress, Obese Eyes: No: Sclera Icterus Respiratory: cta bl nl eff Gastrointestinal: Yes: Normal Bowel Sounds. obese No: Distention, Hepatomegaly, Palpable Mass, tenderness Cardiovascular: Yes: Irregular Rhythm, nl rate JVD: tds Heart Sounds: Yes: nl, S1, S2. No: Gallop Murmur: No: Systolic Murmur, Diastolic Murmur Edema: no sig le edema, +erythema of shins bl Integumentary: No: Jaundice diaphoresis Neurological: Yes: Alert, Oriented (x3) Psychiatric: No: Agitated Current Medications Generic Name Dose Route Start Last Admin Trade Name Freq PRN Reason Stop Dose Admin Apixaban 5 mg 05/16/16 10:00 05/25/16 10:03 Eliquis - PO 5 mg BID ANURADHA Administration Atorvastatin Calcium 10 mg 05/16/16 22:00 05/24/16 20:59 Lipitor - PO 10 mg HS ANURADHA Administration Hydralazine HCl 50 mg 05/25/16 14:00 Apresoline - PO TID ANURADHA Clindamycin Phosphate 50 mls @ 100 mls/hr 05/18/16 15:45 05/25/16 10:04 Cleocin 600 Mg Premix Ivpb - IVPB 100 mls/hr Q8H-IV ANURADHA Administration Piperacillin Sod/Tazobactam Sod 50 mls @ 100 mls/hr 05/18/16 15:45 05/25/16 10: 03 Zosyn 2.25gm Ivpb (Pre-Docked) IVPB 100 mls/hr Q8H-IV ANURADHA Administration Protocol Insulin Aspart 1 vial 05/19/16 16:30 05/25/16 06:05 Novolog Vial Sliding Scale - SQ Not Given ACHS [facility] Protocol Insulin Detemir 28 units 05/16/16 22:00 05/24/16 20:59 Levemir Vial SQ 28 units HS ANURADHA Administration Isosorbide Mononitrate 60 mg 05/16/16 10:00 05/25/16 10:03 Imdur - PO 60 mg BID ANURADHA Administration Metoprolol Succinate 150 mg 05/16/16 10:00 05/25/16 10:03 Toprol Xl - PO 150 mg BID ANURADHA Administration Nystatin 1 applic 05/17/16 10:00 05/25/16 10:05 Nystop Powder - TP 1 applic DAILY ANURADHA Administration Tamsulosin HCl 0.4 mg 05/16/16 08:30 05/25/16 10:03 Flomax - PO 0.4 mg DAILY@0830 ANURADHA Administration Torsemide 40 mg 05/25/16 10:00 05/25/16 10:03 Demadex - PO 40 mg DAILY ANURADHA Administration CBC, BMP 05/25/16 06:00 05/25/16 06:00 echo 05/2016: mod LVH. sev decreased lv fn. (global). rv not well seen. 1+ mr, mod tr, small effusion. Echo 10/2015: Moderately decreased LV function (global). Nl RV size/fn. 1+ MR. mild-mod TR. mild ao dilation. Trivial effusion. cath 06/2013: 60-70 rpl1, 80-90 d1, subtotal om1 MIBI 08/2014 (pers): no STs; no ischemia seen; predominantly fixed medium-sized inferior/basal inferolat/apico-inferior defect c/w diaphragm attenuation; EF 46% a/p: 55 yo with h/o afib with prior ?embolic CVA 05/2014 ([facility]) right visual field cut, syncope 09/19 with ICH at that time vs other entity on MRI and recurrent syncope 12/2015 (unclear etiology), Non-ischemic cardiomyopathy dx 2013 at [facility], HTN, HPL, Rt carotid stenosis, IDDM, RLE cellulitis s/p debridement, MSSA bacteremia 10/2015, DAMIAN not on home cpap, ckd, recently discharged from admisstion with sob/elmo. presents with sob and hypertension. HTN -bp high at times, will increase hydralazine from bid to tid dosing (pt reports taking tid at home) chest tightness/sob: - likely 2/2 RVR. rate controlled and feeling better now - borderline troponin x3 consistent with prior baseline values, no indication of acs. ekg without ischemic changes. 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 Contrast enhancing lesion seen 06/19 and the prior heme on MRI were in same location and was thought to be most likely 2/2 post CVA hemorrhagic conversion (i.e. without hi risk for recurrent ICH). Less likely low-grade glioma, which would have very low risk of bleeding if AC resumed--hence the recs at that time were for usual AC considerations for his afib, no special precautions (pt failed repeatedly to f/u with neuro as outpatient, and then worsening renal fxn made him hi risk for morena when here last time). -warfarin changed to eliquis on past admits due to pt's repeated refusal to f/u with cardiology or have reliable INRs and make rec'd coumadin dose change, with worrisome CHADS-VASC 6 = estimated risk 9-10%/year, and hence concern he will stroke again on warfarin. - now on eliquis - resumed home regimen toprol 150 mg bid, HR improved today - trigger may be infection, with elevated white count and fevers. mgm't per pmd /ID cad: -managed medically, -no signs acs, con't r/o OK. -continue home statin, bb, imdur, hydralazine -con't to defer ASA as pt with stable CAD in past and also on AC chronic syst chf, NICM: -stable. wt near baseline. no chf symptoms -05/21 cont po torsemide for now, but creatinine slowly worsening since switching to torsemide. does not appear underdiuresed. Will reassess accuracy of weight today and decide tomorrow whether to adjust diuretic regimen. No sx' s of dizziness/orthostasis. - 05/22: creatinine worse again today. weight stable. Will hold torsemide dose tomorrow (already received today) - 05/24-20: cont home torsemide 40 qd R carotid stenosis: -ADRIENNE with PSV in high 200s cm/sec here, suspicious for >70% stenosis per radiology report -vascular surgery c/s on prior admit felt stenosis is at MOST 70% (deferred further imaging with contrast due to low GFR). Recommended deferring CEA unless imaging suggested >80% stenosis, or if he developed symptoms/acute cerebrovascular event. mild Ao dilation - nl size on most recent echo - Con't bb. Routine outpatient surveillance CKD: - cr near baseline DAMIAN - CPAP qhs
--- NOTE | 2016-05-25 13:20 | PN ---
Progress Note, Physician History of Present Illness: doing well no issues no complaints no tenderness - Current Medication List Current Medications: Active Medications Apixaban (Eliquis -) 5 mg PO BID [facility] Last Admin: 05/25/16 10:03 Dose: 5 mg Atorvastatin Calcium (Lipitor -) 10 mg PO HS [facility] Last Admin: 05/24/16 20:59 Dose: 10 mg Hydralazine HCl (Apresoline -) 50 mg PO TID [facility] Clindamycin Phosphate (Cleocin 600 Mg Premix Ivpb -) 50 mls @ 100 mls/hr IVPB Q8H-IV [facility] Last Admin: 05/25/16 10:04 Dose: 100 mls/hr Piperacillin Sod/Tazobactam Sod (Zosyn 2.25gm Ivpb (Pre-Docked)) 50 mls @ 100 mls/hr IVPB Q8H-IV [facility] PRN Reason: Protocol Last Admin: 05/25/16 10:03 Dose: 100 mls/hr Insulin Aspart (Novolog Vial Sliding Scale -) 1 vial SQ [facility] PRN Reason: Protocol Last Admin: 05/25/16 06:05 Dose: Not Given Insulin Detemir (Levemir Vial) 28 units SQ [facility] Last Admin: 05/24/16 20:59 Dose: 28 units Isosorbide Mononitrate (Imdur -) 60 mg PO BID [facility] Last Admin: 05/25/16 10:03 Dose: 60 mg Metoprolol Succinate (Toprol Xl -) 150 mg PO BID [facility] Last Admin: 05/25/16 10:03 Dose: 150 mg Nystatin (Nystop Powder -) 1 applic TP DAILY [facility] Last Admin: 05/25/16 10:05 Dose: 1 applic Tamsulosin HCl (Flomax -) 0.4 mg PO DAILY@0830 [facility] Last Admin: 05/25/16 10:03 Dose: 0.4 mg Torsemide (Demadex -) 40 mg PO DAILY [facility] Last Admin: 05/25/16 10:03 Dose: 40 mg - Objective Vital Signs: Vital Signs Temperature 98.7 F 05/25/16 06:00 Pulse Rate 87 05/25/16 06:00 Respiratory Rate 20 05/25/16 06:00 Blood Pressure 146/98 05/25/16 06:00 O2 Sat by Pulse Oximetry (%) 97 05/24/16 20:32 Constitutional: Yes: No Distress, Calm Cardiovascular: Yes: S1, S2 Respiratory: Yes: WNL, Poor Air Entry Gastrointestinal: Yes: Normal Bowel Sounds, Soft Genitourinary: Yes: Scrotal Edema (minimal tenderness minimal erythema nearly resolved) Musculoskeletal: Yes: WNL Extremities: Yes: WNL Integumentary: Yes: Erythema (nearly resolved) Neurological: Yes: Alert, Oriented Psychiatric: Yes: Alert, Oriented Labs: CBC, BMP 05/25/16 06:00 05/25/16 06:00 INR, PTT INR 1.50 (0.82-1.09) H 05/16/16 03:59 Assessment/Plan HTN chest tightness/sob: Afib, h/o ischemic cva 05/20, cad: chronic syst chf, NICM: R carotid stenosis: CKD: DAMIAN fungal infection of the groin leukocytosis cellulitis of the scrotum improving plan clinda 300mg every 8 hourly for 5 more days augmentin 500 mg bid for 5 more days
[2016-05-25] MEDS ORDERED: hydrALAZINE HCL 50 MG TABLET (FP) PO SCH (14:00)
--- NOTE | 2016-05-25 14:05 | DS ---
Physical Exam: SUBJECTIVE: Patient seen and examined OBJECTIVE: Vital Signs Period Temp Pulse Resp BP Sys/Perez Pulse Ox Last 24 Hr 98.2 F-98.7 F 72-90 20-20 134-151/77-98 94-97 PHYSICAL EXAM GENERAL: The patient is awake, alert, and fully oriented, in no acute distress. HEAD: Normal with no signs of trauma. EYES: PERRL, extraocular movements intact, sclera anicteric, conjunctiva clear. ENT: Ears normal, nares patent, oropharynx clear without exudates, moist mucous membranes. NECK: Trachea midline, full range of motion, supple. LUNGS: Breath sounds equal, clear to auscultation bilaterally, no wheezes, no crackles, no accessory muscle use. HEART: Regular rate and rhythm, S1, S2 without murmur, rub or gallop. ABDOMEN: Soft, nontender, nondistended, normoactive bowel sounds, no guarding, no rebound, no hepatosplenomegaly, no masses. EXTREMITIES: 2+ pulses, warm, well-perfused, no edema. NEUROLOGICAL: Cranial nerves II through XII grossly intact. Normal speech, gait not observed. PSYCH: Normal mood, normal affect. SKIN: Warm, dry, normal turgor, no rashes or lesions noted. LABS Laboratory Results - last 24 hr 05/24/16 05/24/16 05/25/16 16:53 20:34 06:00 WBC 11.8 H RBC 4.07 Hgb 12.0 Hct 36.4 MCV 89.5 MCHC 32.9 RDW 16.8 H Plt Count 178 MPV 8.2 Sodium Potassium Chloride Carbon Dioxide Anion Gap BUN Creatinine Creat Clearance w eGFR POC Glucometer 107 113 Random Glucose Calcium Total Bilirubin AST ALT Alkaline Phosphatase Total Protein Albumin 05/25/16 05/25/16 05/25/16 06:00 06:01 12:03 WBC RBC Hgb Hct MCV MCHC RDW Plt Count MPV Sodium 141 Potassium 4.3 Chloride 106 Carbon Dioxide 26 Anion Gap 9 BUN 38 H Creatinine 2.6 H Creat Clearance w eGFR 25.95 POC Glucometer 85 86 Random Glucose 92 D Calcium 8.5 Total Bilirubin 0.7 D AST 15 ALT 12 Alkaline Phosphatase 127 H Total Protein 6.5 Albumin 2.7 L HOSPITAL COURSE: Date of Admission:05/17/16 Date of Discharge: 05/25/16 Discharge Summary Reason For Visit: AFIB ACUTE EXACERBATION CHF Current Active Problems Acute exacerbation of CHF (congestive heart failure) (Acute) History of CVA with residual deficit (Chronic) Hyperlipemia (Chronic) Splenic abscess (Chronic) Uncontrolled diabetes mellitus (Chronic) atrial fibrillation (Chronic) Condition: Stable - Instructions Diet, Activity, Other Instructions: Please follow up with Dr. Ho as an outpatient with 1 week after discharge. Continue antibiotics as prescribed: Clindamycin 300mg every 8 hours for 5 more days Augmentin 500mg BID for 5 more days Please return to the ER with worsening or persistent symptoms. Follow up with your PCP within 1 week after discharge. Referrals: Mika Ho MD [Primary Care Provider] - Disposition: HOME - Home Medications Comprehensive Discharge Medication List: Ambulatory Orders Insulin (Novolog) [Novolog Flexpen -] 4 units SQ AC #1 pen 09/07/14 Atorvastatin Ca [Lipitor] 10 mg PO HS #30 tablet 02/26/15 Hydralazine HCl [Apresoline -] 100 mg PO TID #90 tablet 02/26/15 Insulin (Levemir) [Levemir Vial] 28 units SQ HS #7 ml 02/26/15 Isosorbide Mononitrate [Imdur -] 60 mg PO BID #60 tab.sr.24h 02/26/15 Metoprolol Succinate [Toprol XL -] 150 mg PO BID #60 tab.sr.24h 02/26/15 Apixaban [Eliquis -] 5 mg PO BID #60 tablet 10/29/15 Tamsulosin HCl [Flomax -] 0.4 mg PO DAILY@0830 cap.er.24h 04/02/16 Amox-Tr/K Cl [Augmentin 500-125mg Tablet -] 1 tab PO BID@0800,1730 #7 tablet 08/21 Torsemide [Demadex -] 40 mg PO DAILY #30 tablet 05/12/16
[2016-05-25 14:52] VITALS: BP 149/81; PULSE 86; TEMP 97.5
[2016-05-25] MEDS ORDERED: AMOX TR/POT CLAV 500MG/125MG TABLETS (FP) PO SCH (17:30)
[2016-05-25] MEDS ORDERED: CLINDAMYCIN HCL 150 MG CAPSULE (FP) PO SCH (18:00)
== END 2016-05-25 15:23 | disposition home or self-care (01) | DRG 199 ==
LOC: JER 03:06 → JERBED 05:52 → J4S 05-17 02:09 → OBSVTOIN 05-17 11:01 → J7W 05-18 20:21
PROVIDERS: ADMIT Internal Medicine; ATTEND Nurse Practitioner Family
DX: I16.0 Hypertensive urgency (principal); K57.92 Diverticulitis of intestine, part unspecified, without perforation or abscess without bleeding; I25.10 Atherosclerotic heart disease of native coronary artery without angina pectoris; I48.91 Unspecified atrial fibrillation; E78.5 Hyperlipidemia, unspecified; B35.6 Tinea cruris; N49.2 Inflammatory disorders of scrotum; I42.8 Other cardiomyopathies; I65.21 Occlusion and stenosis of right carotid artery; G47.33 Obstructive sleep apnea (adult) (pediatric); I13.0 Hypertensive heart and chronic kidney disease with heart failure and stage 1 through stage 4 chronic kidney disease, or unspecified chronic kidney disease; I50.22 Chronic systolic (congestive) heart failure; N18.4 Chronic kidney disease, stage 4 (severe); E11.9 Type 2 diabetes mellitus without complications; N45.1 Epididymitis; K74.69 Other cirrhosis of liver; Z86.73 Personal history of transient ischemic attack (TIA), and cerebral infarction without residual deficits; Z79.4 Long term (current) use of insulin
CPT/HCPCS: 36415; 36600; 71010-TC; 71020-TC; 76870-TC; 80048; 80053; 81003; 81015; 82550; 82553; 82803; 83735; 83880; 84100; 84484; 85025; 85027; 85610; 87040; 87086; 93005; 93010; 94660; 97116-GP; 97161-GP; 99285-25; G0378

== ENCOUNTER 2016-10-27 09:51 | Inpatient (IN) | payer OTHER ==
--- NOTE | 2016-10-27 10:08 | PDOC ---
History of Present Illness - General History Source: Patient - History of Present Illness Presenting Symptoms: Chest Pain Timing/Duration: reports: constant Severity/Quality: reports: moderate Chest Pain Radiation: reports: no radiation <BathBertha - Last Filed: 10/27/16 13:16> <Maki Miller - Last Filed: 10/28/16 17:13> - General Chief Complaint: Chest Pain Stated Complaint: CHEST PAIN Time Seen by Provider: 10/27/16 09:56 Past History - Past Medical History Anemia: No Asthma: No Cancer: No Cardiac Disorders: Yes (a-fib, CAD, ASHD, Non-ichemic CMP, cardiomegaly) CVA: Yes (05/20(ischemic), 06/19(leftside occipital hemmorrage)-right peripheral impair) COPD: No CHF: Yes Dementia: No Diabetes: Yes (IDDM) GI Disorders: Yes (DIVERTICULOSIS, spleenic abcess) Disorders: Yes (CKD, CRI) HTN: Yes Hypercholesterolemia: Yes Liver Disease: Yes (CIRRHOSIS) Seizures: No Thyroid Disease: No - Surgical History Orthopedic Surgery: Yes (RT FOOT debridements) - Immunization History Immunization Up to Date: Yes - Suicide/Smoking/Psychosocial Hx Smoking History: Never smoked Have you smoked in the past 12 months: No Hx Alcohol Use: No Drug/Substance Use Hx: No Substance Use Type: None Hx Substance Use Treatment: No <Bertha Rubalcava - Last Filed: 10/27/16 13:16> <Maki Miller - Last Filed: 10/28/16 17:13> - Past Medical History Allergies/Adverse Reactions: Allergies Allergy/AdvReac Type Severity Reaction Status Date / Time ciprofloxacin [From Cipro] Allergy Severe Rash Verified 05/16/16 03:42 ciprofloxacin HCl Allergy Severe Rash Verified 05/16/16 03:42 [From Cipro] Home Medications: Ambulatory Orders Amlodipine Besylate [Norvasc -] 10 mg PO DAILY 10/27/16 Apixaban [Eliquis -] 5 mg PO BID 10/27/16 Atorvastatin Ca [Lipitor] 80 mg PO HS 10/27/16 Bacitracin - [Bacitracin Topical Ointment -] 1 applic TP BID PRN 10/27/16 Digoxin [Lanoxin -] 125 mcg PO Q2D 10/27/16 Escitalopram Oxalate [Lexapro -] 10 mg PO DAILY 10/27/16 Gabapentin [Neurontin] 300 mg PO BID 10/27/16 Isosorbide Mononitrate [Imdur] 60 mg PO BID 10/27/16 Lactulose 10 gm PO DAILY 10/27/16 Oxycodone HCl/Acetaminophen [Percocet 5-325 mg Tablet] 1 tab PO Q6H PRN Pantoprazole Sodium [Protonix] 40 mg PO DAILY 10/27/16 Tamsulosin HCl [Flomax] 0.4 mg PO DAILY 10/27/16 Cardiac Specific PMH - Complaint Specific PMHX Pacemaker: No <Bertha Rubalcava Last Filed: 10/27/16 13:16> Review of Systems - Review of Systems Constitutional: No: Chills, Fever Respiratory: No: Cough, Shortness of Breath Cardiac (ROS): Yes: Chest Pain. No: Lightheadedness, Palpitations ABD/GI: No: Nausea, Vomiting <Bertha Rubalcava - Last Filed: 10/27/16 13:16> *Physical Exam - Physical Exam General Appearance: Yes: Appropriately Dressed. No: Apparent Distress HEENT: positive: Normal Voice Neck: positive: Supple Respiratory/Chest: positive: Lungs Clear, Normal Breath Sounds. negative: Respiratory Distress Cardiovascular: positive: Regular Rate, S1, S2 Gastrointestinal/Abdominal: positive: Soft. negative: Tender Extremity: positive: Normal Inspection, Pedal Edema (trace b/l) Integumentary: positive: Dry, Warm Neurologic: positive: Fully Oriented, Alert, Normal Mood/Affect <Bertha Rubalcava - Last Filed: 10/27/16 13:16> - Vital Signs Last Vital Signs Temp Pulse Resp BP Pulse Ox 98.2 F 80 20 153/81 96 10/28/16 14:00 10/28/16 14:00 10/28/16 14:00 10/28/16 14:00 10/28/16 10:00 ED Treatment Course - LABORATORY CBC & Chemistry Diagram: 10/27/16 10:20 10/27/16 10:20 <Bertha Rubalcava - Last Filed: 10/27/16 13:16> - LABORATORY CBC & Chemistry Diagram: 10/28/16 06:00 10/28/16 06:00 <Maki Miller - Last Filed: 10/28/16 17:13> - ADDITIONAL ORDERS Additional order review: 10/27/16 10:20 RBC 3.51 L MCV 90.9 MCHC 33.3 RDW 16.8 H MPV 7.0 L D Neutrophils % 79.9 Lymphocytes % 6.9 L D Monocytes % 7.2 Eosinophils % 5.4 H Basophils % 0.6 - Medications Given in the ED: ED Medications Discontinued Medications Generic Name Dose Route Start Last Admin Trade Name Brianna PRN Reason Stop Dose Admin Clindamycin Phosphate 50 mls @ 100 mls/hr 10/27/16 11:07 10/27/16 11:33 Cleocin 600 Mg Premix Ivpb - IVPB 10/27/16 11:36 100 mls/hr ONCE ONE Administration Ceftriaxone Sodium 1 gm/ 50 mls @ 100 mls/hr 10/27/16 13:49 10/27/16 14:07 Dextrose IVPB 10/27/16 14:18 100 mls/hr ONCE ONE Administration Vancomycin HCl 1,000 mg/ 250 mls @ 166.667 mls/hr 10/27/16 14:30 10/27/16 14:54 Dextrose IVPB 10/27/16 15:59 200 mls/hr ONCE ONE Administration Tramadol HCl 50 mg 10/27/16 10:34 10/27/16 11:00 Ultram - PO 10/27/16 10:35 50 mg ONCE ONE Administration Medical Decision Making <Bertha Rubalcava - Last Filed: 10/27/16 13:16> <Maki Miller - Last Filed: 10/28/16 17:13> - Medical Decision Making 10/27/16 10:06 56-year-old male, resident at [facility], morbidly obeses, A. fib on eliquis, CAD, CHF, CVA with left-sided residual deficit, IDDM, CKD, cirrhosis, diverticulitis, presents with chest pain. Patient reports pressure-like, left- sided, non-radiating chest pain that started several hours ago, constant, with an intensity of 5 out of 10. Has had similar pain in the past per patient. No diaphoresis, shortness of breath, nausea, vomiting, palpitations, acute leg pain or swelling. No cough or fever See exam CP Recurrent Has sig cardiac hx S/p admission for CP 05/22 and managed medically w/ no s/o ACS as per cards notes , (no stress/echo done at the time), pt not on asa given stable CAD and also on AC as per documentation Pt well supriya and stable in ED R/o ACS, less likely PE, dissection or PNA -ekg -cxr -labs -discuss dispo w/ Dr Raphael of cards 10/27/16 11:06 EKG with new flipped T's in leads V4 through V6, new compared to EKG May 2016. Troponin 0.03. BNP >8K but significantly better compared to old numbers, No e/o fluid overload on exam. CXR pending. White count of 20. Patient without any obvious infectious symptoms. UA and CXR read pending. Has chronic appearing ulcer with limited erythema over sacral area with no overt signs of acute infection, but will consider a dose of antibiotics in ED 10/27/16 11:14 10/27/16 11:[address] Bray who is covering for patient's PMD, Dr. Christian, states to admit to telemetry under his service for serial trops. Aware that I have sent out a page to Dr Raphael, pt's cards. recommending that Dr Lund of ID be c/s given wbc of 20. 10/27/16 11:22 10/27/16 11:23 10/27/16 11:[address] Drake of cardiology. Agrees with serial trops, no further recommendations at this time (Bertha Rubalcava) *DC/Admit/Observation/Transfer - Discharge Dispostion Admit: Yes <Bertha Rubalcava - Last Filed: 10/27/16 13:16> <Maki Miller - Last Filed: 10/28/16 17:13> Diagnosis at time of Disposition: Chest pain Qualifiers: Chest pain type: unspecified Qualified Code(s): R07.9 - Chest pain, unspecified - Discharge Dispostion Condition at time of disposition: Fair - Referrals - Attestations Physician Attestion: I reviewed the case with the mid-level practitioner and agree with the mid- level practitioner's assessment, diagnosis and disposition. (Maki Miller)
[2016-10-27 10:14] VITALS: BMI 37.5
[2016-10-27] MEDS ORDERED: traMADol HCL 50 MG TABLET PO ONE (10:34)
[2016-10-27 10:36] LABS: BASOPHIL 0.6 % (0-2.0); EOSINOPHIL 5.4 % (0-4.5); MCH 30.2 pg (25.7-33.7); MCHC 33.3 g/dl (32.0-35.9); MEAN CELL VOLUME 90.9 fl (80-96); NEUTROPHILS 79.9 % (42.8-82.8); PLATELET COUNT 316 K/MM3 (134-434); RDW 16.8 % (11.9-15.9); WHITE BLOOD COUNT 20.3 K/mm3 (4.0-10.0)
[2016-10-27 11:07] LABS: ALBUMIN 2.9 g/dl (3.4-5.0); ANION GAP 9 (8-16); BILIRUBIN,TOTAL 0.9 mg/dL (0.2-1.0); CALCIUM 8.6 mg/dL (8.5-10.1); CO2 28 mmol/L (21-32); CPK 45 IU/L (39-308); CREATININE 1.9 mg/dL (0.7-1.3); GLUCOSE,RANDOM 83 mg/dL (74-106); SGOT/AST 29 U/L (15-37); SGPT/ALT 18 U/L (12-78); TOT PROT 7.7 g/dl (6.4-8.2)
[2016-10-27] MEDS ORDERED: traMADol HCL 50 MG TABLET ONE (11:07)
[2016-10-27] MEDS ORDERED: CLINDAMYCIN 600MG PREMIX IVPB 50 ML IVPB ONE ×2 (11:07→11:26)
[2016-10-27 11:09] LABS: ALK PHOS 178 U/L (45-117); TROPONIN I 0.03 ng/ml (0.00-0.05)
--- NOTE | 2016-10-27 11:59 | CON.CARD ---
Cardiology Consult (text) - Consultation Consultation Note: CC: cp HPI: 56 yo m with h/o afib with prior ?embolic CVA 05/2014 ([facility]) right visual field cut, repeat cva 08/2016 with left sided weakness, syncope 09/19 with ICH at that time vs other entity on MRI and recurrent syncope 12/2015 (unclear etiology ), Non-ischemic cardiomyopathy dx 07/2013 at [facility], HTN, HPL, Rt carotid stenosis, IDDM, RLE cellulitis s/p debridement, MSSA bacteremia 10/2015, DAMIAN not on home cpap, ckd, sent from [place] for cp. After recent cva 08/2016 pt reports he has been in and out of hospitals and at NH/rehab. Yesterday at rehab was at rest and felt central chest pressure, mild, non radiating, lasted 1 hour, resolved on own. No associated sxs. No recurrence, feeling no cp now. No sob , palps, dizzy, loc, pnd, orthopnea, le edema. Sees dr cohen for cardio in past. Past Medical History: per hpi Past Surgical History: per hpi Social hx: Former smoker, no etoh or illicits Family Disease History: Heart Disease: Mother (in 60's) ros: per hpi; no nvd, cough, nasal congestion, river, vision changes, muscle pain , gib, hematuria, dysuria meds: Home Medications Medication Instructions Recorded Amlodipine Besylate [Norvasc -] 10 mg PO DAILY 10/27/16 Apixaban [Eliquis -] 5 mg PO BID 10/27/16 Atorvastatin Ca [Lipitor] 80 mg PO HS 10/27/16 Bacitracin - [Bacitracin Topical 1 applic TP BID PRN 10/27/16 Ointment -] Digoxin [Lanoxin -] 125 mcg PO Q2D 10/27/16 Escitalopram Oxalate [Lexapro -] 10 mg PO DAILY 10/27/16 Gabapentin [Neurontin] 300 mg PO BID 10/27/16 Isosorbide Mononitrate [Imdur] 60 mg PO BID 10/27/16 Lactulose 10 gm PO DAILY 10/27/16 Oxycodone HCl/Acetaminophen 1 tab PO Q6H PRN 10/27/16 [Percocet 5-325 mg Tablet] Pantoprazole Sodium [Protonix] 40 mg PO DAILY 10/27/16 Tamsulosin HCl [Flomax] 0.4 mg PO DAILY 10/27/16 Vital Signs Period Temp Pulse Resp BP Sys/Perez Pulse Ox Last 24 Hr 98.5 F 61-66 17-20 135-152/60-82 95-98 Constitutional: Yes: No Distress, Obese Eyes: No: Sclera Icterus HENT: No: Nasal Congestion Respiratory: cta bl nl eff Gastrointestinal: Yes: Normal Bowel Sounds. obese No: Distention, Hepatomegaly, Palpable Mass, tenderness Cardiovascular: Yes: Irregular Rate and Rhythm JVD: tds Carotid Bruit: No PMI: Non-Displaced Heart Sounds: Yes: nl, S1, S2. No: Gallop Murmur: No: Systolic Murmur, Diastolic Murmur Edema: no le edema bl Peripheral Pulses: pos dp pt no carotid bruits Integumentary: No: Jaundice diaphoresis Neurological: Yes: Alert, Oriented (x3) Psychiatric: No: Agitated Laboratory Last Values WBC 20.3 K/mm3 (4.0-10.0) H D 10/27/16 10:20 RBC 3.51 M/mm3 (4.00-5.60) L 10/27/16 10:20 Hgb 10.6 GM/dL (11.7-16.9) L D 10/27/16 10:20 Hct 31.9 % (35.4-49) L 10/27/16 10:20 MCV 90.9 fl (80-96) 10/27/16 10:20 MCH 30.2 pg (25.7-33.7) 10/27/16 10:20 MCHC 33.3 g/dl (32.0-35.9) 10/27/16 10:20 RDW 16.8 % (11.9-15.9) H 10/27/16 10:20 Plt Count 316 K/MM3 (134-434) D 10/27/16 10:20 MPV 7.0 fl (7.5-11.1) L D 10/27/16 10:20 Neutrophils % 79.9 % (42.8-82.8) 10/27/16 10:20 Lymphocytes % 6.9 % (8-40) L D 10/27/16 10:20 Monocytes % 7.2 % (3.8-10.2) 10/27/16 10:20 Eosinophils % 5.4 % (0-4.5) H 10/27/16 10:20 Basophils % 0.6 % (0-2.0) 10/27/16 10:20 Sodium 141 mmol/L (136-145) 10/27/16 10:20 Potassium 4.1 mmol/L (3.5-5.1) 10/27/16 10:20 Chloride 104 mmol/L (98-107) 10/27/16 10:20 Carbon Dioxide 28 mmol/L (21-32) 10/27/16 10:20 Anion Gap 9 (8-16) 10/27/16 10:20 BUN 23 mg/dL (7-18) H D 10/27/16 10:20 Creatinine 1.9 mg/dL (0.7-1.3) H D 10/27/16 10:20 Creat Clearance w eGFR 37.13 (>60) 10/27/16 10:20 Random Glucose 83 mg/dL (74-106) 10/27/16 10:20 Calcium 8.6 mg/dL (8.5-10.1) 10/27/16 10:20 Total Bilirubin 0.9 mg/dL (0.2-1.0) D 10/27/16 10:20 AST 29 U/L (15-37) D 10/27/16 10:20 ALT 18 U/L (12-78) D 10/27/16 10:20 Alkaline Phosphatase 178 U/L (45-117) H D 10/27/16 10:20 Creatine Kinase 45 IU/L (39-308) 10/27/16 10:20 Troponin I 0.03 ng/ml (0.00-0.05) D 10/27/16 10:20 B-Natriuretic Peptide 8889.31 pg/ml (5-125) H 10/27/16 10:16 Total Protein 7.7 g/dl (6.4-8.2) 10/27/16 10:20 Albumin 2.9 g/dl (3.4-5.0) L 10/27/16 10:20 echo 05/2016: mod LVH. sev decreased lv fn. (global). rv not well seen. 1+ mr, mod tr, small effusion. Echo 10/2015: Moderately decreased LV function (global). Nl RV size/fn. 1+ MR. mild-mod TR. mild ao dilation. Trivial effusion. cath 06/2013: 60-70 rpl1, 80-90 d1, subtotal om1 MIBI 08/2014 (pers): no STs; no ischemia seen; predominantly fixed medium-sized inferior/basal inferolat/apico-inferior defect c/w diaphragm attenuation; EF 46% ecg 10/27/16: afib, vr 63, nl qtc, no st changes, lat twis cxr: chronic findings, no sig chf a/p: 56 yo m with h/o afib with prior ?embolic CVA 05/2014 ([facility]) right visual field cut, repeat cva 08/2016 with left sided weakness, syncope 09/19 with ICH at that time vs other entity on MRI and recurrent syncope 12/2015 (unclear etiology ), Non-ischemic cardiomyopathy dx 07/2013 at [facility], HTN, HPL, Rt carotid stenosis, IDDM, RLE cellulitis s/p debridement, MSSA bacteremia 10/2015, DAMIAN not on home cpap, ckd, sent from [place] for cp. cp: -atypical, resolved, no suggestion of acs -ce's neg x1, ecg with new twis, nonspecific -cont durga, monitor on tele HTN -cont home meds Afib, h/o ischemic cva 05/20, - hemorrhagic CVA 06/19 (Imaging read as ICH or mass lesion): - case discussed with neuro in detail on prior admissions. Contrast enhancing lesion seen 06/19 and the prior heme on MRI were in same location and was thought to be most likely 2/2 post CVA hemorrhagic conversion (i.e. without hi risk for recurrent ICH). Less likely low-grade glioma, which would have very low risk of bleeding if AC resumed--hence the recs at that time were for usual AC considerations for his afib, no special precautions -repeat cva 08/2016 at OSH with residual left sided weakness -cont eliquis -rate controlled, cont dig (will check level) cad: -as above -managed medically so far -continue home statin, bb, imdur, hydralazine -con't to defer ASA as pt with stable CAD in past and also on AC chronic syst chf, NICM: -stable. wt below prior baseline (was 350s on prior dc). no chf symptoms. bnp lower than baseline -was on torsemide 40 qd when admitted here 05/2016, would continue same, monitor cr mild Ao dilation - nl size on most recent echo - Con't bb. Routine outpatient surveillance CKD: - cr near baseline DAMIAN - CPAP qhs elevated wbc: -infectious w/u per pmd/ID
[2016-10-27 12:48] LABS: URINE APPEARANCE CLEAR; URINE BILIRUBIN NEGATIVE (NEGATIVE); URINE BLOOD 1+ (NEGATIVE); URINE COLOR LT. YELLOW; URINE GLUCOSE (UA) NEGATIVE (NEGATIVE); URINE KETONE NEGATIVE (NEGATIVE); URINE UROBILINOGEN 0.2 mg/dL (0.2-1.0)
[2016-10-27 12:52] LABS: URINE LEUK ESTERASE TRACE (NEGATIVE); URINE NITRITE POSITIVE (NEGATIVE); URINE PROTEIN 2+ (NEGATIVE)
[2016-10-27 12:54] LABS: URINE BACTERIA RARE /hpf (NONE SEEN); URINE RBC 1 /hpf (0-3); URINE WBC 56 /hpf (3-5)
[2016-10-27] MEDS ORDERED: CEFTRIAXONE 1 GM in DEXTROSE 5%-WATER - 50 ML IVPB ONE (13:49)
[2016-10-27] MEDS: AMPICILLIN NA/SULBACTAM NA 1.5 GM in SODIUM CHLORIDE 100 ML IVPB SCH ×2 (14:00→21:47)
[2016-10-27] MEDS ORDERED: CEFTRIAXONE 50 ML ONE (14:02)
[2016-10-27] MEDS ORDERED: LACTULOSE 20 GM/30 ML UDC (FOR ORAL USE ONLY) PO PRN (14:24)
--- NOTE | 2016-10-27 14:27 | PN ---
Progress Note (short form) - Note Progress Note: ID Consult dictated Leukocytosis acute on chronic ? source Sacral decubitus ulcer UTI Diarrhea, possible C diff Chest pain syndrome IDDM CVA Await c/s. Stool C diff Empiric unasyn + stat dose vancomycin
[2016-10-27] MEDS ORDERED: VANCOMYCIN 1,000 MG in DEXTROSE 5%-WATER - 250 ML IVPB ONE (14:30)
[2016-10-27] MEDS ORDERED: VANCOMYCIN 1 GRAM (PRE-DOCKED) 250 ML IVPB ONE (14:45)
--- NOTE | 2016-10-27 15:40 | CONS ---
DATE OF CONSULTATION: DATE OF DICTATION: 10/27/2016 The patient is a 56-year-old morbidly obese male with multiple medical comorbidities, evaluated for elevated white blood cell count. He give unreliable history. According to the notes, he was admitted from home with complaints of chest pain. The patient complained of chest pain and shortness of breath for 1 day duration. In addition, he had loose stool. He was evaluated in the emergency room where he was found to have a white blood cell count of 20,000. He was empirically treated with clindamycin and ceftriaxone. The patient denies any chest pain at the present time. No complaints of shortness of breath, cough, sputum production. He denies dysuria or hematuria. He has had loose stool. In addition, he has a sacral decubitus ulcer. Patient apparently had taken an antibiotic for reasons which are not clear at this time in the recent past. He had been a resident at a group home facility; however, reports being recently discharged. The patient was seen by our group 1 year ago, at which time he had cellulitis complicated by methicillin-sensitive Staphylococcus aureus bacteremia and splenic abscesses. He has had a chronically elevated white blood cell count in the teens; however, his white blood cell count is more elevated at this time. He is not on corticosteroids. PAST MEDICAL HISTORY: Positive for morbid obesity, atrial fibrillation, coronary artery disease, congestive heart failure, stroke with left hemiplegia, insulin-dependent diabetes mellitus, chronic kidney disease, cirrhosis, MSSA bacteremia from October 2015. ALLERGIES: CIPROFLOXACIN. He reports facial swelling. MEDICATIONS: Includes Norvasc, Eliquis, Lipitor, Lanoxin, Lexapro, Neurontin, Imdur, lactulose, oxycodone, Protonix, Flomax. SOCIAL HISTORY: He apparently resides at home; however, additional information is not available, had been recently in a nursing facility. Negative tobacco or alcohol use history. REVIEW OF SYSTEMS: Neurologic: Positive for stroke with left hemiplegia. Cardiac: As per HPI. Respiratory: Positive for dyspnea. No cough or sputum production. Gastrointestinal: Positive for diarrhea. Genitourinary: Negative for urinary tract infection. LABORATORY DATA: White count 20.3, 79 neutrophils, 6 lymphocytes, 7 monocytes. Hematocrit 31.9, platelet count 316. BUN 23, creatinine 1.9. Total bilirubin 0.9, alkaline phosphatase 178, AST 29, ALT 18. His BNP is 8889. Urinalysis shows 56 white cells. Cultures are pending. Chest x-ray shows congestion bilaterally. No focal infiltrate. PHYSICAL EXAMINATION: General: He is awake. He has slow mentation. Vital Signs: His temperature is 98.5, blood pressure 152/82, pulse 61 and regular, respirations 17 per minute. HEENT: Sclerae are anicteric. Neck: Supple. Cardiovascular: Heart sounds S1, S2. No murmur. Lungs: Grossly clear. Poor inspiratory effort. Abdomen: Obese, soft. No tenderness elicited. Extremities: Examination of the lower extremities: Patient has evidence of chronic venous stasis dermatitis, lower extremities, with some hyperkeratotic papular lesions on the lower extremities bilaterally. There is a stage III sacral decubitus ulcer with necrotic tissue and surrounding erythema. No purulent drainage or foul odor. Neurologic: Left hemiplegia. IMPRESSION: 1. Leukocytosis, acute on chronic. 2. Sacral decubitus ulcer. 3. Urinary tract infection. 4. Diarrhea, possible Clostridium difficile. 5. Chest pain syndrome. 6. Insulin-dependent diabetes mellitus. 7. Stroke. Patient appears to have a chronically elevated white blood cell count; however, to a larger degree at this time cannot rule out superimposed infection. Possible sources include sacral decubitus ulcer, urinary tract. Cannot rule out Clostridium difficile colitis in light of diarrhea and recent antibiotic usage. Await culture results, obtain stool for Clostridium difficile. Empiric antibiotic coverage of skin and urinary tract pathogens with Unasyn 1.5 g IV piggyback every 6 hours, stat dose vancomycin for additional staphylococcus coverage pending cultures. Local wound care. Surgical evaluation for possible debridement of decubitus. Will follow. Thank you for the kind referral. KATIA RAINEY M.D. [id number]
[2016-10-27 16:01] LABS: TROPONIN I 0.03 ng/ml (0.00-0.05)
[2016-10-27] MEDS: GABAPENTIN 300 MG CAPSULE (FP) PO SCH (23:56)
[2016-10-27] MEDS: DOCUSATE SODIUM 100 MG CAPSULE (FP) PO SCH (23:56)
[2016-10-27] MEDS: APIXABAN 5 MG TABLET PO SCH (23:56)
[2016-10-28] MEDS: oxyCODONE HCL 5 MG TABLET PO PRN ×4 (03:31→20:55)
[2016-10-28] MEDS: ACETAMINOPHEN 325 MG TABLET (FP) PO PRN ×4 (03:32→20:55)
[2016-10-28] MEDS: AMPICILLIN NA/SULBACTAM NA 1.5 GM in SODIUM CHLORIDE 100 ML IVPB SCH ×4 (03:48→20:58)
[2016-10-28 08:07] LABS: MCH 29.4 pg (25.7-33.7); MCHC 32.3 g/dl (32.0-35.9); PLATELET COUNT 314 K/MM3 (134-434); RDW 16.9 % (11.9-15.9); WHITE BLOOD COUNT 19.5 K/mm3 (4.0-10.0)
[2016-10-28 08:41] LABS: ALBUMIN 2.8 g/dl (3.4-5.0); ANION GAP 9 (8-16); BILIRUBIN,TOTAL 0.9 mg/dL (0.2-1.0); CALCIUM 8.3 mg/dL (8.5-10.1); CO2 27 mmol/L (21-32); CREATININE 1.7 mg/dL (0.7-1.3); GLUCOSE,RANDOM 72 mg/dL (74-106); SGOT/AST 22 U/L (15-37); SGPT/ALT 17 U/L (12-78); TOT PROT 7.4 g/dl (6.4-8.2)
[2016-10-28 08:52] LABS: CHOLESTEROL 87 mg/dL (50-200)
[2016-10-28 08:53] LABS: ALK PHOS 170 U/L (45-117); DIGOXIN LEVEL 1.2882 ng/ml (0.8-2.0)
[2016-10-28] MEDS ORDERED: FLU VACCINE QUAD 60 MCG/0.5 ML (MDV 17-18) IM ONE (09:00)
--- NOTE | 2016-10-28 09:47 | EKG ---
Test Reason : Blood Pressure : / mmHG Vent. Rate : 063 BPM Atrial Rate : 070 BPM P-R Int : 000 ms QRS Dur : 096 ms QT Int : 428 ms P-R-T Axes : 000 -07 148 degrees QTc Int : 437 ms ATRIAL FIBRILLATION T WAVE ABNORMALITY, CONSIDER ANTEROLATERAL ISCHEMIA ABNORMAL ECG Confirmed by MD DEMETRIO, JOSE ARMANDO ([id number]) on 10/28/2016 9:47:46 AM Referred By: Confirmed By:JOSE ARMANDO ATKINSON MD
[2016-10-28] MEDS: ISOSORBIDE MONONITRATE 60 MG TAB.SR.24H (FP) PO SCH (09:51)
[2016-10-28] MEDS: APIXABAN 5 MG TABLET PO SCH ×2 (09:51→21:02)
[2016-10-28] MEDS: BACITRACIN 15 GM TUBE TOPICAL OINTMENT TP SCH (09:51)
[2016-10-28] MEDS: TAMSULOSIN HCL 0.4 MG CAP.ER.24H (FP) PO SCH (09:51)
[2016-10-28] MEDS: GABAPENTIN 300 MG CAPSULE (FP) PO SCH ×2 (09:52→21:02)
[2016-10-28] MEDS: ESCITALOPRAM OXALATE 10 MG TABLET (FP) PO SCH (09:52)
[2016-10-28] MEDS: DIGOXIN 0.125 MG TABLET (FP) PO SCH (09:52)
[2016-10-28] MEDS: PANTOPRAZOLE 40 MG TABLET (FP) PO SCH (09:52)
--- NOTE | 2016-10-28 10:24 | PN ---
Progress Note (short form) - Note Progress Note: s: no cp sob palps dizzy o: Vital Signs Period Temp Pulse Resp BP Sys/Perez Pulse Ox Last 24 Hr 97.5 F-98.1 F 61-82 17-19 127-169/76-92 96-98 Constitutional: Yes: No Distress, Obese Eyes: No: Sclera Icterus HENT: No: Nasal Congestion Respiratory: cta bl nl eff Gastrointestinal: Yes: Normal Bowel Sounds. obese No: Distention, Hepatomegaly, Palpable Mass, tenderness Cardiovascular: Yes: Irregular Rate and Rhythm JVD: tds Heart Sounds: Yes: nl, S1, S2. No: Gallop Murmur: No: Systolic Murmur, Diastolic Murmur Edema: no le edema bl Integumentary: No: Jaundice diaphoresis Neurological: Yes: Alert, Oriented (x3) Psychiatric: No: Agitated Current Medications Generic Name Dose Route Start Last Admin Trade Name Freq PRN Reason Stop Dose Admin Acetaminophen 650 mg 10/27/16 14:24 10/28/16 09:53 Tylenol - PO 650 mg Q6H PRN Administration FEVER OR PAIN Apixaban 5 mg 10/27/16 22:00 10/28/16 09:51 Eliquis - PO 5 mg BID ANURADHA Administration Bacitracin 1 applic 10/28/16 10:00 10/28/16 09:51 Bacitracin - TP 1 applic DAILY ANURADHA Administration Digoxin 0.125 mg 10/28/16 10:00 10/28/16 09:52 Lanoxin - PO 0.125 mg DAILY ANURADHA Administration Docusate Sodium 300 mg 10/27/16 22:00 10/27/16 23:56 Colace - PO Not Given HS ANURADHA Escitalopram Oxalate 10 mg 10/28/16 10:00 10/28/16 09:52 Lexapro - PO 10 mg DAILY ANURADHA Administration Gabapentin 300 mg 10/27/16 22:00 10/28/16 09:52 Neurontin - PO 300 mg BID ANURADHA Administration Ampicillin Sodium/Sulbactam 100 mls @ 200 mls/hr 10/27/16 15:00 10/28/16 03:48 Sodium 1.5 gm/ Sodium Chloride IVPB 200 mls/hr Q6H-IV ANURADHA Administration Isosorbide Mononitrate 60 mg 10/28/16 10:00 10/28/16 09:51 Imdur - PO 60 mg DAILY ANURADHA Administration Lactulose 20 gm 10/27/16 14:24 Cephulac (Oral Use) PO TID PRN CONSTIPATION Oxycodone HCl 5 mg 10/27/16 14:24 10/28/16 09:52 Roxicodone - PO 5 mg Q6H PRN Administration PAIN Pantoprazole Sodium 40 mg 10/28/16 10:00 10/28/16 09:52 Protonix - PO 40 mg DAILY ANURADHA Administration Tamsulosin HCl 0.4 mg 10/28/16 08:30 10/28/16 09:51 Flomax - PO 0.4 mg DAILY@0830 ANURADHA Administration CBC, BMP 10/28/16 06:00 10/28/16 06:00 echo 05/2016: mod LVH. sev decreased lv fn. (global). rv not well seen. 1+ mr, mod tr, small effusion. Echo 10/2015: Moderately decreased LV function (global). Nl RV size/fn. 1+ MR. mild-mod TR. mild ao dilation. Trivial effusion. cath 06/2013: 60-70 rpl1, 80-90 d1, subtotal om1 MIBI 08/2014 (pers): no STs; no ischemia seen; predominantly fixed medium-sized inferior/basal inferolat/apico-inferior defect c/w diaphragm attenuation; EF 46% ecg 10/27/16: afib, vr 63, nl qtc, no st changes, lat twis cxr: chronic findings, no sig chf tele: afib,rate controlled a/p: 56 yo m with h/o afib with prior ?embolic CVA 05/2014 ([facility]) right visual field cut, repeat cva 08/2016 with left sided weakness, syncope 09/19 with ICH at that time vs other entity on MRI and recurrent syncope 12/2015 (unclear etiology ), Non-ischemic cardiomyopathy dx 07/2013 at [facility], HTN, HPL, Rt carotid stenosis, IDDM, RLE cellulitis s/p debridement, MSSA bacteremia 10/2015, DAMIAN not on home cpap, ckd, sent from [place] for cp. cp: -atypical, resolved, no suggestion of acs -ce's neg x2, ecg with new twis, nonspecific HTN -cont home meds Afib, h/o ischemic cva 05/20, - hemorrhagic CVA 06/19 (Imaging read as ICH or mass lesion): - case discussed with neuro in detail on prior admissions. Contrast enhancing lesion seen 06/19 and the prior heme on MRI were in same location and was thought to be most likely 2/2 post CVA hemorrhagic conversion (i.e. without hi risk for recurrent ICH). Less likely low-grade glioma, which would have very low risk of bleeding if AC resumed--hence the recs at that time were for usual AC considerations for his afib, no special precautions -repeat cva 08/2016 at OSH with residual left sided weakness -cont eliquis -rate controlled, cont dig (will check level) cad: -as above -managed medically so far -continue home statin, bb, imdur, hydralazine -con't to defer ASA as pt with stable CAD in past and also on AC chronic syst chf, NICM: -stable. wt below prior baseline (was 350s on prior dc). no chf symptoms. bnp lower than baseline -was on torsemide 40 qd when admitted here 05/2016, but per pt has not been getting past few months at [facility]. Can monitor vol status off diuretic for now. mild Ao dilation - nl size on most recent echo - Con't bb. Routine outpatient surveillance CKD: - cr near baseline DAMIAN - CPAP qhs elevated wbc: -infectious w/u per pmd/ID
--- NOTE | 2016-10-28 10:44 | HP ---
Admitting History and Physical - Admission History of Present Illness: 56 yo m with h/o afib with prior ?embolic CVA 05/2014 ([facility]) right visual field cut, repeat cva 08/2016 with left sided weakness, syncope 09/19 with ICH at that time vs other entity on MRI and recurrent syncope 12/2015 (unclear etiology), Non-ischemic cardiomyopathy dx 07/2013 at [facility], HTN, HPL, Rt carotid stenosis, IDDM, RLE cellulitis s/p debridement, MSSA bacteremia 10/2015, DAMIAN not on home cpap, ckd, sent from [place] for cp. After recent cva 08/2016 pt reports he has been in and out of hospitals and at [facility]/rehab. Yesterday at rehab was at rest and felt central chest pressure, mild, non radiating, lasted 1 hour, resolved on own. No associated sxs. No recurrence, feeling no cp now. No sob , palps, dizzy, loc, pnd, orthopnea, le edema. C/O LEFT SIDED EXTREMITY PAIN--CHRONIC ON OXYCODONE - Past Medical History MANAGER OF COMPENSATION: Yes: CVA (On 06/02/14 while in [facility]; right visual field cut), Other (hemorrhagic post. circualtion cerebral infarction while on anticoagulation therapy.) Cardiovascular: Yes: AFIB (Last dose Xarelto about two weeks ago; on heparin drip thru 06/11/14), CHF (Systolic), HTN, Hyperlipdemia, Other (Non-ischemic cardiomyopathy diagnosed 07/19 at [facility]) Pulmonary: Yes: Sleep Apnea (Not on home CPAP) Renal/: Yes: Renal Failure, Renal Inusuff, Other (Frequent urination) Infectious Disease: Yes: Other (right foot abcess) Endocrine: Yes: Diabetes Mellitus - Past Surgical History Past Surgical History: Yes: None - Smoking History Smoking history: Never smoked Have you smoked in the past 12 months: No - Alcohol/Substance Use Hx Alcohol Use: No History of Substance Use: reports: None - Social History ADL: Independent Home Medications - Allergies Allergies/Adverse Reactions: Allergies Allergy/AdvReac Type Severity Reaction Status Date / Time ciprofloxacin [From Cipro] Allergy Severe Rash Verified 05/16/16 03:42 ciprofloxacin HCl Allergy Severe Rash Verified 05/16/16 03:42 [From Cipro] - Home Medications Home Medications: Ambulatory Orders Amlodipine Besylate [Norvasc -] 10 mg PO DAILY 10/27/16 Apixaban [Eliquis -] 5 mg PO BID 10/27/16 Atorvastatin Ca [Lipitor] 80 mg PO HS 10/27/16 Bacitracin - [Bacitracin Topical Ointment -] 1 applic TP BID PRN 10/27/16 Digoxin [Lanoxin -] 125 mcg PO Q2D 10/27/16 Escitalopram Oxalate [Lexapro -] 10 mg PO DAILY 10/27/16 Gabapentin [Neurontin] 300 mg PO BID 10/27/16 Isosorbide Mononitrate [Imdur] 60 mg PO BID 10/27/16 Lactulose 10 gm PO DAILY 10/27/16 Oxycodone HCl/Acetaminophen [Percocet 5-325 mg Tablet] 1 tab PO Q6H PRN Pantoprazole Sodium [Protonix] 40 mg PO DAILY 10/27/16 Tamsulosin HCl [Flomax] 0.4 mg PO DAILY 10/27/16 Family Disease History - Family Disease History Family Disease History: Heart Disease: Mother ([place] 60's) Review of Systems - Review of Systems Cardiovascular: reports: Chest Pain (LASING ONE HOUR--RESOLVED) Respiratory: denies: SOB Gastrointestinal: denies: Abdominal Pain Genitourinary: reports: No Symptoms Musculoskeletal: reports: Extremity Pain Neurological: reports: Pre-Existing Deficit Physical Examination Vital Signs: Vital Signs Temperature 98.1 F 10/28/16 02:00 Pulse Rate 80 10/28/16 09:52 Respiratory Rate 18 10/28/16 06:00 Blood Pressure 169/76 10/28/16 06:00 O2 Sat by Pulse Oximetry (%) 96 10/27/16 22:00 Cardiovascular: Yes: S1, S2 Respiratory: Yes: Regular, CTA Bilaterally Gastrointestinal: Yes: Normal Bowel Sounds, Soft. No: Tenderness Musculoskeletal: Yes: Joint Stiffness, Muscle Pain, Muscle Weakness Edema: No Neurological: Yes: Pre-Existing Deficit Labs: CBC, BMP 10/28/16 06:00 10/28/16 06:00 Imaging - Results X-ray: Report Reviewed Problem List - Problems (1) Chest pain Assessment/Plan: NO RECURRENCE Troponin, BNP 10/27/16 10/27/16 10/27/16 10:16 10:20 15:35 Troponin I 0.03 D 0.03 B-Natriuretic Peptide 8889.31 H MONITOR CE CONTINUE WITH MEDS Code(s): R07.9 - CHEST PAIN, UNSPECIFIED Qualifiers: Chest pain type: unspecified Qualified Code(s): R07.9 - Chest pain, unspecified (2) Acute exacerbation of CHF (congestive heart failure) Assessment/Plan: LASIX CT OF CHEST ECHO Code(s): I50.9 - HEART FAILURE, UNSPECIFIED (3) History of CVA with residual deficit Assessment/Plan: PT Code(s): I69.30 - UNSPECIFIED SEQUELAE OF CEREBRAL INFARCTION (4) atrial fibrillation Assessment/Plan: ON ELIQUIS RATE CONTROLLED (5) Acute on chronic renal failure Assessment/Plan: MONITOR RENAL FUNCTION Code(s): N17.9 - ACUTE KIDNEY FAILURE, UNSPECIFIED N18.9 - CHRONIC KIDNEY DISEASE, UNSPECIFIED (6) CAD (coronary artery disease) Assessment/Plan: FOLLOW CE EKG Code(s): I25.10 - ATHSCL HEART DISEASE OF [place] CORONARY ARTERY W/O ANG PCTRS (7) Leukocytosis Assessment/Plan: IV ABX PER ID FOLLOW CULTURES Code(s): D72.829 - ELEVATED WHITE BLOOD CELL COUNT, UNSPECIFIED (8) Diarrhea Assessment/Plan: C DIF PENDING Code(s): R19.7 - DIARRHEA, UNSPECIFIED (9) Decubitus ulcer Assessment/Plan: WOUND CARE ON ABX Code(s): L89.90 - PRESSURE ULCER OF UNSPECIFIED SITE, UNSPECIFIED STAGE
[2016-10-28] MEDS ORDERED: PT OWN MED DRAWER 7, Y5N ONE ×2 (15:14→20:51)
--- NOTE | 2016-10-28 15:17 | PN ---
Progress Note, Physician History of Present Illness: More awake and alert Offers no complaints Afebrile WBC remains elevated Cultures pending - Current Medication List Current Medications: Active Medications Acetaminophen (Tylenol -) 650 mg PO Q6H PRN PRN Reason: FEVER OR PAIN Last Admin: 10/28/16 09:53 Dose: 650 mg Apixaban (Eliquis -) 5 mg PO BID [facility] Last Admin: 10/28/16 09:51 Dose: 5 mg Bacitracin (Bacitracin -) 1 applic TP DAILY [facility] Last Admin: 10/28/16 09:51 Dose: 1 applic Digoxin (Lanoxin -) 0.125 mg PO DAILY [facility] Last Admin: 10/28/16 09:52 Dose: 0.125 mg Docusate Sodium (Colace -) 300 mg PO HS [facility] Last Admin: 10/27/16 23:56 Dose: Not Given Escitalopram Oxalate (Lexapro -) 10 mg PO DAILY [facility] Last Admin: 10/28/16 09:52 Dose: 10 mg Gabapentin (Neurontin -) 300 mg PO BID [facility] Last Admin: 10/28/16 09:52 Dose: 300 mg Ampicillin Sodium/Sulbactam (Sodium 1.5 gm/ Sodium Chloride) 100 mls @ 200 mls/ hr IVPB Q6H-IV [facility] Last Admin: 10/28/16 10:45 Dose: 200 mls/hr Isosorbide Mononitrate (Imdur -) 60 mg PO DAILY [facility] Last Admin: 10/28/16 09:51 Dose: 60 mg Lactulose (Cephulac (Oral Use)) 20 gm PO TID PRN PRN Reason: CONSTIPATION Oxycodone HCl (Roxicodone -) 5 mg PO Q6H PRN PRN Reason: PAIN Last Admin: 10/28/16 09:52 Dose: 5 mg Pantoprazole Sodium (Protonix -) 40 mg PO DAILY [facility] Last Admin: 10/28/16 09:52 Dose: 40 mg Tamsulosin HCl (Flomax -) 0.4 mg PO DAILY@0830 [facility] Last Admin: 10/28/16 09:51 Dose: 0.4 mg - Objective Vital Signs: Vital Signs Temperature 98.2 F 10/28/16 14:00 Pulse Rate 80 10/28/16 14:00 Respiratory Rate 20 10/28/16 14:00 Blood Pressure 153/81 10/28/16 14:00 O2 Sat by Pulse Oximetry (%) 96 10/28/16 10:00 Constitutional: Yes: No Distress, Obese Eyes: Yes: Conjunctiva Clear Cardiovascular: Yes: Regular Rate and Rhythm, S1, S2 Respiratory: Yes: CTA Bilaterally Gastrointestinal: Yes: Normal Bowel Sounds, Soft Edema: Yes Integumentary: Yes: Other (scaral decubitus ulcer) Labs: CBC, BMP 10/28/16 06:00 10/28/16 06:00 Assessment/Plan Leukocytosis Possible sepsis decubitus v. source Chest pain syndrome IDDM S/P CVA Await c/s Continue empiric Unasyn
[2016-10-28] MEDS: DOCUSATE SODIUM 100 MG CAPSULE (FP) PO SCH (21:03)
[2016-10-29] MEDS ORDERED: PT OWN MED DRAWER 7, Y5N ONE ×4 (02:46→15:55)
[2016-10-29] MEDS: oxyCODONE HCL 5 MG TABLET PO PRN ×3 (02:54→20:18)
[2016-10-29] MEDS: ACETAMINOPHEN 325 MG TABLET (FP) PO PRN ×2 (02:55→20:20)
[2016-10-29] MEDS: AMPICILLIN NA/SULBACTAM NA 1.5 GM in SODIUM CHLORIDE 100 ML IVPB SCH ×3 (02:58→14:01)
[2016-10-29 07:26] LABS: BASOPHIL 0.7 % (0-2.0); EOSINOPHIL 6.1 % (0-4.5); MCH 30.1 pg (25.7-33.7); MCHC 32.9 g/dl (32.0-35.9); MEAN CELL VOLUME 91.3 fl (80-96); MEAN PLT VOLUME 6.8 fl (7.5-11.1); NEUTROPHILS 78.4 % (42.8-82.8); PLATELET COUNT 327 K/MM3 (134-434); WHITE BLOOD COUNT 16.8 K/mm3 (4.0-10.0)
[2016-10-29] MEDS: TAMSULOSIN HCL 0.4 MG CAP.ER.24H (FP) PO SCH (08:06)
[2016-10-29 08:12] LABS: ALBUMIN 2.6 g/dl (3.4-5.0); ALK PHOS 167 U/L (45-117); ANION GAP 8 (8-16); BILIRUBIN,TOTAL 0.9 mg/dL (0.2-1.0); CALCIUM 8.4 mg/dL (8.5-10.1); CO2 26 mmol/L (21-32); CREATININE 1.6 mg/dL (0.7-1.3); GLUCOSE,RANDOM 85 mg/dL (74-106); SGOT/AST 22 U/L (15-37); SGPT/ALT 14 U/L (12-78); THYROID STIMULATING HORMONE 4.17 uIU/ml (0.358-3.74); TOT PROT 7.3 g/dl (6.4-8.2)
[2016-10-29] MEDS: ESCITALOPRAM OXALATE 10 MG TABLET (FP) PO SCH (09:34)
[2016-10-29] MEDS: PANTOPRAZOLE 40 MG TABLET (FP) PO SCH (09:34)
[2016-10-29] MEDS: GABAPENTIN 300 MG CAPSULE (FP) PO SCH ×2 (09:34→21:47)
[2016-10-29] MEDS: APIXABAN 5 MG TABLET PO SCH ×2 (09:35→21:46)
[2016-10-29] MEDS: ISOSORBIDE MONONITRATE 60 MG TAB.SR.24H (FP) PO SCH (09:35)
[2016-10-29] MEDS: DIGOXIN 0.125 MG TABLET (FP) PO SCH (09:35)
[2016-10-29] MEDS: BACITRACIN 15 GM TUBE TOPICAL OINTMENT TP SCH (10:42)
--- NOTE | 2016-10-29 11:03 | PN ---
Progress Note, Physician History of Present Illness: FEELS BETTER NO CP - Current Medication List Current Medications: Active Medications Acetaminophen (Tylenol -) 650 mg PO Q6H PRN PRN Reason: FEVER OR PAIN Last Admin: 10/29/16 02:55 Dose: 650 mg Apixaban (Eliquis -) 5 mg PO BID [facility] Last Admin: 10/29/16 09:35 Dose: 5 mg Bacitracin (Bacitracin -) 1 applic TP DAILY [facility] Last Admin: 10/29/16 10:42 Dose: 1 applic Digoxin (Lanoxin -) 0.125 mg PO DAILY [facility] Last Admin: 10/29/16 09:35 Dose: 0.125 mg Docusate Sodium (Colace -) 300 mg PO HS [facility] Last Admin: 10/28/16 21:03 Dose: Not Given Escitalopram Oxalate (Lexapro -) 10 mg PO DAILY [facility] Last Admin: 10/29/16 09:34 Dose: 10 mg Gabapentin (Neurontin -) 300 mg PO BID [facility] Last Admin: 10/29/16 09:34 Dose: 300 mg Ampicillin Sodium/Sulbactam (Sodium 1.5 gm/ Sodium Chloride) 100 mls @ 200 mls/ hr IVPB Q6H-IV [facility] Last Admin: 10/29/16 08:06 Dose: 200 mls/hr Isosorbide Mononitrate (Imdur -) 60 mg PO DAILY [facility] Last Admin: 10/29/16 09:35 Dose: 60 mg Lactulose (Cephulac (Oral Use)) 20 gm PO TID PRN PRN Reason: CONSTIPATION Last Admin: 10/29/16 06:28 Dose: 20 gm Oxycodone HCl (Roxicodone -) 5 mg PO Q6H PRN PRN Reason: PAIN Last Admin: 10/29/16 02:54 Dose: 5 mg Pantoprazole Sodium (Protonix -) 40 mg PO DAILY [facility] Last Admin: 10/29/16 09:34 Dose: 40 mg Tamsulosin HCl (Flomax -) 0.4 mg PO DAILY@0830 [facility] Last Admin: 10/29/16 08:06 Dose: 0.4 mg - Objective Vital Signs: Vital Signs Temperature 98.2 F 10/29/16 02:00 Pulse Rate 78 10/29/16 09:35 Respiratory Rate 20 10/29/16 02:00 Blood Pressure 161/90 10/29/16 02:00 O2 Sat by Pulse Oximetry (%) 95 10/28/16 21:00 Cardiovascular: Yes: S1, S2 Respiratory: Yes: Regular, CTA Bilaterally Gastrointestinal: Yes: Normal Bowel Sounds, Soft Labs: CBC, BMP 10/29/16 06:00 10/29/16 06:00 Problem List - Problems (1) Chest pain Assessment/Plan: NO RECURRENCE MONITOR CE CONTINUE WITH MEDS Code(s): R07.9 - CHEST PAIN, UNSPECIFIED Qualifiers: Chest pain type: unspecified Qualified Code(s): R07.9 - Chest pain, unspecified (2) Acute exacerbation of CHF (congestive heart failure) Assessment/Plan: LASIX CT OF CHEST ECHO Code(s): I50.9 - HEART FAILURE, UNSPECIFIED (3) History of CVA with residual deficit Assessment/Plan: PT Code(s): I69.30 - UNSPECIFIED SEQUELAE OF CEREBRAL INFARCTION (4) atrial fibrillation Assessment/Plan: ON ELIQUIS RATE CONTROLLED (5) Acute on chronic renal failure Assessment/Plan: MONITOR RENAL FUNCTION Code(s): N17.9 - ACUTE KIDNEY FAILURE, UNSPECIFIED N18.9 - CHRONIC KIDNEY DISEASE, UNSPECIFIED (6) CAD (coronary artery disease) Assessment/Plan: FOLLOW CE EKG Code(s): I25.10 - ATHSCL HEART DISEASE OF [place] CORONARY ARTERY W/O ANG PCTRS (7) Leukocytosis Assessment/Plan: IV ABX PER ID FOLLOW CULTURES Laboratory Tests 10/27/16 10/28/16 10/29/16 10:20 06:00 06:00 WBC 20.3 H D 19.5 H 16.8 H Microbiology 10/28/16 14:00 Urine Culture - Preliminary Urine - Urine Clean Catch 10/27/16 17:00 Blood Culture - Preliminary Blood - Peripheral Venous NO GROWTH OBTAINED AFTER 24 HOURS, INCUBATION TO CONTINUE FOR 4 DAYS. 10/27/16 17:00 Blood Culture - Preliminary Blood - Peripheral Venous NO GROWTH OBTAINED AFTER 24 HOURS, INCUBATION TO CONTINUE FOR 4 DAYS. Code(s): D72.829 - ELEVATED WHITE BLOOD CELL COUNT, UNSPECIFIED (8) Diarrhea Assessment/Plan: C DIF PENDING Code(s): R19.7 - DIARRHEA, UNSPECIFIED (9) Decubitus ulcer Assessment/Plan: WOUND CARE ON ABX Code(s): L89.90 - PRESSURE ULCER OF UNSPECIFIED SITE, UNSPECIFIED STAGE
[2016-10-29 12:05] LABS: TROPONIN I 0.03 ng/ml (0.00-0.05)
--- NOTE | 2016-10-29 15:27 | PN ---
Progress Note, Physician History of Present Illness: Much more awake and alert Reports abdominl crmps, diarrhea No c/o fever/ chills Afebrile WBC improving BC (-) C diff ag(+) - Current Medication List Current Medications: Active Medications Acetaminophen (Tylenol -) 650 mg PO Q6H PRN PRN Reason: FEVER OR PAIN Last Admin: 10/29/16 02:55 Dose: 650 mg Apixaban (Eliquis -) 5 mg PO BID [facility] Last Admin: 10/29/16 09:35 Dose: 5 mg Bacitracin (Bacitracin -) 1 applic TP DAILY [facility] Last Admin: 10/29/16 10:42 Dose: 1 applic Digoxin (Lanoxin -) 0.125 mg PO DAILY [facility] Last Admin: 10/29/16 09:35 Dose: 0.125 mg Docusate Sodium (Colace -) 300 mg PO HS [facility] Last Admin: 10/28/16 21:03 Dose: Not Given Escitalopram Oxalate (Lexapro -) 10 mg PO DAILY [facility] Last Admin: 10/29/16 09:34 Dose: 10 mg Gabapentin (Neurontin -) 300 mg PO BID [facility] Last Admin: 10/29/16 09:34 Dose: 300 mg Ampicillin Sodium/Sulbactam (Sodium 1.5 gm/ Sodium Chloride) 100 mls @ 200 mls/ hr IVPB Q6H-IV [facility] Last Admin: 10/29/16 14:01 Dose: 200 mls/hr Isosorbide Mononitrate (Imdur -) 60 mg PO DAILY [facility] Last Admin: 10/29/16 09:35 Dose: 60 mg Lactulose (Cephulac (Oral Use)) 20 gm PO TID PRN PRN Reason: CONSTIPATION Last Admin: 10/29/16 06:28 Dose: 20 gm Oxycodone HCl (Roxicodone -) 5 mg PO Q6H PRN PRN Reason: PAIN Last Admin: 10/29/16 14:08 Dose: 5 mg Pantoprazole Sodium (Protonix -) 40 mg PO DAILY [facility] Last Admin: 10/29/16 09:34 Dose: 40 mg Tamsulosin HCl (Flomax -) 0.4 mg PO DAILY@0830 [facility] Last Admin: 10/29/16 08:06 Dose: 0.4 mg - Objective Vital Signs: Vital Signs Temperature 97.5 F L 10/29/16 14:00 Pulse Rate 66 10/29/16 14:00 Respiratory Rate 20 10/29/16 14:00 Blood Pressure 165/81 10/29/16 14:00 O2 Sat by Pulse Oximetry (%) 96 10/29/16 09:00 Constitutional: Yes: No Distress, Obese Cardiovascular: Yes: Regular Rate and Rhythm, S1, S2 Respiratory: Yes: Diminished Gastrointestinal: Yes: Normal Bowel Sounds, Soft, Tenderness, Other (mild diffuse tenderness) Edema: Yes Integumentary: Yes: Other (sacral decubitus ulcer) Labs: CBC, BMP 10/29/16 06:00 10/29/16 06:00 Assessment/Plan Leukocytosis + C difficile Chest pain syndrome IDDM S/P CVA D/C unasyn Flagyl po
[2016-10-29] MEDS: metroNIDAZOLE 250 MG TABLET PO SCH ×2 (17:57→21:46)
--- NOTE | 2016-10-29 20:35 | PN ---
Progress Note (short form) - Note Progress Note: s: no cp sob palps dizzy o: Vital Signs Period Temp Pulse Resp BP Sys/Perez Pulse Ox Last 24 Hr 97.5 F-98.2 F 66-78 18-20 152-168/73-90 95-96 Constitutional: Yes: No Distress, Obese Eyes: No: Sclera Icterus HENT: No: Nasal Congestion Respiratory: cta bl nl eff Gastrointestinal: Yes: Normal Bowel Sounds. obese No: Distention, Hepatomegaly, Palpable Mass, tenderness Cardiovascular: Yes: Irregular Rate and Rhythm JVD: tds Heart Sounds: Yes: nl, S1, S2. No: Gallop Murmur: No: Systolic Murmur, Diastolic Murmur Edema: no le edema bl Integumentary: No: Jaundice diaphoresis Neurological: Yes: Alert, Oriented (x3) Psychiatric: No: Agitated Current Medications Generic Name Dose Route Start Last Admin Trade Name Freq PRN Reason Stop Dose Admin Acetaminophen 650 mg 10/27/16 14:24 10/29/16 20:20 Tylenol - PO 650 mg Q6H PRN Administration FEVER OR PAIN Apixaban 5 mg 10/27/16 22:00 10/29/16 09:35 Eliquis - PO 5 mg BID [facility] Administration Bacitracin 1 applic 10/28/16 10:00 10/29/16 10:42 Bacitracin - TP 1 applic DAILY [facility] Administration Digoxin 0.125 mg 10/28/16 10:00 10/29/16 09:35 Lanoxin - PO 0.125 mg DAILY [facility] Administration Docusate Sodium 300 mg 10/27/16 22:00 10/28/16 21:03 Colace - PO Not Given HS [facility] Escitalopram Oxalate 10 mg 10/28/16 10:00 10/29/16 09:34 Lexapro - PO 10 mg DAILY [facility] Administration Gabapentin 300 mg 10/27/16 22:00 10/29/16 09:34 Neurontin - PO 300 mg BID [facility] Administration Isosorbide Mononitrate 60 mg 10/28/16 10:00 10/29/16 09:35 Imdur - PO 60 mg DAILY [facility] Administration Lactulose 20 gm 10/27/16 14:24 10/29/16 06:28 Cephulac (Oral Use) PO 20 gm TID PRN Administration CONSTIPATION Metronidazole 500 mg 10/29/16 15:30 10/29/16 17:57 Flagyl - PO 500 mg TID [facility] Administration Oxycodone HCl 5 mg 10/27/16 14:24 10/29/16 20:18 Roxicodone - PO 5 mg Q6H PRN Administration PAIN Pantoprazole Sodium 40 mg 10/28/16 10:00 10/29/16 09:34 Protonix - PO 40 mg DAILY [facility] Administration Tamsulosin HCl 0.4 mg 10/28/16 08:30 10/29/16 08:06 Flomax - PO 0.4 mg DAILY@0830 [facility] Administration CBC, BMP 10/29/16 06:00 10/29/16 06:00 echo 05/2016: mod LVH. sev decreased lv fn. (global). rv not well seen. 1+ mr, mod tr, small effusion. Echo 10/2015: Moderately decreased LV function (global). Nl RV size/fn. 1+ MR. mild-mod TR. mild ao dilation. Trivial effusion. cath 06/2013: 60-70 rpl1, 80-90 d1, subtotal om1 MIBI 08/2014 (pers): no STs; no ischemia seen; predominantly fixed medium-sized inferior/basal inferolat/apico-inferior defect c/w diaphragm attenuation; EF 46% ecg 10/27/16: afib, vr 63, nl qtc, no st changes, lat twis cxr: chronic findings, no sig chf tele: afib,rate controlled a/p: 56 yo m with h/o afib with prior ?embolic CVA 05/2014 ([facility]) right visual field cut, repeat cva 08/2016 with left sided weakness, syncope 09/19 with ICH at that time vs other entity on MRI and recurrent syncope 12/2015 (unclear etiology ), Non-ischemic cardiomyopathy dx 07/2013 at [place], HTN, HPL, Rt carotid stenosis, IDDM, RLE cellulitis s/p debridement, MSSA bacteremia 10/2015, DAMIAN not on home cpap, ckd, sent from [place] for cp. cp: -atypical, resolved, no suggestion of acs -ce's neg x2, ecg with new twis, nonspecific HTN -cont home meds Afib, h/o ischemic cva 05/20, - hemorrhagic CVA 06/19 (Imaging read as ICH or mass lesion): - case discussed with neuro in detail on prior admissions. Contrast enhancing lesion seen 06/19 and the prior heme on MRI were in same location and was thought to be most likely 2/2 post CVA hemorrhagic conversion (i.e. without hi risk for recurrent ICH). Less likely low-grade glioma, which would have very low risk of bleeding if AC resumed--hence the recs at that time were for usual AC considerations for his afib, no special precautions -repeat cva 08/2016 at [facility] with residual left sided weakness -cont eliquis -rate controlled, cont dig cad: -as above -managed medically so far -continue home statin, bb, imdur, hydralazine -con't to defer ASA as pt with stable CAD in past and also on AC chronic syst chf, NICM: -stable. wt below prior baseline (was 350s on prior dc). no chf symptoms. bnp lower than baseline -was on torsemide 40 qd when admitted here 05/2016, but per pt has not been getting past few months at [place]. Can monitor vol status off diuretic for now. mild Ao dilation - nl size on most recent echo - Con't bb. Routine outpatient surveillance CKD: - cr near baseline DAMIAN - CPAP qhs elevated wbc: -infectious w/u per pmd/ID can dc tele
[2016-10-29] MEDS: DOCUSATE SODIUM 100 MG CAPSULE (FP) PO SCH ×2 (21:38→22:03)
[2016-10-30] MEDS: oxyCODONE HCL 5 MG TABLET PO PRN ×4 (04:03→20:01)
[2016-10-30] MEDS: metroNIDAZOLE 250 MG TABLET PO SCH ×2 (06:00→14:47)
[2016-10-30] MEDS ORDERED: LACTULOSE 20 GM/30 ML UDC (FOR ORAL USE ONLY) PO PRN (07:44)
[2016-10-30 07:51] LABS: BASOPHIL 0.7 % (0-2.0); EOSINOPHIL 5.2 % (0-4.5); MCH 30.1 pg (25.7-33.7); MCHC 33.1 g/dl (32.0-35.9); MEAN PLT VOLUME 7.1 fl (7.5-11.1); PLATELET COUNT 322 K/MM3 (134-434); RDW 16.9 % (11.9-15.9); WHITE BLOOD COUNT 18.1 K/mm3 (4.0-10.0)
[2016-10-30 09:00] LABS: ALBUMIN 2.6 g/dl (3.4-5.0); ALK PHOS 163 U/L (45-117); ANION GAP 11 (8-16); CALCIUM 8.7 mg/dL (8.5-10.1); CO2 24 mmol/L (21-32); CREATININE 1.6 mg/dL (0.7-1.3); GLUCOSE,RANDOM 81 mg/dL (74-106); SGOT/AST 21 U/L (15-37); SGPT/ALT 13 U/L (12-78); TOT PROT 7.1 g/dl (6.4-8.2)
[2016-10-30] MEDS ORDERED: PT OWN MED DRAWER 7, Y5N ONE ×2 (09:17→23:18)
[2016-10-30] MEDS: TAMSULOSIN HCL 0.4 MG CAP.ER.24H (FP) PO SCH (09:27)
[2016-10-30] MEDS: ISOSORBIDE MONONITRATE 60 MG TAB.SR.24H (FP) PO SCH (09:27)
[2016-10-30] MEDS: PANTOPRAZOLE 40 MG TABLET (FP) PO SCH (09:27)
[2016-10-30] MEDS: ESCITALOPRAM OXALATE 10 MG TABLET (FP) PO SCH (09:27)
[2016-10-30] MEDS: DIGOXIN 0.125 MG TABLET (FP) PO SCH (09:27)
[2016-10-30] MEDS: APIXABAN 5 MG TABLET PO SCH ×2 (09:28→21:31)
[2016-10-30] MEDS: GABAPENTIN 300 MG CAPSULE (FP) PO SCH ×2 (09:28→21:31)
[2016-10-30] MEDS: BACITRACIN 15 GM TUBE TOPICAL OINTMENT TP SCH (09:47)
[2016-10-30] MEDS: ACETAMINOPHEN 325 MG TABLET (FP) PO PRN ×2 (14:48→20:02)
--- NOTE | 2016-10-30 15:53 | PN ---
Progress Note, Physician History of Present Illness: C/O abdominal discomfort, loose BMS Afebrile WBC remains elevated - Current Medication List Current Medications: Active Medications Acetaminophen (Tylenol -) 650 mg PO Q6H PRN PRN Reason: FEVER OR PAIN Last Admin: 10/30/16 14:48 Dose: 650 mg Apixaban (Eliquis -) 5 mg PO BID [facility] Last Admin: 10/30/16 09:28 Dose: 5 mg Bacitracin (Bacitracin -) 1 applic TP DAILY [facility] Last Admin: 10/30/16 09:47 Dose: 1 applic Digoxin (Lanoxin -) 0.125 mg PO DAILY [facility] Last Admin: 10/30/16 09:27 Dose: 0.125 mg Docusate Sodium (Colace -) 300 mg PO [facility] Escitalopram Oxalate (Lexapro -) 10 mg PO DAILY [facility] Last Admin: 10/30/16 09:27 Dose: 10 mg Gabapentin (Neurontin -) 300 mg PO BID [facility] Last Admin: 10/30/16 09:28 Dose: 300 mg Isosorbide Mononitrate (Imdur -) 60 mg PO DAILY [facility] Last Admin: 10/30/16 09:27 Dose: 60 mg Lactulose (Cephulac (Oral Use)) 20 gm PO TID PRN PRN Reason: CONSTIPATION Metronidazole (Flagyl -) 500 mg PO TID [facility] Last Admin: 10/30/16 14:47 Dose: 500 mg Oxycodone HCl (Roxicodone -) 5 mg PO Q6H PRN PRN Reason: PAIN Last Admin: 10/30/16 14:49 Dose: 5 mg Pantoprazole Sodium (Protonix -) 40 mg PO DAILY [facility] Last Admin: 10/30/16 09:27 Dose: 40 mg Tamsulosin HCl (Flomax -) 0.4 mg PO DAILY@0830 [facility] Last Admin: 10/30/16 09:27 Dose: 0.4 mg - Objective Vital Signs: Vital Signs Temperature 97.9 F 10/30/16 06:00 Pulse Rate 70 10/30/16 09:27 Respiratory Rate 20 10/30/16 09:00 Blood Pressure 186/97 10/30/16 06:00 O2 Sat by Pulse Oximetry (%) 96 10/30/16 09:00 Constitutional: Yes: No Distress, Obese Cardiovascular: Yes: Regular Rate and Rhythm, S1, S2 Respiratory: Yes: CTA Bilaterally Gastrointestinal: Yes: Normal Bowel Sounds, Soft. No: Tenderness Edema: Yes Labs: CBC, BMP 10/30/16 06:00 10/30/16 06:00 Assessment/Plan Leukocytosis + C difficile Chest pain syndrome IDDM S/P CVA Substitute po vancomycin Contact precautions
--- NOTE | 2016-10-30 15:56 | PN ---
Progress Note, Physician Chief Complaint: awake, agitated about being in hospital - Current Medication List Current Medications: Active Medications Acetaminophen (Tylenol -) 650 mg PO Q6H PRN PRN Reason: FEVER OR PAIN Last Admin: 10/30/16 14:48 Dose: 650 mg Apixaban (Eliquis -) 5 mg PO BID [facility] Last Admin: 10/30/16 09:28 Dose: 5 mg Bacitracin (Bacitracin -) 1 applic TP DAILY [facility] Last Admin: 10/30/16 09:47 Dose: 1 applic Digoxin (Lanoxin -) 0.125 mg PO DAILY [facility] Last Admin: 10/30/16 09:27 Dose: 0.125 mg Docusate Sodium (Colace -) [address] [facility] Escitalopram Oxalate (Lexapro -) 10 mg PO DAILY [facility] Last Admin: 10/30/16 09:27 Dose: 10 mg Gabapentin (Neurontin -) 300 mg PO BID [facility] Last Admin: 10/30/16 09:28 Dose: 300 mg Isosorbide Mononitrate (Imdur -) 60 mg PO DAILY [facility] Last Admin: 10/30/16 09:27 Dose: 60 mg Lactulose (Cephulac (Oral Use)) 20 gm PO TID PRN PRN Reason: CONSTIPATION Oxycodone HCl (Roxicodone -) 5 mg PO Q6H PRN PRN Reason: PAIN Last Admin: 10/30/16 14:49 Dose: 5 mg Pantoprazole Sodium (Protonix -) 40 mg PO DAILY [facility] Last Admin: 10/30/16 09:27 Dose: 40 mg Tamsulosin HCl (Flomax -) 0.4 mg PO DAILY@0830 [facility] Last Admin: 10/30/16 09:27 Dose: 0.4 mg Vancomycin HCl (Vancomycin Oral Solution) 125 mg PO Q6HPO [facility] - Objective Vital Signs: Vital Signs Temperature 97.9 F 10/30/16 06:00 Pulse Rate 70 10/30/16 09:27 Respiratory Rate 20 10/30/16 09:00 Blood Pressure 186/97 10/30/16 06:00 O2 Sat by Pulse Oximetry (%) 96 10/30/16 09:00 Constitutional: Yes: Mild Distress Eyes: Yes: WNL HENT: Yes: WNL Neck: Yes: WNL Cardiovascular: Yes: Pulse Irregular Respiratory: Yes: WNL Gastrointestinal: Yes: WNL Genitourinary: Yes: WNL Musculoskeletal: Yes: Muscle Weakness Extremities: Yes: WNL Edema: Yes Peripheral Pulses WNL: Yes Integumentary: Yes: Rash, Venous Stasis Changes Wound/Incision: Yes: Dressing Dry and Intact Neurological: Yes: Pre-Existing Deficit, Unsteady Gait, Weakness ...Motor Strength: LLE, RLE Psychiatric: Yes: Other Labs: CBC, BMP 10/30/16 06:00 10/30/16 06:00 Problem List - Problems (1) Acute exacerbation of CHF (congestive heart failure) Code(s): I50.9 - HEART FAILURE, UNSPECIFIED Qualifiers: Congestive heart failure type: systolic Qualified Code(s): I50.23 - Acute on chronic systolic (congestive) heart failure (2) Chest pain Code(s): R07.9 - CHEST PAIN, UNSPECIFIED Qualifiers: Chest pain type: unspecified Qualified Code(s): R07.9 - Chest pain, unspecified (3) Decubitus ulcer Code(s): L89.90 - PRESSURE ULCER OF UNSPECIFIED SITE, UNSPECIFIED STAGE Qualifiers: Pressure ulcer location: sacral region (4) Diarrhea Code(s): R19.7 - DIARRHEA, UNSPECIFIED Qualifiers: Diarrhea type: infectious Qualified Code(s): A09 - Infectious gastroenteritis and colitis, unspecified (5) History of CVA with residual deficit Code(s): I69.30 - UNSPECIFIED SEQUELAE OF CEREBRAL INFARCTION (6) Hyperlipemia Code(s): E78.5 - HYPERLIPIDEMIA, UNSPECIFIED (7) Uncontrolled diabetes mellitus Code(s): E11.65 - TYPE 2 DIABETES MELLITUS WITH HYPERGLYCEMIA (9) Acute on chronic renal failure Code(s): N17.9 - ACUTE KIDNEY FAILURE, UNSPECIFIED N18.9 - CHRONIC KIDNEY DISEASE, UNSPECIFIED (10) Diabetes mellitus Code(s): E11.9 - TYPE 2 DIABETES MELLITUS WITHOUT COMPLICATIONS (11) Leukocytosis Code(s): D72.829 - ELEVATED WHITE BLOOD CELL COUNT, UNSPECIFIED (12) Morbid obesity with BMI of 45.0-49.9, adult Code(s): Z68.42 - BODY MASS INDEX (BMI) 45.0-49.9, ADULT Assessment/Plan CHANGED TO PO VANCOMYCIN TODAY FOR DIARRHEA PT EVAL NEUROLOGY EVAL FOR OLD CVA KEEP BP CONTROLLED AND LIPIDS WITH LDL LESS THAN 70 CARDIOLOGY EVAL APPRECIATED MONITOR CHF SYSTOLIC FAILURE ACUTE ON CHRONIC SACRAL ULCER WITH COLITIS INCREAED LEUKOCYTOSIS ID FOLLOW UP APPRECIATED SNF PLACEMENT TOMORROW VASC EVAL OF SACRAL ULCER STAGE 3
[2016-10-30] MEDS: VANCOMYCIN 250 MG/5 ML ORAL SOLUTION PO SCH ×2 (17:44→23:03)
--- NOTE | 2016-10-30 18:15 | PN ---
Progress Note (short form) - Note Progress Note: s: no cp sob palps dizzy; +diarrhea o: Vital Signs Period Temp Pulse Resp BP Sys/Perez Pulse Ox Last 24 Hr 97.9 F-98.1 F 52-70 17-20 117-186/65-97 96-96 Constitutional: Yes: No Distress, Obese Eyes: No: Sclera Icterus HENT: No: Nasal Congestion Respiratory: cta bl nl eff Gastrointestinal: Yes: Normal Bowel Sounds. obese No: Distention, mild diffuse tenderness Cardiovascular: Yes: Irregular Rate and Rhythm JVD: tds Heart Sounds: Yes: nl, S1, S2. No: Gallop Murmur: No: Systolic Murmur, Diastolic Murmur Edema: no le edema bl Integumentary: No: Jaundice diaphoresis Neurological: Yes: Alert, Oriented (x3) Psychiatric: No: Agitated Current Medications Generic Name Dose Route Start Last Admin Trade Name Freq PRN Reason Stop Dose Admin Acetaminophen 650 mg 10/30/16 07:44 10/30/16 14:48 Tylenol - PO 650 mg Q6H PRN Administration FEVER OR PAIN Amlodipine Besylate 5 mg 10/31/16 10:00 Norvasc - PO DAILY [facility] Apixaban 5 mg 10/30/16 10:00 10/30/16 09:28 Eliquis - PO 5 mg BID [facility] Administration Bacitracin 1 applic 10/30/16 10:00 10/30/16 09:47 Bacitracin - TP 1 applic DAILY [facility] Administration Digoxin 0.125 mg 10/30/16 10:00 10/30/16 09:27 Lanoxin - PO 0.125 mg DAILY [facility] Administration Docusate Sodium 300 mg 10/30/16 22:00 Colace - PO HS [facility] Escitalopram Oxalate 10 mg 10/30/16 10:00 10/30/16 09:27 Lexapro - PO 10 mg DAILY [facility] Administration Gabapentin 300 mg 10/30/16 10:00 10/30/16 09:28 Neurontin - PO 300 mg BID [facility] Administration Isosorbide Mononitrate 60 mg 10/30/16 10:00 10/30/16 09:27 Imdur - PO 60 mg DAILY [facility] Administration Lactulose 20 gm 10/30/16 07:44 Cephulac (Oral Use) PO TID PRN CONSTIPATION Oxycodone HCl 5 mg 10/30/16 07:44 10/30/16 14:49 Roxicodone - PO 5 mg Q6H PRN Administration PAIN Pantoprazole Sodium 40 mg 10/30/16 10:00 10/30/16 09:27 Protonix - PO 40 mg DAILY [facility] Administration Tamsulosin HCl 0.4 mg 10/30/16 08:30 10/30/16 09:27 Flomax - PO 0.4 mg DAILY@0830 [facility] Administration Vancomycin HCl 125 mg 10/30/16 18:00 10/30/16 17:44 Vancomycin Oral Solution PO 125 mg Q6HPO [facility] Administration CBC, BMP 10/30/16 06:00 10/30/16 06:00 echo 05/2016: mod LVH. sev decreased lv fn. (global). rv not well seen. 1+ mr, mod tr, small effusion. Echo 10/2015: Moderately decreased LV function (global). Nl RV size/fn. 1+ MR. mild-mod TR. mild ao dilation. Trivial effusion. cath 06/2013: 60-70 rpl1, 80-90 d1, subtotal om1 MIBI 08/2014 (pers): no STs; no ischemia seen; predominantly fixed medium-sized inferior/basal inferolat/apico-inferior defect c/w diaphragm attenuation; EF 46% ecg 10/27/16: afib, vr 63, nl qtc, no st changes, lat twis cxr: chronic findings, no sig chf a/p: 56 yo m with h/o afib with prior ?embolic CVA 05/2014 (MERGED WITH [facility]) right visual field cut, repeat cva 08/2016 with left sided weakness, syncope 09/19 with ICH at that time vs other entity on MRI and recurrent syncope 12/2015 (unclear etiology ), Non-ischemic cardiomyopathy dx 07/[address], HTN, HPL, Rt carotid stenosis, IDDM, RLE cellulitis s/p debridement, MSSA bacteremia 10/2015, DAMIAN not on home cpap, ckd, sent from [place] for cp. cp: -atypical, resolved, no suggestion of acs -ce's neg x2, ecg with new twis, nonspecific HTN -bp has been on higher side, will resume home norvasc, titrate up as needed Afib, h/o ischemic cva 05/20, - hemorrhagic CVA 06/19 (Imaging read as ICH or mass lesion): - case discussed with neuro in detail on prior admissions. Contrast enhancing lesion seen 06/19 and the prior heme on MRI were in same location and was thought to be most likely 2/2 post CVA hemorrhagic conversion (i.e. without hi risk for recurrent ICH). Less likely low-grade glioma, which would have very low risk of bleeding if AC resumed--hence the recs at that time were for usual AC considerations for his afib, no special precautions -repeat cva 08/2016 at [facility] with residual left sided weakness -cont eliquis -rate controlled, cont dig cad: -as above -managed medically so far -continue home statin, bb, imdur, hydralazine -con't to defer ASA as pt with stable CAD in past and also on AC chronic syst chf, NICM: -stable. wt below prior baseline (was 350s on prior dc). no chf symptoms. bnp lower than baseline -was on torsemide 40 qd when admitted here 05/2016, but per pt has not been getting past few months at [place]. Can monitor vol status off diuretic for now. mild Ao dilation - nl size on most recent echo - Con't bb. Routine outpatient surveillance CKD: - cr near baseline DAMIAN - CPAP qhs elevated wbc: -infectious w/u per pmd/ID-->on abx for possible cdiff
--- NOTE | 2016-10-30 20:34 | PN ---
Progress Note (short form) - Note Progress Note: Vascular Surgery Pt seen and examined. positive C diff. Stage 2 sacral ulcer. offload area. santyl to area daily. Keep clean from stool will follow Maynor walker DO
[2016-10-30] MEDS ORDERED: DOCUSATE SODIUM 100 MG CAPSULE (FP) PO SCH (22:00)
[2016-10-30] MEDS: COLLAGENASE CLOSTRIDIUM HIST. 30 GRAMS TUBE TP SCH (23:04)
[2016-10-31] MEDS: oxyCODONE HCL 5 MG TABLET PO PRN ×3 (01:37→13:02)
[2016-10-31] MEDS: ACETAMINOPHEN 325 MG TABLET (FP) PO PRN ×3 (01:38→13:02)
[2016-10-31] MEDS: VANCOMYCIN 250 MG/5 ML ORAL SOLUTION PO SCH ×2 (07:02→11:14)
[2016-10-31] MEDS: DIGOXIN 0.125 MG TABLET (FP) PO SCH (09:47)
[2016-10-31] MEDS: ESCITALOPRAM OXALATE 10 MG TABLET (FP) PO SCH (09:47)
[2016-10-31] MEDS: APIXABAN 5 MG TABLET PO SCH (09:47)
[2016-10-31] MEDS: GABAPENTIN 300 MG CAPSULE (FP) PO SCH (09:48)
[2016-10-31] MEDS: TAMSULOSIN HCL 0.4 MG CAP.ER.24H (FP) PO SCH (09:48)
[2016-10-31] MEDS: PANTOPRAZOLE 40 MG TABLET (FP) PO SCH (09:48)
[2016-10-31] MEDS: ISOSORBIDE MONONITRATE 60 MG TAB.SR.24H (FP) PO SCH (09:48)
[2016-10-31] MEDS: BACITRACIN 15 GM TUBE TOPICAL OINTMENT TP SCH (09:50)
[2016-10-31] MEDS ORDERED: amLODIPine BESYLATE 5 MG TABLET (FP) PO SCH (10:00)
[2016-10-31] MEDS ORDERED: PT OWN MED DRAWER 7, Y5N ONE (10:30)
[2016-10-31] MEDS: COLLAGENASE CLOSTRIDIUM HIST. 30 GRAMS TUBE TP SCH (11:13)
--- NOTE | 2016-10-31 14:23 | DS ---
Physical Examination Vital Signs: Vital Signs Temperature 99.4 F 10/31/16 07:46 Pulse Rate 72 10/31/16 09:47 Respiratory Rate 20 10/31/16 07:46 Blood Pressure 158/84 10/31/16 07:46 O2 Sat by Pulse Oximetry (%) 98 10/30/16 21:00 Constitutional: Yes: No Distress Eyes: Yes: WNL HENT: Yes: WNL Neck: Yes: WNL Cardiovascular: Yes: WNL Respiratory: Yes: WNL Gastrointestinal: Yes: WNL Musculoskeletal: Yes: Muscle Weakness Extremities: Yes: WNL Edema: No Peripheral Pulses WNL: Yes Integumentary: Yes: Pressure Ulcer Wound/Incision: Yes: Dressing Dry and Intact Neurological: Yes: Confusion, Loss of Sensation, Numbness, Paresthesia, Pre- Existing Deficit, Unsteady Gait, Weakness ...Motor Strength: LLE, RLE Psychiatric: Yes: Other Labs: CBC, BMP 10/30/16 06:00 10/30/16 06:00 Discharge Summary Reason For Visit: CHEST PAIN Current Active Problems Acute exacerbation of CHF (congestive heart failure) (Acute) Chest pain (Acute) Decubitus ulcer (Acute) Diarrhea (Acute) History of CVA with residual deficit (Chronic) Hyperlipemia (Chronic) Splenic abscess (Chronic) Uncontrolled diabetes mellitus (Chronic) atrial fibrillation (Chronic) Procedures: Principal: chest ct Hospital Course: admitted treated for acute colitis diarrhea, chest pain weakness, on vanco po will continue for 14 days, and hold stool softners while colitis controlled Condition: Fair - Instructions Diet, Activity, Other Instructions: hold stool softeners until colitis treated dysphagia diet Referrals: Hudson Christian [Primary Care Provider] - [facility] - Home Medications Comprehensive Discharge Medication List: Ambulatory Orders Amlodipine Besylate [Norvasc -] 10 mg PO DAILY 10/27/16 Apixaban [Eliquis -] 5 mg PO BID 10/27/16 Atorvastatin Ca [Lipitor] 80 mg PO HS 10/27/16 Bacitracin - [Bacitracin Topical Ointment -] 1 applic TP BID PRN 10/27/16 Digoxin [Lanoxin -] 125 mcg PO Q2D 10/27/16 Escitalopram Oxalate [Lexapro -] 10 mg PO DAILY 10/27/16 Gabapentin [Neurontin] 300 mg PO BID 10/27/16 Isosorbide Mononitrate [Imdur] 60 mg PO BID 10/27/16 Lactulose 10 gm PO DAILY 10/27/16 Oxycodone HCl/Acetaminophen [Percocet 5-325 mg Tablet] 1 tab PO Q6H PRN Pantoprazole Sodium [Protonix] 40 mg PO DAILY 10/27/16 Tamsulosin HCl [Flomax] 0.4 mg PO DAILY 10/27/16 Acetaminophen [Tylenol .Regular Strength -] 650 mg PO Q6H PRN #0 tablet Amlodipine Besylate [Norvasc -] 5 mg PO DAILY tablet 10/31/16 Apixaban [Eliquis -] 5 mg PO BID tablet 10/31/16 Bacitracin - [Bacitracin Topical Ointment -] 1 applic TP DAILY tube 10/31/16 Collagenase Clostridium Hist. [Santyl -] 1 applic TP DAILY tube 10/31/16 Digoxin [Lanoxin -] 0.125 mg PO DAILY tablet 10/31/16 Docusate Sodium [Colace -] 300 mg PO HS cap 10/31/16 Escitalopram Oxalate [Lexapro -] 10 mg PO DAILY tablet 10/31/16 Gabapentin [Neurontin -] 300 mg PO BID cap 10/31/16 Isosorbide Mononitrate [Imdur -] 60 mg PO DAILY tab 10/31/16 Lactulose (Oral Use) [Cephulac -] 20 gm PO TID PRN #0 bottle 10/31/16 Oxycodone HCl [Roxicodone -] 5 mg PO Q6H PRN #0 tablet MDD 4 10/31/16 Pantoprazole Sodium [Protonix -] 40 mg PO DAILY tab 10/31/16 Tamsulosin HCl [Flomax -] 0.4 mg PO DAILY@0830 cap 10/31/16 Vancomycin Oral Solution 125 mg PO Q6HPO 14 Days 10/31/16
[2016-10-31 14:33] VITALS: BP 150/80; PULSE 90; TEMP 98.9
--- NOTE | 2016-10-31 14:44 | PN ---
Progress Note, Physician History of Present Illness: Reports still with abdominal cramps, loose stool No fever/ chills BC (-) Urine c/s contaminant - Current Medication List Current Medications: Active Medications Acetaminophen (Tylenol -) 650 mg PO Q6H PRN PRN Reason: FEVER OR PAIN Last Admin: 10/31/16 13:02 Dose: 650 mg Amlodipine Besylate (Norvasc -) 5 mg PO DAILY [facility] Last Admin: 10/31/16 09:48 Dose: 5 mg Apixaban (Eliquis -) 5 mg PO BID [facility] Last Admin: 10/31/16 09:47 Dose: 5 mg Bacitracin (Bacitracin -) 1 applic TP DAILY [facility] Last Admin: 10/31/16 09:50 Dose: 1 applic Collagenase (Santyl -) 1 applic TP DAILY [facility] Last Admin: 10/31/16 11:13 Dose: 1 applic Digoxin (Lanoxin -) 0.125 mg PO DAILY [facility] Last Admin: 10/31/16 09:47 Dose: 0.125 mg Docusate Sodium (Colace -) 300 mg PO HS [facility] Last Admin: 10/30/16 21:31 Dose: 300 mg Escitalopram Oxalate (Lexapro -) 10 mg PO DAILY [facility] Last Admin: 10/31/16 09:47 Dose: 10 mg Gabapentin (Neurontin -) 300 mg PO BID [facility] Last Admin: 10/31/16 09:48 Dose: 300 mg Isosorbide Mononitrate (Imdur -) 60 mg PO DAILY [facility] Last Admin: 10/31/16 09:48 Dose: 60 mg Lactulose (Cephulac (Oral Use)) 20 gm PO TID PRN PRN Reason: CONSTIPATION Oxycodone HCl (Roxicodone -) 5 mg PO Q6H PRN PRN Reason: PAIN Last Admin: 10/31/16 13:02 Dose: 5 mg Pantoprazole Sodium (Protonix -) 40 mg PO DAILY [facility] Last Admin: 10/31/16 09:48 Dose: 40 mg Tamsulosin HCl (Flomax -) 0.4 mg PO DAILY@0830 [facility] Last Admin: 10/31/16 09:48 Dose: 0.4 mg Vancomycin HCl (Vancomycin Oral Solution) 125 mg PO Q6HPO [facility] Last Admin: 10/31/16 11:14 Dose: 125 mg - Objective Vital Signs: Vital Signs Temperature 98.9 F 10/31/16 14:00 Pulse Rate 90 10/31/16 14:00 Respiratory Rate 20 10/31/16 14:00 Blood Pressure 150/80 10/31/16 14:00 O2 Sat by Pulse Oximetry (%) 98 10/31/16 09:00 Constitutional: Yes: Obese Eyes: Yes: Conjunctiva Clear Cardiovascular: Yes: Regular Rate and Rhythm, S1, S2 Respiratory: Yes: CTA Bilaterally Gastrointestinal: Yes: Normal Bowel Sounds, Soft, Abdomen, Obese. No: Tenderness Edema: Yes Labs: CBC, BMP 10/30/16 06:00 10/30/16 06:00 Assessment/Plan Leukocytosis + C difficile Chest pain syndrome IDDM S/P CVA Continue po vancomycin. Complete 10d course Contact precautions
--- NOTE | 2016-10-31 17:29 | CONSULT ---
Consult - text type - Consultation Consultation Note: NEUROLOGY CONSULTATION is greatly appreciated: This 56 yo RH s man with DM has known Cardiomyopathy, chronic AFib and multiple CVA's and syncopal episodes. Maintained on: amlodipine,Eliquis, digoxin, lipitor, imdur, pantoprazole, tamsulosin, lexapro (10 md) and gabapentin (300 BID). Right carotid stenosis. DAMIAN. Renal insufficiency. S/P embolic (?) CVA (05/20) with right visual field cut. S/P CVA August 2016 with dense left hemiparesis. To [facility]. Now, admitted with chest pain, SOB, and C. diff. with WBC=19.5K IBRAHIMA: Obese. No bruits. Cor Irreg/irreg NEURO: Awake, alert, coop. Fluent speech. Mild OMS Left homonomous hemianopsia Mild ledt facial Gag OK Left flacid hemiparesis. Left arm painful to touch. Moves R side well. Areflexic in the legs. Reduced vibration both feet. IMP: 1. 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 2. Diabetic Peripheral neuropathy. 3. Toxic-Metabolic encephalopathy SUGGEST: Continue antibiotics as per ID Continue Eliquis Update duplex dopplers Increase gabapentin to 300 q 8 hrs. Bedside PT vs. Left sided pain and contractures. Thank you very much, Rodrigo Kruger MD
== END 2016-10-31 17:48 | DRG 194 ==
LOC: JER 09:51 → JERBED 11:21 → J4W 23:31 → J8W 10-29 15:37
PROVIDERS: ADMIT Family Medicine; ATTEND Family Medicine
DX: I13.0 Hypertensive heart and chronic kidney disease with heart failure and stage 1 through stage 4 chronic kidney disease, or unspecified chronic kidney disease (principal); K52.9 Noninfective gastroenteritis and colitis, unspecified; E11.42 Type 2 diabetes mellitus with diabetic polyneuropathy; N18.9 Chronic kidney disease, unspecified; R07.89 Other chest pain; I42.9 Cardiomyopathy, unspecified; I48.91 Unspecified atrial fibrillation; G92 Toxic encephalopathy; I69.354 Hemiplegia and hemiparesis following cerebral infarction affecting left non-dominant side; E11.22 Type 2 diabetes mellitus with diabetic chronic kidney disease; D72.829 Elevated white blood cell count, unspecified; E78.5 Hyperlipidemia, unspecified; E11.65 Type 2 diabetes mellitus with hyperglycemia; I25.10 Atherosclerotic heart disease of native coronary artery without angina pectoris; N39.0 Urinary tract infection, site not specified; N17.9 Acute kidney failure, unspecified; L89.153 Pressure ulcer of sacral region, stage 3; I50.22 Chronic systolic (congestive) heart failure; E66.9 Obesity, unspecified; Z68.37 Body mass index [BMI] 37.0-37.9, adult
CPT/HCPCS: 36415; 71010-TC; 71250-TC; 80053; 80061; 80162; 81003; 81015; 83036; 83721; 83880; 84443; 84484; 85025; 85027; 87040; 87086; 87186; 87324; 87449; 90688; 93005; 93010; 93306-TC; 99285-25; G0008